=== PATIENT | male | born 1960 | race Caucasian/White ===

== ENCOUNTER 2017-06-08 18:45 | Observation (INO) | payer MEDICARE, MEDICAID, SELFPAY | END 2017-06-09 08:45 | disposition home or self-care (01) | PROVIDERS: Admitting Provider Internal Medicine Adolescent Medicine; Emergency Provider Emergency Medicine; Visit Provider Internal Medicine Adolescent Medicine | DX: J44.1 Chronic obstructive pulmonary disease with (acute) exacerbation (principal); Z72.0 Tobacco use; E46 Unspecified protein-calorie malnutrition; Z68.1 Body mass index [BMI] 19.9 or less, adult | CPT/HCPCS: 71020; 80053; 82803; 83605; 85025; 87040; 87275; 87276; 94640; 96365; 96375; 99284; G0378 ==

== ENCOUNTER 2018-06-04 09:57 | Observation (INO) ==
--- NOTE | 2018-06-04 10:19 | Emergency Department Note ---
ED Disposition Clinical Impression: Hypoxia, COPD exacerbation Community acquired pneumonia Qualifiers: Laterality: left Lung location: lower lobe of lung Qualified Code(s): J18.1 - Lobar pneumonia, unspecified organism Disposition: Still a Patient Condition on Discharge: Fair Referrals: Provider,Referral, [Primary Care Provider] - - Critical Care Critical Care Time: Yes Attestation: On , the high probability of a clinically significant, sudden or life threatening deterioration of the following system(s) required my full and direct attention, intervention and personal management. The time I documented below is in addition to time spent performing reported procedures but includes the follo wing listed in this critical care notation. Total Critical Care Time: 35 Vital system(s) involved:: Respiratory Failure My critical care processes included: Assessment & monitoring of V/S, Initial and Re-exams, Data Review/Interpretation, Coordinating Care, Medication Orders and management, Documentation Medical Decision Making - Marck Inquiry Pt receiving controlled substance: No Vital Signs: 06/04/18 10:06 06/04/18 10:12 06/04/18 10:37 Temperature 98.4 F Temperature Source Oral Pulse Rate 77 Pulse Rate [Left Radial] 90 Respiratory Rate 22 Blood Pressure [Right Arm] 128/61 Blood Pressure Mean [Right Arm] 83 Blood Pressure Source [Right Arm] Automatic Cuff Blood Pressure Position [Right Arm] Sitting 02 Sat by Pulse Oximetry 82 L 95 Oxygen Delivery Method Room Air Nasal Cannula Oxygen Flow Rate (LPM) 4 - Lab Data Lab Results 06/04/18 10:18: WBC 15.1 H, RBC 4.43 L, Hgb 14.5, Hct 44.6, MCV 100.6 H, MCH 32.8 H, MCHC 32.6, RDW 13.5, Plt Count 452 H, MPV 7.2 L, Neut % (Auto) 80.0, Lymph % (Auto) 10.8, [place] % (Auto) 8.7, Eos % (Auto) 0.2, Baso % (Auto) 0.2, Neut # (Auto) 12.0 H, Lymph # (Auto) 1.6, [place] # (Auto) 1.3 H, Eos # (Auto) 0.0, Baso # (Auto) 0.0 06/04/18 10:18: Sodium 130 L, Potassium 4.2, Chloride 92 L, Carbon Dioxide 30, Anion Gap 12.2, BUN 14, Creatinine 0.73, Estimated Creat Clear 94, Estimated GFR 110, Est GFR ( Amer) 133, Glucose 115 H, Calcium 9.4, Troponin I < 0.02 06/04/18 10:18: Lactate 1.0 06/04/18 10:41: Influenza Type A Ag Negative, Influenza Type B Ag Negative Result diagrams: 06/04/18 10:18 06/04/18 10:18 Orders (Tests/Meds): ED MEDICATIONS Generic Name Dose Route Start Last Admin Trade Name Fretito PRN Reason Stop Dose Admin Albuterol/Ipratropium 3 ml 06/04/18 14:00 Duoneb 3ml [facility] 07/04/18 13:59 QIDRT MARCELA Ceftriaxone Sodium 1 gm/ 50 mls @ 100 mls/hr 06/04/18 11:15 Sodium Chloride IV 06/18/18 11:14 Q24H MARCELA Protocol Azithromycin 500 mg/ Sodium 250 mls @ 250 mls/hr 06/04/18 11:15 Chloride IV 06/18/18 11:14 Q24H [facility] Protocol Sodium Chloride 10 ml 06/04/18 10:12 Saline Flush 10ml Syringe IV 07/04/18 10:11 NEEDED PRN Maintain IV Site Sodium Chloride 3 ml 06/04/18 10:25 Sodium Chloride 3% 15ml [facility] 07/04/18 10:24 ONCE PRN INDUCE SPUTUM COLLECTION Discontinued Medications Generic Name Dose Route Start Last Admin Trade Name Halina PRN Reason Stop Dose Admin Methylprednisolone Sodium Succinate 125 mg 06/04/18 10:26 06/04/18 10:58 Solu-Medrol 125mg/2ml Vial IV 06/04/18 10:27 125 mg ONCE ONE Administration ORDERS Category Date Time Status XR chest 2V Stat Exams 06/04/18 10:11 Taken Complete Blood Count Auto Diff Stat Lab 06/04/18 10:18 Results Blood Culture Stat Micro 06/04/18 10:18 Received Sputum Culture & Gram Stain Stat Micro 06/04/18 10:30 Ordered 12-lead EKG Request [ECG Request by /Nse] Stat Y 06/04/18 10:11 Ordered - Radiology Data #1 Image(s): Chest Image Reviewed: Yes I reviewed the patient's radiology image, Yes I discussed the image results w/the radiologist COPD. Questionable tiny infiltrate versus rib overlap left base, otherwise no acute change - ECG Data Tracing #1 EKG interpreted by Lb Solomon MD: Rhythm: sinus Rate: 78 [place]: normal Ectopy: none Conduction: normal ST Segment Changes: none T Wave Changes: none Q Waves: none Poor R wave progression No evidence of acute injury or ischemia Baseline artifact present, but I consider the EKG adequate for accurate interpretation. - Physician Consults Physician Consulted: Amilcar Time: 11:10 Reason -: Admission Comment/Response: Agrees to admit the patient to the hospital. We discussed the patient's clinical information, including history, exam, laboratory and radiology results and ED course. Per hospital procedure, I will write temporary bridge inpatient orders on the patient. Specific orders requested by the admitting physician: Continue antibiotics, steroids, nebulizer treatments, oxygen General Adult HPI - General Chief complaint: Shortness of Breath/Dyspnea Stated complaint: Soa Time Seen by Provider: 06/04/18 10:00 Mode of Arrival: Ambulatory Limitations: No Limitations Description of Symptoms (Recalled from ER Triage Doc. by RN): to ed per pvt car with c/o sob, productive cough with light green sputum chest tightness x 3-4 days pt with hx of COPD states out of inhalers. c/o fever yesterday. cpta none - History of Present Illness HPI narrative: The patient has COPD, still currently smokes, complains of an illness that started about 4 days ago with shortness of breath, wheezing, cough with ex cessive yellow sputum production, fever, rhinorrhea. He is not on oxygen or nebulizers at home. - Related Data Home Medications Medication Instructions Recorded Confirmed Carvedilol [Carvedilol 3.125mg Tab] 3.125 mg PO BID 05/22/18 06/04/18 Duloxetine HCl [Cymbalta] 60 mg PO DAILY 05/22/18 06/04/18 Sacubitril/Valsartan [Entresto 1 tab PO BID 05/22/18 06/04/18 24/26mg Tablet] Allergies Allergy/AdvReac Type Severity Reaction Status Date / Time methocarbamol [From ROBAXIN] Allergy Unknown Verified 05/22/18 10:43 pregabalin [From LYRICA] Allergy Unknown Verified 05/22/18 10:43 [facility] History - Hepatitis A Screen Drug use history?: No High risk sexual behaviors?: No History of sexually transmitted infection?: No Currently employed?: No Childcare worker?: No Do you have indoor plumbing?: Yes Do you have electricity?: Yes Attestation statement:: This patient has been screened for Hepatitis A risk factors. 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 Father - CHF ROS Obtained: Yes All systems reviewed & no additional complaints - Constitutional Constitutional: Reports fever(s) - ENT Ears, Nose, Mouth, and Throat: Reports nasal discharge - Cardiovascular Cardiovascular: Denies chest pain - Respiratory Respiratory: Yes cough, Yes dyspnea, Yes excessive phlegm production - Gastrointestinal Gastrointestingal: Reports: diarrhea. Denies: vomiting Physical Exam - General General appearance: alert, in no apparent distress - Head Head exam: atraumatic, normocephalic - Eye Eye exam: Present: normal appearance, PERRL, EOMI - ENT ENT exam: Present: mucous membranes moist - Neck Neck exam: Present: normal inspection, trachea midline - Chest Chest inspection: Present: normal inspection, symmetric chest wall rise - Respiratory Respiratory exam: Present: wheezes - Cardiovascular Cardiovascular exam: Present: regular rate, normal rhythm, normal heart sounds - Abdominal Exam Abdominal exam: Present: soft, distention. Absent: tenderness, guarding - Extremities Exam Extremities exam: Present: normal inspection, full ROM - Neurological Exam Neurological exam: Present: alert, oriented X3 - Psychiatric Psychiatric exam: Present: normal affect, normal mood - Skin Skin exam: Present: warm, dry
[2018-06-04 10:46] LABS: Anion Gap 12.2 mEq/L (5-15); Blood Urea Nitrogen 14 mg/dL (7-18); Calcium 9.4 mg/dL (8.5-10.1); Carbon Dioxide 30 mmol/L (21.0-32.0); Chloride 92 mmol/L (98-107); Glucose 115 mg/dL (74-106); Potassium 4.2 mmoL/L (3.5-5.1); Sodium 130 mmol/L (136-145)
[2018-06-04 10:50] LABS: Basophils % 0.2 % (0.1-2.0); Eosinophils % 0.2 % (0.1-12.0); Hematocrit 44.6 % (42.0-52.0); Hemoglobin 14.5 g/dL (14.1-18.0); Lymphocytes # 1.6 K/mm3 (0.7-4.5); Lymphocytes % 10.8 % (10-50); Mean Corpuscular HGB Conc 32.6 g/dL (31.8-35.4); Mean Corpuscular Hemoglobin 32.8 pg (27.0-31.2); Mean Corpuscular Volume 100.6 fl (80-94); Mean Platelet Volume 7.2 fl (7.4-10.4); Monocytes # 1.3 K/mm3 (0.1-1.0); Monocytes % 8.7 % (1.7-9.3); Platelet Count 452 K/mm3 (142-424); Red Blood Count 4.43 M/mm3 (4.60-6.20); Red Cell Distribution Width 13.5 % (11.5-17.5); White Blood Count 15.1 K/mm3 (4.8-10.8)
[2018-06-04 11:34] LABS: Lymphocytes % 10 % (10-50); Monocytes % 7 % (2-9); Neutrophils % 83 % (42-76); Total Cells Counted 100
--- NOTE | 2018-06-04 13:12 | Pharmacy Consult Notes ---
[facility] Pharmacy VTE Monitoring - Patient Demographics Admission date: 06/04/18 Report Date: 06/04/18 Time: 13:12 Allergies/Adverse Reactions: Patient Allergies methocarbamol [From ROBAXIN] Allergy (Unknown, Verified 05/22/18 10:43) pregabalin [From LYRICA] Allergy (Unknown, Verified 05/22/18 10:43) Height: 1.88 m Weight: 60.781 kg Patient Problems: Current Active Problems Community acquired pneumonia (Acute) Hypoxia (Acute) COPD exacerbation (Acute) - VTE Risk Labs: VTE Related Lab Results Hgb 14.5 g/dL (14.1-18.0) 06/04/18 10:18 Hct 44.6 % (42.0-52.0) 06/04/18 10:18 Plt Count 452 K/mm3 (142-424) H 06/04/18 10:18 BUN 14 mg/dL (7-18) 06/04/18 10:18 Creatinine 0.73 mg/dL (0.70-1.30) 06/04/18 10:18 Estimated Creat Clear 94 mL/min (50-200) 06/04/18 10:18 Clinical Trial Participant: No - Prophylaxis VTE Prophylaxis Ordered?: Yes Types of VTE Prophylaxis: TEDS Knee High
--- NOTE | 2018-06-04 17:49 | History & Physical Report ---
*Admission Date: 06/04/18 *Chief complaint: Cough/shortness of air *History of present illness: 57-year-old white male with fragmented medical care, poor nutritional status, significant COPD and heavy smoking history who presented to the emergency department with cough, congestion. Found to have infiltrates in his chest, found to have hypoxia, admitted to hospital for IV antibiotics and pulmonary toilet and IV steroids. [facility] History I have reviewed the patient's past medical history: Yes Medical History: Reports:: Chronic Obstructive Pulmonary Disease (COPD) Other Medical History: Reports: Arthritis, Other (Herpes zoster ophthalmicus) Amputation: No Fractures: No - *Social History Smoking Status: Current every day smoker Tobacco Type: cigarettes # Packs/Day (cigarettes): 2 Alcohol Intake: never Alcohol Intake Frequency:: a few times a month Substance Use Type: denies use Occupational Status: disabled - Psychiatric History Expresses thoughts of harming self/others: None Suicide Plan Description: No Plan *Family Hx:: No significant family history Review of Systems - Review of Systems Review of systems:: pertinent systems reviewed and negative unless documented below - Constitutional Reports anorexia, Reports body ache(s), Reports chills, Denies headache(s) - Eyes Denies blurry vision, Denies change in vision - ENT Denies bleeding gums, Denies change in voice - *Cardiovascular Reports shortness of breath, Reports shortness of breath with activity, Denies chest pain, Denies chest pain at rest, Denies irregular heart rhythm, Denies leg swelling, Denies leg sores - *Respiratory Reports change in phlegm color, Reports chest congestion, Reports cough, Reports shortness of breath, Reports excessive phlegm production, Denies coughing up blood - *Gastrointestinal Denies abdominal pain, Denies belching, Denies coffee ground vomit, Denies constipation - *Genitourinary Denies difficulty urinating - *Musculoskeletal Denies abnormal walking Meds Home Medications Medication Instructions Recorded Confirmed Type Carvedilol [Carvedilol 3.125mg Tab] 3.125 mg PO BID 05/22/18 06/04/18 History Duloxetine HCl [Cymbalta] 60 mg PO DAILY 05/22/18 06/04/18 History Sacubitril/Valsartan [Entresto 1 tab PO BID 05/22/18 06/04/18 History 24/26mg Tablet] Tizanidine HCl 4 mg PO TIDP PRN 06/04/18 06/04/18 History Allergies Allergy/AdvReac Type Severity Reaction Status Date / Time methocarbamol [From ROBAXIN] Allergy Unknown Verified 06/04/18 13:28 pregabalin [From LYRICA] Allergy Unknown Verified 06/04/18 13:28 ibuprofen AdvReac Verified 06/04/18 13:29 Exam Vital signs and Labs for Last 24 Hours: Temp Pulse Resp BP Pulse Ox 97.7 F 69 20 96/55 L 93 L 06/04/18 16:00 06/04/18 16:00 06/04/18 16:00 06/04/18 16:00 06/04/18 16:00 Laboratory Results - last 24 hr 06/04/18 10:18: WBC 15.1 H, RBC 4.43 L, Hgb 14.5, Hct 44.6, MCV 100.6 H, MCH 32.8 H, MCHC 32.6, RDW 13.5, Plt Count 452 H, MPV 7.2 L, Neut % (Auto) 80.0, Lymph % (Auto) 10.8, [place] % (Auto) 8.7, Eos % (Auto) 0.2, Baso % (Auto) 0.2, Neut # (Auto) 12.0 H, Lymph # (Auto) 1.6, [place] # (Auto) 1.3 H, Eos # (Auto) 0.0, Baso # (Auto) 0.0, Total Counted 100, Neutrophils % (Manual) 83 H, Lymphocytes % (Manual) 10, Monocytes % (Manual) 7, Platelet Estimate Slight increase 06/04/18 10:18: Sodium 130 L, Potassium 4.2, Chloride 92 L, Carbon Dioxide 30, Anion Gap 12.2, BUN 14, Creatinine 0.73, Estimated Creat Clear 94, Estimated GFR 110, Est GFR ( Amer) 133, Glucose 115 H, Calcium 9.4, Troponin I < 0.02 06/04/18 10:18: Lactate 1.0 06/04/18 10:41: Influenza Type A Ag Negative, Influenza Type B Ag Negative I & O for Last 24 hours: Intake & Output 06/02/18 06/03/18 06/04/18 06/05/18 11:59 11:59 11:59 11:59 Weight 120 lb 6 oz 134 lb Microbiology Reports for the Last 24 Hours: Microbiology 06/04/18 10:30 Sputum - Expectorated Sputum Gram Stain - Final Narrative: Patient is pleasant, alert and oriented. Appears much older than stated age, appears to be cachectic, poor nutrition, significant skin wrinkling. Patient has multiple homemade tattoos on face, wrists and arms. Lungs have rhonchi and crackles in all lung bui, fairly symmetric air entry. No deviation of trachea. Coughs up green/ivania sputum. Heart rate regular, no murmurs. Although his lung sounds diminished the accuracy of the exam. Abdomen scaphoid. No clubbing or cyanosis. No capillary refill deficits. Cranial nerves are intact. Patient is slightly weak but symmetric strength in his extremities. Assessment and Plan (1) Protein-calorie malnutrition, moderate Current visit: Yes Status: Acute Category: Medical Code(s): E44.0 - Moderate protein-calorie malnutrition Complicates all aspects of his care. Nutritional evaluation tomorrow (2) COPD exacerbation Current visit: Yes Status: Acute Category: Medical Code(s): J44.1 - Chronic obstructive pulmonary disease with (acute) exacerbation Agree with admission for IV antibiotics, enhanced pulmonary toilet and IV steroids. (3) Community acquired pneumonia Current visit: Yes Status: Acute Qualifiers: Laterality: left Lung location: lower lobe of lung Qualified Code(s): J18.1 - Lobar pneumonia, unspecified organism Category: Medical Code(s): J18.9 - Pneumonia, unspecified organism Antibiotics as noted above
[2018-06-05 07:23] LABS: Basophils % 0.1 % (0.1-2.0); Hematocrit 41.9 % (42.0-52.0); Hemoglobin 13.4 g/dL (14.1-18.0); Lymphocytes # 1.1 K/mm3 (0.7-4.5); Lymphocytes % 8.3 % (10-50); Mean Corpuscular Hemoglobin 32.3 pg (27.0-31.2); Mean Corpuscular Volume 100.9 fl (80-94); Mean Platelet Volume 7.2 fl (7.4-10.4); Monocytes # 0.5 K/mm3 (0.1-1.0); Monocytes % 4.1 % (1.7-9.3); Neutrophils # 11.3 K/mm3 (1.8-7.8); Neutrophils % 87.5 % (37.0-80.0); Platelet Count 446 K/mm3 (142-424); Red Blood Count 4.15 M/mm3 (4.60-6.20); Red Cell Distribution Width 13.5 % (11.5-17.5); White Blood Count 12.9 K/mm3 (4.8-10.8)
[2018-06-05 07:54] LABS: Albumin Level 2.9 gm/dL (3.4-5.0); Albumin/Globulin Ratio 0.7 (1.1-1.8); Bilirubin,Total 0.4 mg/dL (0.2-1.0); Calcium 9.1 mg/dL (8.5-10.1); Globulin 4.4 gm/dl (1.3-3.2); Total Protein,Serum 7.3 gm/dL (6.4-8.2)
[2018-06-05 08:16] LABS: Lymphocytes % 6 % (10-50); Monocytes % 4 % (2-9); Neutrophils % 90 % (42-76); Total Cells Counted 100
--- NOTE | 2018-06-05 08:32 | Discharge Summary ---
General - General Admission date:: 06/04/18 Discharge date: 06/05/18 HPI HPI: 57-year-old white male with fragmented medical care, poor nutritional status, significant COPD and heavy smoking history who presented to the emergency department with cough, congestion. Found to have infiltrates in his chest, found to have hypoxia, admitted to hospital for IV antibiotics and pulmonary toilet and IV steroids. Hospital Course Hospital Course: Patient was admitted, placed on IV antibiotics and steroids, improved nicely overnight. This morning has no oxygen requirement, is 92% on room air. Feels much better and wishes to go home. Plan will be to discharge home. We will follow him up in our offices. Medication sent to pharmacy and we will begin maintenance and as needed inhalers. Objective Vital signs: Temp Pulse Resp BP Pulse Ox 97.6 F 65 18 111/58 L 91 L 06/05/18 08:00 06/05/18 08:00 06/05/18 08:00 06/05/18 08:00 06/05/18 08:00 Narrative: Overall patient looks much better. Better air entry. Rhonchi in both lung bui. Abdomen soft and nontender. Oropharynx clear. Heart rate regular without murmurs. No focal neurologic deaf. Results Labs on day of discharge: Labs from last 24 hours 06/05/18 06/05/18 06/04/18 06:55 06:55 10:41 WBC 12.9 H RBC 4.15 L Hgb 13.4 L Hct 41.9 L MCV 100.9 H MCH 32.3 H MCHC 32.0 RDW 13.5 Plt Count 446 H MPV 7.2 L Neut % (Auto) 87.5 H Lymph % (Auto) 8.3 L [place] % (Auto) 4.1 Eos % (Auto) 0.0 L Baso % (Auto) 0.1 Neut # (Auto) 11.3 H Lymph # (Auto) 1.1 [place] # (Auto) 0.5 Eos # (Auto) 0.0 Baso # (Auto) 0.0 Total Counted 100 Neutrophils % (Manual) 90 H Lymphocytes % (Manual) 6 L Monocytes % (Manual) 4 Platelet Estimate Slight increase Sodium 131 L Potassium 4.0 Chloride 95 L Carbon Dioxide 30 Anion Gap 10.0 BUN 19 H D Creatinine 0.65 L Estimated Creat Clear 105 Estimated GFR 126 Est GFR ( Amer) 152 Glucose 164 H D Lactate Calcium 9.1 Total Bilirubin 0.4 AST 25 ALT 45 Alkaline Phosphatase 125 H Troponin I Total Protein 7.3 Albumin 2.9 L Globulin 4.4 H Albumin/Globulin Ratio 0.7 L Influenza Type A Ag Negative Influenza Type B Ag Negative 06/04/18 06/04/18 06/04/18 10:18 10:18 10:18 WBC 15.1 H RBC 4.43 L Hgb 14.5 Hct 44.6 MCV 100.6 H MCH 32.8 H MCHC 32.6 RDW 13.5 Plt Count 452 H MPV 7.2 L Neut % (Auto) 80.0 Lymph % (Auto) 10.8 [place] % (Auto) 8.7 Eos % (Auto) 0.2 Baso % (Auto) 0.2 Neut # (Auto) 12.0 H Lymph # (Auto) 1.6 [place] # (Auto) 1.3 H Eos # (Auto) 0.0 Baso # (Auto) 0.0 Total Counted 100 Neutrophils % (Manual) 83 H Lymphocytes % (Manual) 10 Monocytes % (Manual) 7 Platelet Estimate Slight increase Sodium 130 L Potassium 4.2 Chloride 92 L Carbon Dioxide 30 Anion Gap 12.2 BUN 14 Creatinine 0.73 Estimated Creat Clear 94 Estimated GFR 110 Est GFR ( Amer) 133 Glucose 115 H Lactate 1.0 Calcium 9.4 Total Bilirubin AST ALT Alkaline Phosphatase Troponin I < 0.02 Total Protein Albumin Globulin Albumin/Globulin Ratio Influenza Type A Ag Influenza Type B Ag DS: Diagnosis - Discharge Diagnosis (1) Protein-calorie malnutrition, moderate Status: Chronic (2) COPD exacerbation Status: Acute (3) Community acquired pneumonia Status: Acute Discharge Plan - Patient Discharge Instructions ACTIVITY: Continue current activity DIET: continue same diet - Follow up Plan Follow up with: Ana Liang APRN [Nurse Practitioner] - 06/12/18 12:00 pm Disposition: Home, Self-Half-Way Medications: Home Medications Medication Instructions Recorded Confirmed Type Carvedilol [Carvedilol 3.125mg Tab] 3.125 mg PO BID 05/22/18 06/04/18 History Duloxetine HCl [Cymbalta] 60 mg PO DAILY 05/22/18 06/04/18 History Sacubitril/Valsartan [Entresto 1 tab PO BID 05/22/18 06/04/18 History 24/26mg Tablet] Tizanidine HCl 4 mg PO TIDP PRN 06/04/18 06/04/18 History Albuterol Sulfate [Proair Hfa 2 puffs IH Q4HP PRN #1 inh 06/05/18 Rx 90mcg/puff Inh] Azithromycin [Zithromax 250mg 250 mg PO DIRECTED #6 tab 06/05/18 Rx tab] Cefdinir [Omnicef 300mg Capsule] 300 mg PO BID #14 cap 06/05/18 Rx Umeclidinium Brm/Vilanterol Tr 1 each IH DAILY #1 blst.w.dev 06/05/18 Rx [Anoro Ellipta 62.5-25 Mcg INH] predniSONE [Deltasone 20mg 20 mg PO BID 7 Days #14 tab 06/05/18 Rx tablet] Prescriptions/Medication Reconciliation: New Azithromycin [Zithromax 250mg tab] 250 mg PO DIRECTED #6 tab Cefdinir [Omnicef 300mg Capsule] 300 mg PO BID #14 cap predniSONE [Deltasone 20mg tablet] 20 mg PO BID 7 Days #14 tab Umeclidinium Brm/Vilanterol Tr [Anoro Ellipta 62.5-25 Mcg INH] 1 each IH DAILY #1 blst.w.dev Albuterol Sulfate [Proair Hfa 90mcg/puff Inh] 2 puffs IH Q4HP PRN #1 inh PRN Reason: Shortness Of Breath Or Wheezing Continue Sacubitril/Valsartan [Entresto 24/26mg Tablet] 1 tab PO BID Duloxetine HCl [Cymbalta] 60 mg PO DAILY Carvedilol [Carvedilol 3.125mg Tab] 3.125 mg PO BID Tizanidine HCl 4 mg PO TIDP PRN PRN Reason: MUSCLE SPASMS
== END 2018-06-05 09:08 | disposition home or self-care (01) ==
LOC: ER 09:57 → 2ND 09:57
PROVIDERS: ADMIT Internal Medicine Adolescent Medicine; ATTEND Internal Medicine Adolescent Medicine

== ENCOUNTER → 2018-08-19 10:52 | Outpatient (CLI) | payer MEDICARE, MEDICAID, SELFPAY ==
--- NOTE | 2018-08-19 10:54 | CA_ITS ---
CA echo doppler complete PROCEDURE: INDICATIONS FOR THE TEST: Chest pain COPDX Heart Murmur Tobacco SmokingX Palpitations Fatigue Syncope Edema Hypertension Diabetes Mellitus Rheumatic Fever SOB CHRISTENSEN Obesity Hyperlipidemia Family History HD Additional History CM, PATIENT INFORMATION HEIGHT: 72 WEIGHT:129 GENDER: Male B/P:118/67 2-D/M-MODE INTERPRETATION: 2-D MEASUREMENTS OBSERVED VALUES IN CMS Right Ventricular Dimension (RVDd) 1.5 Interventricular Septum (Thickness)(IVsd) .8 Left Ventricular Internal Dimensions(LVIDd) 6.0 Left Ventricular Posterior Wall (Thickness)(LVPWd) .8 Aortic Root 3.6 Aortic Cusp Separation 2.2 Left Atrial Dimensions (LAD) 2.4 2D 1. Left atrium is mildly enlarged, left ventricle is mildly dilated, moderately reduced left ventricular systolic function, visually estimated ejection fraction approximately 40% left ventricle is globally hypokinetic. 2. The right atrium and right ventricle are normal size and contractility. 3. The aortic valve is minimally thickened and fibrosed. 4. The mitral and tricuspid valve leaflets are minimally thickened 5. The pulmonic valve is poorly present. 6. No significant pericardial effusion noted. DOPPLER INTERROGATION: Doppler interrogation of the aortic, mitral and tricuspid valvular presence of mild mitral and tricuspid regurgitation, calculated right ventricular systolic pressure is 37 mmHg, diastolic parameters are within normal range. CONCLUSION: 1. Mildly enlarged left atrium, mildly dilated left ventricle, moderately reduced left ventricular systolic function, visually estimated ejection fraction approximately 40%, left ventricle is globally hypokinetic. Diastolic parameters are within normal range. 2. Mild mitral and tricuspid regurgitation 3. No significant pericardial effusion noted.
== END ==
PROVIDERS: Visit Provider Physician Assistant
DX: B02.30 Zoster ocular disease, unspecified (principal); F17.200 Nicotine dependence, unspecified, uncomplicated; G62.9 Polyneuropathy, unspecified; H57.11 Ocular pain, right eye; I42.9 Cardiomyopathy, unspecified; Z01.818 Encounter for other preprocedural examination
CPT/HCPCS: 93306

== ENCOUNTER 2019-05-26 13:36 | Observation (INO) ==
--- NOTE | 2019-05-26 13:50 | Emergency Department Note ---
ED Disposition Clinical Impression: Hypoxia Community acquired pneumonia Qualifiers: Laterality: right Lung location: lower lobe of lung Qualified Code(s): J18.9 - Pneumonia, unspecified organism COPD (chronic obstructive pulmonary disease) Qualifiers: COPD type: unspecified COPD Qualified Code(s): J44.9 - Chronic obstructive pulmonary disease, unspecified Disposition: Admitted As Inpatient Condition on Discharge: Fair Referrals: Ricki Bales JR, MD [Primary Care Provider] - - Critical Care Critical Care Time: No Attestation: On , the high probability of a clinically significant, sudden or life threatening deterioration of the following system(s) required my full and direct attention, intervention and personal management. The time I documented below is in addition to time spent performing reported procedures but includes the following listed in this critical care notation. Medical Decision Making - [place] Inquiry Pt receiving controlled substance: No Vital Signs: 05/26/19 13:38 Temperature 98.5 F Temperature Source Oral Pulse Rate [Right Radial] 65 Respiratory Rate 20 Blood Pressure [Right Arm] 136/75 Blood Pressure Mean [Right Arm] 95 02 Sat by Pulse Oximetry 87 L Oxygen Delivery Method Room Air - Lab Data Lab Results 05/26/19 13:45: WBC 11.7 H, RBC 4.19 L, Hgb 13.2 L, Hct 41.3 L, MCV 98.5 H, MCH 31.6 H, MCHC 32.0, RDW 13.0, Plt Count 524 H, MPV 7.8, Neut % (Auto) 72.9, Lymph % (Auto) 15.4, [place] % (Auto) 9.4 H, Eos % (Auto) 1.8, Baso % (Auto) 0.3, Neut # (Auto) 8.5 H, Lymph # (Auto) 1.8, [place] # (Auto) 1.1 H, Eos # (Auto) 0.2, Baso # (Auto) 0.0 05/26/19 13:45: Sodium 135 L, Potassium 4.2, Chloride 95 L, Carbon Dioxide 33 H, Anion Gap 11.2, BUN 7, Creatinine 0.61 L, Estimated Creat Clear 116, Estimated GFR 135, Est GFR ( Amer) 163, Glucose 97, Calcium 8.7, Troponin I < 0.02 05/26/19 13:45: Total Bilirubin 0.4, Direct Bilirubin 0.1, Indirect Bilirubin 0.3, AST 7 L, ALT 21, Alkaline Phosphatase 136 H, Total Protein 7.5, Albumin 2.7 L 05/26/19 14:05: Influenza Type A Ag Negative, Influenza Type B Ag Negative Result diagrams: 05/26/19 13:45 05/26/19 13:45 Orders (Tests/Meds): ED MEDICATIONS Generic Name Dose Route Start Last Admin Trade Name Freq PRN Reason Stop Dose Admin Ceftriaxone Sodium 1 gm/ 50 mls @ 100 mls/hr 05/26/19 15:00 05/26/19 15:18 Sodium Chloride IV 06/09/19 14:59 100 mls/hr Q24H MARCELA Administration Protocol Azithromycin 500 mg/ Sodium 250 mls @ 250 mls/hr 05/26/19 15:00 Chloride IV 06/09/19 14:59 Q24H MARCELA Protocol Discontinued Medications Generic Name Dose Route Start Last Admin Trade Name Freq PRN Reason Stop Dose Admin Aspirin 324 mg 05/26/19 13:45 05/26/19 13:59 Aspirin 81mg Chewable Tablet PO 05/26/19 13:46 324 mg ONCE ONE Administration ORDERS Category Date Time Status Lactic Acid Stat Lab 05/26/19 15:00 Received Troponin I Q3H Lab 05/26/19 16:45 Ordered Troponin I Q3H Lab 05/26/19 19:45 Ordered Blood Culture Stat Micro 05/26/19 13:45 Received - Radiology Data #1 Image(s): Chest Image Reviewed: Yes I have reviewed radiologist's interpretation FINDINGS: The cardiomediastinal silhouette and pulmonary vascularity are within normal limits. There are new infiltrates in the right upper lobe and in the right perihilar lung field. Chronic increased interstitial markings are otherwise noted. Some increased density associated with posterior lateral right 6th rib fracture is noted likely representing callus formation. A 5 millimeter nodule like opacity projects over the left lung field between the anterior 4th and 5th ribs. Developing pulmonary nodule is not excluded. Follow-up is recommended. No acute bony abnormalities. IMPRESSION: New right sided infiltrates superimposed on chronic interstitial pneumonitis. New 5 millimeter nodule like opacity projecting over left mid lung field for which follow-up is recommended. Dictated by: Daniel Motley 05/26/2019 14:21 Electronically signed by Daniel Motley in [place] 05/26/2019 14:21 - ECG Data Tracing #1 EKG interpreted by Lb Solomon MD: Rhythm: sinus Rate: 65 [place]: normal Ectopy: none Conduction: normal ST Segment Changes: none T Wave Changes: none Q Waves: none No evidence of acute ischemia or injury Normal electrocardiogram General Adult HPI - General Chief complaint: Chest Pain Stated complaint: Chest Pain Time Seen by Provider: 05/26/19 14:03 Mode of Arrival: Ambulatory Limitations: No Limitations Description of Symptoms (Recalled from ER Triage Doc. by RN): pt presents to ed with c/o chest pain x 3-4 days. pt describes the pain as a tightness in his upper chest.pt denies fever. - History of Present Illness HPI narrative: States that he has had a "virus" for 4 to 5 days. He has a productive cough, rhinorrhea, subjective fever. He says his abdomen hurts from coughing so much and now it has moved up into his anterior chest, which now also hurts with coughing. Denies vomiting or diarrhea. He is a smoker. He has a prior history of pneumonia. He says he had a flu shot this year. He has COPD. - Related Data Home Medications Medication Instructions Recorded Confirmed duloxetine 60 mg capsule,delayed 100 mg PO TID cap 08/19/18 release Previous Rx's Medication Instructions Recorded Umeclidinium Brm/Vilanterol Tr 1 each IH DAILY #1 blst.w.dev 06/05/18 [Anoro Ellipta 62.5-25 Mcg INH] tizanidine 4 mg capsule 4 mg PO TID PRN #90 cap 06/19/18 carvedilol 3.125 mg tablet 3.125 mg PO BID #60 tab 12/29/18 Hydrocod/Acet 5/325 mg [[place] 1 tab PO Q6HP PRN #10 tab 01/20/19 5/325mg tablet] sacubitril 24 mg-valsartan 26 mg 1 tab PO BID #60 tab 03/09/19 tablet Allergies Allergy/AdvReac Type Severity Reaction Status Date / Time methocarbamol [From ROBAXIN] Allergy Unknown Verified 05/26/19 13:44 pregabalin [From LYRICA] Allergy Unknown Verified 05/26/19 13:44 ibuprofen AdvReac Verified 05/26/19 13:44 [facility]H History - Hepatitis A Screen Drug use history?: No High risk sexual behaviors?: No History of sexually transmitted infection?: No Currently employed?: No Childcare worker?: No Do you have indoor plumbing?: Yes Do you have electricity?: Yes Attestation statement:: This patient has been screened for Hepatitis A risk factors. I have reviewed the patient's past medical history: Yes Medical History: Reports:: Chronic Obstructive Pulmonary Disease (COPD) Denies:: Diabetes Mellitus Type 1, Diabetes Mellitus Type 2 Other Medical History: Reports: Arthritis, Other (Herpes zoster ophthalmicus) Amputation: No Fractures: Yes Comment: Neck surgery X2 - Social History Smoking Status: Current every day smoker Tobacco Type: cigarettes # Packs/Day (cigarettes): 1 Alcohol Intake: never Alcohol Intake Frequency:: a few times a month Substance Use Type: denies use Occupational Status: disabled Family Hx:: No significant family history Comment: Mother - COPD & CHF. Father - CHF ROS Obtained: Yes All systems reviewed & no additional complaints - Constitutional Constitutional: Reports fever(s) (Subjective) - ENT Ears, Nose, Mouth, and Throat: Reports nasal discharge, Denies sore throat - Cardiovascular Cardiovascular: Reports chest pain - Respiratory Respiratory: Yes cough, Yes pain with cough - Gastrointestinal Gastrointestingal: Reports: abdominal pain. Denies: diarrhea, vomiting Physical Exam - General General appearance: alert, in no apparent distress - Head Head exam: atraumatic, normocephalic - Eye Eye exam: Present: normal appearance, EOMI - ENT ENT exam: Present: normal exam, normal oropharynx, mucous membranes moist - Neck Neck exam: Present: normal inspection, trachea midline - Chest Chest inspection: Present: normal inspection, symmetric chest wall rise - Respiratory Respiratory exam: Present: normal lung sounds bilaterally. Absent: respiratory distress - Cardiovascular Cardiovascular exam: Present: regular rate, normal rhythm, normal heart sounds - Abdominal Exam Abdominal exam: Present: soft, normal bowel sounds. Absent: distention, tenderness - Extremities Exam Extremities exam: Present: normal inspection - Neurological Exam Neurological exam: Present: alert, oriented X3 - Psychiatric Psychiatric exam: Present: normal affect, normal mood - Skin Skin exam: Present: warm, dry
[2019-05-26 14:02] LABS: Basophils % 0.3 % (0.1-2.0); Eosinophils # 0.2 K/mm3 (0.0-0.4); Eosinophils % 1.8 % (0.1-12.0); Hematocrit 41.3 % (42.0-52.0); Hemoglobin 13.2 g/dL (14.1-18.0); Lymphocytes # 1.8 K/mm3 (0.7-4.5); Lymphocytes % 15.4 % (10-50); Mean Corpuscular Volume 98.5 fl (80-94); Mean Platelet Volume 7.8 fl (7.4-10.4); Monocytes # 1.1 K/mm3 (0.1-1.0); Monocytes % 9.4 % (1.7-9.3); Neutrophils # 8.5 K/mm3 (1.8-7.8); Neutrophils % 72.9 % (37.0-80.0); Platelet Count 524 K/mm3 (142-424); Red Blood Count 4.19 M/mm3 (4.60-6.20); White Blood Count 11.7 K/mm3 (4.8-10.8)
--- NOTE | 2019-05-26 14:10 | Electrocardiograph Report ---
APPROVED REPORT Exam: Resting ECG HR:65 bpm ECG Measurements Heart Rate 65 AXES PA 138 P 83 QRSd 82 QRS 80 QT 398 T78 QTc 413 <Conclusion> Normal sinus rhythm Normal ECG Electronically signed by : Alli Fitzgerald, 05/26/2019 14:09:35
[2019-05-26 14:12] LABS: Albumin Level 2.7 gm/dL (3.4-5.0); Bilirubin,Direct 0.1 mg/dL (0.0-0.2); Bilirubin,Indirect 0.3 mg/dL (0.0-0.9); Bilirubin,Total 0.4 mg/dL (0.2-1.0); Total Protein,Serum 7.5 gm/dL (6.4-8.2)
[2019-05-26 14:13] LABS: Anion Gap 11.2 mEq/L (5-15); Blood Urea Nitrogen 7 mg/dL (7-18); Calcium 8.7 mg/dL (8.5-10.1); Carbon Dioxide 33 mmol/L (21.0-32.0); Chloride 95 mmol/L (98-107); Glucose 97 mg/dL (74-106); Sodium 135 mmol/L (136-145)
--- NOTE | 2019-05-26 20:19 | History & Physical Report ---
*Admission Date: 05/26/19 *Chief complaint: sob *History of present illness: this pt presented to the ed with sob over the last 3-4 days - hx od copd -pt presents to ed with c/o chest pain x 3-4 days. pt describes the pain as a tightness in his upper chest States that he has had a "virus" for 4 to 5 days. He has a productive cough, rhinorrhea, subjective fever. He says his abdomen hurts from coughing so much and now it has moved up into his anterior chest, which now also hurts with coughing. Denies vomiting or diarrhea. He is a smoker. He has a prior history of pneumonia. He says he had a flu shot this year. He has COPD. pt was admitted with acute excerbation of copd with cap - pt was admitted for ivf and abx and pul toilet [facility] History I have reviewed the patient's past medical history: Yes Medical History: Reports:: Chronic Obstructive Pulmonary Disease (COPD) Denies:: Cancer, Diabetes Mellitus Type 1, Diabetes Mellitus Type 2, MRSA *Have you ever received a pneumonia vaccine?: No *Have you received a flu vaccine this season?: Yes Other Medical History: Reports: Arthritis, Other (Herpes zoster ophthalmicus) Amputation: No Fractures: Yes - *Social History Educational Level: Attended High School Smoking Status: Current every day smoker Tobacco Type: cigarettes # Packs/Day (cigarettes): 2 Alcohol Intake: former Alcohol Intake Frequency:: a few times a month Substance Use Type: denies use *Occupational Status:: disabled Housing: house Household Members: friend(s) *Travel in the last 8 weeks: None Family Hx:: No significant family history Review of Systems - Review of Systems Review of systems:: pertinent systems reviewed and negative unless documented below - Constitutional Reports weakness, Denies headache(s) - Eyes Denies change in vision - ENT Denies sore throat - *Cardiovascular Reports chest pain at rest - *Respiratory Reports shortness of breath, Denies cough, Denies coughing up blood - *Gastrointestinal Denies abdominal pain - *Musculoskeletal Denies joint pain - Integumentary/Breasts Denies rash - *Neurologic Denies seizure-like activity - Psychiatric Denies anxiety Meds Home Medications Medication Instructions Recorded Confirmed Type tizanidine 4 mg capsule 4 mg PO TID PRN #90 cap 06/19/18 05/26/19 Rx duloxetine 60 mg capsule,delayed 100 mg PO TID cap 08/19/18 05/26/19 History release carvedilol 3.125 mg tablet 3.125 mg PO BID #60 tab 12/29/18 05/26/19 Rx Hydrocod/Acet 5/325 mg [[place] 1 tab PO Q6HP PRN #10 tab 01/20/19 05/26/19 Rx 5/325mg tablet] sacubitril 24 mg-valsartan 26 mg 1 tab PO BID #60 tab 03/09/19 05/26/19 Rx tablet Umeclidinium Brm/Vilanterol Tr 1 each IH DAILY 05/26/19 05/26/19 History [Anoro Ellipta 62.5-25 Mcg INH] Allergies Allergy/AdvReac Type Severity Reaction Status Date / Time methocarbamol [From ROBAXIN] Allergy Unknown Verified 05/26/19 13:44 pregabalin [From LYRICA] Allergy Unknown Verified 05/26/19 13:44 ibuprofen AdvReac Verified 05/26/19 13:44 Exam Vital signs and Labs for Last 24 Hours: Temp Pulse Resp BP Pulse Ox 98.4 F 70 18 116/76 95 05/26/19 16:03 05/26/19 16:03 05/26/19 16:03 05/26/19 16:03 05/26/19 16:00 Laboratory Results - last 24 hr 05/26/19 13:45: WBC 11.7 H, RBC 4.19 L, Hgb 13.2 L, Hct 41.3 L, MCV 98.5 H, MCH 31.6 H, MCHC 32.0, RDW 13.0, Plt Count 524 H, MPV 7.8, Neut % (Auto) 72.9, Lymph % (Auto) 15.4, [place] % (Auto) 9.4 H, Eos % (Auto) 1.8, Baso % (Auto) 0.3, Neut # (Auto) 8.5 H, Lymph # (Auto) 1.8, [place] # (Auto) 1.1 H, Eos # (Auto) 0.2, Baso # (Auto) 0.0 05/26/19 13:45: Sodium 135 L, Potassium 4.2, Chloride 95 L, Carbon Dioxide 33 H, Anion Gap 11.2, BUN 7, Creatinine 0.61 L, Estimated Creat Clear 116, Estimated GFR 135, Est GFR ( Amer) 163, Glucose 97, Calcium 8.7, Troponin I < 0.02 05/26/19 13:45: Total Bilirubin 0.4, Direct Bilirubin 0.1, Indirect Bilirubin 0.3, AST 7 L, ALT 21, Alkaline Phosphatase 136 H, Total Protein 7.5, Albumin 2.7 L 05/26/19 14:05: Influenza Type A Ag Negative, Influenza Type B Ag Negative 05/26/19 15:00: Lactate 0.4 05/26/19 15:50: Troponin I < 0.02 05/26/19 19:45: Troponin I < 0.02 I & O for Last 24 hours: Intake & Output 05/24/19 05/25/19 05/26/19 05/27/19 11:59 11:59 11:59 11:59 Intake Total 300 / 300 Balance 300 / 300 Weight 126 lb 2 oz - Constitutional no acute distress, thin - *Routine HEENT Exam Head: Present: normocephalic Eye: Present: EOMI, PERRL ENT: Present: mucous membranes dry - *Routine Neck Exam Present: supple - *Routine Respiratory Exam Present: decreased breath sounds, wheezes - *Routine Cardiovascular Exam Present: RRR, murmur, S4 - *Routine Abdominal Exam Present: soft - *Routine Extremities Exam Absent: calf tenderness - *Routine Skin Exam Present: intact - *Routine Neurological Exam Present: alert, CN II-XII intact - Routine Psychiatric Exam Present: anxious Assessment and Plan (1) CAP (community acquired pneumonia) Current visit: Yes Status: Acute Qualifiers: Laterality: right Lung location: lower lobe of lung Qualified Code(s): J18.9 - Pneumonia, unspecified organism Category: Medical Code(s): J18.9 - Pneumonia, unspecified organism (2) COPD (chronic obstructive pulmonary disease) Current visit: Yes Status: Acute Qualifiers: COPD type: unspecified COPD Qualified Code(s): J44.9 - Chronic obstructive pulmonary disease, unspecified Category: Medical Code(s): J44.9 - Chronic obstructive pulmonary disease, unspecified (3) Low body mass index (BMI) Current visit: Yes Status: Acute Category: Medical (4) Tobacco use Current visit: Yes Status: Acute Category: Medical Code(s): Z72.0 - Tobacco use (5) Herpes zoster ophthalmicus, right eye Current visit: No Status: Acute Category: Medical Code(s): B02.30 - Zoster ocular disease, unspecified (6) Neuropathy Current visit: Yes Status: Acute Category: Medical Code(s): G62.9 - Polyneuropathy, unspecified
--- NOTE | 2019-05-27 08:13 | Pharmacy Consult Notes ---
[facility] Pharmacy VTE Monitoring - Patient Demographics Admission date: 05/26/19 Report Date: 05/27/19 Time: 08:13 Allergies/Adverse Reactions: Patient Allergies methocarbamol [From ROBAXIN] Allergy (Unknown, Verified 05/26/19 13:44) pregabalin [From LYRICA] Allergy (Unknown, Verified 05/26/19 13:44) ibuprofen Adverse Reaction (Verified 05/26/19 13:44) Height: 1.88 m Weight: 57.209 kg Patient Problems: Current Active Problems Community acquired pneumonia (Acute) Hypoxia (Acute) COPD (chronic obstructive pulmonary disease) (Acute) CAP (community acquired pneumonia) (Acute) Low body mass index (BMI) (Acute) Tobacco use (Acute) Neuropathy (Acute) - VTE Risk Labs: VTE Related Lab Results Hgb 13.2 g/dL (14.1-18.0) L 05/26/19 13:45 Hct 41.3 % (42.0-52.0) L 05/26/19 13:45 Plt Count 524 K/mm3 (142-424) H 05/26/19 13:45 BUN 7 mg/dL (7-18) 05/26/19 13:45 Creatinine 0.61 mg/dL (0.70-1.30) L 05/26/19 13:45 Estimated Creat Clear 116 mL/min (50-200) 05/26/19 13:45 - Prophylaxis VTE Prophylaxis Ordered?: Yes Types of VTE Prophylaxis: TEDS Knee High Location of Applied Device: Bilateral Lower Extremeties - VTE Diagnosis Confirmed Treatment or plan recommended: Continue Current Treatment
--- NOTE | 2019-05-27 12:17 | Progress Note ---
Internal Medicine - PN: Subj *Date: 05/27/19 *Time: 08:30 Interval history: doing better - still on o2 - Exam Vital signs and Labs for Last 24 Hours: Temp Pulse Resp BP Pulse Ox 98.7 F 63 19 119/58 L 93 L 05/27/19 12:00 05/27/19 12:00 05/27/19 12:00 05/27/19 12:00 05/27/19 12:00 Laboratory Results - last 24 hr 05/26/19 13:45: WBC 11.7 H, RBC 4.19 L, Hgb 13.2 L, Hct 41.3 L, MCV 98.5 H, MCH 31.6 H, MCHC 32.0, RDW 13.0, Plt Count 524 H, MPV 7.8, Neut % (Auto) 72.9, Lymph % (Auto) 15.4, [place] % (Auto) 9.4 H, Eos % (Auto) 1.8, Baso % (Auto) 0.3, Neut # (Auto) 8.5 H, Lymph # (Auto) 1.8, [place] # (Auto) 1.1 H, Eos # (Auto) 0.2, Baso # (Auto) 0.0 05/26/19 13:45: Sodium 135 L, Potassium 4.2, Chloride 95 L, Carbon Dioxide 33 H, Anion Gap 11.2, BUN 7, Creatinine 0.61 L, Estimated Creat Clear 116, Estimated GFR 135, Est GFR ( Amer) 163, Glucose 97, Calcium 8.7, Troponin I < 0.02 05/26/19 13:45: Total Bilirubin 0.4, Direct Bilirubin 0.1, Indirect Bilirubin 0.3, AST 7 L, ALT 21, Alkaline Phosphatase 136 H, Total Protein 7.5, Albumin 2.7 L 05/26/19 14:05: Influenza Type A Ag Negative, Influenza Type B Ag Negative 05/26/19 15:00: Lactate 0.4 05/26/19 15:50: Troponin I < 0.02 05/26/19 19:45: Troponin I < 0.02 I & O for Last 24 hours: Intake & Output 05/25/19 05/26/19 05/27/19 05/28/19 11:59 11:59 11:59 11:59 Intake Total 1927 Balance 1927 Weight 126 lb 1.988 oz Microbiology Reports for the Last 24 Hours: Microbiology 05/26/19 23:45 Sputum - Expectorated Sputum Gram Stain - Final - Constitutional no acute distress - *Routine HEENT Exam Head: Present: normocephalic Eye: Present: EOMI, PERRL ENT: Present: mucous membranes dry - *Routine Neck Exam Absent: JVD - *Routine Respiratory Exam Present: rhonchi - *Routine Cardiovascular Exam Present: RRR, murmur - *Routine Abdominal Exam Present: soft - *Routine Extremities Exam Absent: calf tenderness - *Routine Skin Exam Present: intact - *Routine Neurological Exam Present: alert, CN II-XII intact - Routine Psychiatric Exam Present: normal affect Assessment and Plan (1) CAP (community acquired pneumonia) Current visit: Yes Status: Acute Qualifiers: Laterality: right Lung location: lower lobe of lung Qualified Code(s): J18.9 - Pneumonia, unspecified organism Category: Medical Code(s): J18.9 - Pneumonia, unspecified organism (2) COPD (chronic obstructive pulmonary disease) Current visit: Yes Status: Acute Qualifiers: COPD type: unspecified COPD Qualified Code(s): J44.9 - Chronic obstructive pulmonary disease, unspecified Category: Medical Code(s): J44.9 - Chronic obstructive pulmonary disease, unspecified (3) Low body mass index (BMI) Current visit: Yes Status: Acute Category: Medical (4) Tobacco use Current visit: Yes Status: Acute Category: Medical Code(s): Z72.0 - Tobacco use (5) Herpes zoster ophthalmicus, right eye Current visit: No Status: Acute Category: Medical Code(s): B02.30 - Zoster ocular disease, unspecified (6) Neuropathy Current visit: Yes Status: Acute Category: Medical Code(s): G62.9 - Polyneuropathy, unspecified
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
--- NOTE | 2019-05-28 09:23 | Discharge Summary ---
General - General Admission date:: 05/26/19 Discharge date: 05/28/19 HPI HPI: this pt presented to the ed with sob over the last 3-4 days - hx od copd -pt presents to ed with c/o chest pain x 3-4 days. pt describes the pain as a tightness in his upper chest States that he has had a "virus" for 4 to 5 days. He has a productive cough, rhinorrhea, subjective fever. He says his abdomen hurts from coughing so much and now it has moved up into his anterior chest, which now also hurts with coughing. Denies vomiting or diarrhea. He is a smoker. He has a prior history of pneumonia. He says he had a flu shot this year. He has COPD. pt was admitted with acute excerbation of copd with cap - pt was admitted for ivf and abx and pul toilet Hospital Course Hospital Course: this pt presented to the ed with sob over the last 3-4 days - hx od copd -pt presents to ed with c/o chest pain x 3-4 days. pt describes the pain as a tightness in his upper chest States that he has had a "virus" for 4 to 5 days. He has a productive cough, rhinorrhea, subjective fever. He says his abdomen hurts from coughing so much and now it has moved up into his anterior chest, which now also hurts with coughing. Denies vomiting or diarrhea. He is a smoker. He has a prior history of pneumonia. He says he had a flu shot this year. He has COPD. pt was admitted with acute excerbation of copd with cap - pt was admitted for ivf and abx and pul toilet (Per Dr. Wadsworth). While in hospital he has been treated with azithromycin and Rocephin IV. Cardiology has seen and recommended recommendations noted we will follow-up on chest x-ray and chest CT outpatient. 05/26 CXR: IMPRESSION: New right sided infiltrates superimposed on chronic interstitial pneumonitis. New 5 millimeter nodule like opacity projecting over left mid lung field for which follow-up is recommended. Dictated by: Dr. Motley, 05/[address]: IMPRESSION: 1. Diffuse irregular opacities with areas of consolidation in the right upper and right lower lobe which may be inflammatory or infectious. 2. 1.6 x 1 cm irregular opacity in the left lung base. This could also be inflammatory or infectious. A developing nodule however is not excluded. Recommend 3 month follow-up without and with contrast to confirm resolution.. 3. COPD/centrilobular emphysema with bronchial thickening Dictated by: Dr. Lopez, Cardiology has seen and recommends: 1. No evidence of acute coronary syndrome with normal troponins, EKG without acute change, history of normal coronaries in 2016 and and preliminary echocardiogram showing preserved ejection fraction consistent with prior echocardiogram earlier this year. 2. Nonischemic cardiomyopathy with no evidence of congestive heart failure. Recommend resuming Coreg 3.125 mg twice daily and Entresto 24/26 mg twice daily. 3. Pneumonia, treatment per Dr. Wadsworth 4. No further recommendations from cardiology standpoint. Follow-up in our office in 2 weeks after discharge. Patient will be discharged home today, he is in agreement with this 1. Z-Luis and Omnicef per instructions 2. Follow-up in office in 1 to 2 weeks 3. Follow-up with cardiology in 2 weeks 4. Pulmonology appointment June 23 2 PM Objective Vital signs: Temp Pulse Resp BP Pulse Ox 98.7 F 74 17 112/70 92 L 05/28/19 08:00 05/28/19 08:00 05/28/19 08:00 05/28/19 08:00 05/28/19 08:00 no acute distress - *Routine HEENT Exam Head: Present: normocephalic, atraumatic. Absent: tenderness of temporal artery Eye: Present: EOMI, PERRL, normal accommodation. Absent: periorbital swelling ENT: Present: mucous membranes moist. Absent: sinus tenderness - *Routine Neck Exam Present: full ROM, JVD, trachea midline. Absent: tenderness, tracheal deviation - *Routine Respiratory Exam Present: rhonchi, wheezes. Absent: accessory muscle use - *Routine Cardiovascular Exam Present: RRR - *Routine Abdominal Exam Present: soft, normoactive bowel sounds. Absent: tenderness, firm - *Routine Extremities Exam Present: full ROM, pulses intact. Absent: cyanosis, calf tenderness - Routine Back/Spine/Pelvis Exam Back/Spine: Present: full ROM. Absent: CVA tenderness - *Routine Skin Exam Present: intact, warm. Absent: cyanosis, erythema - *Routine Neurological Exam Present: alert, oriented X3, CN II-XII intact. Absent: pronator drift, altered mental status - Routine Psychiatric Exam Present: normal affect, normal thought process. Absent: auditory hallucinations, visual hallucinations Results - Additional Comments Rounded with Dr. Wadsworth, all orders per Dr. Wadsworth DS: Diagnosis - Discharge Diagnosis (1) CAP (community acquired pneumonia) Status: Acute (2) COPD (chronic obstructive pulmonary disease) Status: Acute (3) Low body mass index (BMI) Status: Acute (4) Tobacco use Status: Acute (5) Herpes zoster ophthalmicus, right eye Status: Acute (6) Neuropathy Status: Acute (7) Nonischemic cardiomyopathy Status: Acute Discharge Plan - Patient Discharge Instructions DIET: continue same diet Patient Instructions: DI for Chronic Obstructive Pulmonary Disease, DI for Hypoxia - Follow up Plan Follow up with: Kota Cifuentes MD [Physician] - 06/23/19 2:00 am Aldo Simmons APRN [Nurse Practitioner] - 2 weeks Anthony Arroyo MD [Staff Physician] - 2 weeks Disposition: Home, Self-Intermediate Medications: Home Medications Medication Instructions Recorded Confirmed Type duloxetine 60 mg capsule,delayed 60 mg PO BID cap 08/19/18 05/27/19 History release carvedilol 3.125 mg tablet 3.125 mg PO BID #60 tab 12/29/18 05/26/19 Rx sacubitril 24 mg-valsartan 26 mg 1 tab PO BID #60 tab 03/09/19 05/26/19 Rx tablet Umeclidinium Brm/Vilanterol Tr 1 each IH DAILY 05/26/19 05/26/19 History [Anoro Ellipta 62.5-25 Mcg INH] Amitriptyline HCl [Elavil 50mg 50 mg PO HS 05/27/19 05/27/19 History tablet] Divalproex Sodium [Depakote ER] 500 mg PO BID 05/27/19 05/27/19 History Azithromycin [Z-Luis 250mg Tab*] 250 mg PO UD DOSE PK #6 tab 05/28/19 Rx Cefdinir [Omnicef 300mg Capsule] 300 mg PO BID 5 Days #10 cap 05/28/19 Rx Prescriptions/Medication Reconciliation: New Cefdinir [Omnicef 300mg Capsule] 300 mg PO BID 5 Days #10 cap Azithromycin [Z-Luis 250mg Tab*] 250 mg PO UD DOSE PK #6 tab Continued duloxetine 60 mg capsule,delayed release 60 mg PO BID cap carvedilol 3.125 mg tablet 3.125 mg PO BID #60 tab sacubitril 24 mg-valsartan 26 mg tablet 1 tab PO BID #60 tab Umeclidinium Brm/Vilanterol Tr [Anoro Ellipta 62.5-25 Mcg INH] 1 each IH DAILY Amitriptyline HCl [Elavil 50mg tablet] 50 mg PO HS Divalproex Sodium [Depakote ER] 500 mg PO BID - Problem Reconciliation Problems Reviewed?: Yes
--- NOTE | 2019-05-28 10:35 | Cardiology Report ---
APPROVED REPORT EXAM: Comprehensive 2D, Doppler, and color-flow Echocardiogram Manager Physical: Koki Moya RDCS Ht: 6 ft 2 in Wt: 126lbs BSA: 1.79 BP: 116/76 mmHg Indications: COPD, Shortness of Breath, CAD, Hypertension/HDD Echo Enhancing Agent Comments: LOW ACCESS SECONDARY TO COPD IMAGES OBTAINED MORE SUB COSTAL 2D Dimensions LVOT 1.91 cm (M/F) 1.5-2.5 M-Mode Dimensions RVDd 2.49 cm (0.9-2.6)LVDd 5.00 cm (3.5-5.7) LVDs 4.12 cm (3.5-5.7)IVSd 0.98 cm (0.6-1.1) PWd 0.88 cm (0.6-1.1)EF (Teich) 36.50% FS 17.60% EDV (Teich) 118.20 mL ESV (Teich) 75.10 mL LV Diastology E/A Ratio 1.02 Mitral Valve MV A Velocity 47.00 (40-130 cm/s) Left Ventricle Left atrium is normal size, left ventricle is normal size, there is no concentric left ventricular hypertrophy, visually estimated ejection fraction 55% with no regional wall motion abnormality. Diastolic parameters are within normal range. Right Ventricle Right atrium and right ventricular normal size and contractility. Aortic Valve Aortic valve is minimally thickened and fibrosed, there is no aortic stenosis aortic insufficiency. Mitral Valve Mitral valve is grossly normal, there is mild mitral regurgitation. Tricuspid Valve Tricuspid valve is grossly normal, there is mild tricuspid regurgitation, tricuspid regurgitation jet close is inadequate for calculation of the right ventricular systolic pressure, Pulmonic Valve Pulmonic valve is poorly visualized. Great Vessels Aortic root is normal size. Pericardium No significant pericardial effusion noted. Conclusion 1. Normal left ventricular size, preserved left ventricular systolic function, visually estimated ejection fraction 55% with no regional wall motion abnormality, diastolic parameters are within normal range. 2. Mild mitral and tricuspid regurgitation. 3. No significant pericardial effusion noted. Electronically signed by : Butch Parks, 05/28/2019 10:34:29
== END 2019-05-28 11:50 | disposition home or self-care (01) ==
LOC: ER 13:36 → 2ND 13:36
PROVIDERS: ADMIT Emergency Medicine; ATTEND Emergency Medicine
CPT/HCPCS: 36415; 71020; 71046; 71250; 80048; 80076; 83605; 84484; 85025; 87040; 87070; 87205; 87275; 87276; 93005; 93306; 94640; 94760; 94761; 96365; 96367; 99285; G0378; J0456

== ENCOUNTER → 2019-07-03 13:33 | Outpatient (CLI) | payer MEDICARE, MEDICAID, SELFPAY ==
[2019-07-03 14:16] LABS: Erythrocyte Sedimentation Rate 57 mm/hr (0-20)
[2019-07-03 14:18] LABS: C-Reactive Protein 4.5 mg/dL (0.0-0.9)
[2019-07-04 11:04] LABS: RA Latex Turbid. 15.7 IU/mL (0.0-13.9)
[2019-07-06 12:08] LABS: Anti-Centromere B Antibodies <0.2 AI (0.0-0.9); Anti-Jo-1 <0.2 AI (0.0-0.9); Anti-Smith Antibody <0.2 AI (0.0-0.9); Antichromatin Antibodies <0.2 AI (0.0-0.9); Antiscleroderma-70 Antibodies <0.2 AI (0.0-0.9); RNP Antibodies <0.2 AI (0.0-0.9); Sjogren's Anti-SS-A <0.2 AI (0.0-0.9); Sjogren's Anti-SS-B <0.2 AI (0.0-0.9)
[2019-07-08 17:34] LABS: Anti-Cyclic Citrullinated Pept 12 units (0-19)
[2019-07-08 17:37] LABS: Anti-DNA (DS) Ab Qn <1 IU/mL (0-9)
== END ==
PROVIDERS: Visit Provider Emergency Medicine
DX: M25.50 Pain in unspecified joint (principal)
CPT/HCPCS: 85651; 86140; 86200; 86225; 86235; 86431

== ENCOUNTER → 2019-10-01 10:28 | Outpatient (CLI) | payer MEDICARE, MEDICAID, SELFPAY ==
[2019-10-01 12:10] LABS: Anion Gap 9.6 mEq/L (5-15); Blood Urea Nitrogen 14 mg/dl (9-20); Calcium 9.6 mg/dl (8.4-10.2); Carbon Dioxide 32 mmol/L (22.0-30.0); Chloride 98 mmol/L (98-107); Estimated Glomerular Filt Rate 115 ml/min (>60); GFR (African American) 139 ML/MIN (>60); Glucose 95 mg/dl (74-100); Potassium 4.6 mmoL/L (3.5-5.1); Sodium 135 mmol/L (136-145)
== END ==
PROVIDERS: Visit Provider Emergency Medicine
DX: Z01.818 Encounter for other preprocedural examination (principal)
CPT/HCPCS: 36415; 80048

== ENCOUNTER → 2019-10-02 10:43 | Outpatient (CLI) | payer MEDICARE, MEDICAID, SELFPAY ==
--- NOTE | 2019-10-02 10:43 | CT_ITS ---
PROCEDURE: CT CHEST WO/W CON CLINCAL INDICATION: 3 mth f/u Follow-up pulmonary nodule, smoker, follow-up pneumonia COMPARISON: CT CHEST WO CON from 05/27/2019 TECHNIQUE: IV Contrast: 75ml Optiray 350 Axial images obtained with sagittal and coronal reformats. All CT scans at the facility use one or more dose reduction, viz: automated exposure control, ma/kV adjustment per patient size (including targeted exams where dose is matched to indication, i.e. head), or iterative reconstruction technique. FINDINGS: HEART AND MEDIASTINAL STRUCTURES: No mediastinal or hilar mass or adenopathy. Unenhanced images show mild coronary artery calcification. No aortic aneurysm, dissection, or central pulmonary embolus. There is mild thickening of the esophagus throughout which may be seen with esophagitis. LUNGS AND PLEURAL SPACES: COPD with centrilobular emphysema. Mild bronchial thickening. The previously noted scattered parenchymal opacities are no longer apparent consistent with improvement in pneumonia. The irregular parenchymal opacity in the left lung base is no longer apparent consistent with resolved inflammatory/infectious changes. No suspicious nodules are evident. The stone there is opacification of a small segment of the posterior basilar segmental bronchus on the left as seen on image 72 series 5 which could be due to some underlying mucous versus partial volume averaging artifact. BONY STRUCTURES: No acute bony abnormalities apparent. UPPER ABDOMEN: Unremarkable. ADDITIONAL FINDINGS: No other significant abnormalities. IMPRESSION: 1. Interval resolution of previously described abnormalities including multiple irregular areas of opacification/pneumonia as well as the irregular parenchymal opacity in the left lung base. 2. There is a small area of bronchial opacification in the posterior basilar segment of left lower lobe and could be due to small amount of mucus or partial volume averaging artifact. Consider 3 month follow-up to confirm resolution 3. COPD/centrilobular emphysema Dictated by: Kyle Lopez MD 10/03/2019 07:23 Electronically signed by Kyle Lopez MD in [facility] 10/03/2019 07:23
== END ==
PROVIDERS: PCP Emergency Medicine; Visit Provider Emergency Medicine
DX: J44.9 Chronic obstructive pulmonary disease, unspecified (principal); R91.1 Solitary pulmonary nodule
CPT/HCPCS: 71270; Q9967

== ENCOUNTER → 2020-01-19 12:54 | Outpatient (CLI) | payer MEDICARE, MEDICAID, SELFPAY ==
--- NOTE | 2020-01-19 12:59 | CT_ITS ---
PROCEDURE: CT CHEST WO CON CLINICAL INDICATION: 3 mth f/u Follow-up pulmonary nodule, smoker, follow-up pneumonia COMPARISON: CT CT CHEST WO/W CON from 10/02/2019 TECHNIQUE: Axial images obtained with sagittal and coronal reformats. All CT scans at the facility use one or more dose reduction, viz: automated exposure control, ma/kV adjustment per patient size (including targeted exams where dose is matched to indication, i.e. head), or iterative reconstruction technique. FINDINGS: HEART AND MEDIASTINAL STRUCTURES: There is mild generalized thickening of the esophagus nonspecific. LUNGS AND PLEURAL SPACES: COPD with centrilobular and paraseptal emphysema with scattered areas of scarring. No lobar consolidation or collapse. No suspicious nodules. There is evidence of old granulomatous disease. There does remain some increased density within the posterior basilar segmental bronchus. The bronchus appears somewhat less distended compared to the previous exam. This density could be related to some bronchial secretions, bronchial wall thickening, or very small endobronchial lesion. The decrease in size however would argue against the latter. No new abnormalities are evident. No acute bony BONY STRUCTURES: No acute bony anomalies UPPER ABDOMEN: Mild thickening of the distal esophagus ADDITIONAL FINDINGS: No other significant abnormalities. IMPRESSION: COPD with centrilobular and paraseptal emphysema. Previously area of bronchial opacification in the left lower lobe is once again noted but somewhat less prominent compared to the previous exam. Bronchoscopy would be the ultimate modality to evaluate this region. If that is not performed then, would suggest follow-up exam in 6 months. Dictated b Kyle Lopez MD 01/20/2020 11:53 Kyle Lopez MD in [facility] 01/20/2020 11:53
== END ==
PROVIDERS: PCP Emergency Medicine; Visit Provider Emergency Medicine
DX: R91.1 Solitary pulmonary nodule (principal)
CPT/HCPCS: 71250

== ENCOUNTER 2020-02-09 11:00 | Outpatient (RCR) | payer MEDICARE, MEDICAID, SELFPAY | END 2020-02-09 12:00 | disposition home or self-care (01) | LOC: PT 11:00 | PROVIDERS: PCP Emergency Medicine; Visit Provider Physical Medicine & Rehabilitation | DX: M54.17 Radiculopathy, lumbosacral region (principal) | CPT/HCPCS: 97010; 97014; 97110; 97163; G0283 ==

== ENCOUNTER → 2020-02-22 10:56 | Outpatient (CLI) | payer MEDICARE, MEDICAID, SELFPAY ==
[2020-02-22 12:12] LABS: Coronavirus 19 IgG Antibody Negative (Negative); Coronavirus 19 IgM Antibody Negative (Negative)
== END ==
PROVIDERS: Visit Provider Internal Medicine Pulmonary Disease
DX: Z01.818 Encounter for other preprocedural examination (principal); R91.1 Solitary pulmonary nodule
CPT/HCPCS: 36415; 86328

== ENCOUNTER 2020-02-24 07:37 | Day surgery (SDC) | payer MEDICARE, MEDICAID, SELFPAY ==
[2020-02-17 13:00] VITALS: BMI 16.9
[2020-02-24] VITALS (14 sets, daily range): BP systolic 107–145; BP diastolic 52–81; PULSE 58–106; RESP 18; TEMP 36.6–36.7; O2SAT 93–100
--- NOTE | 2020-02-24 10:29 | SUR.PHASEII ---
Pt rece'd into post op post Bronchoscopy. Pt snoring loudly but did awaken to name for short period of time. Coughing occasionally and sounds very moist and loose. Attempted to suction but unable to get any secretions. VSS. oxygen sauration 98% on 3 L
--- NOTE | 2020-02-24 10:40 | SUR.PHASEII ---
Dr. Marceol spoke with Pt's dtr, Dinorah, by phone and is not at bedside talking to pt about results of Bronchoscopy. Receiving breathing treatment ordered by Dr. Marcelo by his physician assistant surgery, Rox. Pt tolerating well, only very drowsy at this time. VSS.
--- NOTE | 2020-02-24 11:51 | P.PCN_ITS ---
- Procedure: Date: 02/24/20 Patient Date of :: 1960 Procedure Performed:: Bronchoscopy for airway examination and bronchoalveolar lavage Indications:: Abnormal CT scan with possible endobronchial lesion in the left lower lobe bronchi Performing Provider:: Cait Marcelo MD Referring Provider:: None Sedation:: Conscious sedation. Patient in total received 5 mg of Versed and 150 mcg of fentanyl. Patient also received 30 cc of 1% lidocaine along with Urojet jelly for topical sedation to facilitate bronchoscopy Procedure:: Clean diagnostic bronchoscopy was introduced through the left nares and advanced. Upper airway has significant cobblestoning appearance and inflammation noted. Bronchoscopy was advanced through the vocal cords and airw ays on right and left lungs were examined up to the subsegmental bronchi. Meticulous airway examination was performed up to the reach of the diagnostic bronchoscopy and no obvious endobronchial lesions were noted. BAL was performed in the left lower lobe posterior segment. Total of 80 cc of normal saline was instilled with return of 20 cc. BAL fluid was sent for cytopathology along with bacterial, AFB and fungal staining with cultures. Findings:: Normal airway examination. No endobronchial lesions found Specimens:: Left lower lobe bronchoalveolar lavage Recommendations:: Follow in the clinic as previously scheduled Complications:: None Estimated blood obtained (mL): 0
== END 2020-02-24 11:13 | disposition home or self-care (01) ==
PROVIDERS: PCP Emergency Medicine; Visit Provider Internal Medicine Pulmonary Disease
DX: R91.8 Other nonspecific abnormal finding of lung field (principal); J44.9 Chronic obstructive pulmonary disease, unspecified; Z72.0 Tobacco use; Z88.8 Allergy status to other drugs, medicaments and biological substances; Z79.899 Other long term (current) drug therapy; I10 Essential (primary) hypertension; M19.90 Unspecified osteoarthritis, unspecified site; Z82.49 Family history of ischemic heart disease and other diseases of the circulatory system; Z82.5 Family history of asthma and other chronic lower respiratory diseases; Z86.19 Personal history of other infectious and parasitic diseases; G62.9 Polyneuropathy, unspecified
CPT/HCPCS: 31624; 87070; 87077; 87102; 87116; 87186; 87205; 87206; 88112; 99152; 99153

== ENCOUNTER → 2020-04-05 14:23 | Outpatient (POV) | payer MEDICARE, MEDICAID, SELFPAY | PROVIDERS: Visit Provider Dermatology | DX: Z00.00 Encounter for general adult medical examination without abnormal findings (principal) ==

== ENCOUNTER 2020-04-28 13:05 | Emergency (ER) | payer MEDICARE, MEDICAID, SELFPAY ==
[2020-04-28 13:06] VITALS: BP 127/68; PULSE 82; RESP 20; TEMP 36.6; O2SAT 98; BMI 16.4
--- NOTE | 2020-04-28 13:27 | HMH.EDWEAK ---
ED Disposition Clinical Impression: Left against medical advice, COPD exacerbation Disposition: Left Against Medical Advice Condition on Discharge: Patient was showing improvement but left prior to discharge Referrals: Rasheed Wadsworth MD [Primary Care Provider] - - Critical Care Critical Care Time: No Attestation: On , the high probability of a clinically significant, sudden or life threatening deterioration of the following system(s) required my full and direct attention, intervention and personal management. The time I documented below is in addition to time spent performing reported procedures but includes the following listed in this critical care notation. Medical Decision Making - Marck Inquiry Pt receiving controlled substance: No Vital Signs: 04/28/20 13:06 04/28/20 14:06 04/28/20 15:16 Temperature 98 F Temperature Source Oral Pulse Rate Pulse Rate [Radial] 82 71 60 Respiratory Rate 20 20 18 Blood Pressure Blood Pressure [Right Arm] 127/68 105/69 L 108/67 L Blood Pressure Mean [Right Arm] 87 81 80 Blood Pressure Source [Right Arm] Automatic Cuff Automatic Cuff Blood Pressure Position Blood Pressure Position [Right Arm] Sitting Sitting Sitting 02 Sat by Pulse Oximetry 98 94 L 93 L Oxygen Delivery Method Room Air Room Air 04/28/20 16:30 04/28/20 16:59 Temperature 98 F Temperature Source Oral Pulse Rate 78 Pulse Rate [Radial] 61 Respiratory Rate 20 16 Blood Pressure 152/74 H Blood Pressure [Right Arm] 118/70 Blood Pressure Mean [Right Arm] 86 Blood Pressure Source [Right Arm] Automatic Cuff Blood Pressure Position Sitting Blood Pressure Position [Right Arm] Sitting 02 Sat by Pulse Oximetry 93 L Oxygen Delivery Method Room Air Room Air - Lab Data Lab Results 04/28/20 14:10: WBC 12.9 H, RBC 4.41 L, Hgb 14.7, Hct 42.1, MCV 95.7 H, MCH 33.3 H, MCHC 34.8, RDW 13.7, Plt Count 448 H, MPV 7.4, Neut % (Auto) 79.6, Lymph % (Auto) 12.4, [place] % (Auto) 7.3, Eos % (Auto) 0.3, Baso % (Auto) 0.4, Neut # (Auto) 10.3 H, Lymph # (Auto) 1.6, [place] # (Auto) 0.9, Eos # (Auto) 0.0, Baso # (Auto) 0.1 04/28/20 14:10: Sodium 135 L, Potassium 4.3, Chloride 100, Carbon Dioxide 29, Anion Gap 10.3, BUN 16, Creatinine 0.70, Estimated Creat Clear 64, Estimated GFR 115, Est GFR ( Amer) 139, Glucose 121 H, Calcium 9.3, Total Bilirubin 0.7, AST 36, ALT 37, Alkaline Phosphatase 160 H, Troponin I < 0.01, Total Protein 7.0, Albumin 3.8, Globulin 3.2, Albumin/Globulin Ratio 1.2 04/28/20 14:10: Lactate 0.8 Result diagrams: 04/28/20 14:10 04/28/20 14:10 Orders (Tests/Meds): ORDERS Category Date Time Status Troponin I Q3H Lab 04/28/20 20:00 Ordered Blood Culture Stat Micro 04/28/20 14:10 Received - Radiology Data #1 Image(s): Chest Image Reviewed: Yes I reviewed the patient's radiology image Preliminary Findings: Abnormal Hyperinflated with increased vascular markings mildly. No focal infiltrate - ECG Data Tracing #1 ECG normal with no acute: arrhythmias, ischemia, conduction abnormalities, chamber hypertrophy Normal Sinus Rhythm: Yes Medical Decision Narrative: 59-year-old male who presents with generalized weakness and shortness of breath. Patient is overall well-appearing nontoxic but appears slightly fatigued. He has respiratory difficulty and generalized wheezing and diminished airflow on exam. Differential includes COPD exacerbation, pneumonia, pneumothorax, and others. Patient is given Solu-Medrol 125 mg IV and duo nebs. Laboratory data is relatively unremarkable and chest x-ray demonstrates hyperinflation. Prior to being officially discharged the patient felt much better and eloped from the emergency department. Last reevaluation the patient was doing much better and plan was to discharge the patient if that continued. Weakness HPI - General Chief complaint: Weakness Stated complaint: Weakness Time Seen by Provider: 04/28/20 13:20 Mode of Arriva
--- NOTE | 2020-04-28 13:53 | XR_ITS ---
PROCEDURE: XR CHEST 2V CLINICAL HISTORY: soa Shortness of air COMPARISON: CR CXR CHEST(2 VIEWS-NOT PORTABLE) from 06/08/2017 CR CXR2V XR chest 2V from 06/04/2018 CR XR CHEST 2V from 05/26/[address] CHEST WO CON from 01/19/2020 FINDINGS: The cardiomediastinal silhouette and pulmonary vascularity are within normal limits. COPD with prominence of the interstitium. No lobar consolidation or collapse. There is hyperinflation There is an old fracture of the right 6th rib and old fracture also of the left 6 and 8th ribs. IMPRESSION: COPD. No change with no acute finding Dictated by: Kyle Lopez MD 04/28/2020 15:57 Kyle Lopez MD in [place] 04/28/2020 15:57
--- NOTE | 2020-04-28 13:57 | ECG_ITS ---
APPROVED REPORT Exam: Resting ECG HR:61 bpm ECG Measurements Heart Rate 61 AXES GA 126 P 83 QRSd 76 QRS 87 QT 434 T 76 QTc 436 Conclusion Sinus rhythm with premature supraventricular complexes Otherwise normal ECG Electronically signed by : Alli Fitzgerald, 04/30/2020 06:57:39
[2020-04-28 14:06] VITALS: BP 105/69; PULSE 71; RESP 20; O2SAT 94
[2020-04-28 14:34] LABS: Basophils # 0.1 K/mm3 (0-0.2); Basophils % 0.4 % (0.1-2.0); Chloride 100 mmol/L (98-107); Eosinophils % 0.3 % (0.1-12.0); Hematocrit 42.1 % (42.0-52.0); Hemoglobin 14.7 g/dL (14.1-18.0); Lymphocytes # 1.6 K/mm3 (0.7-4.5); Lymphocytes % 12.4 % (10-50); Mean Corpuscular HGB Conc 34.8 g/dL (31.8-35.4); Mean Corpuscular Hemoglobin 33.3 pg (27.0-31.2); Mean Corpuscular Volume 95.7 fl (80-94); Mean Platelet Volume 7.4 fl (7.4-10.4); Monocytes # 0.9 K/mm3 (0.1-1.0); Monocytes % 7.3 % (1.7-9.3); Neutrophils # 10.3 K/mm3 (1.8-7.8); Neutrophils % 79.6 % (37.0-80.0); Platelet Count 448 K/mm3 (142-424); Red Blood Count 4.41 M/mm3 (4.60-6.20); Red Cell Distribution Width 13.7 % (11.5-17.5); Sodium 135 mmol/L (136-145); White Blood Count 12.9 K/mm3 (4.8-10.8)
[2020-04-28 14:35] LABS: Potassium 4.3 mmoL/L (3.5-5.1)
[2020-04-28 14:37] LABS: Alanine Aminotransferase 37 U/L (12-78); Alkaline Phosphatase 160 U/L (38-126); Anion Gap 10.3 mEq/L (5-15); Aspartate Amino Transferase 36 U/L (17-59); Bilirubin,Total 0.7 mg/dl (0.2-1.3); Blood Urea Nitrogen 16 mg/dl (9-20); Carbon Dioxide 29 mmol/L (22.0-30.0); Creatinine Clearance Estimated 64 mL/min (50-200); Estimated Glomerular Filt Rate 115 ml/min (>60); GFR (African American) 139 ML/MIN (>60)
[2020-04-28 14:38] LABS: Albumin Level 3.8 g/dl (3.5-5.0); Albumin/Globulin Ratio 1.2 (1.1-1.8); Calcium 9.3 mg/dl (8.4-10.2); Globulin 3.2 g/dL (1.3-3.2); Glucose 121 mg/dl (74-100)
[2020-04-28 14:42] LABS: Lactic Acid 0.8 mmol/L (0.7-2.1)
[2020-04-28 14:52] LABS: Troponin I < 0.01 ng/ml (0.00-0.034)
[2020-04-28 15:16] VITALS: BP 108/67; PULSE 60; RESP 18; O2SAT 93
[2020-04-28 16:30] VITALS: BP 118/70; PULSE 61; RESP 20; O2SAT 93
[2020-04-28 16:59] VITALS: BP 152/74; PULSE 78; RESP 16; TEMP 36.6; O2SAT 98
== END 2020-04-28 17:04 | disposition left against medical advice (07) ==
LOC: ER 13:51
PROVIDERS: Emergency Provider Student in an Organized Health Care Education/Training Program; PCP Emergency Medicine
DX: J44.1 Chronic obstructive pulmonary disease with (acute) exacerbation (principal); I10 Essential (primary) hypertension; F17.210 Nicotine dependence, cigarettes, uncomplicated; Z88.8 Allergy status to other drugs, medicaments and biological substances
CPT/HCPCS: 71046; 80053; 83605; 84484; 85025; 87040; 93005; 99283

== ENCOUNTER → 2020-05-10 15:17 | Outpatient (POV) | payer MEDICARE, MEDICAID, SELFPAY | PROVIDERS: Visit Provider Dermatology | DX: Z00.00 Encounter for general adult medical examination without abnormal findings (principal) ==

== ENCOUNTER → 2020-05-16 13:21 | Outpatient (POV) | payer MEDICARE, MEDICAID, SELFPAY ==
[2020-05-16 13:53] VITALS: BP 125/85; PULSE 78; RESP 18; TEMP 36.6; O2SAT 98; BMI 26.4
--- NOTE | 2020-05-16 14:23 | HMH.PMCON ---
Assessment and Plan (1) Postherpetic neuralgia Status: Chronic Category: Medical Code(s): B02.29 - Other postherpetic nervous system involvement - Assessment and plan all Dx Assessment and Plan for all problems:: We will schedule the patient for peripheral nerve block of the right supratrochlear nerve and right forehead and scalp region. Patient is not a narcotic candidate at our clinic due to his previous inappropriate drug screen. Patient is receiving his medication at this time from [facility]. Follow-up with the patient after his injection reassess his symptoms at that time he has been instructed to call the office if he has any issues prior to his next appointment. Dr. Murcia has reviewed this note and agrees with this plan of care. This note was dictated using voice recognition software and may contain errors or omissions HPI - Data of Consult Consult date: 05/16/20 Requesting Physician: Gerda Flores APRN Primary Care Provider: Lynda Anderson MD - Consult Narrative Reason for consult: Postherpetic neuralgia History of present illness: Mr. Turk is a 59 year old male who presents today for consultation. Patient was seen in our clinic previously and discharged due to an inappropriate drug screen. Patient is now going to [facility] and receiving oxycodone. Patient presents today for consultation regards to his postherpetic neuralgia affecting the right side of his burnette face around his eye and his scalp. Patient has constant burning numbness tingling in this area. Patient has been treated by an digital marketing analyst. He rates his pain today a 10 out of 10 CC: Gerda Flores APRN [facility] History I have reviewed the patient's past medical history: Yes Medical History: Reports:: Congestive Heart Failure, Chronic Obstructive Pulmonary Disease (COPD), Hypertension Denies:: Cancer, Diabetes Mellitus Type 1, Diabetes Mellitus Type 2, Internal Pacemaker, MRSA, Seizures *Have you ever received a pneumonia vaccine?: Yes *Have you received a flu vaccine this season?: Yes Other Medical History: Reports: Arthritis, Other Other Surgeries: Yes: Other. No: Pacemaker Amputation: No Fractures: Yes - *Social History Smoking Status: Current every day smoker Tobacco Type: cigarettes # Packs/Day (cigarettes): 1 Alcohol Intake: never Alcohol Intake Frequency:: a few times a month Substance Use Type: denies use *Occupational Status:: other Housing: house Household Members: other *Travel in the last 8 weeks: None Family Hx:: Unable to obtain Review of Systems - Review of Systems ROS General: no recent weight change, no fever, no sleep disturbances Respiratory: no cough, no shortness of air, no recurring pulmonary infections Cardiovascular/Peripheral Vascular: No chest pain, No palpitations, no edema, no shortness of breath. Gastrointestinal: no new onset incontinence, normal bowel movements reported Genitourinary: no new onset incontinence Musculoskeletal: Right-sided facial pain Psychiatric: normal mood/ affect Neurological: [denies new onset weakness in extremities], [denies new onset balance issues] Meds Home Medications Medication Instructions Recorded Confirmed Type atorvastatin 10 mg tablet 10 mg PO QHS tab 03/03/20 04/28/20 History gabapentin 800 mg tablet 800 mg PO TID tab 03/03/20 04/28/20 History oxycodone 15 mg tablet 15 mg PO TID PRN tab 03/03/20 04/28/20 History sacubitril 24 mg-valsartan 26 mg 1 tab PO BID #60 tab 03/25/20 04/28/20 Rx tablet carvedilol 3.125 mg tablet 3.125 mg PO BID #60 tab 03/28/20 04/28/20 Rx Tizanidine HCl See Rx Instructions .ROUTE .COMPLEX 04/28/20 04/28/20 History Umeclidinium Brm/Vilanterol Tr See Rx Instructions .ROUTE .COMPLEX 04/28/20 04/28/20 History [Anoro Ellipta 62.5-25 Mcg INH] predniSONE [Deltasone 20mg 20 mg PO BID 04/28/20 04/28/20 History tablet] duloxetine 60 mg capsule,delayed 60 mg PO BID 90 Days #180 cap 04/29/20
== END ==
PROVIDERS: PCP Dermatology; Visit Provider Clinical Nurse Specialist Family Health
DX: B02.29 Other postherpetic nervous system involvement (principal)
CPT/HCPCS: 99202

== ENCOUNTER 2020-05-27 10:22 | Day surgery (SDC) | payer MEDICARE, MEDICAID, SELFPAY ==
[2020-05-27 10:57] VITALS: BP 114/72; PULSE 65; RESP 18; TEMP -12.4; TEMP 9.6; O2SAT 98; BMI 17.7
[2020-05-27 12:02] VITALS: BP 138/88; PULSE 79; RESP 18
[2020-05-27 12:04] VITALS: BP 125/74; PULSE 84; RESP 18; O2SAT 98
--- NOTE | 2020-05-27 12:14 | HMH.PMPROC ---
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 He has now developed postherpetic polyneuropathy and postherpetic neuralgia in the forward region right supraorbital region. We will do a peripheral nerve block today to help him with his pain symptoms. Procedure Details:: Peripheral nerve block Informed consent was obtained and the risk and benefits of the procedure were explained to the patient. Patient was taken to the procedure room. The right forehead and supraorbital region were prepped using ChloraPrep. A 25-gauge needle was inserted and advanced subcutaneously. We deposited 10 mL bupivacaine 0.25% and Depo-Medrol 40 mg subcutaneous to the previous rash in the right supraorbital region and right forehead. Patient tolerated the procedure well with no complications. Plan and Disposition:: We will follow-up with him in 2 weeks. Will reevaluate symptoms at that time. He may be a candidate for repeat injection in the future.
[2020-05-27 12:15] VITALS: BP 105/58; PULSE 59; RESP 18; O2SAT 98
== END 2020-05-27 12:16 | disposition home or self-care (01) ==
LOC: SC.PAINP 10:23
PROVIDERS: PCP Emergency Medicine; Visit Provider Anesthesiology
DX: B02.23 Postherpetic polyneuropathy (principal); I11.0 Hypertensive heart disease with heart failure; E78.5 Hyperlipidemia, unspecified; J44.9 Chronic obstructive pulmonary disease, unspecified; Z72.0 Tobacco use; I50.9 Heart failure, unspecified; F41.9 Anxiety disorder, unspecified
CPT/HCPCS: 64450; J1040

== ENCOUNTER → 2020-06-23 09:42 | Outpatient (POV) | payer MEDICARE, MEDICAID, SELFPAY ==
[2020-06-23 09:58] VITALS: BP 125/85; PULSE 85; RESP 18; TEMP 36.8; O2SAT 98; BMI 17.3
--- NOTE | 2020-06-23 12:47 | HMH.PAINSOAP ---
[facility] Pain Management SOAP Note Subjective:: Patient is a 59-year-old white male who had shingles rash approximately a year and a half ago. He has now developed postherpetic and polyneuropathy and postherpetic neuralgia in the forward region of his right supraorbital region. Patient is following up after peripheral nerve block he got no relief he rates his pain an 8 out of 10 he states he has constant pain and itching. He is on oxycodone and gabapentin he states that this does not relieve his pain. He is also on Cymbalta. Patient is tried compounding cream [id number] creams. Patient has not gotten any relief from any medication regimen ROS General: no recent weight change, no fever, no sleep disturbances Respiratory: no cough, no shortness of air, no recurring pulmonary infections Cardiovascular/Peripheral Vascular: No chest pain, No palpitations, no edema, no shortness of breath. Gastrointestinal: no new onset incontinence, normal bowel movements reported Genitourinary: no new onset incontinence Musculoskeletal: Right facial pain Psychiatric: normal mood/ affect, Neurological: [denies new onset weakness in extremities], [denies new onset balance issues] Objective:: Physical Exam General: Alert and oriented x3, no acute distress, pleasant and cooperative, [on room air] Lungs: Resps E/U, Symmetrical chest expansion, Eyes: PERRL Musculoskeletal: Extreme tenderness to right supraorbital region on palpation, deep tendon reflexes normal, strength in upper and lower extremities [5/5], antalgic gait noted Neurological: speech clear, continuous improvement consultant equal, no gross sensory deficits Assessment:: 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 I also recommended him to try capsaicin cream. I will follow-up with him after he sees neurology. Dr. Murcia has reviewed this note and agrees with this plan of care. This note was dictated using voice recognition software and may contain errors or omissions [facility] History I have reviewed the patient's past medical history: Yes Medical History: Reports:: Congestive Heart Failure, Chronic Obstructive Pulmonary Disease (COPD), Hyperlipidemia, Hypertension Denies:: Cancer, Diabetes Mellitus Type 1, Diabetes Mellitus Type 2, Internal Pacemaker, MRSA, Seizures *Have you ever received a pneumonia vaccine?: Yes *Have you received a flu vaccine this season?: Yes Other Medical History: Reports: Arthritis, Other. Denies: Blood Transfusion Reaction Other Surgeries: Yes: Other. No: Pacemaker Amputation: No Fractures: Yes - *Social History Smoking Status: Current every day smoker Tobacco Type: cigarettes # Packs/Day (cigarettes): 2 Alcohol Intake: never Alcohol Intake Frequency:: a few times a month Substance Use Type: denies use *Occupational Status:: other Housing: house Household Members: other *Travel in the last 8 weeks: None Family Hx:: Unable to obtain
== END ==
PROVIDERS: PCP Emergency Medicine; Visit Provider Clinical Nurse Specialist Family Health
DX: B02.23 Postherpetic polyneuropathy
CPT/HCPCS: 99212; G0463

== ENCOUNTER → 2020-07-13 13:16 | Outpatient (CLI) | payer MEDICARE, MEDICAID, SELFPAY ==
--- NOTE | 2020-07-13 13:16 | MR_ITS ---
PROCEDURE: MR HEAD/BRAIN WO CON Referring Doctor: Carmen Alonso Patient Age:59Y CLINICAL INDICATION: severe headache Shingles 2 years ago. Currently blurred vision COMPARISON: No exams were available for comparison TECHNIQUE: FINDINGS: Normal anatomy.. No mass lesion. No acute findings; no subdural collection Cranial cervical junction intact. Sella and pituitary unremarkable on this survey study. The ventricles and basal cisterns appear satisfactory.Suggestion of minor diffuse cerebral atrophy. Diffusion images reveal no acute or recent infarct.. No territorial infarct evident FLAIR images in the axial and coronal plane show no prominent findings the only suggestion of a tiny high signal focus at the right frontal region axial FLAIR image 17 coronal a.. Unimpressive but noted. Also suggestion of a barely appreciable tiny high signal white matter focus on coronal image 21 above the atria of left lateral ventricle Posterior fossa, cerebellum unremarkable along with normal appearing brainstem. There is some minimal mucosal thickening and mastoid air cells at right mastoid tip but unimpressive but noted but middle ear clear, IAC's unremarkable. Symmetric but CP angles clear.. Normal flow void at CP angles. Region of [id number] grossly unremarkable Orbits-no orbital mass or lesion. The globes appear satisfactory. Optic nerves with symmetrical signal. As stated the suprasellar region optic radiations occipital lobes of unremarkable At forehead-There is a flat dome-shaped appearing structure in the subcutaneous tissues overlying the frontal bone (sagittal image 15, the axial slice 16). This measures just less than 2 cm at its bulges is outward 4.5 mm.-most likely this is a sebaceous cyst type structure or possible lipoma variant given with well-defined margins and high signal on T1, fat weighted images. However does have some residual signal on T2 as well and thus a small focal hematoma considered but less likely. The cortex of the frontal bone and frontal sinuses appear clear beneath this area.. There is some borderline mucosal thickening at the ethmoid air cells. The frontal and sphenoid sinuses are clear. Mild engorgement of nasal turbinates bilaterally with deviation of nasal septum to the right noted. There is suggestionpossible mild spinal stenosis at C3/4 on the very most inferior part of the sagittal image but there can be some field distortion here which may exaggerate this appearance image IMPRESSION: 1..No acute intracranial findings. No mass lesion. No territorial infarct. No subdural collections. Normal intracranial anatomy 2..Only note tiny single subtle high-signal white matter focus at right frontal lobe;. Also with suggestion another very subtle tiny high-signal white matter focus above the atria of left lateral ventricle. The these very unimpressive but noted for completeness 3... No orbital pathology. No abnormalities along the optic pathways or occipital lobes. Appreciate no signal abnormalities in optic nerves . 4... Incidental note flat dome like area in the midline forehead, scalp/SQ tissues overlying the intact skull beneath it. . Suspect most likely reflects sebaceous cyst like process; less likely small lipoma variant/hemorrhagic elements. .. Would benefit from clinical palpation and follow-up. 5..Other minor observations: .. Question/Suspect developing spinal stenosis C3/4 . Borderline mucosal thickening anterior ethmoid air cells; only minor mucosal thickening right mastoid tip air cells Dictated by: Rashi García MD 07/14/2020 11:39 Rashi García MD in [place] 07/14/2020 11:39
== END ==
PROVIDERS: PCP Emergency Medicine; Visit Provider Specialist
DX: R51.9 Headache, unspecified (principal)
CPT/HCPCS: 70551

== ENCOUNTER 2020-08-18 14:53 | Emergency (ER) | payer MEDICARE, MEDICAID, SELFPAY ==
[2020-08-18 14:54] VITALS: BP 114/68; PULSE 74; RESP 20; TEMP 36.6; O2SAT 96; BMI 17.2
--- NOTE | 2020-08-18 15:05 | XR_ITS ---
PROCEDURE: XR CHEST 2V CLINICAL HISTORY: PAIN Left-sided chest pain COMPARISON: CR CXR2V XR chest 2V from 06/04/2018 CR XR CHEST 2V from 05/26/[address] CHEST WO CON from 01/19/2020 CR XR CHEST 2V from 04/28/2020 FINDINGS: The cardiomediastinal silhouette and pulmonary vascularity are within normal limits. COPD. No lobar consolidation or collapse. There old bilateral rib fractures. Bone plate is present along the lower cervical spine. No acute bony abnormalities. IMPRESSION: COPD with old bilateral rib fractures Dictated by: Kyle Lopez MD 08/18/2020 17:37 Kyle Lopez MD in [place] 08/18/2020 17:37
[2020-08-18 15:16] VITALS: BP 115/64; PULSE 69; O2SAT 95
[2020-08-18 15:31] LABS: Basophils % 0.4 % (0.1-2.0); Eosinophils # 0.2 K/mm3 (0.0-0.4); Eosinophils % 2.4 % (0.1-12.0); Hematocrit 40.8 % (42.0-52.0); Hemoglobin 13.5 g/dL (14.1-18.0); Lymphocytes # 2.1 K/mm3 (0.7-4.5); Lymphocytes % 20.5 % (10-50); Mean Corpuscular HGB Conc 33.2 g/dL (31.8-35.4); Mean Corpuscular Volume 99.5 fl (80-94); Mean Platelet Volume 7.5 fl (7.4-10.4); Monocytes # 0.7 K/mm3 (0.1-1.0); Monocytes % 6.8 % (1.7-9.3); Neutrophils % 69.9 % (37.0-80.0); Platelet Count 344 K/mm3 (142-424); Red Cell Distribution Width 13.6 % (11.5-17.5)
[2020-08-18 15:34] LABS: Chloride 105 mmol/L (98-107); Potassium 4.1 mmoL/L (3.5-5.1); Sodium 137 mmol/L (136-145)
[2020-08-18 15:37] LABS: Alanine Aminotransferase 18 U/L (12-78); Albumin Level 3.9 g/dl (3.5-5.0); Albumin/Globulin Ratio 1.3 (1.1-1.8); Alkaline Phosphatase 99 U/L (38-126); Anion Gap 7.1 mEq/L (5-15); Aspartate Amino Transferase 25 U/L (17-59); Bilirubin,Total 0.5 mg/dl (0.2-1.3); Blood Urea Nitrogen 12 mg/dl (9-20); Carbon Dioxide 29 mmol/L (22.0-30.0); Creatinine Clearance Estimated 66 mL/min (50-200); Estimated Glomerular Filt Rate 114 ml/min (>60); GFR (African American) 138 ML/MIN (>60); Globulin 3.1 g/dL (1.3-3.2)
[2020-08-18 15:38] LABS: Calcium 9.4 mg/dl (8.4-10.2); Glucose 123 mg/dl (74-100)
--- NOTE | 2020-08-18 15:45 | HMH.EDGENADL ---
ED Disposition Clinical Impression: Atypical pneumonia Disposition: Home, Self-Care Condition on Discharge: Good Instructions: DI for Pneumonia -- Adult Prescriptions: Doxycycline Hyclate [Doxycycline 100mg Capsule] 100 mg PO Q12 10 Days #20 cap Transmission Status: Pending to [facility] Referrals: Rasheed Wadsworth MD [Primary Care Provider] - - Critical Care Critical Care Time: No Attestation: On 08/18/20, the high probability of a clinically significant, sudden or life threatening deterioration of the following system(s) required my full and direct attention, intervention and personal management. The time I documented below is in addition to time spent performing reported procedures but includes the following listed in this critical care notation. Medical Decision Making - Medical Records Medical records reviewed: Yes: I reviewed the patient's medical records. - Marck Inquiry Pt receiving controlled substance: Yes Marck was queried for this patient: No Reason not queried -: Marck login issues Risks and benefits of using a controlled substance: were discussed with pt by me Vital Signs: 08/18/20 14:54 08/18/20 15:16 08/18/20 15:54 Temperature 98 F Temperature Source Oral Pulse Rate [Radial] 74 69 65 Respiratory Rate 20 Blood Pressure [Right Arm] 114/68 115/64 106/68 L Blood Pressure Mean [Right Arm] 83 81 80 Blood Pressure Source [Right Arm] Automatic Cuff Automatic Cuff Blood Pressure Position [Right Arm] Sitting Sitting Sitting 02 Sat by Pulse Oximetry 96 95 94 L Oxygen Delivery Method Room Air Room Air Room Air - Lab Data Lab Results 08/18/20 15:22: WBC 10.0, RBC 4.10 L, Hgb 13.5 L, Hct 40.8 L, MCV 99.5 H, MCH 33.0 H, MCHC 33.2, RDW 13.6, Plt Count 344, MPV 7.5, Neut % (Auto) 69.9, Lymph % (Auto) 20.5, [place] % (Auto) 6.8, Eos % (Auto) 2.4, Baso % (Auto) 0.4, Neut # (Auto) 7.0, Lymph # (Auto) 2.1, [place] # (Auto) 0.7, Eos # (Auto) 0.2, Baso # (Auto) 0.0 08/18/20 15:22: Sodium 137, Potassium 4.1, Chloride 105, Carbon Dioxide 29, Anion Gap 7.1, BUN 12, Creatinine 0.70, Estimated Creat Clear 66, Estimated GFR 114, Est GFR ( Amer) 138, Glucose 123 H, Calcium 9.4, Total Bilirubin 0.5, AST 25, ALT 18, Alkaline Phosphatase 99, Troponin I < 0.01, Total Protein 7.0, Albumin 3.9, Globulin 3.1, Albumin/Globulin Ratio 1.3 Result diagrams: 08/18/20 15:22 08/18/20 15:22 Orders (Tests/Meds): ED MEDICATIONS Discontinued Medications Generic Name Dose Route Start Last Admin Trade Name Freq PRN Reason Stop Dose Admin Hydrocodone Bitart/Acetaminophen 1 tab 08/18/20 15:13 08/18/20 15:18 Hydrocodone/Apap 5/325 Mg Tablet PO 08/18/20 15:14 1 tab ONCE ONE Administration ORDERS Category Date Time Status Chest XR 2 view (NOT portable) [XR chest 2V] Stat Exams 08/18/20 15:05 Taken Troponin I Q3H Lab 08/18/20 18:15 Ordered Troponin I Q3H Lab 08/18/20 21:15 Ordered - Radiology Data #1 Image(s): Chest Image Reviewed: Yes I reviewed the patient's radiology results, Yes I reviewed the patient's radiology image, Yes I have reviewed radiologist's interpretation Preliminary Findings: Normal/NAD - Reevaluation(s) Time: 16:02 Reevaluation #1: On reevaluation, patient is feeling better. Troponin negative. Chest x-ray is unremarkable. I do believe the patient's symptoms are consistent with atypical pneumonia versus bronchitis. Patient states that he is allergic to steroids and cannot take them. Patient be discharged on short course of antibiotics. He has bronchodilator therapies at home. He is to follow-up with his PCP in 24 hours. Given strict return precautions. Verbalized understanding. Medical Decision Narrative: 58-year-old male presented to the emergency department with some cough and left-sided chest pain. Findings are consistent with bronchitis. Hemodynamically stable. Work-up initiated. General Adult HPI - General Chief compla
[2020-08-18 15:52] LABS: Troponin I < 0.01 ng/ml (0.00-0.034)
[2020-08-18 15:54] VITALS: BP 106/68; PULSE 65; O2SAT 94
[2020-08-18 16:16] VITALS: BP 130/72; PULSE 100; RESP 18; TEMP 36.6; O2SAT 94
== END 2020-08-18 16:17 | disposition home or self-care (01) ==
PROVIDERS: Emergency Provider Emergency Medicine; PCP Emergency Medicine
DX: J18.9 Pneumonia, unspecified organism (principal); J44.9 Chronic obstructive pulmonary disease, unspecified; I50.9 Heart failure, unspecified; E78.5 Hyperlipidemia, unspecified; I10 Essential (primary) hypertension; F17.210 Nicotine dependence, cigarettes, uncomplicated; Z79.899 Other long term (current) drug therapy
CPT/HCPCS: 71046; 80053; 84484; 85025; 99283

== ENCOUNTER 2020-10-15 22:38 | Emergency (ER) | payer MEDICARE, MEDICAID, SELFPAY ==
[2020-10-15 22:21] VITALS: BP 122/69; PULSE 82; RESP 14; TEMP 36.7; O2SAT 95; BMI 16.7
--- NOTE | 2020-10-15 22:56 | XR_ITS ---
PROCEDURE INFORMATION: Exam: XR Chest Exam date and time: 10/15/20 10:56 PM Age: 60 years old Clinical indication: Other: Od; Patient HX: Overdose TECHNIQUE: Imaging protocol: XR of the chest. Views: 1 view. COMPARISON: CR XR CHEST 2V 08/18/20 03:22 PM FINDINGS: Lungs: Hyperexpanded lungs without infiltrate. Pleural spaces: Unremarkable. No pleural effusion. No pneumothorax. Heart/Mediastinum: Unremarkable. No cardiomegaly. Bones/joints: Anterior fusion C-spine. Healed fracture bilateral posterolateral 6th rib. IMPRESSION: 1. Anterior fusion C-spine. 2. Hyperexpanded lungs without infiltrate. 3. Healed fracture bilateral posterolateral 6th rib.
[2020-10-15 23:11] LABS: Basophils # 0.1 K/mm3 (0-0.2); Basophils % 0.4 % (0.1-2.0); Eosinophils # 0.1 K/mm3 (0.0-0.4); Eosinophils % 0.9 % (0.1-12.0); Hematocrit 40.1 % (42.0-52.0); Hemoglobin 13.1 g/dL (14.1-18.0); Lymphocytes # 1.9 K/mm3 (0.7-4.5); Lymphocytes % 17.7 % (10-50); Mean Corpuscular HGB Conc 32.8 g/dL (31.8-35.4); Mean Corpuscular Hemoglobin 32.7 pg (27.0-31.2); Mean Corpuscular Volume 99.6 fl (80-94); Mean Platelet Volume 7.4 fl (7.4-10.4); Monocytes # 0.7 K/mm3 (0.1-1.0); Monocytes % 6.3 % (1.7-9.3); Neutrophils # 8.1 K/mm3 (1.8-7.8); Neutrophils % 74.6 % (37.0-80.0); Platelet Count 386 K/mm3 (142-424); Red Blood Count 4.02 M/mm3 (4.60-6.20); Red Cell Distribution Width 13.1 % (11.5-17.5); White Blood Count 10.8 K/mm3 (4.8-10.8)
[2020-10-15 23:12] LABS: Alanine Aminotransferase 22 U/L (12-78); Albumin Level 4.2 g/dl (3.5-5.0); Albumin/Globulin Ratio 1.3 (1.1-1.8); Alkaline Phosphatase 128 U/L (38-126); Anion Gap 14.1 mEq/L (5-15); Aspartate Amino Transferase 27 U/L (17-59); Bilirubin,Total 0.5 mg/dl (0.2-1.3); Blood Urea Nitrogen 13 mg/dl (9-20); Calcium 9.1 mg/dl (8.4-10.2); Carbon Dioxide 27 mmol/L (22.0-30.0); Chloride 97 mmol/L (98-107); Creatinine Clearance Estimated 64 mL/min (50-200); Estimated Glomerular Filt Rate 98 ml/min (>60); GFR (African American) 119 ML/MIN (>60); Globulin 3.2 g/dL (1.3-3.2); Glucose 252 mg/dl (74-100); Potassium 4.1 mmoL/L (3.5-5.1); Sodium 134 mmol/L (136-145); Total Protein,Serum 7.4 g/dl (6.3-8.2)
[2020-10-15 23:13] LABS: ABG Base Excess 1.9 mmol/L (-2.4-2.3); ABG HCO3 27.6 mmhg (22.0-26.0); ABG Oxygen Saturation 80 % (90-100); ABG PH 7.34 mmol/L (7.35-7.45); ABG TCO2 29.3 mmhg (23-27)
[2020-10-15 23:13] LABS: Acetaminophen < 10 ug/ml (10-30); Ethyl Alcohol < 10 mg/dl (0-10); Salicylate < 1.0 mg/dL (2.0-20.0)
[2020-10-15 23:17] LABS: Allen's Test Acceptable; Source Right Radial
[2020-10-15 23:18] LABS: ABG PCO2 52.3 mmhg (35.0-45.0)
[2020-10-15 23:19] LABS: ABG PO2 40.2 mmhg (80-100)
[2020-10-15 23:42] LABS: Microscopic, Urine URINE MICROSCOPIC (MICROSCOPIC)
[2020-10-15 23:45] LABS: Appearance,Urine CLEAR (Clear); Bilirubin,Urine Negative (Negative); Blood, Urine Negative (Negative); Color,Urine YELLOW (Yellow); Glucose,Urine (UA) Negative (Negative); Ketones,Urine Negative (Negative); Leukocyte Esterase,Urine Negative (Negative); Nitrate,Urine Negative (Negative); Protein,Urine Negative (Negative); Urobilinogen,Urine 0.2 EU/dl (0.2)
[2020-10-15 23:56] LABS: Amphetamine/Metha Screen,Urine Negative ng/ml (<1000); Benzodiazepines Screen,Urine Negative ng/ml (<200)
[2020-10-15 23:57] LABS: Barbiturates Screen,Urine Negative ng/ml (<200)
[2020-10-15 23:58] LABS: Cannabinoid Screen,Urine Positive ng/ml (<50); Cocaine Screen,Urine Negative ng/ml (<300)
[2020-10-15 23:59] LABS: Methadone Screen,Urine Negative ng/ml (<300); Opiate Screen,Urine Positive ng/ml (<300)
[2020-10-16] VITALS: BP 96/61; O2SAT 98
[2020-10-16] LABS: Phencyclidine Screen,Urine Negative ng/ml (<25)
[2020-10-16 00:07] VITALS: BP 103/63; PULSE 82; RESP 17; O2SAT 95
--- NOTE | 2020-10-16 00:14 | HMH.EDOD ---
ED Disposition Clinical Impression: Poisoning by opiate or related narcotic, Tobacco use COPD (chronic obstructive pulmonary disease) Qualifiers: COPD type: unspecified COPD Qualified Code(s): J44.9 - Chronic obstructive pulmonary disease, unspecified Disposition: Home, Self-Care Condition on Discharge: Fair Instructions: DI for Drug Overdose in Adults Additional Instructions: call pcp on saturday am for follow up Referrals: Rasheed Wadsworth MD [Primary Care Provider] - - Critical Care Critical Care Time: No Attestation: On 10/15/20, the high probability of a clinically significant, sudden or life threatening deterioration of the following system(s) required my full and direct attention, intervention and personal management. The time I documented below is in addition to time spent performing reported procedures but includes the following listed in this critical care notation. Medical Decision Making - Medical Records Medical records reviewed: Yes: I reviewed the patient's medical records. - Marck Inquiry Pt receiving controlled substance: No Vital Signs: 10/15/20 22:21 Temperature 98.0 F Temperature Source Oral Pulse Rate [Right] 82 Respiratory Rate 14 Blood Pressure [Right Arm] 122/69 Blood Pressure Mean [Right Arm] 86 02 Sat by Pulse Oximetry 95 - Lab Data Lab results reviewed: Yes: I reviewed the patient's lab results. Lab Results 10/15/20 22:30: WBC 10.8, RBC 4.02 L, Hgb 13.1 L, Hct 40.1 L, MCV 99.6 H, MCH 32.7 H, MCHC 32.8, RDW 13.1, Plt Count 386, MPV 7.4, Neut % (Auto) 74.6, Lymph % (Auto) 17.7, [place] % (Auto) 6.3, Eos % (Auto) 0.9, Baso % (Auto) 0.4, Neut # (Auto) 8.1 H, Lymph # (Auto) 1.9, [place] # (Auto) 0.7, Eos # (Auto) 0.1, Baso # (Auto) 0.1 10/15/20 22:30: Sodium 134 L, Potassium 4.1, Chloride 97 L, Carbon Dioxide 27, Anion Gap 14.1, BUN 13, Creatinine 0.80, Estimated Creat Clear 64, Estimated GFR 98, Est GFR ( Amer) 119, Glucose 252 H, Calcium 9.1, Total Bilirubin 0.5, AST 27, ALT 22, Alkaline Phosphatase 128 H, Total Protein 7.4, Albumin 4.2, Globulin 3.2, Albumin/Globulin Ratio 1.3, Salicylates < 1.0 L, Acetaminophen < 10 L 10/15/20 22:30: Plasma/Serum Alcohol < 10 10/15/20 22:56: Specimen Source Right radial, ABG pH 7.34 L, ABG pCO2 52.3 H, ABG pO2 40.2 L, ABG HCO3 27.6 H, ABG Total CO2 29.3 H, ABG O2 Saturation 80 L*, ABG Base Excess 1.9, Kyle Test Acceptable 10/15/20 23:35: Urine Color Yellow, Urine Appearance Clear, Urine pH 6.0, Ur Specific [place] 1.020, Urine Protein Negative, Urine Glucose (UA) Negative, Urine Ketones Negative, Urine Blood Negative, Urine Nitrate Negative, Urine Bilirubin Negative, Urine Urobilinogen 0.2, Ur Leukocyte Esterase Negative, Urine RBC None, Urine WBC 3-5, Ur Squamous Epith Cells 20-50, Urine Bacteria None 10/15/20 23:37: Urine Opiates Screen Positive H, Urine Methadone Screen Negative, Ur Barbituates Screen Negative, Ur Phencyclidine Scrn Negative, Ur Amphetamines Screen Negative, U Benzodiazepines Scrn Negative, Urine Cocaine Screen Negative, U Marijuana (THC) Screen Positive H 10/16/20 00:00: Troponin I < 0.01 Result diagrams: 10/15/20 22:30 10/15/20 22:30 Orders (Tests/Meds): ED MEDICATIONS Generic Name Dose Route Start Last Admin Trade Name Freq PRN Reason Stop Dose Admin Sodium Chloride 1,000 mls @ 999 mls/hr 10/15/20 23:00 10/16/20 00:19 Sod Chlor 0.9% 1000ml Bag IV 10/16/20 00:00 999 mls/hr .Q1H1M MARCELA Administration Discontinued Medications Generic Name Dose Route Start Last Admin Trade Name Freq PRN Reason Stop Dose Admin Albuterol/Ipratropium 3 ml 10/16/20 00:21 Ipratropium/Albuterol 3 Ml Neb IH 10/16/20 00:22 ONCE ONE Naloxone HCl 2 mg 10/15/20 23:23 10/16/20 00:20 Naloxone 2mg/2ml Syringe IV 10/15/20 23:24 2 mg ONCE ONE Administration ORDERS Category Date Time Status Troponin I Q3H Lab 10/16/20 03:30 Ordered Troponin I Q3H Lab 10/16/20 06:30 Ordered - Radiology Data
[2020-10-16 00:15] LABS: Squamous Epithelial Cell,Urine 20-50 #/hpf (0-5)
[2020-10-16 00:19] VITALS: O2SAT 94
--- NOTE | 2020-10-16 00:24 | ECG_ITS ---
APPROVED REPORT Exam: Resting ECG HR:78 bpm ECG Measurements Heart Rate 78 AXES IA 146 P 80 QRSd 82 QRS 72 QT 394 T 77 QTc 449 Conclusion Normal sinus rhythm Anterior infarct, age undetermined Abnormal ECG Electronically signed by : Alli Fitzgerald, 10/16/2020 07:28:58
[2020-10-16 00:42] LABS: Troponin I < 0.01 ng/ml (0.00-0.034)
[2020-10-16 01:16] VITALS: BP 105/74; PULSE 84; RESP 16; TEMP 36.7; O2SAT 94
== END 2020-10-16 01:18 | disposition home or self-care (01) ==
PROVIDERS: Emergency Provider Emergency Medicine; PCP Emergency Medicine
DX: T40.601A Poisoning by unspecified narcotics, accidental (unintentional), initial encounter (principal); T40.7X1A Poisoning by cannabis (derivatives), accidental (unintentional), initial encounter; Y92.019 Unspecified place in single-family (private) house as the place of occurrence of the external cause; J44.9 Chronic obstructive pulmonary disease, unspecified; E78.5 Hyperlipidemia, unspecified; I10 Essential (primary) hypertension; I50.9 Heart failure, unspecified; R73.9 Hyperglycemia, unspecified; F17.210 Nicotine dependence, cigarettes, uncomplicated
CPT/HCPCS: 71045; 80053; 80305; 80329; 81001; 82803; 84484; 85025; 93005; 96375; 99283; J2310

== ENCOUNTER → 2021-01-23 12:50 | Outpatient (CLI) | payer MEDICARE, MEDICAID, SELFPAY ==
[2021-01-23 13:55] VITALS: PULSE 81; PULSE 84
--- NOTE | 2021-01-23 14:28 | CT_ITS ---
PROCEDURE: CT LUNG SCREENING CLINICAL INDICATION: lung cancer screening COMPARISON: CT CT CHEST WO CON from 01/19/2020 TECHNIQUE: The exam was performed on a GE Light Speed [address] scanner using 2.90 mGy CTDI. A low dose helical CT CHEST was performed on a multi-detector scanner. All CT scans at the facility use one or more dose reduction, viz: automated exposure control, ma/kV adjustment per patient size (including targeted exams where dose is matched to indication, i.e. head), or iterative reconstruction technique. The LDCT was performed in a facility that meets the criteria for the screening program. Data regarding this exam was submitted to ACR which is an approved registry. The order for this exam indicates that it came as a result of a lung cancer screening counseling shard decision-making visit that included all the elements required of such a visit including smoking cessation. The radiologist interpreting this exam meets the CMS criteria for the LDCT lung cancer screening program. The exam is reported using the Lung-RADS classification scale and reported to the ACR registry. NOTE: This study was performed for the specific purposes of lung cancer screening and is not an alternative to diagnostic chest CT. RADIATION DOSE: CTDI vol(CT dose Index-volume) = 2.90mG DLP (Dose Length Product) = 125.9 mGcm FINDINGS: COPD with centrilobular emphysema and scattered areas of scarring. Bronchial thickening is noted. There are few small subpleural and parenchymal opacities not significantly changed. No suspicious pulmonary nodules are evident. There is a small area of slight increased density in the central aspect of the left lower lobe image 76 series 4 and may be due to a developing area of scarring. Previously noted opacity in the posterior basilar segmental bronchus on the left is no longer apparent and could of into a mucous plug OTHER FINDINGS: Coronary artery calcium. There is mild nonspecific thickening of the distal esophagus. Old left 8th rib fracture. IMPRESSION: Lung-RADS Category 2 Benign Appearance or Behavior Follow-up: Continue annual screening with LDCT in 12 months Dictated by: Kyle Lopez MD 01/29/2021 13:43 Kyle Lopez MD in [place] 01/29/2021 13:43
== END ==
PROVIDERS: PCP Emergency Medicine; Visit Provider Internal Medicine Pulmonary Disease
DX: Z87.891 Personal history of nicotine dependence (principal); Z12.2 Encounter for screening for malignant neoplasm of respiratory organs; R06.02 Shortness of breath
CPT/HCPCS: 71271; 94060; 94640; 94726; 94729

== ENCOUNTER → 2021-06-30 11:35 | Outpatient (POV) | payer MEDICARE, MEDICAID, SELFPAY ==
[2021-06-30 11:45] VITALS: BP 130/74; PULSE 77; RESP 20; TEMP 36.7; O2SAT 97; BMI 17.9
--- NOTE | 2021-06-30 13:02 | P.CONS_ITS ---
[facility] Pain Management SOAP Note Subjective:: This patient is a very pleasant 60-year-old white male who presents today for follow-up. He is currently being managed for herpes zoster resulting in postherpetic neuralgia and polyneuropathy. He was first diagnosed with shingles approximately a year and a half ago and continues to experience shingles related pain affecting the right side of his forehead supraorbital region. He has previously undergone a peripheral nerve block with Dr. SHABANA Bautista and notes that it helped somewhat relieve the pain but he states that it did not cover all of the pain. He also has trialed and failed conservative treatment including oxycodone, gabapentin, and Cymbalta. He is also trialed [id number]-[id number] creams and compounding cream. He states that none of these helped alleviate the pain. He is interested in repeating a peripheral nerve block injection to cover the painful regions over the right side of the supraorbital region and the right side of his forehead. Objective:: General: Alert and oriented x3, no acute distress, pleasant and cooperative Lungs: Resps E/U, symmetric chest expansion Eyes: PERRL Musculoskeletal: Deep tendon reflexes were normal in bilateral lower extremities. Motor exam was grossly intact in the bilateral lower extremities. 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 Schedule him for this procedure at the next clinic visit 1 to 2 weeks. [facility] History I have reviewed the patient's past medical history: Yes Medical History: Reports:: Congestive Heart Failure, Chronic Obstructive Pulmonary Disease (COPD), Hyperlipidemia, Hypertension Denies:: Cancer, Diabetes Mellitus Type 1, Diabetes Mellitus Type 2, Internal Pacemaker, MRSA, Seizures *Have you ever received a pneumonia vaccine?: No *Have you received a flu vaccine this season?: No Other Medical History: Reports: Arthritis, Other. Denies: Blood Transfusion Reaction Other Surgeries: Yes: No Previous Surgery, Other. No: Pacemaker Amputation: No Fractures: Yes - *Social History Smoking Status: Current every day smoker Tobacco Type: cigarettes # Packs/Day (cigarettes): 1 Alcohol Intake: never Alcohol Intake Frequency:: holidays/special occasions only Substance Use Type: denies use *Occupational Status:: disabled Housing: apartment Household Members: none *Travel in the last 8 weeks: None Family Hx:: Unable to obtain
== END ==
PROVIDERS: PCP Emergency Medicine; Visit Provider Anesthesiology Pain Medicine
DX: G62.89 Other specified polyneuropathies (principal); B02.9 Zoster without complications
CPT/HCPCS: 99212; G0463

== ENCOUNTER → 2021-07-05 13:03 | Outpatient (CLI) | payer MEDICARE, MEDICAID, SELFPAY ==
--- NOTE | 2021-07-05 13:04 | CA_ITS ---
APPROVED REPORT EXAM: Comprehensive 2D, Doppler, and color-flow Echocardiogram Voicer: Rachel Seay, RCS, RVS Ht: 5 ft 8 in Wt: 127lbs BSA: 1.68 BP: 92/62 mmHg Indications: SOA, Emphysema, HTN, Smoker Echo Enhancing Agent Comments: Low acess secondary to COPD images obtained more subcostal 2D Dimensions IVSd 0.69 cm LVEF (Visual) 49.00 % PWd 0.75 cm LVDd 4.32 cm LVDs 3.26 cm Aortic Root 2.78 cm Left Atrium 2.02 cm LVOT 1.48 cm (M/F) 1.5-2.5 M-Mode Dimensions RVDd 1.79 cm (0.9-2.6) LVDd 4.43 cm (3.5-5.7) LVDs 3.01 cm (3.5-5.7) IVSd 0.78 cm (0.6-1.1) PWd 0.75 cm (0.6-1.1) EF (Teich) 60.40% EPSs 1.36 cm FS 32.10% EDV (Teich) 89.10 mL TAPSE 1.56 (<1.7) ESV (Teich) 35.30 mL LV Diastology E Decel Time 317.00 (160-240 msec) E/A Ratio 1.20 MED E' 7.30 (< 7 cm/sec) MED A' 9.60 cm/s E'/MED E' Ratio 7.77 (>14) LAT E' 12.60 (<10 cm/sec) LAT A' 9.10 cm/s E/LAT E' Ratio 4.50 (>14) Aortic Valve LVOT Max 72.00 (70-110 cm/s) LVOT VTI 10.85 cm AO Peak GR. 2.60 mmHg Mitral Valve MV A Velocity 47.00 (40-130 cm/s) E/A Ratio 1.20 MV Decel. Time 317.00 (160-240 ms) Pulmonary Valve PV Peak Velocity 58.00 (50-150 cm/s) Tricuspid Valve TR P. Velocity 198.00 cm/s RAP Estimate 10.00 mmHg RVSP 25.70 mmHg Left Ventricle Left atrium is normal size, left ventricle is normal size, there is no concentric left ventricular hypertrophy, visually estimated ejection fraction approximately 45 to 50%, there is abnormal septal motion. Diastolic parameters are inconclusive. Right Ventricle Right atrium and right ventricle relatively normal size and function. Aortic Valve Aortic valve is minimally thickened and fibrosed, there is no aortic stenosis or aortic insufficiency. Mitral Valve Mitral valve grossly normal, there is trace mitral regurgitation. Tricuspid Valve Tricuspid valve grossly normal, there is trace tricuspid regurgitation, tricuspid regurgitation jet velocity is inadequate for calculation of the right ventricular systolic pressure. Pulmonic Valve Pulmonic valve is poorly visualized. Great Vessels Aortic root is normal size. Inferior vena cava is poorly visualized. Pericardium No significant pericardial effusion noted. Conclusion 1. Normal left ventricular size, visually estimated ejection fraction 45 to 50%, there is abnormal septal motion, diastolic parameters are inconclusive. 2. Trace mitral and tricuspid regurgitation. 3. No significant pericardial effusion noted. 4. Inferior vena cava is poorly visualized. Electronically signed by : Butch Parks MD 07/05/2021 19:46:08
== END ==
PROVIDERS: PCP Emergency Medicine; Visit Provider Urology
DX: I10 Essential (primary) hypertension (principal); I42.8 Other cardiomyopathies; Z72.0 Tobacco use
CPT/HCPCS: 93306

== ENCOUNTER 2021-07-07 10:14 | Day surgery (SDC) | payer MEDICARE, MEDICAID, SELFPAY ==
[2021-07-07 10:38] VITALS: BP 113/57; PULSE 75; RESP 20; TEMP 36.8; O2SAT 94; BMI 17.9
[2021-07-07 11:06] VITALS: BP 90/53; PULSE 77; RESP 18; O2SAT 92
[2021-07-07 11:09] VITALS: BP 92/54; PULSE 78; RESP 20; O2SAT 92
--- NOTE | 2021-07-07 11:16 | P.PCN_ITS ---
- Procedure Date: 07/07/21 Time: 11:16 Anesthesiologist:: Kemar Murcia MD Complications:: None Pre-procedure Diagnosis:: Postherpetic polyneuropathy and postherpetic neuralgia right supraorbital area and forehead Post-procedure Diagnosis:: Same Indications for Procedure:: Patient is a pleasant 60-year-old white male who we are treating for postherpetic neuralgia and postherpetic polyneuropathy in the right supraorbital region and forehead. He presents for peripheral nerve block today. He is unable to take Lyrica. He is currently on gabapentin. He is also trying zhut-dfo-batydak compounding creams. We will do a peripheral nerve block to the supraorbital region on the right side today to see if this helps with his pain symptoms. Procedure Details:: Right supraorbital nerve block Informed consent was obtained risk and benefits of the procedure were explained to the patient. Patient was taken the procedure room. The area over the right thigh was prepped using ChloraPrep. Also we prepped medial to the eye. A 25- gauge needle was used and we injected 10 mL bupivacaine 0.25% and Depo-Medrol 40 mg into the right supraorbital region. Patient tolerated procedure well no complications. Plan and Disposition:: We will follow-up with this patient in 1 week. Will reevaluate his symptoms at that time and we will plan on repeat injection if needed.
[2021-07-07 11:18] VITALS: BP 104/39; PULSE 72; RESP 20; O2SAT 94
== END 2021-07-07 11:19 | disposition home or self-care (01) ==
LOC: SC.PAINP 10:16
PROVIDERS: PCP Emergency Medicine; Visit Provider Anesthesiology
DX: B02.23 Postherpetic polyneuropathy (principal); B02.29 Other postherpetic nervous system involvement; I11.0 Hypertensive heart disease with heart failure; E78.5 Hyperlipidemia, unspecified; J44.9 Chronic obstructive pulmonary disease, unspecified; Z72.0 Tobacco use; M19.90 Unspecified osteoarthritis, unspecified site; Z88.6 Allergy status to analgesic agent; Z88.8 Allergy status to other drugs, medicaments and biological substances
CPT/HCPCS: 64400; J1040

== ENCOUNTER → 2021-07-27 06:58 | Outpatient (CLI) | payer MEDICARE, MEDICAID, SELFPAY ==
--- NOTE | 2021-07-27 06:59 | CA_ITS ---
APPROVED REPORT Exam: Pharmacologic Technologist: Trudi Dupree, Ht: 6 ft 2 in Wt: 124 lbs BSA: 1.77 m2 HR: 69 bpm BP: 100/70 mmHg Rhythm: NORMAL SINUS RHYTHM Medical History Medical History: HTN, Hyperlipidemia Medications: Gabapentin,,,,, Atorvastatin,,,,, Carvedilol,,,,, Duoneb,,,,, Albuterol,,,,, DulOXETINE,,,,, OxYCODONE,,,,, AmiTRIPTYLINE,,,,, Tizanidine,,,,, Trelegy,,,,, Sacubitril,,,,, DOxycycline HYCLATE,,,,, Allergies: METHOCARBAMOL,PREGABALIN,PREDNISONE,MOTRIN Cardiac Risk Factors: HTN, Hyperlipidemia, FHX of CAD, Smoking Stress Test Details Test: LEXISCAN HR Resting HR: 72 bpm Max Heart Rate (APMHR): 157.412708 bpm Max HR Achieved: 106 bpm Target HR (85% APMHR): 133.510801 bpm % of APMHR: 67.52 Recovery HR: 86 bpm BP Resting BP: 100.0/70.0 mmHg Max BP: 132.0/77.0 mmHg Recovery BP: 119.0/70.0 mmHg ECG Resting ECG: NORMAL SINUS Clinical Reason for Termination: Completed Protocol Exercise duration: 04:01 min Highest Stage Achieved: Exercise capacity: 1.0 METs Stress ECG Conclusion NON-DIAGNOSTIC LEXISCAN STRESS. PATIENT RECEIVED THE INFUSION PER PROTOCOL WITHOUT CHEST PAIN,ST SEGMENT CHANGES OR ARRHYTHMIAS. SEE THE NUCLEAR REPORT FOR FURTHER INFORMATION Test Summary . . . . . Stop exercise at 04:01 . . Electronically signed by : Butch Parks MD 07/28/2021 08:44:43
--- NOTE | 2021-07-27 06:59 | NM_ITS ---
APPROVED REPORT Exam: Nuclear Stress Test Indication: fatigue Patient Location: Outpatient Stress Tech: Trudi Dupree ME Tech:Joan QuirozGRAEME RT(R)(N) Ht: 6 ft 2 in Wt: 123 lbs HR: 72 bpm BP: 100/70 mmHg BSA: 1.77 m2 BMI: 15.7 History: fatigue Procedure: Patient received a 0.4 mg of intravenous Lexiscan, resting heart rate 72 bpm, resting blood pressure 100/70 mmHg, with Lexiscan maximum heart rate achived was 106 bpm which is Less than 85 % of the maximum predicted heart rate and blood pressure was 132/77 mmHg. With Lexiscan, patient denied any complaint of chest pain. Electrocardiogram Resting electrocardiogram showed sinus rhythm, with Lexiscan there is less than 1.[address] segment depression noted from the baseline EKG. The EKG portion of the Lexiscan is nondiagnostic. Cardiac Stress and Resting SPECT Images: Cardiac Stress and Resting SPECT images were obtained using technetium 99m Myoview 31.0 mCi stress and 10.22 mCi at rest. Gated SPECT for analysis of segmental wall motion and calculation of the ejection fraction also done. Cardiac stress and resting SPECT images show a fixed defect anteroseptally with normal contractility on gated SPECT is likely secondary to soft tissue attenuation, no reversible ischemia seen, computer derived ejection fraction is 46% with no regional wall motion abnormality, right ventricle is mildly enlarged with normal contractility. Conclusion: 1. The EKG portion of the Lexiscan is nondiagnostic. 2. No scintigraphic evidence of reversible ischemia seen, a fixed defect anteroseptal is likely secondary to soft tissue attenuation, computer derived ejection fraction is 46% with no regional wall motion abnormality, right ventricle is mildly enlarged with normal contractility. 3. Likely normal Lexiscan Myoview study. Electronically signed by : Butch Parks MD 07/28/2021 08:50:19
== END ==
PROVIDERS: PCP Emergency Medicine; Visit Provider Nurse Practitioner Family
DX: B02.30 Zoster ocular disease, unspecified (principal); F17.200 Nicotine dependence, unspecified, uncomplicated; G62.9 Polyneuropathy, unspecified; I42.9 Cardiomyopathy, unspecified; R06.00 Dyspnea, unspecified; R07.89 Other chest pain
CPT/HCPCS: 78452; 93017; A9502; J2785

== ENCOUNTER → 2021-07-31 11:39 | Outpatient (POV) | payer MEDICARE, MEDICAID, SELFPAY ==
--- NOTE | 2021-07-31 12:03 | P.CONS_ITS ---
[facility] Pain Management SOAP Note Subjective:: She is a very pleasant 61-year-old white male who presents today for follow-up. He is currently being treated for herpes zoster resulting in postherpetic neuralgia and polyneuropathy. He has recently undergone peripheral nerve block injections to the right supraorbital region and the right side of his forehead and he notes 90% pain relief for approximately 4 days before the pain started to return. He states that the pain is pretty severe again at this time in the right supraorbital and right forehead region. He is currently taking gabapentin 800 mg 3 times daily and states that he is allergic to Lyrica. He is also tried jrca-rag-tpttgfc compounding creams which he was not able to tolerate due to a burning sensation. He is interested in undergoing repeat peripheral nerve block injections to this area for better and return pain relief. Of note, the patient is also taking oxycodone 15 mg 4 times a day #120 that is prescribed by [facility] which he states is for his chronic low back pain related symptoms. He rates his pain as a 7 out of 10 today. Objective:: General: Alert and oriented x3, no acute distress, pleasant and cooperative Lungs: Resps E/U, symmetric chest expansion Eyes: PERRL Musculoskeletal: Tenderness to palpation over the right supraorbital region and right side of his forehead. In: No active lesions present. No erythema or rashes appreciated. Neurological: Speech is clear, associate veterinarian equal, no gross sensory deficits Assessment:: Herpes zoster acting the right supraorbital and right forehead region Postherpetic neuralgia Herpetic polyneuropathy Plan:: I discussed with the patient that he will benefit from a repeat peripheral nerve block injection to the right supraorbital region and right side of his forehead. We will schedule him to have the above injection performed in the next 1 to 2 weeks. [facility] #[id number] was reviewed and appropriate. [facility] History I have reviewed the patient's past medical history: Yes Medical History: Reports:: Congestive Heart Failure, Chronic Obstructive Pulmonary Disease (COPD), Hyperlipidemia, Hypertension Denies:: Cancer, Diabetes Mellitus Type 1, Diabetes Mellitus Type 2, Internal Pacemaker, MRSA, Seizures *Have you ever received a pneumonia vaccine?: No *Have you received a flu vaccine this season?: No Other Medical History: Reports: Arthritis, Other. Denies: Blood Transfusion Reaction Other Surgeries: Yes: No Previous Surgery, Other. No: Pacemaker Amputation: No Fractures: Yes - *Social History Smoking Status: Current every day smoker Tobacco Type: cigarettes # Packs/Day (cigarettes): 1 Alcohol Intake: never Alcohol Intake Frequency:: holidays/special occasions only Substance Use Type: denies use *Occupational Status:: other Housing: house Household Members: other *Travel in the last 8 weeks: None Family Hx:: Unable to obtain
[2021-07-31 12:06] VITALS: BP 126/65; PULSE 65; RESP 18; TEMP 36.9; O2SAT 97; BMI 16.2
== END ==
PROVIDERS: Visit Provider Anesthesiology Pain Medicine
DX: B02.23 Postherpetic polyneuropathy (principal)
CPT/HCPCS: 99212; G0463

== ENCOUNTER 2021-11-18 16:11 | Emergency (ER) | payer MEDICARE, MEDICAID, SELFPAY ==
[2021-11-18] VITALS (8 sets, daily range): BP systolic 95–142; BP diastolic 60–87; PULSE 61–88; RESP 17–28; TEMP 37.1; O2SAT 88–97; BMI 17.4
--- NOTE | 2021-11-18 16:17 | HMH.EDGENADL ---
ED Disposition Clinical Impression: Rhinovirus infection, COPD (chronic obstructive pulmonary disease) Disposition: Home, Self-Care Condition on Discharge: Good Instructions: DI for Chronic Bronchitis Additional Instructions: Use albuterol inhaler every 4 hours as needed 4 puffs for continued shortness of breath. Take the steroids as prescribed and increase oral hydration use Tylenol and ibuprofen for symptoms. Referrals: Rasheed Wadsworth MD [Primary Care Provider] - Time of Disposition: 19:43 - Critical Care Critical Care Time: No Attestation: On , the high probability of a clinically significant, sudden or life threatening deterioration of the following system(s) required my full and direct attention, intervention and personal management. The time I documented below is in addition to time spent performing reported procedures but includes the following listed in this critical care notation. Medical Decision Making - Medical Records Medical records reviewed: Yes: I reviewed the patient's medical records. - Marck Inquiry Pt receiving controlled substance: No Vital Signs: 11/18/21 16:12 11/18/21 16:30 11/18/21 18:00 Temperature 98.8 F Temperature Source Oral Pulse Rate 74 61 Pulse Rate [Radial] 70 Respiratory Rate 28 H 17 19 Blood Pressure 112/64 101/60 L Blood Pressure [Right Arm] 142/87 H Blood Pressure Mean 80 70 Blood Pressure Mean [Right Arm] 105 Blood Pressure Position [Right Arm] Sitting 02 Sat by Pulse Oximetry 88 L 90 L 97 Oxygen Delivery Method Room Air Room Air Nasal Cannula Oxygen Flow Rate (LPM) 2 11/18/21 18:30 11/18/21 19:00 Temperature Temperature Source Pulse Rate 62 65 Pulse Rate [Radial] Respiratory Rate 21 20 Blood Pressure 95/60 L 111/64 Blood Pressure [Right Arm] Blood Pressure Mean 72 79 Blood Pressure Mean [Right Arm] Blood Pressure Position [Right Arm] 02 Sat by Pulse Oximetry 96 96 Oxygen Delivery Method Nasal Cannula Nasal Cannula Oxygen Flow Rate (LPM) 2 2 - Lab Data Lab Results 11/18/21 16:53: WBC 12.3 H, RBC 4.11 L, Hgb 13.5 L, Hct 40.4 L, MCV 98.4 H, MCH 32.8 H, MCHC 33.4, RDW 13.4, Plt Count 402, MPV 7.6, Neut % (Auto) 80.8 H, Lymph % (Auto) 11.0, [place] % (Auto) 6.9, Eos % (Auto) 0.4, Baso % (Auto) 0.9, Neut # (Auto) 10.0 H, Lymph # (Auto) 1.4, [place] # (Auto) 0.9, Eos # (Auto) 0.1, Baso # (Auto) 0.1 11/18/21 16:53: Sodium 130 L, Potassium 3.8, Chloride 97 L, Carbon Dioxide 29, Anion Gap 7.8, BUN 10, Creatinine 0.60 L, Estimated Creat Clear 66, Estimated GFR 136, Est GFR ( Amer) 165, Glucose 138 H, Calcium 8.8, Total Bilirubin 0.4, AST 51, ALT 37, Alkaline Phosphatase 142 H, Total Protein 6.6, Albumin 3.5, Globulin 3.1, Albumin/Globulin Ratio 1.1 11/18/21 17:55: Chlamy pneumoniae PCR Not detected, Adenovirus (PCR) Not detected, B. pertussis DNA (PCR) Not detected, Coronavirus OC43 (PCR) Not detected, Coronavirus HKU1 (PCR) Not detected, Coronavirus 229E (PCR) Not detected, SARS-CoV-2 (PCR) Not detected, Coronavirus NL63 (PCR) Not detected, Human Metapneumovir PCR Not detected, Influenza A (H1) PCR Not detected, Influ A (H1N1/09) PCR Not detected, Influenza A (H3) PCR Not detected, Influenza Type A (PCR) Not detected, Influenza Type B (PCR) Not detected, M. pneumoniae (PCR) Not detected, Parainfluenza 1 (PCR) Not detected, Parainfluenza 2 (PCR) Not detected, Parainfluenza 3 (PCR) Not detected, Parainfluenza 4 (PCR) Not detected, RSV (PCR) Not detected, Entero/Rhino (PCR) Detected A Result diagrams: 11/18/21 16:53 11/18/21 16:53 Orders (Tests/Meds): ED MEDICATIONS Discontinued Medications Generic Name Dose Route Start Last Admin Trade Name Freq PRN Reason Stop Dose Admin Albuterol/Ipratropium 3 ml 11/18/21 16:24 Ipratropium/Albuterol 3 Ml Neb IH 11/18/21 16:25 ONCE ONE Methylprednisolone Sodium Succinate 125 mg 11/18/21 19:19 11/18/21 19:23 Methylprednisolone Sod Succ 125mg Vial IV 11/18/21 19:20 125 m
--- NOTE | 2021-11-18 16:22 | XR_ITS ---
PROCEDURE INFORMATION: Exam: XR Chest Exam date and time: 11/18/2021 4:38 PM Age: 61 years old Clinical indication: Dyspnea TECHNIQUE: Imaging protocol: XR of the chest. Views: 1 view. COMPARISON: CR XR CHEST PORTABLE 10/15/2020 10:56 PM FINDINGS: Lungs: Pulmonary hyperexpansion, similar to previous. No pulmonary infiltrate or consolidation. No pulmonary nodules or masses. Pleural spaces: Unremarkable. No pleural effusion. No pneumothorax. Heart/Mediastinum: Unremarkable. No cardiomegaly. Bones/joints: Anterior cervical fusion plate again noted. IMPRESSION: 1. No acute changes or focal lesions in the chest / thorax. 2. Chronic obstructive pulmonary disease.
--- NOTE | 2021-11-18 16:51 | PC.NURSE ---
patient is resting in bed, SAHRA Quintana is bedside at this time. Breathing Tx is running. Call light within reach.
[2021-11-18 17:12] LABS: Alanine Aminotransferase 37 U/L (12-78); Albumin Level 3.5 g/dl (3.5-5.0); Albumin/Globulin Ratio 1.1 (1.1-1.8); Alkaline Phosphatase 142 U/L (38-126); Anion Gap 7.8 mEq/L (5-15); Aspartate Amino Transferase 51 U/L (17-59); Bilirubin,Total 0.4 mg/dl (0.2-1.3); Blood Urea Nitrogen 10 mg/dl (9-20); Calcium 8.8 mg/dl (8.4-10.2); Carbon Dioxide 29 mmol/L (22.0-30.0); Chloride 97 mmol/L (98-107); Creatinine Clearance Estimated 66 mL/min (50-200); Estimated Glomerular Filt Rate 136 ml/min (>60); GFR (African American) 165 ML/MIN (>60); Globulin 3.1 g/dL (1.3-3.2); Glucose 138 mg/dl (74-100); Potassium 3.8 mmoL/L (3.5-5.1); Sodium 130 mmol/L (136-145); Total Protein,Serum 6.6 g/dl (6.3-8.2)
[2021-11-18 17:17] LABS: Basophils # 0.1 K/mm3 (0-0.2); Basophils % 0.9 % (0.1-2.0); Eosinophils # 0.1 K/mm3 (0.0-0.4); Eosinophils % 0.4 % (0.1-12.0); Hematocrit 40.4 % (42.0-52.0); Hemoglobin 13.5 g/dL (14.1-18.0); Lymphocytes # 1.4 K/mm3 (0.7-4.5); Mean Corpuscular HGB Conc 33.4 g/dL (31.8-35.4); Mean Corpuscular Hemoglobin 32.8 pg (27.0-31.2); Mean Corpuscular Volume 98.4 fl (80-94); Mean Platelet Volume 7.6 fl (7.4-10.4); Monocytes # 0.9 K/mm3 (0.1-1.0); Monocytes % 6.9 % (1.7-9.3); Neutrophils % 80.8 % (37.0-80.0); Platelet Count 402 K/mm3 (142-424); Red Blood Count 4.11 M/mm3 (4.60-6.20); Red Cell Distribution Width 13.4 % (11.5-17.5); White Blood Count 12.3 K/mm3 (4.8-10.8)
[2021-11-18 18:05] LABS: Adenovirus,PCR Not Detected (NotDetected); Bordetella Pertussis Not Detected (NotDetected); Chlamydophila Pneumoniae, PCR Not Detected (NotDetected); Coronavirus 19, PCR Not Detected (NotDetected); Coronavirus 229E Not Detected (NotDetected); Coronavirus NL63 Not Detected (NotDetected); Coronavirus OC43 Not Detected (NotDetected); Coronovirus HKU1,PCR Not Detected (NotDetected); Human Metapneumovirus Not Detected (NotDetected); Influenza A, PCR Not Detected (NotDetected); Influenza AH1, 2009 Not Detected (NotDetected); Influenza AH1, PCR Not Detected (NotDetected); Influenza AH3,PCR Not Detected (NotDetected); Influenza B, PCR Not Detected (NotDetected); Mycoplasma Pneumoniae, PCR Not Detected (NotDetected); Parainfluenza 1, PCR Not Detected (NotDetected); Parainfluenza 2, PCR Not Detected (NotDetected); Parainfluenza 3, PCR Not Detected (NotDetected); Parainfluenza 4, PCR Not Detected (NotDetected); Respiratory Syncytial Virus Not Detected (NotDetected)
[2021-11-18 19:29] LABS: Rhinovirus/Enterovirus Detected (NotDetected)
== END 2021-11-18 20:02 | disposition home or self-care (01) ==
PROVIDERS: Emergency Provider Student in an Organized Health Care Education/Training Program; PCP Emergency Medicine
DX: B34.8 Other viral infections of unspecified site (principal); J44.9 Chronic obstructive pulmonary disease, unspecified; Z91.19 Patient's noncompliance with other medical treatment and regimen; Z79.899 Other long term (current) drug therapy; Z88.8 Allergy status to other drugs, medicaments and biological substances; E78.5 Hyperlipidemia, unspecified; I11.0 Hypertensive heart disease with heart failure; I50.9 Heart failure, unspecified; M19.90 Unspecified osteoarthritis, unspecified site; Z72.0 Tobacco use; Z82.49 Family history of ischemic heart disease and other diseases of the circulatory system; Z83.6 Family history of other diseases of the respiratory system
CPT/HCPCS: 71045; 80053; 85025; 87581; 87632; 87798; 96374; 99284; C9803; U0003; U0005

== ENCOUNTER 2021-11-22 10:10 | Inpatient (IN) | payer MEDICARE, MEDICAID, SELFPAY ==
[2021-11-22] VITALS (12 sets, daily range): BP systolic 104–141; BP diastolic 48–76; PULSE 64–86; RESP 17–24; TEMP 36.6–36.8; O2SAT 86–93; BMI 17.7; BMI 15.9
--- NOTE | 2021-11-22 10:14 | PC.NURSE ---
SAHRA Lipscomb at BS
--- NOTE | 2021-11-22 10:19 | ECG_ITS ---
APPROVED REPORT Exam: Resting ECG HR:76 bpm ECG Measurements Heart Rate 76 AXES TN 116 P 80 QRSd 81 QRS 82 QT 390 T 88 QTc 421 Conclusion SINUS RHYTHM WITH SINUS ARRHYTHMIA WITH SHORT TN INTERVAL LOW QRS VOLTAGE IN PRECORDIAL LEADS [QRS DEFLECTION < 1.0 mV IN CHEST LEADS] BORDERLINE ECG UNCONFIRMED REPORT Electronically signed by : Alli Fitzgerald MD 11/22/2021 16:51:05
--- NOTE | 2021-11-22 10:21 | PC.NURSE ---
Dr. Florence at BS
--- NOTE | 2021-11-22 10:22 | XR_ITS ---
FINAL REPORT CLINICAL HISTORY: shortness of breath/cough COMPARISON: November 18, 2021 FINDINGS: A single portable view of the chest was obtained. The heart size and pulmonary vascularity are within normal limits. The mediastinum is within normal limits. The lungs are hyperinflated, consistent with COPD. There are mild but worsening bibasilar pulmonary opacities, favor atelectasis over pneumonia. The bony thorax is intact. IMPRESSION: Worsening bibasilar pulmonary opacities, favor atelectasis over pneumonia. Hyperinflated lungs consistent with COPD. Reviewed, Interpreted and Dictated by Leon Berry III, MD Transcribed by Eden Nicolas Authenticated and [facility]
--- NOTE | 2021-11-22 10:26 | PC.NURSE ---
RT at BS
--- NOTE | 2021-11-22 10:30 | HMH.EDGENADL ---
ED Disposition Clinical Impression: Rhinovirus infection COPD (chronic obstructive pulmonary disease) Qualifiers: COPD type: COPD with acute exacerbation Qualified Code(s): J44.1 - Chronic obstructive pulmonary disease with (acute) exacerbation Upper respiratory infection Qualifiers: URI type: unspecified URI Qualified Code(s): J06.9 - Acute upper respiratory infection, unspecified Disposition: Admitted As Inpatient Condition on Discharge: Fair Instructions: DI for Acute Bronchitis Referrals: Rasheed Wadsworth MD [Primary Care Provider] - - Critical Care Critical Care Time: No Attestation: On 11/22/21, the high probability of a clinically significant, sudden or life threatening deterioration of the following system(s) required my full and direct attention, intervention and personal management. The time I documented below is in addition to time spent performing reported procedures but includes the following listed in this critical care notation. Medical Decision Making - Medical Records Medical records reviewed: Yes: I reviewed the patient's medical records. - Marck Inquiry Pt receiving controlled substance: No Vital Signs: 11/22/21 10:15 11/22/21 10:25 11/22/21 10:30 Temperature 97.9 F Temperature Source Oral Pulse Rate 86 82 Pulse Rate [Left Radial] 74 Respiratory Rate 24 Blood Pressure 140/67 141/66 H Blood Pressure [Right Arm] 140/67 Blood Pressure Mean 94 91 Blood Pressure Mean [Right Arm] 91 02 Sat by Pulse Oximetry 87 L 86 L 90 L Oxygen Delivery Method Nasal Cannula Nasal Cannula Nasal Cannula Oxygen Flow Rate (LPM) 3 3 3 - Lab Data Lab results reviewed: Yes: I reviewed the patient's lab results. Lab Results 11/22/21 10:22: VBG pH 7.36, VBG pCO2 55.0 H, VBG pO2 32.6, VBG HCO3 30.6 H, VBG Total CO2 32.3 H, VBG O2 Saturation 64.9, VBG Base Excess 5.2 H 11/22/21 10:45: WBC 14.4 H, RBC 4.64, Hgb 14.9, Hct 48.8, MCV 105.1 H, MCH 32.2 H, MCHC 30.6 L, RDW 13.5, Plt Count 522 H D, MPV 7.9, Neut % (Auto) 84.6 H, Lymph % (Auto) 7.0 L, [place] % (Auto) 6.7, Eos % (Auto) 0.4, Baso % (Auto) 1.3, Neut # (Auto) 12.2 H, Lymph # (Auto) 1.0, [place] # (Auto) 1.0, Eos # (Auto) 0.1, Baso # (Auto) 0.2 11/22/21 10:45: Sodium 134 L, Potassium 4.2, Chloride 95 L, Carbon Dioxide 35 H, Anion Gap 8.2, BUN 10, Creatinine 0.60 L, Estimated Creat Clear 67, Estimated GFR 136, Est GFR ( Amer) 165, Glucose 119 H, Calcium 9.6, Total Bilirubin 0.5, AST 26, ALT 34, Alkaline Phosphatase 153 H, Total Protein 7.2, Albumin 3.8, Globulin 3.4 H, Albumin/Globulin Ratio 1.1 11/22/21 10:45: Lactate 1.2 11/22/21 11:01: SARS-CoV-2 (PCR) Not detected, Influenza A Untype (PCR) Not detected, Influenza Type B (PCR) Not detected Result diagrams: 11/22/21 10:45 11/22/21 10:45 Orders (Tests/Meds): ED MEDICATIONS Generic Name Dose Route Start Last Admin Trade Name Freq PRN Reason Stop Dose Admin Azithromycin 500 mg/ Sodium 250 mls @ 250 mls/hr 11/22/21 12:15 11/22/21 12:41 Chloride IV 12/06/21 12:14 250 mls/hr Q24H MARCELA Administration Sodium Chloride 3 ml 11/22/21 10:22 Sodium Chloride 3% 15ml Critical access hospital 12/22/21 10:21 ONCE PRN INDUCE SPUTUM COLLECTION Discontinued Medications Generic Name Dose Route Start Last Admin Trade Name Freq PRN Reason Stop Dose Admin Albuterol/Ipratropium 3 ml 11/22/21 10:22 11/22/21 10:30 Ipratropium/Albuterol 3 Ml Critical access hospital 11/22/21 10:23 3 ml ONCE ONE Administration Albuterol/Ipratropium 9 ml 11/22/21 10:27 11/22/21 10:30 Ipratropium/Albuterol 3 Ml Critical access hospital 11/22/21 10:28 9 ml ONCE ONE Administration Methylprednisolone Sodium Succinate 125 mg 11/22/21 10:37 11/22/21 11:02 Methylprednisolone Sod Succ 125mg Vial IV 11/22/21 10:38 125 mg ONCE ONE Administration Oxycodone/Acetaminophen 1 each 11/22/21 12:15 11/22/21 12:41 Oxycodone 10mg W/Apap 325mg Tablet PO 11/22/21 12:16 1 each ONCE ONE Administration ORDERS Amrita
[2021-11-22 10:47] LABS: VBG Base Excess 5.2 mmol/L (-2.4-2.3); VBG HCO3 30.6 mmol/L (23-30); VBG Oxygen Saturation 64.9 % (50-70); VBG PH 7.36 mmol/L (7.31-7.41); VBG PO2 32.6 mmol/L (28-40); VBG Total CO2 32.3 mmol/L (23-27)
[2021-11-22 11:06] LABS: Basophils # 0.2 K/mm3 (0-0.2); Basophils % 1.3 % (0.1-2.0); Eosinophils # 0.1 K/mm3 (0.0-0.4); Eosinophils % 0.4 % (0.1-12.0); Hematocrit 48.8 % (42.0-52.0); Hemoglobin 14.9 g/dL (14.1-18.0); Mean Corpuscular HGB Conc 30.6 g/dL (31.8-35.4); Mean Corpuscular Hemoglobin 32.2 pg (27.0-31.2); Mean Corpuscular Volume 105.1 fl (80-94); Mean Platelet Volume 7.9 fl (7.4-10.4); Monocytes % 6.7 % (1.7-9.3); Neutrophils # 12.2 K/mm3 (1.8-7.8); Neutrophils % 84.6 % (37.0-80.0); Platelet Count 522 K/mm3 (142-424); Red Blood Count 4.64 M/mm3 (4.60-6.20); Red Cell Distribution Width 13.5 % (11.5-17.5); White Blood Count 14.4 K/mm3 (4.8-10.8)
[2021-11-22 11:15] LABS: Coronavirus 19, PCR Not Detected (NotDetected); Influenza A, PCR Not Detected (NotDetected); Influenza B, PCR Not Detected (NotDetected)
[2021-11-22 11:22] LABS: Chloride 95 mmol/L (98-107); Potassium 4.2 mmoL/L (3.5-5.1); Sodium 134 mmol/L (136-145)
[2021-11-22 11:24] LABS: Alanine Aminotransferase 34 U/L (12-78); Alkaline Phosphatase 153 U/L (38-126); Anion Gap 8.2 mEq/L (5-15); Aspartate Amino Transferase 26 U/L (17-59); Bilirubin,Total 0.5 mg/dl (0.2-1.3); Blood Urea Nitrogen 10 mg/dl (9-20); Carbon Dioxide 35 mmol/L (22.0-30.0); Creatinine Clearance Estimated 67 mL/min (50-200); Estimated Glomerular Filt Rate 136 ml/min (>60); GFR (African American) 165 ML/MIN (>60); Lactic Acid 1.2 mmol/L (0.7-2.1)
[2021-11-22 11:25] LABS: Albumin Level 3.8 g/dl (3.5-5.0); Albumin/Globulin Ratio 1.1 (1.1-1.8); Calcium 9.6 mg/dl (8.4-10.2); Globulin 3.4 g/dL (1.3-3.2); Glucose 119 mg/dl (74-100); Total Protein,Serum 7.2 g/dl (6.3-8.2)
--- NOTE | 2021-11-22 11:48 | PC.NURSE ---
Dr. Florence notified that pts o2 sat is staying around 87 on 3L; she reports to raise oxygen to 3.5 liters at this time.
--- NOTE | 2021-11-22 11:57 | PC.NURSE ---
patients o2 saturation is now at 90% on 3.5 liters.
--- NOTE | 2021-11-22 12:07 | PC.NURSE ---
Calling Dr. Wadsworth for Dr. Florence to speak too
--- NOTE | 2021-11-22 12:17 | PC.NURSE ---
Spoke with Rosita with Care Management regarding patient admission
--- NOTE | 2021-11-22 14:17 | HMH.PHAVTE ---
[facility] Pharm[facility] VTE Monitoring - Patient Demographics Admission date: 11/22/21 Report Date: 11/22/21 Time: 14:17 Allergies/Adverse Reactions: Patient Allergies methocarbamol [From ROBAXIN] Allergy (Unknown, Verified 10/17/21 15:05) pregabalin [From LYRICA] Allergy (Unknown, Verified 10/17/21 15:05) ibuprofen Adverse Reaction (Verified 10/17/21 15:05) Height: 1.88 m Weight: 56.302 kg Patient Problems: Current Active Problems Rhinovirus infection (Acute) Upper respiratory infection (Acute) COPD (chronic obstructive pulmonary disease) (Chronic) - VTE Risk Labs: VTE Related Lab Results Hgb 14.9 g/dL (14.1-18.0) 11/22/21 10:45 Hct 48.8 % (42.0-52.0) 11/22/21 10:45 Plt Count 522 K/mm3 (142-424) H D 11/22/21 10:45 BUN 10 mg/dl (9-20) 11/22/21 10:45 Creatinine 0.60 mg/dl (0.66-1.25) L 11/22/21 10:45 Estimated Creat Clear 67 mL/min (50-200) 11/22/21 10:45 Was VTE Risk Assessment Performed: Yes VTE Score: 6 VTE Risk Level: Moderate Risk - Prophylaxis VTE Prophylaxis Ordered?: Yes Types of VTE Prophylaxis: TEDS Knee High Location of Applied Device: Bilateral Lower Extremeties
--- NOTE | 2021-11-22 14:25 | HMH.PHAINT ---
MEDICATION RECONCILIATION COMPLETED ON PATIENT USING EXTERNAL FILL HISTORY FROM PHARMACY. -MARGARITA LEO, AMALIAD
--- NOTE | 2021-11-22 19:50 | PC.NURSE ---
Patient admitted from ER. Chronic pain in back, neck, legs, spine, arms reported. VS stable and pt remained on 3LNC. No other complaints noted.
--- NOTE | 2021-11-22 20:39 | HMH.HP ---
*Admission Date: 11/22/21 *Chief complaint: sob *History of present illness: this patient presented to the ed -patient is a 61-year-old male presenting to the emergency department chief complaint of shortness of breath cough. Patient was recently seen emergency department on the fourth for similar complaints. Patient is a past medical history of COPD, and has inhalers at home. On the fourth patient was diagnosed with rhinovirus, given an inhalation, as well as methylprednisone and discharged with an albuterol inhaler. Patient states that today his albuterol inhaler was not helping him enough, and he is feeling short of air even with walking short distances so he came to the emergency department. Denies nausea vomiting, chest pain, fever, body aches, additional complaints. patient 61-year-old male presenting to the emergency department with chief complaint of shortness of air. Differential diagnosis for this patient includes COVID-19, influenza, viral URI, COPD exacerbation, pneumothorax, among others. Given this plan to order EKG, VBG, CBC, CMP, chest x-ray. Respiratory was called to give patient a continuous DuoNeb inhalation, patient was given 12 ml of ipratropium and albuterol placed as well as hypertonic saline, in hopes of loosening any thick secretions as well as methylprednisone. Patient did not have significant improvement after these interventions. This x-ray showed hyperexpansion, but no signs of a focal consolidation. VBG showed some hypoixa and hypercapnea without significant acidosis. Patient was nottachycardic and EKG showed sinus rhythm without ST elevation or depression. Patient was reassessed and did not have significant provement in wheezing, and continued to require 3 L of oxygen to saturate in the 90s. Patient history of COPD, also concern for atypical pneumonia, will place patient on azithromycin. Discussed patient with hospitalist, for admission. Will admit patient. [facility] History I have reviewed the patient's past medical history: Yes Medical History: Reports:: Congestive Heart Failure, Chronic Obstructive Pulmonary Disease (COPD), Hyperlipidemia, Hypertension Denies:: Cancer, Diabetes Mellitus Type 1, Diabetes Mellitus Type 2, Internal Pacemaker, MRSA, Seizures *Have you ever received a pneumonia vaccine?: No *Have you received a flu vaccine this season?: No Other Medical History: Reports: Arthritis, Other. Denies: Blood Transfusion Reaction Other Surgeries: Yes: No Previous Surgery, Other. No: Pacemaker Amputation: No Fractures: Yes - *Social History Smoking Status: Current every day smoker Tobacco Type: cigarettes # Packs/Day (cigarettes): 1 Alcohol Intake: never Alcohol Intake Frequency:: holidays/special occasions only Substance Use Type: denies use *Occupational Status:: disabled Housing: house Household Members: other *Travel in the last 8 weeks: None Family Hx:: Diabetes, Other Review of Systems - Review of Systems Review of systems:: pertinent systems reviewed and negative unless documented below - Constitutional Denies fever(s) - Eyes Denies change in vision - ENT Denies sore throat - *Cardiovascular Reports shortness of breath - *Respiratory Reports cough, Reports shortness of breath - *Gastrointestinal Denies abdominal pain - *Genitourinary Denies blood in urine - *Musculoskeletal Reports joint pain, Reports back pain, Reports neck pain - Integumentary/Breasts Denies rash - *Neurologic Denies headache(s), Denies seizure-like activity - Psychiatric Denies anxiety Meds Home Medications Medication Instructions Recorded Confirmed Type gabapentin 800 mg tablet 800 mg PO TID tab 03/03/20 11/22/21 History oxycodone 15 mg tablet 15 mg PO QIDP PRN tab 03/03/20 11/22/21 History Umeclidinium Brm/Vilanterol Tr 1 puff IH DAILY 06/30/21 11/22/21 History [Anoro Ellipta] Albuterol Sulfate [Albuterol 1 puff IH QIDP PRN 11/22/21 11/22/21 History Sulfate Hfa] Atorvasta
[2021-11-23] VITALS (7 sets, daily range): BP systolic 99–137; BP diastolic 60–75; PULSE 59–86; RESP 18–22; TEMP 36.4–36.8; O2SAT 88–98; BMI 15.7
--- NOTE | 2021-11-23 03:10 | PC.NURSE ---
Patient has rested well this shift. Complaints of chronic pain. Gave one time medication per Dr. Wadsworth. Ambulated independently to the bathroom and back to bed. No other complaints. Call light in place and working appropriately.
--- NOTE | 2021-11-23 06:00 | XR_ITS ---
PROCEDURE INFORMATION: Exam: XR Chest Exam date and time: 11/23/2021 5:44 AM Age: 61 years old Clinical indication: Shortness of breath; Additional info: SOA TECHNIQUE: Imaging protocol: XR of the chest. Views: 1 view. COMPARISON: 1. CR XR CHEST PORTABLE 11/22/2021 10:26 AM 2. Chest x-ray 11/18/2021. 3. Chest x-ray 10/15/2020. FINDINGS: Airway: Tracheal deviation to the right at the base of the neck at the level of the ACDF; findings are similar to previous and appear to be chronic. Lungs: No significant change in mild nonspecific interstitial type opacities. No new focal consolidation. Probable emphysematous changes. Old granulomatous disease. Pleural spaces: No pneumothorax. Heart/Mediastinum: Unremarkable. No cardiomegaly. Bones/joints: Old rib fractures. ACDF. IMPRESSION: Similar appearance to previous as detailed above.
[2021-11-23 06:23] LABS: Basophils # 0.3 K/mm3 (0-0.2); Basophils % 2.3 % (0.1-2.0); Eosinophils % 0.3 % (0.1-12.0); Hematocrit 46.5 % (42.0-52.0); Hemoglobin 14.8 g/dL (14.1-18.0); Lymphocytes # 1.3 K/mm3 (0.7-4.5); Lymphocytes % 8.8 % (10-50); Mean Corpuscular HGB Conc 31.8 g/dL (31.8-35.4); Mean Corpuscular Hemoglobin 32.4 pg (27.0-31.2); Mean Corpuscular Volume 101.8 fl (80-94); Mean Platelet Volume 7.3 fl (7.4-10.4); Monocytes # 0.9 K/mm3 (0.1-1.0); Monocytes % 6.4 % (1.7-9.3); Neutrophils # 11.8 K/mm3 (1.8-7.8); Neutrophils % 82.2 % (37.0-80.0); Platelet Count 601 K/mm3 (142-424); Red Blood Count 4.57 M/mm3 (4.60-6.20); Red Cell Distribution Width 13.5 % (11.5-17.5); White Blood Count 14.3 K/mm3 (4.8-10.8)
[2021-11-23 06:33] LABS: Chloride 99 mmol/L (98-107); Potassium 4.7 mmoL/L (3.5-5.1); Sodium 135 mmol/L (136-145)
[2021-11-23 06:36] LABS: Anion Gap 4.7 mEq/L (5-15); Blood Urea Nitrogen 13 mg/dl (9-20); Calcium 9.7 mg/dl (8.4-10.2); Carbon Dioxide 36 mmol/L (22.0-30.0); Creatinine Clearance Estimated 60 mL/min (50-200); Estimated Glomerular Filt Rate 136 ml/min (>60); GFR (African American) 165 ML/MIN (>60); Glucose 124 mg/dl (74-100)
--- NOTE | 2021-11-23 09:56 | HMH.ACPN2 ---
Internal Medicine - PN: Subj *Date: 11/23/21 *Time: 12:02 Interval history: 61-year-old male patient sitting up in bed slightly short of breath. He does report he feels better today than yesterday, oxygenation on 4 L per nasal cannula is 96%. He reports he has been using all of his inhalers at home and is still smoking. Exam Vital signs and Labs for Last 24 Hours: Temp Pulse Resp BP Pulse Ox 98.2 F 71 22 127/75 98 11/23/21 08:00 11/23/21 08:00 11/23/21 08:00 11/23/21 08:00 11/23/21 08:00 Laboratory Results - last 24 hr 11/22/21 10:22: VBG pH 7.36, VBG pCO2 55.0 H, VBG pO2 32.6, VBG HCO3 30.6 H, VBG Total CO2 32.3 H, VBG O2 Saturation 64.9, VBG Base Excess 5.2 H 11/22/21 10:45: WBC 14.4 H, RBC 4.64, Hgb 14.9, Hct 48.8, MCV 105.1 H, MCH 32.2 H, MCHC 30.6 L, RDW 13.5, Plt Count 522 H D, MPV 7.9, Neut % (Auto) 84.6 H, Lymph % (Auto) 7.0 L, [place] % (Auto) 6.7, Eos % (Auto) 0.4, Baso % (Auto) 1.3, Neut # (Auto) 12.2 H, Lymph # (Auto) 1.0, [place] # (Auto) 1.0, Eos # (Auto) 0.1, Baso # (Auto) 0.2 11/22/21 10:45: Sodium 134 L, Potassium 4.2, Chloride 95 L, Carbon Dioxide 35 H, Anion Gap 8.2, BUN 10, Creatinine 0.60 L, Estimated Creat Clear 67, Estimated GFR 136, Est GFR ( Amer) 165, Glucose 119 H, Calcium 9.6, Total Bilirubin 0.5, AST 26, ALT 34, Alkaline Phosphatase 153 H, Total Protein 7.2, Albumin 3.8, Globulin 3.4 H, Albumin/Globulin Ratio 1.1 11/22/21 10:45: Lactate 1.2 11/22/21 11:01: SARS-CoV-2 (PCR) Not detected, Influenza A Untype (PCR) Not detected, Influenza Type B (PCR) Not detected 11/23/21 05:43: WBC 14.3 H, RBC 4.57 L, Hgb 14.8, Hct 46.5, MCV 101.8 H, MCH 32.4 H, MCHC 31.8, RDW 13.5, Plt Count 601 H, MPV 7.3 L, Neut % (Auto) 82.2 H, Lymph % (Auto) 8.8 L, [place] % (Auto) 6.4, Eos % (Auto) 0.3, Baso % (Auto) 2.3 H, Neut # (Auto) 11.8 H, Lymph # (Auto) 1.3, [place] # (Auto) 0.9, Eos # (Auto) 0.0, Baso # (Auto) 0.3 H 11/23/21 06:03: Sodium 135 L, Potassium 4.7, Chloride 99, Carbon Dioxide 36 H, Anion Gap 4.7 L, BUN 13 D, Creatinine 0.60 L, Estimated Creat Clear 60, Estimated GFR 136, Est GFR ( Amer) 165, Glucose 124 H, Calcium 9.7 I & O for Last 24 hours: Intake & Output 11/20/21 11/21/21 11/22/21 11/23/21 23:59 23:59 23:59 23:59 Intake Total 360 / 840 720 / 720 Balance 360 / 840 720 / 720 Weight 124 lb 2 oz 123 lb Microbiology Reports for the Last 24 Hours: Microbiology 11/22/21 10:16 Sputum - Expectorated Sputum Gram Stain - Final 11/22/21 10:16 Sputum - Expectorated Sputum Sputum Culture - Preliminary - Constitutional mild distress, thin - *Routine HEENT Exam Head: Present: normocephalic Eye: Present: EOMI ENT: Present: mucous membranes dry - *Routine Neck Exam Present: trachea midline. Absent: tracheal deviation - *Routine Respiratory Exam Present: wheezes. Absent: accessory muscle use - *Routine Cardiovascular Exam Present: RRR - *Routine Abdominal Exam Present: soft, normoactive bowel sounds. Absent: tenderness, firm - *Routine Extremities Exam Present: full ROM, pulses intact. Absent: cyanosis, clubbing - *Routine Skin Exam Present: intact, dry. Absent: cyanosis, erythema - *Routine Neurological Exam Present: alert, oriented X3. Absent: motor deficit - Routine Psychiatric Exam Present: normal affect, normal thought process. Absent: auditory hallucinations Assessment and Plan (1) COPD (chronic obstructive pulmonary disease) with acute bronchitis Status: Acute Category: Medical Code(s): J44.0 - Chronic obstructive pulmonary disease with (acute) lower respiratory infection; J20.9 - Acute bronchitis, unspecified (2) Tobacco use Status: Chronic Category: Social Hx Code(s): Z72.0 - Tobacco use (3) Low body mass index (BMI) Status: Acute Category: Medical - Assessment and plan all Dx Assessment and Plan for all problems:: Rounded with Dr. Anthony, all orders per Dr. Anthony: 1. Urology to see
--- NOTE | 2021-11-23 11:36 | HMH.PULMCON ---
*Admission Date: 11/22/21 *Reason for consult:: Acute chronic respiratory failure, COPD exacerbation *History of present illness: Mr. Turk 61-year-old male current smoker greater than [id number] smoking history currently diagnosed COPD on inhaler therapy presented to hospital with gradually worsening respiratory distress along with cough and productive phlegm, admits sick contacts and found to be needing oxygen requirements on admission and pulmonary was called for the management [facility] History Medical History: Reports:: Congestive Heart Failure, Chronic Obstructive Pulmonary Disease (COPD), Hyperlipidemia, Hypertension Denies:: Cancer, Diabetes Mellitus Type 1, Diabetes Mellitus Type 2, Internal Pacemaker, MRSA, Seizures *Have you ever received a pneumonia vaccine?: No *Have you received a flu vaccine this season?: No Other Medical History: Reports: Arthritis, Other. Denies: Blood Transfusion Reaction Other Surgeries: Yes: No Previous Surgery, Other. No: Pacemaker Amputation: No Fractures: Yes - *Social History Smoking Status: Current every day smoker Tobacco Type: cigarettes # Packs/Day (cigarettes): 1 Alcohol Intake: never Alcohol Intake Frequency:: holidays/special occasions only Substance Use Type: denies use *Occupational Status:: disabled Housing: house Household Members: other *Travel in the last 8 weeks: None Family Hx:: Diabetes, Other ROS - Cons Reports body ache(s), Reports fatigue - Eyes Reports blurry vision - ENT Denies bleeding gums - Card Reports shortness of breath, Reports shortness of breath with activity - Resp Respiratory: Reports chest congestion, Reports cough, Reports dyspnea on exertion, Reports excessive phlegm production, Denies coughing up blood, Denies pain on inspiration, Denies pain with cough, Reports cough with sputum production, Reports wheezing - GI Gastrointestingal: Denies: abdominal pain - [place] Musculoskeletal: Reports muscle aches - Psych Denies thoughts of hurting/killing others, Denies thoughts of hurting/killing yourself Meds Home Medications Medication Instructions Recorded Confirmed Type gabapentin 800 mg tablet 800 mg PO TID tab 03/03/20 11/22/21 History oxycodone 15 mg tablet 15 mg PO QIDP PRN tab 03/03/20 11/22/21 History Umeclidinium Brm/Vilanterol Tr 1 puff IH DAILY 06/30/21 11/22/21 History [Anoro Ellipta] Albuterol Sulfate [Albuterol 1 puff IH QIDP PRN 11/22/21 11/22/21 History Sulfate Hfa] Atorvastatin Calcium [Lipitor 10mg 10 mg PO HS 11/22/21 11/22/21 History Tab] Diclofenac Sodium [Voltaren 2 g TP QID 11/22/21 11/22/21 History Arthritis Pain] Duloxetine HCl [Cymbalta] 60 mg PO BID 11/22/21 11/22/21 History Ipratropium/Albuterol Sulfate 3 ml IH QIDP PRN 11/22/21 11/22/21 History [Duoneb 3mL neb] Lidocaine [Lidoderm 5% transdermal 1 each TD DAILY 11/22/21 11/22/21 History patch] Lifitegrast [Xiidra] 1 drp OP BID 11/22/21 11/22/21 History Sacubitril/Valsartan [Entresto] 1 each PO BID 11/22/21 11/22/21 History Tizanidine HCl 4 mg PO TIDP PRN 11/22/21 11/22/21 History carvediloL [Carvedilol 3.125mg Tab] 3.125 mg PO BID 11/22/21 11/22/21 History Allergies Allergy/AdvReac Type Severity Reaction Status Date / Time methocarbamol [From ROBAXIN] Allergy Unknown Verified 10/17/21 15:05 pregabalin [From LYRICA] Allergy Unknown Verified 10/17/21 15:05 ibuprofen AdvReac Verified 10/17/21 15:05 Exam - Constitutional Constitutional:: Present: no acute distress, comfortable - HENMT Exam HENMT: Present: normocephalic - Eye Exam Eyes:: Present: normal appearance both eyes and related structures - Neck Exam Neck:: Present: normal visual inspection - Respiratory Exam Respiratory:: Present: able to speak in complete sentences, respiratory distress, wheezing. Absent: crackles - Cardiovascular Exam Cardiac:: Present: S1, S2 - GI Exam GI:: Present: soft, no hepatosplenomegaly - Skin Exam Skin: Present: w
--- NOTE | 2021-11-23 18:06 | PC.NURSE ---
Patient's home pain medication reordered. VS stable. Patient's oxygen was increased to 4LNC after slow recovery when patient had taken oxygen off. No signs of distress noted and patient stated he felt fine. No other complaints noted.
[2021-11-24] VITALS (10 sets, daily range): BP systolic 111–131; BP diastolic 64–70; PULSE 55–81; RESP 16–20; TEMP 36.6–36.8; O2SAT 88–97; BMI 15.8
--- NOTE | 2021-11-24 04:18 | PC.NURSE ---
Patient is alert and oriented x4. Has rested well this shift. C/o pain earlier in the shift, gave medications per MAR. Call light in place and working appropriately.
[2021-11-24 06:42] LABS: Basophils # 0.1 K/mm3 (0-0.2); Basophils % 0.9 % (0.1-2.0); Eosinophils # 0.1 K/mm3 (0.0-0.4); Eosinophils % 0.6 % (0.1-12.0); Hematocrit 41.9 % (42.0-52.0); Hemoglobin 13.6 g/dL (14.1-18.0); Lymphocytes # 1.4 K/mm3 (0.7-4.5); Lymphocytes % 13.2 % (10-50); Mean Corpuscular HGB Conc 32.4 g/dL (31.8-35.4); Mean Corpuscular Hemoglobin 32.4 pg (27.0-31.2); Mean Platelet Volume 7.4 fl (7.4-10.4); Monocytes # 0.6 K/mm3 (0.1-1.0); Monocytes % 6.1 % (1.7-9.3); Neutrophils # 8.4 K/mm3 (1.8-7.8); Neutrophils % 79.3 % (37.0-80.0); Platelet Count 534 K/mm3 (142-424); Red Cell Distribution Width 13.6 % (11.5-17.5); White Blood Count 10.5 K/mm3 (4.8-10.8)
[2021-11-24 06:49] LABS: Chloride 100 mmol/L (98-107); Potassium 4.1 mmoL/L (3.5-5.1); Sodium 137 mmol/L (136-145)
[2021-11-24 06:52] LABS: Blood Urea Nitrogen 16 mg/dl (9-20); Creatinine Clearance Estimated 60 mL/min (50-200); Estimated Glomerular Filt Rate 136 ml/min (>60); GFR (African American) 165 ML/MIN (>60)
[2021-11-24 06:53] LABS: Anion Gap 4.1 mEq/L (5-15); Carbon Dioxide 37 mmol/L (22.0-30.0); Glucose 105 mg/dl (74-100)
--- NOTE | 2021-11-24 09:30 | HMH.PULMPN ---
Internal Medicine - PN: Subj *Date: 12/25/21 *Time: 16:01 Interval history: No acute respiratory vents overnight. Minimal improvement in respiratory symptoms. Exam - Constitutional Constitutional:: Present: no acute distress. Absent: comfortable - HENMT Exam HENMT: Present: normocephalic - Eye Exam Eyes:: Present: normal appearance both eyes and related structures - Neck Exam Neck:: Present: normal visual inspection - Respiratory Exam Respiratory:: Present: able to speak in complete sentences, respiratory distress, wheezing - Cardiovascular Exam Cardiac:: Present: S1, S2 - GI Exam GI:: Present: soft - Skin Exam Skin: Present: warm, no rash - Neurological Exam Neurological: Present: alert, awake - Extremities Exam Extremities: Present: no cyanosis, no clubbing Assessment and Plan (1) COPD (chronic obstructive pulmonary disease) with acute bronchitis Status: Acute Category: Medical Code(s): J44.0 - Chronic obstructive pulmonary disease with (acute) lower respiratory infection; J20.9 - Acute bronchitis, unspecified (2) Tobacco use Status: Chronic Category: Social Hx Code(s): Z72.0 - Tobacco use (3) Low body mass index (BMI) Status: Acute Category: Medical - Assessment and plan all Dx Assessment and Plan for all problems:: #COPD exacerbation: 61-year-old male current smoker greater than [id number] smoking history. On Anoro inhaler at home. No sick contacts, grandkids diagnosed with RSV and rhinovirus. Presented with gradually worsening respiratory distress. Chest x-ray no acute pulmonary infiltrates. Auscultation on admission bilateral diffuse wheezing. New oxygen requirement now needing 3 L nasal cannula, saturating 90% this morning. Interval update: Slight improvement in respiratory symptoms. Continue to remain on nasal cannula can supplementation. Auscultation bilateral wheezing slightly improved from yesterday. Plan: -Continue nasal cannula can supplementation to maintain O2 saturation goal of 90% and above -DuoNebs every 4 hours along with budesonide every 12 scheduled -Prednisone 40 mg daily x5 days -Levofloxacin 750 mg oral daily x5 days. #Thank for involving pulmonary in this patient care. We will continue to follow.
--- NOTE | 2021-11-24 09:49 | P.PN_ITS ---
Internal Medicine - PN: Subj *Date: 11/24/21 *Time: 09:25 Interval history: pt states still soa, o2 at 3 liters Exam Vital signs and Labs for Last 24 Hours: Temp Pulse Resp BP Pulse Ox 98.1 F 77 16 131/70 92 L 11/24/21 08:00 11/24/21 09:43 11/24/21 08:00 11/24/21 08:00 11/24/21 08:00 Laboratory Results - last 24 hr 11/24/21 06:20: WBC 10.5 D, RBC 4.20 L, Hgb 13.6 L, Hct 41.9 L, MCV 100.0 H, MCH 32.4 H, MCHC 32.4, RDW 13.6, Plt Count 534 H, MPV 7.4, Neut % (Auto) 79.3, Lymph % (Auto) 13.2, [place] % (Auto) 6.1, Eos % (Auto) 0.6, Baso % (Auto) 0.9, Neut # (Auto) 8.4 H, Lymph # (Auto) 1.4, [place] # (Auto) 0.6, Eos # (Auto) 0.1, Baso # (Auto) 0.1 11/24/21 06:20: Sodium 137, Potassium 4.1, Chloride 100, Carbon Dioxide 37 H, Anion Gap 4.1 L, BUN 16, Creatinine 0.60 L, Estimated Creat Clear 60, Estimated GFR 136, Est GFR ( Amer) 165, Glucose 105 H, Calcium 9.0 I & O for Last 24 hours: Intake & Output 11/21/21 11/22/21 11/23/21 11/24/21 11:59 11:59 11:59 11:59 Intake Total 1079 / 10790 / 1839 Balance 1079 / 10790 / 184 Weight 138 lb 122 lb 15.934 oz 123 lb 11.2 oz Microbiology Reports for the Last 24 Hours: Microbiology 11/22/21 10:16 Sputum - Expectorated Sputum Gram Stain - Final 11/22/21 10:16 Sputum - Expectorated Sputum Sputum Culture - Preliminary - Constitutional no acute distress, thin - *Routine HEENT Exam Head: Present: normocephalic Eye: Present: PERRL ENT: Present: mucous membranes moist - *Routine Neck Exam Present: supple. Absent: lymphadenopathy - *Routine Respiratory Exam Present: wheezes - *Routine Cardiovascular Exam Present: RRR - *Routine Abdominal Exam Present: soft, normoactive bowel sounds. Absent: tenderness - *Routine Extremities Exam Absent: cyanosis, clubbing, edema - *Routine Skin Exam Present: warm. Absent: rash - *Routine Neurological Exam Present: alert, oriented X3 Assessment and Plan (1) COPD (chronic obstructive pulmonary disease) with acute bronchitis Status: Acute Category: Medical Code(s): J44.0 - Chronic obstructive pulmonary disease with (acute) lower respiratory infection; J20.9 - Acute bronchitis, unspecified (2) Tobacco use Status: Chronic Category: Social Hx Code(s): Z72.0 - Tobacco use (3) Low body mass index (BMI) Status: Acute Category: Medical - Assessment and plan all Dx Assessment and Plan for all problems:: rounded with dr stover all orders per dr stover change steroids wean o2
[2021-11-25] VITALS (10 sets, daily range): BP systolic 118–146; BP diastolic 60–75; PULSE 57–97; RESP 16–19; TEMP 36.4–36.8; O2SAT 90–95; BMI 16.2
--- NOTE | 2021-11-25 05:12 | PC.NURSE ---
Pt has rested throughout shift. Pt had episodes of coughing, cough is productive. Pt complained of pain, treated PRN per AUG. Pt independent and walks self to bathroom. Pt O2 sat 91-93% on 3L NC.
[2021-11-25 08:03] LABS: Basophils % 0.4 % (0.1-2.0); Eosinophils % 0.1 % (0.1-12.0); Hematocrit 42.5 % (42.0-52.0); Hemoglobin 14.1 g/dL (14.1-18.0); Lymphocytes # 0.8 K/mm3 (0.7-4.5); Lymphocytes % 6.9 % (10-50); Mean Corpuscular HGB Conc 33.2 g/dL (31.8-35.4); Mean Corpuscular Hemoglobin 33.5 pg (27.0-31.2); Mean Platelet Volume 8.5 fl (7.4-10.4); Monocytes # 0.3 K/mm3 (0.1-1.0); Monocytes % 2.4 % (1.7-9.3); Neutrophils # 9.8 K/mm3 (1.8-7.8); Neutrophils % 90.2 % (37.0-80.0); Platelet Count 591 K/mm3 (142-424); Red Blood Count 4.21 M/mm3 (4.60-6.20); Red Cell Distribution Width 13.5 % (11.5-17.5); White Blood Count 10.9 K/mm3 (4.8-10.8)
[2021-11-25 08:06] LABS: MANUAL DIFFERENTIAL MANUAL DIFFERENTIAL (MANUAL DIFF)
[2021-11-25 08:19] LABS: Chloride 97 mmol/L (98-107); Sodium 136 mmol/L (136-145)
[2021-11-25 08:20] LABS: Potassium 4.3 mmoL/L (3.5-5.1)
[2021-11-25 08:22] LABS: Blood Urea Nitrogen 17 mg/dl (9-20); Creatinine Clearance Estimated 61 mL/min (50-200); Estimated Glomerular Filt Rate 136 ml/min (>60); GFR (African American) 165 ML/MIN (>60)
[2021-11-25 08:23] LABS: Anion Gap 10.3 mEq/L (5-15); Calcium 9.4 mg/dl (8.4-10.2); Carbon Dioxide 33 mmol/L (22.0-30.0); Glucose 160 mg/dl (74-100)
[2021-11-25 11:19] LABS: Lymphocytes % 8 % (10-50); Monocytes % 2 % (2-9); Neutrophils % 90 % (42-76); Platelet Estimate Slight Increase; Total Cells Counted 100
[2021-11-25 11:20] LABS: RBC Morphology Normal
--- NOTE | 2021-11-25 14:54 | HMH.ACPN2 ---
Internal Medicine - PN: Subj *Date: 11/25/21 *Time: 14:54 Interval history: feeling better addition of steroids with positive effect sputum=gram neg rods will broaden coverage Exam Vital signs and Labs for Last 24 Hours: Temp Pulse Resp BP Pulse Ox 97.8 F 69 16 144/69 H 91 L 11/25/21 08:00 11/25/21 14:18 11/25/21 08:00 11/25/21 08:00 11/25/21 14:18 Laboratory Results - last 24 hr 11/25/21 06:20: WBC 10.9 H, RBC 4.21 L, Hgb 14.1, Hct 42.5, MCV 101.0 H, MCH 33.5 H, MCHC 33.2, RDW 13.5, Plt Count 591 H, MPV 8.5, Neut % (Auto) 90.2 H, Lymph % (Auto) 6.9 L, [place] % (Auto) 2.4, Eos % (Auto) 0.1, Baso % (Auto) 0.4, Neut # (Auto) 9.8 H, Lymph # (Auto) 0.8, [place] # (Auto) 0.3, Eos # (Auto) 0.0, Baso # (Auto) 0.0, Total Counted 100, Neutrophils % (Manual) 90 H, Lymphocytes % (Manual) 8 L, Monocytes % (Manual) 2, Platelet Estimate Slight increase, RBC Morphology Normal 11/25/21 06:20: Sodium 136, Potassium 4.3, Chloride 97 L, Carbon Dioxide 33 H, Anion Gap 10.3, BUN 17, Creatinine 0.60 L, Estimated Creat Clear 61, Estimated GFR 136, Est GFR ( Amer) 165, Glucose 160 H D, Calcium 9.4 I & O for Last 24 hours: Intake & Output 11/22/21 11/23/21 11/24/21 11/25/21 23:59 23:59 23:59 23:59 Intake Total 360 / 840 2160 / 2320 1840 / 1840 1080 / 1080 Balance 360 / 840 2160 / 2320 1839 / 1840 1080 / 1080 Weight 124 lb 2 oz 122 lb 15.934 oz 123 lb 11.2 oz 126 lb 9.6 oz Microbiology Reports for the Last 24 Hours: Microbiology 11/22/21 10:16 Sputum - Expectorated Sputum Gram Stain - Final 11/22/21 10:16 Sputum - Expectorated Sputum Sputum Culture - Preliminary Gram Negative Rods 11/22/21 10:45 Blood Blood Culture - Preliminary NO GROWTH AFTER 48 HOURS 11/22/21 10:45 Blood Blood Culture - Preliminary NO GROWTH AFTER 48 HOURS - Constitutional thin, chronically ill appearing - *Routine HEENT Exam Head: Present: normocephalic Eye: Present: EOMI, PERRL ENT: Present: mucous membranes moist - *Routine Neck Exam Present: supple. Absent: lymphadenopathy - *Routine Respiratory Exam Present: rhonchi, wheezes, crackles, distant breath sounds, diminished air movement. Absent: accessory muscle use, respiratory distress - *Routine Cardiovascular Exam Present: RRR - *Routine Abdominal Exam Present: soft, normoactive bowel sounds. Absent: tenderness - *Routine Extremities Exam Absent: cyanosis, clubbing, edema - *Routine Skin Exam Present: warm. Absent: rash - *Routine Neurological Exam Present: alert, oriented X3 Assessment and Plan (1) COPD (chronic obstructive pulmonary disease) with acute bronchitis Status: Acute Category: Medical Code(s): J44.0 - Chronic obstructive pulmonary disease with (acute) lower respiratory infection; J20.9 - Acute bronchitis, unspecified (2) Tobacco use Status: Chronic Category: Social Hx Code(s): Z72.0 - Tobacco use (3) Low body mass index (BMI) Status: Acute Category: Medical - Assessment and plan all Dx Assessment and Plan for all problems:: continue steroids try to wean 02 broaden abx coverage await final id from sputum
--- NOTE | 2021-11-25 16:30 | PC.NURSE ---
no change from previous assessment. weaned down o2 to 2L and has been maintaining good o2 sats. Will continue to monitor.
[2021-11-26] VITALS (10 sets, daily range): BP systolic 113–142; BP diastolic 60–83; PULSE 61–95; RESP 18–20; TEMP 36.5–36.7; O2SAT 90–95; BMI 16.2
--- NOTE | 2021-11-26 03:56 | PC.NURSE ---
pt has rested intermittently t/o shift, has remained on 2L NC with O2 sats 91-94%, HR 67-74, no complaints of pain or SOA this shift, ambulating in room independently
[2021-11-26 08:22] LABS: Basophils # 0.1 K/mm3 (0-0.2); Basophils % 0.8 % (0.1-2.0); Hematocrit 41.7 % (42.0-52.0); Hemoglobin 14.1 g/dL (14.1-18.0); Lymphocytes # 0.6 K/mm3 (0.7-4.5); Lymphocytes % 4.3 % (10-50); Mean Corpuscular HGB Conc 33.8 g/dL (31.8-35.4); Mean Corpuscular Hemoglobin 33.6 pg (27.0-31.2); Mean Corpuscular Volume 99.3 fl (80-94); Mean Platelet Volume 7.7 fl (7.4-10.4); Monocytes # 0.4 K/mm3 (0.1-1.0); Neutrophils # 13.6 K/mm3 (1.8-7.8); Platelet Count 573 K/mm3 (142-424); Red Cell Distribution Width 13.3 % (11.5-17.5); White Blood Count 14.8 K/mm3 (4.8-10.8)
[2021-11-26 08:25] LABS: MANUAL DIFFERENTIAL MANUAL DIFFERENTIAL (MANUAL DIFF)
[2021-11-26 08:34] LABS: Chloride 98 mmol/L (98-107); Potassium 4.4 mmoL/L (3.5-5.1); Sodium 137 mmol/L (136-145)
[2021-11-26 08:37] LABS: Anion Gap 9.4 mEq/L (5-15); Carbon Dioxide 34 mmol/L (22.0-30.0)
[2021-11-26 08:38] LABS: Calcium 9.8 mg/dl (8.4-10.2); Glucose 143 mg/dl (74-100)
[2021-11-26 08:43] LABS: Blood Urea Nitrogen 19 mg/dl (9-20); Creatinine Clearance Estimated 62 mL/min (50-200); Estimated Glomerular Filt Rate 136 ml/min (>60); GFR (African American) 165 ML/MIN (>60)
[2021-11-26 10:37] LABS: Lymphocytes % 8 % (10-50); Monocytes % 2 % (2-9); Neutrophils % 90 % (42-76); Platelet Estimate Slight Increase; Total Cells Counted 100
[2021-11-26 10:38] LABS: RBC Morphology Normal
--- NOTE | 2021-11-26 15:24 | HMH.ACPN2 ---
Internal Medicine - PN: Subj *Date: 11/26/21 *Time: 15:27 Interval history: continues to require 02 dyspnea with exertion bc neg sputum=gram neg rods, final id pending Exam Vital signs and Labs for Last 24 Hours: Temp Pulse Resp BP Pulse Ox 97.7 F 66 19 113/62 91 L 11/26/21 08:00 11/26/21 13:32 11/26/21 08:00 11/26/21 08:00 11/26/21 13:32 Laboratory Results - last 24 hr 11/26/21 07:25: WBC 14.8 H D, RBC 4.20 L, Hgb 14.1, Hct 41.7 L, MCV 99.3 H, MCH 33.6 H, MCHC 33.8, RDW 13.3, Plt Count 573 H, MPV 7.7, Neut % (Auto) 92.0 H, Lymph % (Auto) 4.3 L, [place] % (Auto) 3.0, Eos % (Auto) 0.0 L, Baso % (Auto) 0.8, Neut # (Auto) 13.6 H, Lymph # (Auto) 0.6 L, [place] # (Auto) 0.4, Eos # (Auto) 0.0, Baso # (Auto) 0.1, Total Counted 100, Neutrophils % (Manual) 90 H, Lymphocytes % (Manual) 8 L, Monocytes % (Manual) 2, Platelet Estimate Slight increase, RBC Morphology Normal 11/26/21 07:25: Sodium 137, Potassium 4.4, Chloride 98, Carbon Dioxide 34 H, Anion Gap 9.4, BUN 19, Creatinine 0.60 L, Estimated Creat Clear 62, Estimated GFR 136, Est GFR ( Amer) 165, Glucose 143 H, Calcium 9.8 I & O for Last 24 hours: Intake & Output 11/23/21 11/24/21 11/25/21 11/26/21 23:59 23:59 23:59 23:59 Intake Total 0 / 2320 1840 / 1840 1320 / 1320 460 / 460 Balance 2160 / 2320 1840 / 1840 1320 / 1320 460 / 460 Weight 122 lb 15.934 oz 123 lb 11.2 oz 126 lb 9.6 oz 127 lb Microbiology Reports for the Last 24 Hours: Microbiology 11/22/21 10:16 Sputum - Expectorated Sputum Gram Stain - Final 11/22/21 10:16 Sputum - Expectorated Sputum Sputum Culture - Preliminary Gram Negative Rods - Constitutional no acute distress, thin, chronically ill appearing - *Routine HEENT Exam Head: Present: normocephalic Eye: Present: EOMI, PERRL ENT: Present: mucous membranes moist - *Routine Neck Exam Present: supple. Absent: lymphadenopathy - *Routine Respiratory Exam Present: prolonged expiratory phase, rhonchi, crackles, distant breath sounds, diminished air movement. Absent: accessory muscle use, respiratory distress - *Routine Cardiovascular Exam Present: RRR - *Routine Abdominal Exam Present: soft, normoactive bowel sounds. Absent: tenderness - *Routine Extremities Exam Absent: cyanosis, clubbing, edema - *Routine Skin Exam Present: warm. Absent: rash - *Routine Neurological Exam Present: alert, oriented X3 Assessment and Plan (1) COPD (chronic obstructive pulmonary disease) with acute bronchitis Status: Acute Category: Medical Code(s): J44.0 - Chronic obstructive pulmonary disease with (acute) lower respiratory infection; J20.9 - Acute bronchitis, unspecified (2) Tobacco use Status: Chronic Category: Social Hx Code(s): Z72.0 - Tobacco use (3) Low body mass index (BMI) Status: Acute Category: Medical - Assessment and plan all Dx Assessment and Plan for all problems:: will continue regimen await id of sputum bacteria
[2021-11-27 02:00] VITALS: PULSE 66
[2021-11-27 02:10] VITALS: PULSE 65
[2021-11-27 04:01] VITALS: BP 130/70; PULSE 60; RESP 18; TEMP 36.7; O2SAT 95
--- NOTE | 2021-11-27 04:05 | PC.NURSE ---
pt has rested well this shift, has remained on 2L NC t/o shift, O2 sats 94-95%, no complaints of pain or SOA, has ambulated independently to , afebrile t/o shift
[2021-11-27 04:43] VITALS: BMI 16.6
[2021-11-27 06:24] VITALS: PULSE 69; PULSE 73; O2SAT 96
[2021-11-27 07:00] LABS: Basophils % 0.2 % (0.1-2.0); Eosinophils % 0.1 % (0.1-12.0); Hematocrit 41.2 % (42.0-52.0); Hemoglobin 13.5 g/dL (14.1-18.0); Lymphocytes # 0.6 K/mm3 (0.7-4.5); Mean Corpuscular HGB Conc 32.8 g/dL (31.8-35.4); Mean Corpuscular Hemoglobin 31.3 pg (27.0-31.2); Mean Corpuscular Volume 95.3 fl (80-94); Mean Platelet Volume 6.9 fl (7.4-10.4); Monocytes # 0.6 K/mm3 (0.1-1.0); Monocytes % 3.9 % (1.7-9.3); Neutrophils # 14.1 K/mm3 (1.8-7.8); Neutrophils % 91.9 % (37.0-80.0); Platelet Count 559 K/mm3 (142-424); Red Blood Count 4.32 M/mm3 (4.60-6.20); Red Cell Distribution Width 12.9 % (11.5-17.5); White Blood Count 15.3 K/mm3 (4.8-10.8)
[2021-11-27 07:03] LABS: MANUAL DIFFERENTIAL MANUAL DIFFERENTIAL (MANUAL DIFF)
[2021-11-27 07:04] LABS: Chloride 100 mmol/L (98-107); Potassium 4.6 mmoL/L (3.5-5.1); Sodium 137 mmol/L (136-145)
[2021-11-27 07:07] LABS: Anion Gap 7.6 mEq/L (5-15); Blood Urea Nitrogen 25 mg/dl (9-20); Carbon Dioxide 34 mmol/L (22.0-30.0); Creatinine Clearance Estimated 63 mL/min (50-200); Estimated Glomerular Filt Rate 136 ml/min (>60); GFR (African American) 165 ML/MIN (>60)
[2021-11-27 07:08] LABS: Calcium 9.4 mg/dl (8.4-10.2); Glucose 127 mg/dl (74-100)
[2021-11-27 07:35] LABS: Lymphocytes % 3 % (10-50); Monocytes % 1 % (2-9); Neutrophils % 95 % (42-76); Total Cells Counted 100
[2021-11-27 07:36] LABS: Anisocytosis 1+; Platelet Estimate Moderate Increase; Poikilocytosis 1+
[2021-11-27 08:00] VITALS: BP 139/74; PULSE 88; RESP 19; TEMP 37.1; O2SAT 94
--- NOTE | 2021-11-27 08:28 | XR_ITS ---
FINAL REPORT CLINICAL HISTORY: PNM COMPARISON: November 23, 2021 FINDINGS: A single portable view of the chest was obtained. The heart size and pulmonary vascularity are within normal limits. The mediastinum is within normal limits. There is hyperinflation consistent with COPD. There is mild pulmonary scarring. There is a chronic right 6th posterior rib fracture. There are postoperative changes in the lower cervical spine. IMPRESSION: Hyperinflation consistent with COPD. Mild pulmonary scarring. Reviewed, Interpreted and Dictated by Leon Berry III, MD Transcribed by Olivia De Authenticated and [facility]
--- NOTE | 2021-11-27 08:33 | PC.NURSE ---
Addendum entered by Vikas Fall RN 11/27/21 10:53: o2 sat was at rest Original Note: pt is 85% on RA
[2021-11-27 09:57] VITALS: PULSE 61; PULSE 66; O2SAT 93
--- NOTE | 2021-11-27 11:22 | HMH.DCSUM ---
General - General Admission date:: 11/22/21 Discharge date: 11/27/21 HPI HPI: this patient presented to the ed -patient is a 61-year-old male presenting to the emergency department chief complaint of shortness of breath cough. Patient was recently seen emergency department on the fourth for similar complaints. Patient is a past medical history of COPD, and has inhalers at home. On the fourth patient was diagnosed with rhinovirus, given an inhalation, as well as methylprednisone and discharged with an albuterol inhaler. Patient states that today his albuterol inhaler was not helping him enough, and he is feeling short of air even with walking short distances so he came to the emergency department. Denies nausea vomiting, chest pain, fever, body aches, additional complaints. patient 61-year-old male presenting to the emergency department with chief complaint of shortness of air. Differential diagnosis for this patient includes COVID-19, influenza, viral URI, COPD exacerbation, pneumothorax, among others. Given this plan to order EKG, VBG, CBC, CMP, chest x-ray. Respiratory was called to give patient a continuous DuoNeb inhalation, patient was given 12 ml of ipratropium and albuterol placed as well as hypertonic saline, in hopes of loosening any thick secretions as well as methylprednisone. Patient did not have significant improvement after these interventions. This x-ray showed hyperexpansion, but no signs of a focal consolidation. VBG showed some hypoixa and hypercapnea without significant acidosis. Patient was nottachycardic and EKG showed sinus rhythm without ST elevation or depression. Patient was reassessed and did not have significant provement in wheezing, and continued to require 3 L of oxygen to saturate in the 90s. Patient history of COPD, also concern for atypical pneumonia, will place patient on azithromycin. Discussed patient with hospitalist, for admission. Will admit patient. Hospital Course Hospital Course: pt with slow but improved breathing with prod sputum which showed gram neg rods- cxr with copd changes and dictation pending but overall pt improved and wishes to try at home - pt was seen by pul medicine while in [id number] male current smoker greater than [id number] smoking history. On Anoro inhaler at home. No sick contacts, grandkids diagnosed with RSV and rhinovirus. Presented with gradually worsening respiratory distress. Chest x-ray no acute pulmonary infiltrates. Auscultation bilateral diffuse wheezing. New oxygen requirement now needing 3 L nasal cannula, saturating 90% this morning. Plan: -Continue nasal cannula can supplementation to maintain O2 saturation goal of 90% and above -Initiate DuoNebs every 4 hours along with budesonide every 12 scheduled -Prednisone 40 mg daily x5 days -Change azithromycin to levofloxacin 750 mg oral daily x5 days. pt tolerating diet and activity at this time - Objective Vital signs: Temp Pulse Resp BP Pulse Ox 98.7 F 61 19 139/74 93 L 11/27/21 08:00 11/27/21 09:57 11/27/21 08:00 11/27/21 08:00 11/27/21 09:57 no acute distress, thin, cooperative - *Routine HEENT Exam Head: Present: normocephalic Eye: Present: EOMI, PERRL ENT: Present: mucous membranes moist - *Routine Neck Exam Absent: JVD - *Routine Respiratory Exam Present: decreased breath sounds, wheezes - *Routine Cardiovascular Exam Present: RRR, murmur - *Routine Abdominal Exam Present: soft - *Routine Extremities Exam Absent: calf tenderness - *Routine Skin Exam Present: intact - *Routine Neurological Exam Present: alert, CN II-XII intact - Routine Psychiatric Exam Present: normal affect Results Labs on day of discharge: Labs from last 24 hours 11/27/21 11/27/21 06:04 06:04 WBC 15.3 H RBC 4.32 L Hgb 13.5 L Hct 41.2 L MCV 95.3 H MCH 31.3 H MCHC 32.8 RDW 12.9 Plt Count 559 H MPV 6.9 L Neut % (Auto) 91.9 H Lymph
--- NOTE | 2021-11-28 16:17 | CARE MANAGER ---
Attempted psot-discharge phone call and patient did not answer the phone. The mailbox states it was full so could not leave a message.
== END 2021-11-27 12:06 | disposition home or self-care (01) | DRG 177 ==
LOC: ER 10:34 → 2ND 12:46
PROVIDERS: Nurse Practitioner Family; Admitting Provider Emergency Medicine; Emergency Provider Emergency Medicine; PCP Emergency Medicine; Visit Provider Emergency Medicine
DX: J15.6 Pneumonia due to other Gram-negative bacteria (principal); J96.02 Acute respiratory failure with hypercapnia; J44.0 Chronic obstructive pulmonary disease with (acute) lower respiratory infection; J44.1 Chronic obstructive pulmonary disease with (acute) exacerbation; J20.9 Acute bronchitis, unspecified; F17.210 Nicotine dependence, cigarettes, uncomplicated; E78.5 Hyperlipidemia, unspecified; G62.9 Polyneuropathy, unspecified
CPT/HCPCS: 36415; 71045; 80048; 80053; 82803; 83605; 85007; 85025; 87040; 87070; 87077; 87186; 87205; 93005; 94640; 94760; 94761; 99285; C9803; J0456; U0003; U0005

== ENCOUNTER 2022-02-24 19:25 | Observation (INO) | payer MEDICARE, MEDICAID, SELFPAY ==
[2022-02-24] VITALS (7 sets, daily range): BP systolic 96–118; BP diastolic 46–60; PULSE 71–97; RESP 22–26; TEMP 36.8–36.9; O2SAT 66–94; BMI 18.2; BMI 16.2
--- NOTE | 2022-02-24 19:45 | PC.NURSE ---
RT at BS to obtain ABG and administer breathing treatment
--- NOTE | 2022-02-24 19:54 | CT_ITS ---
PROCEDURE INFORMATION: Exam: CTA Chest With Contrast Exam date and time: 02/24/2022 8:23 PM Age: 61 years old Clinical indication: Shortness of breath and other: Chest pain; Additional info: yonis TAYLOR TECHNIQUE: Imaging protocol: Computed tomographic angiography of the chest with contrast. 3D rendering (Not supervised by radiologist): MIP and/or 3D reconstructed images were created by the technologist. Radiation optimization: All CT scans at this facility use at least one of these dose optimization techniques: automated exposure control; mA and/or kV adjustment per patient size (includes targeted exams where dose is matched to clinical indication); or iterative reconstruction. Contrast material: ISOVUE 370; Contrast volume: 70 ml; Contrast route: INTRAVENOUS (IV); COMPARISON: CT CHEST WO CON 01/19/2020 1:40 PM FINDINGS: Pulmonary arteries: Normal. No pulmonary emboli. Aorta: No aortic aneurysm. No aortic dissection. Lungs: Advanced emphysema with patchy nodular opacities within the lingula, right middle lobe, and bilateral lower lobes. Pleural spaces: No pneumothorax. No pleural effusion. Heart: No cardiomegaly. No pericardial effusion. Lymph nodes: Enlarged mediastinal lymph nodes measuring up to 12 mm. Spleen: There are multiple splenic calcifications likely on the basis of prior granulomatous exposure. Bones/joints: No acute fracture. Soft tissues: No significant swelling. IMPRESSION: Advanced emphysema with patchy nodular opacities within the lingula, right middle lobe, and bilateral lower lobes which is nonspecific and may be infectious or inflammatory however follow-up to radiographic clearance is recommended to rule out underlying malignancy.
--- NOTE | 2022-02-24 19:54 | XR_ITS ---
PROCEDURE INFORMATION: Exam: XR Chest Exam date and time: 02/24/2022 8:12 PM Age: 61 years old Clinical indication: Shortness of breath and other: Chest pain; Additional info: yonis TAYLOR TECHNIQUE: Imaging protocol: Radiologic exam of the chest. Views: 2 views. COMPARISON: CR XR CHEST PORTABLE 11/27/2021 9:43 AM FINDINGS: Lungs: Patchy opacity within the right middle lobe, lingula, and within the posteroinferior lower lobes bilaterally. Pleural spaces: No pneumothorax. Heart/Mediastinum: No cardiomegaly. Bones/joints: No acute fracture. IMPRESSION: Patchy opacity within the right middle lobe, lingula, and within the posteroinferior lower lobes bilaterally which is nonspecific but may be infectious or inflammatory. Follow-up to radiographic clearance is recommended.
--- NOTE | 2022-02-24 19:54 | ECG_ITS ---
APPROVED REPORT Exam: Resting ECG HR:92 bpm ECG Measurements Heart Rate 92 AXES NM 104 P 74 QRSd 94 QRS 80 QT 351 T 88 QTc 401 Conclusion SINUS RHYTHM WITH SHORT NM INTERVAL NONSPECIFIC T-WAVE ABNORMALITY BORDERLINE ECG UNCONFIRMED REPORT Electronically signed by : Alli Fitzgerald MD 02/26/2022 22:38:38
[2022-02-24 19:58] LABS: ABG Base Excess -0.7 mmol/L (-2.4-2.3); ABG HCO3 24.8 mmhg (22.0-26.0); ABG Oxygen Saturation 95 % (90-100); ABG PCO2 45.8 mmhg (35.0-45.0); ABG PH 7.35 mmol/L (7.35-7.45); ABG PO2 72.5 mmhg (80-100); ABG TCO2 26.2 mmhg (23-27); Allen's Test Y; Oxygen 4 %; Source Right Radial
[2022-02-24 20:05] LABS: Basophils # 0.1 K/mm3 (0-0.2); Basophils % 0.3 % (0.1-2.0); Eosinophils # 0.2 K/mm3 (0.0-0.4); Eosinophils % 0.7 % (0.1-12.0); Hematocrit 43.6 % (42.0-52.0); Hemoglobin 14.1 g/dL (14.1-18.0); Lymphocytes # 0.8 K/mm3 (0.7-4.5); Lymphocytes % 3.5 % (10-50); Mean Corpuscular HGB Conc 32.4 g/dL (31.8-35.4); Mean Corpuscular Hemoglobin 32.5 pg (27.0-31.2); Mean Corpuscular Volume 100.5 fl (80-94); Mean Platelet Volume 7.7 fl (7.4-10.4); Monocytes # 0.8 K/mm3 (0.1-1.0); Monocytes % 3.7 % (1.7-9.3); Neutrophils # 20.1 K/mm3 (1.8-7.8); Neutrophils % 91.9 % (37.0-80.0); Platelet Count 520 K/mm3 (142-424); Red Blood Count 4.34 M/mm3 (4.60-6.20); Red Cell Distribution Width 13.7 % (11.5-17.5)
[2022-02-24 20:06] LABS: White Blood Count 21.9 K/mm3 (4.8-10.8)
[2022-02-24 20:08] LABS: Coronavirus 19, PCR Not Detected (NotDetected); Influenza A, PCR Not Detected (NotDetected)
[2022-02-24 20:08] LABS: MANUAL DIFFERENTIAL MANUAL DIFFERENTIAL (MANUAL DIFF)
[2022-02-24 20:09] LABS: Influenza B, PCR Not Detected (NotDetected)
[2022-02-24 20:10] LABS: Lactic Acid 1.1 mmol/L (0.7-2.1)
[2022-02-24 20:12] LABS: Anion Gap 12.5 mEq/L (5-15); Blood Urea Nitrogen 21 mg/dl (9-20); Calcium 8.9 mg/dl (8.4-10.2); Carbon Dioxide 28 mmol/L (22.0-30.0); Chloride 93 mmol/L (98-107); Creatinine Clearance Estimated 69 mL/min (50-200); Estimated Glomerular Filt Rate 98 ml/min (>60); GFR (African American) 118 ML/MIN (>60); Glucose 133 mg/dl (74-100); Magnesium 1.6 mg/dl (1.6-2.3); Potassium 4.5 mmoL/L (3.5-5.1); Sodium 129 mmol/L (136-145)
--- NOTE | 2022-02-24 20:15 | HMH.EDSOB ---
Discharge Plan Disposition Patient Disposition: Admitted As Inpatient Chief Complaint: Shortness of Breath/Dyspnea Prescriptions Prescriptions: No Action gabapentin 800 mg tablet 800 mg PO TID oxycodone 15 mg tablet 15 mg PO QIDP PRN (Reason: Moderate Pain) albuterol sulfate 90 mcg/actuation HFA aerosol inhaler 2 inh IH QID PRN (Reason: shortness of breath or wheezing) 90 Days Qty: 8.5 2RF ipratropium-albuterol 0.5 mg-3 mg(2.5 mg base)/3 mL solution for nebulization 3 ml IH QID PRN (Reason: shortness of breath or wheezing) 90 Days Qty: 360 3RF duloxetine 60 mg capsule,delayed release(DR/EC) 60 mg PO BID Qty: 180 0RF atorvastatin 10 MG tablet 10 mg PO HS tizanidine 4 MG tablet 4 mg PO TIDP PRN (Reason: Muscle Spasm) carvedilol 3.125 MG tablet 3.125 mg PO BID diclofenac sodium 20 GM gel 2 g TP QID Rx Instructions: apply to single elbow, wrist or hand; for hand includes palm/fingers/back of hand sacubitril-valsartan 1 EACH tablet 1 each PO BID lidocaine 1 EACH adhesive patch,medicated 1 each TD DAILY lifitegrast 1 EACH dropperette 1 drp OP BID clonazepam [Klonopin] 0.5 mg tablet 0.5 mg PO BID Anoro Ellipta 62.5-25 mcg/actuation blister with device 1 inh IH DAILY Discharge ED Provider: Rasheed Wadsworth Resp/SOB HPI General Chief Complaint: Shortness of Breath/Dyspnea Stated Complaint: weakness and soa Time Seen by Provider: 02/24/22 20:15 Mode of Arrival: Ambulatory Source of Information: Patient and Medical Record Limitations: No Limitations Description of Symptoms (Recalled from ER Triage Doc. by RN): Per pt, he has been feeling short of air and excessively weak since yesterday evening. States that he has been having intermittent body aches, but describes the bodyaches as being localized to his chest. Also c/o chills. History of Present Illness hx of sob with weakness and achey over the last 2 days - MD Complaint: shortness of breath Onset (ago): day(s) Severity: moderate Consistency/Duration: constant Known history of: COPD Associated symptoms: cough Treatment prior to arrival: none Related Data Home oxygen amount: 2 liters Home Medications Medication Instructions Recorded Confirmed gabapentin 800 mg tablet 800 mg PO TID Pain 03/03/20 02/24/22 oxycodone 15 mg tablet 15 mg PO QIDP PRN Moderate Pain 03/03/20 02/24/22 atorvastatin 10 mg tablet 10 mg PO HS Cholesterol 11/22/21 02/24/22 carvedilol 3.125 mg tablet 3.125 mg PO BID Hypertension 11/22/21 02/24/22 diclofenac sodium 1 % topical gel 2 g topical QID discomfort 11/22/21 02/24/22 lidocaine 5 % topical patch 1 each transdermal DAILY Pain 11/22/21 02/24/22 lifitegrast 5 % eye drops in a 1 drp ophthalmic (eye) BID DRY EYE 11/22/21 02/24/22 dropperette sacubitril 24 mg-valsartan 26 mg 1 each PO BID CHF 11/22/21 02/24/22 tablet tizanidine 4 mg tablet 4 mg PO TIDP PRN Muscle Spasm 11/22/21 02/24/22 clonazepam 0.5 mg tablet (Klonopin) 0.5 mg PO BID Anxiety 02/24/22 02/24/22 umeclidinium 62.5 mcg-vilanterol 1 inh inhalation DAILY COPD 02/24/22 02/24/22 25 mcg/actuation powdr for inhalation (Anoro Ellipta) Previous Rx's Medication Instructions Recorded albuterol sulfate 90 mcg/actuation 2 inh inhalation QID PRN shortness 12/27/21 aerosol inhaler of breath or wheezing 90 days #8.5 grams ipratropium 0.5 mg-albuterol 3 mg 3 ml inhalation QID PRN shortness 12/27/21 (2.5 mg base)/3 mL nebulization of breath or wheezing 90 days #360 soln mL duloxetine 60 mg capsule,delayed 60 mg PO BID Anxiety #180 caps 01/05/22 release Allergies Allergy/AdvReac Type Severity Reaction Status Date / Time methocarbamol [From ROBAXIN] Allergy Unknown Verified 12/27/21 13:29 pregabalin [From LYRICA] Allergy Unknown Verified 12/27/21 13:29 ibuprofen AdvReac Verified 12/27/21 13:29 PFSH PFSH Medical History (Updated 12/27/21 @ 13:54 by Cait Marcelo MD) Ch
[2022-02-24 20:17] LABS: C-Reactive Protein 231.1 mg/L (0-4)
[2022-02-24 20:23] LABS: NT Pro Brain Natriuretic Pep. 687 pg/mL (0-125)
[2022-02-24 20:24] LABS: Ammonia 11 umol/L (9-30)
[2022-02-24 20:26] LABS: Troponin I 0.13 ng/ml (0.00-0.034)
[2022-02-24 20:28] LABS: Lymphocytes % 5 % (10-50); Monocytes % 2 % (2-9); Neutrophils % 84 % (42-76); Total Cells Counted 100
[2022-02-24 20:29] LABS: Macrocytosis 1+; Platelet Estimate Slight Increase
[2022-02-24 20:30] LABS: Procalcitonin 0.173 ng/mL (0.0-2.0)
[2022-02-24 20:31] LABS: Erythrocyte Sedimentation Rate 36 mm/hr (0-20)
--- NOTE | 2022-02-24 21:24 | PC.NURSE ---
Rounded on pt. No needs or complaints voiced at this time. Call light within reach.
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
--- NOTE | 2022-02-24 21:41 | PC.NURSE ---
at speaking with pt about plan to admit
--- NOTE | 2022-02-24 22:46 | PC.NURSE ---
PT ARRIVED TO FLOOR VIA W/C @ [id number]
[2022-02-24 23:29] LABS: Troponin I 0.16 ng/ml (0.00-0.034)
[2022-02-25] VITALS (11 sets, daily range): BP systolic 99–124; BP diastolic 58–69; PULSE 68–80; RESP 16–20; TEMP 36.5–37.2; O2SAT 89–96; BMI 16.0
--- NOTE | 2022-02-25 06:04 | PC.NURSE ---
Pt alert and oriented x 4, but fatigued. Pt has slept well. Monitoring via tele and continuous pulse ox. Pt has stayed >/= 90% on 3 L NC. Lung sounds - diminished w/ expiratory wheezing. No c/o of chest pain. Medicating per AUG. IV infusing per order. Call light in reach. Bed alarm on for safety.
[2022-02-25 07:50] LABS: Anion Gap 10.5 mEq/L (5-15); Blood Urea Nitrogen 17 mg/dl (9-20); Calcium 8.7 mg/dl (8.4-10.2); Carbon Dioxide 27 mmol/L (22.0-30.0); Chloride 97 mmol/L (98-107); Chol/HDL Ratio 3.2 (1-3.5); Cholesterol 114 mg/dl (140-200); Creatinine Clearance Estimated 61 mL/min (50-200); Estimated Glomerular Filt Rate 168 ml/min (>60); GFR (African American) 203 ML/MIN (>60); Glucose 148 mg/dl (74-100); HDL Cholesterol 36 mg/dl (40-60); Magnesium 1.7 mg/dl (1.6-2.3); Potassium 4.5 mmoL/L (3.5-5.1); Sodium 130 mmol/L (136-145); Triglycerides 77 mg/dl (30-150); VLDL Cholesterol 15 mg/dL (0-40)
[2022-02-25 07:51] LABS: Basophils % 0.2 % (0.1-2.0); Eosinophils % 0.1 % (0.1-12.0); Hemoglobin 14.3 g/dL (14.1-18.0); Lymphocytes # 0.8 K/mm3 (0.7-4.5); Lymphocytes % 3.2 % (10-50); Mean Corpuscular HGB Conc 31.9 g/dL (31.8-35.4); Mean Corpuscular Hemoglobin 32.3 pg (27.0-31.2); Mean Corpuscular Volume 101.3 fl (80-94); Mean Platelet Volume 8.5 fl (7.4-10.4); Monocytes # 0.5 K/mm3 (0.1-1.0); Neutrophils # 24.4 K/mm3 (1.8-7.8); Neutrophils % 94.5 % (37.0-80.0); Platelet Count 522 K/mm3 (142-424); Red Blood Count 4.44 M/mm3 (4.60-6.20); Red Cell Distribution Width 13.6 % (11.5-17.5); White Blood Count 25.8 K/mm3 (4.8-10.8)
[2022-02-25 07:54] LABS: MANUAL DIFFERENTIAL MANUAL DIFFERENTIAL (MANUAL DIFF)
[2022-02-25 08:01] LABS: Direct LDL Cholesterol 47.12 mg/dL (100-129)
--- NOTE | 2022-02-25 08:16 | P.CONPHA_ITS ---
[facility] Pharm[facility] VTE Monitoring Patient Demographics Admission date: 02/24/22 Report Date: 02/25/22 Time: 08:16 Patient Allergies methocarbamol [From ROBAXIN] Allergy (Unknown, Verified 12/27/21 13:29) pregabalin [From LYRICA] Allergy (Unknown, Verified 12/27/21 13:29) ibuprofen Adverse Reaction (Verified 12/27/21 13:29) Height: 1.88 m Weight: 56.699 kg Current Active Problems (Updated 02/24/22 @ 23:25 by Jade Ocampo RN) Acute exacerbation of COPD with asthma (Acute) SIRS (systemic inflammatory response syndrome) (Acute) Elevated troponin (Acute) VTE Risk Labs: VTE Related Lab Results Hgb 14.3 g/dL (14.1-18.0) 02/25/22 07:15 Hct 45.0 % (42.0-52.0) 02/25/22 07:15 Plt Count 522 K/mm3 (142-424) H 02/25/22 07:15 BUN 17 mg/dl (9-20) 02/25/22 07:15 Creatinine 0.50 mg/dl (0.66-1.25) L D 02/25/22 07:15 Estimated Creat Clear 61 mL/min (50-200) 02/25/22 07:15 VTE Score: 5 VTE Risk Level: Low Risk Prophylaxis VTE Prophylaxis Ordered?: Yes Types of VTE Prophylaxis: TEDS Knee High Location of Applied Device: Bilateral Lower Extremeties
[2022-02-25 08:40] LABS: Lymphocytes % 3 % (10-50); Monocytes % 1 % (2-9); Neutrophils % 96 % (42-76); Platelet Estimate Slight Increase; Total Cells Counted 100
[2022-02-25 08:41] LABS: Macrocytosis 1+
--- NOTE | 2022-02-25 09:59 | EXP.HP ---
History of Present Illness *Admission Date: 02/24/22 *Reason for visit:: sob *History of present illness: this patient presented to the ed with sob -pt with no chest pain but has sob which was more than expected for his copd - this has increased over the last few days - Per pt, he has been feeling short of air and excessively weak since yesterday evening. States that he has been having intermittent body aches, but describes the bodyaches as being localized to his chest. Also c/o chills.pt was found to have acute copd and elevated trop- pt was admitted for eval and treatment and card consult [facility] Medical History (Updated 02/24/22 @ 23:25 by Jade Ocampo RN) Chest pain Dyspnea Emphysema/COPD Surgical History H/O cardiac catheterization H/O cervical spine surgery Family History (Updated 02/24/22 @ 23:22 by Jade Ocampo RN) Family history of acute congestive heart failure Mother Father Lung cancer Mother Father Social History (Updated 02/24/22 @ 23:22 by Jade Ocampo RN) Smoking Status: Current every day smoker tobacco type: cigarettes packs per day: 1 second hand exposure: Yes alcohol intake: current substance use type: denies use current occupational status: disabled Travel in the last 8 weeks: None household members: children housing: house marital status: current occupational exposures/hazards: No pets and animals: No caffeine: Yes Review of Systems Review of Systems Review of systems:: pertinent systems reviewed and negative unless documented below Constitutional Constitutional: Reports fatigue and Denies headache(s) Eyes Eyes: Denies diplopia and Denies loss of vision ENT Ears, Nose, Mouth, and Throat: Denies headache(s) *Cardiovascular Cardiovascular: Reports dyspnea and Reports dyspnea on exertion *Respiratory Respiratory: Reports as per HPI, Reports dyspnea and Reports dyspnea on exertion *Gastrointestinal Gastrointestinal: Denies change in bowel habits *Genitourinary Genitourinary: Denies hematuria *Musculoskeletal Musculoskeletal: Denies joint swelling Integumentary/Breasts Skin/Breast: Denies lesions *Neurologic Neurologic: Denies headache(s) and Denies loss of vision Endocrine Endocrine: Reports fatigue Meds Home Medications and Allergies Home Medications Medication Instructions Recorded Confirmed Type gabapentin 800 mg tablet 800 mg PO TID Pain 03/03/20 02/24/22 History oxycodone 15 mg tablet 15 mg PO QIDP PRN Moderate Pain 03/03/20 02/24/22 History atorvastatin 10 mg tablet 10 mg PO HS Cholesterol 11/22/21 02/24/22 History carvedilol 3.125 mg tablet 3.125 mg PO BID Hypertension 11/22/21 02/24/22 History sacubitril 24 mg-valsartan 26 mg 1 each PO BID CHF 11/22/21 02/24/22 History tablet tizanidine 4 mg tablet 4 mg PO TIDP PRN Muscle Spasm 11/22/21 02/24/22 History duloxetine 60 mg capsule,delayed 60 mg PO BID Anxiety #180 caps 01/05/22 02/24/22 Rx release umeclidinium 62.5 mcg-vilanterol 1 inh inhalation DAILY COPD 02/24/22 02/24/22 History 25 mcg/actuation powdr for inhalation (Anoro Ellipta) albuterol sulfate 90 mcg/actuation 2 inh inhalation QIDP PRN 02/25/22 02/25/22 History aerosol inhaler shortness of breath or wheezing ipratropium 0.5 mg-albuterol 3 mg 3 ml inhalation QIDP PRN shortness 02/25/22 02/25/22 History (2.5 mg base)/3 mL nebulization of breath or wheezing soln New Prescriptions to Start Prescriptions: Allergies Allergy/AdvReac Type Severity Reaction Status Date / Time methocarbamol [From ROBAXIN] Allergy Unknown Verified 12/27/21 13:29 pregabalin [From LYRICA] Allergy Unknown Verified 12/27/21 13:29 ibuprofen AdvReac Verified 12/27/21 13:29 Exam Data for Last 24 hours Vital signs and Labs for Last 24 Hours: Temp Pulse Resp BP Pulse Ox FiO2 97.7 F 70 18 99/58 L 89 L 32 02/25/22 08:00 02/25/22 08:00 02/25/22 0
[2022-02-25 11:32] LABS: Troponin I 0.06 ng/ml (0.00-0.034)
--- NOTE | 2022-02-25 12:47 | HMH.PHAINT1 ---
Pharmacy Intervention Comments: MEDICATION RECONCILIATION COMPLETED ON PATIENT USING EXTERNAL FILL HISTORY FROM PHARMACY. -MARGARITA LEO, AMALIAD
--- NOTE | 2022-02-25 13:57 | PC.NURSE ---
pt had 1 unmeasured void
--- NOTE | 2022-02-25 15:37 | PC.NURSE ---
PT IS AOX4, ABLE TO MAKE NEEDS KNOWN TO STAFF. O2 HAS FLUCTUATED FROM 88%-92% ON 4LNC. HE HAS RESTED IN BED FOR MOST OF SHIFT. HAS DENIED CHEST PAIN THIS SHIFT.
--- NOTE | 2022-02-25 17:29 | PC.NURSE ---
PT O2 SATS HAVE REMAINED STEADY AT 94%. TITRATED O2 TO 3LNC
[2022-02-26] VITALS (25 sets, daily range): BP systolic 104–161; BP diastolic 54–81; PULSE 58–94; RESP 16–21; TEMP 36.4–36.9; O2SAT 91–96; BMI 16.3; BMI 16.2
--- NOTE | 2022-02-26 | IR_ITS ---
APPROVED REPORT Patient Location: Inpatient PROCEDURES Left heart catheterization Left ventriculogram Selective coronary angiogram INDICATION Numerous risk factors for coronary disease with suspected unstable angina Informed consent was obtained prior to the procedure. COMPLICATIONS NONE Estimated Blood Loss: LESS THAN 10 ML TECHNIQUE One percent lidocaine used to anesthetize the right anterior aspect of the wrist. The right radial artery was accessed via the Seldinger technique. A 6 Mosotho sheath was placed in the right radial artery. 2.5 mg of verapamil, 800 mcg of nitroglycerin, 1mg Lidocaine and 5000 U Heparin were given through the arterial sheath. The papa catheter was also used to perform left heart catheterization, left ventriculogram and selective coronary angiogram. At the end of the procedure the sheath was removed good hemostasis was achieved using Traclet band, patient was transferred to the postop holding area in stable condition. ANGIOGRAPHIC RESULTS The left main artery Normal The left anterior descending artery Normal The circumflex artery Nondominant normal The right coronary artery Dominant normal The PINZON ventriculogram reveals Normal 65% The left ventricular end-diastolic pressure Elevated at 25 mm IMPRESSION Normal coronary arteries Normal ejection fraction Elevated LVEDP consistent with diastolic dysfunction PLAN 1. Symptoms most likely stemming from advanced lung disease although treatment of diastolic dysfunction is warranted. Also recommend pulmonology consult Electronically signed by : Anthony Arroyo MD 02/26/2022 15:30:23
--- NOTE | 2022-02-26 05:36 | CA_ITS ---
APPROVED REPORT EXAM: Comprehensive 2D, Doppler, and color-flow Echocardiogram Aquaculture Worker: Mala Kwong CRT Ht: 6 ft 2 in Wt: 125lbs BSA: 1.78 BP: 96/46 mmHg Indications: COPD, Non STEMI, Hypertension/HDD, home o2, smoker, EF 45-50% 07/05/21 2D Dimensions LVOT 2.18 cm (M/F) 1.5-2.5 LA Volume 19.30 mL LA Volume Index 10.80 mL/m2 (M/F) 16-34 M-Mode Dimensions RVDd 4.27 cm (0.9-2.6) LA Diam 2.42 cm (1.9-4.0) LVDd 4.76 cm (3.5-5.7) Ao Diam 3.67 cm (2.0-3.7) LVDs 3.63 cm (3.5-5.7) IVSd 0.73 cm (0.6-1.1) PWd 0.78 cm (0.6-1.1) EF (Teich) 47.30% FS 23.70% EDV (Teich) 105.40 mL TAPSE 3.23 (<1.7) ESV (Teich) 55.50 mL LV Diastology E Decel Time 173.00 (160-240 msec) E/A Ratio 0.98 MED E' 8.70 (< 7 cm/sec) MED A' 12.60 cm/s E'/MED E' Ratio 8.98 (>14) LAT E' 10.30 (<10 cm/sec) LAT A' 6.70 cm/s E/LAT E' Ratio 7.58 (>14) Aortic Valve AO Peak GR. 4.20 mmHg Mitral Valve MV E Max Clifford. 78.00 (40-130 cm/s) MV A Velocity 79.00 (40-130 cm/s) E/A Ratio 0.98 MV Decel. Time 173.00 (160-240 ms) MV PHT 51.00 ms Pulmonary Valve PV Peak Velocity 100.00 (50-150 cm/s) Tricuspid Valve TR P. Velocity 256.00 cm/s RAP Estimate 10.00 mmHg RVSP 36.30 mmHg Left Ventricle Left atrium is mildly enlarged, left ventricle is normal size mild concentric left ventricular hypertrophy, estimated ejection fraction 55% with no regional wall motion abnormality, diastolic parameters are inconclusive. Right Ventricle Right atrium and right ventricle are mildly enlarged with normal contractility. Aortic Valve Aortic valve is thickened and calcified without aortic stenosis or aortic insufficiency. Mitral Valve Mitral valve is grossly normal, there is mild mitral regurgitation. Tricuspid Valve Tricuspid valve grossly normal, there is mild tricuspid regurgitation, tricuspid regurgitation jet velocity is inadequate for calculation of the right ventricular systolic pressure. Pulmonic Valve Pulmonic valve is poorly visualized. Great Vessels Aortic root is normal size. Inferior vena cava is poorly visualized. Pericardium No significant pericardial effusion noted. Conclusion 1. Biatrial enlargement, normal left ventricular size, estimated ejection fraction 55% with no regional wall motion abnormality, diastolic parameters are inconclusive. 2. Mild mitral and tricuspid regurgitation. 3. No significant pericardial effusion noted. 4. Inferior vena cava is poorly visualized. Electronically signed by : Butch Parks MD 02/26/2022 15:04:08
--- NOTE | 2022-02-26 09:29 | EXP.PULM.CON ---
History of Present Illness History of present illness: Mr. Turk 61-year-old male recently started smoking again, COPD triple inhaler presented to hospital with chest discomfort followed by cough and productive phlegm. Symptoms progressive worsening for the last 3 to 4 days. Denies any sick contacts. 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 New oxygen requirements. [facility] Medical History (Updated 02/26/22 @ 12:57 by Cait Marcelo MD) Acute respiratory failure with hypoxia Chest pain Dyspnea Emphysema/COPD Non-STEMI (non-ST elevated myocardial infarction) Surgical History H/O cardiac catheterization H/O cervical spine surgery Family History (Updated 02/24/22 @ 23:22 by Jade Ocampo RN) Mother Lung cancer Family history of acute congestive heart failure Father Lung cancer Family history of acute congestive heart failure Social History (Updated 02/24/22 @ 23:22 by Jade Ocampo RN) Smoking Status: Current every day smoker tobacco type: cigarettes packs per day: 1 second hand exposure: Yes alcohol intake: current substance use type: denies use current occupational status: disabled Travel in the last 8 weeks: None household members: children housing: house marital status: current occupational exposures/hazards: No pets and animals: No caffeine: Yes Review of Systems Constitutional Constitutional: Reports fatigue, Denies headache(s), Reports poor appetite and Reports weight loss Eyes Eyes: Denies itchy eyes and Denies loss of vision ENT Ears, Nose, Mouth, and Throat: Denies headache(s), Denies lip swelling and Denies throat swelling *Cardiovascular Cardiovascular: Reports chest pain, Reports dyspnea and Reports dyspnea on exertion *Respiratory Respiratory: Reports chest congestion, Reports cough, Reports dyspnea, Reports dyspnea on exertion, Reports excessive phlegm production and Reports wheezing *Gastrointestinal Gastrointestinal: Denies abdominal pain, Denies belching and Denies cramping *Musculoskeletal Musculoskeletal: Reports back pain, Reports myalgias and Reports other (No small joint swelling or Pain) *Neurologic Neurologic: Denies headache(s) and Denies loss of vision Psychiatric Psychiatric: Denies homicidal ideation and Denies suicidal ideation Endocrine Endocrine: Reports fatigue and Denies heat intolerance Hematologic/Lymphatic Hematologic/Lymphatic: Denies easy bleeding and Denies lymphadenopathy Allergic/Immunologic Allergic/Immunologic: Denies itchy eyes, Denies lip swelling, Denies throat swelling and Reports wheezing Pulmonology Exam Inpatient Vital signs and Labs for Last 24 Hours: Temp Pulse Resp BP Pulse Ox FiO2 97.9 F 84 20 126/60 91 L 32 02/26/22 08:00 02/26/22 08:00 02/26/22 08:00 02/26/22 08:00 02/26/22 08:00 02/25/22 18:52 Laboratory Results - last 24 hr 02/25/22 11:00: Troponin I 0.06 H I & O for Labs for Last 24 Hours: Intake & Output 02/23/22 02/24/22 02/25/22 02/26/22 23:59 23:59 23:59 23:59 Intake Total 2037 / 2037 1035 / 1035 Output Total 600 / 600 0 / 0 Balance 1437 / 1437 1035 / 1035 Weight 126 lb 5 oz 125 lb 127 lb 2 oz Head: Present normocephalic and atraumatic ENT: Present normal exam, normal oropharynx and mucous membranes moist Neck: Present normal inspection and full ROM Respiratory: Present respiratory distress, wheezes, diminished air movement and able to speak in complete sentences Cardiac: Present S1/S2, Tachycardia and radial pulses present GI: Present soft and distention; Absent tenderness or guarding Skin: Present intact; Absent cyanosis or jaundice Neuro: Present alert, awake and oriented x 3 Extremities: Present normal inspection; Absent edema, clubbing or cyanosis Psychiatric: Present normal affect and cooperative Meds Home Medications and Allergies Home Medications Medication Instructions Recorded Confirmed Type gabapentin 8
--- NOTE | 2022-02-26 10:20 | EXP.CARD.CON ---
History of Present Illness History of Present Illness Consult date: 02/26/22 Requesting physician: Rasheed Wadsworth Consult reason: chest pain and shortness of breath Chief complaint: chest pain/SOA History of present illness: This is a 61-year-old white gentleman who presented to the emergency department complaints of shortness of breath, chest pain and weakness. The patient reports that he had not felt good for the last several days prior to admission but then started to have sudden onset of worsening shortness of breath. He states that he felt a pressure, aching sensation in the substernal aspect of his chest. He states that this did not radiate. It was associated with shortness of breath and wheezing. He also had chills and just felt profoundly weak. He states that he felt like he was gasping for air at times and sometimes his heart was also racing. His symptoms would last for several hours. The patient reported that he came into the emergency department because his symptoms got severe and were not improving. This was worse with exertion and nothing was really helping to improve his pain. He states that his shortness of breath is better since being in the hospital but he is still having pressure and aching in his chest. He states that this was severe last night but has somewhat improved since then but is still present. He denies any fever currently. He does report having chills. He denies any nausea, vomiting, diarrhea, PND or orthopnea. The patient was found to have an elevated troponin so he was admitted for further evaluation and treatment. [facility] Medical History (Updated 02/26/22 @ 10:25 by Brooke Her APRN) Chest pain Dyspnea Emphysema/COPD Non-STEMI (non-ST elevated myocardial infarction) Surgical History H/O cardiac catheterization H/O cervical spine surgery Family History (Updated 02/24/22 @ 23:22 by Jade Ocampo RN) Mother Lung cancer Family history of acute congestive heart failure Father Lung cancer Family history of acute congestive heart failure Social History (Updated 02/24/22 @ 23:22 by Jade Ocampo RN) Smoking Status: Current every day smoker tobacco type: cigarettes packs per day: 1 second hand exposure: Yes alcohol intake: current substance use type: denies use current occupational status: disabled Travel in the last 8 weeks: None household members: children housing: house marital status: current occupational exposures/hazards: No pets and animals: No caffeine: Yes Review of Systems Review of Systems Review of systems:: pertinent systems reviewed and negative unless documented below Constitutional Constitutional: Reports body ache(s) (In the chest), Reports chills, Denies headache(s), Reports lethargy and Reports weakness Eyes Eyes: Denies loss of vision ENT Ears, Nose, Mouth, and Throat: Denies headache(s) *Cardiovascular Cardiovascular: Reports system reviewed and no additional complaints, except as documented, Reports chest pain, Reports chest pain at rest, Reports chest pain with activity, Reports dyspnea, Reports dyspnea on exertion and Reports rapid heart rate *Respiratory Respiratory: Reports system reviewed and no additional complaints, except as documented, Reports dyspnea, Reports dyspnea on exertion and Reports wheezing *Gastrointestinal Gastrointestinal: Reports system reviewed and no additional complaints, except as documented *Genitourinary Genitourinary: Reports system reviewed and no additional complaints, except as documented *Musculoskeletal Musculoskeletal: Reports system reviewed and no additional complaints, except as documented Integumentary/Breasts Skin/Breast: Reports system reviewed and no additional complaints, except as documented *Neurologic Neurologic: Denies headache(s), Denies loss of vision and Reports weakness Psychiatric Psychiatric: Reports system reviewed and no
--- NOTE | 2022-02-26 12:35 | PC.NURSE ---
rounded on patient. patient sitting up in bed, with family at bedside. patient waiting for heart cath. no questions or concerns in regards to plan of care at this time. stated when he came back up we could get him something to eat then. no needs voiced. encouraged them to ring out as needed.
--- NOTE | 2022-02-26 16:18 | EXP.ACUTE.PN ---
Subjective *Date: 03/28/22 *Time: 20:22 Interval history: still sob but some better Medical Exam Vital signs and Labs for Last 24 Hours: Temp Pulse Resp BP Pulse Ox FiO2 97.8 F 62 18 131/71 96 32 02/26/22 15:35 02/26/22 15:35 02/26/22 15:35 02/26/22 15:35 02/26/22 15:35 02/25/22 18:52 I & O for Labs for Last 24 Hours: Intake & Output 02/24/22 02/25/22 02/26/22 02/27/22 11:59 11:59 11:59 11:59 Intake Total 586 / 586 2486 / 2486 Output Total 600 / 600 0 / 0 Balance -14 / -14 2486 / 2486 Weight 125 lb 127 lb 2 oz 126 lb 15.78 oz Microbiology Reports for the Last 24 Hours: Microbiology 02/25/22 09:40 Sputum - Expectorated Sputum Gram Stain - Final Head: Present normocephalic ENT: Present mucous membranes dry Neck: Present trachea midline Respiratory: Present diminished air movement; Absent respiratory distress Cardiac: Present Regular Rate GI: Present soft Extremities: Absent full ROM Neuro: Present No Lateralizing Findings
--- NOTE | 2022-02-26 19:13 | PC.NURSE ---
PT ALERT X 4. 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 TRACLET STILL ON R RADIAL. TOOK OUT 8ML OF AIR AND IT STARTED OZZING A SMALL AMOUNT, 4ML OF AIR PUT BACK IN. NO CONCERNS AT THIS MOMENT. 02 ON 3L NC, SATS AT 95%, SOA NOTED WITH SLIGHT EXERTION AND BILAT WHEEZES NOTED IN THE AM. CB, PERSONAL ITEMS WITHIN REACH. NO QUESTIONS OR CONCERNS AT THIS TIME.
[2022-02-26 21:57] LABS: Peripheral Smear Review Scanned Result
[2022-02-27] VITALS: BP 133/73; PULSE 70; PULSE 73; RESP 18; TEMP 36.6; O2SAT 94
[2022-02-27 04:00] VITALS: BP 159/79; PULSE 60; PULSE 63; RESP 19; TEMP 36.6; O2SAT 93
[2022-02-27 04:59] VITALS: BMI 15.7
[2022-02-27 06:14] VITALS: PULSE 64; PULSE 68; O2SAT 95
[2022-02-27 06:49] LABS: Basophils % 0.3 % (0.1-2.0); Hematocrit 42.4 % (42.0-52.0); Hemoglobin 12.8 g/dL (14.1-18.0); Lymphocytes # 0.8 K/mm3 (0.7-4.5); Lymphocytes % 5.8 % (10-50); Mean Corpuscular HGB Conc 30.2 g/dL (31.8-35.4); Mean Corpuscular Hemoglobin 31.6 pg (27.0-31.2); Mean Corpuscular Volume 104.8 fl (80-94); Mean Platelet Volume 7.9 fl (7.4-10.4); Monocytes # 0.6 K/mm3 (0.1-1.0); Monocytes % 4.5 % (1.7-9.3); Neutrophils # 11.8 K/mm3 (1.8-7.8); Neutrophils % 89.4 % (37.0-80.0); Platelet Count 628 K/mm3 (142-424); Red Blood Count 4.05 M/mm3 (4.60-6.20); White Blood Count 13.2 K/mm3 (4.8-10.8)
--- NOTE | 2022-02-27 06:56 | PC.NURSE ---
Pt tolerating 3 L nc well with sats >90%. Pt R radial cath site CDI, tegaderm in place. No c/o voiced to staff. Call light within reach.
[2022-02-27 06:57] LABS: Alanine Aminotransferase 42 U/L (12-78); Albumin Level 3.2 g/dl (3.5-5.0); Alkaline Phosphatase 146 U/L (38-126); Anion Gap 11.2 mEq/L (5-15); Aspartate Amino Transferase 47 U/L (17-59); Blood Urea Nitrogen 19 mg/dl (9-20); Calcium 8.8 mg/dl (8.4-10.2); Carbon Dioxide 29 mmol/L (22.0-30.0); Chloride 98 mmol/L (98-107); Cholesterol 159 mg/dl (140-200); Creatinine Clearance Estimated 60 mL/min (50-200); Estimated Glomerular Filt Rate 136 ml/min (>60); GFR (African American) 165 ML/MIN (>60); Glucose 121 mg/dl (74-100); HDL Cholesterol 32 mg/dl (40-60); Potassium 4.2 mmoL/L (3.5-5.1); Sodium 134 mmol/L (136-145); Total Protein,Serum 6.1 g/dl (6.3-8.2); Triglycerides 164 mg/dl (30-150); VLDL Cholesterol 33 mg/dL (0-40)
[2022-02-27 06:59] LABS: Bilirubin,Total < 0.1 mg/dl (0.2-1.3)
[2022-02-27 07:00] LABS: Bilirubin,Indirect 0.1 mg/dL (0.0-0.9)
[2022-02-27 07:03] LABS: MANUAL DIFFERENTIAL MANUAL DIFFERENTIAL (MANUAL DIFF)
[2022-02-27 07:08] LABS: Direct LDL Cholesterol 96.62 mg/dL (100-129)
[2022-02-27 07:47] LABS: Lymphocytes % 6 % (10-50); Monocytes % 2 % (2-9); Neutrophils % 92 % (42-76); Platelet Estimate Normal; RBC Morphology Normal; Total Cells Counted 100
[2022-02-27 08:00] VITALS: BP 135/55; PULSE 69; PULSE 80; RESP 18; TEMP 37.1; O2SAT 94
--- NOTE | 2022-02-27 09:25 | EXP.PULM.PN ---
Subjective *Date: 02/27/22 *Time: 11:02 Interval history: No acute respiratory vents overnight. Admits continued improvement in his symptoms Pulmonology Exam Inpatient Vital signs and Labs for Last 24 Hours: Temp Pulse Resp BP Pulse Ox FiO2 98.8 F 69 18 135/55 L 94 L 32 02/27/22 08:00 02/27/22 08:00 02/27/22 08:00 02/27/22 08:00 02/27/22 08:00 02/25/22 18:52 Laboratory Results - last 24 hr 02/27/22 06:17: WBC 13.2 H D, RBC 4.05 L, Hgb 12.8 L, Hct 42.4, MCV 104.8 H, MCH 31.6 H, MCHC 30.2 L, RDW 14.0, Plt Count 628 H, MPV 7.9, Neut % (Auto) 89.4 H, Lymph % (Auto) 5.8 L, [place] % (Auto) 4.5, Eos % (Auto) 0.0 L, Baso % (Auto) 0.3, Neut # (Auto) 11.8 H, Lymph # (Auto) 0.8, [place] # (Auto) 0.6, Eos # (Auto) 0.0, Baso # (Auto) 0.0, Total Counted 100, Neutrophils % (Manual) 92 H, Lymphocytes % (Manual) 6 L, Monocytes % (Manual) 2, Platelet Estimate Normal, RBC Morphology Normal 02/27/22 06:17: Sodium 134 L, Potassium 4.2, Chloride 98, Carbon Dioxide 29, Anion Gap 11.2, BUN 19, Creatinine 0.60 L, Estimated Creat Clear 60, Estimated GFR 136, Est GFR ( Amer) 165, Glucose 121 H, Calcium 8.8, Total Bilirubin < 0.1 L, Direct Bilirubin 0.0, Conjugated Bilirubin 0.0, Indirect Bilirubin 0.1, Unconjugated Bilirubin 0.0, AST 47, ALT 42, Alkaline Phosphatase 146 H, Total Protein 6.1 L, Albumin 3.2 L, Triglycerides 164 H, Cholesterol 159, LDL Cholesterol Direct 96.62 L, VLDL Cholesterol 33, HDL Cholesterol 32 L, Cholesterol/HDL Ratio 5.0 H I & O for Labs for Last 24 Hours: Intake & Output 02/24/22 02/25/22 02/26/2213/22 23:59 23:59 23:59 23:59 Intake Total 2036 / 2671 Output Total 600 / 600 0 / 0 401 / 401 Balance 1437 / 1437 2671 / 2671 -401 / -401 Weight 126 lb 5 oz 125 lb 126 lb 15.78 oz 122 lb 14.4 oz Microbiology Reports for the Last 24 Hours: Microbiology 02/24/22 18:48 Blood Blood Culture - Preliminary NO GROWTH AFTER 48 HOURS 02/24/22 18:48 Blood Blood Culture - Preliminary NO GROWTH AFTER 48 HOURS 02/25/22 09:40 Sputum - Expectorated Sputum Gram Stain - Final Head: Present normocephalic and atraumatic ENT: Present normal exam, normal oropharynx and mucous membranes moist Neck: Present normal inspection and full ROM Respiratory: Present respiratory distress and able to speak in complete sentences; Absent accessory muscle use or wheezes Cardiac: Present S1/S2, Tachycardia and radial pulses present GI: Present soft and distention; Absent tenderness or guarding Skin: Present intact; Absent cyanosis or jaundice Neuro: Present alert, awake and oriented x 3 Extremities: Present normal inspection; Absent edema, clubbing or cyanosis Psychiatric: Present normal affect and cooperative; Absent auditory hallucinations or visual hallucinations Assessment and Plan *Assessment and plan (1) CAP (community acquired pneumonia): Status: Acute Qualifiers: Laterality: right Lung location: lower lobe of lung Qualified Code(s): J18.9 - Pneumonia, unspecified organism Category: Medical Code(s): J18.9 - Pneumonia, unspecified organism (2) Acute respiratory failure with hypoxia: Status: Acute Category: Medical Code(s): J96.01 - Acute respiratory failure with hypoxia Plan #Community-acquired pneumonia: #COPD exacerbation History of COPD on triple inhaler therapy. Not using any oxygen at baseline at home. Presented with chest discomfort. Troponins elevated. Cardiology following. Also noted significant leukocytosis and airspace disease on his CT Labs on admission personally viewed, significant leukocytosis but white count of 21.9 admission worsening of a 25.8. Neutrophilic predominant. ABG reviewed, performed on 4 L nasal cannula did not show any evidence of hypercarbic respiratory failure. Troponin is elevated. Chest x-ray admission personally reviewed, no dense consolidation, concerning for bilatera
--- NOTE | 2022-02-27 10:21 | EXP.CARD.PN ---
Subjective Subjective Date: 02/27/22 Time: 10:30 Principal diagnosis: elevated LVEDP, COPD Interval history: This is a 61-year-old white gentleman who presented to the emergency department complaints of chest pain, shortness of breath and weakness. He did have an elevated troponin and the patient underwent left cardiac catheterization yesterday. This showed normal coronary arteries with an elevated LVEDP at [address] Arroyo wants to treat the patient's diastolic dysfunction with low-dose diuretics but he does think that most of his symptoms are stemming from his severe underlying lung disease/COPD. This morning he states that his chest pain has resolved. He states that he is still somewhat short of breath with exertion but this is much better as well. His weakness has resolved. He denies any fever, chills, nausea, vomiting, diarrhea, PND or orthopnea. Left heart cath shows: The left main artery Normal The left anterior descending artery Normal The circumflex artery Nondominant normal The right coronary artery Dominant normal The PINZON ventriculogram reveals Normal 65% The left ventricular end-diastolic pressure Elevated at 25 mm IMPRESSION Normal coronary arteries Normal ejection fraction Elevated LVEDP consistent with diastolic dysfunction PLAN 1. Symptoms most likely stemming from advanced lung disease although treatment of diastolic dysfunction is warranted.? Also recommend pulmonology consult Exam Data for Last 24 hours Vital signs and Labs for Last 24 Hours: Temp Pulse Resp BP Pulse Ox FiO2 98.8 F 69 18 135/55 L 94 L 32 02/27/22 08:00 02/27/22 08:00 02/27/22 08:00 02/27/22 08:00 02/27/22 08:00 02/25/22 18:52 Laboratory Results - last 24 hr 02/27/22 06:17: WBC 13.2 H D, RBC 4.05 L, Hgb 12.8 L, Hct 42.4, MCV 104.8 H, MCH 31.6 H, MCHC 30.2 L, RDW 14.0, Plt Count 628 H, MPV 7.9, Neut % (Auto) 89.4 H, Lymph % (Auto) 5.8 L, [place] % (Auto) 4.5, Eos % (Auto) 0.0 L, Baso % (Auto) 0.3, Neut # (Auto) 11.8 H, Lymph # (Auto) 0.8, G[place] # (Auto) 0.6, Eos # (Auto) 0.0, Baso # (Auto) 0.0, Total Counted 100, Neutrophils % (Manual) 92 H, Lymphocytes % (Manual) 6 L, Monocytes % (Manual) 2, Platelet Estimate Normal, RBC Morphology Normal 02/27/22 06:17: Sodium 134 L, Potassium 4.2, Chloride 98, Carbon Dioxide 29, Anion Gap 11.2, BUN 19, Creatinine 0.60 L, Estimated Creat Clear 60, Estimated GFR 136, Est GFR ( Amer) 165, Glucose 121 H, Calcium 8.8, Total Bilirubin < 0.1 L, Direct Bilirubin 0.0, Conjugated Bilirubin 0.0, Indirect Bilirubin 0.1, Unconjugated Bilirubin 0.0, AST 47, ALT 42, Alkaline Phosphatase 146 H, Total Protein 6.1 L, Albumin 3.2 L, Triglycerides 164 H, Cholesterol 159, LDL Cholesterol Direct 96.62 L, VLDL Cholesterol 33, HDL Cholesterol 32 L, Cholesterol/HDL Ratio 5.0 H I & O for Last 24 hours: Intake & Output 02/24/22 02/25/22 02/26/22 02/27/22 23:59 23:59 23:59 23:59 Intake Total 7 / 2037 2672 / 2672 240 / 240 Output Total 600 / 600 0 / 0 401 / 401 Balance 1437 / 1437 2 / 2672 -161 / -161 Weight 126 lb 5 oz 125 lb 126 lb 15.78 oz 122 lb 14.4 oz Microbiology Reports for the Last 24 Hours: Microbiology 02/24/22 18:48 Blood Blood Culture - Preliminary NO GROWTH AFTER 48 HOURS 02/24/22 18:48 Blood Blood Culture - Preliminary NO GROWTH AFTER 48 HOURS 02/25/22 09:40 Sputum - Expectorated Sputum Gram Stain - Final Radiology Reports for the Last 24 Hours: Echocardiogram shows: 1.? Biatrial enlargement, normal left ventricular size, estimated ejection fraction 55% with no regional wall motion abnormality, diastolic parameters are inconclusive. 2.? Mild mitral and tricuspid regurgitation. 3.? No significant pericardial effusion noted. 4.? Inferior vena cava is poorly visualized. Constitutional Constitutional: no acute distress and average body habitus *Routine HEENT Exam Head: Present normocephalic and atraumatic ENT: Pres
--- NOTE | 2022-02-27 11:30 | EXP.DC.SUM ---
General Admission date:: 02/24/22 Discharge date: 02/27/22 HPI HPI HPI: this patient presented to the ed with sob -pt with no chest pain but has sob which was more than expected for his copd - this has increased over the last few days - Per pt, he has been feeling short of air and excessively weak since yesterday evening. States that he has been having intermittent body aches, but describes the bodyaches as being localized to his chest. Also c/o chills.pt was found to have acute copd and elevated trop- pt was admitted for eval and treatment and card consult Hospital Course Hospital Course Hospital Course: 61-year-old male patient admitted with increasing shortness of breath, fever/chills/body aches, and weakness Pulmonary consulted Cardiology consulted 02/24/22 Chest CTA: FINDINGS: Pulmonary arteries: Normal. No pulmonary emboli. Aorta: No aortic aneurysm. No aortic dissection. Lungs: Advanced emphysema with patchy nodular opacities within the lingula,right middle lobe, and bilateral lower lobes. Pleural spaces: No pneumothorax. No pleural effusion. Heart:? No cardiomegaly. No pericardial effusion. Lymph nodes:? Enlarged mediastinal lymph nodes measuring up to 12 mm. Spleen: There are multiple splenic calcifications likely on the basis of priorgranulomatous exposure. Bones/joints: No acute fracture. Soft tissues: No significant swelling. IMPRESSION: Advanced emphysema with patchy nodular opacities within the lingula, rightmiddle lobe, and bilateral lower lobes which is nonspecific and may beinfectious or inflammatory however follow-up to radiographic clearance isrecommended to rule out underlying malignancy. Electronically signed by Anthony Craig MD Cardiology has seen and recommends: Assessment and Plan Assessment and Plan for All Diagnoses:: Plan: 1.? This is a 61-year-old white gentleman who presented to the emergency department complaints of shortness of breath, chest pain and weakness.? He did have an elevated troponin and underwent left cardiac catheterization yesterday.? The patient was found to have normal coronary arteries with an elevated LVEDP at 25 mmHg and diastolic dysfunction.? Dr. Arroyo does recommend treating his diastolic dysfunction with diuretics.? We will start him on low-dose Lasix 20 mg daily for diuresis. 2.? However, Dr. Arroyo does think most of his symptomology is stemming from his severe/advanced lung disease/COPD.? He does recommend pulmonology consult.? The patient is already being followed by pulmonology.? Will defer. 3.? The patient does have a history of cardiomyopathy, on Entresto and carvedilol.? We will continue these medications. 4.? His blood pressure is well controlled. 5.? His LDL goal is less than 100.? His LDL is currently 96.? On Lipitor. 6.? Tobacco cessation is highly advised and counseled. 7.? His ejection fraction remains normal at 55% with mild MR. 8.? No further recommendations at this time from a cardiac standpoint.? The patient is stable for discharge home today from a cardiac standpoint.? The patient can follow-up in 1 to 2 weeks in cardiology clinic on outpatient basis.? The patient will need to be discharged on the following cardiac medications: Lasix 20 mg daily, Lipitor 10 mg daily, Coreg 3.125 mg p.o. twice daily, Entresto 24/26 mg p.o. twice daily and aspirin 81 mg daily. Thank you for the opportunity to help participate in the care of this patient. All recommendations and orders are per Dr. Arroyo. Pulmonology has seen and recommends:? Plan #Community-acquired pneumonia: #COPD exacerbation History of COPD on triple inhaler therapy.? Not using any oxygen at baseline at home.? Presented with chest discomfort.? Troponins elevated.? Cardiology following.? Also noted significant leukocytosis and airspace disease on his CT Labs on admission personally viewed, significant leukocytosis but white count of 21.9 admission worsening of a 25.8.? Neutrophilic predominant.? ABG revie
--- NOTE | 2022-02-28 13:30 | CARE MANAGER ---
Contacted patient's daughter related to hospital discharge. She states he is doing very well. Denies any questions or concerns. SAHRA Spaulding
== END 2022-02-27 13:00 | disposition home or self-care (01) ==
LOC: ER 20:30 → 2ND 21:51
PROVIDERS: Internal Medicine; Nurse Practitioner Family; Admitting Provider Emergency Medicine; Emergency Provider Emergency Medicine; PCP Emergency Medicine; Visit Provider Emergency Medicine
DX: G62.9 Polyneuropathy, unspecified (principal); F17.210 Nicotine dependence, cigarettes, uncomplicated; J44.1 Chronic obstructive pulmonary disease with (acute) exacerbation; J45.901 Unspecified asthma with (acute) exacerbation; J44.0 Chronic obstructive pulmonary disease with (acute) lower respiratory infection; J18.9 Pneumonia, unspecified organism; J96.01 Acute respiratory failure with hypoxia; I42.8 Other cardiomyopathies; I10 Essential (primary) hypertension; E78.5 Hyperlipidemia, unspecified; Z79.899 Other long term (current) drug therapy; Z20.822 Contact with and (suspected) exposure to COVID-19
CPT/HCPCS: G0378; 36415; 71046; 71275; 80048; 80061; 80076; 82140; 82803; 83605; 83735; 83880; 84145; 84484; 85007; 85025; 85651; 86140; 87040; 87070; 87205; 93005; 93306; 93458; 94640; 94760; 94761; 99152; 99285; C1725; C1769; C9803; J0456; J0696; J1644; J1956; Q9967; U0003; U0005

== ENCOUNTER → 2022-06-05 13:45 | Outpatient (CLI) | payer MEDICARE, MEDICAID, SELFPAY ==
[2022-06-05 15:30] LABS: Basophils # 0.1 K/mm3 (0-0.2); Basophils % 1.3 % (0.1-2.0); Eosinophils # 0.2 K/mm3 (0.0-0.4); Eosinophils % 2.5 % (0.1-12.0); Hematocrit 43.3 % (42.0-52.0); Hemoglobin 13.4 g/dL (14.1-18.0); Lymphocytes # 2.3 K/mm3 (0.7-4.5); Lymphocytes % 29.2 % (10-50); Mean Corpuscular HGB Conc 30.9 g/dL (31.8-35.4); Mean Corpuscular Hemoglobin 29.8 pg (27.0-31.2); Mean Corpuscular Volume 96.4 fl (80-94); Mean Platelet Volume 7.9 fl (7.4-10.4); Monocytes # 0.5 K/mm3 (0.1-1.0); Monocytes % 5.8 % (1.7-9.3); Neutrophils # 4.7 K/mm3 (1.8-7.8); Neutrophils % 61.2 % (37.0-80.0); Platelet Count 600 K/mm3 (142-424); Red Blood Count 4.49 M/mm3 (4.60-6.20); Red Cell Distribution Width 14.7 % (11.5-17.5); White Blood Count 7.8 K/mm3 (4.8-10.8)
[2022-06-05 16:12] LABS: Alanine Aminotransferase 15 U/L (12-78); Albumin Level 4.1 g/dl (3.5-5.0); Alkaline Phosphatase 158 U/L (38-126); Anion Gap 11.4 mEq/L (5-15); Aspartate Amino Transferase 24 U/L (17-59); Bilirubin,Direct 0.1 mg/dl (0.0-0.4); Bilirubin,Indirect 0.3 mg/dL (0.0-0.9); Bilirubin,Total 0.4 mg/dl (0.2-1.3); Bilirubin,Unconjugated 0.3 mg/dL (0.0-1.1); Blood Urea Nitrogen 11 mg/dl (9-20); Carbon Dioxide 32 mmol/L (22.0-30.0); Chloride 102 mmol/L (98-107); Chol/HDL Ratio 2.8 (1-3.5); Cholesterol 155 mg/dl (140-200); Estimated Glomerular Filt Rate 136 ml/min (>60); GFR (African American) 165 ML/MIN (>60); Glucose 89 mg/dl (74-100); HDL Cholesterol 56 mg/dl (40-60); Potassium 4.4 mmoL/L (3.5-5.1); Sodium 141 mmol/L (136-145); Total Protein,Serum 7.1 g/dl (6.3-8.2); Triglycerides 125 mg/dl (30-150); VLDL Cholesterol 25 mg/dL (0-40)
[2022-06-05 16:23] LABS: Direct LDL Cholesterol 68.64 mg/dL (100-129)
== END ==
PROVIDERS: PCP Emergency Medicine; Visit Provider Nurse Practitioner
DX: I10 Essential (primary) hypertension (principal); E78.2 Mixed hyperlipidemia
CPT/HCPCS: 36415; 80048; 80061; 80076; 85025

== ENCOUNTER → 2022-06-13 15:20 | Outpatient (CLI) | payer MEDICARE, MEDICAID, SELFPAY ==
--- NOTE | 2022-06-13 15:20 | CT_ITS ---
FINAL REPORT CLINICAL HISTORY: lung cancer screening former smoker quite 3 months ago , smoked for 45 years 2 packs per day copd COMPARISON: February 2022 FINDINGS: Low-Dose Chest CT CTDI vol (mGy): 2.90 DLP (mGy-cm): 120.37 Axial images were obtained from the lung apex to the mid abdomen by computed tomography. Low-dose protocol was utilized. FINDINGS: CHEST: There is no axillary adenopathy. There is no hilar or mediastinal adenopathy. There is ectasia of the ascending aorta at 38 mm. The heart is proper size. There is no pericardial or pleural effusion. Limited images of the upper abdomen are unremarkable. Lung window images demonstrate moderate changes of emphysema with mild areas of scarring. There is diffuse bronchial wall thickening consistent with bronchitis. There has been marked interval improvement in widespread pulmonary opacities. A calcified granuloma is seen in the lingula. There are multiple less than 5 mm pulmonary nodules there are not as well seen on the prior exam for or likely obscured by opacities. A 7 mm nodular opacity is seen in the anterior-inferior right upper lobe on image 57 that is stable from the prior exam. IMPRESSION: Multiple small pulmonary nodules, stable. Lung RADS category 2. Recommend 12 month follow-up low-dose chest CT. Reviewed, Interpreted and Dictated by Leon Berry III, MD Transcribed by David Noonan Authenticated and [facility]
== END ==
PROVIDERS: PCP Emergency Medicine; Visit Provider Internal Medicine Pulmonary Disease
DX: Z87.891 Personal history of nicotine dependence (principal); Z12.2 Encounter for screening for malignant neoplasm of respiratory organs
CPT/HCPCS: 71271

== ENCOUNTER → 2022-11-29 14:53 | Outpatient (CLI) | payer MEDICARE, MEDICAID, SELFPAY ==
[2022-11-29 15:48] LABS: Basophils # 0.1 K/mm3 (0-0.2); Basophils % 0.5 % (0.1-2.0); Eosinophils # 0.1 K/mm3 (0.0-0.4); Eosinophils % 1.1 % (0.1-12.0); Hematocrit 42.5 % (42.0-52.0); Hemoglobin 13.4 g/dL (14.1-18.0); Lymphocytes # 2.2 K/mm3 (0.7-4.5); Lymphocytes % 16.9 % (10-50); Mean Corpuscular HGB Conc 31.6 g/dL (31.8-35.4); Mean Corpuscular Hemoglobin 30.6 pg (27.0-31.2); Mean Corpuscular Volume 96.9 fl (80-94); Monocytes # 0.9 K/mm3 (0.1-1.0); Monocytes % 7.1 % (1.7-9.3); Neutrophils # 9.7 K/mm3 (1.8-7.8); Neutrophils % 74.5 % (37.0-80.0); Platelet Count 551 K/mm3 (142-424); Red Blood Count 4.38 M/mm3 (4.60-6.20); Red Cell Distribution Width 13.9 % (11.5-17.5); White Blood Count 13.1 K/mm3 (4.8-10.8)
[2022-11-29 16:18] LABS: Alanine Aminotransferase 24 U/L (12-78); Alkaline Phosphatase 115 U/L (38-126); Anion Gap 17.6 mEq/L (5-15); Aspartate Amino Transferase 27 U/L (17-59); Bilirubin,Indirect 0.5 mg/dL (0.0-0.9); Bilirubin,Total 0.5 mg/dl (0.2-1.3); Bilirubin,Unconjugated 0.6 mg/dL (0.0-1.1); Blood Urea Nitrogen 29 mg/dl (9-20); Calcium 9.2 mg/dl (8.4-10.2); Carbon Dioxide 29 mmol/L (22.0-30.0); Chloride 94 mmol/L (98-107); Chol/HDL Ratio 3.1 (1-3.5); Cholesterol 169 mg/dl (140-200); Estimated Glomerular Filt Rate 97 ml/min (>60); GFR (African American) 118 ML/MIN (>60); Glucose 104 mg/dl (74-100); HDL Cholesterol 55 mg/dl (40-60); Potassium 4.6 mmoL/L (3.5-5.1); Sodium 136 mmol/L (136-145); Total Protein,Serum 7.5 g/dl (6.3-8.2); Triglycerides 115 mg/dl (30-150); VLDL Cholesterol 23 mg/dL (0-40)
[2022-11-29 16:30] LABS: Direct LDL Cholesterol 85.26 mg/dL (100-129)
[2022-11-29 16:35] LABS: Free T4 (Free Thyroxine) 1.29 ng/dl (0.78-2.19)
[2022-11-29 16:49] LABS: Thyroid Stimulating Hormone 1.12 uIU/mL (0.465-4.68)
== END ==
PROVIDERS: PCP Emergency Medicine; Visit Provider Physician Assistant
DX: I10 Essential (primary) hypertension; I42.8 Other cardiomyopathies
CPT/HCPCS: 36415; 80048; 80061; 80076; 83735; 84439; 84443; 85025

== ENCOUNTER → 2022-12-20 12:48 | Outpatient (CLI) | payer MEDICARE, MEDICAID, SELFPAY | PROVIDERS: PCP Emergency Medicine; Visit Provider Internal Medicine Pulmonary Disease | DX: R06.02 Shortness of breath (principal); R06.09 Other forms of dyspnea | CPT/HCPCS: 94060 ==

== ENCOUNTER → 2023-01-23 13:19 | Outpatient (CLI) | payer MEDICARE, MEDICAID, SELFPAY ==
--- NOTE | 2023-01-23 13:19 | US_ITS ---
PROCEDURE INFORMATION: Exam: US Right Breast, Complete Exam date and time: 01/23/2023 1:32 PM Age: 62 years old Clinical indication: Palpable right breast mass TECHNIQUE: Imaging protocol: Complete ultrasound of all four quadrants of the right breast and the retroareolar regions, including ultrasound of the axilla when performed. COMPARISON: No relevant prior studies available. FINDINGS: Breast: Sonographic images of the right retroareolar region where the patient reports a palpable abnormality demonstrates an ovoid hypoechoic solid appearing mass measuring 1.7 x 0.4 x 1.5 cm in dimension. However, comparison evaluation of the left retroareolar region demonstrates a similar appearing discoid shape hypoechoic mass. The findings likely reflect bilateral benign gynecomastia. No axillary adenopathy. IMPRESSION: Patient to return for a diagnostic bilateral mammogram for full evaluation of probable bilateral gynecomastia and for full evaluation of the patient's complaint of a palpable mass in the right breast. ASSESSMENT: BI-RADS Category 0: Incomplete- Need Additional Imaging Evaluation and/or Prior Mammograms for Comparison
== END ==
LOC: RAD 13:19
PROVIDERS: PCP Emergency Medicine; Visit Provider Student in an Organized Health Care Education/Training Program
DX: N62 Hypertrophy of breast (principal); N63.41 Unspecified lump in right breast, subareolar
CPT/HCPCS: 76641

== ENCOUNTER → 2023-02-01 10:52 | Outpatient (CLI) | payer MEDICARE, MEDICAID, SELFPAY ==
[2023-02-11 14:47] LABS: Free Testosterone (Direct) 2.5 pg/mL (6.6-18.1); Testosterone, Total, LC/MS 316.2 ng/dL (264.0-916.0)
== END ==
PROVIDERS: PCP Emergency Medicine; Visit Provider Student in an Organized Health Care Education/Training Program
DX: E29.1 Testicular hypofunction (principal)
CPT/HCPCS: 36415

== ENCOUNTER → 2023-02-06 13:46 | Outpatient (CLI) | payer MEDICARE, MEDICAID, SELFPAY ==
--- NOTE | 2023-02-06 13:46 | MM_ITS ---
PROCEDURE INFORMATION: Exam: Bilateral Diagnostic Breast Tomosynthesis Exam date and time: 02/06/2023 1:43 PM Age: 62 years old Clinical indication: Right breast pain; Right breast palpable lump TECHNIQUE: Imaging protocol: Bilateral Diagnostic tomosynthesis and 2D mammography including computer-aided detection (CAD) when performed. Unilateral or bilateral exam. COMPARISON: US BREAST LT COMPLETE 01/23/2023 1:32 PM FINDINGS: MAMMOGRAPHY: The breast tissue is almost entirely fatty. There is no significant breast tissue on either side. The ovoid hypoechoic appearing mass in the right retroareolar region on sonography and where the patient reports a palpable abnormality is not seen on mammography. There is no stellate mass, architectural distortion or suspicious microcalcifications in either breast to suggest malignancy. No skin thickening or axillary adenopathy. IMPRESSION: Palpable abnormality in the right breast is only seen on sonography. It is a solid appearing mass. Ultrasound-guided core biopsy is recommended for further evaluation. Consideration is also made for left retroareolar ultrasound-guided core biopsy for what appears to be a similar appearing ovoid hypoechoic solid mass. No significant breast tissue is seen on mammography. ASSESSMENT: BI-RADS Category 4: Suspicious
== END ==
PROVIDERS: PCP Emergency Medicine; Visit Provider Student in an Organized Health Care Education/Training Program
DX: R92.8 Other abnormal and inconclusive findings on diagnostic imaging of breast (principal)
CPT/HCPCS: 77062; 77066; G0279

== ENCOUNTER → 2023-02-06 14:18 | Outpatient (POV) | payer MEDICARE, MEDICAID, SELFPAY ==
--- NOTE | 2023-02-06 14:33 | EXP.PAIN.OV ---
HPI Data of Consult Patient: known to practice within the last 3 years Consult date: 02/06/23 Requesting Physician: Sophia Reyes APRN Primary Care Provider: Rasheed Wadsworth MD Consult Narrative Reason for consult: Postherpetic neuralgia History of present illness: Mr. Turk is a 62 year old male who presents today as a new patient. He is a referral from Dr. Alonso's office. Today he rates his pain a 10 out of 10. Patient does state he has chronic pain in his low back and neck and that he does see a pain facility for this. He does state that he is coming here today for his postherpetic neuralgia related to a shingles outbreak that happened a couple of years ago that affected his right side of his forehead and into his right eye and the back of his head. Patient does state this continues to be a long-term pain and describes it as an aching, burning, tingling sensation that is very sensitive to light. He states the pain does affect his ability perform activities of daily living such as cooking or cleaning. Patient does state he previously had nerve blocks that did provide significant improvement of this pain of approximately 90%. He is interested in repeating these injections at today's visit. Patient had tried compounding cream however this caused burning sensations. Patient is currently managed with oxycodone 15 mg 3 times a day and gabapentin 800 mg 3 times a day from an outside provider. Patient denies any side effects from this medication. He does state that he has tried [id number] medications along with heat and ice with no additional relief. His Marck is [phone]. Its been reviewed and appropriate. CC: Sophia Reyes APRN [facility] Disclaimer: The information contained in this section may have been updated after the patient was seen, as this information can be updated by other users. Medical History (Updated 02/06/23 @ 14:52 by Sophia Reyes APRN) Abnormal screening computed tomography (CT) of chest Acute respiratory failure with hypoxia Atypical pneumonia CAP (community acquired pneumonia) Cardiomyopathy Chest pain COPD (chronic obstructive pulmonary disease) COPD (chronic obstructive pulmonary disease) with acute bronchitis Diastolic dysfunction Dyspnea Elevated C-reactive protein Elevated left ventricular end-diastolic pressure (LVEDP) Emphysema/COPD Encounter for screening for malignant neoplasm of lung in current smoker with 30 pack year history or greater Eye pain Herpes zoster ophthalmicus, right eye HLD (hyperlipidemia) HTN (hypertension) Left against medical advice Low body mass index (BMI) Neuropathy Non-STEMI (non-ST elevated myocardial infarction) Nonischemic cardiomyopathy Pain, eye, right Pneumonia due to gram-negative bacteria Poisoning by opiate or related narcotic Postherpetic neuralgia Postherpetic trigeminal neuralgia Preoperative clearance Rhinovirus infection Shingles SIRS (systemic inflammatory response syndrome) Tobacco dependence syndrome Upper respiratory infection Surgical History H/O cardiac catheterization H/O cervical spine surgery Family History Mother Lung cancer Family history of acute congestive heart failure Father Lung cancer Family history of acute congestive heart failure Social History Smoking Status: Former smoker smoking status stop date: december 2021 second hand exposure: Yes alcohol intake: current substance use type: denies use current occupational status: disabled Travel in the last 8 weeks: None household members: children housing: house marital status: current occupational exposures/hazards: No pets and animals: No caffeine: Yes Review of Systems Review of Systems Review of systems:: pertinent systems reviewed and negative unless documented b
[2023-02-06 14:43] VITALS: BP 120/64; PULSE 80; RESP 18; O2SAT 95; BMI 16.9
== END ==
PROVIDERS: PCP Emergency Medicine; Visit Provider Nurse Practitioner Family
DX: B02.29 Other postherpetic nervous system involvement (principal)
CPT/HCPCS: 77062; 77066; 99202; G0279; G0463

== ENCOUNTER 2023-02-19 09:51 | Day surgery (SDC) | payer MEDICARE, MEDICAID, SELFPAY ==
[2023-02-19 10:02] VITALS: BP 114/64; PULSE 69; RESP 17; TEMP 36.3; O2SAT 96; BMI 16.7
--- NOTE | 2023-02-19 10:25 | EXP.PAIN.PRO ---
Procedure Date: 02/19/23 Time: 10:15 Anesthesiologist:: Eagle [place] CRNA Complications:: None Pre-procedure Diagnosis:: Postherpetic neuralgia right supraorbital area. Post-procedure Diagnosis:: Same. Indications for Procedure:: Patient is a very pleasant 62-year-old male that comes our clinic today for peripheral nerve block over the right supraorbital area secondary to continued postherpetic neuralgia in this area. Patient had shingles outbreak 3 years ago lasting several months. He continues with postherpetic neuralgia in this area of the right supraorbital fossa. Right forehead area. Procedure Details:: Details of the procedure explained to the patient. The patient taken to procedure room placed in the sitting position. The area over the right forehead was cleaned using chlorhexidine as a cleansing solution. Using a solution containing 0.25% Marcaine +1% lidocaine and 40 mg of Depo-Medrol 6 cc was injected after negative aspiration over the right eye and the supraorbital area including the right temporal area. Patient tolerated procedure without difficulty. There are no complications. Plan and Disposition:: Patient is a patient in a pain clinic in [place]. He receives chronic narcotic pain medication oxycodone 15 mg 1 p.o. 3 times daily as well as gabapentin 800 mg 1 p.o. 3 times daily.
[2023-02-19 10:35] VITALS: BP 101/62; PULSE 63; RESP 20
== END 2023-02-19 10:35 | disposition home or self-care (01) ==
PROVIDERS: PCP Emergency Medicine; Visit Provider Nurse Anesthetist, Certified Registered
DX: B02.29 Other postherpetic nervous system involvement (principal)
CPT/HCPCS: 64450; J1040

== ENCOUNTER → 2023-03-07 13:25 | Outpatient (POV) | payer MEDICARE, MEDICAID, SELFPAY ==
--- NOTE | 2023-03-07 13:52 | EXP.PAIN.SOA ---
[facility] Pain Management SOAP Note Subjective:: Patient is a pleasant 62-year-old male who presents today for follow-up of peripheral nerve block of the right supraorbital area on 02/19/2023. We are currently treating the patient for postherpetic neuralgia right supraorbital area. Today he rates his pain a 9 out of 10. Patient does state that the injection worked very well for the first few hours of upwards of 90% and then it did seem to do a pretty good job over the next couple of days however he does state he is back to his baseline today. Patient does continue to state the pain is debilitating and interferes with his ability perform activities of daily living such as cooking and cleaning. Patient has been dealing with this for the last 3 years. He describes it as an aching, burning, tingling sensation that is worse with increased activity or sensitivity to light. Patient is currently managed with oxycodone 15 mg 3 times a day and gabapentin 800 mg 3 times a day from an outside provider. His Marck is [phone]. Its been reviewed and appropriate. Review of Systems: General: No recent weight changes, no fever, no sleep disturbances Respiratory: No cough, no shortness of air, no recurring pulmonary infections Cardiovascular/peripheral vascular: No chest pain, no palpitations, no edema, no shortness of breath Gastrointestinal: No new onset incontinence, normal bowel movements reported Genitourinary: No new onset incontinence Musculoskeletal: Right facial pain Psychiatric: [Normal mood/affect] Neurological: [Denies weakness in extremities], [denies balance issues] Objective:: Physical Exam: General: Alert and oriented x3, no acute distress, pleasant and cooperative Lungs: Respirations even and unlabored, symmetrical chest expansion Eyes: PERRL Musculoskeletal: Flexion and extension of cervical [spine] somewhat guarded secondary to pain, [antalgic gait noted] Neurological: Speech clear, no gross sensory deficit Assessment:: Postherpetic neuralgia right supraorbital area, chronic pain Plan:: Patient did have significant improvement from his peripheral nerve block however he is back to his baseline. I have discussed with the patient that he may benefit from a repeat injection. Risk and benefits were explained to the patient and he would like to proceed forward with this plan of care. I have also talked to the patient regarding possibly starting amitriptyline however the patient is already on duloxetine so we will hold off at this time. We will discuss at his future visit whether or not the duloxetine is providing any additional improvement and whether or not if he would like to switch medications. Patient will be scheduled for a peripheral nerve block over the right supraorbital area. Patient has been instructed to contact the clinic with any concerns before the next appointment. Dr. Murcia has reviewed this note and agrees with this plan of care. This note was dictated using voice recognition software and make contain errors or omissions. [facility] Disclaimer: The information contained in this section may have been updated after the patient was seen, as this information can be updated by other users. Medical History Abnormal screening computed tomography (CT) of chest Acute respiratory failure with hypoxia Atypical pneumonia CAP (community acquired pneumonia) Cardiomyopathy Chest pain COPD (chronic obstructive pulmonary disease) COPD (chronic obstructive pulmonary disease) with acute bronchitis Diastolic dysfunction Dyspnea Elevated C-reactive protein Elevated left ventricular end-diastolic pressure (LVEDP) Emphysema/COPD Encounter for screening for malignant neoplasm of lung in current smoker with 30 pack year history or greater Eye pain Herpes zoster ophthalmicus, right eye HLD (hyperlipidemia) HTN (hypertension) Left against medical advice Low body mass index (BMI) Neuropathy Non-STEM
[2023-03-07 13:56] VITALS: BP 97/57; PULSE 77; RESP 18; O2SAT 94; BMI 16.7
== END ==
PROVIDERS: PCP Emergency Medicine; Visit Provider Nurse Practitioner Family
DX: B02.29 Other postherpetic nervous system involvement (principal); G89.29 Other chronic pain
CPT/HCPCS: 99212; G0463

== ENCOUNTER 2023-03-26 13:18 | Day surgery (SDC) | payer MEDICARE, MEDICAID, SELFPAY ==
[2023-03-26 13:26] VITALS: BP 105/63; PULSE 68; RESP 20; TEMP 36.5; O2SAT 95; BMI 17.9
--- NOTE | 2023-03-26 13:41 | EXP.PAIN.PRO ---
Procedure Date: 03/26/23 Time: 13:40 Anesthesiologist:: Eagle Richmond CRNA Complications:: None Pre-procedure Diagnosis:: Postherpetic probably neuralgia right supraorbital area. Post-procedure Diagnosis:: Same. Indications for Procedure:: Patient is a very pleasant 62-year-old male that comes to clinic today for a right supraorbital area nerve block. Patient is 3-1/2 years post herpetic outbreak of the scalp, right periorbital area. Patient states he still having stinging nerve pain. Patient has had consultation with neurology. Neurology referred him back to our clinic. He rates his pain 7/10 Procedure Details:: Details of the procedure explained to the patient. The patient taken the procedure room placed in the sitting position. The area over the right periorbital was cleaned using chlorhexidine as a cleansing solution. Using a 30-gauge needle the right periorbital area was infiltrated subcutaneously with 6 cc of 1% lidocaine and 40 mg of Depo-Medrol. Patient tolerated procedure without difficulty. No complications. Plan and Disposition:: Patient was discharged without incident
[2023-03-26 13:42] VITALS: BP 107/61; PULSE 62; RESP 18; O2SAT 98
== END 2023-03-26 13:42 | disposition home or self-care (01) ==
PROVIDERS: PCP Emergency Medicine; Visit Provider Nurse Anesthetist, Certified Registered
DX: B02.29 Other postherpetic nervous system involvement (principal)
CPT/HCPCS: 64400; J1040

== ENCOUNTER → 2023-04-17 13:23 | Outpatient (POV) | payer MEDICARE, SELFPAY ==
--- NOTE | 2023-04-17 13:42 | EXP.PAIN.SOA ---
[facility] Pain Management SOAP Note Subjective:: Patient is a pleasant 62-year-old male who presents today for follow-up of his right supraorbital nerve block on 03/26/2023. We are currently treating the patient for post herpetic neuralgia right supraorbital area. Today he rates his pain an 8 out of 10. Patient states that he did have more than 50% improvement with the last injection and it did seem to last much longer than the one prior. He does state that he has had at least 3 weeks movement. He states he went from daily sharp shooting pains in around his right eye to wear currently he experiences it 1-2 times per week. Patient denies any new trauma or injury. Patient does state when the pain is present it does interfere with his ability to perform activities of daily living such as cooking and cleaning. Patient is currently managed with oxycodone 50 mg 3 times a day and Horizant ER 600 mg mg2 times a day from an outside provider. His Marck has been reviewed and is appropriate. Review of Systems: General: No recent weight changes, no fever, no sleep disturbances Respiratory: No cough, no shortness of air, no recurring pulmonary infections Cardiovascular/peripheral vascular: No chest pain, no palpitations, no edema, no shortness of breath Gastrointestinal: No new onset incontinence, normal bowel movements reported Genitourinary: No new onset incontinence Musculoskeletal: Right eye pain Psychiatric: [Normal mood/affect] Neurological: [Denies weakness in extremities], [denies balance issues] Objective:: Physical Exam: General: Alert and oriented x3, no acute distress, pleasant and cooperative Lungs: Respirations even and unlabored, symmetrical chest expansion Eyes: PERRL Musculoskeletal: Flexion and extension of cervical [spine] somewhat guarded secondary to pain, [antalgic gait noted] Neurological: Speech clear, no gross sensory deficit Assessment:: Postherpetic neuralgia right supraorbital area Plan:: Patient did have more than 50% improvement following his last supraorbital nerve block lasting approximately 3 weeks. Patient is experiencing more pain in and around his right eye during today's exam. I have discussed with the patient that he may benefit from repeat supraorbital nerve block. Risk and benefits were discussed with the patient and he would like to proceed forward with this plan of care. We will schedule the patient for a right supraorbital nerve block. Patient has been instructed to contact the clinic with any concerns before the next appointment. Dr. Murcia has reviewed this note and agrees with this plan of care. This note was dictated using voice recognition software and make contain errors or omissions. [facility] Disclaimer: The information contained in this section may have been updated after the patient was seen, as this information can be updated by other users. Medical History Abnormal screening computed tomography (CT) of chest Acute respiratory failure with hypoxia Atypical pneumonia CAP (community acquired pneumonia) Cardiomyopathy Chest pain COPD (chronic obstructive pulmonary disease) COPD (chronic obstructive pulmonary disease) with acute bronchitis Diastolic dysfunction Dyspnea Elevated C-reactive protein Elevated left ventricular end-diastolic pressure (LVEDP) Emphysema/COPD Encounter for screening for malignant neoplasm of lung in current smoker with 30 pack year history or greater Eye pain Herpes zoster ophthalmicus, right eye HLD (hyperlipidemia) HTN (hypertension) Left against medical advice Low body mass index (BMI) Neuropathy Non-STEMI (non-ST elevated myocardial infarction) Nonischemic cardiomyopathy Pain, eye, right Pneumonia due to gram-negative bacteria Poisoning by opiate or related narcotic Postherpetic neuralgia Postherpetic trigeminal neuralgia Preoperative clearance Rhinovirus infection Shingles SIRS (systemic inflammatory response syndrome)
[2023-04-17 14:42] VITALS: BP 133/100; PULSE 64; RESP 18; O2SAT 93; BMI 16.7
== END ==
PROVIDERS: PCP Emergency Medicine; Visit Provider Nurse Practitioner Family
DX: B02.29 Other postherpetic nervous system involvement (principal)
CPT/HCPCS: 99212; G0463

== ENCOUNTER → 2023-04-26 12:52 | Outpatient (CLI) | payer MEDICARE, SELFPAY ==
--- NOTE | 2023-04-26 12:52 | US_ITS ---
PROCEDURE INFORMATION: Exam: US Left Breast, Complete US Right Breast, Complete Exam date and time: 04/26/2023 1:23 PM Age: 62 years old Clinical indication: Follow-up from 02/06/2023 and 01/23/2023. In the 02/06/2023 report, bilateral ultrasound guided core biopsies were recommended. TECHNIQUE: Imaging protocol: Complete ultrasound of all four quadrants of the left breast and the retroareolar regions, including ultrasound of the axilla when performed. Complete ultrasound of all four quadrants of the right breast and the retroareolar regions, including ultrasound of the axilla when performed. COMPARISON: US BREAST RT COMPLETE 01/23/2023 1:32 PM MG MM DIG MAMM BI DX W/CAD 02/06/2023 1:43 PM FINDINGS: Breast: Bilateral sonography, all 4 quadrants, retroareolar and axilla. On the right, at the palpable concern retroareolar, superficial oval solid avascular mass measuring 1.3 x 0.3 x 1.5 cm, which measured 1.5 x 1.7 x 0.4 cm on 01/23/2023. One of the axillary lymph nodes shows a thickened cortex up to 0.4 cm, the fatty hilum is maintained with no increased Doppler flow. The other imaged axillary lymph nodes are sonographically unremarkable. On the left, at the palpable concern retroareolar, superficial oval solid avascular mass measuring 1.1 x 1.2 x 0.3 cm, which measured approximately 1.1 x 0.3 cm on 01/23/2023. One of the axillary lymph nodes shows a thickened cortex up to 0.3 cm (upper limit of normal), the fatty hilum is maintained with no increased Doppler flow. The other imaged axillary lymph nodes are sonographically unremarkable. IMPRESSION: See comments No significant change in superficial oval solid palpable masses in both retroareolar regions compared to 01/23/2023 (if these were biopsied, please correlate with pathology). Further evaluation of a palpable abnormality should be based on clinical grounds regardless of radiographic findings or lack thereof. Suggest continued six-month follow-up sonography, unless otherwise clinically indicated. Borderline at normal axillary lymph nodes, may be reactive, correlate clinically, and suggest 6-8 week follow-up bilateral axillary sonography unless otherwise clinically indicated. ASSESSMENT: BI-RADS Category 3: Probably benign
== END ==
LOC: RAD 12:52
PROVIDERS: PCP Emergency Medicine; Visit Provider Surgery
DX: R92.8 Other abnormal and inconclusive findings on diagnostic imaging of breast (principal)
CPT/HCPCS: 76641

== ENCOUNTER 2023-04-30 13:32 | Day surgery (SDC) | payer MEDICARE, SELFPAY ==
[2023-04-30 13:49] VITALS: BP 121/55; PULSE 62; RESP 18; TEMP 36.6; O2SAT 92; BMI 16.5
[2023-04-30 13:57] VITALS: BP 114/58; PULSE 59; O2SAT 94
--- NOTE | 2023-04-30 13:57 | EXP.PAIN.PRO ---
Procedure Date: 04/30/23 Time: 13:49 Anesthesiologist:: [facility] [place] CRNA Complications:: None Pre-procedure Diagnosis:: Peripheral nerve block right supraorbital. Post-procedure Diagnosis:: Same. Indications for Procedure:: Patient is a pleasant 62-year-old male that comes our clinic today for a right peripheral supraorbital nerve block. Patient has been suffering with right periorbital and supraorbital postherpetic neuralgia for several years. Same injection last month provided 3 weeks of significant improvement terms of his overall postherpetic neuralgia pain. Procedure Details:: Details of the procedure explained to the patient. The patient taken the procedure room placed in the sitting position. The area over the right supraorbital area was cleaned using alcohol swab. Using a 25-gauge needle 8 mL of a solution containing 0.25% Marcaine +1% lidocaine and 40 mg of Depo-Medrol was injected across the entire right supraorbital area in a fanning fashion after negative aspiration. Patient tolerated procedure without difficulty. No complications. Plan and Disposition:: Patient was discharged without incident.
[2023-04-30 14:02] VITALS: BP 114/58; PULSE 58; O2SAT 95
[2023-04-30 14:05] VITALS: BP 132/71; PULSE 58; RESP 16; O2SAT 92
--- NOTE | 2023-04-30 14:10 | CA_ITS ---
FINAL REPORT TECHNIQUE: Real-time imaging was performed of the extracranial carotid arteries in transverse and longitudinal planes, with color duplex evaluation of blood flow velocity. Spectral analysis was performed. The cervical vertebral arteries were also examined. CLINICAL HISTORY: bruit, HTN, hyperlipidemia COMPARISON: None FINDINGS: NASCET technique is utilized for stenosis evaluation. Right carotid system (centimeters/second): CCA: 152 ICA: 99 ECA: 78 Vertebral artery: Antegrade ICA/CCA ratio: 1.45 Mild plaque is identified at the bifurcation. Left carotid system (centimeters/second): CCA: 150 ICA: 82 ECA: 68 Vertebral artery: Antegrade ICA/CCA ratio: 0.9 Mild plaque is identified at the bifurcation. IMPRESSION: Less than 50% right ICA stenosis. Less than 50% left ICA stenosis. Antegrade flow bilateral vertebral arteries. Reviewed, Interpreted and Dictated by Caleb Mendiola MD Transcribed by Glenda Bojorquez Authenticated and [facility]
== END 2023-04-30 14:05 | disposition home or self-care (01) ==
PROVIDERS: PCP Emergency Medicine; Visit Provider Internal Medicine
DX: R09.89 Other specified symptoms and signs involving the circulatory and respiratory systems (principal); B02.29 Other postherpetic nervous system involvement
CPT/HCPCS: 64450; 93880; J1040

== ENCOUNTER → 2023-05-16 07:43 | Outpatient (CLI) | payer MEDICARE, SELFPAY ==
[2023-05-16 19:42] LABS: Basophils # 0.1 K/mm3 (0-0.2); Basophils % 0.7 % (0.1-2.0); Eosinophils # 0.4 K/mm3 (0.0-0.4); Eosinophils % 4.5 % (0.1-12.0); Hematocrit 39.9 % (42.0-52.0); Hemoglobin 12.8 g/dL (14.1-18.0); Lymphocytes # 2.4 K/mm3 (0.7-4.5); Lymphocytes % 26.4 % (10-50); Mean Corpuscular Hemoglobin 31.5 pg (27.0-31.2); Mean Corpuscular Volume 98.3 fl (80-94); Mean Platelet Volume 8.4 fl (7.4-10.4); Monocytes # 0.7 K/mm3 (0.1-1.0); Monocytes % 7.5 % (1.7-9.3); Neutrophils # 5.5 K/mm3 (1.8-7.8); Platelet Count 446 K/mm3 (142-424); Red Blood Count 4.06 M/mm3 (4.60-6.20)
[2023-05-16 21:25] LABS: Alanine Aminotransferase 27 U/L (12-78); Albumin Level 4.1 g/dl (3.5-5.0); Albumin/Globulin Ratio 1.2 (1.1-1.8); Alkaline Phosphatase 87 U/L (38-126); Anion Gap 13.1 mEq/L (5-15); Aspartate Amino Transferase 28 U/L (17-59); Bilirubin,Total 0.2 mg/dl (0.2-1.3); Blood Urea Nitrogen 25 mg/dl (9-20); Calcium 9.2 mg/dl (8.4-10.2); Carbon Dioxide 29 mmol/L (22.0-30.0); Chloride 98 mmol/L (98-107); Chol/HDL Ratio 3.8 (1-3.5); Cholesterol 147 mg/dl (140-200); Estimated Glomerular Filt Rate 85 ml/min (>60); GFR (African American) 103 ML/MIN (>60); Globulin 3.3 g/dL (1.3-3.2); Glucose 86 mg/dl (74-100); HDL Cholesterol 39 mg/dl (40-60); Potassium 5.1 mmoL/L (3.5-5.1); Sodium 135 mmol/L (136-145); Total Protein,Serum 7.4 g/dl (6.3-8.2); Triglycerides 114 mg/dl (30-150); VLDL Cholesterol 23 mg/dL (0-40)
[2023-05-16 21:36] LABS: Direct LDL Cholesterol 88.61 mg/dL (100-129)
[2023-05-16 21:56] LABS: Prostate Specific Ag Screen 0.6 ng/ml (0.0-4.0)
== END ==
PROVIDERS: PCP Internal Medicine; Visit Provider Internal Medicine
DX: I10 Essential (primary) hypertension (principal); E44.0 Moderate protein-calorie malnutrition; Z12.5 Encounter for screening for malignant neoplasm of prostate
CPT/HCPCS: 80053; 80061; 85025; G0103

== ENCOUNTER → 2023-05-22 14:17 | Outpatient (POV) | payer MEDICARE, SELFPAY ==
[2023-05-22 14:44] VITALS: BP 116/84; PULSE 71; RESP 18; O2SAT 92; BMI 16.4
--- NOTE | 2023-05-22 14:55 | EXP.PAIN.SOA ---
[facility] Pain Management SOAP Note Subjective:: Patient is a pleasant 62-year-old male who presents today for follow-up of right supraorbital peripheral nerve block on 04/30/2023. We are currently treating the patient for postherpetic neuralgia of the right supraorbital area. Today he rates his pain a 6 out of 10. Patient denies any new trauma or injury. He does state that the injection did help significantly of more than 50% however only lasted 4 to 5 hours. Patient states that past that point it went back to baseline. Patient states that over time these injections have not been as effective. Patient is interested in any help we may be able to provide. He states that when the pain does flareup it is a burning stinging sensation all around his right pentecostalism and forehead and into his eye. Patient is currently managed with oxycodone 15 mg 4 times a day and Horizant ER 600 mg twice a day from an outside provider. Patient states that this medication helps with his overall chronic pain however does nothing for his neuralgia around his eye. Patient states he has been to [facility] for multiple visits and that he does use an ointment that sometimes will help but it can be hit or miss. His Marck has been reviewed and is appropriate. Review of Systems: General: No recent weight changes, no fever, no sleep disturbances Respiratory: No cough, no shortness of air, no recurring pulmonary infections Cardiovascular/peripheral vascular: No chest pain, no palpitations, no edema, no shortness of breath Gastrointestinal: No new onset incontinence, normal bowel movements reported Genitourinary: No new onset incontinence Musculoskeletal: Right eye pain Psychiatric: [Normal mood/affect] Neurological: [Denies weakness in extremities], [denies balance issues] Objective:: Physical Exam: General: Alert and oriented x3, no acute distress, pleasant and cooperative Lungs: Respirations even and unlabored, symmetrical chest expansion Eyes: PERRL Musculoskeletal: Flexion and extension of cervical [spine] somewhat guarded secondary to pain Neurological: Speech clear, no gross sensory deficit Assessment:: Right supraorbital postherpetic neuralgia Plan:: Patient continues to experience significant flareups with his postherpetic neuralgia. I have discussed with the patient that I will send in a 7-day supply of prednisone 20 mg twice daily. I have discussed with the patient and he states he is only planning on using this for the occasional flareups as needed. Patient will return to clinic in 1 month for reevaluation of symptoms and plan of care. Patient has been instructed to contact the clinic with any concerns before the next appointment. Dr. Murcia has reviewed this note and agrees with this plan of care. This note was dictated using voice recognition software and make contain errors or omissions. [facility] Disclaimer: The information contained in this section may have been updated after the patient was seen, as this information can be updated by other users. Medical History Abnormal screening computed tomography (CT) of chest Acute respiratory failure with hypoxia Atypical pneumonia CAP (community acquired pneumonia) Cardiomyopathy Chest pain COPD (chronic obstructive pulmonary disease) COPD (chronic obstructive pulmonary disease) with acute bronchitis Diastolic dysfunction Dyspnea Elevated C-reactive protein Elevated left ventricular end-diastolic pressure (LVEDP) Emphysema/COPD Encounter for screening for malignant neoplasm of lung in current smoker with 30 pack year history or greater Eye pain Herpes zoster ophthalmicus, right eye HLD (hyperlipidemia) HTN (hypertension) Left against medical advice Low body mass index (BMI) Neuropathy Non-STEMI (non-ST elevated myocardial infarction) Nonischemic cardiomyopathy Pain, eye, right Pneumonia due to gram-negative bacteria Poisoning by opiate or related bernard
== END | disposition home or self-care (01) ==
PROVIDERS: PCP Internal Medicine; Visit Provider Nurse Practitioner Family
DX: B02.29 Other postherpetic nervous system involvement (principal)
CPT/HCPCS: 99212; G0463

== ENCOUNTER 2023-05-27 15:27 | Emergency (ER) | payer MEDICARE, SELFPAY ==
[2023-05-27 15:31] VITALS: BP 121/71; PULSE 68; RESP 19; TEMP 36.8; O2SAT 97; BMI 16.7
--- NOTE | 2023-05-27 15:38 | PC.NURSE ---
assessed pt in gal, vs 134/65, 69HR, 91 on RA, pt states a hx of copd, no distress noted at this time, pt aware as soon as room is available he will be put into a room
[2023-05-27 17:00] VITALS: BP 125/68; PULSE 64; RESP 20; O2SAT 96
--- NOTE | 2023-05-27 17:26 | XR_ITS ---
PROCEDURE INFORMATION: Exam: XR Chest Exam date and time: 05/27/2023 6:11 PM Age: 62 years old Clinical indication: Smoker's cough; Additional info: Copd, SOA, right side pain TECHNIQUE: Imaging protocol: Radiologic exam of the chest. Views: 1 view. COMPARISON: 1. CT LUNG SCREENING 06/13/2022 3:23 PM 2. CR XR CHEST 2V 02/24/2022 8:12 PM FINDINGS: Lungs: Mild reticular opacities at both lung bases. Hyperinflated lungs consistent with emphysema. Pleural spaces: Normal No pleural effusion. No pneumothorax. Heart/Mediastinum: Normal. No cardiomegaly. Bones/joints: Old healed bilateral rib fractures. Cervical spine fusion hardware in place. IMPRESSION: 1. Mild bibasilar reticular opacities at both lung bases could be due to atelectasis or atypical pneumonia. 2. Hyperinflated lungs consistent with emphysema.
--- NOTE | 2023-05-27 17:27 | HMH.EDGENADL ---
Discharge Plan Disposition Patient Disposition: Home, Self-Care Prescriptions Prescriptions: New prednisone 50 mg tablet 50 mg PO DAILY 5 Days Qty: 5 0RF amoxicillin-pot clavulanate 875-125 mg tablet 1 tab PO BID 5 Days Qty: 10 0RF azithromycin 250 mg tablet See Rx Instructions .ROUTE .COMPLEX Qty: 6 0RF Rx Instructions: For 250 mg dose pack: take 500 mg today (day 1), then 250 mg for 4 days (days 2-5) No Action ipratropium-albuterol 0.5 mg-3 mg(2.5 mg base)/3 mL solution for nebulization 3 ml IH QID PRN (Reason: shortness of breath or wheezing) Qty: 180 2RF albuterol sulfate 90 mcg/actuation HFA aerosol inhaler 2 inh inhalation QID PRN (Reason: shortness of breath or wheezing) 90 Days Qty: 8.5 2RF atorvastatin 10 mg tablet 20 mg PO DAILY 90 Days Qty: 180 2RF aspirin [Adult Aspirin Regimen] 81 mg tablet,delayed release (DR/EC) 81 mg PO DAILY Qty: 30 2RF gabapentin 800 mg tablet 1,200 mg PO TID 30 Days Qty: 135 1RF oxycodone 15 mg tablet 15 mg PO QID PRN (Reason: neuropathy, back pain, chronic) 30 Days Qty: 120 0RF carvedilol 3.125 mg tablet 3.125 mg PO BID Qty: 180 1RF duloxetine 30 mg capsule,delayed release(DR/EC) 30 mg PO BID Qty: 60 3RF tizanidine 4 mg tablet 6 mg PO TID 60 Days Qty: 270 1RF sacubitril-valsartan 24-26 mg tablet 1 tab PO BID Qty: 180 0RF Stiolto Respimat 2.5-2.5 mcg/actuation mist 2 puff inhalation DAILY Referrals Follow up/Referrals: Vikas Rizo DO [Primary Care Provider] - See instructions Activity Restrictions/Add. Instructions Additional Instructions/Restrictions: No evidence of pneumonia on x-ray. Please take antibiotics and steroids as prescribed for COPD exacerbation. Please follow-up with your primary care provider. Please return to the emergency department if you develop any new or worsening symptoms or become concerned for your health. Clinical Impressions Clinical Impression: COPD exacerbation Discharge ED Provider: [place] General Adult HPI General Chief complaint: Shortness of Breath/Dyspnea Stated complaint: Difficulty breathing Time Seen by Provider: 05/27/23 17:22 Mode of Arrival: Family Vehicle Source of Information: Patient and Medical Record Limitations: No Limitations Description of Symptoms (Recalled from ER Triage Doc. by RN): Pt c/o exertional SOA. States he was seen at Dr. Rizo's office and was told to come to the hospital for a chest xray. He has been using neb treatments and these do help. Denies any SOA now. He does not use any oxygen. Denies any chest pain. Denies any fever, chills, or body aches. History of Present Illness HPI narrative: 62-year-old male, history of COPD presents with worsening shortness of breath for the last few days. Reports cough is productive of phlegm. Denies fever at home. He was seen in PCP today and asked presents to the ED for further evaluation. He denies significant chest pain. Is not oxygen dependent at home. Related Data Home Medications Medication Instructions Recorded Confirmed tiotropium 2.5 mcg-olodaterol 2.5 2 puff inhalation DAILY Breathing 03/07/23 05/27/23 mcg/actuation mist for inhalation Problems (Stiolto Respimat) Previous Rx's Medication Instructions Recorded carvedilol 3.125 mg tablet 3.125 mg PO BID Hypertension #180 12/03/22 tabs albuterol sulfate 90 mcg/actuation 2 inh inhalation QID PRN shortness 12/20/22 aerosol inhaler of breath or wheezing 90 days #8.5 grams ipratropium 0.5 mg-albuterol 3 mg 3 ml inhalation QID PRN shortness 12/20/22 (2.5 mg base)/3 mL nebulization of breath or wheezing #180 mL soln duloxetine 30 mg capsule,delayed 30 mg PO BID MOOD #60 caps 02/12/23 release tizanidine 4 mg tablet 6 mg PO TID Pain 60 days #270 tabs 04/30/23 aspirin 81 mg tablet,delayed 81 mg PO DAILY #30 tabs 05/02/23 release (Adult Aspirin Regimen) atorvastatin 10 mg tablet 20 mg PO DAILY 90 days #1
[2023-05-27 17:53] VITALS: PULSE 61; PULSE 69
[2023-05-27 18:52] VITALS: BP 124/71; PULSE 62; RESP 20; TEMP 36.8; O2SAT 96
== END 2023-05-27 18:54 | disposition home or self-care (01) ==
PROVIDERS: Emergency Provider Emergency Medicine; PCP Internal Medicine
DX: J44.1 Chronic obstructive pulmonary disease with (acute) exacerbation (principal); R06.02 Shortness of breath; R05.9 Cough, unspecified; I10 Essential (primary) hypertension; E78.5 Hyperlipidemia, unspecified; G62.9 Polyneuropathy, unspecified; I42.8 Other cardiomyopathies; Z87.891 Personal history of nicotine dependence
CPT/HCPCS: 71045; 99284

== ENCOUNTER → 2023-06-06 09:36 | Outpatient (CLI) | payer MEDICARE, SELFPAY ==
[2023-06-06 23:30] LABS: Amphetamine/Metha Screen,Urine Negative ng/ml (<1000)
[2023-06-06 23:31] LABS: Barbiturates Screen,Urine Negative ng/ml (<200); Benzodiazepines Screen,Urine Negative ng/ml (<200)
[2023-06-06 23:32] LABS: Cannabinoid Screen,Urine Negative ng/ml (<50)
[2023-06-06 23:33] LABS: Cocaine Screen,Urine Negative ng/ml (<300); Methadone Screen,Urine Negative ng/ml (<300)
[2023-06-06 23:34] LABS: Opiate Screen,Urine Negative ng/ml (<300); Phencyclidine Screen,Urine Negative ng/ml (<25)
== END ==
PROVIDERS: PCP Internal Medicine; Visit Provider Internal Medicine
DX: G89.29 Other chronic pain (principal); Z79.899 Other long term (current) drug therapy
CPT/HCPCS: 80305

== ENCOUNTER → 2023-06-19 14:14 | Outpatient (POV) | payer MEDICARE, SELFPAY ==
--- NOTE | 2023-06-19 16:00 | EXP.PAIN.SOA ---
[facility] Pain Management SOAP Note Subjective:: Patient is a pleasant 62-year-old male who presents today for follow-up. We are currently treating the patient for postherpetic neuralgia of right supraorbital area. Today he rates his pain a 7 out of 10. Patient denies any new trauma or injury. He does state he continues to experience severe pain with itching and burning sensations all around his right methodist, forehead and right eye. Patient has been experiencing the symptoms over the last 3 years. Previously he did get significant relief from peripheral nerve blocks however over the last 2 injections he had less and less improvement with the last injection only providing 50% relief and lasting 4 to 5 hours. Patient does state that he cannot do anything due to the worsening pain symptoms that it is debilitating. Patient is currently managed with oxycodone 15 mg 4 times a day and Horizant ER 600 mg twice a day from an outside provider. Patient denies any side effects from this medication. His Marck has been reviewed and is appropriate. Review of Systems: General: No recent weight changes, no fever, no sleep disturbances Respiratory: No cough, no shortness of air, no recurring pulmonary infections Cardiovascular/peripheral vascular: No chest pain, no palpitations, no edema, no shortness of breath Gastrointestinal: No new onset incontinence, normal bowel movements reported Genitourinary: No new onset incontinence Musculoskeletal: Right methodist, right forehead, right eye pain Psychiatric: [Normal mood/affect] Neurological: [Denies weakness in extremities], [denies balance issues] Objective:: Physical Exam: General: Alert and oriented x3, no acute distress, pleasant and cooperative Lungs: Respirations even and unlabored, symmetrical chest expansion Eyes: PERRL Musculoskeletal: Flexion and extension of cervical [spine] somewhat guarded secondary to pain, [antalgic gait noted] Neurological: Speech clear, no gross sensory deficit Assessment:: Postherpetic neuralgia right supraorbital Plan:: Patient continues to experience significant pain related to postherpetic neuralgia around his right supraorbital area including his methodist and forehead. I have discussed with the patient that I will send him for evaluation to Dr. Rodrigues in [place] for possible Botox intervention. I will also increase his duloxetine to 60 mg twice daily and provide a 2-week supply of this medication. Patient will return to clinic in 2 weeks for follow-up with Dr. Murcia for reevaluation of symptoms and plan of care. Patient has been instructed to contact the clinic with any concerns before the next appointment. Dr. Murcia has reviewed this note and agrees with this plan of care. This note was dictated using voice recognition software and make contain errors or omissions. [facility] Disclaimer: The information contained in this section may have been updated after the patient was seen, as this information can be updated by other users. Medical History Abnormal screening computed tomography (CT) of chest Acute respiratory failure with hypoxia Atypical pneumonia CAP (community acquired pneumonia) Cardiomyopathy Chest pain COPD (chronic obstructive pulmonary disease) COPD (chronic obstructive pulmonary disease) with acute bronchitis Diastolic dysfunction Dyspnea Elevated C-reactive protein Elevated left ventricular end-diastolic pressure (LVEDP) Emphysema/COPD Encounter for screening for malignant neoplasm of lung in current smoker with 30 pack year history or greater Eye pain Herpes zoster ophthalmicus, right eye HLD (hyperlipidemia) HTN (hypertension) Left against medical advice Low body mass index (BMI) Neuropathy Non-STEMI (non-ST elevated myocardial infarction) Nonischemic cardiomyopathy Pain, eye, right Pneumonia due to gram-negative bacteria Poisoning by opiate or related narcotic Postherpetic neuralgia Postherpetic trigeminal neuralgia Radu is seeing Dr. 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 These do work as to the medications I described above. Preoperative clearance Rhinovirus infection Shingles SIRS (systemic inflammatory response syndrome) Tobacco dependence syndrome Upper respiratory infection Surgical History H/O cardiac catheterization H/O cervical spine surgery Family History Mother Lung cancer Family history of acute congestive heart failure Father Lung cancer Family history of acute congestive heart failure Social History Smoking Status: Former smoker tobacco type: cigarettes packs per day: 1 smoking status stop date: december 2021 second hand exposure: Yes alcohol intake: current substance use type: denies use current occupational status: disabled Travel in the last 8 weeks: None household members: children housing: house marital status: current occupational exposures/hazards: No pets and animals: No caffeine: Yes
[2023-06-19 16:06] VITALS: BP 117/96; PULSE 87; RESP 18; O2SAT 91; BMI 16.2
== END | disposition home or self-care (01) ==
PROVIDERS: PCP Internal Medicine; Visit Provider Nurse Practitioner Family
DX: B02.29 Other postherpetic nervous system involvement (principal)
CPT/HCPCS: 99212; G0463

== ENCOUNTER 2023-06-27 14:09 | Outpatient (CLI) | payer MEDICARE, MEDICAID, SELFPAY ==
--- NOTE | 2023-06-27 14:10 | US_ITS ---
FINAL REPORT CLINICAL HISTORY: rt axillary lymph node FINDINGS: Limited sonographic images of the right axilla were obtained. There are multiple small and borderline sized axillary nodes measuring up to 1.5 cm which are nonspecific, favor reactive. IMPRESSION: Axillary nodes favored to be reactive. Reviewed, Interpreted and Dictated by Leon Berry III, MD Transcribed by Lilian Macias Authenticated and [facility]
--- NOTE | 2023-06-27 14:10 | US_ITS ---
FINAL REPORT CLINICAL HISTORY: mass in breast FINDINGS: Limited sonographic images of the left axilla were obtained. There are multiple small and borderline size axillary nodes measuring up to 1.3 cm which are nonspecific, favor reactive or neoplastic. IMPRESSION: Axillary nodes which are nonspecific, favor reactive or neoplastic. Reviewed, Interpreted and Dictated by Leon Berry III, MD Transcribed by Lilian Macias Authenticated and [facility]
== END 2023-06-27 23:59 ==
LOC: RAD 14:10
PROVIDERS: PCP Internal Medicine; Visit Provider Surgery
DX: N63.20 Unspecified lump in the left breast, unspecified quadrant (principal); N63.10 Unspecified lump in the right breast, unspecified quadrant
CPT/HCPCS: 76882

== ENCOUNTER 2023-07-10 14:47 | Outpatient (CLI) | payer MEDICARE, MEDICAID, SELFPAY ==
--- NOTE | 2023-07-10 14:47 | MR_ITS ---
FINAL REPORT CLINICAL HISTORY: pain FINDINGS: Multiplanar MR imaging of the lumbar spine was performed without contrast. On the sagittal T2-weighted images, there is abnormal decreased signal throughout the lumbar discs. There is slight indentation of the superior endplate of L4 without bone marrow edema, suggesting a chronic mild compression fracture. The vertebral alignment is normal. L1-2: There are small right and left paracentral disc protrusions, with mild bilateral lateral recess narrowing and moderate left neural foraminal narrowing. L2-3: There is a moderate annular bulge present with moderate bilateral neural foraminal narrowing. L3-4: There is a moderate annular bulge present with moderate bilateral neural foraminal narrowing. L4-5: There is a moderate bulge present with bilateral facet osteoarthropathy, severe right and moderate to severe left neural foraminal narrowing. L5-S1: There is a moderate bulge present with endplate hypertrophy and severe bilateral neural foraminal narrowing. IMPRESSION: Multilevel lumbar degenerative change, with moderate to severe bilateral neural foraminal narrowing, particularly at the L4-5 and L5-S1 levels. Reviewed, Interpreted and Dictated by Caleb Mendiola MD Transcribed by Glenda Bojorquez Authenticated and [facility]
== END 2023-07-10 23:59 ==
LOC: RAD 14:47
PROVIDERS: PCP Internal Medicine; Visit Provider Internal Medicine
DX: M54.50 Low back pain, unspecified (principal)
CPT/HCPCS: 72148; 76376

== ENCOUNTER 2023-08-05 19:27 | Outpatient (CLI) | payer MEDICARE, MEDICAID, SELFPAY ==
[2023-08-05 18:49] LABS: Basophils # 0.1 K/mm3 (0-0.2); Basophils % 0.9 % (0.1-2.0); Eosinophils # 0.3 K/mm3 (0.0-0.4); Eosinophils % 4.4 % (0.1-12.0); Hematocrit 41.9 % (42.0-52.0); Hemoglobin 13.8 g/dL (14.1-18.0); Lymphocytes # 1.7 K/mm3 (0.7-4.5); Lymphocytes % 24.3 % (10-50); Mean Corpuscular HGB Conc 32.9 g/dL (31.8-35.4); Mean Corpuscular Hemoglobin 30.6 pg (27.0-31.2); Mean Corpuscular Volume 93.1 fl (80-94); Mean Platelet Volume 8.8 fl (7.4-10.4); Monocytes # 0.5 K/mm3 (0.1-1.0); Neutrophils # 4.5 K/mm3 (1.8-7.8); Neutrophils % 63.4 % (37.0-80.0); Platelet Count 402 K/mm3 (142-424); Red Cell Distribution Width 14.3 % (11.5-17.5); White Blood Count 7.1 K/mm3 (4.8-10.8)
[2023-08-05 19:31] LABS: Vitamin B12 802 pg/mL (239-931)
== END 2023-08-05 23:59 ==
LOC: LAB.DROPOF 19:28
PROVIDERS: PCP Internal Medicine; Visit Provider Internal Medicine
DX: E44.0 Moderate protein-calorie malnutrition (principal); J44.9 Chronic obstructive pulmonary disease, unspecified; I42.8 Other cardiomyopathies
CPT/HCPCS: 82607; 82728; 85025

== ENCOUNTER 2023-08-20 18:47 | Outpatient (CLI) | payer MEDICARE, MEDICAID, SELFPAY ==
[2023-08-20 18:51] LABS: Basophils # 0.1 K/mm3 (0-0.2); Basophils % 0.5 % (0.1-2.0); Eosinophils # 0.1 K/mm3 (0.0-0.4); Eosinophils % 1.5 % (0.1-12.0); Hematocrit 40.5 % (42.0-52.0); Hemoglobin 12.8 g/dL (14.1-18.0); Lymphocytes # 1.8 K/mm3 (0.7-4.5); Lymphocytes % 19.4 % (10-50); Mean Corpuscular HGB Conc 31.6 g/dL (31.8-35.4); Mean Corpuscular Hemoglobin 30.9 pg (27.0-31.2); Mean Corpuscular Volume 97.9 fl (80-94); Mean Platelet Volume 7.4 fl (7.4-10.4); Monocytes # 0.6 K/mm3 (0.1-1.0); Neutrophils # 6.7 K/mm3 (1.8-7.8); Neutrophils % 72.7 % (37.0-80.0); Platelet Count 448 K/mm3 (142-424); Red Blood Count 4.14 M/mm3 (4.60-6.20); Red Cell Distribution Width 14.7 % (11.5-17.5); White Blood Count 9.3 K/mm3 (4.8-10.8)
[2023-08-22 17:59] LABS: Peripheral Smear Review Scanned Result
== END 2023-08-20 23:59 ==
LOC: LAB.DROPOF 18:47
PROVIDERS: PCP Internal Medicine; Visit Provider Internal Medicine
DX: J44.1 Chronic obstructive pulmonary disease with (acute) exacerbation (principal); I10 Essential (primary) hypertension; E78.5 Hyperlipidemia, unspecified; Z87.891 Personal history of nicotine dependence
CPT/HCPCS: 85025

== ENCOUNTER 2023-09-19 14:05 | Outpatient (CLI) | payer MEDICARE, MEDICAID, SELFPAY ==
[2023-09-19 14:26] LABS: Reticulocyte % (Auto) 1.2 % (0.9-3.2)
[2023-09-19 15:16] LABS: Lactate Dehydrogenase 156 U/L (313-618)
[2023-09-19 16:22] LABS: Vitamin B12 863 pg/mL (239-931)
[2023-09-19 17:40] LABS: Iron 96 ug/dL (49-181)
[2023-09-19 17:50] LABS: Total Iron Binding Capacity 326 ug/dL (261-462)
[2023-09-19 18:17] LABS: Ferritin 45.9 ng/ml (17.9-464)
[2023-09-20 13:34] LABS: Haptoglobin 242 mg/dL (32-363)
== END 2023-09-19 23:59 ==
LOC: LAB 14:06
PROVIDERS: PCP Internal Medicine; Visit Provider Internal Medicine Medical Oncology
DX: D50.9 Iron deficiency anemia, unspecified (principal); Z68.1 Body mass index [BMI] 19.9 or less, adult
CPT/HCPCS: 36415; 82607; 82728; 82746; 83010; 83540; 83550; 83615; 85044; 86880

== ENCOUNTER 2023-10-05 20:09 | Emergency (ER) | payer MEDICARE, MEDICAID, SELFPAY ==
[2023-10-05 20:10] VITALS: BP 120/71; PULSE 77; RESP 22; TEMP 36.9; O2SAT 79; BMI 15.4
--- NOTE | 2023-10-05 20:18 | ECG_ITS ---
APPROVED REPORT Exam: Resting ECG HR:74 bpm ECG Measurements Heart Rate 74 AXES LA 138 P 84 QRSd 90 QRS 81 QT 384 T 74 QTc 411 Conclusion SINUS RHYTHM NORMAL ECG UNCONFIRMED REPORT Electronically signed by : NICKI MONTES, 10/07/2023 03:00:47
--- NOTE | 2023-10-05 20:19 | XR_ITS ---
PROCEDURE INFORMATION: Exam: XR Chest Exam date and time: 10/05/2023 8:34 PM Age: 63 years old Clinical indication: Shortness of breath; Additional info: SOA TECHNIQUE: Imaging protocol: Radiologic exam of the chest. Views: 1 view. COMPARISON: CR XR CHEST PORTABLE 05/27/2023 6:11 PM FINDINGS: Lungs: There is some parenchymal consolidation involving the peripheral left lower lobe. There are patchy reticulonodular opacities throughout the lungs which are similar to prior. Pleural spaces: No large effusion or pneumothorax. Heart/Mediastinum: Stable cardiac and mediastinal contours. Bones/joints: There is partially visualized cervical spine surgical hardware. IMPRESSION: There is some parenchymal consolidation involving the peripheral left lower lobe.
--- NOTE | 2023-10-05 20:22 | PC.NURSE ---
Patient noted to be 79% spo2 at triage. Placed patient on 2LNC and spo2 88%, titrated to 3LNC and patient at 91% spo2. Immediately notified Dr. Hewitt.
--- NOTE | 2023-10-05 20:33 | PC.NURSE ---
Patients spo2 improved to 98% while at rest, titrated supplemental oxygen off at this time. Patient spo2 94% on RA at this time. Provider wishes to maintain spo2 between 88-92% spo2.
[2023-10-05 20:39] LABS: Basophils # 0.1 K/mm3 (0-0.2); Basophils % 0.7 % (0.1-2.0); Eosinophils # 0.4 K/mm3 (0.0-0.4); Eosinophils % 2.7 % (0.1-12.0); Hematocrit 35.8 % (42.0-52.0); Hemoglobin 11.2 g/dL (14.1-18.0); Lymphocytes # 1.5 K/mm3 (0.7-4.5); Lymphocytes % 11.6 % (10-50); Mean Corpuscular HGB Conc 31.2 g/dL (31.8-35.4); Mean Corpuscular Hemoglobin 29.8 pg (27.0-31.2); Mean Corpuscular Volume 95.3 fl (80-94); Mean Platelet Volume 7.8 fl (7.4-10.4); Monocytes # 0.6 K/mm3 (0.1-1.0); Monocytes % 4.7 % (1.7-9.3); Neutrophils # 10.4 K/mm3 (1.8-7.8); Neutrophils % 80.4 % (37.0-80.0); Platelet Count 665 K/mm3 (142-424); Red Blood Count 3.76 M/mm3 (4.60-6.20); Red Cell Distribution Width 14.7 % (11.5-17.5)
[2023-10-05] MEDS: METHYLPREDNISOLONE SOD SUCC 125MG VIAL 125 MG IV (20:40)
--- NOTE | 2023-10-05 20:42 | PC.NURSE ---
Notified respiratory of ordered nebulizer treatments.
[2023-10-05 20:44] LABS: Chloride 98 mmol/L (98-107); Potassium 4.3 mmoL/L (3.5-5.1); Sodium 135 mmol/L (136-145)
[2023-10-05 20:47] LABS: Alanine Aminotransferase 16 U/L (12-78); Albumin Level 3.7 g/dl (3.5-5.0); Alkaline Phosphatase 120 U/L (38-126); Anion Gap 8.3 mEq/L (5-15); Aspartate Amino Transferase 19 U/L (17-59); Bilirubin,Total 0.5 mg/dl (0.2-1.3); Blood Urea Nitrogen 13 mg/dl (9-20); Carbon Dioxide 33 mmol/L (22.0-30.0); Creatinine Clearance Estimated 57 mL/min (50-200); Estimated Glomerular Filt Rate 97 ml/min (>60); GFR (African American) 117 ML/MIN (>60); Globulin 3.8 g/dL (1.3-3.2); Total Protein,Serum 7.5 g/dl (6.3-8.2)
--- NOTE | 2023-10-05 20:47 | [facility].EDCP ---
Discharge Plan Disposition Patient Disposition: Home, Self-Care Chief Complaint: Shortness of Breath/Dyspnea Prescriptions Prescriptions: No Action aspirin [Adult Aspirin Regimen] 81 mg tablet,delayed release (DR/EC) 81 mg PO DAILY Qty: 30 2RF atorvastatin 10 mg tablet 20 mg PO DAILY 90 Days Qty: 180 2RF duloxetine 60 mg capsule,delayed release(DR/EC) 60 mg PO DAILY 90 Days Qty: 90 4RF gabapentin 800 mg tablet 1,200 mg PO TID 30 Days Qty: 135 2RF Rx Instructions: OK to fill today 06-07-2023 oxycodone 15 mg tablet 15 mg PO QID PRN (Reason: neuropathy, back pain, chronic) 30 Days Qty: 120 0RF Rx Instructions: OK to fill today 06-07-2023 carvedilol 3.125 mg tablet See Rx Instructions .ROUTE .COMPLEX Qty: 180 1RF Dose Instruction: TAKE ONE TABLET BY MOUTH TWICE DAILY FOR HIGH blood pressure Rx Instructions: TAKE ONE TABLET BY MOUTH TWICE DAILY FOR HIGH blood pressure ipratropium-albuterol 0.5 mg-3 mg(2.5 mg base)/3 mL solution for nebulization See Rx Instructions .ROUTE .COMPLEX Qty: 180 2RF Dose Instruction: INHALE THE CONTENTS OF 1 VIAL VIA NEBULIZER FOUR TIMES DAILY NEEDED FOR SHORTNESS OF BREATH OR wheezing Rx Instructions: INHALE THE CONTENTS OF 1 VIAL VIA NEBULIZER FOUR TIMES DAILY NEEDED FOR SHORTNESS OF BREATH OR wheezing sacubitril-valsartan 24-26 mg tablet 1 tab PO BID Qty: 180 3RF Stiolto Respimat 2.5-2.5 mcg/actuation mist 2 puff inhalation DAILY 90 Days Qty: 4 2RF albuterol sulfate 90 mcg/actuation HFA aerosol inhaler 2 inh inhalation QID PRN (Reason: shortness of breath or wheezing) 90 Days Qty: 8.5 2RF Referrals Follow up/Referrals: Vikas Rizo DO [Primary Care Provider] - See instructions Activity Restrictions/Add. Instructions Additional Instructions/Restrictions: Keep oxygen at 4 L and continue monitoring your pulse oximeter for the next week while taking medications. Azithromycin once daily for the next 3 days, Augmentin twice daily for the next 7 days. Call your family doctor to establish care for this visit to the emergency department and schedule follow-up within 48 hours to ensure improvement. If you have any worsening of your condition or any other concerning signs or symptoms, return to the emergency department or your primary care doctor for further evaluation. Clinical Impressions Clinical Impression: Pneumonia, Hypoxemia COPD (chronic obstructive pulmonary disease) Qualifiers: COPD type: emphysema Emphysema type: unspecified Qualified Code(s): J43.9 - Emphysema, unspecified Discharge ED Provider: Steven Hewitt HPI General Chief Complaint: Shortness of Breath/Dyspnea Stated Complaint: SOA, runny nose weak Time Seen by Provider: 10/05/23 20:11 Mode of Arrival: Ambulatory Source of Information: Patient Limitations: No Limitations Description of Symptoms (Recalled from ER Triage Doc. by RN): Patient reports shortness of breath and cough for the past 4-5 days. Patient reports increasing body aches and weakness and that he's just not getting better . Family reports that he has an oxygen tank that he has had for years and uses 2 LNC as needed, and was using it today. History of Present Illness HPI narrative: 63-year-old male history of COPD on oxygen as needed 2 L, not currently smoking, ischemic cardiomyopathy, hyperlipidemia presenting with multiple complaints. Patient states that he has been short of breath with worsening cough for the past 3 to 4 days. Cough is productive of dark sputum. It is usually colorless. Has had bodyaches and generalized weakness. No unilateral weakness. No fevers or chills. Patient was using as needed oxygen more than typical today. Please note that above description of symptoms, in this electronic medical record under categorization of recalled from ER triage doctor by RN are reflective of an initial nursing assessment, however, is not reflective of my full history and physical exam that was personally taken and clarified. Consequentially, this preceding description of symptoms, which may include the patient's categorized chief complaint in the EMR, do not reflect my personal clinical impression, and the ultimate description of history of present illness and patient stated complaints should be deferred to this section of the note. Unless stated otherwise or congruent with this section of the note, additional signs, symptoms, or incongruence should be interpreted as inaccurate with my clinical impression. Related Data Previous Rx's Medication Instructions Recorded aspirin 81 mg tablet,delayed 81 mg PO DAILY #30 tabs 05/02/23 release (Adult Aspirin Regimen) carvedilol 3.125 mg tablet See Rx Instructions .Route 06/06/23 .COMPLEX #180 tabs ipratropium 0.5 mg-albuterol 3 mg See Rx Instructions .Route 07/16/23 (2.5 mg base)/3 mL nebulization .COMPLEX #180 mL soln sacubitril 24 mg-valsartan 26 mg 1 tab PO BID CHF #180 tabs 08/14/23 tablet albuterol sulfate 90 mcg/actuation 2 inh inhalation QID PRN shortness 09/02/23 aerosol inhaler of breath or wheezing 90 days #8.5 grams tiotropium 2.5 mcg-olodaterol 2.5 2 puff inhalation DAILY 90 days #4 09/02/23 mcg/actuation mist for inhalation grams (Stiolto Respimat) atorvastatin 10 mg tablet 20 mg (2 x 10 mg) PO DAILY 90 days 10/01/23 #180 tabs duloxetine 60 mg capsule,delayed 60 mg PO DAILY 90 days #90 caps 10/01/23 release gabapentin 800 mg tablet 1,200 mg (1.5 x 800 mg) PO TID 30 10/01/23 days #135 tabs oxycodone 15 mg tablet 15 mg PO QID PRN neuropathy, back 10/01/23 pain, chronic 30 days #120 tabs Allergies Allergy/AdvReac Type Severity Reaction Status Date / Time methocarbamol [From ROBAXIN] Allergy Unknown Verified 10/05/23 20:50 pregabalin [From LYRICA] Allergy Unknown Verified 10/05/23 20:50 ibuprofen AdvReac Verified 10/05/23 20:50 PFS PFS Disclaimer: The information contained in this section may have been updated after the patient was seen, as this information can be updated by other users. Medical History Postherpetic trigeminal neuralgia Is giving him quite a bit of discomfort. 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 Encounter for screening for malignant neoplasm of lung in current smoker with 30 pack year history or greater Abnormal screening computed tomography (CT) of chest Nonischemic cardiomyopathy Diastolic dysfunction Elevated left ventricular end-diastolic pressure (LVEDP) Acute respiratory failure with hypoxia Non-STEMI (non-ST elevated myocardial infarction) Emphysema/COPD SIRS (systemic inflammatory response syndrome) Pneumonia due to gram-negative bacteria Low body mass index (BMI) COPD (chronic obstructive pulmonary disease) with acute bronchitis Upper respiratory infection Rhinovirus infection HLD (hyperlipidemia) Lipid panel done April 2023 reveals a triglyceride 114 total cholesterol 147 LDL of 88 and HDL 39. This is not a bad panel at all. Patient is taking atorvastatin to 10 mg tablets per day at 20 mg total. Tobacco dependence syndrome Chest pain Cardiomyopathy Dyspnea Preoperative clearance Poisoning by opiate or related narcotic Atypical pneumonia Postherpetic neuralgia Left against medical advice HTN (hypertension) Blood pressures have been routinely less than 130/80 on a regular basis. Today was 120/68. Will continue with the sacubitril/valsartan at 24/26 mg twice a day. Additionally he is taking carvedilol. Elevated C-reactive protein CAP (community acquired pneumonia) COPD (chronic obstructive pulmonary disease) Patient is on both albuterol MDI and ipratropium/albuterol MDI as well as Stiolto MDI. This patient has seen pulmonary in the past and his last visit was May 2022. Will discuss with him when he returns the need for him to follow-up with the inclusion specialist. Pain, eye, right Herpes zoster ophthalmicus, right eye Eye pain Shingles Neuropathy Surgical History H/O cervical spine surgery H/O cardiac catheterization Family History Mother Lung cancer Family history of acute congestive heart failure Father Lung cancer Family history of acute congestive heart failure Social History Smoking Status: Former smoker tobacco type: cigarettes packs per day: 1 smoking status stop date: december 2021 second hand exposure: Yes alcohol intake: current substance use type: denies use current occupational status: disabled Travel in the last 8 weeks: None household members: children housing: house marital status: current occupational exposures/hazards: No pets and animals: No caffeine: Yes ROS Obtained: Yes All systems reviewed & no additional complaints except as documented Physical Exam General General appearance: alert Neck Neck exam: Present trachea midline Chest Chest inspection: Present normal inspection and symmetric chest wall rise Respiratory Respiratory exam: Present wheezes and prolonged expiratory phase; Absent respiratory distress, stridor or accessory muscle use Cardiovascular Cardiovascular exam: Present regular rate and normal rhythm Extremities Exam Extremities exam: Absent edema Neurological Exam Neurological exam: Present alert, oriented X3 and CN II-XII intact Skin Skin exam: Present warm and dry; Absent cyanosis, diaphoresis or pallor HEART Score HEART Score HEART Score assessment performed?: Yes HEART Score: 4 Critical Care Critical Care Time Critical Care Time: No Medical Decision Making Medical Records Medical records reviewed: Yes I reviewed the patient's medical records. Marck Inquiry Pt receiving controlled substance: No Marck was queried for this patient: No Vital Signs Vital Signs: 10/05/23 20:10 Temperature 98.4 F Temperature Source Oral Pulse Rate [Left Radial] 77 Respiratory Rate 22 Blood Pressure [Right Arm] 120/71 Blood Pressure Mean [Right Arm] 87 02 Sat by Pulse Oximetry 79 L Oxygen Delivery Method Room Air Lab Data Labs: Lab Results 10/05/23 20:29: WBC 13.0 H, RBC 3.76 L, Hgb 11.2 L, Hct 35.8 L, MCV 95.3 H, MCH 29.8, MCHC 31.2 L, RDW 14.7, Plt Count 665 H, MPV 7.8, Neut % (Auto) 80.4 H, Lymph % (Auto) 11.6, [place] % (Auto) 4.7, Eos % (Auto) 2.7, Baso % (Auto) 0.7, Neut # (Auto) 10.4 H, Lymph # (Auto) 1.5, [place] # (Auto) 0.6, Eos # (Auto) 0.4, Baso # (Auto) 0.1, Sodium 135 L, Potassium 4.3, Chloride 98, Carbon Dioxide 33 H, Anion Gap 8.3, BUN 13, Creatinine 0.80, Estimated Creat Clear 57, Estimated GFR 97, Est GFR ( Amer) 117, Glucose 127 H, Calcium 9.2, Total Bilirubin 0.5, AST 19, ALT 16, Alkaline Phosphatase 120, Troponin I < 0.01, NT-Pro-B Natriuret Pep 150 H, Total Protein 7.5, Albumin 3.7, Globulin 3.8 H, Albumin/Globulin Ratio 1.0 L 10/05/23 20:29 10/05/23 20:29 Response Orders (Tests/Meds): ED MEDICATIONS Discontinued Medications Generic Name Dose Route Start Last Admin Trade Name Freq PRN Reason Stop Dose Admin Albuterol/Ipratropium 9 ml 10/05/23 20:18 Ipratropium/Albuterol 3 Ml Neb IH 10/05/23 20:19 ONCE ONE Methylprednisolone Sodium Succinate 125 mg 10/05/23 20:18 10/05/23 20:40 Methylprednisolone Sod Succ 125mg Vial IV 10/05/23 20:19 125 mg ONCE ONE Administration ORDERS Category Date Time Status CXR --portable [XR chest portable] Stat Exams 10/05/23 20:19 Completed CBC w/Auto Diff [Complete Blood Count Auto Diff] Stat Lab 10/05/23 20:29 Completed CMP [Comprehensive Metabolic Panel] Stat Lab 10/05/23 20:29 Completed NT Pro Brain Natriuretic Pep. Stat Lab 10/05/23 20:29 Completed Trop I [Troponin I] Stat Lab 10/05/23 20:29 Completed Troponin I Q3H Lab 10/05/23 23:30 Ordered Troponin I Q3H Lab 10/06/23 02:30 Ordered MDM Narrative Medical Decision Narrative: 63-year-old male history of COPD on oxygen as needed 2 L, not currently smoking, ischemic cardiomyopathy, hyperlipidemia presenting with multiple complaints. Patient states that he has been short of breath with worsening cough for the past 3 to 4 days. Cough is productive of dark sputum. It is usually colorless. Has had bodyaches and generalized weakness. No unilateral weakness. No fevers or chills. Patient was using as needed oxygen more than typical today. History was obtained via conversation with patient. On arrival, patient hemodynamically stable, alert, oriented x4, appropriate, GCS 15, moving all extremities spontaneously, pupils equal and reactive to light. Full physical exam performed and significant for patient's cardiac exam within normal limits. Pulses equal and symmetric. No pulsatile abdominal mass. He does have diffuse bilateral end expiratory wheezes. No focal breath sounds. After ambulatory saturation, around 80%, not needing oxygen at rest. Unknown if this is patient's baseline, but it is certainly possible. Differential includes COPD exacerbation, CHF exacerbation, pneumonia, bronchitis, pneumothorax, PE, among others. Patient was given DuoNeb, Solu-Medrol for symptomatic management and correction of underlying abnormalities. Workup independently interpreted and significant for leukocytosis 13,000 with neutrophilic shift. Nonactionable chemistry. Troponin and BNP nonactionable. Chest x-ray with concern for developing left lower lobe consolidation. See radiology read for full review of final results. Independent interpretation of EKG shows sinus rhythm 74 beats a minute no ST or T wave changes concerning for acute ischemia. [place], QRS, QT intervals within normal limits. [place] normal. Patient placed on continuous cardiac monitoring and continuous pulse ox with initial blood pressure 120/71, heart rate 77, saturation 90% on room air after rest. On reevaluation, patient feeling much better, still wheezing, but able to be kept off oxygen at rest. With any exertion, dropping into the mid to high 80s. Patient given Augmentin and azithromycin. Extensive conversation had with patient and patient's daughter. Home-going versus admission to the hospital was discussed. After thorough discussion of risks and benefits, patient opting for home-going because he has oxygen at home. It was recommended that he keep his oxygen up at 4 L and continue to monitor his oxygen with his new pulse oximeter and to return if symptoms get worse. He voiced his understanding and was agreeable to this plan. Given patient presentation, workup, history, this most likely represents COPD exacerbation in the setting of left lower lobe pneumonia with hypoxemia. Because patient at baseline without signs or symptoms of clinical decompensation, deemed appropriate for discharge. Results were relayed to patient who voiced understanding and were agreeable to outpatient management and follow up. I discussed my clinical impression with patient and answered all questions. At this time, the evidence for any other entities in the differential is insufficient to warrant any further testing or ED observation. This was explained as well. Advisory was given that persistent or worsening symptoms require further evaluation. I confirmed the understanding of this discussion.
[2023-10-05 20:48] LABS: Calcium 9.2 mg/dl (8.4-10.2); Glucose 127 mg/dl (74-100)
[2023-10-05 21:00] VITALS: BP 98/60; PULSE 76; RESP 17; O2SAT 93
[2023-10-05 21:00] LABS: NT Pro Brain Natriuretic Pep. 150 pg/mL (0-125)
[2023-10-05 21:01] LABS: Troponin I < 0.01 ng/ml (0.00-0.034)
[2023-10-05 21:31] VITALS: BP 114/52; PULSE 78; RESP 24; O2SAT 93
[2023-10-05] MEDS: AMOXICILLIN/CLAVULANATE POTASSIUM 875/125MG TABLET 1 EACH PO (21:52)
[2023-10-05] MEDS: AZITHROMYCIN 250MG TABLET 500 MG PO (21:53)
[2023-10-05 22:02] VITALS: BP 114/52; PULSE 77; RESP 21; TEMP 36.9; O2SAT 89
== END 2023-10-05 22:04 | disposition home or self-care (01) ==
PROVIDERS: Emergency Provider Emergency Medicine; PCP Internal Medicine
DX: R09.02 Hypoxemia (principal); J18.9 Pneumonia, unspecified organism; J44.9 Chronic obstructive pulmonary disease, unspecified; R05.8 Other specified cough; I10 Essential (primary) hypertension; E78.5 Hyperlipidemia, unspecified; G62.9 Polyneuropathy, unspecified; Z87.891 Personal history of nicotine dependence; Z99.81 Dependence on supplemental oxygen
CPT/HCPCS: 71045; 80053; 83880; 84484; 85025; 93005; 96374; 99285

== ENCOUNTER 2023-10-07 17:00 | Observation (INO) | payer MEDICARE, MEDICAID, SELFPAY ==
[2023-10-07 17:01] VITALS: BP 122/80; PULSE 68; RESP 18; TEMP 36.5; O2SAT 93; BMI 15.4
--- NOTE | 2023-10-07 17:06 | ECG_ITS ---
APPROVED REPORT Exam: Resting ECG HR:63 bpm ECG Measurements Heart Rate 63 AXES [place] 134 P 82 QRSd 86 QRS 79 QT 396 T 77 QTc 404 Conclusion SINUS RHYTHM POSSIBLE ANTERIOR MYOCARDIAL INFARCTION , OF INDETERMINATE AGE [30 ms Q WAVE IN V3/V4, OR R < 0.2 mV IN V4] Electronically signed by : MCKINLEY MATTHEWS, 10/07/2023 23:55:28
--- NOTE | 2023-10-07 17:29 | XR_ITS ---
PROCEDURE INFORMATION: Exam: XR Chest Exam date and time: 10/07/2023 5:31 PM Age: 63 years old Clinical indication: Cough; Additional info: Cough, SOA TECHNIQUE: Imaging protocol: Radiologic exam of the chest. Views: 1 view. COMPARISON: CR XR CHEST PORTABLE 10/05/2023 8:34 PM FINDINGS: Lungs: Persistent focal interstitial infiltrate within the left lung base , slightly improved. No definite acute infiltrates. The lungs are moderately hyperexpanded consistent with COPD. Pleural spaces: Unremarkable. No pleural effusion. No pneumothorax. Heart/Mediastinum: The heart size is within normal limits. Bones/joints: Old healed right posterior 6th rib fracture. IMPRESSION: 1. Persistent focal interstitial infiltrate within the left lung base , slightly improved. 2. No definite acute infiltrates. 3. Moderate COPD .
--- NOTE | 2023-10-07 17:34 | PC.NURSE ---
DR MATTHEWS AT BEDSIDE
--- NOTE | 2023-10-07 17:35 | PC.NURSE ---
XR AT BEDSIDE
[2023-10-07 17:40] LABS: Basophils % 0.2 % (0.1-2.0); Eosinophils # 0.1 K/mm3 (0.0-0.4); Eosinophils % 0.3 % (0.1-12.0); Hematocrit 35.1 % (42.0-52.0); Hemoglobin 11.4 g/dL (14.1-18.0); Lymphocytes # 0.9 K/mm3 (0.7-4.5); Lymphocytes % 6.2 % (10-50); Mean Corpuscular HGB Conc 32.4 g/dL (31.8-35.4); Mean Corpuscular Hemoglobin 30.4 pg (27.0-31.2); Mean Corpuscular Volume 93.7 fl (80-94); Mean Platelet Volume 7.9 fl (7.4-10.4); Monocytes # 0.4 K/mm3 (0.1-1.0); Monocytes % 2.8 % (1.7-9.3); Neutrophils # 13.1 K/mm3 (1.8-7.8); Neutrophils % 90.4 % (37.0-80.0); Platelet Count 782 K/mm3 (142-424); Red Blood Count 3.74 M/mm3 (4.60-6.20); Red Cell Distribution Width 14.6 % (11.5-17.5); White Blood Count 14.5 K/mm3 (4.8-10.8)
[2023-10-07 17:42] LABS: MANUAL DIFFERENTIAL MANUAL DIFFERENTIAL (MANUAL DIFF)
[2023-10-07] MEDS: IPRATROPIUM/ALBUTEROL 3 ML NEB 9 ML IH (17:42)
[2023-10-07 17:46] LABS: Chloride 102 mmol/L (98-107); Potassium 4.4 mmoL/L (3.5-5.1); Sodium 138 mmol/L (136-145)
[2023-10-07 17:48] LABS: Alanine Aminotransferase 21 U/L (12-78); Aspartate Amino Transferase 21 U/L (17-59); Blood Urea Nitrogen 17 mg/dl (9-20); Creatinine Clearance Estimated 57 mL/min (50-200); Estimated Glomerular Filt Rate 113 ml/min (>60); GFR (African American) 137 ML/MIN (>60)
[2023-10-07 17:49] LABS: Lactate Venous 1.8 mmol/L (0.4-2.0); VBG Base Excess 1.6 mmol/L (-2.4-2.3); VBG HCO3 27.3 mmol/L (23-30); VBG Oxygen Saturation 78.2 % (50-70); VBG PCO2 50.9 mmol/L (35-51); VBG PH 7.35 mmol/L (7.31-7.41); VBG PO2 46.2 mmol/L (28-40); VBG Total CO2 28.8 mmol/L (23-27)
[2023-10-07 17:49] LABS: Albumin Level 3.5 g/dl (3.5-5.0); Alkaline Phosphatase 102 U/L (38-126); Anion Gap 8.4 mEq/L (5-15); Bilirubin,Total 0.4 mg/dl (0.2-1.3); Calcium 9.3 mg/dl (8.4-10.2); Carbon Dioxide 32 mmol/L (22.0-30.0); Globulin 3.5 g/dL (1.3-3.2); Glucose 106 mg/dl (74-100)
--- NOTE | 2023-10-07 17:56 | ED_ITS ---
Discharge Plan Disposition Patient Disposition: Admitted Condition: Good Clinical Impressions Clinical Impression: Acute exacerbation of chronic obstructive pulmonary disease, Pneumonia, Chronic respiratory failure Discharge ED Provider: Sophia Awan General Chief Complaint: Shortness of Breath/Dyspnea Stated Complaint: SOA Time Seen by Provider: 10/07/23 17:11 Mode of Arrival: Wheelchair Limitations: No Limitations Description of Symptoms (Recalled from ER Triage Doc. by RN): PT C/O INCREASED SHORTNESS OF BREATH, RECENTLY EVALUATED IN ED FOR SIMILAR SYMPTOMS. PT DECLINED ADMISSION. REPORTS WEARING HOME O2 AT 4L/NC AND SATS HAD BEEN LOW 78%. HAS BEEN TAKING MEDS DIRECTED. PT ARRIVES WITHOUT WEARING O2, SAT 93% ON ROOM AIR. TALKING IN COMPLETE SENTENCES History of Present Illness HPI narrative: This patient is a 63-year-old male with a history of COPD intermittently on 2 L nasal cannula as needed at home, hypertension, cardiomyopathy, hyperlipidemia, and pneumonia presenting to the emergency department for evaluation with concern for shortness of breath. Patient was evaluated here 2 days ago for similar symptoms and was diagnosed with a COPD exacerbation. He notes that since then, he is continue to have shortness of breath at home and has not been able to get his oxygen up. He typically did not wear her oxygen except as needed, but has been on 4 L nasal cannula since discharge. He notes that if he tries to take it off, he immediately dropped to the 70s to 80s. He notes he has been taking his medications at home as prescribed and been using his nebulizer every 4 hours. He states despite these things, he is still not feeling well. He states he came back because the doctor who saw him 2 days ago wanted to admit him, but he went home instead. Related Data Previous Rx's Medication Instructions Recorded aspirin 81 mg tablet,delayed 81 mg PO DAILY #30 tabs 05/02/23 release (Adult Aspirin Regimen) carvedilol 3.125 mg tablet See Rx Instructions .Route 06/06/23 .COMPLEX #180 tabs ipratropium 0.5 mg-albuterol 3 mg See Rx Instructions .Route 07/16/23 (2.5 mg base)/3 mL nebulization .COMPLEX #180 mL soln sacubitril 24 mg-valsartan 26 mg 1 tab PO BID CHF #180 tabs 08/14/23 tablet albuterol sulfate 90 mcg/actuation 2 inh inhalation QID PRN shortness 09/02/23 aerosol inhaler of breath or wheezing 90 days #8.5 grams tiotropium 2.5 mcg-olodaterol 2.5 2 puff inhalation DAILY 90 days #4 09/02/23 mcg/actuation mist for inhalation grams (Stiolto Respimat) atorvastatin 10 mg tablet 20 mg (2 x 10 mg) PO DAILY 90 days 10/01/23 #180 tabs duloxetine 60 mg capsule,delayed 60 mg PO DAILY 90 days #90 caps 10/01/23 release gabapentin 800 mg tablet 1,200 mg (1.5 x 800 mg) PO TID 30 10/01/23 days #135 tabs oxycodone 15 mg tablet 15 mg PO QID PRN neuropathy, back 10/01/23 pain, chronic 30 days #120 tabs amoxicillin 875 mg-potassium 1 tab PO BID 7 days #14 tabs 10/05/23 clavulanate 125 mg tablet azithromycin 500 mg tablet 500 mg PO DAILY 3 days #3 tabs 10/05/23 prednisone 20 mg tablet 40 mg (2 x 20 mg) PO DAILY 5 days 10/05/23 #10 tabs Allergies Allergy/AdvReac Type Severity Reaction Status Date / Time methocarbamol [From ROBAXIN] Allergy Unknown Verified 10/05/23 20:50 pregabalin [From LYRICA] Allergy Unknown Verified 10/05/23 20:50 ibuprofen AdvReac Verified 10/05/23 20:50 PFSH PFSH Disclaimer: The information contained in this section may have been updated after the patient was seen, as this information can be updated by other users. Medical History Postherpetic trigeminal neuralgia Encounter for screening for malignant neoplasm of lung in current smoker with 30 pack year history or greater Abnormal screening computed tomography (CT) of chest Nonischemic cardiomyopathy Diastolic dysfunction Elevated left ventricular end-diastolic pressure (LVEDP) Acute respiratory failure with hypoxia Non-STEMI (non-ST elevated myocardial infarction) Emphysema/COPD SIRS (systemic inflammatory response syndrome) Pneumonia due to gram-negative bacteria Low body mass index (BMI) COPD (chronic obstructive pulmonary disease) with acute bronchitis Upper respiratory infection Rhinovirus infection HLD (hyperlipidemia) Tobacco dependence syndrome Chest pain Cardiomyopathy Dyspnea Preoperative clearance Poisoning by opiate or related narcotic Atypical pneumonia Postherpetic neuralgia Left against medical advice HTN (hypertension) Elevated C-reactive protein CAP (community acquired pneumonia) COPD (chronic obstructive pulmonary disease) Pain, eye, right Herpes zoster ophthalmicus, right eye Eye pain Shingles Neuropathy Surgical History H/O cervical spine surgery H/O cardiac catheterization Family History Mother Lung cancer Family history of acute congestive heart failure Father Lung cancer Family history of acute congestive heart failure Social History Smoking Status: Former smoker tobacco type: cigarettes packs per day: 1 smoking status stop date: december 2021 second hand exposure: Yes alcohol intake: current substance use type: denies use current occupational status: disabled Travel in the last 8 weeks: None household members: children housing: house marital status: current occupational exposures/hazards: No pets and animals: No caffeine: Yes ROS Obtained: Yes All systems reviewed & no additional complaints except as documented Physical Exam General General appearance: alert and in no apparent distress Head Head exam: atraumatic and normocephalic Eye Eye exam: Present normal appearance, PERRL and EOMI ENT ENT exam: Present normal exam, normal oropharynx, mucous membranes moist and normal external ear exam Neck Neck exam: Present normal inspection, full ROM and trachea midline; Absent tenderness Chest Chest inspection: Present normal inspection and symmetric chest wall rise; Absent tenderness Respiratory Respiratory exam: Present wheezes (Bilateral expiratory wheezing) and other (No increased work of breathing); Absent respiratory distress, stridor or accessory muscle use Cardiovascular Cardiovascular exam: Present regular rate and normal rhythm Abdominal Exam Abdominal exam: Present soft; Absent distention, tenderness or guarding Extremities Exam Extremities exam: Present normal inspection, full ROM and normal capillary refill; Absent tenderness or edema Back Exam Back exam: Present normal inspection and full ROM; Absent tenderness Neurological Exam Neurological exam: Present alert, oriented X3, CN II-XII intact and normal gait; Absent motor sensory deficit Psychiatric Psychiatric exam: Present normal affect and normal mood Skin Skin exam: Present warm and dry HEART Score HEART Score HEART Score assessment performed?: Yes History (anamnesis): Slightly suspicious ECG: Non-specific disturbance Age: 45-65 years Risk factors: Atherosclerosis history Troponin: </= normal limit HEART Score: 4 Critical Care Critical Care Time Critical Care Time: No Medical Decision Making Medical Records Medical records reviewed: Yes I reviewed the patient's medical records. Marck Inquiry Pt receiving controlled substance: No Vital Signs Vital Signs: 10/07/23 17:01 10/07/23 18:00 10/07/23 18:30 Temperature 97.7 F Temperature Source Oral Pulse Rate 65 60 Pulse Rate [Apical] 68 Respiratory Rate 18 Blood Pressure 105/64 L 122/68 Blood Pressure [Right Arm] 122/80 Blood Pressure Mean [Right Arm] 94 Blood Pressure Source [Right Arm] Automatic Cuff Blood Pressure Position [Right Arm] Standing 02 Sat by Pulse Oximetry 93 L 98 96 Oxygen Delivery Method Room Air Nasal Cannula Oxygen Flow Rate (LPM) 2 10/07/23 19:45 Temperature 98.2 F Temperature Source Oral Pulse Rate 61 Pulse Rate [Apical] Respiratory Rate 19 Blood Pressure 106/65 L Blood Pressure [Right Arm] Blood Pressure Mean [Right Arm] Blood Pressure Source [Right Arm] Blood Pressure Position [Right Arm] 02 Sat by Pulse Oximetry Oxygen Delivery Method Nasal Cannula Oxygen Flow Rate (LPM) 2 Lab Data Labs: Lab Results 10/07/23 17:20: WBC 14.5 H, RBC 3.74 L, Hgb 11.4 L, Hct 35.1 L, MCV 93.7, MCH 30.4, MCHC 32.4, RDW 14.6, Plt Count 782 H, MPV 7.9, Neut % (Auto) 90.4 H, Lymph % (Auto) 6.2 L, [place] % (Auto) 2.8, Eos % (Auto) 0.3, Baso % (Auto) 0.2, Neut # (Auto) 13.1 H, Lymph # (Auto) 0.9, [place] # (Auto) 0.4, Eos # (Auto) 0.1, Baso # (Auto) 0.0, Total Counted 100, Neutrophils % (Manual) 91 H, Lymphocytes % (Manual) 8 L, Monocytes % (Manual) 1 L, Platelet Estimate Marked increase, RBC Morphology Normal, Sodium 138, Potassium 4.4, Chloride 102, Carbon Dioxide 32 H, Anion Gap 8.4, BUN 17 D, Creatinine 0.70, Estimated Creat Clear 57, Estimated GFR 113, Est GFR ( Amer) 137, Glucose 106 H, Calcium 9.3, Total Bilirubin 0.4, AST 21, ALT 21 D, Alkaline Phosphatase 102, Troponin I < 0.01, NT-Pro-B Natriuret Pep 237 H, Total Protein 7.0, Albumin 3.5, Globulin 3.5 H, A lbumin/Globulin Ratio 1.0 L 10/07/23 17:29: VBG pH 7.35, VBG pCO2 50.9, VBG pO2 46.2 H, VBG HCO3 27.3, VBG Total CO2 28.8 H, VBG O2 Saturation 78.2 H, VBG Base Excess 1.6, VBG Lactic Acid 1.8 10/07/23 17:20 10/07/23 17:20 Response Orders (Tests/Meds): ED MEDICATIONS Generic Name Dose Route Start Last Admin Trade Name Freq PRN Reason Stop Dose Admin Acetaminophen 650 mg 10/07/23 19:34 Acetaminophen 325mg Tab PO 11/06/23 19:33 Q4HP PRN Fever or Mild Pain (1-3) Albuterol Sulfate 2 puff 10/07/23 22:42 Albuterol-Hfa 90mcg/Puff Inhaler 8gm 11/06/23 22:41 QID PRN shortness of breath or wheezing Albuterol/Ipratropium 3 ml 10/08/23 00:00 Ipratropium/Albuterol 3 Ml Neb 11/07/23 00:00 Q6RT MARCELA Aspirin 81 mg 10/08/23 09:00 Aspirin Ec 81mg Tablet PO 11/07/23 08:59 DAILY MARCELA Atorvastatin Calcium 20 mg 10/08/23 09:00 Atorvastatin 10mg Tablet PO 11/07/23 08:59 DAILY MARCELA Dexamethasone 6 mg 10/07/23 19:45 10/07/23 23:19 Dexamethasone 4mg Tablet PO 11/06/23 19:44 6 mg DAILY MARCELA Administration Docusate Sodium 100 mg 10/07/23 19:45 10/07/23 23:20 Docusate Sodium 100 Mg Capsule PO 11/06/23 19:44 100 mg DAILY MARCELA Administration Doxycycline Hyclate 100 mg 10/07/23 21:00 Doxycycline Hycl 100 Mg Tablet PO 10/17/23 20:59 BID MARCELA Enoxaparin Sodium 40 mg 10/08/23 09:00 Enoxaparin 40mg/0.4ml Syringe SQ 11/07/23 08:59 DAILY [facility] Gabapentin 1,200 mg 10/07/23 23:10 10/07/23 23:29 Gabapentin 800mg Tablet PO 11/06/23 23:09 1,200 mg TID [facility] Administration Miscellaneous 1 unit 10/07/23 22:42 Aerochamber/Optihaler MC 10/07/23 22:43 ONCE ONE Morphine Sulfate 2 mg 10/07/23 19:34 Morphine 2mg/Ml Syringe IV 11/06/23 19:33 Q2HP PRN Severe Pain (7-10) Nicotine 21 mg 10/07/23 19:34 Nicotine 21mg/24hr Patch TD 11/06/23 19:33 DAILYP PRN Nicotine Cravings Non-Formulary Medication 60 mg 10/08/23 09:00 Duloxetine PO 11/07/23 08:59 DAILY [facility] Non-Formulary Medication 15 mg 10/07/23 22:42 10/07/23 23:21 Oxycodone PO 15 mg QID PRN Administration neuropathy, back pain, chronic Non-Formulary Medication 2 puff 10/08/23 09:00 Tiotropium-Olodaterol [Stiolto Respimat] 11/07/23 08:59 DAILY [facility] Ondansetron HCl 4 mg 10/07/23 19:34 Ondansetron 4mg/2ml Vial IV 11/06/23 19:33 Q8HP PRN Nausea Pantoprazole Sodium 40 mg 10/08/23 09:00 Pantoprazole 40mg Tablet PO 11/07/23 08:59 DAILY [facility] Sacubitril/Valsartan 1 each 10/07/23 23:10 Sacubitril/Valsartan 24-26mg Tablet PO 11/06/23 23:09 BID [facility] Discontinued Medications Generic Name Dose Route Start Last Admin Trade Name Freq PRN Reason Stop Dose Admin Albuterol/Ipratropium 9 ml 10/07/23 17:34 10/07/23 17:42 Ipratropium/Albuterol 3 Ml Neb IH 10/07/23 17:35 9 ml ONCE ONE Administration Gabapentin 1,200 mg 10/08/23 09:00 Gabapentin 800mg Tablet PO 11/07/23 08:59 TID [facility] Sacubitril/Valsartan 1 each 10/08/23 09:00 Sacubitril/Valsartan 24-26mg Tablet PO 11/07/23 08:59 BID MARCELA ORDERS Category Date Time Status XR chest portable Stat Exams 10/07/23 17:29 Completed BNP [NT Pro Brain Natriuretic Pep.] Stat Lab 10/07/23 17:20 Completed Complete Blood Count Auto Diff AMLAB Lab 10/08/23 06:00 Ordered Complete Blood Count Auto Diff Stat Lab 10/07/23 17:20 Completed Comprehensive Metabolic Panel AMLAB Lab 10/08/23 06:00 Ordered Comprehensive Metabolic Panel Stat Lab 10/07/23 17:20 Completed Magnesium AMLAB Lab 10/08/23 06:00 Ordered Phosphorous AMLAB Lab 10/08/23 06:00 Ordered Troponin I Q3H Lab 10/07/23 20:40 Completed Troponin I Q3H Lab 10/07/23 23:25 Received Troponin I Stat Lab 10/07/23 17:20 Completed Venous Blood Gas Stat RT 10/07/23 17:29 Completed ECG Data Tracing #1: Attestation: I reviewed this ECG and interpreted as documented below: ECG Narrative: Normal sinus rhythm with a ventricular rate of [address] changes concerning for ischemia. Some motion artifact noted. ECG initial impression date: 10/07/23 ECG initial impression time: 17:07 MDM Narrative Medical Decision Narrative: In summary, this patient is a 63-year-old male presenting to the Emergency Department for evaluation of continued shortness of breath in the setting of recent diagnosis of COPD exacerbation. Differential diagnoses considered include but are not limited to acute exacerbation, respiratory failure, pneumonia, ACS, CHF exacerbation. Ruling out the most morbid conditions drove assessment. On exam, the patient is well-appearing. He has expiratory wheezing, but has no increased work of breathing. His oxygen saturation on my assessment is 93% on room air. Workup included CBC, CMP, troponin, BNP, chest x-ray, and EKG. Patient was given DuoNebs to assess for symptomatic improvement of wheezing and shortness of breath. Will assess ambulatory O2. I independently interpreted x- ray prior to the radiologist read and noted improved airspace disease from prior x-ray. Please see their read for final interpretation. Labs were obtained that demonstrated very mild leukocytosis in the setting of steroid use. Patient was able to ambulate throughout the emergency department on 2 L nasal cannula with no significant drop. I feel that he could be appropriate for discharge home with continued outpatient management, however he states that he is feeling much worse physically and does not feel safe going home. Given this, had an interactive discussion with the hospitalist, who agreed to admit the patient. The patient was admitted for respiratory failure in the setting of COPD exacerbation/pneumonia.
[2023-10-07 18:00] VITALS: BP 105/64; PULSE 65; O2SAT 98
[2023-10-07 18:05] LABS: NT Pro Brain Natriuretic Pep. 237 pg/mL (0-125)
[2023-10-07 18:30] VITALS: BP 122/68; PULSE 60; O2SAT 96
--- NOTE | 2023-10-07 18:39 | PC.NURSE ---
PT AMBULATED IN [place] WITH O2 AT 2L/NC. SAT 91-95%
[2023-10-07 18:50] LABS: Troponin I < 0.01 ng/ml (0.00-0.034)
[2023-10-07 19:08] LABS: Lymphocytes % 8 % (10-50); Monocytes % 1 % (2-9); Neutrophils % 91 % (42-76); Platelet Estimate Marked Increase; RBC Morphology Normal; Total Cells Counted 100
--- NOTE | 2023-10-07 19:33 | P.HP_ITS ---
History of Present Illness *Admission Date: 10/07/23 *Reason for visit:: SOB *History of present illness: This is a 63-year-old male with PMHx of COPD intermittently on 2 L nasal cannula as needed at home, hypertension, cardiomyopathy, hyperlipidemia, presented to the emergency department for evaluation of shortness of breath. Patient was seen at ED 2 days ago for similar symptoms and was diagnosed with a COPD exacerbation. He notes that since then, he is continue to have shortness of breath at home and has not been able to get his oxygen up. He typically did not wear her oxygen except as needed, but has been on 4 L nasal cannula since discharge. He notes that if he tries to take it off, he immediately dropped to the 70s to 80s, specially on excerption He is been taking his medications at home as prescribed and been using his nebulizer every 4 hours, with no improvement, he refused to be admitted last time seen. Because deterioration of symptoms he decided to return to ED for evaluation. admitted for further treatment. [facility] Disclaimer: The information contained in this section may have been updated after the patient was seen, as this information can be updated by other users. Medical History (Updated 10/08/23 @ 11:05 by Cait Marcelo MD) Acute and chronic respiratory failure with hypoxia Postherpetic trigeminal neuralgia Encounter for screening for malignant neoplasm of lung in current smoker with 30 pack year history or greater Abnormal screening computed tomography (CT) of chest Nonischemic cardiomyopathy Diastolic dysfunction Elevated left ventricular end-diastolic pressure (LVEDP) Acute respiratory failure with hypoxia Non-STEMI (non-ST elevated myocardial infarction) Emphysema/COPD SIRS (systemic inflammatory response syndrome) Pneumonia due to gram-negative bacteria Low body mass index (BMI) COPD (chronic obstructive pulmonary disease) with acute bronchitis Upper respiratory infection Rhinovirus infection HLD (hyperlipidemia) Tobacco dependence syndrome Chest pain Cardiomyopathy Dyspnea Preoperative clearance Poisoning by opiate or related narcotic Atypical pneumonia Postherpetic neuralgia Left against medical advice HTN (hypertension) Elevated C-reactive protein CAP (community acquired pneumonia) COPD (chronic obstructive pulmonary disease) Pain, eye, right Herpes zoster ophthalmicus, right eye Eye pain Shingles Neuropathy Surgical History H/O cervical spine surgery H/O cardiac catheterization Family History Mother Lung cancer Family history of acute congestive heart failure Father Lung cancer Family history of acute congestive heart failure Social History Smoking Status: Former smoker tobacco type: cigarettes packs per day: 1 smoking status stop date: december 2021 second hand exposure: Yes alcohol intake: current substance use type: denies use current occupational status: disabled Travel in the last 8 weeks: None household members: children housing: house marital status: current occupational exposures/hazards: No pets and animals: No caffeine: Yes Review of Systems Review of Systems Review of systems:: pertinent systems reviewed and negative unless documented below Meds Home Medications and Allergies Home Medications Medication Instructions Recorded Confirmed Type aspirin 81 mg tablet,delayed 81 mg PO DAILY #30 tabs 05/02/23 10/07/23 Rx release (Adult Aspirin Regimen) sacubitril 24 mg-valsartan 26 mg 1 tab PO BID CHF #180 tabs 08/14/23 10/07/23 Rx tablet albuterol sulfate 90 mcg/actuation 2 inh inhalation QID PRN shortness 09/02/23 10/07/23 Rx aerosol inhaler of breath or wheezing 90 days #8.5 grams tiotropium 2.5 mcg-olodaterol 2.5 2 puff inhalation DAILY 90 days #4 09/02/23 10/07/23 Rx mcg/actuation mist for inhalation grams (Stiolto Respimat) atorvastatin 10 mg tablet 20 mg (2 x 10 mg) PO DAILY 90 days 10/01/23 10/07/23 Rx #180 tabs duloxetine 60 mg capsule,delayed 60 mg PO DAILY 90 days #90 caps 10/01/23 10/07/23 Rx release gabapentin 800 mg tablet 1,200 mg (1.5 x 800 mg) PO TID 30 10/01/23 10/07/23 Rx days #135 tabs oxycodone 15 mg tablet 15 mg PO QID PRN neuropathy, back 10/01/23 10/07/23 Rx pain, chronic 30 days #120 tabs carvedilol 3.125 mg tablet 3.125 mg PO BID 10/08/23 10/08/23 History ipratropium 0.5 mg-albuterol 3 mg 3 ml inhalation QID PRN Shortness 10/08/23 10/08/23 History (2.5 mg base)/3 mL nebulization Of Breath Or Wheezing soln levofloxacin 750 mg tablet 750 mg PO 1100 2 days #2 tabs 10/08/23 Rx nicotine 21 mg/24 hr daily 21 mg transdermal DAILYP PRN 10/08/23 Rx transdermal patch Nicotine Cravings 28 days #28 ea prednisone 20 mg tablet 40 mg (2 x 20 mg) PO DAILY 4 days 10/08/23 Rx #8 tabs New Prescriptions to Start Prescriptions: levofloxacin Murphy,Kota nicotine Murphy,Kota prednisone Murphy,Kota Allergies Allergy/AdvReac Type Severity Reaction Status Date / Time methocarbamol [From ROBAXIN] Allergy Unknown Verified 10/05/23 20:50 pregabalin [From LYRICA] Allergy Unknown Verified 10/05/23 20:50 ibuprofen AdvReac Verified 10/05/23 20:50 Exam Data for Last 24 hours Vital signs and Labs for Last 24 Hours: Temp Pulse Resp BP Pulse Ox O2 Del Method O2 Flow Rate 97.7 F 60 18 122/68 96 Nasal Cannula 2 10/07/23 17:01 10/07/23 18:30 10/07/23 17:01 10/07/23 18:30 10/07/23 18:30 10/07/23 18:30 10/07/23 18:30 Laboratory Results - last 24 hr 10/07/23 17:20: WBC 14.5 H, RBC 3.74 L, Hgb 11.4 L, Hct 35.1 L, MCV 93.7, MCH 30.4, MCHC 32.4, RDW 14.6, Plt Count 782 H, MPV 7.9, Neut % (Auto) 90.4 H, Lymph % (Auto) 6.2 L, Cuming % (Auto) 2.8, Eos % (Auto) 0.3, Baso % (Auto) 0.2, Neut # (Auto) 13.1 H, Lymph # (Auto) 0.9, Cuming # (Auto) 0.4, Eos # (Auto) 0.1, Baso # (Auto) 0.0, Total Counted 100, Neutrophils % (Manual) 91 H, Lymphocytes % (Manual) 8 L, Monocytes % (Manual) 1 L, Platelet Estimate Marked increase, RBC Morphology Normal, Sodium 138, Potassium 4.4, Chloride 102, Carbon Dioxide 32 H, Anion Gap 8.4, BUN 17 D, Creatinine 0.70, Estimated Creat Clear 57, Estimated GFR 113, Est GFR ( Amer) 137, Glucose 106 H, Calcium 9.3, Total Bilirubin 0.4, AST 21, ALT 21 D, Alkaline Phosphatase 102, Troponin I < 0.01, NT-Pro-B Natriuret Pep 237 H, Total Protein 7.0, Albumin 3.5, Globulin 3.5 H, Albumin/Globulin Ratio 1.0 L 10/07/23 17:29: VBG pH 7.35, VBG pCO2 50.9, VBG pO2 46.2 H, VBG HCO3 27.3, VBG Total CO2 28.8 H, VBG O2 Saturation 78.2 H, VBG Base Excess 1.6, VBG Lactic Acid 1.8 Temp Pulse Resp BP Pulse Ox FiO2 97.7 F 70 18 99/58 L 89 L 32 02/25/22 08:00 02/25/22 08:00 02/25/22 08:00 02/25/22 08:00 02/25/22 08:00 02/25/22 02:53 Laboratory Results - last 24 hr 02/24/22 18:48: WBC 21.9 H*, RBC 4.34 L, Hgb 14.1, Hct 43.6, MCV 100.5 H, MCH 32.5 H, MCHC 32.4, RDW 13.7, Plt Count 520 H, MPV 7.7, Neut % (Auto) 91.9 H, Lymph % (Auto) 3.5 L, Cuming % (Auto) 3.7, Eos % (Auto) 0.7, Baso % (Auto) 0.3, Neut # (Auto) 20.1 H, Lymph # (Auto) 0.8, Cuming # (Auto) 0.8, Eos # (Auto) 0.2, Baso # (Auto) 0.1, Total Counted 100, Neutrophils % (Manual) 84 H, Band Neutrophils % 9.0 H, Lymphocytes % (Manual) 5 L, Monocytes % (Manual) 2, Platelet Estimate Slight increase, Macrocytosis 1+, ESR 36 H 02/24/22 18:48: Sodium 129 L, Potassium 4.5, Chloride 93 L, Carbon Dioxide 28, Anion Gap 12.5, BUN 21 H, Creatinine 0.80, Estimated Creat Clear 69, Estimated GFR 98, Est GFR ( Amer) 118, Glucose 133 H, Calcium 8.9, Magnesium 1.6, Troponin I 0.13 H, C-Reactive Protein 231.1 H 02/24/22 18:48: Lactate 1.1 02/24/22 18:48: Procalcitonin 0.173 02/24/22 18:48: NT-Pro-B Natriuret Pep 687 H 02/24/22 19:46: SARS-CoV-2 (PCR) Not detected, Influenza A Untype (PCR) Not detected, Influenza Type B (PCR) Not detected 02/24/22 19:57: Specimen Source Right radial, O2 % 4, ABG pH 7.35, ABG pCO2 45.8 H, ABG pO2 72.5 L, ABG HCO3 24.8, ABG Total CO2 26.2, ABG O2 Saturation 95, ABG Base Excess -0.7, Kyle Test Y 02/24/22 20:02: Ammonia 11 02/24/22 23:00: Troponin I 0.16 H 02/25/22 07:15: WBC 25.8 H*, RBC 4.44 L, Hgb 14.3, Hct 45.0, MCV 101.3 H, MCH 32.3 H, MCHC 31.9, RDW 13.6, Plt Count 522 H, MPV 8.5, Neut % (Auto) 94.5 H, Lymph % (Auto) 3.2 L, Cuming % (Auto) 2.0, Eos % (Auto) 0.1, Baso % (Auto) 0.2, Neut # (Auto) 24.4 H, Lymph # (Auto) 0.8, Cuming # (Auto) 0.5, Eos # (Auto) 0.0, Baso # (Auto) 0.0, Total Counted 100, Neutrophils % (Manual) 96 H, Lymphocytes % (Manual) 3 L, Monocytes % (Manual) 1 L, Platelet Estimate Slight increase, Macrocytosis 1+ 02/25/22 07:15: Sodium 130 L, Potassium 4.5, Chloride 97 L, Carbon Dioxide 27, Anion Gap 10.5, BUN 17, Creatinine 0.50 L D, Estimated Creat Clear 61, Estimated GFR 168, Est GFR ( Amer) 203 D, Glucose 148 H, Calcium 8.7, Magnesium 1.7, Triglycerides 77, Cholesterol 114 L, LDL Cholesterol Direct 47.12 L, VLDL Cholesterol 15, HDL Cholesterol 36 L, Cholesterol/HDL Ratio 3.2 I & O for Last 24 hours: Intake & Output 10/04/23 10/05/23 10/06/23 10/07/23 23:59 23:59 23:59 23:59 Weight 54.431 kg Intake & Output 02/22/22 02/23/22 02/24/22 02/25/22 11:59 11:59 11:59 11:59 Intake Total 586 / 586 Output Total 600 / 600 Balance - Weight 125 lb Constitutional Constitutional: mild distress, thin and chronically ill appearing *Routine HEENT Exam Head: Present normocephalic Eye: Present EOMI and PERRL; Absent conjunctival icterus ENT: Present mucous membranes dry *Routine Neck Exam Neck: Absent JVD *Routine Respiratory Exam Respiratory: Present prolonged expiratory phase, wheezes and normal respiratory effort; Absent rales *Routine Cardiovascular Exam Cardiovascular: Present RRR, murmur and S4 *Routine Abdominal Exam Abdominal: Absent organomegaly *Routine Rectal Exam Rectal:: deferred *Routine Genitalia Exam Genitalia:: deferred *Routine Extremities Exam Extremities: Absent calf tenderness *Routine Skin Exam Skin: Absent erythema *Routine Neurological Exam Neurological: Present alert, oriented X3, CN II-XII intact, normal reflexes and moving all extremities Routine Psychiatric Exam Psychiatric: Present cooperative and anxious H&P: Result Imaging and Cardiology EKG: Status: image reviewed by me, Preliminary report and final report Chest x-ray: Status: image reviewed by me, Preliminary report and final report Assessment and Plan *Assessment and plan (1) Acute exacerbation of chronic obstructive pulmonary disease: Status: Acute Category: Medical Code(s): J44.1 - Chronic obstructive pulmonary disease with (acute) exacerbation (2) Chronic respiratory failure: Status: Acute Qualifiers: Respiratory failure complication: unspecified whether with hypoxia or hypercapnia Qualified Code(s): J96.10 - Chronic respiratory failure, unspecified whether with hypoxia or hypercapnia Category: Medical Code(s): J96.10 - Chronic respiratory failure, unspecified whether with hypoxia or hypercapnia (3) CAP (community acquired pneumonia): Status: Acute Qualifiers: Laterality: right Lung location: lower lobe of lung Qualified Code(s): J18.9 - Pneumonia, unspecified organism Category: Medical Code(s): J18.9 - Pneumonia, unspecified organism (4) Nonischemic cardiomyopathy: Status: Chronic Category: Medical Code(s): I42.8 - Other cardiomyopathies (5) HLD (hyperlipidemia): Problem Comment: Lipid panel done April 2023 reveals a triglyceride 114 total cholesterol 147 LDL of 88 and HDL 39. This is not a bad panel at all. Patient is taking atorvastatin to 10 mg tablets per day at 20 mg total. Status: Chronic Qualifiers: Hyperlipidemia type: mixed hyperlipidemia Qualified Code(s): E78.2 - Mixed hyperlipidemia Category: Medical Code(s): E78.5 - Hyperlipidemia, unspecified (6) HTN (hypertension): Problem Comment: Blood pressures have been routinely less than 130/80 on a regular basis. Today was 120/68. Will continue with the sacubitril/valsartan at 24/26 mg twice a day. Additionally he is taking carvedilol. Status: Chronic Qualifiers: Hypertension type: essential hypertension Qualified Code(s): I10 - Essential (primary) hypertension Category: Medical Code(s): I10 - Essential (primary) hypertension (7) Anxiety: Problem Comment: This patient states his anxiety is well-controlled on the duloxetine. Stopped his benzodiazepines completely. Status: Acute Category: Medical Code(s): F41.9 - Anxiety disorder, unspecified Plan 63-year-old male with PMHx of COPD intermittently on 2 L nasal cannula as needed at home, hypertension, cardiomyopathy, hyperlipidemia, presented to the emergency department for evaluation of shortness of breath. on arrival patient was satting 93% on RA. work up included cBC, CMP, troponin, BNP, chest x-ray, and EKG. Patient was given DuoNebs to assess for symptomatic improvement of wheezing and shortness of breath. Significant for leukocytocis. CXR showed improved om air space and persistent infiltration. patient was able to ambulated on 2L. however expressed feeling so weak. Discussed with ED. Agreed for admission. Plan: Acute on chronic respiratory failure. COPD exacerbation CAP -Pumology consulted -Continue nasal oxygen supplementation to maintain O2 saturation goal of 90% and above -Change antibiotics to ceftriaxone azithromycin -DuoNebs every 6 hours and budesonide every 12 scheduled -decadron 6mg daily -resume home respimat -repeat daily labs - resume home nebulizer -repeat 6 min walk test No ischemic myocardiopathy: on entresto negative troponin HTN. HLD. ANXiety conditions reviewed and stables, on aspirin, ststin duoloxetine, gabapentin Lovenox for DVT ppx. On protonix Full code Rounded on patient after nurse practitioner. Personally examined and interviewed patient. Agree with exam findings and care plan as documented.
--- NOTE | 2023-10-07 19:40 | PC.NURSE ---
Nurse to nurse report to Erin
[2023-10-07 19:45] VITALS: BP 106/65; PULSE 61; RESP 19; TEMP 36.8; O2SAT 93
[2023-10-07 20:00] VITALS: BP 108/72; PULSE 62; RESP 18; TEMP 36.6; O2SAT 91; BMI 15.5
[2023-10-07 21:11] LABS: Troponin I < 0.01 ng/ml (0.00-0.034)
--- NOTE | 2023-10-07 21:17 | PC.NURSE ---
Patient arrived to unit via wheelchair from ED. Patient alert and orient X4. Operational Risk Manager oriented patient to room, educated manager mission light, bed controller and tv remote with a voice of understanding. Patient denies pain upon arrival to unit. Full assessment to follow.
[2023-10-07] MEDS: DEXAMETHASONE 4MG TABLET 6 MG PO (23:19)
[2023-10-07] MEDS: DOCUSATE SODIUM 100 MG CAPSULE PO (23:20)
[2023-10-07] MEDS: OXYCODONE 15 MG 15 EACH PO (23:21)
[2023-10-07] MEDS: GABAPENTIN 800MG TABLET 1200 MG PO (23:29)
[2023-10-07] MEDS: DOXYCYCLINE HYCL 100 MG TABLET PO (23:56)
[2023-10-08 00:06] LABS: Troponin I < 0.01 ng/ml (0.00-0.034)
[2023-10-08] MEDS: IPRATROPIUM/ALBUTEROL 3 ML NEB IH ×3 (00:17→10:32)
[2023-10-08 00:26] VITALS: PULSE 54; PULSE 71
[2023-10-08 03:22] LABS: Adenovirus,PCR Not Detected (NotDetected); Coronavirus 19, PCR Not Detected (NotDetected); Coronavirus 229E Not Detected (NotDetected); Coronavirus NL63 Not Detected (NotDetected); Coronavirus OC43 Not Detected (NotDetected); Coronovirus HKU1,PCR Not Detected (NotDetected); Human Metapneumovirus Not Detected (NotDetected); Influenza A, PCR Not Detected (NotDetected); Influenza AH1, 2009 Not Detected (NotDetected); Influenza AH1, PCR Not Detected (NotDetected); Influenza AH3,PCR Not Detected (NotDetected); Influenza B, PCR Not Detected (NotDetected); Parainfluenza 1, PCR Not Detected (NotDetected); Parainfluenza 2, PCR Not Detected (NotDetected); Parainfluenza 3, PCR Not Detected (NotDetected); Parainfluenza 4, PCR Not Detected (NotDetected); Respiratory Syncytial Virus Not Detected (NotDetected); Rhinovirus/Enterovirus Not Detected (NotDetected)
[2023-10-08 04:00] VITALS: BP 100/55; PULSE 68; RESP 17; TEMP 36.6; O2SAT 98; BMI 15.6
[2023-10-08 06:06] VITALS: PULSE 62; PULSE 64; O2SAT 92
[2023-10-08 06:38] LABS: Chloride 104 mmol/L (98-107); Potassium 4.9 mmoL/L (3.5-5.1); Sodium 136 mmol/L (136-145)
[2023-10-08 06:40] LABS: Alanine Aminotransferase 20 U/L (12-78); Aspartate Amino Transferase 25 U/L (17-59); Blood Urea Nitrogen 18 mg/dl (9-20); Creatinine Clearance Estimated 58 mL/min (50-200); Estimated Glomerular Filt Rate 135 ml/min (>60); GFR (African American) 164 ML/MIN (>60)
[2023-10-08 06:41] LABS: Albumin Level 3.3 g/dl (3.5-5.0); Alkaline Phosphatase 101 U/L (38-126); Anion Gap 6.9 mEq/L (5-15); Bilirubin,Total 0.4 mg/dl (0.2-1.3); Calcium 9.1 mg/dl (8.4-10.2); Carbon Dioxide 30 mmol/L (22.0-30.0); Globulin 3.3 g/dL (1.3-3.2); Glucose 124 mg/dl (74-100); Magnesium 2.1 mg/dl (1.6-2.3); Phosphorous 3.7 mg/dl (2.5-4.5); Total Protein,Serum 6.6 g/dl (6.3-8.2)
[2023-10-08 06:43] LABS: Basophils % 0.1 % (0.1-2.0); Eosinophils % 0.2 % (0.1-12.0); Hematocrit 35.3 % (42.0-52.0); Hemoglobin 11.2 g/dL (14.1-18.0); Lymphocytes # 0.7 K/mm3 (0.7-4.5); Lymphocytes % 6.6 % (10-50); Mean Corpuscular HGB Conc 31.8 g/dL (31.8-35.4); Mean Corpuscular Hemoglobin 29.6 pg (27.0-31.2); Mean Platelet Volume 7.9 fl (7.4-10.4); Monocytes # 0.2 K/mm3 (0.1-1.0); Monocytes % 1.6 % (1.7-9.3); Neutrophils # 10.1 K/mm3 (1.8-7.8); Neutrophils % 91.6 % (37.0-80.0); Platelet Count 713 K/mm3 (142-424); Red Cell Distribution Width 14.6 % (11.5-17.5)
[2023-10-08 06:45] LABS: MANUAL DIFFERENTIAL MANUAL DIFFERENTIAL (MANUAL DIFF)
--- NOTE | 2023-10-08 07:29 | HMH.PTEV ---
Physical Therapy Evaluation Rehab PT IP Evaluation Start: 10/07/23 19:37 Freq: ONCE Status: Active Protocol: Document 10/08/23 07:22 GRANT (Rec: 10/08/23 07:29 GRANT [id number]) Subjective/History History History Per H&P: This is a 63-year-old male with PMHx of COPD intermittently on 2 L nasal cannula as needed at home, hypertension, cardiomyopathy, hyperlipidemia, presented to the emergency department for evaluation of shortness of breath. Patient was seen at ED 2 days ago for similar symptoms and was diagnosed with a COPD exacerbation. He notes that since then, he is continue to have shortness of breath at home and has not been able to get his oxygen up . He typically did not wear her oxygen except as needed, but has been on 4 L nasal cannula since discharge. He notes that if he tries to take it off, he immediately dropped to the 70s to 80s, specially on excerption. He is been taking his medications at home as prescribed and been using his nebulizer every 4 hours, with no improvement, he refused to be admitted last time seen. Because deterioration of symptoms he decided to return to ED for evaluation. admitted for further treatment. Subjective Subjective PLOF per pt report: Lives with his 2 daughters (1 works FT, 1 able to assist during day) in a single-story home with 4 LUKE ([facility]). Pt was IND with functional mobility and ADLs without AD use. Not driving prior to admission. Was on supplemental O2 at home. Denies any falls in the last 30 days. New diagnosis of cancer in past 12 No months? Rehab PT IP Eval Objective Appearance Patient Behavior Appropriate,Cooperative Patient Orientation Person,Place,Situation Difficulty following instructions none Speech Pattern Clear,Appropriate Ambulation Patient Able to Ambulate Yes Ambulation Observation IP General Gait Pattern Observation No Deviations/Normal Ambulation Distance (feet) 30 Ambulation Assistive Device None Ambulation Ability Supervision/Stand by Balance Ability to Arise Able, w/o using arms Sitting Balance Steady, safe Standing Balance Narrow stance w/o support Transfers Bed Transfer Ability Supervision/Stand by Sit to Stand Bed Transfer Ability Supervision/Stand by MMT All Extremities PT MMT WFL Rehab PT IP prob,goals,plan Problems Date of Evaluation: 10/08/23 Rehab Potential Rehab Potential Innapropriate for Skilled Therapy Discharge Plan PT Discharge Plan Pt inappropriate for skilled acute care PT d/t being at baseline with functional mobility. Pt able to ambulate and transfer safely without AD use with SUP-IND. Pt safe to d/c home when deemed medically necessary d/t current mobility, home set up, and family support. Eval Complexity Eval Charge Codes 28853 - Low Complexity PHYSICIAN CERTIFICATION: I certify the specified therapy services for Radu Turk are required, authorized, and reviewed every 30 days.
--- NOTE | 2023-10-08 07:43 | HMH.PHAINT1 ---
Pharmacy Intervention Comments: HOME MEDICATION VERIFIED VIA CLINIC PHARMACY
[2023-10-08 07:49] LABS: Lymphocytes % 6 % (10-50); Monocytes % 1 % (2-9); Neutrophils % 93 % (42-76); RBC Morphology Normal; Total Cells Counted 100
[2023-10-08 07:50] LABS: Platelet Estimate Marked Decrease
[2023-10-08 07:55] VITALS: BP 113/58; PULSE 80; RESP 18; TEMP 36.5; O2SAT 93
[2023-10-08] MEDS: DULOXETINE 30MG CAPSULE.DR 60 MG PO (08:51)
[2023-10-08] MEDS: DOXYCYCLINE HYCL 100 MG TABLET PO (08:52)
[2023-10-08] MEDS: GABAPENTIN 600MG TABLET 1200 MG PO (08:52)
[2023-10-08] MEDS: ASPIRIN EC 81MG TABLET 81 MG PO (08:52)
[2023-10-08] MEDS: DEXAMETHASONE 4MG TABLET 6 MG PO (08:53)
[2023-10-08] MEDS: DOCUSATE SODIUM 100 MG CAPSULE PO (08:53)
[2023-10-08] MEDS: SACUBITRIL/VALSARTAN 24-26MG TABLET 1 EACH PO (08:53)
[2023-10-08] MEDS: ENOXAPARIN 40MG/0.4ML SYRINGE 40 MG SQ (08:54)
--- NOTE | 2023-10-08 09:16 | HMH.OTEV ---
OT Inpatient Evaluation Rehab OT IP Evaluation Start: 10/07/23 19:37 Freq: ONCE Status: Active Protocol: Document 10/08/23 09:09 MÓNICAJAMILAH (Rec: 10/08/23 09:16 JJ [id number]) Rehab OT IP Assessment Subjective History This is a 63-year-old male with PMHx of COPD intermittently on 2 L nasal cannula as needed at home, hypertension, cardiomyopathy, hyperlipidemia, presented to the emergency department for evaluation of shortness of breath. Patient was seen at ED 2 days ago for similar symptoms and was diagnosed with a COPD exacerbation. He notes that since then, he is continue to have shortness of breath at home and has not been able to get his oxygen up . He typically did not wear her oxygen except as needed, but has been on 4 L nasal cannula since discharge. He notes that if he tries to take it off, he immediately dropped to the 70s to 80s, specially on excerption He is been taking his medications at home as prescribed and been using his nebulizer every 4 hours, with no improvement, he refused to be admitted last time seen. Because deterioration of symptoms he decided to return to ED for evaluation. admitted for further treatment. Patient lives in [address] [place] home with 1-2 LUKE with trav. Independent with ADLs and fx'l mobility prior to hospitalization. Currently on 2L of 02 at home. Currently still drives. Subjective I can get up. Analysis Patient's safety awareness to maneuver during bed mobility, transfers, ambulation and LB Drsg. Patient completed all tasks independently with being able to maneuver 02 tubing. No LOB noted. Objective Patient Orientation Person,Place,Name,Age,Birthday ,Year Right Upper Extremity Gross ROM WFL Left Upper Extremity Gross ROM WFL Bed Mobility bed mobility - supine/sit Assist Level Independent Transfer Training Sit/Stand Transfer Assist Level Independent Chair Transfer Ability Independent Chair Transfer Technique Sit to/from Ambulatory Chair Transfer Assistive Devices None Lower Body Dressing Ability Independent Rehab OT IP prob,goals,plan Problems Date of Evaluation: 10/08/23 Rehab Potential Rehab Potential Innapropriate for Skilled Therapy Discharge Plan OT Discharge Plan Patient appears to be at baseline. Independent with all ADLs and fx'l mobility tasks. Patient to return home after medical d/c. Patient requested for OP PT services for LE strengthening. Educated Patient re: needing MD order to begin therapy in OP setting . Teach back successful. Eval Complexity Eval Charge Codes 98595 - Low Complexity PHYSICIAN CERTIFICATION: I certify the specified therapy services for Radu Kyle Rosalee are required, authorized, and reviewed every 30 days.
--- NOTE | 2023-10-08 09:36 | EXP.PULM.CON ---
History of Present Illness History of present illness: Mr. Turk is a 63-year-old male greater than [id number] smoking history with a diagnosis of COPD on Stiolto inhaler, hypertension, dyslipidemia cardiomyopathy presented with worsening respiratory distress and was admitted for management of COPD exacerbation and pulmonary was called for further evaluation and management. Patient recently presented to the ER with worsening respiratory distress cough and productive phlegm, diagnosed with COPD exacerbation discharged home on azithromycin and Augmentin. [facility] Disclaimer: The information contained in this section may have been updated after the patient was seen, as this information can be updated by other users. Medical History (Updated 10/08/23 @ 11:05 by Cait Marcelo MD) Acute and chronic respiratory failure with hypoxia Postherpetic trigeminal neuralgia Encounter for screening for malignant neoplasm of lung in current smoker with 30 pack year history or greater Abnormal screening computed tomography (CT) of chest Nonischemic cardiomyopathy Diastolic dysfunction Elevated left ventricular end-diastolic pressure (LVEDP) Acute respiratory failure with hypoxia Non-STEMI (non-ST elevated myocardial infarction) Emphysema/COPD SIRS (systemic inflammatory response syndrome) Pneumonia due to gram-negative bacteria Low body mass index (BMI) COPD (chronic obstructive pulmonary disease) with acute bronchitis Upper respiratory infection Rhinovirus infection HLD (hyperlipidemia) Tobacco dependence syndrome Chest pain Cardiomyopathy Dyspnea Preoperative clearance Poisoning by opiate or related narcotic Atypical pneumonia Postherpetic neuralgia Left against medical advice HTN (hypertension) Elevated C-reactive protein CAP (community acquired pneumonia) COPD (chronic obstructive pulmonary disease) Pain, eye, right Herpes zoster ophthalmicus, right eye Eye pain Shingles Neuropathy Surgical History H/O cervical spine surgery H/O cardiac catheterization Family History Mother Lung cancer Family history of acute congestive heart failure Father Lung cancer Family history of acute congestive heart failure Social History Smoking Status: Former smoker tobacco type: cigarettes packs per day: 1 smoking status stop date: december 2021 second hand exposure: Yes alcohol intake: current substance use type: denies use current occupational status: disabled Travel in the last 8 weeks: None household members: children housing: house marital status: current occupational exposures/hazards: No pets and animals: No caffeine: Yes Review of Systems Constitutional Constitutional: Reports anorexia, Reports body ache(s) and Reports fatigue Eyes Eyes: Denies eye discharge, Denies dry eyes, Denies irritation and Denies itchy eyes ENT Ears, Nose, Mouth, and Throat: Denies epistaxis, Denies facial pain, Denies lip swelling and Denies throat swelling *Cardiovascular Cardiovascular: Reports dyspnea and Reports dyspnea on exertion *Respiratory Respiratory: Reports chest congestion, Reports cough, Reports dyspnea, Reports dyspnea on exertion, Reports excessive phlegm production, Denies hemoptysis, Denies pain on inspiration, Denies pain with cough and Reports wheezing *Gastrointestinal Gastrointestinal: Denies abdominal pain, Denies belching and Denies cramping *Musculoskeletal Musculoskeletal: Reports back pain, Reports myalgias and Reports other (No small joint swelling or Pain) Psychiatric Psychiatric: Denies homicidal ideation and Denies suicidal ideation Endocrine Endocrine: Reports fatigue and Denies heat intolerance Hematologic/Lymphatic Hematologic/Lymphatic: Denies easy bleeding and Denies lymphadenopathy Allergic/Immunologic Allergic/Immunologic: Denies itchy eyes, Denies lip swelling, Denies throat swelling and Reports wheezing Pulmonology Exam Inpatient Vital signs and Labs for Last 24 Hours: Temp Pulse Resp BP Pulse Ox O2 Del Method O2 Flow Rate 97.7 F 80 18 113/58 L 93 L Nasal Cannula 2 10/08/23 07:55 10/08/23 07:55 10/08/23 07:55 10/08/23 07:55 10/08/23 07:55 10/08/23 09:00 10/08/23 09:00 Laboratory Results - last 24 hr 10/07/23 17:20: WBC 14.5 H, RBC 3.74 L, Hgb 11.4 L, Hct 35.1 L, MCV 93.7, MCH 30.4, MCHC 32.4, RDW 14.6, Plt Count 782 H, MPV 7.9, Neut % (Auto) 90.4 H, Lymph % (Auto) 6.2 L, [place] % (Auto) 2.8, Eos % (Auto) 0.3, Baso % (Auto) 0.2, Neut # (Auto) 13.1 H, Lymph # (Auto) 0.9, [place] # (Auto) 0.4, Eos # (Auto) 0.1, Baso # (Auto) 0.0, Total Counted 100, Neutrophils % (Manual) 91 H, Lymphocytes % (Manual) 8 L, Monocytes % (Manual) 1 L, Platelet Estimate Marked increase, RBC Morphology Normal, Sodium 138, Potassium 4.4, Chloride 102, Carbon Dioxide 32 H, Anion Gap 8.4, BUN 17 D, Creatinine 0.70, Estimated Creat Clear 57, Estimated GFR 113, Est GFR ( Amer) 137, Glucose 106 H, Calcium 9.3, Total Bilirubin 0.4, AST 21, ALT 21 D, Alkaline Phosphatase 102, Troponin I < 0.01, NT-Pro-B Natriuret Pep 237 H, Total Protein 7.0, Albumin 3.5, Globulin 3.5 H, Albumin/Globulin Ratio 1.0 L 10/07/23 17:29: VBG pH 7.35, VBG pCO2 50.9, VBG pO2 46.2 H, VBG HCO3 27.3, VBG Total CO2 28.8 H, VBG O2 Saturation 78.2 H, VBG Base Excess 1.6, VBG Lactic Acid 1.8 10/07/23 20:40: Troponin I < 0.01 10/07/23 23:25: Troponin I < 0.01 10/08/23 03:17: Chlamy pneumoniae PCR TNP, Adenovirus (PCR) Not detected, B. pertussis DNA (PCR) TNP, Coronavirus OC43 (PCR) Not detected, Coronavirus HKU1 (PCR) Not detected, Coronavirus 229E (PCR) Not detected, SARS-CoV-2 (PCR) Not detected, Coronavirus NL63 (PCR) Not detected, Human Metapneumovir PCR Not detected, Influenza A (H1) PCR Not detected, Influ A (H1N1/09) PCR Not detected, Influenza A (H3) PCR Not detected, Influenza Type A (PCR) Not detected, Influenza Type B (PCR) Not detected, M. pneumoniae (PCR) TNP, Parainfluenza 1 (PCR) Not detected, Parainfluenza 2 (PCR) Not detected, Parainfluenza 3 (PCR) Not detected, Parainfluenza 4 (PCR) Not detected, RSV (PCR) Not detected, Entero/Rhino (PCR) Not detected 10/08/23 05:59: WBC 11.0 H, RBC 3.80 L, Hgb 11.2 L, Hct 35.3 L, MCV 93.0, MCH 29.6, MCHC 31.8, RDW 14.6, Plt Count 713 H, MPV 7.9, Neut % (Auto) 91.6 H, Lymph % (Auto) 6.6 L, [place] % (Auto) 1.6 L, Eos % (Auto) 0.2, Baso % (Auto) 0.1, Neut # (Auto) 10.1 H, Lymph # (Auto) 0.7, [place] # (Auto) 0.2, Eos # (Auto) 0.0, Baso # (Auto) 0.0, Total Counted 100, Neutrophils % (Manual) 93 H, Lymphocytes % (Manual) 6 L, Monocytes % (Manual) 1 L, Platelet Estimate Marked decrease, RBC Morphology Normal, Sodium 136, Potassium 4.9, Chloride 104, Carbon Dioxide 30, Anion Gap 6.9, BUN 18, Creatinine 0.60 L, Estimated Creat Clear 58, Estimated GFR 135, Est GFR ( Amer) 164, Glucose 124 H, Calcium 9.1, Phosphorus 3.7, Magnesium 2.1, Total Bilirubin 0.4, AST 25, ALT 20, Alkaline Phosphatase 101, Total Protein 6.6, Albumin 3.3 L, Globulin 3.3 H, Albumin/Globulin Ratio 1.0 L I & O for Labs for Last 24 Hours: Intake & Output 10/05/23 10/06/23 10/07/23 10/08/23 23:59 23:59 23:59 23:59 Intake Total 775 / 775 Balance 775 / 775 Weight 121 lb 1.6 oz 122 lb 1.6 oz Constitutional: Present moderate distress Head: Present normocephalic and atraumatic ENT: Present normal exam, normal oropharynx and mucous membranes moist Neck: Present normal inspection and full ROM Respiratory: Present prolonged expiratory phase, respiratory distress, rhonchi, wheezes and able to speak in complete sentences Cardiac: Present S1/S2, Tachycardia and radial pulses present GI: Present soft and distention; Absent tenderness or guarding Skin: Present intact; Absent cyanosis or jaundice Neuro: Present alert, awake and oriented x 3 Extremities: Present normal inspection; Absent clubbing or cyanosis Psychiatric: Present normal affect and cooperative Meds Home Medications and Allergies Home Medications Medication Instructions Recorded Confirmed Type aspirin 81 mg tablet,delayed 81 mg PO DAILY #30 tabs 05/02/23 10/07/23 Rx release (Adult Aspirin Regimen) sacubitril 24 mg-valsartan 26 mg 1 tab PO BID CHF #180 tabs 08/14/23 10/07/23 Rx tablet albuterol sulfate 90 mcg/actuation 2 inh inhalation QID PRN shortness 09/02/23 10/07/23 Rx aerosol inhaler of breath or wheezing 90 days #8.5 grams tiotropium 2.5 mcg-olodaterol 2.5 2 puff inhalation DAILY 90 days #4 09/02/23 10/07/23 Rx mcg/actuation mist for inhalation grams (Stiolto Respimat) atorvastatin 10 mg tablet 20 mg (2 x 10 mg) PO DAILY 90 days 10/01/23 10/07/23 Rx #180 tabs duloxetine 60 mg capsule,delayed 60 mg PO DAILY 90 days #90 caps 10/01/23 10/07/23 Rx release gabapentin 800 mg tablet 1,200 mg (1.5 x 800 mg) PO TID 30 10/01/23 10/07/23 Rx days #135 tabs oxycodone 15 mg tablet 15 mg PO QID PRN neuropathy, back 10/01/23 10/07/23 Rx pain, chronic 30 days #120 tabs carvedilol 3.125 mg tablet 3.125 mg PO BID 10/08/23 10/08/23 History ipratropium 0.5 mg-albuterol 3 mg 3 ml inhalation QID PRN Shortness 10/08/23 10/08/23 History (2.5 mg base)/3 mL nebulization Of Breath Or Wheezing soln New Prescriptions to Start Prescriptions: Allergies Allergy/AdvReac Type Severity Reaction Status Date / Time methocarbamol [From ROBAXIN] Allergy Unknown Verified 10/05/23 20:50 pregabalin [From LYRICA] Allergy Unknown Verified 10/05/23 20:50 ibuprofen AdvReac Verified 10/05/23 20:50 Results Laboratory Findings 10/08/23 05:59 10/08/23 05:59 Abnormal lab findings: Abnormal Labs 10/07/23 10/07/23 10/08/23 17:20 17:29 05:59 WBC 14.5 H 11.0 H RBC 3.74 L 3.80 L Hgb 11.4 L 11.2 L Hct 35.1 L 35.3 L Plt Count 782 H 713 H Neut % (Auto) 90.4 H 91.6 H Lymph % (Auto) 6.2 L 6.6 L [place] % (Auto) 1.6 L Neut # (Auto) 13.1 H 10.1 H Neutrophils % (Manual) 91 H 93 H Lymphocytes % (Manual) 8 L 6 L Monocytes % (Manual) 1 L 1 L VBG pO2 46.2 H VBG Total CO2 28.8 H VBG O2 Saturation 78.2 H Carbon Dioxide 32 H Creatinine 0.60 L Glucose 106 H 124 H NT-Pro-B Natriuret Pep 237 H Albumin 3.3 L Globulin 3.5 H 3.3 H Albumin/Globulin Ratio 1.0 L 1.0 L Assessment and Plan *Assessment and plan (1) Acute exacerbation of chronic obstructive pulmonary disease: Status: Acute Category: Medical Code(s): J44.1 - Chronic obstructive pulmonary disease with (acute) exacerbation (2) Acute and chronic respiratory failure with hypoxia: Status: Acute Category: Medical Code(s): J96.21 - Acute and chronic respiratory failure with hypoxia (3) Pneumonia: Status: Acute Category: Medical Code(s): J18.9 - Pneumonia, unspecified organism Plan Mr. Turk is a 63-year-old male greater than [id number] smoking history with a diagnosis of COPD on Stiolto inhaler, hypertension, dyslipidemia cardiomyopathy presented with worsening respiratory distress and was admitted for management of COPD exacerbation and pulmonary was called for further evaluation and management. Patient recently presented to the ER with worsening respiratory distress cough and productive phlegm, diagnosed with COPD exacerbation discharged home on azithromycin and Augmentin. Patient presented to the ER again with continued worsening respiratory distress. Chest x-ray on admission no dense consolidation/airspace disease noted with the noted left lower lobe infiltrate appears improving in size. Concerning for volume overload with increased vascular congestion. Complains of respiratory viral PCR panel negative. Afebrile. Hemodynamically stable. Mild neutrophilic leukocytosis, improving. On examination patient does not appear to be in any severe respiratory distress. Auscultation mild wheezing noted. Admits improving respiratory symptoms. Saturating 96% on 2 L, weaned to 1 L. Plan: Continue oxygen supplementation to maintain O2 saturation goal of 90 to 95%. Currently on 1 L. Wean as tolerated. If the room air sats were greater than 89% upon discharge, will perform 6-minute walk testing to determine the need for exertional oxygen supplementation prior to discharge Lasix 20 mg IV once Change antibiotics to levofloxacin 750mg oral daily to complete a total of 3-day course Wean steroids to prednisone 40 mg daily to complete a total of 5-day course DuoNebs every 6 hours scheduled basis, patient can be discharged home inhaler therapy which include Stiolto inhaler along with DuoNebs every 6 hours on as-needed basis Follow-up with sputum culture results. Sample collected today. Thank you for involving pulmonary in this patient care. Will continue to follow.
[2023-10-08 10:33] VITALS: PULSE 80; PULSE 82; O2SAT 93
[2023-10-08] MEDS: TIOTROPIUM 18MCG/PUFF INHALER 1 CAP IH (10:33)
[2023-10-08] MEDS: FUROSEMIDE 20 MG/2 ML VIAL IV (11:23)
--- NOTE | 2023-10-08 11:51 | EXP.DC.SUM ---
General Admission date:: 10/07/23 Discharge date: 10/08/23 HPI HPI HPI: This is a 63-year-old male with PMHx of COPD intermittently on 2 L nasal cannula as needed at home, hypertension, cardiomyopathy, hyperlipidemia, presented to the emergency department for evaluation of shortness of breath. Patient was seen at ED 2 days ago for similar symptoms and was diagnosed with a COPD exacerbation. He notes that since then, he is continue to have shortness of breath at home and has not been able to get his oxygen up. He typically did not wear her oxygen except as needed, but has been on 4 L nasal cannula since discharge. He notes that if he tries to take it off, he immediately dropped to the 70s to 80s, specially on excerption He is been taking his medications at home as prescribed and been using his nebulizer every 4 hours, with no improvement, he refused to be admitted last time seen. Because deterioration of symptoms he decided to return to ED for evaluation. admitted for further treatment. Hospital Course Hospital Course Hospital Course: 63-year-old male with PMHx of COPD intermittently on 2 L nasal cannula as needed at home, hypertension, cardiomyopathy, hyperlipidemia, presented to the emergency department for evaluation of shortness of breath. on arrival patient was satting 93% on RA. work up included cBC, CMP, troponin, BNP, chest x-ray, and EKG. Patient was given DuoNebs to assess for symptomatic improvement of wheezing and shortness of breath. Significant for leukocytocis. CXR showed improved om air space and persistent infiltration. patient was able to ambulate on 2L. however expressed feeling so weak. Discussed with ED. Agreed for admission. Patient did well over night. Able to wean to baseline oxygen. Pulmonology consulted and assisted with care. Stable to discharge home on oral antibiotics. Problems addressed as follows: Acute on chronic respiratory failure. COPD exacerbation CAP -Presented with weakness and concern for pneumonia. Pulmonology consulted. On 1 L oxygen. Transitioned to Levaquin to complete 3-day course of antibiotics. Continue 40 mg prednisone x 5 days. DuoNebs every 6 hours scheduled at home. Continue Stiolto inhaler. Sputum culture obtained. Plan to follow-up with pulmonology as an outpatient and we will monitor sputum culture for need for possible adjustment of antibiotics. As he is on baseline oxygen, plan to discharge home today with further management as an outpatient. No ischemic myocardiopathy: on entresto, negative troponin HTN. HLD. Anxiety -Continue home regimen including aspirin 81 mg daily, Lipitor 10 mg daily, carvedilol 3.125 mg twice daily. Continue Cymbalta 60 mg daily for anxiety. Continue gabapentin 1200 mg 3 times a day, continue oxycodone 15 mg 4 times a day as needed for chronic pain. Condition stable during admission. Total time spent on discharge 32 minutes in counseling, documentation, chart review, and direct care with patient. Exam Data for Last 24 hours Vital signs and Labs for Last 24 Hours: Temp Pulse Resp BP Pulse Ox O2 Del Method O2 Flow Rate 97.7 F 80 18 113/58 L 93 L Nasal Cannula 2 10/08/23 07:55 10/08/23 10:33 10/08/23 07:55 10/08/23 07:55 10/08/23 10:33 10/08/23 11:00 10/08/23 11:00 Laboratory Results - last 24 hr 10/07/23 17:20: WBC 14.5 H, RBC 3.74 L, Hgb 11.4 L, Hct 35.1 L, MCV 93.7, MCH 30.4, MCHC 32.4, RDW 14.6, Plt Count 782 H, MPV 7.9, Neut % (Auto) 90.4 H, Lymph % (Auto) 6.2 L, Leake % (Auto) 2.8, Eos % (Auto) 0.3, Baso % (Auto) 0.2, Neut # (Auto) 13.1 H, Lymph # (Auto) 0.9, Leake # (Auto) 0.4, Eos # (Auto) 0.1, Baso # (Auto) 0.0, Total Counted 100, Neutrophils % (Manual) 91 H, Lymphocytes % (Manual) 8 L, Monocytes % (Manual) 1 L, Platelet Estimate Marked increase, RBC Morphology Normal, Sodium 138, Potassium 4.4, Chloride 102, Carbon Dioxide 32 H, Anion Gap 8.4, BUN 17 D, Creatinine 0.70, Estimated Creat Clear 57, Estimated GFR 113, Est GFR ( Amer) 137, Glucose 106 H, Calcium 9.3, Total Bilirubin 0.4, AST 21, ALT 21 D, Alkaline Phosphatase 102, Troponin I < 0.01, NT-Pro-B Natriuret Pep 237 H, Total Protein 7.0, Albumin 3.5, Globulin 3.5 H, Albumin/Globulin Ratio 1.0 L 10/07/23 17:29: VBG pH 7.35, VBG pCO2 50.9, VBG pO2 46.2 H, VBG HCO3 27.3, VBG Total CO2 28.8 H, VBG O2 Saturation 78.2 H, VBG Base Excess 1.6, VBG Lactic Acid 1.8 10/07/23 20:40: Troponin I < 0.01 10/07/23 23:25: Troponin I < 0.01 10/08/23 03:17: Chlamy pneumoniae PCR TNP, Adenovirus (PCR) Not detected, B. pertussis DNA (PCR) TNP, Coronavirus OC43 (PCR) Not detected, Coronavirus HKU1 (PCR) Not detected, Coronavirus 229E (PCR) Not detected, SARS-CoV-2 (PCR) Not detected, Coronavirus NL63 (PCR) Not detected, Human Metapneumovir PCR Not detected, Influenza A (H1) PCR Not detected, Influ A (H1N1/09) PCR Not detected, Influenza A (H3) PCR Not detected, Influenza Type A (PCR) Not detected, Influenza Type B (PCR) Not detected, M. pneumoniae (PCR) TNP, Parainfluenza 1 (PCR) Not detected, Parainfluenza 2 (PCR) Not detected, Parainfluenza 3 (PCR) Not detected, Parainfluenza 4 (PCR) Not detected, RSV (PCR) Not detected, Entero/Rhino (PCR) Not detected 10/08/23 05:59: WBC 11.0 H, RBC 3.80 L, Hgb 11.2 L, Hct 35.3 L, MCV 93.0, MCH 29.6, MCHC 31.8, RDW 14.6, Plt Count 713 H, MPV 7.9, Neut % (Auto) 91.6 H, Lymph % (Auto) 6.6 L, Leake % (Auto) 1.6 L, Eos % (Auto) 0.2, Baso % (Auto) 0.1, Neut # (Auto) 10.1 H, Lymph # (Auto) 0.7, Leake # (Auto) 0.2, Eos # (Auto) 0.0, Baso # (Auto) 0.0, Total Counted 100, Neutrophils % (Manual) 93 H, Lymphocytes % (Manual) 6 L, Monocytes % (Manual) 1 L, Platelet Estimate Marked decrease, RBC Morphology Normal, Sodium 136, Potassium 4.9, Chloride 104, Carbon Dioxide 30, Anion Gap 6.9, BUN 18, Creatinine 0.60 L, Estimated Creat Clear 58, Estimated GFR 135, Est GFR ( Amer) 164, Glucose 124 H, Calcium 9.1, Phosphorus 3.7, Magnesium 2.1, Total Bilirubin 0.4, AST 25, ALT 20, Alkaline Phosphatase 101, Total Protein 6.6, Albumin 3.3 L, Globulin 3.3 H, Albumin/Globulin Ratio 1.0 L I & O for Last 24 hours: Intake & Output 10/05/23 10/06/23 10/07/23 10/08/23 23:59 23:59 23:59 23:59 Intake Total 775 / 775 Balance 775 / 775 Weight 54.93 kg 55.384 kg Constitutional Constitutional: no acute distress, cachectic, chronically ill appearing and cooperative *Routine HEENT Exam Head: Present normocephalic Eye: Present EOMI and PERRL ENT: Present mucous membranes moist *Routine Neck Exam Neck: Present supple; Absent lymphadenopathy *Routine Respiratory Exam Respiratory: Present prolonged expiratory phase, rhonchi, wheezes, crackles and diminished air movement *Routine Cardiovascular Exam Cardiovascular: Present RRR *Routine Abdominal Exam Abdominal: Present soft and normoactive bowel sounds; Absent tenderness *Routine Extremities Exam Extremities: Absent cyanosis, clubbing or edema *Routine Skin Exam Skin: Present warm; Absent rash *Routine Neurological Exam Neurological: Present alert, oriented X3 and moving all extremities; Absent altered mental status Results Data Completed and Pending Labs on day of discharge: Labs from last 24 hours 10/08/23 10/08/23 10/07/23 05:59 03:17 23:25 WBC 11.0 H RBC 3.80 L Hgb 11.2 L Hct 35.3 L MCV 93.0 MCH 29.6 MCHC 31.8 RDW 14.6 Plt Count 713 H MPV 7.9 Neut % (Auto) 91.6 H Lymph % (Auto) 6.6 L Leake % (Auto) 1.6 L Eos % (Auto) 0.2 Baso % (Auto) 0.1 Neut # (Auto) 10.1 H Lymph # (Auto) 0.7 Leake # (Auto) 0.2 Eos # (Auto) 0.0 Baso # (Auto) 0.0 Total Counted 100 Neutrophils % (Manual) 93 H Lymphocytes % (Manual) 6 L Monocytes % (Manual) 1 L Platelet Estimate Marked decrease RBC Morphology Normal VBG pH VBG pCO2 VBG pO2 VBG HCO3 VBG Total CO2 VBG O2 Saturation VBG Base Excess VBG Lactic Acid Sodium 136 Potassium 4.9 Chloride 104 Carbon Dioxide 30 Anion Gap 6.9 BUN 18 Creatinine 0.60 L Estimated Creat Clear 58 Estimated GFR 135 Est GFR ( Amer) 164 Glucose 124 H Calcium 9.1 Phosphorus 3.7 Magnesium 2.1 Total Bilirubin 0.4 AST 25 ALT 20 Alkaline Phosphatase 101 Troponin I < 0.01 NT-Pro-B Natriuret Pep Total Protein 6.6 Albumin 3.3 L Globulin 3.3 H Albumin/Globulin Ratio 1.0 L Chlamy pneumoniae PCR TNP Adenovirus (PCR) Not detected B. pertussis DNA (PCR) TNP Coronavirus OC43 (PCR) Not detected Coronavirus HKU1 (PCR) Not detected Coronavirus 229E (PCR) Not detected SARS-CoV-2 (PCR) Not detected Coronavirus NL63 (PCR) Not detected Human Metapneumovir PCR Not detected Influenza A (H1) PCR Not detected Influ A (H1N1/09) PCR Not detected Influenza A (H3) PCR Not detected Influenza Type A (PCR) Not detected Influenza Type B (PCR) Not detected M. pneumoniae (PCR) TNP Parainfluenza 1 (PCR) Not detected Parainfluenza 2 (PCR) Not detected Parainfluenza 3 (PCR) Not detected Parainfluenza 4 (PCR) Not detected RSV (PCR) Not detected Entero/Rhino (PCR) Not detected 10/07/23 10/07/23 10/07/23 20:40 17:29 17:20 WBC 14.5 H RBC 3.74 L Hgb 11.4 L Hct 35.1 L MCV 93.7 MCH 30.4 MCHC 32.4 RDW 14.6 Plt Count 782 H MPV 7.9 Neut % (Auto) 90.4 H Lymph % (Auto) 6.2 L Leake % (Auto) 2.8 Eos % (Auto) 0.3 Baso % (Auto) 0.2 Neut # (Auto) 13.1 H Lymph # (Auto) 0.9 Leake # (Auto) 0.4 Eos # (Auto) 0.1 Baso # (Auto) 0.0 Total Counted 100 Neutrophils % (Manual) 91 H Lymphocytes % (Manual) 8 L Monocytes % (Manual) 1 L Platelet Estimate Marked increase RBC Morphology Normal VBG pH 7.35 VBG pCO2 50.9 VBG pO2 46.2 H VBG HCO3 27.3 VBG Total CO2 28.8 H VBG O2 Saturation 78.2 H VBG Base Excess 1.6 VBG Lactic Acid 1.8 Sodium 138 Potassium 4.4 Chloride 102 Carbon Dioxide 32 H Anion Gap 8.4 BUN 17 D Creatinine 0.70 Estimated Creat Clear 57 Estimated GFR 113 Est GFR ( Amer) 137 Glucose 106 H Calcium 9.3 Phosphorus Magnesium Total Bilirubin 0.4 AST 21 ALT 21 D Alkaline Phosphatase 102 Troponin I < 0.01 < 0.01 NT-Pro-B Natriuret Pep 237 H Total Protein 7.0 Albumin 3.5 Globulin 3.5 H Albumin/Globulin Ratio 1.0 L Chlamy pneumoniae PCR Adenovirus (PCR) B. pertussis DNA (PCR) Coronavirus OC43 (PCR) Coronavirus HKU1 (PCR) Coronavirus 229E (PCR) SARS-CoV-2 (PCR) Coronavirus NL63 (PCR) Human Metapneumovir PCR Influenza A (H1) PCR Influ A (H1N1/09) PCR Influenza A (H3) PCR Influenza Type A (PCR) Influenza Type B (PCR) M. pneumoniae (PCR) Parainfluenza 1 (PCR) Parainfluenza 2 (PCR) Parainfluenza 3 (PCR) Parainfluenza 4 (PCR) RSV (PCR) Entero/Rhino (PCR) DS: Diagnosis Discharge Diagnosis (1) Acute exacerbation of chronic obstructive pulmonary disease: Status: Acute Code(s): J44.1 - Chronic obstructive pulmonary disease with (acute) exacerbation (2) Acute and chronic respiratory failure with hypoxia: Status: Resolved Code(s): J96.21 - Acute and chronic respiratory failure with hypoxia (3) Pneumonia: Status: Acute Code(s): J18.9 - Pneumonia, unspecified organism Meds Home Medications and Allergies Home Medications Medication Instructions Recorded Confirmed Type aspirin 81 mg tablet,delayed 81 mg PO DAILY #30 tabs 05/02/23 10/07/23 Rx release (Adult Aspirin Regimen) sacubitril 24 mg-valsartan 26 mg 1 tab PO BID CHF #180 tabs 08/14/23 10/07/23 Rx tablet albuterol sulfate 90 mcg/actuation 2 inh inhalation QID PRN shortness 09/02/23 10/07/23 Rx aerosol inhaler of breath or wheezing 90 days #8.5 grams tiotropium 2.5 mcg-olodaterol 2.5 2 puff inhalation DAILY 90 days #4 09/02/23 10/07/23 Rx mcg/actuation mist for inhalation grams (Stiolto Respimat) atorvastatin 10 mg tablet 20 mg (2 x 10 mg) PO DAILY 90 days 10/01/23 10/07/23 Rx #180 tabs duloxetine 60 mg capsule,delayed 60 mg PO DAILY 90 days #90 caps 10/01/23 10/07/23 Rx release gabapentin 800 mg tablet 1,200 mg (1.5 x 800 mg) PO TID 30 10/01/23 10/07/23 Rx days #135 tabs oxycodone 15 mg tablet 15 mg PO QID PRN neuropathy, back 10/01/23 10/07/23 Rx pain, chronic 30 days #120 tabs carvedilol 3.125 mg tablet 3.125 mg PO BID 10/08/23 10/08/23 History ipratropium 0.5 mg-albuterol 3 mg 3 ml inhalation QID PRN Shortness 10/08/23 10/08/23 History (2.5 mg base)/3 mL nebulization Of Breath Or Wheezing soln levofloxacin 750 mg tablet 750 mg PO 1100 2 days #2 tabs 10/08/23 Rx nicotine 21 mg/24 hr daily 21 mg transdermal DAILYP PRN 10/08/23 Rx transdermal patch Nicotine Cravings 28 days #28 ea prednisone 20 mg tablet 40 mg (2 x 20 mg) PO DAILY 4 days 10/08/23 Rx #8 tabs New Prescriptions to Start Prescriptions: levofloxacin Kota Arrington nicotine Murphy,Kota prednisone Murphy,Kota Allergies Allergy/AdvReac Type Severity Reaction Status Date / Time methocarbamol [From ROBAXIN] Allergy Unknown Verified 10/05/23 20:50 pregabalin [From LYRICA] Allergy Unknown Verified 10/05/23 20:50 ibuprofen AdvReac Verified 10/05/23 20:50 Discharge Plan Disposition Patient Disposition: Home, Self-Care Condition: Good Follow up Plan Follow up with: Vikas Rizo DO [Primary Care Provider] - 10/15/23 9:00 am Cait Marcelo MD [Physician] - 10/15/23 2:30 pm Prescriptions/Medication Reconciliation: New prednisone 20 mg Tablet 40 mg PO DAILY 4 Days Qty: 8 0RF nicotine 21 mg/24 hr Patch 24 Hour 21 mg transdermal DAILYP PRN (Reason: Nicotine Cravings) 28 Days Qty: 28 0RF levofloxacin 750 mg Tablet 750 mg PO 1100 2 Days Qty: 2 0RF Continued aspirin [Adult Aspirin Regimen] 81 mg tablet,delayed release (DR/EC) 81 mg PO DAILY Qty: 30 2RF atorvastatin 10 mg tablet 20 mg PO DAILY 90 Days Qty: 180 2RF duloxetine 60 mg capsule,delayed release(DR/EC) 60 mg PO DAILY 90 Days Qty: 90 4RF gabapentin 800 mg tablet 1,200 mg PO TID 30 Days Qty: 135 2RF Rx Instructions: OK to fill today 06-07-2023 oxycodone 15 mg tablet 15 mg PO QID PRN (Reason: neuropathy, back pain, chronic) 30 Days Qty: 120 0RF Rx Instructions: OK to fill today 06-07-2023 sacubitril-valsartan 24-26 mg tablet 1 tab PO BID Qty: 180 3RF Stiolto Respimat 2.5-2.5 mcg/actuation mist 2 puff inhalation DAILY 90 Days Qty: 4 2RF albuterol sulfate 90 mcg/actuation HFA aerosol inhaler 2 inh inhalation QID PRN (Reason: shortness of breath or wheezing) 90 Days Qty: 8.5 2RF ipratropium-albuterol 0.5 mg-3 mg(2.5 mg base)/3 mL solution for nebulization 3 ml inhalation QID PRN (Reason: Shortness Of Breath Or Wheezing) carvedilol 3.125 mg tablet 3.125 mg PO BID Problem Reconciliation Problems Reviewed?: Yes Patient Discharge Instructions ACTIVITY: Continue current activity DIET: continue same diet Patient Instructions: DI for Chronic Obstructive Pulmonary Disease, DI for Pneumonia -- Adult, DI for Respiratory Failure Providers Primary Care Provider: Vikas Rizo Admit Provider: Dudley Mckeon Attending Provider: Dudley Mckeon
[2023-10-08 12:00] VITALS: BP 109/49; PULSE 75; RESP 18; TEMP 36.6; O2SAT 91
--- NOTE | 2023-10-08 12:44 | HMH.PHAINT1 ---
Pharmacy Intervention Comments: DISCHARGE MEDICATION COUNSELING WAS PROVIDED TO PATIENT AND FAMILY MEMBER ON LEVOFLOXACIN, PREDNISONE, AND NICOTINE PATCHES FOR INDICATION, DOSE, AND POSSIBLE SIDE EFFECTS. PATIENT AND FAMILY MEMBER VERBALIZED UNDERSTANDING WITH NO FURTHER QUESTIONS.
== END 2023-10-08 13:20 | disposition home or self-care (01) ==
LOC: ER 19:27 → 2ND 20:35
PROVIDERS: Internal Medicine Adolescent Medicine; Nurse Practitioner Family; Admitting Provider Internal Medicine; Emergency Provider Emergency Medicine; PCP Internal Medicine; Visit Provider Internal Medicine
DX: J44.1 Chronic obstructive pulmonary disease with (acute) exacerbation (principal); J96.21 Acute and chronic respiratory failure with hypoxia; J18.9 Pneumonia, unspecified organism; I42.8 Other cardiomyopathies; E78.2 Mixed hyperlipidemia; I10 Essential (primary) hypertension; F41.9 Anxiety disorder, unspecified; R06.02 Shortness of breath; Z99.81 Dependence on supplemental oxygen; Z79.899 Other long term (current) drug therapy; I25.2 Old myocardial infarction; Z87.891 Personal history of nicotine dependence
CPT/HCPCS: 36415; 71045; 80053; 82803; 83735; 83880; 84100; 84484; 85007; 85025; 87070; 87205; 87632; 87635; 93005; 94640; 94761; 97161; 97165; 99285; G0378

== ENCOUNTER 2023-10-28 12:47 | Outpatient (CLI) | payer MEDICARE, MEDICAID, SELFPAY ==
--- NOTE | 2023-10-28 13:26 | US_ITS ---
PROCEDURE INFORMATION: Exam: US Left Breast, Complete US Right Breast, Complete Exam date and time: 10/28/2023 1:37 PM Age: 63 years old Clinical indication: Short-term radiographic follow-up of both retroareolar regions TECHNIQUE: Imaging protocol: Complete ultrasound of all four quadrants of the left breast and the retroareolar regions, including ultrasound of the axilla when performed. Complete ultrasound of all four quadrants of the right breast and the retroareolar regions, including ultrasound of the axilla when performed. COMPARISON: US BREAST LT COMPLETE 04/26/2023 1:23 PM FINDINGS: ULTRASOUND: Breast ultrasound findings: Sonographic images of both breasts including the retroareolar regions, all 4 quadrants and the axilla do not demonstrate any solid or cystic masses. No architectural distortion or acoustical shadowing. No skin thickening or axillary adenopathy. No retroareolar masses. IMPRESSION: No sonographic evidence of malignancy. Annual mammographic screening is recommended unless otherwise clinically indicated. ASSESSMENT: BI-RADS Category 1: Negative.
== END 2023-10-28 23:59 | disposition home or self-care (01) ==
LOC: RAD 12:48
PROVIDERS: PCP Internal Medicine; Visit Provider Surgery
DX: N64.59 Other signs and symptoms in breast (principal); J43.9 Emphysema, unspecified; Z87.891 Personal history of nicotine dependence
CPT/HCPCS: 76641; 94762

== ENCOUNTER 2023-11-05 00:10 | Inpatient (IN) | payer MEDICARE, MEDICAID, SELFPAY ==
[2023-11-05] VITALS (16 sets, daily range): BP systolic 100–145; BP diastolic 47–67; PULSE 70–95; RESP 18–29; TEMP 36.8–37.5; O2SAT 64–97; BMI 17.4; BMI 17.5
--- NOTE | 2023-11-05 00:14 | CT_ITS ---
PROCEDURE INFORMATION: Exam: CTA Chest With Contrast Exam date and time: 11/05/2023 1:14 AM Age: 63 years old Clinical indication: Shortness of breath; Additional info: SOA hypoxia TECHNIQUE: Imaging protocol: Computed tomographic angiography of the chest with contrast. Exam focused on the arteries. 3D rendering (Not supervised by radiologist): MIP and/or 3D reconstructed images were created by the technologist. Radiation optimization: All CT scans at this facility use at least one of these dose optimization techniques: automated exposure control; mA and/or kV adjustment per patient size (includes targeted exams where dose is matched to clinical indication); or iterative reconstruction. Contrast material: ISOVUE; Contrast volume: 70 ml; Contrast route: INTRAVENOUS (IV); COMPARISON: CT ANGIO CHEST PE PROTOCOL 02/24/2022 8:23 PM FINDINGS: Pulmonary arteries: The study is significantly limited secondary to respiratory motion artifact and/or suboptimal timing of the bolus without central pulmonary embolism. Aorta: Vascular calcifications Lungs: Pulmonary emphysema. 1.2 x 1.0 cm spiculated pulmonary nodule in the left apex. Bilateral heterogeneous consolidative and ground-glass pulmonary opacities including right lower lobe, right middle lobe, lingular, suspicious for multilobar pneumonia. Scattered areas of bronchial thickening. Evaluation for small pulmonary nodule is significantly limited due to significant respiratory motion artifact. Pleural spaces: No pneumothorax. No pleural effusion. Heart: No pericardial effusion. Esophagus: Distal esophageal thickening, probably infectious or inflammatory. Lymph nodes: Moderate mediastinal and to lesser degree bilateral hilar lymphadenopathy, indeterminate, possibly malignancy. Spleen: Multiple calcified splenic granulomas. Bones/joints: Stabilization metallic hardware in the cervical spine. Soft tissues: No discreet soft tissue mass. IMPRESSION: 1. Significantly limited study without central pulmonary embolism. 2. Bilateral heterogeneous consolidative and ground-glass pulmonary opacities including right lower lobe, right middle lobe, lingular, suspicious for multilobar pneumonia. Recommend imaging follow-up until complete resolution as malignancy may have a similar appearance. 3. Moderate mediastinal and to lesser degree bilateral hilar lymphadenopathy, indeterminate, possibly malignancy. Correlate with PET-CT 4. Distal esophageal thickening, probably infectious or inflammatory. Recommend direct visualization. 5. Pulmonary emphysema. 1.2 x 1.0 cm spiculated suspicious pulmonary nodule in the left apex. Consider non-emergent PET/CT or tissue sampling.(Reference: David) References: David Patel et al. Guidelines for Management of Incidental Pulmonary Nodules Detected on CT Images: From the Fleischner Society 2017. Radiology. 2017;284(1):228-243.
--- NOTE | 2023-11-05 00:14 | XR_ITS ---
PROCEDURE INFORMATION: Exam: XR Chest Exam date and time: 11/05/2023 12:21 AM Age: 63 years old Clinical indication: Shortness of breath; Additional info: SOA TECHNIQUE: Imaging protocol: Radiologic exam of the chest. Views: 1 view. COMPARISON: CR XR CHEST PORTABLE 10/07/2023 5:31 PM FINDINGS: Lungs: Bilateral pulmonary opacities better evaluated on same-day CT chest. Pleural spaces: No pneumothorax. Heart/Mediastinum: Unremarkable cardiomediastinal silhouette. Bones/joints: Metallic plate in the cervical spine. IMPRESSION: Bilateral pulmonary opacities better evaluated on same-day CT chest.
--- NOTE | 2023-11-05 00:17 | ECG_ITS ---
APPROVED REPORT Exam: Resting ECG HR:90 bpm ECG Measurements Heart Rate 90 AXES VT 128 P 93 QRSd 84 QRS 88 QT 329 T 69 QTc 376 Conclusion SINUS RHYTHM SEPTAL MYOCARDIAL INFARCTION , PROBABLY OLD [40+ ms Q WAVE IN V1/V2] ABNORMAL ECG UNCONFIRMED REPORT Electronically signed by : BYRON JEONG, 11/05/2023 06:59:54
--- NOTE | 2023-11-05 00:17 | PC.NURSE ---
Attending notified of Sepsis risk. No new orders
--- NOTE | 2023-11-05 00:17 | [facility].EDCP ---
Discharge Plan Disposition Patient Disposition: Admitted Clinical Impressions Clinical Impression: Hypoxia, Sepsis CAP (community acquired pneumonia) Qualifiers: Laterality: right Lung location: lower lobe of lung Qualified Code(s): J18.9 - Pneumonia, unspecified organism Discharge ED Provider: Michelle Capps General Chief Complaint: Shortness of Breath/Dyspnea Stated Complaint: Difficulty breathing Time Seen by Provider: 11/05/23 00:15 Mode of Arrival: Wheelchair Source of Information: Patient and Relative Limitations: No Limitations Description of Symptoms (Recalled from ER Triage Doc. by RN): 63 M presents from home with daughter who reports her father has become more confused and short of air over the last 4 days. Patient normally wears 4L/NC at home; however, still reports difficulty catching his breath. Patient's daughter states that he has been nodding off more easily. Patient arrives with oxygen saturation 64%. Patient has been denying his family to bring him to the ER for evaluation. History of Present Illness HPI narrative: 63-year-old male with history of chronic respiratory failure on 4 L nasal cannula at home, COPD, hypertension, cardiomyopathy, hyperlipidemia presents to the ER with concerns of confusion and shortness of breath for the last 4 days. He is having difficulty catching his breath despite wearing his oxygen at home. Daughter reports patient has been nodding off more easily and has been confused. Reportedly family has been checking his oxygen saturations at home and he has been in the 70s, but patient has refused to come by ambulance to the ER. Daughter forced him to come to the ER today. He arrived with oxygen saturation 64% initially. Patient complains of right-sided chest pain. Family reports patient has felt warm at home and they are concerned for fever. Patient denies vomiting, he had 1 episode of recent diarrhea. Related Data Home Medications Medication Instructions Recorded Confirmed albuterol sulfate 90 mcg/actuation 2 inh inhalation QIDP PRN 11/05/23 11/05/23 aerosol inhaler Shortness Of Breath Or Wheezing aspirin 81 mg tablet 81 mg PO DAILY 11/05/23 11/05/23 atorvastatin 20 mg tablet 20 mg PO HS 11/05/23 11/05/23 carvedilol 3.125 mg tablet 3.125 mg PO BID 11/05/23 11/05/23 duloxetine 60 mg capsule,delayed 60 mg PO DAILY 11/05/23 11/05/23 release gabapentin 800 mg tablet 1,200 mg PO TID 11/05/23 11/05/23 olanzapine 7.5 mg tablet 7.5 mg PO HS 11/05/23 11/05/23 oxycodone 15 mg tablet 15 mg PO QID 11/05/23 11/05/23 tiotropium 2.5 mcg-olodaterol 2.5 2 inh inhalation DAILY 11/05/23 11/05/23 mcg/actuation mist for inhalation (Stiolto Respimat) Allergies Allergy/AdvReac Type Severity Reaction Status Date / Time methocarbamol [From ROBAXIN] Allergy Unknown Verified 10/31/23 13:54 pregabalin [From LYRICA] Allergy Unknown Verified 10/31/23 13:54 ibuprofen AdvReac Verified 10/31/23 13:54 [facility] Disclaimer: The information contained in this section may have been updated after the patient was seen, as this information can be updated by other users. Medical History SIRS (systemic inflammatory response syndrome) Acute and chronic respiratory failure with hypoxia Postherpetic trigeminal neuralgia Is giving him quite a bit of discomfort. 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 Patient is scheduled for this in January 2024. Encounter for screening for malignant neoplasm of lung in current smoker with 30 pack year history or greater Abnormal screening computed tomography (CT) of chest Nonischemic cardiomyopathy Diastolic dysfunction Elevated left ventricular end-diastolic pressure (LVEDP) Non-STEMI (non-ST elevated myocardial infarction) Emphysema/COPD Pneumonia due to gram-negative bacteria Low body mass index (BMI) COPD (chronic obstructive pulmonary disease) with acute bronchitis Upper respiratory infection Rhinovirus infection HLD (hyperlipidemia) Lipid panel done April 2023 reveals a triglyceride 114 total cholesterol 147 LDL of 88 and HDL 39. This is not a bad panel at all. Patient is taking atorvastatin to 10 mg tablets per day at 20 mg total. Tobacco dependence syndrome Chest pain Cardiomyopathy Preoperative clearance Poisoning by opiate or related narcotic Atypical pneumonia Postherpetic neuralgia Left against medical advice HTN (hypertension) Blood pressures have been routinely less than 130/80 on a regular basis. Today was 120/68. Will continue with the sacubitril/valsartan at 24/26 mg twice a day. Additionally he is taking carvedilol. Elevated C-reactive protein CAP (community acquired pneumonia) COPD (chronic obstructive pulmonary disease) Pain, eye, right Herpes zoster ophthalmicus, right eye Eye pain Shingles Neuropathy Surgical History H/O cervical spine surgery H/O cardiac catheterization Family History Mother Lung cancer Family history of acute congestive heart failure Father Lung cancer Family history of acute congestive heart failure Social History Smoking Status: Former smoker tobacco type: cigarettes packs per day: 1 smoking status stop date: december 2021 second hand exposure: Yes alcohol intake: current alcohol intake frequency: holidays/special occasions only substance use type: denies use current occupational status: disabled Travel in the last 8 weeks: None household members: children housing: house marital status: current occupational exposures/hazards: No pets and animals: No caffeine: Yes ROS Obtained: Yes All systems reviewed & no additional complaints except as documented Constitutional Constitutional: Denies chills, Reports fever(s), Denies headache(s), Reports malaise and Denies weakness Eyes Eyes: Denies change in vision ENT Ears, Nose, Mouth, and Throat: Denies dizziness, Denies headache(s), Denies nasal congestion and Denies sore throat Cardiovascular Cardiovascular: Reports chest pain, Reports dyspnea and Denies leg edema Respiratory Respiratory: Denies cough and Reports dyspnea Gastrointestinal Gastrointestingal: Reports diarrhea; Denies abdominal pain, constipation, nausea or vomiting Genitourinary Male Genitourinary: Denies difficulty urinating Musculoskeletal Musculoskeletal: Denies arthralgias, Denies myalgias, Denies numbness and Denies tingling Integumentary/Breasts Skin/Breast: Denies change in pigmentation Neurologic Neurologic: Denies dizziness, Denies headache(s), Denies numbness, Denies tingling and Denies weakness Physical Exam General General appearance: alert Comment: Chronically ill-appearing Head Head exam: atraumatic and normocephalic Eye Eye exam: Present PERRL and EOMI ENT ENT exam: Present mucous membranes moist Neck Neck exam: Present normal inspection and full ROM Chest Chest inspection: Present symmetric chest wall rise Respiratory Respiratory exam: Present respiratory distress (Tachypneic, hypoxic, accessory muscle use), wheezes (Expiratory), accessory muscle use and other (Rales in the right lung as well as left upper lung field); Absent stridor Cardiovascular Cardiovascular exam: Present normal rhythm and tachycardia Abdominal Exam Abdominal exam: Present soft; Absent distention or tenderness Extremities Exam Extremities exam: Present full ROM Neurological Exam Neurological exam: Present alert, CN II-XII intact and normal gait; Absent oriented X3 (Oriented to self, location, disoriented to year) or motor sensory deficit Psychiatric Psychiatric exam: Present normal affect and normal mood Skin Skin exam: Present warm and dry HEART Score HEART Score HEART Score assessment performed?: Yes History (anamnesis): Slightly suspicious ECG: Non-specific disturbance Age: 45-65 years Risk factors: 3 or more risk factors Troponin: </= normal limit HEART Score: 4 Critical Care Critical Care Time Critical Care Time: Yes Attestation: On 11/05/23, the high probability of a clinically significant, sudden or life threatening deterioration of the following system(s) (respiratory) required my full and direct attention, intervention and personal management. The time I documented below is in addition to time spent performing reported procedures but includes the following listed in this critical care notation. Total Time Total Critical Care Time: 35 Medical Decision Making Marck Inquiry Pt receiving controlled substance: No Vital Signs Vital Signs: 11/05/23 00:10 Temperature 98.2 F Temperature Source Axillary Pulse Rate [Left] 94 H Respiratory Rate 24 Blood Pressure [Right Arm] 145/67 H Blood Pressure Mean [Right Arm] 93 Blood Pressure Source [Right Arm] Automatic Cuff Blood Pressure Position [Right Arm] Sitting 02 Sat by Pulse Oximetry 64 L Oxygen Delivery Method Room Air Lab Data Labs: Lab Results 11/05/23 00:14: VBG pH 7.24 L, VBG pCO2 62.4 H, VBG pO2 31.6, VBG HCO3 26.3, VBG Total CO2 28.2 H, VBG O2 Saturation 54.5, VBG Base Excess -1.0, VBG Lactic Acid 1.3 11/05/23 00:24: WBC 15.1 H, RBC 3.57 L, Hgb 11.3 L, Hct 34.3 L, MCV 96.1 H, MCH 31.7 H, MCHC 33.0, RDW 15.9, Plt Count 626 H, MPV 7.7, Neut % (Auto) 80.8 H, Lymph % (Auto) 14.5, Gaines % (Auto) 3.8, Eos % (Auto) 0.5, Baso % (Auto) 0.5, Neut # (Auto) 12.2 H, Lymph # (Auto) 2.2, Gaines # (Auto) 0.6, Eos # (Auto) 0.1, Baso # (Auto) 0.1, Total Counted 100, Neutrophils % (Manual) 82 H, Lymphocytes % (Manual) 18, Platelet Estimate Normal, RBC Morphology Normal, Sodium 133 L, Potassium 4.4, Chloride 98, Carbon Dioxide 29, Anion Gap 10.4, BUN 20, Creatinine 1.00, Estimated Creat Clear 58, Estimated GFR 75, Est GFR ( Amer) 91, Glucose 159 H, Lactate 1.0, Calcium 8.8, Total Bilirubin 0.6, AST 43, ALT 43, Alkaline Phosphatase 95, Troponin I < 0.01, NT-Pro-B Natriuret Pep 284 H, Total Protein 7.2, Albumin 3.9, Globulin 3.3 H, Albumin/Globulin Ratio 1.2 11/05/23 00:24 11/05/23 00:24 Response Orders (Tests/Meds): ED MEDICATIONS Generic Name Dose Route Start Last Admin Trade Name Freq PRN Reason Stop Dose Admin Acetaminophen 650 mg 11/05/23 01:48 Acetaminophen 325mg Tab PO 12/05/23 01:47 Q4HP PRN Fever or Mild Pain (1-3) Docusate Sodium 100 mg 11/05/23 09:00 Docusate Sodium 100 Mg Capsule PO 12/05/23 08:59 DAILY [facility] Enoxaparin Sodium 40 mg 11/05/23 09:00 Enoxaparin 40mg/0.4ml Syringe SQ 12/05/23 08:59 DAILY [facility]A Vancomycin HCl 1,000 mg/ 250 mls @ 125 mls/hr 11/05/23 00:30 11/05/23 00:33 Sodium Chloride IV 11/05/23 02:29 125 mls/hr ONCE ONE Administration Sodium Chloride 1,000 mls @ 50 mls/hr 11/05/23 02:00 Sod Chlor 0.9% 1000ml Bag IV 12/05/23 01:59 .Q20H MARCELA Miscellaneous 1 each 11/05/23 00:30 11/05/23 00:27 Vancomycin Consult Request NOTAPPLIC 12/05/23 00:29 1 each CONSULT PHARMACY M[facility]ELA Administration Morphine Sulfate 2 mg 11/05/23 01:48 Morphine 2mg/Ml Syringe IV 12/05/23 01:47 Q2HP PRN Severe Pain (7-10) Nicotine 21 mg 11/05/23 01:48 Nicotine 21mg/24hr Patch TD 12/05/23 01:47 DAILYP PRN Nicotine Cravings Ondansetron HCl 4 mg 11/05/23 01:48 Ondansetron 4mg/2ml Vial IV 12/05/23 01:47 Q8HP PRN Nausea Pantoprazole Sodium 40 mg 11/05/23 09:00 Pantoprazole 40mg Tablet PO 12/05/23 08:59 DAILY M[facility]A Discontinued Medications Generic Name Dose Route Start Last Admin Trade Name Freq PRN Reason Stop Dose Admin Albuterol/Ipratropium 9 ml 11/05/23 00:14 11/05/23 00:32 Ipratropium/Albuterol 3 Ml Neb IH 11/05/23 00:15 9 ml ONCE ONE Administration Piperacillin Sod/Tazobactam 100 mls @ 200 mls/hr 11/05/23 00:17 11/05/23 00:34 Sod 4.5 gm/ Sodium Chloride IV 11/05/23 00:46 200 mls/hr ONCE ONE Administration Lactated Ringer's 1,000 mls @ 1,650 mls/hr 11/05/23 00:21 11/05/23 00:33 Lactated Ringer's 1000 Ml Bag IV 11/05/23 00:57 1,650 mls/hr .Q37M ONE Administration Iopamidol 70 ml 11/05/23 01:23 11/05/23 01:24 Iopamidol-370 (76%);100ml Bottle IV 11/05/23 01:24 70 ml ONCE ONE Administration Sodium Chloride 50 ml 11/05/23 01:23 11/05/23 01:25 0.9 % Sodium Chloride 50 Ml Vial IV 11/05/23 01:24 50 ml ONCE ONE Administration Sodium Chloride 10 ml 11/05/23 01:23 11/05/23 01:24 Sodium Chloride 0.9% 10ml Syr (Rad Only) IV 11/05/23 01:24 10 ml ONCE ONE Administration ORDERS Category Date Time Status CT angio chest PE protocol Stat Cat Scan 11/05/23 00:14 Taken CXR --portable [XR chest portable] Stat Exams 11/05/23 00:14 Taken BNP [NT Pro Brain Natriuretic Pep.] Stat Lab 11/05/23 00:24 Completed CBC w/Auto Diff [Complete Blood Count Auto Diff] Stat Lab 11/05/23 00:24 Completed CMP [Comprehensive Metabolic Panel] Stat Lab 11/05/23 00:24 Completed Complete Blood Count Auto Diff AMLAB Lab 11/05/23 06:00 Ordered Comprehensive Metabolic Panel AMLAB Lab 11/05/23 06:00 Ordered Lactic Acid Stat Lab 11/05/23 00:24 Completed Magnesium AMLAB Lab 11/05/23 06:00 Ordered Trop I [Troponin I] Stat Lab 11/05/23 00:24 Completed Troponin I Q3H Lab 11/05/23 03:15 Ordered Troponin I Q3H Lab 11/05/23 06:15 Ordered Urinalysis and Microscopic Stat Lab 11/05/23 00:23 Ordered Blood Culture Stat Micro 11/05/23 00:29 Received Sputum Culture & Gram Stain Stat Micro 11/05/23 00:23 Ordered VBG [Venous Blood Gas] Stat RT 11/05/23 00:23 Ordered ECG Request Stat Y 11/05/23 00:14 Ordered Tissue Perfus/Sepsis Re-Eval Sepsis Re-Evaluation Performed: Yes Date Performed: 11/05/23 Time Performed: 01:50 MDM Narrative Medical Decision Narrative: In summary, this 63-year-old male presents to the emergency department today with concerns of shortness of breath, confusion, weakness, fevers. On initial evaluation patient is tachycardic, hypoxic, he has wheezes and rales in the lung bui, findings of respiratory distress initially, patient is overall ill-appearing, weak, no focal neurologic deficits though he is slightly confused, GCS 14. Patient was immediately placed on nonrebreather and had improvement of his oxygen saturation. He received DuoNebs immediately. Differential diagnosis includes but is not limited to pneumonia, PE, ACS, COPD exacerbation, patient does meet sepsis criteria and received IV fluids and broad-spectrum antibiotics. Based on these concerns, I ordered basic labs, urine studies, chest x-ray, CTA PE, cardiac workup. ECG personally interpreted demonstrates normal sinus rhythm, rate 90, normal axis, normal [place], normal QTc, no STEMI. Patient received DuoNebs, IV fluids, full sepsis bolus, broad-spectrum antibiotics for treatment. Patient has multiple severe comorbidities that complicate his current presentation including a history of pneumonia, COPD, hypertension, all of which increase his overall morbidity. Review of recent records demonstrates patient was admitted at the end of September for acute on chronic respiratory failure. When he was initially admitted he had a history of requiring 2 L nasal cannula at home, but was requiring 4 L in the hospital. Patient was treated for community-acquired pneumonia, received Rocephin and azithromycin during this admission. Labs personally reviewed demonstrate leukocytosis with WBC 15.1, anemia with hemoglobin 11.3, thrombocythemia is improved from prior, VBG with acidosis, pH 7.24, hypercarbia which is likely persistent due to his history of COPD, patient does have mild hyponatremia with sodium 133, nonactionable at this time, good kidney and liver function. Initial troponin undetectably low at less than 0.01, reassuring against heart strain or ACS. XR personally interpreted demonstrates bilateral infiltrates, right worse than left. CT imaging personally interpreted demonstrate bilateral infiltrates including in the left lingula as well as the posterior right lung. I do not appreciate large pulmonary embolism. See radiology read for final interpretation. On reassessment, patient is now on 4 L nasal cannula, he is breathing more comfortably, however given his cachectic appearance and severe respiratory distress on arrival as well as hypoxia and history of recent admission for similar symptoms, I believe he requires admission for continued management. His tissue perfusion is improving. I discussed this case with the hospitalist including patient's recent admission, treatments in the ER, and current requirements. He was accepted for admission.
[2023-11-05] MEDS: VANCOMYCIN CONSULT REQUEST 1 EACH NOTAPPLIC (00:27)
[2023-11-05] MEDS: IPRATROPIUM/ALBUTEROL 3 ML NEB 9 ML IH (00:32)
[2023-11-05] MEDS: VANCOMYCIN HCL 1,000 MG in 0.9 % SODIUM CHLORIDE 250 ML 125 MG IV (00:33)
[2023-11-05] MEDS: LACTATED RINGERS 1000ML 1,000 ML 1650 ML IV (00:33)
[2023-11-05 00:34] LABS: Basophils # 0.1 K/mm3 (0-0.2); Basophils % 0.5 % (0.1-2.0); Eosinophils # 0.1 K/mm3 (0.0-0.4); Eosinophils % 0.5 % (0.1-12.0); Hematocrit 34.3 % (42.0-52.0); Hemoglobin 11.3 g/dL (14.1-18.0); Lymphocytes # 2.2 K/mm3 (0.7-4.5); Lymphocytes % 14.5 % (10-50); Mean Corpuscular Hemoglobin 31.7 pg (27.0-31.2); Mean Corpuscular Volume 96.1 fl (80-94); Mean Platelet Volume 7.7 fl (7.4-10.4); Monocytes # 0.6 K/mm3 (0.1-1.0); Monocytes % 3.8 % (1.7-9.3); Neutrophils # 12.2 K/mm3 (1.8-7.8); Neutrophils % 80.8 % (37.0-80.0); Platelet Count 626 K/mm3 (142-424); Red Blood Count 3.57 M/mm3 (4.60-6.20); Red Cell Distribution Width 15.9 % (11.5-17.5); White Blood Count 15.1 K/mm3 (4.8-10.8)
[2023-11-05] MEDS: PIPERACILLIN/TAZO 4.5 GM in 0.9 % SODIUM CHLORIDE 100 ML IV ×4 (00:34→21:17)
[2023-11-05 00:38] LABS: MANUAL DIFFERENTIAL MANUAL DIFFERENTIAL (MANUAL DIFF)
[2023-11-05 00:39] LABS: Lactate Venous 1.3 mmol/L (0.4-2.0); VBG HCO3 26.3 mmol/L (23-30); VBG Oxygen Saturation 54.5 % (50-70); VBG PCO2 62.4 mmol/L (35-51); VBG PH 7.24 mmol/L (7.31-7.41); VBG PO2 31.6 mmol/L (28-40); VBG Total CO2 28.2 mmol/L (23-27)
[2023-11-05 00:41] LABS: Chloride 98 mmol/L (98-107); Sodium 133 mmol/L (136-145)
[2023-11-05 00:42] LABS: Potassium 4.4 mmoL/L (3.5-5.1)
[2023-11-05 00:44] LABS: Alanine Aminotransferase 43 U/L (12-78); Alkaline Phosphatase 95 U/L (38-126); Anion Gap 10.4 mEq/L (5-15); Aspartate Amino Transferase 43 U/L (17-59); Bilirubin,Total 0.6 mg/dl (0.2-1.3); Blood Urea Nitrogen 20 mg/dl (9-20); Carbon Dioxide 29 mmol/L (22.0-30.0); Creatinine Clearance Estimated 58 mL/min (50-200); Estimated Glomerular Filt Rate 75 ml/min (>60); GFR (African American) 91 ML/MIN (>60)
[2023-11-05 00:45] LABS: Albumin Level 3.9 g/dl (3.5-5.0); Albumin/Globulin Ratio 1.2 (1.1-1.8); Calcium 8.8 mg/dl (8.4-10.2); Globulin 3.3 g/dL (1.3-3.2); Glucose 159 mg/dl (74-100); Total Protein,Serum 7.2 g/dl (6.3-8.2)
[2023-11-05 00:54] LABS: NT Pro Brain Natriuretic Pep. 284 pg/mL (0-125)
[2023-11-05 00:59] LABS: Troponin I < 0.01 ng/ml (0.00-0.034)
[2023-11-05 01:08] LABS: Lymphocytes % 18 % (10-50); Neutrophils % 82 % (42-76); Platelet Estimate Normal; RBC Morphology Normal; Total Cells Counted 100
[2023-11-05] MEDS: SODIUM CHLORIDE 0.9% 10ML SYR (RAD ONLY) 10 ML IV (01:24)
[2023-11-05] MEDS: IOPAMIDOL-370 (76%);100ML BOTTLE 70 ML IV (01:24)
[2023-11-05] MEDS: 0.9 % SODIUM CHLORIDE 50 ML VIAL IV (01:25)
--- NOTE | 2023-11-05 01:47 | PC.NURSE ---
speaking with hospitalist on phone for admission.
--- NOTE | 2023-11-05 01:48 | PC.NURSE ---
Pt being admitted to room 211 for pneumonia, hypoxia, and sepsis to hospitalist; acute status.
--- NOTE | 2023-11-05 01:52 | EXP.HP ---
History of Present Illness *Admission Date: 11/05/23 *Reason for visit:: SOB *History of present illness: This is a 63-year-old male with PMHx of chronic respiratory failure on 4 L nasal cannula at home, COPD, hypertension, cardiomyopathy, hyperlipidemia coming to the hospital by daughter, who reported concerns of confusion and shortness of breath for the last 4 days. Daughter reports patient has been nodding off more easily and has been confused. Reportedly his oxygen saturations at home and he has been in the 70s. He arrived with oxygen saturation 64% initially. Patient complains of right-sided chest pain. they also concerned for fever. Patient denies vomiting, he had 1 episode of recent diarrhea. admitted. [facility] Disclaimer: The information contained in this section may have been updated after the patient was seen, as this information can be updated by other users. Medical History SIRS (systemic inflammatory response syndrome) Acute and chronic respiratory failure with hypoxia Postherpetic trigeminal neuralgia Is giving him quite a bit of discomfort. 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 Patient is scheduled for this in January 2024. Encounter for screening for malignant neoplasm of lung in current smoker with 30 pack year history or greater Abnormal screening computed tomography (CT) of chest Nonischemic cardiomyopathy Diastolic dysfunction Elevated left ventricular end-diastolic pressure (LVEDP) Non-STEMI (non-ST elevated myocardial infarction) Emphysema/COPD Pneumonia due to gram-negative bacteria Low body mass index (BMI) COPD (chronic obstructive pulmonary disease) with acute bronchitis Upper respiratory infection Rhinovirus infection HLD (hyperlipidemia) Lipid panel done April 2023 reveals a triglyceride 114 total cholesterol 147 LDL of 88 and HDL 39. This is not a bad panel at all. Patient is taking atorvastatin to 10 mg tablets per day at 20 mg total. Tobacco dependence syndrome Chest pain Cardiomyopathy Preoperative clearance Poisoning by opiate or related narcotic Atypical pneumonia Postherpetic neuralgia Left against medical advice HTN (hypertension) Blood pressures have been routinely less than 130/80 on a regular basis. Today was 120/68. Will continue with the sacubitril/valsartan at 24/26 mg twice a day. Additionally he is taking carvedilol. Elevated C-reactive protein CAP (community acquired pneumonia) COPD (chronic obstructive pulmonary disease) Pain, eye, right Herpes zoster ophthalmicus, right eye Eye pain Shingles Neuropathy Surgical History H/O cervical spine surgery H/O cardiac catheterization Family History Mother Lung cancer Family history of acute congestive heart failure Father Lung cancer Family history of acute congestive heart failure Social History Smoking Status: Former smoker tobacco type: cigarettes packs per day: 1 smoking status stop date: december 2021 second hand exposure: Yes alcohol intake: current alcohol intake frequency: holidays/special occasions only substance use type: denies use current occupational status: disabled Travel in the last 8 weeks: None household members: children housing: house marital status: current occupational exposures/hazards: No pets and animals: No caffeine: Yes Review of Systems Review of Systems Review of systems:: pertinent systems reviewed and negative unless documented below Constitutional Constitutional: Reports weakness ENT Ears, Nose, Mouth, and Throat: Denies dizziness *Musculoskeletal Musculoskeletal: Denies numbness and Denies tingling *Neurologic Neurologic: Denies dizziness, Denies numbness, Denies tingling and Reports weakness Meds Home Medications and Allergies Home Medications Medication Instructions Recorded Confirmed Type albuterol sulfate 90 mcg/actuation 2 inh inhalation QIDP PRN 11/05/23 11/05/23 History aerosol inhaler Shortness Of Breath Or Wheezing aspirin 81 mg tablet 81 mg PO DAILY 11/05/23 11/05/23 History atorvastatin 20 mg tablet 20 mg PO HS 11/05/23 11/05/23 History carvedilol 3.125 mg tablet 3.125 mg PO BID 11/05/23 11/05/23 History duloxetine 60 mg capsule,delayed 60 mg PO DAILY 11/05/23 11/05/23 History release gabapentin 800 mg tablet 1,200 mg PO TID 11/05/23 11/05/23 History multivitamin 1 tab PO DAILY 11/05/23 11/05/23 History olanzapine 20 mg tablet 20 mg PO HS 11/05/23 11/05/23 History oxycodone 15 mg tablet 15 mg PO QID 11/05/23 11/05/23 History tiotropium 2.5 mcg-olodaterol 2.5 2 inh inhalation DAILY 11/05/23 11/05/23 History mcg/actuation mist for inhalation (Stiolto Respimat) New Prescriptions to Start Prescriptions: Allergies Allergy/AdvReac Type Severity Reaction Status Date / Time methocarbamol [From ROBAXIN] Allergy Unknown Verified 10/31/23 13:54 pregabalin [From LYRICA] Allergy Unknown Verified 10/31/23 13:54 ibuprofen AdvReac Verified 10/31/23 13:54 Exam Data for Last 24 hours Vital signs and Labs for Last 24 Hours: Temp Pulse Resp BP Pulse Ox O2 Del Method 98.2 F 94 H 24 145/67 H 64 L Room Air 11/05/23 00:10 11/05/23 00:10 11/05/23 00:10 11/05/23 00:10 11/05/23 00:10 11/05/23 00:10 Laboratory Results - last 24 hr 11/05/23 00:14: VBG pH 7.24 L, VBG pCO2 62.4 H, VBG pO2 31.6, VBG HCO3 26.3, VBG Total CO2 28.2 H, VBG O2 Saturation 54.5, VBG Base Excess -1.0, VBG Lactic Acid 1.3 11/05/23 00:24: WBC 15.1 H, RBC 3.57 L, Hgb 11.3 L, Hct 34.3 L, MCV 96.1 H, MCH 31.7 H, MCHC 33.0, RDW 15.9, Plt Count 626 H, MPV 7.7, Neut % (Auto) 80.8 H, Lymph % (Auto) 14.5, [place] % (Auto) 3.8, Eos % (Auto) 0.5, Baso % (Auto) 0.5, Neut # (Auto) 12.2 H, Lymph # (Auto) 2.2, [place] # (Auto) 0.6, Eos # (Auto) 0.1, Baso # (Auto) 0.1, Total Counted 100, Neutrophils % (Manual) 82 H, Lymphocytes % (Manual) 18, Platelet Estimate Normal, RBC Morphology Normal, Sodium 133 L, Potassium 4.4, Chloride 98, Carbon Dioxide 29, Anion Gap 10.4, BUN 20, Creatinine 1.00, Estimated Creat Clear 58, Estimated GFR 75, Est GFR ( Amer) 91, Glucose 159 H, Lactate 1.0, Calcium 8.8, Total Bilirubin 0.6, AST 43, ALT 43, Alkaline Phosphatase 95, Troponin I < 0.01, NT-Pro-B Natriuret Pep 284 H, Total Protein 7.2, Albumin 3.9, Globulin 3.3 H, Albumin/Globulin Ratio 1.2 Temp Pulse Resp BP Pulse Ox FiO2 97.7 F 70 18 99/58 L 89 L 32 02/25/22 08:00 02/25/22 08:00 02/25/22 08:00 02/25/22 08:00 02/25/22 08:00 02/25/22 02:53 Laboratory Results - last 24 hr 02/24/22 18:48: WBC 21.9 H*, RBC 4.34 L, Hgb 14.1, Hct 43.6, MCV 100.5 H, MCH 32.5 H, MCHC 32.4, RDW 13.7, Plt Count 520 H, MPV 7.7, Neut % (Auto) 91.9 H, Lymph % (Auto) 3.5 L, [place] % (Auto) 3.7, Eos % (Auto) 0.7, Baso % (Auto) 0.3, Neut # (Auto) 20.1 H, Lymph # (Auto) 0.8, [place] # (Auto) 0.8, Eos # (Auto) 0.2, Baso # (Auto) 0.1, Total Counted 100, Neutrophils % (Manual) 84 H, Band Neutrophils % 9.0 H, Lymphocytes % (Manual) 5 L, Monocytes % (Manual) 2, Platelet Estimate Slight increase, Macrocytosis 1+, ESR 36 H 02/24/22 18:48: Sodium 129 L, Potassium 4.5, Chloride 93 L, Carbon Dioxide 28, Anion Gap 12.5, BUN 21 H, Creatinine 0.80, Estimated Creat Clear 69, Estimated GFR 98, Est GFR ( Amer) 118, Glucose 133 H, Calcium 8.9, Magnesium 1.6, Troponin I 0.13 H, C-Reactive Protein 231.1 H 02/24/22 18:48: Lactate 1.1 02/24/22 18:48: Procalcitonin 0.173 02/24/22 18:48: NT-Pro-B Natriuret Pep 687 H 02/24/22 19:46: SARS-CoV-2 (PCR) Not detected, Influenza A Untype (PCR) Not detected, Influenza Type B (PCR) Not detected 02/24/22 19:57: Specimen Source Right radial, O2 % 4, ABG pH 7.35, ABG pCO2 45.8 H, ABG pO2 72.5 L, ABG HCO3 24.8, ABG Total CO2 26.2, ABG O2 Saturation 95, ABG Base Excess -0.7, Kyle Test Y 02/24/22 20:02: Ammonia 11 02/24/22 23:00: Troponin I 0.16 H 02/25/22 07:15: WBC 25.8 H*, RBC 4.44 L, Hgb 14.3, Hct 45.0, MCV 101.3 H, MCH 32.3 H, MCHC 31.9, RDW 13.6, Plt Count 522 H, MPV 8.5, Neut % (Auto) 94.5 H, Lymph % (Auto) 3.2 L, [place] % (Auto) 2.0, Eos % (Auto) 0.1, Baso % (Auto) 0.2, Neut # (Auto) 24.4 H, Lymph # (Auto) 0.8, [place] # (Auto) 0.5, Eos # (Auto) 0.0, Baso # (Auto) 0.0, Total Counted 100, Neutrophils % (Manual) 96 H, Lymphocytes % (Manual) 3 L, Monocytes % (Manual) 1 L, Platelet Estimate Slight increase, Macrocytosis 1+ 02/25/22 07:15: Sodium 130 L, Potassium 4.5, Chloride 97 L, Carbon Dioxide 27, Anion Gap 10.5, BUN 17, Creatinine 0.50 L D, Estimated Creat Clear 61, Estimated GFR 168, Est GFR ( Amer) 203 D, Glucose 148 H, Calcium 8.7, Magnesium 1.7, Triglycerides 77, Cholesterol 114 L, LDL Cholesterol Direct 47.12 L, VLDL Cholesterol 15, HDL Cholesterol 36 L, Cholesterol/HDL Ratio 3.2 I & O for Last 24 hours: Intake & Output 11/02/23 11/03/23 11/04/23 11/05/23 23:59 23:59 23:59 23:59 Weight 55.338 kg Intake & Output 02/22/22 02/23/22 02/24/22 02/25/22 11:59 11:59 11:59 11:59 Intake Total 586 / 586 Output Total 600 / 600 Balance - Weight 125 lb Constitutional Constitutional: mild distress, thin and chronically ill appearing *Routine HEENT Exam Head: Present normocephalic Eye: Present EOMI and PERRL; Absent conjunctival icterus ENT: Present mucous membranes dry *Routine Neck Exam Neck: Absent JVD *Routine Respiratory Exam Respiratory: Present prolonged expiratory phase, wheezes, normal respiratory effort and symmetric chest movement; Absent rales *Routine Cardiovascular Exam Cardiovascular: Present RRR, murmur and S4 *Routine Abdominal Exam Abdominal: Absent organomegaly *Routine Rectal Exam Rectal:: deferred *Routine Genitalia Exam Genitalia:: deferred *Routine Extremities Exam Extremities: Absent calf tenderness *Routine Skin Exam Skin: Absent erythema *Routine Neurological Exam Neurological: Present alert, oriented X3, CN II-XII intact, normal reflexes and moving all extremities Routine Psychiatric Exam Psychiatric: Present cooperative and anxious H&P: Result Imaging and Cardiology Chest x-ray: Status: image reviewed by me, Preliminary report and final report EKG: Status: image reviewed by me, Preliminary report and final report CT scan - chest: Status: image reviewed by me, Preliminary report and final report Assessment and Plan *Assessment and plan (1) Sepsis: Status: Acute Qualifiers: Acute respiratory failure type: with hypoxia Sepsis acute organ dysfunction status: with acute organ dysfunction Sepsis type: sepsis due to unspecified organism Severe sepsis acute organ dysfunction type: acute respiratory failure Severe sepsis shock status: without septic shock Qualified Code(s): A41.9 - Sepsis, unspecified organism; R65.20 - Severe sepsis without septic shock; J96.01 - Acute respiratory failure with hypoxia Category: Medical Code(s): A41.9 - Sepsis, unspecified organism (2) Chronic respiratory failure: Status: Acute Qualifiers: Respiratory failure complication: unspecified whether with hypoxia or hypercapnia Qualified Code(s): J96.10 - Chronic respiratory failure, unspecified whether with hypoxia or hypercapnia Category: Medical Code(s): J96.10 - Chronic respiratory failure, unspecified whether with hypoxia or hypercapnia (3) CAP (community acquired pneumonia): Status: Acute Qualifiers: Laterality: right Lung location: lower lobe of lung Qualified Code(s): J18.9 - Pneumonia, unspecified organism Category: Medical Code(s): J18.9 - Pneumonia, unspecified organism (4) HLD (hyperlipidemia): Problem Comment: Lipid panel done April 2023 reveals a triglyceride 114 total cholesterol 147 LDL of 88 and HDL 39. This is not a bad panel at all. Patient is taking atorvastatin to 10 mg tablets per day at 20 mg total. Status: Chronic Qualifiers: Hyperlipidemia type: mixed hyperlipidemia Qualified Code(s): E78.2 - Mixed hyperlipidemia Category: Medical Code(s): E78.5 - Hyperlipidemia, unspecified (5) HTN (hypertension): Problem Comment: Blood pressures have been routinely less than 130/80 on a regular basis. Today was 120/68. Will continue with the sacubitril/valsartan at 24/26 mg twice a day. Additionally he is taking carvedilol. Status: Chronic Qualifiers: Hypertension type: essential hypertension Qualified Code(s): I10 - Essential (primary) hypertension Category: Medical Code(s): I10 - Essential (primary) hypertension (6) Anxiety: Problem Comment: This patient states his anxiety is well-controlled on the duloxetine. Stopped his benzodiazepines completely. Status: Acute Category: Medical Code(s): F41.9 - Anxiety disorder, unspecified (7) Chronic pain: Problem Comment: Please see above. Status: Acute Qualifiers: Chronic pain type: other chronic pain Qualified Code(s): G89.29 - Other chronic pain Category: Medical Code(s): G89.29 - Other chronic pain Plan 63-year-old male with PMHx of chronic respiratory failure on 4 L nasal cannula at home, COPD, hypertension, cardiomyopathy, hyperlipidemia coming to the hospital by daughter, who reported concerns of confusion and shortness of breath for the last 4 days. Patient arrived on visual respiratory distress. Initially placed on vapotherm. improved after neb. currently on 4L. Met sepsis criteria. initiated on fluid bolus and broad antibiotic, CT chest shows multilobar PNA, low concern for PEs. Discussed with ED. Agreed for admission. Plan: sepsis secondary to multilobar CAP Acute on chronic respiratory failure with hypoxia COPD exacerbation - Hemodinamically stable. Cont Gentle IV maintenance after bolus. may discontinue when patient improve oral intake -Continue nasal oxygen supplementation to maintain O2 saturation goal of 90% and above -Continue antibiotics vanco and zoxyn. May deescalate when culture available. or clinically improving -BC and sputum pending -DuoNebs every 6 hours scheduled -decadron 6mg daily -resume home respimat - resume home nebulizer - repeat CBC/CMP daily HTN. HLD. ANXiety chronic pain conditions reviewed and stables, on aspirin, statin duoloxetine, gabapentin Oxycodone 15mg QID Lovenox for DVT ppx. On protonix Full code Rounded on patient after nurse practitioner. Personally examined and interviewed patient. Agree with exam findings and care plan as documented.Showing some improvement by morning rounds. Will obtain comprehensive respiratory panel. Chest imaging reviewed, does show patchy bilateral airspace disease. Continue Zosyn every 8 hours. Sputum culture pending. Goal sats greater than 90%, currently on 2 to 3 L.
--- NOTE | 2023-11-05 02:13 | PC.NURSE ---
0200 RECEIVED PHONE REPORT FROM RM RN/ED NURSE. PATIENT IS A 63 YO MALE WITH SEPSIS/PNEUMONIA/ HYPOXIA. WILL TRANSFER PER STRETCHER.
--- NOTE | 2023-11-05 02:20 | PC.NURSE ---
ARRIVED AT 0220 VIA STRETCHER.
[2023-11-05] MEDS: 0.9 % SODIUM CHLORIDE 1000ML 1,000 ML 50 ML IV ×2 (02:28→23:02)
[2023-11-05 03:41] LABS: Troponin I < 0.01 ng/ml (0.00-0.034)
--- NOTE | 2023-11-05 04:42 | PC.NURSE ---
PATIENT IS ORIENTED X 4 BUT IS LETHARGIC. SATS 96% ON 4 LNC. HOB UP 40 DEGREES. LUNGS VERY DIMINISHED WITH FAINT EXP WHEEZES AT THIS TIME. DRY COUGH. RESPS TACHYPNEIC. HR REGULAR. NO C/O PAIN. BED ALARM IN USE. PATIENT VERY UNSTEADY. UNABLE TO STAND ALONE.
[2023-11-05 06:09] LABS: Microscopic, Urine URINE MICROSCOPIC (MICROSCOPIC)
[2023-11-05 06:38] LABS: Appearance,Urine CLEAR (Clear); Bilirubin,Urine Negative (Negative); Blood, Urine Negative (Negative); Color,Urine YELLOW (Yellow); Glucose,Urine (UA) Negative (Negative); Ketones,Urine Negative (Negative); Leukocyte Esterase,Urine Negative (Negative); Nitrate,Urine Negative (Negative); PH,Urine 5.5 (5.0-8.5); Protein,Urine TRACE (Negative); Urobilinogen,Urine 0.2 EU/dl (0.2)
[2023-11-05] MEDS: IPRATROPIUM/ALBUTEROL 3 ML NEB IH ×4 (06:57→23:56)
[2023-11-05 07:25] LABS: Basophils % 0.2 % (0.1-2.0); Eosinophils % 0.2 % (0.1-12.0); Lymphocytes # 1.1 K/mm3 (0.7-4.5); Monocytes # 0.4 K/mm3 (0.1-1.0)
[2023-11-05 07:37] LABS: Hematocrit 32.6 % (42.0-52.0); Lymphocytes % 10.2 % (10-50); Mean Corpuscular HGB Conc 30.8 g/dL (31.8-35.4); Mean Corpuscular Hemoglobin 29.6 pg (27.0-31.2); Mean Corpuscular Volume 95.9 fl (80-94); Mean Platelet Volume 8.2 fl (7.4-10.4); Monocytes % 3.4 % (1.7-9.3); Neutrophils # 9.5 K/mm3 (1.8-7.8); Neutrophils % 85.9 % (37.0-80.0); Platelet Count 549 K/mm3 (142-424); Red Cell Distribution Width 15.7 % (11.5-17.5)
[2023-11-05 07:51] LABS: WBC,Urine Occasional #/hpf (0-3)
[2023-11-05 07:52] LABS: Bacteria,Urine Trace /lpf
[2023-11-05 07:53] LABS: Alanine Aminotransferase 42 U/L (12-78); Albumin/Globulin Ratio 1.1 (1.1-1.8); Alkaline Phosphatase 103 U/L (38-126); Anion Gap 11.4 mEq/L (5-15); Aspartate Amino Transferase 49 U/L (17-59); Bilirubin,Total 0.7 mg/dl (0.2-1.3); Blood Urea Nitrogen 16 mg/dl (9-20); Calcium 8.4 mg/dl (8.4-10.2); Carbon Dioxide 27 mmol/L (22.0-30.0); Chloride 99 mmol/L (98-107); Creatinine Clearance Estimated 58 mL/min (50-200); Estimated Glomerular Filt Rate 135 ml/min (>60); GFR (African American) 164 ML/MIN (>60); Globulin 2.7 g/dL (1.3-3.2); Glucose 112 mg/dl (74-100); Magnesium 1.8 mg/dl (1.6-2.3); Potassium 4.4 mmoL/L (3.5-5.1); Sodium 133 mmol/L (136-145); Total Protein,Serum 5.7 g/dl (6.3-8.2); Troponin I < 0.01 ng/ml (0.00-0.034)
[2023-11-05] MEDS: ENOXAPARIN 40MG/0.4ML SYRINGE 40 MG SQ (10:02)
[2023-11-05] MEDS: GABAPENTIN 600MG TABLET 1200 MG PO ×3 (10:02→21:16)
[2023-11-05] MEDS: DEXAMETHASONE 4MG/ML 1ML VIAL 6 MG IV (10:03)
[2023-11-05] MEDS: OXYCODONE 5MG IMMEDIATE RELEASE TABLET 15 MG PO ×3 (10:03→21:18)
[2023-11-05] MEDS: CARVEDILOL 3.125MG TABLET 3.125 MG PO ×2 (10:03→21:16)
[2023-11-05] MEDS: ASPIRIN EC 81MG TABLET 81 MG PO (10:03)
[2023-11-05] MEDS: DOCUSATE SODIUM 100 MG CAPSULE PO (10:03)
[2023-11-05] MEDS: DULOXETINE 30MG CAPSULE.DR 60 MG PO (10:10)
[2023-11-05 13:24] LABS: Adenovirus,PCR Not Detected (NotDetected); Bordetella Pertussis Not Detected (NotDetected); Chlamydophila Pneumoniae, PCR Not Detected (NotDetected); Coronavirus 19, PCR Not Detected (NotDetected); Coronavirus 229E Not Detected (NotDetected); Coronavirus NL63 Not Detected (NotDetected); Coronavirus OC43 Not Detected (NotDetected); Coronovirus HKU1,PCR Not Detected (NotDetected); Human Metapneumovirus Not Detected (NotDetected); Influenza A, PCR Not Detected (NotDetected); Influenza AH1, 2009 Not Detected (NotDetected); Influenza AH1, PCR Not Detected (NotDetected); Influenza AH3,PCR Not Detected (NotDetected); Influenza B, PCR Not Detected (NotDetected); Mycoplasma Pneumoniae, PCR Not Detected (NotDetected); Parainfluenza 1, PCR Not Detected (NotDetected); Parainfluenza 2, PCR Not Detected (NotDetected); Parainfluenza 3, PCR Not Detected (NotDetected); Parainfluenza 4, PCR Not Detected (NotDetected); Respiratory Syncytial Virus Not Detected (NotDetected); Rhinovirus/Enterovirus Not Detected (NotDetected)
--- NOTE | 2023-11-05 15:37 | PC.NURSE ---
Aox 4, up with assistance times one, bed alarm on, call light in reach, 02-4L NC, 20G R AC WITH NS @ 50 ML/HR, 20G R FA SL.
[2023-11-05] MEDS: PANTOPRAZOLE 40MG TABLET 40 MG PO (21:16)
[2023-11-05] MEDS: ATORVASTATIN 20MG TABLET 20 MG PO (21:16)
[2023-11-05] MEDS: OLANZapine 5 MG ODT TABLET 7.5 MG SL (21:18)
[2023-11-06] VITALS (9 sets, daily range): BP systolic 95–132; BP diastolic 45–63; PULSE 73–99; RESP 18–20; TEMP 36.7–36.8; O2SAT 91–99; BMI 18.8
[2023-11-06] MEDS: 0.9 % SODIUM CHLORIDE 1000ML 1,000 ML 50 ML IV (02:38)
[2023-11-06] MEDS: PIPERACILLIN/TAZO 4.5 GM in 0.9 % SODIUM CHLORIDE 100 ML IV ×3 (05:21→21:26)
[2023-11-06] MEDS: IPRATROPIUM/ALBUTEROL 3 ML NEB IH ×3 (06:28→18:41)
[2023-11-06 06:57] LABS: Basophils % 0.1 % (0.1-2.0); Hematocrit 30.3 % (42.0-52.0); Hemoglobin 9.5 g/dL (14.1-18.0); Lymphocytes # 0.9 K/mm3 (0.7-4.5); Lymphocytes % 9.1 % (10-50); Mean Corpuscular HGB Conc 31.4 g/dL (31.8-35.4); Mean Corpuscular Hemoglobin 30.2 pg (27.0-31.2); Mean Corpuscular Volume 96.2 fl (80-94); Mean Platelet Volume 8.1 fl (7.4-10.4); Monocytes # 0.5 K/mm3 (0.1-1.0); Monocytes % 5.2 % (1.7-9.3); Neutrophils # 8.2 K/mm3 (1.8-7.8); Neutrophils % 85.6 % (37.0-80.0); Platelet Count 561 K/mm3 (142-424); Red Blood Count 3.15 M/mm3 (4.60-6.20); Red Cell Distribution Width 15.6 % (11.5-17.5); White Blood Count 9.5 K/mm3 (4.8-10.8)
[2023-11-06 07:07] LABS: MANUAL DIFFERENTIAL MANUAL DIFFERENTIAL (MANUAL DIFF)
[2023-11-06 07:12] LABS: Alanine Aminotransferase 46 U/L (12-78); Alkaline Phosphatase 92 U/L (38-126); Anion Gap 9.2 mEq/L (5-15); Aspartate Amino Transferase 36 U/L (17-59); Bilirubin,Total 0.2 mg/dl (0.2-1.3); Blood Urea Nitrogen 20 mg/dl (9-20); Calcium 8.4 mg/dl (8.4-10.2); Carbon Dioxide 31 mmol/L (22.0-30.0); Chloride 101 mmol/L (98-107); Creatinine Clearance Estimated 62 mL/min (50-200); Estimated Glomerular Filt Rate 135 ml/min (>60); GFR (African American) 164 ML/MIN (>60); Globulin 2.9 g/dL (1.3-3.2); Glucose 187 mg/dl (74-100); Magnesium 2.1 mg/dl (1.6-2.3); Potassium 4.2 mmoL/L (3.5-5.1); Sodium 137 mmol/L (136-145); Total Protein,Serum 5.9 g/dl (6.3-8.2)
[2023-11-06] MEDS: GABAPENTIN 600MG TABLET 1200 MG PO ×3 (08:40→21:24)
[2023-11-06] MEDS: DOCUSATE SODIUM 100 MG CAPSULE PO (08:40)
[2023-11-06] MEDS: DULOXETINE 30MG CAPSULE.DR 60 MG PO (08:41)
[2023-11-06] MEDS: ASPIRIN EC 81MG TABLET 81 MG PO (08:41)
[2023-11-06] MEDS: CARVEDILOL 3.125MG TABLET 3.125 MG PO ×2 (08:41→21:24)
[2023-11-06] MEDS: ENOXAPARIN 40MG/0.4ML SYRINGE 40 MG SQ (08:41)
[2023-11-06] MEDS: DEXAMETHASONE 4MG/ML 1ML VIAL 6 MG IV (08:42)
[2023-11-06] MEDS: OXYCODONE 5MG IMMEDIATE RELEASE TABLET 15 MG PO ×4 (08:49→21:25)
[2023-11-06 09:43] LABS: Lymphocytes % 8 % (10-50); Monocytes % 2 % (2-9); Neutrophils % 90 % (42-76); Platelet Estimate Moderate Increase; RBC Morphology Normal; Total Cells Counted 100
--- NOTE | 2023-11-06 15:29 | EXP.ACUTE.PN ---
Subjective *Date: 11/06/23 *Time: 15:29 Interval history: Patient went back up to 4 L overnight. Doing better this morning, weaned to 3 L. Will wean as tolerated. Cough more productive, afebrile. Clinically feels better. White cell count improving. Denies any nausea or vomiting. Still awaiting cultures. Ambulating with minimal assistance. Was dizzy overnight. Medical Exam Vital signs and Labs for Last 24 Hours: Vital Signs Temp Pulse Pulse Resp BP Pulse Ox O2 Del Method 11/06/23 15:17 98.3 F 83 18 132/62 92 L Nasal Cannula 11/06/23 15:00 Nasal Cannula 11/06/23 13:00 Nasal Cannula 11/06/23 11:51 98.1 F 82 18 107/62 L 92 L Nasal Cannula 11/06/23 11:00 Nasal Cannula 11/06/23 10:35 88 11/06/23 10:35 78 11/06/23 09:00 Nasal Cannula 11/06/23 08:50 Nasal Cannula 11/06/23 08:00 98.0 F 86 18 115/59 L 94 L Nasal Cannula 11/06/23 07:00 Nasal Cannula 11/06/23 06:29 99 H 11/06/23 06:29 99 H 11/06/23 06:29 97 Nasal Cannula 11/06/23 04:00 98.1 F 73 18 95/50 L 99 Nasal Cannula 11/06/23 00:00 98.3 F 91 H 18 96/45 L 91 L Nasal Cannula 11/05/23 23:56 88 11/05/23 23:56 88 11/05/23 20:00 98.5 F 93 H 18 127/62 91 L Nasal Cannula 11/05/23 20:00 Nasal Cannula 11/05/23 18:25 75 11/05/23 18:25 75 11/05/23 18:25 Nasal Cannula 11/05/23 17:34 Nasal Cannula 11/05/23 16:00 99.5 F 70 19 102/54 L 94 L Nasal Cannula O2 Flow Rate 11/06/23 15:17 2 11/06/23 15:00 3 11/06/23 13:00 3 11/06/23 11:51 3 11/06/23 11:00 3 11/06/23 10:35 11/06/23 10:35 11/06/23 09:00 3 11/06/23 08:50 3 11/06/23 08:00 4 11/06/23 07:00 11/06/23 06:29 11/06/23 06:29 11/06/23 06:29 4 11/06/23 04:00 11/06/23 00:00 11/05/23 23:56 11/05/23 23:56 11/05/23 20:00 2 11/05/23 20:00 2 11/05/23 18:25 11/05/23 18:25 11/05/23 18:25 4 11/05/23 17:34 4 11/05/23 16:00 Intake and Output 11/05/23 11/06/23 11/06/23 23:59 07:59 15:59 Intake Total 170 / 1612 840 / 840 Output Total 400 / 400 0 / 400 Balance 170 / 612 -400 / 440 840 / 440 Intake: Intake, Oral Amount 170 / 1310 840 / 840 Output: Output, Urine Amount 400 / 400 0 / 400 Other: Number of Unmeasured Voids 1 Weight 59.602 kg Patient Weight 11/06/23 23:59 Weight 59.602 kg Laboratory Results - last 24 hr 11/05/23 13:13: Chlamy pneumoniae PCR Not detected, Adenovirus (PCR) Not detected, B. pertussis DNA (PCR) Not detected, Coronavirus OC43 (PCR) Not detected, Coronavirus HKU1 (PCR) Not detected, Coronavirus 229E (PCR) Not detected, SARS-CoV-2 (PCR) Not detected, Coronavirus NL63 (PCR) Not detected, Human Metapneumovir PCR Not detected, Influenza A (H1) PCR Not detected, Influ A (H1N1/09) PCR Not detected, Influenza A (H3) PCR Not detected, Influenza Type A (PCR) Not detected, Influenza Type B (PCR) Not detected, M. pneumoniae (PCR) Not detected, Parainfluenza 1 (PCR) Not detected, Parainfluenza 2 (PCR) Not detected, Parainfluenza 3 (PCR) Not detected, Parainfluenza 4 (PCR) Not detected, RSV (PCR) Not detected, Entero/Rhino (PCR) Not detected 11/06/23 06:05: WBC 9.5, RBC 3.15 L, Hgb 9.5 L, Hct 30.3 L, MCV 96.2 H, MCH 30.2, MCHC 31.4 L, RDW 15.6, Plt Count 561 H, MPV 8.1, Neut % (Auto) 85.6 H, Lymph % (Auto) 9.1 L, [place] % (Auto) 5.2, Eos % (Auto) 0.0 L, Baso % (Auto) 0.1, Neut # (Auto) 8.2 H, Lymph # (Auto) 0.9, [place] # (Auto) 0.5, Eos # (Auto) 0.0, Baso # (Auto) 0.0, Total Counted 100, Neutrophils % (Manual) 90 H, Lymphocytes % (Manual) 8 L, Monocytes % (Manual) 2, Platelet Estimate Moderate increase, RBC Morphology Normal, Sodium 137, Potassium 4.2, Chloride 101, Carbon Dioxide 31 H, Anion Gap 9.2, BUN 20, Creatinine 0.60 L, Estimated Creat Clear 62, Estimated GFR 135, Est GFR ( Amer) 164, Glucose 187 H D, Calcium 8.4, Magnesium 2.1 D, Total Bilirubin 0.2, AST 36 D, ALT 46, Alkaline Phosphatase 92, Total Protein 5.9 L, Albumin 3.0 L, Globulin 2.9, Albumin/Globulin Ratio 1.0 L I & O for Labs for Last 24 Hours: Intake & Output 11/03/23 11/04/23 11/05/23 11/06/23 23:59 23:59 23:59 23:59 Intake Total 1612 / 1612 840 / 840 Output Total 1000 / 1000 400 / 400 Balance 612 / 612 440 / 440 Weight 55.565 kg 59.602 kg Microbiology Reports for the Last 24 Hours: Microbiology 11/05/23 00:24 Sputum - Expectorated Sputum Gram Stain - Final 11/05/23 00:24 Sputum - Expectorated Sputum Sputum Culture - Preliminary Constitutional: Present no acute distress, thin, chronically ill appearing, disheveled and cooperative Head: Present atraumatic and normocephalic ENT: Present normal exam Neck: Present normal inspection Respiratory: Present prolonged expiratory phase, rhonchi, wheezes and normal respiratory effort; Absent crackles Cardiac: Present Reg Rate and Rhythm GI: Present soft; Absent distention Skin: Present intact Neuro: Present alert, awake, oriented x 3 and moves all extremities Assessment and Plan *Assessment and plan (1) CAP (community acquired pneumonia): Status: Acute Qualifiers: Laterality: right Lung location: lower lobe of lung Qualified Code(s): J18.9 - Pneumonia, unspecified organism Category: Medical Code(s): J18.9 - Pneumonia, unspecified organism (2) Sepsis: Status: Acute Qualifiers: Acute respiratory failure type: with hypoxia Sepsis acute organ dysfunction status: with acute organ dysfunction Sepsis type: sepsis due to unspecified organism Severe sepsis acute organ dysfunction type: acute respiratory failure Severe sepsis shock status: without septic shock Qualified Code(s): A41.9 - Sepsis, unspecified organism; R65.20 - Severe sepsis without septic shock; J96.01 - Acute respiratory failure with hypoxia Category: Medical Code(s): A41.9 - Sepsis, unspecified organism (3) Chronic respiratory failure: Status: Acute Qualifiers: Respiratory failure complication: unspecified whether with hypoxia or hypercapnia Qualified Code(s): J96.10 - Chronic respiratory failure, unspecified whether with hypoxia or hypercapnia Category: Medical Code(s): J96.10 - Chronic respiratory failure, unspecified whether with hypoxia or hypercapnia (4) HLD (hyperlipidemia): Problem Comment: Lipid panel done April 2023 reveals a triglyceride 114 total cholesterol 147 LDL of 88 and HDL 39. This is not a bad panel at all. Patient is taking atorvastatin to 10 mg tablets per day at 20 mg total. Status: Chronic Qualifiers: Hyperlipidemia type: mixed hyperlipidemia Qualified Code(s): E78.2 - Mixed hyperlipidemia Category: Medical Code(s): E78.5 - Hyperlipidemia, unspecified (5) HTN (hypertension): Problem Comment: Blood pressures have been routinely less than 130/80 on a regular basis. Today was 120/68. Will continue with the sacubitril/valsartan at 24/26 mg twice a day. Additionally he is taking carvedilol. Status: Chronic Qualifiers: Hypertension type: essential hypertension Qualified Code(s): I10 - Essential (primary) hypertension Category: Medical Code(s): I10 - Essential (primary) hypertension (6) Anxiety: Problem Comment: This patient states his anxiety is well-controlled on the duloxetine. Stopped his benzodiazepines completely. Status: Acute Category: Medical Code(s): F41.9 - Anxiety disorder, unspecified (7) Chronic pain: Problem Comment: Please see above. Status: Acute Qualifiers: Chronic pain type: other chronic pain Qualified Code(s): G89.29 - Other chronic pain Category: Medical Code(s): G89.29 - Other chronic pain Plan 63-year-old male with PMHx of chronic respiratory failure on 4 L nasal cannula at home, COPD, hypertension, cardiomyopathy, hyperlipidemia coming to the hospital by daughter, who reported concerns of confusion and shortness of breath for the last 4 days. Patient arrived on visual respiratory distress. Initially placed on vapotherm. improved after neb. currently on 4L. Met sepsis criteria. initiated on fluid bolus and broad antibiotic, CT chest shows multilobar PNA, low concern for PEs. Discussed with ED. Agreed for admission. Showing clinical improvement. Weaned to nasal cannula oxygen. On 3 L this morning. Continues to necessitate inpatient management. Possible discharge in the next 1 to 2 days. Problems addressed as follows: sepsis secondary to multilobar CAP Acute on chronic respiratory failure with hypoxia COPD exacerbation - Responding to antibiotics. Continue Zosyn 4.5 g IV every 8 hours. -Continue DuoNebs every 6 hours scheduled - supplemental O2 as needed, goal sats >90%, on 3L. - BC and sputum pending -decadron 6mg daily -resume home respimat -CBC, CMP, magnesium ordered for the morning. -White cell count normalized at 9.5. HTN. HLD. ANXiety chronic pain conditions reviewed and stables, on aspirin, statin duoloxetine, gabapentin Oxycodone 15mg QID Lovenox for DVT ppx On protonix Regular diet Full code
--- NOTE | 2023-11-06 18:37 | PC.NURSE ---
Pt has done well this shift. Scheduled pain meds given. Pt has worn 3L NC PRN this shift. ambulating as tolerated in room. No needs stated.
[2023-11-06] MEDS: ATORVASTATIN 20MG TABLET 20 MG PO (21:24)
[2023-11-06] MEDS: OLANZapine 5 MG ODT TABLET 7.5 MG SL (21:26)
[2023-11-06] MEDS: PANTOPRAZOLE 40MG TABLET 40 MG PO (21:26)
[2023-11-07] VITALS: BP 117/69; PULSE 77; RESP 18; TEMP 36.4; O2SAT 98
[2023-11-07] MEDS: IPRATROPIUM/ALBUTEROL 3 ML NEB IH ×2 (00:52→05:53)
[2023-11-07 04:00] VITALS: BP 104/52; PULSE 71; RESP 20; TEMP 36.4; O2SAT 94; BMI 19.8
[2023-11-07] MEDS: PIPERACILLIN/TAZO 4.5 GM in 0.9 % SODIUM CHLORIDE 100 ML IV (05:48)
[2023-11-07 05:53] VITALS: PULSE 85; O2SAT 92
[2023-11-07 05:56] LABS: Basophils % 0.3 % (0.1-2.0); Eosinophils # 0.1 K/mm3 (0.0-0.4); Eosinophils % 0.5 % (0.1-12.0); Hematocrit 34.3 % (42.0-52.0); Lymphocytes # 1.3 K/mm3 (0.7-4.5); Lymphocytes % 9.6 % (10-50); Mean Corpuscular HGB Conc 31.7 g/dL (31.8-35.4); Mean Corpuscular Hemoglobin 30.4 pg (27.0-31.2); Mean Corpuscular Volume 95.7 fl (80-94); Mean Platelet Volume 7.4 fl (7.4-10.4); Monocytes # 0.7 K/mm3 (0.1-1.0); Monocytes % 5.1 % (1.7-9.3); Neutrophils # 11.6 K/mm3 (1.8-7.8); Neutrophils % 84.5 % (37.0-80.0); Platelet Count 684 K/mm3 (142-424); Red Blood Count 3.58 M/mm3 (4.60-6.20); Red Cell Distribution Width 15.6 % (11.5-17.5); White Blood Count 13.7 K/mm3 (4.8-10.8)
[2023-11-07 06:02] LABS: Hemoglobin 10.9 g/dL (14.1-18.0)
[2023-11-07 06:04] LABS: Alanine Aminotransferase 53 U/L (12-78); Albumin Level 3.3 g/dl (3.5-5.0); Alkaline Phosphatase 94 U/L (38-126); Anion Gap 9.5 mEq/L (5-15); Aspartate Amino Transferase 40 U/L (17-59); Bilirubin,Total 0.3 mg/dl (0.2-1.3); Blood Urea Nitrogen 20 mg/dl (9-20); Calcium 8.9 mg/dl (8.4-10.2); Carbon Dioxide 33 mmol/L (22.0-30.0); Chloride 101 mmol/L (98-107); Creatinine Clearance Estimated 62 mL/min (50-200); Estimated Glomerular Filt Rate 167 ml/min (>60); GFR (African American) 202 ML/MIN (>60); Globulin 3.2 g/dL (1.3-3.2); Glucose 169 mg/dl (74-100); Potassium 4.5 mmoL/L (3.5-5.1); Sodium 139 mmol/L (136-145); Total Protein,Serum 6.5 g/dl (6.3-8.2)
[2023-11-07 07:41] VITALS: BP 121/66; PULSE 82; RESP 18; TEMP 36.8; O2SAT 95
--- NOTE | 2023-11-07 07:59 | P.DS_ITS ---
General Admission date:: 11/05/23 Discharge date: 11/07/23 HPI HPI HPI: This is a 63-year-old male with PMHx of chronic respiratory failure on 4 L nasal cannula at home, COPD, hypertension, cardiomyopathy, hyperlipidemia coming to the hospital by daughter, who reported concerns of confusion and shortness of breath for the last 4 days. Daughter reports patient has been nodding off more easily and has been confused. Reportedly his oxygen saturations at home and he has been in the 70s. He arrived with oxygen saturation 64% initially. Patient complains of right-sided chest pain. they also concerned for fever. Patient denies vomiting, he had 1 episode of recent diarrhea. admitted. Hospital Course Hospital Course Hospital Course: 63-year-old male with PMHx of chronic respiratory failure on 4 L nasal cannula at home, COPD, hypertension, cardiomyopathy, hyperlipidemia coming to the hospital by daughter, who reported concerns of confusion and shortness of breath for the last 4 days. Patient arrived on visual respiratory distress. Initially placed on vapotherm. improved after neb. currently on 4L. Met sepsis criteria. initiated on fluid bolus and broad antibiotic, CT chest shows multilobar PNA, low concern for PEs. Discussed with ED. Agreed for admission. Patient showed improvement with IV antibiotics. Oxygen weaned to 4 L rapidly after admission. Able to wean to 3 L by day of discharge. Has oxygen at home. Stable to discharge home to complete antibiotic course. Recommend follow-up with PCP and pulmonology in the coming weeks for reevaluation. Problems addressed during hospitalization as follows: sepsis secondary to multilobar CAP Acute on chronic respiratory failure with hypoxia COPD exacerbation -Initiated on empiric antibiotics with Zosyn. Previously discharged on Levaquin. Sputum culture obtained, growing gram-positive cocci on day of discharge. Previous cultures negative. Given improvement in oxygenation, afebrile status, will transition to oral Levaquin to complete 7 days total of antibiotics along with doxycycline to complete 7 days of doxycycline for gram- positive infection. Continue to follow cultures after discharge. Continue DuoNebs at home. Continue home inhaler. Will complete 5 days total of steroids with prednisone orally. Recommend follow-up in the coming weeks with pulmonology and PCP. HTN. HLD. ANXiety chronic pain Continued home regimens for chronic conditions. Continue aspirin, statin duoloxetine, gabapentin, and Oxycodone 15mg QID Exam Data for Last 24 hours Vital signs and Labs for Last 24 Hours: Temp Pulse Resp BP Pulse Ox O2 Del Method O2 Flow Rate 98.2 F 82 18 121/66 95 Nasal Cannula 3 11/07/23 07:41 11/07/23 07:41 11/07/23 07:41 11/07/23 07:41 11/07/23 07:41 11/07/23 07:41 11/07/23 07:41 Laboratory Results - last 24 hr 11/06/23 06:05: Total Counted 100, Neutrophils % (Manual) 90 H, Lymphocytes % (Manual) 8 L, Monocytes % (Manual) 2, Platelet Estimate Moderate increase, RBC Morphology Normal 11/07/23 05:46: WBC 13.7 H D, RBC 3.58 L, Hgb 10.9 L D, Hct 34.3 L, MCV 95.7 H, MCH 30.4, MCHC 31.7 L, RDW 15.6, Plt Count 684 H, MPV 7.4, Neut % (Auto) 84.5 H, Lymph % (Auto) 9.6 L, [place] % (Auto) 5.1, Eos % (Auto) 0.5, Baso % (Auto) 0.3, Neut # (Auto) 11.6 H, Lymph # (Auto) 1.3, [place] # (Auto) 0.7, Eos # (Auto) 0.1, Baso # (Auto) 0.0, Sodium 139, Potassium 4.5, Chloride 101, Carbon Dioxide 33 H, Anion Gap 9.5, BUN 20, Creatinine 0.50 L, Estimated Creat Clear 62, Estimated GFR 167, Est GFR ( Amer) 202 D, Glucose 169 H, Calcium 8.9, Magnesium 2.0, Total Bilirubin 0.3, AST 40, ALT 53, Alkaline Phosphatase 94, Total Protein 6.5, Albumin 3.3 L, Globulin 3.2, Albumin/Globulin Ratio 1.0 L I & O for Last 24 hours: Intake & Output 11/04/23 11/05/23 11/06/23 11/07/23 23:59 23:59 23:59 23:59 Intake Total 1612 / 1612 840 / 840 720 / 720 Output Total 1000 / 1000 400 / 400 0 / 0 Balance 612 / 612 440 / 440 720 / 720 Weight 55.565 kg 59.602 kg 62.737 kg Microbiology Reports for the Last 24 Hours: Microbiology 11/05/23 00:24 Sputum - Expectorated Sputum Gram Stain - Final 11/05/23 00:24 Sputum - Expectorated Sputum Sputum Culture - Preliminary Constitutional Constitutional: no acute distress, cachectic, chronically ill appearing and cooperative *Routine HEENT Exam Head: Present normocephalic Eye: Present EOMI and PERRL ENT: Present mucous membranes moist *Routine Neck Exam Neck: Present supple; Absent lymphadenopathy *Routine Respiratory Exam Respiratory: Present prolonged expiratory phase, rhonchi, wheezes and diminished air movement; Absent crackles *Routine Cardiovascular Exam Cardiovascular: Present RRR *Routine Abdominal Exam Abdominal: Present soft and normoactive bowel sounds; Absent tenderness *Routine Rectal Exam Patient deferred: visual exam *Routine Exam Patient deferred: penile exam *Routine Extremities Exam Extremities: Absent cyanosis, clubbing or edema *Routine Skin Exam Skin: Present warm; Absent rash Comments: Numerous tattoos on hands and face *Routine Neurological Exam Neurological: Present alert, oriented X3 and moving all extremities; Absent altered mental status Results Data Completed and Pending Labs on day of discharge: Labs from last 24 hours 11/07/23 11/06/23 05:46 06:05 WBC 13.7 H D RBC 3.58 L Hgb 10.9 L D Hct 34.3 L MCV 95.7 H MCH 30.4 MCHC 31.7 L RDW 15.6 Plt Count 684 H MPV 7.4 Neut % (Auto) 84.5 H Lymph % (Auto) 9.6 L [place] % (Auto) 5.1 Eos % (Auto) 0.5 Baso % (Auto) 0.3 Neut # (Auto) 11.6 H Lymph # (Auto) 1.3 [place] # (Auto) 0.7 Eos # (Auto) 0.1 Baso # (Auto) 0.0 Total Counted 100 Neutrophils % (Manual) 90 H Lymphocytes % (Manual) 8 L Monocytes % (Manual) 2 Platelet Estimate Moderate increase RBC Morphology Normal Sodium 139 Potassium 4.5 Chloride 101 Carbon Dioxide 33 H Anion Gap 9.5 BUN 20 Creatinine 0.50 L Estimated Creat Clear 62 Estimated GFR 167 Est GFR ( Amer) 202 D Glucose 169 H Calcium 8.9 Magnesium 2.0 Total Bilirubin 0.3 AST 40 ALT 53 Alkaline Phosphatase 94 Total Protein 6.5 Albumin 3.3 L Globulin 3.2 Albumin/Globulin Ratio 1.0 L Preliminary micro results at discharge 11/05/23 00:24 Sputum Culture - Preliminary Sputum - Expectorated Sputum DS: Diagnosis Discharge Diagnosis (1) CAP (community acquired pneumonia): Status: Acute Code(s): J18.9 - Pneumonia, unspecified organism Qualifiers: Laterality: right Lung location: lower lobe of lung Qualified Code(s): J18.9 - Pneumonia, unspecified organism (2) Sepsis: Status: Acute Code(s): A41.9 - Sepsis, unspecified organism Qualifiers: Acute respiratory failure type: with hypoxia Sepsis acute organ dysfunction status: with acute organ dysfunction Sepsis type: sepsis due to unspecified organism Severe sepsis acute organ dysfunction type: acute respiratory failure Severe sepsis shock status: without septic shock Qualified Code(s): A41.9 - Sepsis, unspecified organism; R65.20 - Severe sepsis without septic shock; J96.01 - Acute respiratory failure with hypoxia (3) Chronic respiratory failure: Status: Acute Code(s): J96.10 - Chronic respiratory failure, unspecified whether with hypoxia or hypercapnia Qualifiers: Respiratory failure complication: unspecified whether with hypoxia or hypercapnia Qualified Code(s): J96.10 - Chronic respiratory failure, unspecified whether with hypoxia or hypercapnia (4) HLD (hyperlipidemia): Status: Chronic Code(s): E78.5 - Hyperlipidemia, unspecified Qualifiers: Hyperlipidemia type: mixed hyperlipidemia Qualified Code(s): E78.2 - Mixed hyperlipidemia Problem details: Lipid panel done April 2023 reveals a triglyceride 114 total cholesterol 147 LDL of 88 and HDL 39. This is not a bad panel at all. Patient is taking atorvastatin to 10 mg tablets per day at 20 mg total. (5) HTN (hypertension): Status: Chronic Code(s): I10 - Essential (primary) hypertension Qualifiers: Hypertension type: essential hypertension Qualified Code(s): I10 - Essential (primary) hypertension Problem details: Blood pressures have been routinely less than 130/80 on a regular basis. Today was 120/68. Will continue with the sacubitril/valsartan at 24/26 mg twice a day. Additionally he is taking carvedilol. (6) Anxiety: Status: Acute Code(s): F41.9 - Anxiety disorder, unspecified Problem details: This patient states his anxiety is well-controlled on the duloxetine. Stopped his benzodiazepines completely. (7) Chronic pain: Status: Acute Code(s): G89.29 - Other chronic pain Qualifiers: Chronic pain type: other chronic pain Qualified Code(s): G89.29 - Other chronic pain Problem details: Please see above. Meds Home Medications and Allergies Home Medications Medication Instructions Recorded Confirmed Type albuterol sulfate 90 mcg/actuation 2 inh inhalation QIDP PRN 11/05/23 11/05/23 History aerosol inhaler Shortness Of Breath Or Wheezing aspirin 81 mg tablet 81 mg PO DAILY 11/05/23 11/05/23 History atorvastatin 20 mg tablet 20 mg PO HS 11/05/23 11/05/23 History carvedilol 3.125 mg tablet 3.125 mg PO BID 11/05/23 11/05/23 History duloxetine 60 mg capsule,delayed 60 mg PO DAILY 11/05/23 11/05/23 History release gabapentin 800 mg tablet 1,200 mg PO TID 11/05/23 11/05/23 History multivitamin 1 tab PO DAILY 11/05/23 11/05/23 History olanzapine 20 mg tablet 20 mg PO HS 11/05/23 11/05/23 History oxycodone 15 mg tablet 15 mg PO QID 11/05/23 11/05/23 History tiotropium 2.5 mcg-olodaterol 2.5 2 inh inhalation DAILY 11/05/23 11/05/23 History mcg/actuation mist for inhalation (Stiolto Respimat) doxycycline hyclate 100 mg tablet 100 mg PO BID 7 days #14 tabs 11/07/23 Rx levofloxacin 750 mg tablet 750 mg PO 1100 4 days #4 tabs 11/07/23 Rx prednisone 20 mg tablet 40 mg (2 x 20 mg) PO DAILY 2 days 11/07/23 Rx #4 tabs New Prescriptions to Start Prescriptions: cody hyclate Kota Arrington levofloxacin Murphy,Kota prednisone Kota Arrington Allergies Allergy/AdvReac Type Severity Reaction Status Date / Time methocarbamol [From ROBAXIN] Allergy Unknown Verified 10/31/23 13:54 pregabalin [From LYRICA] Allergy Unknown Verified 10/31/23 13:54 ibuprofen AdvReac Verified 10/31/23 13:54 Discharge Plan Disposition Patient Disposition: Home, Self-Care Condition: Fair Discharge Order Discharge Orders: Discharge Order (Routine); Ordered 11/07/23 Ordered By: Kota Arrington Follow up Plan Follow up with: Vikas Rizo DO [Primary Care Provider] - 11/14/23 11:00 am Cait Marcelo MD [Physician] - 11/19/23 2:15 pm Prescriptions/Medication Reconciliation: New prednisone 20 mg Tablet 40 mg PO DAILY 2 Days Qty: 4 0RF levofloxacin 750 mg Tablet 750 mg PO 1100 4 Days Qty: 4 0RF doxycycline hyclate 100 mg tablet 100 mg PO BID 7 Days Qty: 14 0RF Continued atorvastatin 20 mg tablet 20 mg PO HS Patient Comments: TAKE ONE TABLET BY MOUTH EVERY DAY carvedilol 3.125 mg tablet 3.125 mg PO BID Patient Comments: TAKE ONE TABLET BY MOUTH TWICE DAILY FOR HIGH blood pressure oxycodone 15 mg tablet 15 mg PO QID Patient Comments: TAKE ONE TABLET BY MOUTH FOUR TIMES DAILY NEEDED FOR neuropathy AND chronic BACK pain MAY CAUSE DROWSINESS gabapentin 800 mg tablet 1,200 mg PO TID Patient Comments: TAKE 1 AND 1/2 TABLET BY MOUTH THREE TIMES DAILY MAY CAUSE DROWSINESS albuterol sulfate 90 mcg/actuation HFA aerosol inhaler 2 inh INHALATION QIDP PRN (Reason: Shortness Of Breath Or Wheezing) Patient Comments: INHALE TWO PUFFS BY MOUTH FOUR TIMES DAILY NEEDED FOR SHORTNESS OF BREATH OR wheezing duloxetine 60 mg capsule,delayed release(DR/EC) 60 mg PO DAILY Patient Comments: TAKE ONE CAPSULE BY MOUTH EVERY DAY Stiolto Respimat 2.5-2.5 mcg/actuation mist 2 inh INHALATION DAILY Patient Comments: INHALE TWO PUFFS BY MOUTH EVERY DAY aspirin 81 mg Tablet 81 mg PO DAILY multivitamin Tablet 1 tab PO DAILY Patient Comments: TAKE ONE TABLET BY MOUTH EVERY DAY olanzapine 20 mg tablet 20 mg PO HS Patient Comments: TAKE ONE TABLET BY MOUTH EVERY DAY Problem Reconciliation Problems Reviewed?: Yes Patient Discharge Instructions ACTIVITY: Continue current activity DIET: continue same diet Patient Instructions: DI for Pneumonia -- Adult, DI for Respiratory Failure Providers Primary Care Provider: Vikas Rizo Admit Provider: Dudley Mckeon Attending Provider: Dudley Mckeon
[2023-11-07] MEDS: CARVEDILOL 3.125MG TABLET 3.125 MG PO (09:03)
[2023-11-07] MEDS: ASPIRIN EC 81MG TABLET 81 MG PO (09:03)
[2023-11-07] MEDS: ENOXAPARIN 40MG/0.4ML SYRINGE 40 MG SQ (09:04)
[2023-11-07] MEDS: DOCUSATE SODIUM 100 MG CAPSULE PO (09:04)
[2023-11-07] MEDS: DULOXETINE 30MG CAPSULE.DR 60 MG PO (09:04)
[2023-11-07] MEDS: GABAPENTIN 600MG TABLET 1200 MG PO (09:05)
[2023-11-07] MEDS: OXYCODONE 5MG IMMEDIATE RELEASE TABLET 15 MG PO (09:07)
[2023-11-07] MEDS: predniSONE 20MG TAB 40 MG PO (10:42)
[2023-11-07] MEDS: levoFLOXacin 750 MG TABLET PO (10:42)
== END 2023-11-07 11:21 | disposition home or self-care (01) | DRG 871 ==
LOC: ER 01:49 → 2ND 05:59
PROVIDERS: Internal Medicine Adolescent Medicine; Nurse Practitioner Family; Admitting Provider Internal Medicine; Emergency Provider Emergency Medicine; PCP Internal Medicine; Visit Provider Internal Medicine
DX: A41.9 Sepsis, unspecified organism (principal); J18.9 Pneumonia, unspecified organism; J96.21 Acute and chronic respiratory failure with hypoxia; J44.0 Chronic obstructive pulmonary disease with (acute) lower respiratory infection; I42.9 Cardiomyopathy, unspecified; Z99.81 Dependence on supplemental oxygen; E78.5 Hyperlipidemia, unspecified; I10 Essential (primary) hypertension; R65.20 Severe sepsis without septic shock; F41.9 Anxiety disorder, unspecified
CPT/HCPCS: 36415; 71045; 71275; 80053; 81001; 82803; 83605; 83735; 83880; 84484; 85007; 85025; 87040; 87070; 87077; 87186; 87205; 87581; 87632; 87635; 87798; 93005; 94640; 94761; 99291; J2543; J3370; Q9967

== ENCOUNTER 2023-11-13 13:06 | Emergency (ER) | payer MEDICARE, MEDICAID, SELFPAY ==
[2023-11-13 13:15] VITALS: BP 119/69; PULSE 60; RESP 18; TEMP 36.9; O2SAT 97; BMI 16.0
[2023-11-13 13:31] VITALS: BP 106/54; PULSE 66; O2SAT 98
[2023-11-13 13:39] LABS: Basophils # 0.1 K/mm3 (0-0.2); Basophils % 1.5 % (0.1-2.0); Eosinophils # 0.2 K/mm3 (0.0-0.4); Eosinophils % 3.1 % (0.1-12.0); Hematocrit 38.5 % (42.0-52.0); Hemoglobin 11.9 g/dL (14.1-18.0); Lymphocytes # 2.2 K/mm3 (0.7-4.5); Lymphocytes % 28.1 % (10-50); Mean Corpuscular Hemoglobin 30.1 pg (27.0-31.2); Mean Corpuscular Volume 97.2 fl (80-94); Monocytes # 0.5 K/mm3 (0.1-1.0); Neutrophils # 4.8 K/mm3 (1.8-7.8); Neutrophils % 61.4 % (37.0-80.0); Platelet Count 704 K/mm3 (142-424); Red Blood Count 3.96 M/mm3 (4.60-6.20); Red Cell Distribution Width 16.2 % (11.5-17.5); White Blood Count 7.8 K/mm3 (4.8-10.8)
--- NOTE | 2023-11-13 13:41 | HMH.EDGENADL ---
Discharge Plan Disposition Patient Disposition: Home, Self-Care Condition: Good Prescriptions Prescriptions: No Action atorvastatin 20 mg tablet 20 mg PO HS Patient Comments: TAKE ONE TABLET BY MOUTH EVERY DAY carvedilol 3.125 mg tablet 3.125 mg PO BID Patient Comments: TAKE ONE TABLET BY MOUTH TWICE DAILY FOR HIGH blood pressure oxycodone 15 mg tablet 15 mg PO QID Patient Comments: TAKE ONE TABLET BY MOUTH FOUR TIMES DAILY NEEDED FOR neuropathy AND chronic BACK pain MAY CAUSE DROWSINESS gabapentin 800 mg tablet 1,200 mg PO TID Patient Comments: TAKE 1 AND 1/2 TABLET BY MOUTH THREE TIMES DAILY MAY CAUSE DROWSINESS albuterol sulfate 90 mcg/actuation HFA aerosol inhaler 2 inh INHALATION QIDP PRN (Reason: Shortness Of Breath Or Wheezing) Patient Comments: INHALE TWO PUFFS BY MOUTH FOUR TIMES DAILY NEEDED FOR SHORTNESS OF BREATH OR wheezing duloxetine 60 mg capsule,delayed release(DR/EC) 60 mg PO DAILY Patient Comments: TAKE ONE CAPSULE BY MOUTH EVERY DAY Stiolto Respimat 2.5-2.5 mcg/actuation mist 2 inh INHALATION DAILY Patient Comments: INHALE TWO PUFFS BY MOUTH EVERY DAY aspirin 81 mg Tablet 81 mg PO DAILY multivitamin Tablet 1 tab PO DAILY Patient Comments: TAKE ONE TABLET BY MOUTH EVERY DAY olanzapine 20 mg tablet 20 mg PO HS Patient Comments: TAKE ONE TABLET BY MOUTH EVERY DAY prednisone 20 mg Tablet 40 mg PO DAILY 2 Days Qty: 4 0RF levofloxacin 750 mg Tablet 750 mg PO 1100 4 Days Qty: 4 0RF doxycycline hyclate 100 mg tablet 100 mg PO BID 7 Days Qty: 14 0RF Referrals Follow up/Referrals: Vikas Rizo DO [Primary Care Provider] - See instructions Activity Restrictions/Add. Instructions Additional Instructions/Restrictions: You were evaluated in the emergency department today. Please follow-up closely with your primary care provider. Return to the emergency department for new or worsening symptoms. Keep your legs elevated to reduce swelling. Make sure to limit sodium intake. Clinical Impressions Clinical Impression: Localized swelling of both lower legs Instructions Patient Instructions: DI for Dependent Edema, DI for Peripheral Edema -- Bilateral Discharge ED Provider: Sophia Awan General Adult HPI General Chief complaint: Extremity Problem,Nontraumatic Stated complaint: swelling in both legs Time Seen by Provider: 11/13/23 13:22 Mode of Arrival: Ambulatory Source of Information: Patient Limitations: No Limitations Description of Symptoms (Recalled from ER Triage Doc. by RN): pt to ed c/o bilateral LE swelling that started last night. pt denies SOA or pain. History of Present Illness HPI narrative: This patient is a 63-year-old male with a history of COPD, hypertension, hyperlipidemia, cardiomyopathy, diastolic dysfunction, and anxiety presenting to the emergency department for evaluation with concern for bilateral leg swelling. He states that he went to put lotion on last night and noted that his legs were little bit swollen. He states that it seems slightly worse today. He does not take a fluid pill at home and denies any other concerns, such as fevers, chest pain, shortness of breath, or other issues. Related Data Home Medications Medication Instructions Recorded Confirmed albuterol sulfate 90 mcg/actuation 2 inh inhalation QIDP PRN 11/05/23 11/05/23 aerosol inhaler Shortness Of Breath Or Wheezing aspirin 81 mg tablet 81 mg PO DAILY 11/05/23 11/05/23 atorvastatin 20 mg tablet 20 mg PO HS 11/05/23 11/05/23 carvedilol 3.125 mg tablet 3.125 mg PO BID 11/05/23 11/05/23 duloxetine 60 mg capsule,delayed 60 mg PO DAILY 11/05/23 11/05/23 release gabapentin 800 mg tablet 1,200 mg PO TID 11/05/23 11/05/23 multivitamin 1 tab PO DAILY 11/05/23 11/05/23 olanzapine 20 mg tablet 20 mg PO HS 11/05/23 11/05/23 oxycodone 15 mg tablet 15 mg PO QID 11/05/23 11/05/23 tiotropium 2.5 mcg-olodaterol 2.5 2 inh inhalation DAILY 11/05/23 11/05/23 mcg/actuation mist for inhalation (Stiolto Respimat) Previous Rx's Medication Instructions Recorded doxycycline hyclate 100 mg tablet 100 mg PO BID 7 days #14 tabs 11/07/23 levofloxacin 750 mg tablet 750 mg PO 1100 4 days #4 tabs 11/07/23 prednisone 20 mg tablet 40 mg (2 x 20 mg) PO DAILY 2 days 11/07/23 #4 tabs Allergies Allergy/AdvReac Type Severity Reaction Status Date / Time methocarbamol [From ROBAXIN] Allergy Unknown Verified 10/31/23 13:54 pregabalin [From LYRICA] Allergy Unknown Verified 10/31/23 13:54 ibuprofen AdvReac Verified 10/31/23 13:54 [facility] Disclaimer: The information contained in this section may have been updated after the patient was seen, as this information can be updated by other users. Medical History SIRS (systemic inflammatory response syndrome) Acute and chronic respiratory failure with hypoxia Postherpetic trigeminal neuralgia Encounter for screening for malignant neoplasm of lung in current smoker with 30 pack year history or greater Abnormal screening computed tomography (CT) of chest Nonischemic cardiomyopathy Diastolic dysfunction Elevated left ventricular end-diastolic pressure (LVEDP) Non-STEMI (non-ST elevated myocardial infarction) Emphysema/COPD Pneumonia due to gram-negative bacteria Low body mass index (BMI) COPD (chronic obstructive pulmonary disease) with acute bronchitis Upper respiratory infection Rhinovirus infection HLD (hyperlipidemia) Tobacco dependence syndrome Chest pain Cardiomyopathy Preoperative clearance Poisoning by opiate or related narcotic Atypical pneumonia Postherpetic neuralgia Left against medical advice HTN (hypertension) Elevated C-reactive protein CAP (community acquired pneumonia) COPD (chronic obstructive pulmonary disease) Pain, eye, right Herpes zoster ophthalmicus, right eye Eye pain Shingles Neuropathy Surgical History H/O cervical spine surgery H/O cardiac catheterization Family History Mother Lung cancer Family history of acute congestive heart failure Father Lung cancer Family history of acute congestive heart failure Social History Smoking Status: Never smoker smoking status stop date: december 2021 second hand exposure: Yes alcohol intake: current alcohol intake frequency: holidays/special occasions only substance use type: denies use current occupational status: disabled Travel in the last 8 weeks: None household members: children housing: house marital status: current occupational exposures/hazards: No pets and animals: No caffeine: Yes ROS Obtained: Yes All systems reviewed & no additional complaints except as documented Physical Exam General General appearance: alert and in no apparent distress Head Head exam: atraumatic and normocephalic Eye Eye exam: Present normal appearance, PERRL and EOMI ENT ENT exam: Present normal exam, normal oropharynx, mucous membranes moist and normal external ear exam Neck Neck exam: Present normal inspection, full ROM and trachea midline; Absent tenderness Chest Chest inspection: Present normal inspection and symmetric chest wall rise; Absent tenderness Respiratory Respiratory exam: Present normal lung sounds bilaterally; Absent respiratory distress, wheezes, stridor or accessory muscle use Cardiovascular Cardiovascular exam: Present regular rate and normal rhythm Abdominal Exam Abdominal exam: Present soft; Absent distention, tenderness or guarding Extremities Exam Extremities exam: Present full ROM, normal capillary refill and edema (Trace bilateral lower extremity edema that is symmetric with no skin color changes); Absent tenderness Back Exam Back exam: Present normal inspection and full ROM; Absent tenderness Neurological Exam Neurological exam: Present alert, oriented X3, CN II-XII intact and normal gait; Absent motor sensory deficit Psychiatric Psychiatric exam: Present normal affect and normal mood Skin Skin exam: Present warm and dry Medical Decision Making Medical Records Medical records reviewed: Yes I reviewed the patient's medical records. Marck Inquiry Pt receiving controlled substance: No Vital Signs: 11/13/23 13:15 11/13/23 13:31 11/13/23 14:00 Temperature 98.4 F Temperature Source Oral Pulse Rate 66 60 Pulse Rate [Left Radial] 60 Respiratory Rate 18 Blood Pressure 106/54 L 118/65 Blood Pressure [Right Arm] 119/69 Blood Pressure Mean 74 Blood Pressure Mean [Right Arm] 85 Blood Pressure Position 02 Sat by Pulse Oximetry 97 98 96 Oxygen Delivery Method 11/13/23 14:30 11/13/23 14:59 Temperature 98.0 F Temperature Source Pulse Rate 64 65 Pulse Rate [Left Radial] Respiratory Rate 16 Blood Pressure 116/78 116/78 Blood Pressure [Right Arm] Blood Pressure Mean Blood Pressure Mean [Right Arm] Blood Pressure Position Sitting 02 Sat by Pulse Oximetry 94 L Oxygen Delivery Method Room Air Room Air Lab Data Lab results reviewed: Yes I reviewed the patient's lab results. Lab Results 11/13/23 13:25: WBC 7.8, RBC 3.96 L, Hgb 11.9 L, Hct 38.5 L, MCV 97.2 H, MCH 30.1, MCHC 31.0 L, RDW 16.2, Plt Count 704 H, MPV 8.0, Neut % (Auto) 61.4, Lymph % (Auto) 28.1, [place] % (Auto) 6.0, Eos % (Auto) 3.1, Baso % (Auto) 1.5, Neut # (Auto) 4.8, Lymph # (Auto) 2.2, [place] # (Auto) 0.5, Eos # (Auto) 0.2, Baso # (Auto) 0.1, Sodium 136, Potassium 4.4, Chloride 99, Carbon Dioxide 30, Anion Gap 11.4, BUN 19, Creatinine 0.70, Estimated Creat Clear 59, Estimated GFR 113, Est GFR ( Amer) 137, Glucose 92, Calcium 8.8, Total Bilirubin 0.3, AST 47, ALT 43, Alkaline Phosphatase 78, NT-Pro-B Natriuret Pep 85.0, Total Protein 6.9, Albumin 3.6, Globulin 3.3 H, Albumin/Globulin Ratio 1.1 11/13/23 13:25 11/13/23 13:25 Orders (Tests/Meds): ORDERS Category Date Time Status BNP [NT Pro Brain Natriuretic Pep.] Stat Lab 11/13/23 13:25 Completed Complete Blood Count Auto Diff Stat Lab 11/13/23 13:25 Completed Comprehensive Metabolic Panel Stat Lab 11/13/23 13:25 Completed Medical Decision Narrative: In summary, this patient is a 63-year-old male presenting to the Emergency Department for evaluation of bilateral lower extremity edema. Differential diagnoses considered include but are not limited to EMMA, CHF, dependent edema. Ruling out the most morbid conditions drove assessment. On exam, the patient is well-appearing with reassuring exam. He is alert and oriented, GCS of 15 sitting upright in bed in no acute distress. He has very trace bilateral lower extremity edema that is symmetric with no skin color changes. Doubt DVT, cellulitis, or other concerns based on exam. Workup included CBC, CMP, BNP. On reassessment, patient is resting comfortably. Labs are reassuring. Given reassuring workup and exam, feel that he is appropriate for discharge home with close PCP follow-up. He was given instructions for close follow-up and supportive management. Patient was discharged after all questions were answered with strict return precautions. Critical Care Critical Care Time Critical Care Time: No
[2023-11-13 13:48] LABS: Alanine Aminotransferase 43 U/L (12-78); Albumin Level 3.6 g/dl (3.5-5.0); Albumin/Globulin Ratio 1.1 (1.1-1.8); Alkaline Phosphatase 78 U/L (38-126); Anion Gap 11.4 mEq/L (5-15); Aspartate Amino Transferase 47 U/L (17-59); Bilirubin,Total 0.3 mg/dl (0.2-1.3); Blood Urea Nitrogen 19 mg/dl (9-20); Calcium 8.8 mg/dl (8.4-10.2); Carbon Dioxide 30 mmol/L (22.0-30.0); Chloride 99 mmol/L (98-107); Creatinine Clearance Estimated 59 mL/min (50-200); Estimated Glomerular Filt Rate 113 ml/min (>60); GFR (African American) 137 ML/MIN (>60); Globulin 3.3 g/dL (1.3-3.2); Glucose 92 mg/dl (74-100); Potassium 4.4 mmoL/L (3.5-5.1); Sodium 136 mmol/L (136-145); Total Protein,Serum 6.9 g/dl (6.3-8.2)
[2023-11-13 14:00] VITALS: BP 118/65; PULSE 60; O2SAT 96
[2023-11-13 14:30] VITALS: BP 116/78; PULSE 64; O2SAT 94
--- NOTE | 2023-11-13 14:35 | PC.NURSE ---
Dr. Awan at [facility] to update pt on results and POC
[2023-11-13 14:59] VITALS: BP 116/78; PULSE 65; RESP 16; TEMP 36.7; O2SAT 95
== END 2023-11-13 15:01 | disposition home or self-care (01) ==
PROVIDERS: Emergency Provider Emergency Medicine; PCP Internal Medicine
DX: R22.43 Localized swelling, mass and lump, lower limb, bilateral (principal); J44.9 Chronic obstructive pulmonary disease, unspecified; I10 Essential (primary) hypertension; E78.5 Hyperlipidemia, unspecified; Z87.891 Personal history of nicotine dependence
CPT/HCPCS: 80053; 83880; 85025; 99283

== ENCOUNTER 2023-11-18 14:18 | Outpatient (CLI) | payer MEDICARE, MEDICAID, SELFPAY ==
--- NOTE | 2023-11-18 14:19 | CT_ITS ---
FINAL REPORT TECHNIQUE: Thin section axial images were obtained from the lung apices to the upper abdomen by computed tomography. Reformatted images were obtained and reviewed. This study was performed with techniques to keep radiation doses al low as reasonably achievable (ALARA). Individualized dose reduction techniques using automated exposure control or adjustment of mA and/or kV according to the patient's size were employed. CLINICAL HISTORY: lung cancer screening current smoker 2ppd x 48 years COMPARISON: Chest CT 11/05/2023, prior LDCT 06/13/2022 FINDINGS: CHEST CT LOW DOSE 63-year-old male, current smoker, 44-sqcr-qkpp history. CTDI vol (mGy): 2.9 DLP (mGy-cm): 117.77 There is no axillary adenopathy. There is no mediastinal or hilar mass or adenopathy. The heart is normal in size. There is no pericardial or pleural effusion. There is moderate emphysema and moderate pulmonary scarring. Lung window images demonstrate a left apical nodule measuring 11 mm in size, new since the prior LDCT of May 2022, but was present on the prior CT of November 04. There are other multifocal opacities which persist, although is significantly improved since November 04, consistent with improving pneumonia. Recommend follow-up CT for further evaluation to ensure continuing improvement. This is responsible for one of the 2S designations. Limited images of the upper abdomen reveal distal esophageal wall thickening, inflammatory versus neoplastic. This is responsible for the second of the S designations. Recommend upper endoscopy to evaluate the distal esophagus if not already performed. IMPRESSION: Lung-RADS category 4A (S). Recommend PET CT to evaluate the new left apical nodule. Disposition of the 2S designations is described in the prior paragraph. Reviewed, Interpreted and Dictated by Leon Berry III, MD Transcribed by Glenda Bojorquez Authenticated and [facility]
== END 2023-11-18 23:59 | disposition home or self-care (01) ==
LOC: RAD 14:19
PROVIDERS: PCP Internal Medicine; Visit Provider Internal Medicine Pulmonary Disease
DX: Z87.891 Personal history of nicotine dependence (principal); J44.9 Chronic obstructive pulmonary disease, unspecified; J43.9 Emphysema, unspecified
CPT/HCPCS: 71271; 94762

== ENCOUNTER 2023-11-28 21:16 | Outpatient (CLI) | payer MEDICARE, MEDICAID, SELFPAY ==
[2023-11-28 21:46] LABS: Creatinine,Urine Random 25 mg/dL (Not Estab.)
[2023-11-28 21:50] LABS: Microalbumin < 6.000 mg/L (0-16.7)
== END 2023-11-28 23:59 | disposition home or self-care (01) ==
LOC: LAB.DROPOF 21:19
PROVIDERS: PCP Internal Medicine; Visit Provider Internal Medicine
DX: Z79.899 Other long term (current) drug therapy (principal)
CPT/HCPCS: 82043; 82570

== ENCOUNTER 2023-12-03 14:02 | Outpatient (CLI) | payer MEDICARE, MEDICAID, SELFPAY ==
[2023-12-03 14:36] LABS: Basophils # 0.1 K/mm3 (0-0.2); Basophils % 1.6 % (0.1-2.0); Eosinophils # 0.6 K/mm3 (0.0-0.4); Eosinophils % 10.5 % (0.1-12.0); Hematocrit 36.3 % (42.0-52.0); Hemoglobin 11.7 g/dL (14.1-18.0); Lymphocytes # 2.2 K/mm3 (0.7-4.5); Lymphocytes % 35.5 % (10-50); Mean Corpuscular HGB Conc 32.4 g/dL (31.8-35.4); Mean Corpuscular Hemoglobin 30.9 pg (27.0-31.2); Mean Corpuscular Volume 95.6 fl (80-94); Mean Platelet Volume 7.4 fl (7.4-10.4); Monocytes # 0.5 K/mm3 (0.1-1.0); Monocytes % 7.8 % (1.7-9.3); Neutrophils # 2.7 K/mm3 (1.8-7.8); Neutrophils % 44.5 % (37.0-80.0); Platelet Count 496 K/mm3 (142-424); Red Blood Count 3.79 M/mm3 (4.60-6.20); Red Cell Distribution Width 16.2 % (11.5-17.5); White Blood Count 6.1 K/mm3 (4.8-10.8)
[2023-12-03 15:43] LABS: Alanine Aminotransferase 23 U/L (12-78); Albumin Level 3.9 g/dl (3.5-5.0); Alkaline Phosphatase 67 U/L (38-126); Aspartate Amino Transferase 29 U/L (17-59); Bilirubin,Indirect 0.3 mg/dL (0.0-0.9); Bilirubin,Total 0.3 mg/dl (0.2-1.3); Bilirubin,Unconjugated 0.4 mg/dL (0.0-1.1); Blood Urea Nitrogen 16 mg/dl (9-20); Calcium 9.6 mg/dl (8.4-10.2); Carbon Dioxide 30 mmol/L (22.0-30.0); Chloride 104 mmol/L (98-107); Chol/HDL Ratio 3.5 (1-3.5); Cholesterol 165 mg/dl (140-200); Estimated Glomerular Filt Rate 135 ml/min (>60); GFR (African American) 164 ML/MIN (>60); Glucose 82 mg/dl (74-100); HDL Cholesterol 47 mg/dl (40-60); Sodium 142 mmol/L (136-145); Total Protein,Serum 6.9 g/dl (6.3-8.2); Triglycerides 167 mg/dl (30-150); VLDL Cholesterol 33 mg/dL (0-40)
[2023-12-03 15:54] LABS: Direct LDL Cholesterol 80.69 mg/dL (100-129)
[2023-12-03 15:59] LABS: Free T4 (Free Thyroxine) 0.99 ng/dl (0.78-2.19)
[2023-12-03 16:12] LABS: Thyroid Stimulating Hormone 1.37 uIU/mL (0.465-4.68)
== END 2023-12-03 23:59 | disposition home or self-care (01) ==
LOC: LAB 14:04
PROVIDERS: PCP Internal Medicine; Visit Provider Internal Medicine
DX: I11.9 Hypertensive heart disease without heart failure (principal); I42.9 Cardiomyopathy, unspecified; E78.2 Mixed hyperlipidemia; J43.2 Centrilobular emphysema; R94.30 Abnormal result of cardiovascular function study, unspecified
CPT/HCPCS: 36415; 80048; 80061; 80076; 83735; 84439; 84443; 85025

== ENCOUNTER 2023-12-12 10:34 | Outpatient (CLI) | payer MEDICARE, MEDICAID, SELFPAY | END 2023-12-12 23:59 | disposition home or self-care (01) | LOC: RT 10:35 | PROVIDERS: PCP Internal Medicine; Visit Provider Internal Medicine Pulmonary Disease | DX: J44.9 Chronic obstructive pulmonary disease, unspecified (principal) ==

== ENCOUNTER 2023-12-24 11:06 | Outpatient (CLI) | payer MEDICARE, MEDICAID, SELFPAY | END 2023-12-24 23:59 | disposition home or self-care (01) | LOC: RT 11:07 | PROVIDERS: PCP Internal Medicine; Visit Provider Internal Medicine Pulmonary Disease | DX: J44.9 Chronic obstructive pulmonary disease, unspecified (principal); Z87.891 Personal history of nicotine dependence | CPT/HCPCS: 94762 ==

== ENCOUNTER 2023-12-31 10:37 | Outpatient (CLI) | payer MEDICARE, MEDICAID, SELFPAY | END 2023-12-31 23:59 | disposition home or self-care (01) | LOC: LAB.DROPOF 10:38 | PROVIDERS: PCP Internal Medicine; Visit Provider Internal Medicine Pulmonary Disease | DX: R91.8 Other nonspecific abnormal finding of lung field (principal) | CPT/HCPCS: 87070; 87077; 87205 ==

== ENCOUNTER 2024-02-03 10:48 | Emergency (ER) | payer MEDICARE, MEDICAID, SELFPAY ==
[2024-02-03 10:49] VITALS: BP 123/78; PULSE 67; RESP 16; TEMP 36.6; O2SAT 97; BMI 15.7
--- NOTE | 2024-02-03 11:10 | PC.NURSE ---
Dion Burciaga at bs for pt eval
--- NOTE | 2024-02-03 11:12 | ED_ITS ---
Discharge Plan Disposition Patient Disposition: Home, Self-Care Prescriptions Prescriptions: New sulfamethoxazole-trimethoprim [Bactrim DS] 800-160 mg tablet 1 tab PO BID 10 Days Qty: 20 0RF cephalexin 500 mg capsule 500 mg PO QID 10 Days Qty: 40 0RF No Action Entresto 24-26 mg tablet 2 tab PO ONCE Patient Comments: TAKE ONE TABLET BY MOUTH TWICE DAILY FOR congestive heart failure aspirin 81 mg tablet 81 mg PO DAILY oxycodone 10 mg tablet 10 mg PO Q4H MDD No >5 per day PRN (Reason: pain) Qty: 150 0RF carvedilol 3.125 mg tablet See Rx Instructions .ROUTE .COMPLEX Qty: 180 3RF Dose Instruction: TAKE ONE TABLET BY MOUTH TWICE DAILY FOR HIGH blood pressure Rx Instructions: TAKE ONE TABLET BY MOUTH TWICE DAILY FOR HIGH blood pressure duloxetine 60 mg capsule,delayed release(DR/EC) See Rx Instructions .ROUTE .COMPLEX Qty: 180 0RF Dose Instruction: TAKE ONE CAPSULE BY MOUTH TWICE DAILY Rx Instructions: TAKE ONE CAPSULE BY MOUTH TWICE DAILY gabapentin 800 mg tablet 800 mg PO TID Qty: 90 1RF atorvastatin 20 mg tablet 20 mg PO HS Patient Comments: TAKE ONE TABLET BY MOUTH EVERY DAY albuterol sulfate 90 mcg/actuation HFA aerosol inhaler 2 inh INHALATION QIDP PRN (Reason: Shortness Of Breath Or Wheezing) Patient Comments: INHALE TWO PUFFS BY MOUTH FOUR TIMES DAILY NEEDED FOR SHORTNESS OF BREATH OR wheezing Stiolto Respimat 2.5-2.5 mcg/actuation mist 2 inh INHALATION DAILY Patient Comments: INHALE TWO PUFFS BY MOUTH EVERY DAY multivitamin Tablet 1 tab PO DAILY Patient Comments: TAKE ONE TABLET BY MOUTH EVERY DAY Referrals Follow up/Referrals: Vikas Rizo DO [Primary Care Provider] - See instructions Activity Restrictions/Add. Instructions Additional Instructions/Restrictions: As discussed you have a very small skin ulceration with surrounding cellulitis please continue to apply topical Neosporin and take your oral antibiotics as prescribed. This should improve in 48 to 72 hours if not please return your primary care doctor or return to the emergency department with any significant worsening. Clinical Impressions Clinical Impression: Skin ulcer of left lower leg, Cellulitis Instructions Patient Instructions: DI for Skin Abscess Print Language Print Language: Luxembourgish Discharge ED Provider: Ernesto Ashley General Adult HPI General Chief complaint: Skin/Abscess/Foreign Body Stated complaint: infected wound on left leg Time Seen by Provider: 02/03/24 11:08 Mode of Arrival: Ambulatory Source of Information: Patient Limitations: No Limitations Description of Symptoms (Recalled from ER Triage Doc. by RN): Patient reports possible infected wound to left lower extremity for 3-4 days. History of Present Illness HPI narrative: 63-year-old presenting today with concern for wound left medial aspect lower l eg. Ongoing last 3 to 4 days with spreading redness. Has been putting Neosporin on this without significant improvement. No definitive trauma to this area. Related Data Home Medications ?Medication ?Instructions ?Recorded ?Confirmed albuterol sulfate 90 mcg/actuation 2 inh inhalation QIDP PRN 11/05/23 01/30/24 aerosol inhaler Shortness Of Breath Or Wheezing atorvastatin 20 mg tablet 20 mg PO HS 11/05/23 01/30/24 multivitamin 1 tab PO DAILY 11/05/23 01/30/24 tiotropium 2.5 mcg-olodaterol 2.5 2 inh inhalation DAILY 11/05/23 01/30/24 mcg/actuation mist for inhalation (Stiolto Respimat) aspirin 81 mg tablet 81 mg PO DAILY 11/28/23 01/30/24 sacubitril 24 mg-valsartan 26 mg 2 tab PO ONCE 11/28/23 01/30/24 tablet (Entresto) Previous Rx's ?Medication ?Instructions ?Recorded carvedilol 3.125 mg tablet See Rx Instructions .Route 11/27/23 .COMPLEX #180 tabs duloxetine 60 mg capsule,delayed See Rx Instructions .Route 12/04/23 release .COMPLEX #180 caps gabapentin 800 mg tablet 800 mg PO TID #90 tabs 01/27/24 oxycodone 10 mg tablet 10 mg PO Q4H PRN pain #150 tabs 01/30/24 cephalexin 500 mg capsule 500 mg PO QID 10 days #40 caps 02/03/24 sulfamethoxazole 800 1 tab PO BID 10 days #20 tabs 02/03/24 mg-trimethoprim 160 mg tablet (Bactrim DS) Allergies Allergy/AdvReac Type Severity Reaction Status Date / Time methocarbamol [From ROBAXIN] Allergy Unknown Verified 01/30/24 14:51 pregabalin [From LYRICA] Allergy Unknown Verified 01/30/24 14:51 ibuprofen AdvReac Verified 01/30/24 14:51 [facility] Disclaimer: The information contained in this section may have been updated after the patient was seen, as this information can be updated by other users. Medical History Solid nodule of lung greater than 8 mm in diameter COPD mixed type Nodule of left lung SIRS (systemic inflammatory response syndrome) Acute and chronic respiratory failure with hypoxia Postherpetic trigeminal neuralgia Encounter for screening for malignant neoplasm of lung in current smoker with 30 pack year history or greater Abnormal screening computed tomography (CT) of chest Nonischemic cardiomyopathy Diastolic dysfunction Elevated left ventricular end-diastolic pressure (LVEDP) Non-STEMI (non-ST elevated myocardial infarction) Emphysema/COPD Pneumonia due to gram-negative bacteria Low body mass index (BMI) COPD (chronic obstructive pulmonary disease) with acute bronchitis Upper respiratory infection Rhinovirus infection HLD (hyperlipidemia) Tobacco dependence syndrome Chest pain Cardiomyopathy Preoperative clearance Poisoning by opiate or related narcotic Atypical pneumonia Postherpetic neuralgia Left against medical advice HTN (hypertension) Elevated C-reactive protein CAP (community acquired pneumonia) COPD (chronic obstructive pulmonary disease) Pain, eye, right Herpes zoster ophthalmicus, right eye Eye pain Shingles Neuropathy Surgical History H/O cervical spine surgery H/O cardiac catheterization Family History Mother Lung cancer Family history of acute congestive heart failure Father Lung cancer Family history of acute congestive heart failure Social History Smoking Status: Former smoker tobacco type: cigarettes packs per day: 1 smoking status stop date: december 2021 second hand exposure: Yes alcohol intake: current alcohol intake frequency: holidays/special occasions only substance use type: denies use current occupational status: disabled Travel in the last 8 weeks: None household members: children housing: house marital status: current occupational exposures/hazards: No pets and animals: No caffeine: Yes ROS Obtained: Yes All systems reviewed & no additional complaints except as documented Physical Exam General General appearance: alert Respiratory Respiratory exam: Present normal lung sounds bilaterally Cardiovascular Cardiovascular exam: Present regular rate Extremities Exam Extremities exam: Present other (Left medial aspect of lower leg there is a very superficial ulceration with surrounding erythema about 4 x 4 cm. No significant purulent debris or moist area that can be cultured) Neurological Exam Neurological exam: Present alert and oriented X3 Medical Decision Making Marck Inquiry Pt receiving controlled substance: No Vital Signs: 02/03/24 10:49 Temperature 97.8 F Temperature Source Oral Pulse Rate [Radial] 67 Respiratory Rate 16 Blood Pressure [Right Arm] 123/78 Blood Pressure Mean [Right Arm] 93 Blood Pressure Source [Right Arm] Automatic Cuff Blood Pressure Position [Right Arm] Sitting 02 Sat by Pulse Oximetry 97 Oxygen Delivery Method Nasal Cannula Oxygen Flow Rate (LPM) 2 Medical Decision Narrative: 63-year-old with superficial ulceration and surrounding cellulitis clinically left medial aspect of lower leg. Most likely staph or strep will treat with Keflex and Bactrim. Does not appear to be any significant moist drainage that can be cultured at this moment. He has been advised to follow-up in 4872 hours with any significant improvement. He was discharged in stable condition. Critical Care Critical Care Time Critical Care Time: No
[2024-02-03 11:14] VITALS: BP 145/69; PULSE 66; RESP 18; TEMP 36.6; O2SAT 95
== END 2024-02-03 11:16 | disposition home or self-care (01) ==
PROVIDERS: Emergency Provider Student in an Organized Health Care Education/Training Program; PCP Internal Medicine
DX: L03.116 Cellulitis of left lower limb (principal); L97.921 Non-pressure chronic ulcer of unspecified part of left lower leg limited to breakdown of skin
CPT/HCPCS: 99283

== ENCOUNTER 2024-03-05 09:14 | Day surgery (SDC) | payer MEDICARE, MEDICAID, SELFPAY ==
[2024-02-27 12:57] VITALS: BMI 15.6
[2024-03-05] MEDS: LACTATED RINGERS 1000ML 1,000 ML 25 ML IV (09:31)
[2024-03-05 09:34] VITALS: BP 145/72; PULSE 67; RESP 18; TEMP 37.2; O2SAT 96
--- NOTE | 2024-03-05 09:35 | EXP.ANES.CKL ---
[facility] Disclaimer: The information contained in this section may have been updated after the patient was seen, as this information can be updated by other users. Medical History Solid nodule of lung greater than 8 mm in diameter COPD mixed type Nodule of left lung SIRS (systemic inflammatory response syndrome) Acute and chronic respiratory failure with hypoxia Postherpetic trigeminal neuralgia Encounter for screening for malignant neoplasm of lung in current smoker with 30 pack year history or greater Abnormal screening computed tomography (CT) of chest Nonischemic cardiomyopathy Diastolic dysfunction Elevated left ventricular end-diastolic pressure (LVEDP) Non-STEMI (non-ST elevated myocardial infarction) Emphysema/COPD Pneumonia due to gram-negative bacteria Low body mass index (BMI) COPD (chronic obstructive pulmonary disease) with acute bronchitis Upper respiratory infection Rhinovirus infection HLD (hyperlipidemia) Tobacco dependence syndrome Chest pain Cardiomyopathy Preoperative clearance Poisoning by opiate or related narcotic Atypical pneumonia Postherpetic neuralgia Left against medical advice HTN (hypertension) Elevated C-reactive protein CAP (community acquired pneumonia) COPD (chronic obstructive pulmonary disease) Pain, eye, right Herpes zoster ophthalmicus, right eye Eye pain Shingles Neuropathy Surgical History H/O cervical spine surgery H/O cardiac catheterization Family History Mother Lung cancer Family history of acute congestive heart failure Father Lung cancer Family history of acute congestive heart failure Social History Smoking Status: Former smoker tobacco type: cigarettes packs per day: 1 smoking status stop date: december 2021 second hand exposure: Yes alcohol intake: never substance use type: denies use current occupational status: disabled Travel in the last 8 weeks: None household members: children housing: house marital status: current occupational exposures/hazards: No pets and animals: No caffeine: Yes [facility] Anesthesia Checklist Patient Identification Patient Identification: Arm Band and Verbal (Name & ) Structural Data Admitted From: Home Planned Operative Procedure/s: Colonoscopy Consent for Planned Operative Procedure(s) Verified: Yes Verified Documents: Surgical Consent and History and Physical NPO Status Verified Time NPO: 00:00 Additional verifications Anesthesia Reactions: No Hx Blood Transfusions: No Blood Transfusion Reaction: No Airway Assessment Mallampati Score:: Class III C-Spine Mobility Assessed: Yes TMJ Mobility Assessed: Yes Dentition: Poor Dentition Neurological Assessment Level of Consciousness: Awake Hx Seizures: No Numbness or tingling in extremities: No Anesthesia Plan Anesthesia Risk discussed: Yes Anesthesia Plan: Verified ASA Class: IV Anesthesia Type: MAC
[2024-03-05 11:05] VITALS: O2SAT 96
--- NOTE | 2024-03-05 11:35 | HMH.PROCNOTE ---
[facility] Procedure Note Date: 03/05/24 Time: 11:36 Procedure Note:: Colonoscopy Procedure Report: Colonoscopy with cold snare polypectomy Endoscopist: Josh Smith II, MD Referring physician: Vikas Rizo MD Date of Procedure: 03/05/2024 Equipment: Olympus 190 variable stiffness pediatric colonoscope Sedation: MAC sedation Indication: Mr. Turk is a 63-year-old gentleman who is here for initial screening colonoscopy. He reports no abdominal pain, weight loss, change in his bowel habits or rectal bleeding. He reports no family history of colon cancer. Procedure: Prior to the procedure, a history and physical exam was performed, and patient's medications and allergies were reviewed. The risks, benefits and alternatives of the sedation and procedure were discussed with the patient. All questions were answered and informed consent was obtained. The patient was brought to the procedure room. Patient identification and proposed procedure were verified by the physician and the nurse. The patient was placed in a left lateral decubitus position and the scope was passed under direct vision. Throughout the procedure, the patient's blood pressure, pulse, and oxygen saturations were monitored continuously. The colonoscopy was accomplished without difficulty. The patient tolerated the procedure well. Findings: On digital rectal examination there was normal rectal tone. There were no external hemorrhoids. The colonoscope was introduced through the anal canal to the rectum and advanced to the cecum. The ileocecal valve and appendiceal orifice were identified. The scope was advanced a short distance into the ileum which appeared grossly normal. The scope was then withdrawn into the colon. There were 4 colon polyps identified in the ascending x 1 (6 mm), descending x 2 (4 and 6 mm) and sigmoid x 1 (5 mm). These ranged in size from 4 to 6 mm and were all removed via cold snare polypectomy. The remaining cecum, ascending, transverse, descending, sigmoid and rectum were grossly normal. There were no other mucosal abnormalities identified. Upon retroflexion within the rectum there were grade 1-2 internal hemorrhoids.The preparation was fair throughout with [place] Preparation Score of 7 out of 9. The cecal time was 10 minutes. Impression: 1. Diminutive colonic polyps x 4 2. Grade 1-2 internal hemorrhoids Plan: I will follow up the polyp pathology and recommend repeat colonoscopy again in 5 years based upon the polyp histology. I would encourage fiber supplementation on a long-term daily maintenance basis.
[2024-03-05 11:39] VITALS: BP 101/60; PULSE 78; RESP 14; TEMP 36.5; O2SAT 93
[2024-03-05 11:49] VITALS: BP 122/68; PULSE 73; RESP 16; O2SAT 95
[2024-03-05 11:59] VITALS: BP 120/65; PULSE 75; RESP 16; O2SAT 92
[2024-03-05 12:09] VITALS: BP 118/67; PULSE 72; RESP 16; O2SAT 89
--- NOTE | 2024-03-05 12:11 | SUR.PHASEII ---
pt o2 noted at 89% on RA. states he has oxygen at home and lives 5 minutes away.
== END 2024-03-05 12:13 | disposition home or self-care (01) ==
PROVIDERS: PCP Internal Medicine; Visit Provider Internal Medicine Gastroenterology
PROC: (CPT 45385; principal; 2024-03-05 10:30)
DX: Z12.11 Encounter for screening for malignant neoplasm of colon (principal); K63.5 Polyp of colon; K64.8 Other hemorrhoids
CPT/HCPCS: 45385; 88305; J7120

== ENCOUNTER 2024-03-31 14:48 | Outpatient (CLI) | payer MEDICARE, MEDICAID, SELFPAY ==
--- NOTE | 2024-03-31 14:48 | CT_ITS ---
FINAL REPORT CLINICAL HISTORY: Nodule F/U COMPARISON: Low-dose chest CT dated 11/18/2023 FINDINGS: CT CHEST WITHOUT CONTRAST TECHNIQUE: Axial images through the chest were performed by computed tomography without contrast. This study was performed with techniques to keep radiation doses as low as reasonably achievable, (ALARA). Individualized dose reduction techniques using automated exposure control or adjustment of mA and/or kV according to the patient's size were employed. FINDINGS: There is no axillary adenopathy. There is no hilar or mediastinal adenopathy. The heart size is normal. There is no pericardial or pleural effusion. There is again noted to be an 11 mm spiculated nodule in the left apex. This appears stable since the prior exam and is well-seen on image 46 of series 3. There is scarring or fibrosis at the lung bases. Limited images of the upper abdomen demonstrate wall thickening of the distal esophagus near the GE junction. This could be due to reflux. IMPRESSION: Stable left apical nodule. 1 year follow-up is recommended. Scarring or fibrosis at the lung bases. Reviewed, Interpreted and Dictated by Caleb Mendiola MD Transcribed by Angella Somers Authenticated and [facility] [place] [place]
== END 2024-03-31 23:59 | disposition home or self-care (01) ==
LOC: RAD 14:48
PROVIDERS: PCP Internal Medicine; Visit Provider Internal Medicine Pulmonary Disease
DX: R91.8 Other nonspecific abnormal finding of lung field (principal)
CPT/HCPCS: 71250

== ENCOUNTER 2024-04-17 13:46 | Emergency (ER) | payer MEDICARE, MEDICAID, SELFPAY ==
[2024-04-17 13:48] VITALS: BP 144/80; PULSE 76; RESP 20; TEMP 36.6; O2SAT 96; BMI 16.0
--- NOTE | 2024-04-17 13:55 | ECG_ITS ---
APPROVED REPORT Exam: Resting ECG HR:73 bpm ECG Measurements Heart Rate 73 AXES NM 131 P 85 QRSd 90 QRS 82 QT 398 T 89 QTc 425 Conclusion SINUS RHYTHM WITH OCCASIONAL VENTRICULAR PREMATURE COMPLEXES No STEMI Electronically signed by : BYRON JEONG, 04/17/2024 16:24:21
--- NOTE | 2024-04-17 14:22 | ED_ITS ---
<Statement entered by Michelle Capps MD - 04/17/24 16:16> I was consulted by the [facility]ON[facility], and we discussed the complexity of problems being addressed. I approved the treatment and management plan for this patient's care in the emergency department, thus performing a substantial portion of the medical decision making. I evaluated the patient, he is resting comfortably and breathing well with reassuring cardiopulmonary exam at this time. Patient appears to have COPD exacerbation. Troponin reassuring given patient's duration of symptoms, serial troponin not indicated. He is appropriate for discharge with outpatient management Michelle Capps MD Discharge Plan Disposition Patient Disposition: Home, Self-Care Condition: Good Prescriptions Prescriptions: New prednisone 50 mg tablet 50 mg PO DAILY 5 Days Qty: 5 0RF No Action Entresto 24-26 mg tablet 2 tab PO ONCE Patient Comments: TAKE ONE TABLET BY MOUTH TWICE DAILY FOR congestive heart failure ipratropium-albuterol 0.5 mg-3 mg(2.5 mg base)/3 mL solution for nebulization 3 ml IH QID PRN (Reason: shortness of breath or wheezing) Qty: 180 2RF tizanidine 4 mg tablet 4 mg PO DAILY Patient Comments: TAKE 1 AND 1/2 TABLET BY MOUTH THREE TIMES DAILY MAY CAUSE DROWSINESS oxycodone 10 mg tablet 10 mg PO Q4H MDD No >5 per day PRN (Reason: pain) Qty: 150 0RF oxycodone 10 mg tablet 10 mg PO Q4H MDD No>5 per day PRN (Reason: pain) Qty: 150 0RF aspirin 81 mg tablet,delayed release (DR/EC) 81 mg PO DAILY 90 Days Qty: 90 4RF gabapentin 800 mg tablet 800 mg PO TID Qty: 90 2RF carvedilol 3.125 mg tablet See Rx Instructions .ROUTE .COMPLEX Qty: 180 3RF Dose Instruction: TAKE ONE TABLET BY MOUTH TWICE DAILY FOR HIGH blood pressure Rx Instructions: TAKE ONE TABLET BY MOUTH TWICE DAILY FOR HIGH blood pressure duloxetine 60 mg capsule,delayed release(DR/EC) See Rx Instructions .ROUTE .COMPLEX Qty: 180 0RF Dose Instruction: TAKE ONE CAPSULE BY MOUTH TWICE DAILY Rx Instructions: TAKE ONE CAPSULE BY MOUTH TWICE DAILY Stiolto Respimat 2.5-2.5 mcg/actuation mist 2 puff inhalation DAILY 90 Days Qty: 4 2RF atorvastatin 20 mg tablet 20 mg PO HS Patient Comments: TAKE ONE TABLET BY MOUTH EVERY DAY albuterol sulfate 90 mcg/actuation HFA aerosol inhaler 2 inh INHALATION QIDP PRN (Reason: Shortness Of Breath Or Wheezing) Patient Comments: INHALE TWO PUFFS BY MOUTH FOUR TIMES DAILY NEEDED FOR SHORTNESS OF BREATH OR wheezing Stiolto Respimat 2.5-2.5 mcg/actuation mist 2 inh INHALATION DAILY Patient Comments: INHALE TWO PUFFS BY MOUTH EVERY DAY multivitamin Tablet 1 tab PO DAILY Patient Comments: TAKE ONE TABLET BY MOUTH EVERY DAY Referrals Follow up/Referrals: Vikas Rizo DO [Primary Care Provider] - See instructions Activity Restrictions/Add. Instructions Additional Instructions/Restrictions: Follow-up with your PCP in 48 hours for recheck. Take all of your steroids as prescribed. Return to the ER for any worsening signs or symptoms as needed. Clinical Impressions Clinical Impression: COPD exacerbation Instructions Patient Instructions: DI for Chronic Obstructive Pulmonary Disease Print Language Print Language: Welsh Discharge ED Provider: Michelle Capps HPI <MATT Brown - Last Filed: 04/17/24 16:06> General Chief Complaint: Shortness of Breath/Dyspnea Stated Complaint: soa Time Seen by Provider: 04/17/24 14:04 Mode of Arrival: Ambulatory Source of Information: Patient Limitations: No Limitations Description of Symptoms (Recalled from ER Triage Doc. by RN): Patient complaint of increased shortness of breath that started approx 10 am this morning. History of Present Illness HPI narrative: Patient presents for evaluation of dyspnea. Patient has a longstanding history of COPD with occasional intermittent oxygen. However patient states that he quit 7 to 8 months ago smoking and since that time has only intermittently needed oxygen. He reports last time he needed it was approximately 3 weeks ago. Today he noticed that he was extremely fatigued and dyspneic and was unable to ambulate without getting short of breath. He denies any fever chills hemoptysis hematochezia melena nausea vomiting diarrhea. Related Data Home Medications ?Medication ?Instructions ?Recorded ?Confirmed albuterol sulfate 90 mcg/actuation 2 inh inhalation QIDP PRN 11/05/23 04/13/24 aerosol inhaler Shortness Of Breath Or Wheezing atorvastatin 20 mg tablet 20 mg PO HS 11/05/23 04/13/24 multivitamin 1 tab PO DAILY 11/05/23 04/13/24 tiotropium 2.5 mcg-olodaterol 2.5 2 inh inhalation DAILY 11/05/23 04/13/24 mcg/actuation mist for inhalation (Stiolto Respimat) sacubitril 24 mg-valsartan 26 mg 2 tab PO ONCE 11/28/23 04/13/24 tablet (Entresto) tizanidine 4 mg tablet 4 mg PO DAILY 02/26/24 04/13/24 Previous Rx's ?Medication ?Instructions ?Recorded carvedilol 3.125 mg tablet See Rx Instructions .Route 11/27/23 .COMPLEX #180 tabs duloxetine 60 mg capsule,delayed See Rx Instructions .Route 12/04/23 release .COMPLEX #180 caps tiotropium 2.5 mcg-olodaterol 2.5 2 puff inhalation DAILY 90 days #4 02/24/24 mcg/actuation mist for inhalation grams (Stiolto Respimat) ipratropium 0.5 mg-albuterol 3 mg 3 ml inhalation QID PRN shortness 04/08/24 (2.5 mg base)/3 mL nebulization of breath or wheezing #180 mL soln aspirin 81 mg tablet,delayed 81 mg PO DAILY 90 days #90 tabs 04/13/24 release gabapentin 800 mg tablet 800 mg PO TID #90 tabs 04/13/24 oxycodone 10 mg tablet 10 mg PO Q4H PRN pain #150 tabs 04/13/24 oxycodone 10 mg tablet 10 mg PO Q4H PRN pain #150 tabs 04/13/24 prednisone 50 mg tablet 50 mg PO DAILY 5 days #5 tabs 04/17/24 Allergies Allergy/AdvReac Type Severity Reaction Status Date / Time methocarbamol [From ROBAXIN] Allergy Unknown Shakiness Verified 04/13/24 12:59 pregabalin [From LYRICA] Allergy Unknown Shakiness Verified 04/13/24 12:59 methadone Allergy Difficulty Verified 04/13/24 12:59 Breathing ibuprofen AdvReac Cramping Verified 04/13/24 12:59 of the Muscles REPLACED BY [facility] <MATT Brown - Last Filed: 04/17/24 16:06> REPLACED BY [facility] Disclaimer: The information contained in this section may have been updated after the patient was seen, as this information can be updated by other users. Medical History Solid nodule of lung greater than 8 mm in diameter COPD mixed type Nodule of left lung SIRS (systemic inflammatory response syndrome) Acute and chronic respiratory failure with hypoxia Postherpetic trigeminal neuralgia Encounter for screening for malignant neoplasm of lung in current smoker with 30 pack year history or greater Abnormal screening computed tomography (CT) of chest Nonischemic cardiomyopathy Diastolic dysfunction Elevated left ventricular end-diastolic pressure (LVEDP) Non-STEMI (non-ST elevated myocardial infarction) Emphysema/COPD Pneumonia due to gram-negative bacteria Low body mass index (BMI) COPD (chronic obstructive pulmonary disease) with acute bronchitis Upper respiratory infection Rhinovirus infection HLD (hyperlipidemia) Tobacco dependence syndrome Chest pain Cardiomyopathy Preoperative clearance Poisoning by opiate or related narcotic Atypical pneumonia Postherpetic neuralgia Left against medical advice HTN (hypertension) Elevated C-reactive protein CAP (community acquired pneumonia) COPD (chronic obstructive pulmonary disease) Pain, eye, right Herpes zoster ophthalmicus, right eye Eye pain Shingles Neuropathy Surgical History H/O cervical spine surgery H/O cardiac catheterization Family History Mother Lung cancer Family history of acute congestive heart failure Father Lung cancer Family history of acute congestive heart failure Social History Smoking Status: Former smoker tobacco type: cigarettes packs per day: 1 smoking status stop date: december 2021 second hand exposure: Yes alcohol intake: current alcohol intake frequency: holidays/special occasions only substance use type: denies use current occupational status: disabled Travel in the last 8 weeks: None household members: children housing: house marital status: current occupational exposures/hazards: No pets and animals: No caffeine: Yes Other Medical History Have you received the Flu Vaccine for this season: No Have you received the Pneumonia Vaccine: Yes <MATT Brown - Last Filed: 04/17/24 16:06> ROS Obtained: Yes Systems reviewed as appropriate & no additional complaints except as documented Physical Exam <MATT Brown - Last Filed: 04/17/24 16:06> General General appearance: alert and in no apparent distress Respiratory Respiratory exam: Present wheezes; Absent normal lung sounds bilaterally, respiratory distress or accessory muscle use Cardiovascular Cardiovascular exam: Present regular rate Neurological Exam Neurological exam: Present alert and oriented X3 HEART Score <MATT Brown - Last Filed: 04/17/24 16:06> HEART Score HEART Score assessment performed?: Yes History (anamnesis): Slightly suspicious ECG: Non-specific disturbance Age: >65 years Risk factors: 3 or more risk factors Troponin: </= normal limit HEART Score: 5 Critical Care <MATT Brown - Last Filed: 04/17/24 16:06> Critical Care Time Critical Care Time: No Medical Decision Making <MATT Brown - Last Filed: 04/17/24 16:06> Medical Records Medical records reviewed: Yes I reviewed the patient's medical records. Marck Inquiry Pt receiving controlled substance: No Vital Signs Vital Signs: 04/17/24 13:48 04/17/24 14:36 04/17/24 15:00 Temperature 97.9 F Temperature Source Oral Pulse Rate 68 68 Pulse Rate [Radial] 76 Respiratory Rate 20 22 23 Blood Pressure 115/67 113/71 Blood Pressure [Right Arm] 144/80 H Blood Pressure Mean 83 Blood Pressure Mean [Right Arm] 101 Blood Pressure Source [Right Arm] Automatic Cuff Blood Pressure Position [Right Arm] Sitting 02 Sat by Pulse Oximetry 96 93 L 100 Oxygen Delivery Method Room Air 04/17/24 15:25 04/17/24 15:30 Temperature Temperature Source Pulse Rate 67 Pulse Rate [Radial] Respiratory Rate 16 16 Blood Pressure 140/65 140/66 Blood Pressure [Right Arm] Blood Pressure Mean Blood Pressure Mean [Right Arm] Blood Pressure Source [Right Arm] Blood Pressure Position [Right Arm] 02 Sat by Pulse Oximetry 99 Oxygen Delivery Method Lab Data Lab results reviewed: Yes I reviewed the patient's lab results. Labs: Lab Results 04/17/24 14:26: VBG pH 7.37, VBG pCO2 51.6 H, VBG pO2 31.8, VBG HCO3 29.2, VBG Total CO2 30.8 H, VBG O2 Saturation 62.2, VBG Base Excess 4.0 H, VBG Lactic Acid 1.0 04/17/24 14:38: WBC 8.1, RBC 3.99 L, Hgb 11.8 L, Hct 36.7 L, MCV 92.0, MCH 29.6, MCHC 32.2, RDW 15.9, Plt Count 407, MPV 7.2 L, Neut % (Auto) 64.1, Lymph % (Auto) 25.0, Randall % (Auto) 5.9, Eos % (Auto) 3.8, Baso % (Auto) 1.2, Neut # (Auto) 5.2, Lymph # (Auto) 2.0, Randall # (Auto) 0.5, Eos # (Auto) 0.3, Baso # (Auto) 0.1, PT 10.9, INR 0.97, D-Dimer 0.63 H, Sodium 137, Potassium 4.0, Chloride 102, Carbon Dioxide 28, Anion Gap 11.0, BUN 13, Creatinine 0.70, Estimated Creat Clear 59, Estimated GFR 113, Est GFR ( Amer) 137, Glucose 97, Calcium 8.9, Total Bilirubin 0.7, AST 30, ALT 25, Alkaline Phosphatase 70, Troponin I < 0.01, NT-Pro-B Natriuret Pep 121, Total Protein 6.9, Albumin 3.9, Globulin 3.0, Albumin/Globulin Ratio 1.3, HIV 1&2 Antibody Rapid Nonreactive 04/17/24 14:38 04/17/24 14:38 Response Orders (Tests/Meds): ED MEDICATIONS Discontinued Medications Generic Name Dose Route Start Last Admin Trade Name Freq PRN Reason Stop Dose Admin Acetaminophen 1,000 mg 04/17/24 14:23 04/17/24 14:50 Acetaminophen 500mg Tab PO 04/17/24 14:24 1,000 mg ONCE ONE Administration Albuterol/Ipratropium 9 ml 04/17/24 14:23 04/17/24 14:50 Ipratropium/Albuterol 3 Ml Neb IH 04/17/24 14:24 9 ml ONCE ONE Administration Methylprednisolone Sodium Succinate 125 mg 04/17/24 14:23 04/17/24 14:50 Methylprednisolone Sod Succ 125mg Vial IV 04/17/24 14:24 125 mg ONCE ONE Administration ORDERS Category Date Time Status XR chest portable Stat Exams 04/17/24 14:23 Completed BNP [NT Pro Brain Natriuretic Pep.] Stat Lab 04/17/24 14:38 Completed CBC w/Auto Diff [Complete Blood Count Auto Diff] Stat Lab 04/17/24 14:38 Completed CMP [Comprehensive Metabolic Panel] Stat Lab 04/17/24 14:38 Completed D-Dimer Stat Lab 04/17/24 14:38 Completed Full Resp Panel w/COVID (H) Routine Lab 04/17/24 14:57 Received HIV (1&2) Antibody Rapid Stat Lab 04/17/24 14:38 Completed Hep C Ab with Reflex to RNA Stat Lab 04/17/24 14:38 Received INR [Prothrombin Time INR] Stat Lab 04/17/24 14:38 Completed Trop I [Troponin I] Stat Lab 04/17/24 14:38 Completed Troponin I Q3H Lab 04/17/24 17:30 Ordered Troponin I Q3H Lab 04/17/24 20:30 Ordered VBG [Venous Blood Gas] Stat RT 04/17/24 14:26 Completed MDM Narrative Medical Decision Narrative: In summary patient is a 63-year-old male who presents to the emergency department for evaluation of dyspnea on exertion and hypoxia. Patient is hemodynamically stable upon arrival, afebrile. Physical exam is remarkable for end expiratory wheezes in all 4 bui with diminished breath sounds at the bases however there is no increased work of breathing tachypnea or accessory muscle use. There is no dependent edema, heart sounds are normal patient is in a normal sinus rhythm on the bedside monitor satting at 95% on room air currently. Patient reports he took his oxygen saturation at home and it was 85% and he self-administered his oxygen but felt no subjectively better so he presented to the ER for evaluation. Differential diagnosis includes COPD exacerbation versus CHF exacerbation versus acute viral bacterial infection etc. Initial workup will be conducted with hematologic labs twelve-lead EKG plain film chest x-ray. Initial interventions include Solu-Medrol DuoNeb acetaminophen p.o. Initial workup reviewed by me shows that his age-adjusted D- dimer is normal, with the remainder of his hematologic labs being nonactionable, VBG shows preserved pH with only slightly elevated pCO2 of 51 and my informal interpretation of his plain film chest x-ray shows no acute processes. Upon repeat evaluation patient reported significant improvement after steroids and breathing treatment. Given this patient is appropriate for discharge with a prescription for prednisone and follow-up with his PCP within 48 hours and strict return precautions. <Sophia Awan, DO - Last Filed: 04/17/24 14:59> Vital Signs Vital Signs: 04/17/24 13:48 04/17/24 14:36 04/17/24 15:00 Temperature 97.9 F Temperature Source Oral Pulse Rate 68 68 Pulse Rate [Radial] 76 Respiratory Rate 20 22 23 Blood Pressure 115/67 113/71 Blood Pressure [Right Arm] 144/80 H Blood Pressure Mean 83 Blood Pressure Mean [Right Arm] 101 Blood Pressure Source [Right Arm] Automatic Cuff Blood Pressure Position [Right Arm] Sitting 02 Sat by Pulse Oximetry 96 93 L 100 Oxygen Delivery Method Room Air 04/17/24 15:25 04/17/24 15:30 Temperature Temperature Source Pulse Rate 67 Pulse Rate [Radial] Respiratory Rate 16 16 Blood Pressure 140/65 140/66 Blood Pressure [Right Arm] Blood Pressure Mean Blood Pressure Mean [Right Arm] Blood Pressure Source [Right Arm] Blood Pressure Position [Right Arm] 02 Sat by Pulse Oximetry 99 Oxygen Delivery Method Lab Data Labs: Lab Results 04/17/24 14:26: VBG pH 7.37, VBG pCO2 51.6 H, VBG pO2 31.8, VBG HCO3 29.2, VBG Total CO2 30.8 H, VBG O2 Saturation 62.2, VBG Base Excess 4.0 H, VBG Lactic Acid 1.0 04/17/24 14:38: WBC 8.1, RBC 3.99 L, Hgb 11.8 L, Hct 36.7 L, MCV 92.0, MCH 29.6, MCHC 32.2, RDW 15.9, Plt Count 407, MPV 7.2 L, Neut % (Auto) 64.1, Lymph % (Auto) 25.0, Randall % (Auto) 5.9, Eos % (Auto) 3.8, Baso % (Auto) 1.2, Neut # (Auto) 5.2, Lymph # (Auto) 2.0, Randall # (Auto) 0.5, Eos # (Auto) 0.3, Baso # (Auto) 0.1, PT 10.9, INR 0.97, D-Dimer 0.63 H, Sodium 137, Potassium 4.0, Chloride 102, Carbon Dioxide 28, Anion Gap 11.0, BUN 13, Creatinine 0.70, Estimated Creat Clear 59, Estimated GFR 113, Est GFR ( Amer) 137, Glucose 97, Calcium 8.9, Total Bilirubin 0.7, AST 30, ALT 25, Alkaline Phosphatase 70, Troponin I < 0.01, NT-Pro-B Natriuret Pep 121, Total Protein 6.9, Albumin 3.9, Globulin 3.0, Albumin/Globulin Ratio 1.3, HIV 1&2 Antibody Rapid Nonreactive Response Orders (Tests/Meds): ED MEDICATIONS Discontinued Medications Generic Name Dose Route Start Last Admin Trade Name Freq PRN Reason Stop Dose Admin Acetaminophen 1,000 mg 04/17/24 14:23 04/17/24 14:50 Acetaminophen 500mg Tab PO 04/17/24 14:24 1,000 mg ONCE ONE Administration Albuterol/Ipratropium 9 ml 04/17/24 14:23 04/17/24 14:50 Ipratropium/Albuterol 3 Ml Neb IH 04/17/24 14:24 9 ml ONCE ONE Administration Methylprednisolone Sodium Succinate 125 mg 04/17/24 14:23 04/17/24 14:50 Methylprednisolone Sod Succ 125mg Vial IV 04/17/24 14:24 125 mg ONCE ONE Administration ORDERS Category Date Time Status XR chest portable Stat Exams 04/17/24 14:23 Completed BNP [NT Pro Brain Natriuretic Pep.] Stat Lab 04/17/24 14:38 Completed CBC w/Auto Diff [Complete Blood Count Auto Diff] Stat Lab 04/17/24 14:38 Completed CMP [Comprehensive Metabolic Panel] Stat Lab 04/17/24 14:38 Completed D-Dimer Stat Lab 04/17/24 14:38 Completed Full Resp Panel w/COVID ([facility]) Routine Lab 04/17/24 14:57 Received HIV (1&2) Antibody Rapid Stat Lab 04/17/24 14:38 Completed Hep C Ab with Reflex to RNA Stat Lab 04/17/24 14:38 Received INR [Prothrombin Time INR] Stat Lab 04/17/24 14:38 Completed Trop I [Troponin I] Stat Lab 04/17/24 14:38 Completed Troponin I Q3H Lab 04/17/24 17:30 Ordered Troponin I Q3H Lab 04/17/24 20:30 Ordered VBG [Venous Blood Gas] Stat RT 04/17/24 14:26 Completed ECG Data Tracing #1: Attestation: I reviewed this ECG and interpreted as documented below: ECG Narrative: Normal sinus rhythm with a ventricular rate of 73 bpm. Occasional PVC complexes. No acute ST changes concerning for ischemia. ECG initial impression date: 04/17/24 ECG initial impression time: 13:56
--- NOTE | 2024-04-17 14:23 | XR_ITS ---
PROCEDURE INFORMATION: Exam: XR Chest Exam date and time: 04/17/2024 2:37 PM Age: 63 years old Clinical indication: Dyspnea TECHNIQUE: Imaging protocol: Radiologic exam of the chest. Views: 1 view. COMPARISON: CT CHEST WO CON 03/31/2024 2:50 PM FINDINGS: Lungs: Lungs are hyperinflated consistent with COPD. There are no infiltrates or overt CHF. Pleural spaces: Unremarkable. No pleural effusion. No pneumothorax. Heart/Mediastinum: Unremarkable. No cardiomegaly. Bones/joints: Unremarkable for age. IMPRESSION: COPD otherwise negative chest.
[2024-04-17 14:36] VITALS: BP 115/67; PULSE 68; RESP 22; O2SAT 93
[2024-04-17 14:46] LABS: Basophils # 0.1 K/mm3 (0-0.2); Basophils % 1.2 % (0.1-2.0); Eosinophils # 0.3 K/mm3 (0.0-0.4); Eosinophils % 3.8 % (0.1-12.0); Hematocrit 36.7 % (42.0-52.0); Hemoglobin 11.8 g/dL (14.1-18.0); Mean Corpuscular HGB Conc 32.2 g/dL (31.8-35.4); Mean Corpuscular Hemoglobin 29.6 pg (27.0-31.2); Mean Platelet Volume 7.2 fl (7.4-10.4); Monocytes # 0.5 K/mm3 (0.1-1.0); Monocytes % 5.9 % (1.7-9.3); Neutrophils # 5.2 K/mm3 (1.8-7.8); Neutrophils % 64.1 % (37.0-80.0); Platelet Count 407 K/mm3 (142-424); Red Blood Count 3.99 M/mm3 (4.60-6.20); Red Cell Distribution Width 15.9 % (11.5-17.5); White Blood Count 8.1 K/mm3 (4.8-10.8)
[2024-04-17] MEDS: IPRATROPIUM/ALBUTEROL 3 ML NEB 9 ML IH (14:50)
[2024-04-17] MEDS: METHYLPREDNISOLONE SOD SUCC 125MG VIAL 125 MG IV (14:50)
[2024-04-17] MEDS: ACETAMINOPHEN 500MG TAB 1000 MG PO (14:50)
[2024-04-17 15:00] VITALS: BP 113/71; PULSE 68; RESP 23; O2SAT 100
[2024-04-17 15:00] LABS: Adenovirus,PCR Not Detected (NotDetected); Bordetella Pertussis Not Detected (NotDetected); Chlamydophila Pneumoniae, PCR Not Detected (NotDetected); Coronavirus 19, PCR Not Detected (NotDetected); Coronavirus 229E Not Detected (NotDetected); Coronavirus NL63 Not Detected (NotDetected); Coronavirus OC43 Not Detected (NotDetected); Coronovirus HKU1,PCR Not Detected (NotDetected); Human Metapneumovirus Not Detected (NotDetected); Influenza A, PCR Not Detected (NotDetected); Influenza AH1, 2009 Not Detected (NotDetected); Influenza AH1, PCR Not Detected (NotDetected); Influenza AH3,PCR Not Detected (NotDetected); Influenza B, PCR Not Detected (NotDetected); Mycoplasma Pneumoniae, PCR Not Detected (NotDetected); Parainfluenza 1, PCR Not Detected (NotDetected); Parainfluenza 2, PCR Not Detected (NotDetected); Parainfluenza 3, PCR Not Detected (NotDetected); Parainfluenza 4, PCR Not Detected (NotDetected); Respiratory Syncytial Virus Not Detected (NotDetected); Rhinovirus/Enterovirus Not Detected (NotDetected)
[2024-04-17 15:01] LABS: INR 0.97 (0.9-1.1); Prothrombin Time 10.9 seconds (10.1-12.5)
[2024-04-17 15:22] LABS: D-Dimer 0.63 ug/mL (0.0-0.5)
[2024-04-17 15:25] VITALS: BP 140/65; PULSE 67; RESP 16; O2SAT 99
[2024-04-17 15:26] LABS: VBG HCO3 29.2 mmol/L (23-30); VBG Oxygen Saturation 62.2 % (50-70); VBG PCO2 51.6 mmol/L (35-51); VBG PH 7.37 mmol/L (7.31-7.41); VBG PO2 31.8 mmol/L (28-40); VBG Total CO2 30.8 mmol/L (23-27)
[2024-04-17 15:30] VITALS: BP 140/66; RESP 16
[2024-04-17 15:36] LABS: HIV (1&2) Antibody Rapid NONREACTIVE (NONREACTIVE)
[2024-04-17 15:38] LABS: Alanine Aminotransferase 25 U/L (12-78); Albumin Level 3.9 g/dl (3.5-5.0); Albumin/Globulin Ratio 1.3 (1.1-1.8); Alkaline Phosphatase 70 U/L (38-126); Aspartate Amino Transferase 30 U/L (17-59); Bilirubin,Total 0.7 mg/dl (0.2-1.3); Blood Urea Nitrogen 13 mg/dl (9-20); Calcium 8.9 mg/dl (8.4-10.2); Carbon Dioxide 28 mmol/L (22.0-30.0); Chloride 102 mmol/L (98-107); Creatinine Clearance Estimated 59 mL/min (50-200); Estimated Glomerular Filt Rate 113 ml/min (>60); GFR (African American) 137 ML/MIN (>60); Glucose 97 mg/dl (74-100); Sodium 137 mmol/L (136-145); Total Protein,Serum 6.9 g/dl (6.3-8.2)
[2024-04-17 15:50] LABS: NT Pro Brain Natriuretic Pep. 121 pg/mL (0-125)
[2024-04-17 15:52] LABS: Troponin I < 0.01 ng/ml (0.00-0.034)
[2024-04-17 16:04] VITALS: BP 133/66; PULSE 63; RESP 16; TEMP 36.9; O2SAT 98
[2024-04-18 05:11] LABS: HCV Ab Non Reactive (Non Reactive)
== END 2024-04-17 16:09 | disposition home or self-care (01) ==
PROVIDERS: Physician Assistant; Emergency Provider Emergency Medicine; PCP Internal Medicine
DX: J44.1 Chronic obstructive pulmonary disease with (acute) exacerbation (principal); R06.02 Shortness of breath; R06.00 Dyspnea, unspecified; R53.83 Other fatigue; Z87.891 Personal history of nicotine dependence
CPT/HCPCS: 71045; 80053; 82803; 83880; 84484; 85025; 85378; 85610; 86803; 87265; 87389; 87486; 87581; 87632; 87635; 93005; 96374; 99284; J2919; J7620

== ENCOUNTER 2024-07-12 09:00 | Emergency (ER) | payer MEDICARE, MEDICAID, SELFPAY ==
[2024-07-12] VITALS (7 sets, daily range): BP systolic 90–113; BP diastolic 53–65; PULSE 66–72; RESP 9–25; TEMP 36.8–37; O2SAT 89–100; BMI 15.4
--- NOTE | 2024-07-12 09:02 | ECG_ITS ---
APPROVED REPORT Exam: Resting ECG HR:69 bpm ECG Measurements Heart Rate 69 AXES MI 116 P 80 QRSd 88 QRS 82 QT 392 T 79 QTc 411 Conclusion SINUS RHYTHM WITH SHORT MI INTERVAL BORDERLINE ECG Electronically signed by : NATALYA GRIFFIN, 07/13/2024 22:09:00
--- NOTE | 2024-07-12 09:13 | XR_ITS ---
PROCEDURE INFORMATION: Exam: XR Chest Exam date and time: 07/12/2024 9:18 AM Age: 63 years old Clinical indication: Other: Chest pain TECHNIQUE: Imaging protocol: Radiologic exam of the chest. Views: 1 view. COMPARISON: CR XR CHEST PORTABLE 04/17/2024 2:37 PM FINDINGS: Lungs: Hyperinflated lungs. Underlying emphysema. Patchy infiltrate in the right lower lobe. Pleural spaces: Unremarkable. No pleural effusion. No pneumothorax. Heart/Mediastinum: Unremarkable. No cardiomegaly. Bones/joints: Healed rib fracture deformities. IMPRESSION: Hyperinflated lungs with underlying emphysema. Patchy infiltrate in the right lower lobe
--- NOTE | 2024-07-12 09:17 | PC.NURSE ---
XR AT BEDSIDE
[2024-07-12] MEDS: ASPIRIN 81MG CHEWABLE TABLET 324 MG PO (09:20)
[2024-07-12 09:25] LABS: Basophils # 0.1 K/mm3 (0-0.2); Basophils % 0.6 % (0.1-2.0); Eosinophils # 0.3 K/mm3 (0.0-0.4); Eosinophils % 2.4 % (0.1-12.0); Hematocrit 34.4 % (42.0-52.0); Hemoglobin 10.6 g/dL (14.1-18.0); Lymphocytes # 1.9 K/mm3 (0.7-4.5); Lymphocytes % 18.3 % (10-50); Mean Corpuscular HGB Conc 30.8 g/dL (31.8-35.4); Mean Corpuscular Hemoglobin 27.7 pg (27.0-31.2); Mean Corpuscular Volume 89.8 fl (80-94); Mean Platelet Volume 8.8 fl (7.4-10.4); Monocytes # 1.1 K/mm3 (0.1-1.0); Neutrophils # 6.9 K/mm3 (1.8-7.8); Neutrophils % 67.4 % (37.0-80.0); Platelet Count 391 K/mm3 (142-424); Red Blood Count 3.83 M/mm3 (4.60-6.20); White Blood Count 10.3 K/mm3 (4.8-10.8)
[2024-07-12 09:25] LABS: Lactate Venous 0.7 mmol/L (0.4-2.0); VBG Base Excess 4.3 mmol/L (-2.4-2.3); VBG HCO3 30.5 mmol/L (23-30); VBG Oxygen Saturation 51.7 % (50-70); VBG PCO2 61.4 mmol/L (35-51); VBG PH 7.31 mmol/L (7.31-7.41); VBG PO2 30.8 mmol/L (28-40); VBG Total CO2 32.4 mmol/L (23-27)
[2024-07-12 09:27] LABS: Coronavirus 19, PCR Not Detected (NotDetected); Influenza A, PCR Not Detected (NotDetected); Influenza B, PCR Not Detected (NotDetected)
[2024-07-12 09:32] LABS: Chloride 99 mmol/L (98-107)
[2024-07-12 09:33] LABS: Albumin Level 3.7 g/dl (3.5-5.0); Potassium 3.9 mmoL/L (3.5-5.1); Sodium 139 mmol/L (136-145)
[2024-07-12 09:35] LABS: Alanine Aminotransferase 17 U/L (12-78); Aspartate Amino Transferase 20 U/L (17-59); Blood Urea Nitrogen 22 mg/dl (9-20); Creatinine Clearance Estimated 57 mL/min (50-200); Estimated Glomerular Filt Rate 113 ml/min (>60); GFR (African American) 137 ML/MIN (>60)
[2024-07-12] MEDS: IPRATROPIUM/ALBUTEROL 3 ML NEB 9 ML IH (09:35)
[2024-07-12 09:36] LABS: Alkaline Phosphatase 111 U/L (38-126); Anion Gap 10.9 mEq/L (5-15); Bilirubin,Total 0.4 mg/dl (0.2-1.3); Calcium 8.9 mg/dl (8.4-10.2); Carbon Dioxide 33 mmol/L (22.0-30.0); Globulin 3.6 g/dL (1.3-3.2); Glucose 93 mg/dl (74-100); Total Protein,Serum 7.3 g/dl (6.3-8.2)
[2024-07-12] MEDS: METHYLPREDNISOLONE SOD SUCC 125MG VIAL 125 MG IV (09:36)
--- NOTE | 2024-07-12 09:42 | PC.NURSE ---
DR FRANKEL AT BEDSIDE
[2024-07-12 09:45] LABS: NT Pro Brain Natriuretic Pep. 200 pg/mL (0-125)
[2024-07-12 09:48] LABS: Troponin I < 0.01 ng/ml (0.00-0.034)
--- NOTE | 2024-07-12 09:59 | ED_ITS ---
Discharge Plan Disposition Patient Disposition: Home, Self-Care Prescriptions Prescriptions: New doxycycline monohydrate 100 mg capsule 100 mg PO BID 5 Days Qty: 10 0RF azithromycin 500 mg tablet 500 mg PO DAILY 2 Days Qty: 2 0RF Rx Instructions: start on day 2 of therapy prednisone 20 mg tablet 40 mg PO DAILY 5 Days Qty: 10 0RF No Action aspirin 81 mg tablet,delayed release (DR/EC) 81 mg PO DAILY 90 Days Qty: 90 4RF ipratropium-albuterol 0.5 mg-3 mg(2.5 mg base)/3 mL solution for nebulization 3 ml IH QID PRN (Reason: shortness of breath or wheezing) Qty: 180 2RF Stiolto Respimat 2.5-2.5 mcg/actuation mist 2 puff inhalation DAILY 90 Days Qty: 4 2RF duloxetine 60 mg capsule,delayed release(DR/EC) 60 mg PO DAILY 90 Days Qty: 90 3RF oxycodone 10 mg tablet 10 mg PO Q4H MDD No>5 per day PRN (Reason: pain) Qty: 150 0RF tizanidine 4 mg tablet 6 mg PO DAILY PRN (Reason: muscle spasticity) 90 Days Qty: 90 3RF gabapentin 800 mg tablet See Rx Instructions .ROUTE .COMPLEX Qty: 90 0RF Dose Instruction: TAKE 1 TABLET BY MOUTH THREE TIMES DAILY MAY CAUSE DROWSINESS Rx Instructions: TAKE 1 TABLET BY MOUTH THREE TIMES DAILY MAY CAUSE DROWSINESS oxycodone 10 mg tablet 10 mg PO Q4H MDD No >5 per day PRN (Reason: pain) Qty: 150 0RF carvedilol 3.125 mg tablet See Rx Instructions .ROUTE .COMPLEX Qty: 180 3RF Dose Instruction: TAKE ONE TABLET BY MOUTH TWICE DAILY FOR HIGH blood pressure Rx Instructions: TAKE ONE TABLET BY MOUTH TWICE DAILY FOR HIGH blood pressure sacubitril-valsartan [Entresto] 24-26 mg tablet 1 tab PO BID Qty: 60 5RF atorvastatin 20 mg tablet 20 mg PO HS Qty: 90 0RF albuterol sulfate 90 mcg/actuation HFA aerosol inhaler 2 inh INHALATION QIDP PRN (Reason: Shortness Of Breath Or Wheezing) Patient Comments: INHALE TWO PUFFS BY MOUTH FOUR TIMES DAILY NEEDED FOR SHORTNESS OF BREATH OR wheezing Stiolto Respimat 2.5-2.5 mcg/actuation mist 2 inh INHALATION DAILY Patient Comments: INHALE TWO PUFFS BY MOUTH EVERY DAY multivitamin Tablet 1 tab PO DAILY Patient Comments: TAKE ONE TABLET BY MOUTH EVERY DAY prednisone 50 mg tablet 50 mg PO DAILY 5 Days Qty: 5 0RF Referrals Follow up/Referrals: Vikas Rizo DO [Primary Care Provider] - See instructions Activity Restrictions/Add. Instructions Additional Instructions/Restrictions: Call your family doctor to establish care for this visit to the emergency department and schedule follow-up within 48 hours to ensure improvement. If you have any worsening of your condition or any other concerning signs or symptoms, return to the emergency department or your primary care doctor for further evaluation. Antibiotic (azithromycin) each morning for the next 2 days. Other antibiotic (doxycycline) twice daily for the next 5 days. Prednisone each morning with plenty of food and water for the next 5 days. Call cardiology to schedule follow-up if you continue having the symptoms after treatment of pneumonia. Clinical Impressions Clinical Impression: Right lower lobe pneumonia, Acute exacerbation of chronic obstructive pulmonary disease Print Language Print Language: Tristanian Discharge ED Provider: Steven Hewitt General Chief Complaint: Chest Pain Stated Complaint: chest pain Time Seen by Provider: 07/12/24 09:10 Mode of Arrival: Ambulatory Source of Information: Patient Limitations: No Limitations Description of Symptoms (Recalled from ER Triage Doc. by RN): pt comes in today for chest pain that started last night at 2200 got worse at 0300, pt compalins of soa and dizziness as well as radiation into right shoulder, pt had recent heart cath with dr otero History of Present Illness HPI narrative: Please note that above description of symptoms, in this electronic medical record under categorization of recalled from ER triage doctor by RN are reflective of an initial nursing assessment, however, is not reflective of my full history and physical exam that was personally taken and clarified. Consequentially, this preceding description of symptoms, which may include the patient's categorized chief complaint in the EMR, do not reflect my personal clinical impression, and the ultimate description of history of present illness and patient stated complaints should be deferred to this section of the note. Unless stated otherwise or congruent with this section of the note, additional signs, symptoms, or incongruence should be interpreted as inaccurate with my clinical impression. Related Data Home Medications ?Medication ?Instructions ?Recorded ?Confirmed albuterol sulfate 90 mcg/actuation 2 inh inhalation QIDP PRN 11/05/23 06/03/24 aerosol inhaler Shortness Of Breath Or Wheezing multivitamin 1 tab PO DAILY 11/05/23 06/03/24 tiotropium 2.5 mcg-olodaterol 2.5 2 inh inhalation DAILY 11/05/23 06/03/24 mcg/actuation mist for inhalation (Stiolto Respimat) Previous Rx's ?Medication ?Instructions ?Recorded aspirin 81 mg tablet,delayed 81 mg PO DAILY 90 days #90 tabs 04/13/24 release prednisone 50 mg tablet 50 mg PO DAILY 5 days #5 tabs 04/17/24 ipratropium 0.5 mg-albuterol 3 mg 3 ml inhalation QID PRN shortness 04/22/24 (2.5 mg base)/3 mL nebulization of breath or wheezing #180 mL soln tiotropium 2.5 mcg-olodaterol 2.5 2 puff inhalation DAILY 90 days #4 04/22/24 mcg/actuation mist for inhalation grams (Stiolto Respimat) duloxetine 60 mg capsule,delayed 60 mg PO DAILY 90 days #90 caps 04/23/24 release oxycodone 10 mg tablet 10 mg PO Q4H PRN pain #150 tabs 04/23/24 tizanidine 4 mg tablet 6 mg (1.5 x 4 mg) PO DAILY PRN 04/23/24 muscle spasticity 90 days #90 tabs gabapentin 800 mg tablet See Rx Instructions .Route 05/25/24 .COMPLEX #90 tabs oxycodone 10 mg tablet 10 mg PO Q4H PRN pain #150 tabs 05/25/24 carvedilol 3.125 mg tablet See Rx Instructions .Route 06/15/24 .COMPLEX #180 tabs sacubitril 24 mg-valsartan 26 mg 1 tab PO BID #60 tabs 06/15/24 tablet (Entresto) atorvastatin 20 mg tablet 20 mg PO HS #90 tabs 06/30/24 azithromycin 500 mg tablet 500 mg PO DAILY 2 days #2 tabs 07/12/24 doxycycline monohydrate 100 mg 100 mg PO BID 5 days #10 caps 07/12/24 capsule prednisone 20 mg tablet 40 mg (2 x 20 mg) PO DAILY 5 days 07/12/24 #10 tabs Allergies Allergy/AdvReac Type Severity Reaction Status Date / Time methocarbamol (From ROBAXIN) Allergy Unknown Shakiness Verified 06/03/24 13:28 pregabalin (From LYRICA) Allergy Unknown Shakiness Verified 06/03/24 13:28 methadone Allergy Difficulty Verified 06/03/24 13:28 Breathing ibuprofen AdvReac Cramping Verified 06/03/24 13:28 of the Muscles PFSH [facility] Disclaimer: The information contained in this section may have been updated after the patient was seen, as this information can be updated by other users. Medical History Solid nodule of lung greater than 8 mm in diameter COPD mixed type Nodule of left lung SIRS (systemic inflammatory response syndrome) Acute and chronic respiratory failure with hypoxia Postherpetic trigeminal neuralgia Encounter for screening for malignant neoplasm of lung in current smoker with 30 pack year history or greater Abnormal screening computed tomography (CT) of chest Nonischemic cardiomyopathy Diastolic dysfunction Elevated left ventricular end-diastolic pressure (LVEDP) Non-STEMI (non-ST elevated myocardial infarction) Emphysema/COPD Pneumonia due to gram-negative bacteria Low body mass index (BMI) COPD (chronic obstructive pulmonary disease) with acute bronchitis Upper respiratory infection Rhinovirus infection HLD (hyperlipidemia) Tobacco dependence syndrome Chest pain Cardiomyopathy Preoperative clearance Poisoning by opiate or related narcotic Atypical pneumonia Postherpetic neuralgia Left against medical advice HTN (hypertension) Elevated C-reactive protein CAP (community acquired pneumonia) COPD (chronic obstructive pulmonary disease) Pain, eye, right Herpes zoster ophthalmicus, right eye Eye pain Shingles Neuropathy Surgical History H/O cervical spine surgery H/O cardiac catheterization Family History Mother Lung cancer Family history of acute congestive heart failure Father Lung cancer Family history of acute congestive heart failure Social History Smoking Status: Former smoker tobacco type: cigarettes packs per day: 1 smoking status stop date: december 2021 second hand exposure: Yes alcohol intake: current alcohol intake frequency: holidays/special occasions only substance use type: denies use current occupational status: disabled Travel in the last 8 weeks: None household members: children housing: house marital status: current occupational exposures/hazards: No pets and animals: No caffeine: Yes Have you lived/traveled outside [place] in past 30 days?: No Contact w/someone who lives/traveled outside [place] past 30 days?: No Exposure to someone with infectious disease in past 14 days?: No Do you have a fever (greater than 100.4 F or 38 C)?: No Have you tested positive for COVID-19: No Exposed to someone with COVID-19 in past 14 days?: No Do you have a sore throat?: No Do you have a cough?: No Do you have any weakness?: No Do you have any diarrhea?: No Are you experiencing any unusual bleeding?: No Do you have any muscle aches/pain?: No Do you have any abdominal pain?: No Are you experiencing loss of taste or smell?: No Other Medical History Have you received the Flu Vaccine for this season: No Have you received the Pneumonia Vaccine: Yes ROS Obtained: Yes All systems reviewed & no additional complaints except as documented Physical Exam General General appearance: alert, in no apparent distress and cachectic Neck Neck exam: Present trachea midline Chest Chest inspection: Present normal inspection and symmetric chest wall rise Respiratory Respiratory exam: Present normal lung sounds bilaterally and wheezes (End expiratory wheezes bilaterally, quiet lung sounds on inferior lobes); Absent respiratory distress, stridor, accessory muscle use or prolonged expiratory phase Cardiovascular Cardiovascular exam: Present regular rate, normal rhythm and other (Pulses equal and symmetric in upper and lower extremities) Extremities Exam Extremities exam: Absent edema Neurological Exam Neurological exam: Present alert, oriented X3 and CN II-XII intact Skin Skin exam: Present warm and dry; Absent cyanosis, diaphoresis or pallor HEART Score HEART Score HEART Score assessment performed?: Yes History (anamnesis): Slightly suspicious ECG: Normal Age: 45-65 years Risk factors: 3 or more risk factors Troponin: </= normal limit HEART Score: 3 Critical Care Critical Care Time Critical Care Time: No Medical Decision Making Medical Records Medical records reviewed: Yes I reviewed the patient's medical records. Marck Inquiry Pt receiving controlled substance: No Marck was queried for this patient: No Vital Signs Vital Signs: 07/12/24 09:00 07/12/24 09:12 07/12/24 09:30 Temperature 98.6 F Temperature Source Oral Pulse Rate 70 68 Pulse Rate [Right Radial] 68 Respiratory Rate 22 17 Blood Pressure 99/56 L Blood Pressure [Right Arm] 113/61 Blood Pressure Mean [Right Arm] 78 02 Sat by Pulse Oximetry 95 95 Oxygen Delivery Method Room Air Room Air 07/12/24 10:00 07/12/24 10:30 Temperature Temperature Source Pulse Rate 66 Pulse Rate [Right Radial] Respiratory Rate 9 L 23 Blood Pressure 90/53 L 97/57 L Blood Pressure [Right Arm] Blood Pressure Mean [Right Arm] 02 Sat by Pulse Oximetry 100 89 L Oxygen Delivery Method Room Air Room Air Lab Data Labs: Lab Results 07/12/24 09:03: WBC 10.3, RBC 3.83 L, Hgb 10.6 L, Hct 34.4 L, MCV 89.8, MCH 27.7, MCHC 30.8 L, RDW 16.0, Plt Count 391, MPV 8.8, Neut % (Auto) 67.4, Lymph % (Auto) 18.3, [place] % (Auto) 11.0 H, Eos % (Auto) 2.4, Baso % (Auto) 0.6, Neut # (Auto) 6.9, Lymph # (Auto) 1.9, [place] # (Auto) 1.1 H, Eos # (Auto) 0.3, Baso # (Auto) 0.1, Sodium 139, Potassium 3.9, Chloride 99, Carbon Dioxide 33 H, Anion Gap 10.9, BUN 22 H, Creatinine 0.70, Estimated Creat Clear 57, Estimated GFR 113, Est GFR ( Amer) 137, Glucose 93, Calcium 8.9, Total Bilirubin 0.4, AST 20, ALT 17, Alkaline Phosphatase 111, Troponin I < 0.01, NT-Pro-B Natriuret Pep 200 H, Total Protein 7.3, Albumin 3.7, Globulin 3.6 H, Albumin/Globulin Ratio 1.0 L 07/12/24 09:18: VBG pH 7.31, VBG pCO2 61.4 H, VBG pO2 30.8, VBG HCO3 30.5 H, VBG Total CO2 32.4 H, VBG O2 Saturation 51.7, VBG Base Excess 4.3 H, VBG Lactic Acid 0.7 07/12/24 09:25: SARS-CoV-2 (PCR) Not detected, Influenza A Untype (PCR) Not detected, Influenza Type B (PCR) Not detected 07/12/24 09:03 07/12/24 09:03 Response Orders (Tests/Meds): ED MEDICATIONS Discontinued Medications Generic Name Dose Route Start Last Admin Trade Name Halina PRN Reason Stop Dose Admin Albuterol/Ipratropium 9 ml 07/12/24 09:30 07/12/24 09:35 Ipratropium/Albuterol 3 Ml Neb IH 07/12/24 09:31 9 ml ONCE ONE Administration Aspirin 324 mg 07/12/24 09:17 07/12/24 09:20 Aspirin 81mg Chewable Tablet PO 07/12/24 09:18 324 mg ONCE ONE Administration Ceftriaxone Sodium 2 gm/ 100 mls @ 200 mls/hr 07/12/24 10:24 07/12/24 10:30 Sodium Chloride IV 07/12/24 10:53 200 mls/hr ONCE ONE Administration Azithromycin 500 mg/ Sodium 250 mls @ 250 mls/hr 07/12/24 10:25 07/12/24 10:32 Chloride IV 07/12/24 10:26 250 mls/hr ONCE ONE Administration Methylprednisolone Sodium Succinate 125 mg 07/12/24 09:30 07/12/24 09:36 Methylprednisolone Sod Succ 125mg Vial IV 07/12/24 09:31 125 mg ONCE ONE Administration ORDERS Category Date Time Status CXR --portable [XR chest portable] Stat Exams 07/12/24 09:13 Completed Complete Blood Count Auto Diff Stat Lab 07/12/24 09:03 Completed Comprehensive Metabolic Panel Stat Lab 07/12/24 09:03 Completed NT Pro Brain Natriuretic Pep. Stat Lab 07/12/24 09:03 Completed Rapid PCR Covid and Flu A/B Stat Lab 07/12/24 09:25 Completed Troponin I Q3H Lab 07/12/24 12:15 Ordered Troponin I Q3H Lab 07/12/24 15:15 Ordered Troponin I Stat Lab 07/12/24 09:03 Completed VBG [Venous Blood Gas] Stat RT 07/12/24 09:18 Completed MDM Narrative Medical Decision Narrative: This is a 63-year-old male history of hypertension, hyperlipidemia, CAD, COPD not on home oxygen and not still smoking, presenting with chest pain and shortness of breath. Patient states that chest pain started last night 07/11 around 10 PM. Rolled over in bed, had chest pain and palpitations that did not radiate. Today throughout the day, states that he has been having shortness of breath, cough. Came in for further evaluation. Not currently having chest pain, but worried that he had a heart attack last night. History was obtained via conversation with patient. On arrival, patient hemodynamically stable, alert, oriented x4, appropriate, GCS 15, moving all extremities spontaneously, pupils equal and reactive to light. Full physical exam performed and significant for chronically ill-appearing male no acute distress. Speaking full sentences, he is diffusely bilaterally wheezy on end expiration. No inspiratory wheezes. He does have decreased breath sounds in inferior lobes anterior and posteriorly. Cardiac exam normal.. Differential includes COPD exacerbation, bronchitis, pneumonia, ACS, GA, CHF, among others. Patient was given DuoNebs, Solu-Medrol for symptomatic management and correction of underlying abnormalities. Patient placed on continuous cardiac monitoring and continuous pulse ox with initial blood pressure 113/61, heart rate 68, saturation 85% on room air. Independent interpretation of EKG shows sinus rhythm 69 bpm with DC interval 116, QRS 88, QTc 411. No obvious acute ischemic change. Normal axis. Workup independently interpreted and significant for nonactionable CBC or chemistry. Patient's VBG with what appears to be chronically elevated CO2 with acute worsening level of 61, but normal pH. On independent interpretation of imaging, patient has developing right lower lobe pneumonia. See radiology read for full review of final results. Ceftriaxone and azithromycin administered. Heart score 3. On reevaluation, patient's wheezes have improved. Still not having any chest pain. Given patient presentation, workup, history, this most likely represents right lower lobe pneumonia with associated COPD exacerbation. Because patient at baseline without signs or symptoms of clinical decompensation, deemed appropriate for discharge. Results were relayed to patient who voiced understanding and were agreeable to outpatient management and follow up. I discussed my clinical impression with patient and answered all questions. At this time, the evidence for any other entities in the differential is insufficient to warrant any further testing or ED observation. This was explained as well. Advisory was given that persistent or worsening symptoms require further evaluation. I confirmed the understanding of this discussion. Curb Machine Operator disclaimer Much of this encounter note is an electronic night club manager spoken language to printed text. Electronic night club manager of the spoken language may permit errors. Although I have reviewed the note, some errors may still exist.
--- NOTE | 2024-07-12 09:59 | PC.NURSE ---
ROUNDED ON PT, NO NEEDS AT THIS TIME. CALL LIGHT WITHIN REACH
[2024-07-12] MEDS: CEFTRIAXONE SODIUM 2 GM in 0.9 % SODIUM CHLORIDE 100 ML IV (10:30)
[2024-07-12] MEDS: AZITHROMYCIN 500 MG in 0.9 % SODIUM CHLORIDE 250 ML 250 MG IV (10:32)
== END 2024-07-12 11:19 | disposition home or self-care (01) ==
PROVIDERS: Emergency Provider Emergency Medicine; PCP Internal Medicine
DX: J18.9 Pneumonia, unspecified organism (principal); J44.1 Chronic obstructive pulmonary disease with (acute) exacerbation; R07.9 Chest pain, unspecified; R06.02 Shortness of breath; R42 Dizziness and giddiness; R00.2 Palpitations; R05.9 Cough, unspecified; M25.511 Pain in right shoulder; Z87.891 Personal history of nicotine dependence
CPT/HCPCS: 71045; 80053; 82803; 83880; 84484; 85025; 87636; 93005; 96361; 96365; 96374; 96375; 99284; J0456; J0696; J2919; J7050; J7620

== ENCOUNTER 2024-09-06 16:56 | Emergency (ER) | payer MEDICARE, MEDICAID, SELFPAY ==
[2024-09-06] VITALS (12 sets, daily range): BP systolic 101–133; BP diastolic 55–77; PULSE 66–75; RESP 18–20; TEMP 36.8–36.9; O2SAT 94–98; BMI 15.9
--- NOTE | 2024-09-06 17:31 | CT_ITS ---
PROCEDURE INFORMATION: Exam: CT Head Without Contrast Exam date and time: 09/06/2024 5:47 PM Age: 64 years old Clinical indication: Injury or trauma; Fall; Other: Pain; Additional info: Fall, hyperextension, neck pain and occipital pain TECHNIQUE: Imaging protocol: Computed tomography of the head without contrast. Radiation optimization: All CT scans at this facility use at least one of these dose optimization techniques: automated exposure control; mA and/or kV adjustment per patient size (includes targeted exams where dose is matched to clinical indication); or iterative reconstruction. COMPARISON: MR HEAD/BRAIN WO CON 07/13/2020 1:29 PM FINDINGS: Brain: No hemorrhage. Unremarkable white matter. No mass effect. Cerebral ventricles: No ventriculomegaly. Paranasal sinuses: Visualized sinuses are unremarkable. No fluid levels. Mastoid air cells: Visualized mastoid air cells are well aerated. Bones: Unremarkable. No acute fracture. Soft tissues: Unremarkable. IMPRESSION: No acute intracranial findings identified.
--- NOTE | 2024-09-06 17:31 | CT_ITS ---
PROCEDURE INFORMATION: Exam: CT Cervical Spine Without Contrast Exam date and time: 09/06/2024 5:47 PM Age: 64 years old Clinical indication: Injury or trauma; Fall; Other: Pain; Additional info: Fall, hyperextension, neck pain and occipital pain TECHNIQUE: Imaging protocol: Computed tomography of the cervical spine without contrast. Radiation optimization: All CT scans at this facility use at least one of these dose optimization techniques: automated exposure control; mA and/or kV adjustment per patient size (includes targeted exams where dose is matched to clinical indication); or iterative reconstruction. COMPARISON: US CA CAROTID DUPLEX BI 04/30/2023 2:28 PM FINDINGS: Bones: No acute fracture. ORIF from C4-C7 levels with partial bony fusion of C4/5 and C5/6. Vertebral body heights grossly preserved. Mild osteopenia. Lungs: Emphysematous changes of the visualized apices. Left apical pleural thickening/scarring. Soft tissues: Unremarkable. IMPRESSION: No acute findings identified.
--- NOTE | 2024-09-06 17:32 | PC.NURSE ---
PT REPOSITIONED IN BED AND PILLOW PROVIDED. JUSTYNA LIGHT WITHIN REACH
[2024-09-06] MEDS: KETOROLAC 30MG/ML VIAL 15 MG IM (17:39)
[2024-09-06] MEDS: ACETAMINOPHEN 500MG TAB 1000 MG PO (17:39)
--- NOTE | 2024-09-06 17:41 | ED_ITS ---
Discharge Plan Disposition Patient Disposition: Home, Self-Care Prescriptions Prescriptions: New dexamethasone 6 mg tablet 6 mg PO DAILY Qty: 5 0RF cyclobenzaprine 10 mg tablet 10 mg PO Q8H 5 Days Qty: 15 0RF No Action aspirin 81 mg tablet,delayed release (DR/EC) 81 mg PO DAILY 90 Days Qty: 90 4RF amoxicillin-pot clavulanate [Augmentin] 500-125 mg tablet 1 tab PO BID 14 Days Qty: 28 0RF tizanidine 4 mg tablet 8 mg PO BID PRN (Reason: muscle spasticity) 60 Days Qty: 120 1RF Stiolto Respimat 2.5-2.5 mcg/actuation mist 2 puff inhalation DAILY 90 Days Qty: 4 2RF duloxetine 60 mg capsule,delayed release(DR/EC) 60 mg PO DAILY 90 Days Qty: 90 3RF carvedilol 3.125 mg tablet See Rx Instructions .ROUTE .COMPLEX Qty: 180 3RF Dose Instruction: TAKE ONE TABLET BY MOUTH TWICE DAILY FOR HIGH blood pressure Rx Instructions: TAKE ONE TABLET BY MOUTH TWICE DAILY FOR HIGH blood pressure sacubitril-valsartan [Entresto] 24-26 mg tablet 1 tab PO BID Qty: 60 5RF atorvastatin 20 mg tablet 20 mg PO HS Qty: 90 0RF ipratropium-albuterol 0.5 mg-3 mg(2.5 mg base)/3 mL solution for nebulization 3 ml IH QID PRN (Reason: shortness of breath or wheezing) Qty: 180 2RF albuterol sulfate 90 mcg/actuation HFA aerosol inhaler 2 inh INHALATION QIDP PRN (Reason: Shortness Of Breath Or Wheezing) Patient Comments: INHALE TWO PUFFS BY MOUTH FOUR TIMES DAILY NEEDED FOR SHORTNESS OF BREATH OR wheezing Stiolto Respimat 2.5-2.5 mcg/actuation mist 2 inh INHALATION DAILY Patient Comments: INHALE TWO PUFFS BY MOUTH EVERY DAY multivitamin Tablet 1 tab PO DAILY Patient Comments: TAKE ONE TABLET BY MOUTH EVERY DAY doxycycline monohydrate 100 mg capsule 100 mg PO BID 5 Days Qty: 10 0RF azithromycin 500 mg tablet 500 mg PO DAILY 2 Days Qty: 2 0RF Rx Instructions: start on day 2 of therapy prednisone 20 mg tablet 40 mg PO DAILY 5 Days Qty: 10 0RF Referrals Follow up/Referrals: Vikas Rizo DO [Primary Care Provider] - See instructions Activity Restrictions/Add. Instructions Additional Instructions/Restrictions: Call your family doctor to establish care for this visit to the emergency department and schedule follow-up within 48 hours to ensure improvement. If you have any worsening of your condition or any other concerning signs or symptoms, return to the emergency department or your primary care doctor for further evaluation. Clinical Impressions Clinical Impression: Acute cervical myofascial strain Print Language Print Language: Israeli Discharge ED Provider: Steven Hewitt General Adult HPI General Chief complaint: PAIN Stated complaint: head and neck pain Time Seen by Provider: 09/06/24 17:05 Mode of Arrival: Ambulatory Source of Information: Patient Description of Symptoms (Recalled from ER Triage Doc. by RN): Pt presents for evaluation of head and neck pain x 3 days. Pt states he thought it slept on it wrong. History of Present Illness HPI narrative: Please note that above description of symptoms, in this electronic medical record under categorization of recalled from ER triage doctor by RN are reflective of an initial nursing assessment, however, is not reflective of my full history and physical exam that was personally taken and clarified. Consequentially, this preceding description of symptoms, which may include the patient's categorized chief complaint in the EMR, do not reflect my personal clinical impression, and the ultimate description of history of present illness and patient stated complaints should be deferred to this section of the note. Unless stated otherwise or congruent with this section of the note, additional signs, symptoms, or incongruence should be interpreted as inaccurate with my clinical impression. Related Data Home Medications ?Medication ?Instructions ?Recorded ?Confirmed albuterol sulfate 90 mcg/actuation 2 inh inhalation QIDP PRN 11/05/23 07/14/24 aerosol inhaler Shortness Of Breath Or Wheezing multivitamin 1 tab PO DAILY 11/05/23 07/14/24 tiotropium 2.5 mcg-olodaterol 2.5 2 inh inhalation DAILY 11/05/23 07/14/24 mcg/actuation mist for inhalation (Stiolto Respimat) Previous Rx's ?Medication ?Instructions ?Recorded aspirin 81 mg tablet,delayed 81 mg PO DAILY 90 days #90 tabs 04/13/24 release tiotropium 2.5 mcg-olodaterol 2.5 2 puff inhalation DAILY 90 days #4 04/22/24 mcg/actuation mist for inhalation grams (Stiolto Respimat) duloxetine 60 mg capsule,delayed 60 mg PO DAILY 90 days #90 caps 04/23/24 release carvedilol 3.125 mg tablet See Rx Instructions .Route 06/15/24 .COMPLEX #180 tabs sacubitril 24 mg-valsartan 26 mg 1 tab PO BID #60 tabs 06/15/24 tablet (Entresto) atorvastatin 20 mg tablet 20 mg PO HS #90 tabs 06/30/24 azithromycin 500 mg tablet 500 mg PO DAILY 2 days #2 tabs 07/12/24 doxycycline monohydrate 100 mg 100 mg PO BID 5 days #10 caps 07/12/24 capsule prednisone 20 mg tablet 40 mg (2 x 20 mg) PO DAILY 5 days 07/12/24 #10 tabs amoxicillin 500 mg-potassium 1 tab PO BID 14 days #28 tabs 07/14/24 clavulanate 125 mg tablet (Augmentin) tizanidine 4 mg tablet 8 mg (2 x 4 mg) PO BID PRN muscle 07/14/24 spasticity 60 days #120 tabs ipratropium 0.5 mg-albuterol 3 mg 3 ml inhalation QID PRN shortness 08/10/24 (2.5 mg base)/3 mL nebulization of breath or wheezing #180 mL soln cyclobenzaprine 10 mg tablet 10 mg PO Q8H muscle spasm 5 days 09/06/24 #15 tabs dexamethasone 6 mg tablet 6 mg PO DAILY #5 tabs 09/06/24 Allergies Allergy/AdvReac Type Severity Reaction Status Date / Time methocarbamol (From ROBAXIN) Allergy Unknown Shakiness Verified 07/14/24 13:16 pregabalin (From LYRICA) Allergy Unknown Shakiness Verified 07/14/24 13:16 methadone Allergy Difficulty Verified 07/14/24 13:16 Breathing ibuprofen AdvReac Cramping Verified 07/14/24 13:16 of the Muscles PFSH PFS Disclaimer: The information contained in this section may have been updated after the patient was seen, as this information can be updated by other users. Medical History Solid nodule of lung greater than 8 mm in diameter COPD mixed type Nodule of left lung SIRS (systemic inflammatory response syndrome) Acute and chronic respiratory failure with hypoxia Postherpetic trigeminal neuralgia Encounter for screening for malignant neoplasm of lung in current smoker with 30 pack year history or greater Abnormal screening computed tomography (CT) of chest Nonischemic cardiomyopathy Diastolic dysfunction Elevated left ventricular end-diastolic pressure (LVEDP) Non-STEMI (non-ST elevated myocardial infarction) Emphysema/COPD Pneumonia due to gram-negative bacteria Low body mass index (BMI) COPD (chronic obstructive pulmonary disease) with acute bronchitis Upper respiratory infection Rhinovirus infection HLD (hyperlipidemia) Tobacco dependence syndrome Chest pain Cardiomyopathy Preoperative clearance Poisoning by opiate or related narcotic Atypical pneumonia Postherpetic neuralgia Left against medical advice HTN (hypertension) Elevated C-reactive protein CAP (community acquired pneumonia) COPD (chronic obstructive pulmonary disease) Pain, eye, right Herpes zoster ophthalmicus, right eye Eye pain Shingles Neuropathy Surgical History H/O cervical spine surgery H/O cardiac catheterization Family History Mother Lung cancer Family history of acute congestive heart failure Father Lung cancer Family history of acute congestive heart failure Social History Smoking Status: Never smoker smoking status stop date: december 2021 second hand exposure: Yes alcohol intake: current alcohol intake frequency: holidays/special occasions only substance use type: denies use current occupational status: disabled Travel in the last 8 weeks: None household members: children housing: house marital status: current occupational exposures/hazards: No pets and animals: No caffeine: Yes Have you lived/traveled outside [place] in past 30 days?: No Contact w/someone who lives/traveled outside [place] past 30 days?: No Exposure to someone with infectious disease in past 14 days?: No Do you have a fever (greater than 100.4 F or 38 C)?: No Have you tested positive for COVID-19: No Exposed to someone with COVID-19 in past 14 days?: No Do you have a sore throat?: No Do you have a cough?: No Do you have any weakness?: No Do you have any diarrhea?: No Are you experiencing any unusual bleeding?: No Do you have any muscle aches/pain?: No Do you have any abdominal pain?: No Are you experiencing loss of taste or smell?: No Other Medical History Have you received the Flu Vaccine for this season: No Have you received the Pneumonia Vaccine: Yes ROS Obtained: Yes All systems reviewed & no additional complaints except as documented Physical Exam General General appearance: alert Head Head exam: atraumatic and normocephalic Eye Eye exam: Present normal appearance, PERRL and EOMI Neck Neck exam: Present trachea midline and tenderness (Bilateral paraspinal tenderness, left greater than right with muscle spasm.); Absent normal inspection, full ROM or meningismus Respiratory Respiratory exam: Absent respiratory distress, wheezes, stridor, accessory muscle use or prolonged expiratory phase Cardiovascular Cardiovascular exam: Present other (Pulses equal symmetric in upper and lower extremities) Abdominal Exam Abdominal exam: Present soft; Absent distention, tenderness or pulsatile mass Extremities Exam Extremities exam: Absent edema Neurological Exam Neurological exam: Present alert, oriented X3 and CN II-XII intact; Absent motor sensory deficit Skin Skin exam: Present warm and dry; Absent diaphoresis or erythema Medical Decision Making Medical Records Medical records reviewed: Yes I reviewed the patient's medical records. Screening: Per USPSTF and CDC recommendations, given the prevalence of disease in our region, it is our hospital?s policy to screen for HIV and viral Hepatitis for all patients aged 18 and over and those with ongoing risk factors. Marck Inquiry Pt receiving controlled substance: No Marck was queried for this patient: No Vital Signs: 09/06/24 17:00 09/06/24 17:08 09/06/24 17:15 Temperature 98.5 F Temperature Source Oral Pulse Rate 69 67 Pulse Rate [Right] 72 Respiratory Rate 18 Blood Pressure 109/73 L 106/61 L Blood Pressure [Right Arm] 101/55 L Blood Pressure Mean [Right Arm] 70 Blood Pressure Source [Right Arm] Automatic Cuff Blood Pressure Position [Right Arm] Sitting 02 Sat by Pulse Oximetry 96 98 95 Oxygen Delivery Method Room Air Room Air Room Air 09/06/24 17:37 09/06/24 18:01 09/06/24 18:15 Temperature Temperature Source Pulse Rate 71 74 75 Pulse Rate [Right] Respiratory Rate Blood Pressure 107/67 L 115/65 118/69 Blood Pressure [Right Arm] Blood Pressure Mean [Right Arm] Blood Pressure Source [Right Arm] Blood Pressure Position [Right Arm] 02 Sat by Pulse Oximetry 94 L 94 L 94 L Oxygen Delivery Method Room Air Room Air 09/06/24 18:30 09/06/24 18:46 09/06/24 19:01 Temperature Temperature Source Pulse Rate 74 66 69 Pulse Rate [Right] Respiratory Rate Blood Pressure 126/55 L 118/63 110/65 Blood Pressure [Right Arm] Blood Pressure Mean [Right Arm] Blood Pressure Source [Right Arm] Blood Pressure Position [Right Arm] 02 Sat by Pulse Oximetry 96 96 96 Oxygen Delivery Method Room Air 09/06/24 19:15 09/06/24 19:31 Temperature Temperature Source Pulse Rate 68 70 Pulse Rate [Right] Respiratory Rate Blood Pressure 133/72 116/77 Blood Pressure [Right Arm] Blood Pressure Mean [Right Arm] Blood Pressure Source [Right Arm] Blood Pressure Position [Right Arm] 02 Sat by Pulse Oximetry 95 97 Oxygen Delivery Method Orders (Tests/Meds): ED MEDICATIONS Discontinued Medications Generic Name Dose Route Start Last Admin Trade Name Freq PRN Reason Stop Dose Admin Acetaminophen 1,000 mg 09/06/24 17:30 09/06/24 17:39 Acetaminophen 500mg Tab PO 09/06/24 17:31 1,000 mg ONCE ONE Administration Cyclobenzaprine HCl 10 mg 09/06/24 17:41 09/06/24 17:43 Cyclobenzaprine 10mg Tablet PO 09/06/24 17:42 10 mg ONCE ONE Administration Ketorolac Tromethamine 15 mg 09/06/24 17:30 09/06/24 17:39 Ketorolac 30mg/Ml Vial IM 09/06/24 17:31 15 mg ONCE ONE Administration Lidocaine 1 each 09/06/24 18:54 09/06/24 19:13 Lidocaine 5% Transdermal Patch TP 09/06/24 18:55 1 each ONCE ONE Administration Methocarbamol 1,500 mg 09/06/24 17:30 09/06/24 17:36 Methocarbamol 500mg Tablet PO 09/06/24 17:31 Not Given ONCE ONE ORDERS Category Date Time Status CT cervical spine wo con Stat Cat Scan 09/06/24 17:[address] head/brain wo con Stat Cat Scan 09/06/24 17:31 Completed Medical Decision Narrative: 64-year-old male presenting with fall. Patient states that he fell 3 days prior to this. States that his feet came out from under me. He fell forward, hit his forehead on something, does not member what. Since that time, he has had significant pain all over his neck that radiates up to the base of his skull. No neurologic deficits, vision changes, vomiting, urinary or bowel changes. Has not taken anything for the pain. It is currently moderate in intensity, associated with spasms. History was obtained via conversation with patient. On arrival, patient hemodynamically stable, alert, oriented x4, appropriate, GCS 15, moving all extremities spontaneously, pupils equal and reactive to light. Full physical exam performed and significant for clinically well-appearing male who is in mild distress secondary to intermittent spasms. At rest, pleasant, conversational, intermittently having spasms of pain and appears to be in moderate distress. Neurologically intact, ambulatory, able to turn head left and right, but with some difficulty. No midline spinal tenderness, primarily paraspinal bilaterally. Differential includes intracranial hemorrhage, critical cervical spine injury, muscle spasm, among others. Patient was given Flexeril, IM Toradol, acetaminophen for symptomatic management and correction of underlying abnormalities. Workup independently interpreted and significant for no acute cervical spine injury. No evidence of intracranial hemorrhage. On reevaluation, patient still having mild pain, but no longer having spasms. Lidocaine patch was added for further comfort. Given patient presentation, workup, history, this most likely represents likely cervical myofascial strain and muscle spasm. Because patient at baseline without signs or symptoms of clinical decompensation, deemed appropriate for discharge. Resu lts were relayed to patient who voiced understanding and were agreeable to outpatient management and follow up. I discussed my clinical impression with patient and answered all questions. At this time, the evidence for any other entities in the differential is insufficient to warrant any further testing or ED observation. This was explained as well. Advisory was given that persistent or worsening symptoms require further evaluation. I confirmed the understanding of this discussion. 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 Electronic phototypesetter operator of the spoken language may permit errors. Although I have reviewed the note, some errors may still exist. Critical Care Critical Care Time Critical Care Time: No
[2024-09-06] MEDS: CYCLOBENZAPRINE 10MG TABLET 10 MG PO (17:43)
[2024-09-06] MEDS: LIDOCAINE 5% TRANSDERMAL PATCH 1 EACH TP (19:13)
== END 2024-09-06 20:12 | disposition home or self-care (01) ==
PROVIDERS: Emergency Provider Emergency Medicine; PCP Internal Medicine
DX: S16.1XXA Strain of muscle, fascia and tendon at neck level, initial encounter (principal); M54.2 Cervicalgia; R51.9 Headache, unspecified; W01.10XA Fall on same level from slipping, tripping and stumbling with subsequent striking against unspecified object, initial encounter; Y93.89 Activity, other specified; Y92.9 Unspecified place or not applicable
CPT/HCPCS: 70450; 72125; 96372; 99283; J1885

== ENCOUNTER 2024-09-11 09:24 | Outpatient (CLI) | payer MEDICARE, MEDICAID, SELFPAY ==
--- NOTE | 2024-09-11 09:27 | FL_ITS ---
FINAL REPORT CLINICAL HISTORY: DYSPHAGIA 34.16 MGY 1.27 MIN FINDINGS: ESOPHAGRAM HISTORY: Dysphagia. PROCEDURE: The patient ingested barium. Effervescent crystals were also administered. Spot and overhead films were obtained. FINDINGS: The esophagus is normal. There is no hiatal hernia. There is no gastroesophageal reflux. Peristalsis is normal. A 13 mm barium tablet was administered. The tablet passed throughout the esophagus without delay but the patient had the sensation of it being stuck in the oropharynx. IMPRESSION: Normal esophagram. A 13 mm barium tablet was administered. The tablet passed throughout the esophagus without delay but the patient had the sensation of it being stuck in the oropharynx. Fluoroscopy time: 1.27 minutes Radiation exposure in Reference air Kerma: 34.16 mGy Films reviewed , interpreted and dictated by Dr. Mendiola. Transcribed by Sam Olguin PA-C. Reviewed, Interpreted and Dictated by Caleb Mendiola MD Transcribed by MATT Morales Authenticated and [facility]
[2024-09-11] MEDS: BARIUM SULFATE(LIQUID E-Z-PAQUE);355ML BOTTLE 355 ML PO (09:51)
[2024-09-11] MEDS: BARIUM SULFATE (E-Z-HD 340GM);135ML BOTTLE 135 ML PO (09:51)
== END 2024-09-11 23:59 | disposition home or self-care (01) ==
LOC: RAD 09:25
PROVIDERS: PCP Nurse Practitioner Family; Visit Provider Student in an Organized Health Care Education/Training Program
DX: R13.10 Dysphagia, unspecified (principal)
CPT/HCPCS: 74220

== ENCOUNTER 2024-10-07 14:16 | Outpatient (CLI) | payer MEDICARE, MEDICAID, SELFPAY ==
--- NOTE | 2024-10-07 14:20 | CT_ITS ---
FINAL REPORT TECHNIQUE: Thin section axial images were obtained from the lung apices through the upper abdomen without contrast. This study was performed with techniques to keep radiation doses as low as reasonably achievable (ALARA). Individualized dose reduction techniques using automated exposure control or adjustment of mA and/or kV according to the patient's size were employed. CLINICAL HISTORY: COPD COMPARISON: 11/18/2023, 03/31/2024 CTs of chest FINDINGS: There is no axillary or hilar adenopathy. There is an 18 mm lymph node noted between the left and right brachiocephalic veins, that has increased in size since the prior CT of 03/31/2024, was previously 13 mm. No additional mediastinal adenopathy is noted. The heart size is normal. No pericardial effusion is present. There is a small new right pleural effusion. There is wall thickening of the mid and distal esophagus, which was present on the prior CT. Esophagitis is not excluded. Changes of emphysema are present. There is an 11 mm left apical nodule, seen on prior exams, stable. There are new bilateral reticulonodular and irregular airspace opacities in the anterior bilateral upper lobes and the posterior right upper lobe, as well as the inferior right middle lobe and lingula. There is worsening bronchial wall thickening in the right lower lobe, with worsening interstitial and ground glass opacities when compared to the prior exam. Limited, unenhanced evaluation of the upper abdomen is without acute abnormality. There is no acute osseous abnormality. IMPRESSION: Interval development of new bilateral opacities with worsening of the previously seen opacities, concerning for worsening infectious or inflammatory process. Underlying neoplasm cannot be excluded. Worsening lymphadenopathy in the mediastinum, reactive or neoplastic. Persistent distal esophageal wall thickening, that may be related to esophagitis, neoplasm not excluded. Reviewed, Interpreted and Dictated by Jessica Frost MD Transcribed by Glenda Bojorquez Authenticated and [facility]
[2024-10-07 15:10] VITALS: PULSE 58
[2024-10-07] MEDS: ALBUTEROL 0.083% 2.5 MG/3 ML NEB IH (15:10)
== END 2024-10-07 23:59 | disposition home or self-care (01) ==
LOC: RAD 14:17
PROVIDERS: PCP Nurse Practitioner Family; Visit Provider Internal Medicine Pulmonary Disease
DX: R91.8 Other nonspecific abnormal finding of lung field (principal); J44.9 Chronic obstructive pulmonary disease, unspecified; R06.09 Other forms of dyspnea
CPT/HCPCS: 71250; 94010; 94618; 94640; J7613

== ENCOUNTER 2024-10-11 17:44 | Emergency (ER) | payer MEDICARE, MEDICAID, SELFPAY ==
[2024-10-11] VITALS (7 sets, daily range): BP systolic 100–134; BP diastolic 63–73; PULSE 56–73; RESP 15–29; TEMP 36.6–36.7; O2SAT 92–96; BMI 16.0
--- NOTE | 2024-10-11 17:59 | ECG_ITS ---
APPROVED REPORT Exam: Resting ECG HR:66 bpm ECG Measurements Heart Rate 66 AXES SD 133 P 78 QRSd 85 QRS 81 QT 415 T 77 QTc 428 Conclusion SINUS RHYTHM NORMAL ECG Electronically signed by : LEONARD ROY, 10/11/2024 23:12:12
--- NOTE | 2024-10-11 18:03 | ED_ITS ---
Discharge Plan Disposition Patient Disposition: Home, Self-Care Condition: Good Prescriptions Prescriptions: New levofloxacin 750 mg tablet 750 mg PO DAILY 14 Days Qty: 14 0RF prednisone 50 mg tablet 50 mg PO DAILY 5 Days Qty: 5 0RF srsqqfjmnysesuw-bnjmauefz-PY [Bromfed DM] 2-30-10 mg/5 mL syrup 5 ml PO Q4H PRN (Reason: sinus symptoms) Qty: 118 0RF No Action aspirin 81 mg tablet,delayed release (DR/EC) 81 mg PO DAILY 90 Days Qty: 90 4RF amoxicillin-pot clavulanate [Augmentin] 500-125 mg tablet 1 tab PO BID 14 Days Qty: 28 0RF tizanidine 4 mg tablet 8 mg PO BID PRN (Reason: muscle spasticity) 60 Days Qty: 120 1RF duloxetine 60 mg capsule,delayed release(DR/EC) 60 mg PO DAILY 90 Days Qty: 90 3RF carvedilol 3.125 mg tablet See Rx Instructions .ROUTE .COMPLEX Qty: 180 3RF Dose Instruction: TAKE ONE TABLET BY MOUTH TWICE DAILY FOR HIGH blood pressure Rx Instructions: TAKE ONE TABLET BY MOUTH TWICE DAILY FOR HIGH blood pressure sacubitril-valsartan [Entresto] 24-26 mg tablet 1 tab PO BID Qty: 60 5RF atorvastatin 20 mg tablet 20 mg PO HS Qty: 90 0RF ipratropium-albuterol 0.5 mg-3 mg(2.5 mg base)/3 mL solution for nebulization 3 ml IH QID PRN (Reason: shortness of breath or wheezing) Qty: 180 2RF Stiolto Respimat 2.5-2.5 mcg/actuation mist 2 puff inhalation DAILY 90 Days Qty: 4 2RF albuterol sulfate 90 mcg/actuation HFA aerosol inhaler 2 inh INHALATION QIDP PRN (Reason: Shortness Of Breath Or Wheezing) Patient Comments: INHALE TWO PUFFS BY MOUTH FOUR TIMES DAILY NEEDED FOR SHORTNESS OF BREATH OR wheezing Stiolto Respimat 2.5-2.5 mcg/actuation mist 2 inh INHALATION DAILY Patient Comments: INHALE TWO PUFFS BY MOUTH EVERY DAY multivitamin Tablet 1 tab PO DAILY Patient Comments: TAKE ONE TABLET BY MOUTH EVERY DAY doxycycline monohydrate 100 mg capsule 100 mg PO BID 5 Days Qty: 10 0RF azithromycin 500 mg tablet 500 mg PO DAILY 2 Days Qty: 2 0RF Rx Instructions: start on day 2 of therapy prednisone 20 mg tablet 40 mg PO DAILY 5 Days Qty: 10 0RF dexamethasone 6 mg tablet 6 mg PO DAILY Qty: 5 0RF cyclobenzaprine 10 mg tablet 10 mg PO Q8H 5 Days Qty: 15 0RF Referrals Follow up/Referrals: Aldo Simmons APRN [Primary Care Provider] - See instructions Activity Restrictions/Add. Instructions Additional Instructions/Restrictions: As we discussed I sent a prescription in for steroids antibiotics and for cough medicine. Please keep your scheduled follow-up with pulmonology next week. If you have continued new or worsening signs or symptoms follow-up with your PCP or return to the ER as needed. Clinical Impressions Clinical Impression: Multifocal pneumonia, Bronchiolitis Print Language Print Language: [place] Discharge ED Provider: Ernesto Elliott Adult HPI <MATT Brown - Last Filed: 10/11/24 20:46> General Chief complaint: Upper Respiratory Infection Stated complaint: Difficulty breathing,sore on right arm from fall Time Seen by Provider: 10/11/24 18:03 Mode of Arrival: Wheelchair Source of Information: Patient Description of Symptoms (Recalled from ER Triage Doc. by RN): Pt presents for evaluation of multiple complaints. Pt states he fell on or saturday and is having right and left shoulder pain. Pt denies hitting his head, denies loc/BT. Pt states he has had a productive cough x 3-4 days. History of Present Illness HPI narrative: Patient presents for evaluation of multiple complaints. Patient states that he fell late night early Saturday morning and initially suffered only a skin tear to his right forearm on the dorsum. However he states that the last couple of days he has been having shoulder pain. He denies striking the ground and actually went down on his hands and knees. He denies losing consciousness striking his head. He denies loss of motor or sensory and actually does have full range of motion. Additionally patient gives a history of cough and particularly dyspnea on exertion. He does have longstanding COPD and has a home nebulizer which she has been utilizing frequently without relief. He denies any fever chills hemoptysis hematochezia melena nausea vomiting diarrhea but does report productive white-yellowish sputum. Related Data Home Medications ?Medication ?Instructions ?Recorded ?Confirmed albuterol sulfate 90 mcg/actuation 2 inh inhalation QIDP PRN 11/05/23 07/14/24 aerosol inhaler Shortness Of Breath Or Wheezing multivitamin 1 tab PO DAILY 11/05/23 07/14/24 tiotropium 2.5 mcg-olodaterol 2.5 2 inh inhalation DAILY 11/05/23 07/14/24 mcg/actuation mist for inhalation (Stiolto Respimat) Previous Rx's ?Medication ?Instructions ?Recorded aspirin 81 mg tablet,delayed 81 mg PO DAILY 90 days #90 tabs 04/13/24 release duloxetine 60 mg capsule,delayed 60 mg PO DAILY 90 days #90 caps 04/23/24 release carvedilol 3.125 mg tablet See Rx Instructions .Route 06/15/24 .COMPLEX #180 tabs sacubitril 24 mg-valsartan 26 mg 1 tab PO BID #60 tabs 06/15/24 tablet (Entresto) atorvastatin 20 mg tablet 20 mg PO HS #90 tabs 06/30/24 azithromycin 500 mg tablet 500 mg PO DAILY 2 days #2 tabs 07/12/24 doxycycline monohydrate 100 mg 100 mg PO BID 5 days #10 caps 07/12/24 capsule prednisone 20 mg tablet 40 mg (2 x 20 mg) PO DAILY 5 days 07/12/24 #10 tabs amoxicillin 500 mg-potassium 1 tab PO BID 14 days #28 tabs 07/14/24 clavulanate 125 mg tablet (Augmentin) tizanidine 4 mg tablet 8 mg (2 x 4 mg) PO BID PRN muscle 07/14/24 spasticity 60 days #120 tabs ipratropium 0.5 mg-albuterol 3 mg 3 ml inhalation QID PRN shortness 08/10/24 (2.5 mg base)/3 mL nebulization of breath or wheezing #180 mL soln cyclobenzaprine 10 mg tablet 10 mg PO Q8H muscle spasm 5 days 09/06/24 #15 tabs dexamethasone 6 mg tablet 6 mg PO DAILY #5 tabs 09/06/24 tiotropium 2.5 mcg-olodaterol 2.5 2 puff inhalation DAILY 90 days #4 09/30/24 mcg/actuation mist for inhalation grams (Stiolto Respimat) omplbpirvtepzyn-bafrzlyteqvsntq-VM 5 ml PO Q4H PRN sinus symptoms 10/11/24 2 mg-30 mg-10 mg/5 mL oral syrup #118 mL (Bromfed DM) levofloxacin 750 mg tablet 750 mg PO DAILY 14 days #14 tabs 10/11/24 prednisone 50 mg tablet 50 mg PO DAILY 5 days #5 tabs 10/11/24 Allergies Allergy/AdvReac Type Severity Reaction Status Date / Time methocarbamol (From ROBAXIN) Allergy Unknown Shakiness Verified 07/14/24 13:16 pregabalin (From LYRICA) Allergy Unknown Shakiness Verified 07/14/24 13:16 methadone Allergy Difficulty Verified 07/14/24 13:16 Breathing ibuprofen AdvReac Cramping Verified 07/14/24 13:16 of the Muscles [facility] <MATT Brown - Last Filed: 10/11/24 20:46> [facility] Disclaimer: The information contained in this section may have been updated after the patient was seen, as this information can be updated by other users. Medical History Solid nodule of lung greater than 8 mm in diameter COPD mixed type Nodule of left lung SIRS (systemic inflammatory response syndrome) Acute and chronic respiratory failure with hypoxia Postherpetic trigeminal neuralgia Encounter for screening for malignant neoplasm of lung in current smoker with 30 pack year history or greater Abnormal screening computed tomography (CT) of chest Nonischemic cardiomyopathy Diastolic dysfunction Elevated left ventricular end-diastolic pressure (LVEDP) Non-STEMI (non-ST elevated myocardial infarction) Emphysema/COPD Pneumonia due to gram-negative bacteria Low body mass index (BMI) COPD (chronic obstructive pulmonary disease) with acute bronchitis Upper respiratory infection Rhinovirus infection HLD (hyperlipidemia) Tobacco dependence syndrome Chest pain Cardiomyopathy Preoperative clearance Poisoning by opiate or related narcotic Atypical pneumonia Postherpetic neuralgia Left against medical advice HTN (hypertension) Elevated C-reactive protein CAP (community acquired pneumonia) COPD (chronic obstructive pulmonary disease) Pain, eye, right Herpes zoster ophthalmicus, right eye Eye pain Shingles Neuropathy Surgical History H/O cervical spine surgery H/O cardiac catheterization Family History Mother Lung cancer Family history of acute congestive heart failure Father Lung cancer Family history of acute congestive heart failure Social History Smoking Status: Former smoker tobacco type: cigarettes packs per day: 1 smoking status stop date: december 2021 second hand exposure: Yes alcohol intake: current alcohol intake frequency: holidays/special occasions only substance use type: denies use current occupational status: disabled Travel in the last 8 weeks?: None household members: children housing: house marital status: current occupational exposures/hazards: No pets and animals: No caffeine: Yes Have you lived/traveled outside [place] in past 30 days?: No Contact w/someone who lives/traveled outside US past 30 days?: No Exposure to someone with infectious disease in past 14 days?: No Do you have a fever (greater than 100.4 F or 38 C)?: No Have you tested positive for COVID-19?: No Exposed to someone with COVID-19 in past 14 days?: No Do you have a sore throat?: No Do you have a cough?: No Do you have any weakness?: No Do you have any diarrhea?: No Are you experiencing any unusual bleeding?: No Do you have any muscle aches/pain?: No Do you have any abdominal pain?: No Are you experiencing loss of taste or smell?: No Other Medical History Have you received the Flu Vaccine for this season: No Have you received the Pneumonia Vaccine: Yes <MATT Brown - Last Filed: 10/11/24 20:46> ROS Obtained: Yes Systems reviewed as appropriate & no additional complaints except as documented Physical Exam <MATT Brown - Last Filed: 10/11/24 20:46> General General appearance: alert and in no apparent distress Neck Neck exam: Present lymphadenopathy Respiratory Respiratory exam: Present wheezes (Fuhs in all 4 bui but no increased work of breathing or accessory muscle use); Absent normal lung sounds bilaterally or respiratory distress Cardiovascular Cardiovascular exam: Present regular rate Neurological Exam Neurological exam: Present alert, oriented X3 and CN II-XII intact Medical Decision Making <MATT Brown - Last Filed: 10/11/24 20:46> Medical Records Medical records reviewed: Yes I reviewed the patient's medical records. Screening: Per USPSTF and CDC recommendations, given the prevalence of disease in our region, it is our hospital?s policy to screen for HIV and viral Hepatitis for all patients aged 18 and over and those with ongoing risk factors. Marck Inquiry Pt receiving controlled substance: No Vital Signs: 10/11/24 17:48 10/11/24 17:57 10/11/24 18:00 Temperature 98.1 F Temperature Source Oral Pulse Rate 61 67 Pulse Rate [Right] 63 Respiratory Rate 18 18 15 Blood Pressure 116/65 115/68 Blood Pressure [Right Arm] 100/63 L Blood Pressure Mean Blood Pressure Mean [Right Arm] 75 Blood Pressure Source [Right Arm] Automatic Cuff Blood Pressure Position [Right Arm] Sitting 02 Sat by Pulse Oximetry 93 L 96 95 Oxygen Delivery Method Room Air Room Air 10/11/24 18:46 10/11/24 19:00 10/11/24 19:30 Temperature Temperature Source Pulse Rate 61 56 L Pulse Rate [Right] Respiratory Rate 18 29 H 24 Blood Pressure 109/64 L 119/67 124/68 Blood Pressure [Right Arm] Blood Pressure Mean Blood Pressure Mean [Right Arm] Blood Pressure Source [Right Arm] Blood Pressure Position [Right Arm] 02 Sat by Pulse Oximetry 92 L 92 L Oxygen Delivery Method 10/11/24 19:30 10/11/24 20:42 Temperature 97.9 F Temperature Source Pulse Rate 73 Pulse Rate [Right] Respiratory Rate 18 Blood Pressure 124/68 134/73 Blood Pressure [Right Arm] Blood Pressure Mean 86 Blood Pressure Mean [Right Arm] Blood Pressure Source [Right Arm] Blood Pressure Position [Right Arm] 02 Sat by Pulse Oximetry Oxygen Delivery Method Room Air Lab Data Lab results reviewed: Yes I reviewed the patient's lab results. Lab Results 10/11/24 17:57: WBC 9.7, RBC 3.62 L, Hgb 9.8 L, Hct 31.4 L, MCV 86.7, MCH 27.1, MCHC 31.2 L, RDW 15.9, Plt Count 448 H, MPV 9.1, Neut % (Auto) 68.5, Lymph % (Auto) 19.0, [place] % (Auto) 8.6, Eos % (Auto) 3.1, Baso % (Auto) 0.6, Neut # (Auto) 6.7, Lymph # (Auto) 1.8, [place] # (Auto) 0.8, Eos # (Auto) 0.3, Baso # (Auto) 0.1, PT 10.7, INR 0.95, Sodium 135 L, Potassium 4.2, Chloride 101, Carbon Dioxide 29, Anion Gap 9.2, BUN 15, Creatinine 0.60 L, Estimated Creat Clear 58, Estimated GFR 135, Est GFR ( Amer) 163, Glucose 103 H, Calcium 8.7, Magnesium 1.8, Total Bilirubin 0.6, AST 20, ALT 13, Alkaline Phosphatase 77, Troponin I < 0.01, NT-Pro-B Natriuret Pep 279 H, Total Protein 7.0, Albumin 3.5, Globulin 3.5 H, Albumin/Globulin Ratio 1.0 L, Procalcitonin 0.050 10/11/24 18:47: VBG pH 7.39, VBG pCO2 48.2, VBG pO2 36.5, VBG HCO3 28.7, VBG Total CO2 30.2 H, VBG O2 Saturation 68.2, VBG Base Excess 3.8 H, VBG Lactic Acid 1.0 10/11/24 17:57 10/11/24 17:57 Orders (Tests/Meds): ED MEDICATIONS Discontinued Medications Generic Name Dose Route Start Last Admin Trade Name Halina PRN Reason Stop Dose Admin Dexamethasone Sodium Phosphate 10 mg 10/11/24 18:34 10/11/24 18:40 Dexamethasone 4mg/Ml 5ml Mdv IV 10/11/24 18:35 10 mg ONCE ONE Administration Iopamidol 70 ml 10/11/24 19:06 10/11/24 19:07 Iopamidol-370 (76%);100ml Bottle IV 10/11/24 19:07 70 ml ONCE ONE Administration Levalbuterol HCl 1.25 mg 10/11/24 18:34 10/11/24 18:40 Levalbuterol 1.25mg/3ml Neb IH 10/11/24 18:35 1.25 mg ONCE ONE Administration Levofloxacin 750 mg 10/11/24 20:25 10/11/24 20:34 Levofloxacin 750 Mg Tablet PO 10/11/24 20:26 750 mg ONCE ONE Administration Sodium Chloride 50 ml 10/11/24 19:06 10/11/24 19:07 0.9 % Sodium Chloride 50 Ml Vial IV 10/11/24 19:07 50 ml ONCE ONE Administration Sodium Chloride 10 ml 10/11/24 19:06 10/11/24 19:07 Sodium Chloride 0.9% 10ml Syr (Rad Only) IV 10/11/24 19:07 10 ml ONCE ONE Administration ORDERS Category Date Time Status CT angio chest PE protocol Stat Cat Scan 10/11/24 18:35 Completed BNP [NT Pro Brain Natriuretic Pep.] Stat Lab 10/11/24 17:57 Completed CBC w/Auto Diff [Complete Blood Count Auto Diff] Stat Lab 10/11/24 17:57 Completed CMP [Comprehensive Metabolic Panel] Stat Lab 10/11/24 17:57 Completed INR [Prothrombin Time INR] Stat Lab 10/11/24 17:57 Completed Magnesium Stat Lab 10/11/24 17:57 Completed Procalcitonin Stat Lab 10/11/24 17:57 Completed Trop I [Troponin I] Stat Lab 10/11/24 17:57 Completed VBG [Venous Blood Gas] Stat RT 10/11/24 18:47 Completed HEART Score History (anamnesis): Slightly suspicious ECG: Non-specific disturbance Age: >65 years Risk factors: 3 or more risk factors Troponin: </= normal limit HEART Score: 5 Medical Decision Narrative: In summary patient is a 64-year-old male who presents to the emergency department for evaluation of bilateral shoulder pain and dyspnea on exertion along with productive cough. Patient is initially slightly hypotensive on arrival with a blood pressure 100/63 heart rate of 63 with normal sinus rhythm on bedside monitor breathing 18 times a minute satting 93% on room air upon arrival, afebrile 98.1. Physical exam reveals a healing skin tear/abrasion on the dorsum of his right forearm with no evidence of infection or cellulitis. Patient has full range of motion without palpable bony deformity and is not particularly tender to palpation. Patient has full range of motion in all 4 extremities however and palpation of the bilateral shoulders reveals no palpable bony deformity no crepitus no contusions abrasions. He has full abduction and abduction is neurovascularly intact distally. He has no midline C-spine tenderness. He has no contusions abrasions deformities ecchymosis on secondary exam anywhere on his body other than the aforementioned right forearm. Auscultation of the breath sounds reveals diffuse end expiratory wheezes in all 4 bui and patient has a wet productive cough. He does not have increased work of breathing or accessory muscle use. The cardiovascular is S1-S2 regular rate rhythm without murmurs gallops rubs or thrills no dependent edema noted.. Differential diagnosis includes COPD exacerbation versus pneumonia versus PE versus ACS etc as well as arthralgias of the shoulders. Initial workup will be conducted with hematologic labs VBG CT PE protocol. Initial interventions include Tylenol Toradol Decadron DuoNeb. Initial workup reviewed by me has white count 7.7 hemoglobin hematocrit 9.8 and 31.4 respectively with no neutrophilic shift, INR 0.95, VBG shows a pH of 7.39 pCO2 of 48.2 pO2 of 36.5 bicarb 28.7 VBG O2 sat of 68.2 base excess 3.8 and a VBG lactic acid 1.0, chemistries are significant for sodium 135 creatinine 0.6 glucose 103 troponin is less than 0.01 NT proBNP is 279 and the remainder of his hematologic labs are nonactionable. My informal interpretation of the CT PE protocol shows no evidence of thrombus but does show a spiculated lesion that appears to be stable in the left lung apex along with severe emphysematous changes but also mucous plugging multifocal groundglass opacities that could be consistent with pneumonia or bronchiolitis.. Upon repeat evaluation patient however reports significant improvement after initial intervention including no shoulder pain and he is breathing much easier. Patient does have follow-up already scheduled for pulmonology in the coming week. Given that patient is appropriate for discharge with prescription for Bromfed steroids and Levaquin with close follow- up with pulmonology and should he have any worsening or new signs and symptoms follow-up PCP return to the ER as needed.. Documenting what the teletypesetter monitor shows with rate and rhythm <Ernesto Elliott MD - Last Filed: 10/13/24 20:29> Vital Signs: 10/11/24 17:48 10/11/24 17:57 10/11/24 18:00 Temperature 98.1 F Temperature Source Oral Pulse Rate 61 67 Pulse Rate [Right] 63 Respiratory Rate 18 18 15 Blood Pressure 116/65 115/68 Blood Pressure [Right Arm] 100/63 L Blood Pressure Mean Blood Pressure Mean [Right Arm] 75 Blood Pressure Source [Right Arm] Automatic Cuff Blood Pressure Position [Right Arm] Sitting 02 Sat by Pulse Oximetry 93 L 96 95 Oxygen Delivery Method Room Air Room Air 10/11/24 18:46 10/11/24 19:00 10/11/24 19:30 Temperature Temperature Source Pulse Rate 61 56 L Pulse Rate [Right] Respiratory Rate 18 29 H 24 Blood Pressure 109/64 L 119/67 124/68 Blood Pressure [Right Arm] Blood Pressure Mean Blood Pressure Mean [Right Arm] Blood Pressure Source [Right Arm] Blood Pressure Position [Right Arm] 02 Sat by Pulse Oximetry 92 L 92 L Oxygen Delivery Method 10/11/24 19:30 10/11/24 20:42 Temperature 97.9 F Temperature Source Pulse Rate 73 Pulse Rate [Right] Respiratory Rate 18 Blood Pressure 124/68 134/73 Blood Pressure [Right Arm] Blood Pressure Mean 86 Blood Pressure Mean [Right Arm] Blood Pressure Source [Right Arm] Blood Pressure Position [Right Arm] 02 Sat by Pulse Oximetry Oxygen Delivery Method Room Air Lab Data Lab Results 10/11/24 17:57: WBC 9.7, RBC 3.62 L, Hgb 9.8 L, Hct 31.4 L, MCV 86.7, MCH 27.1, MCHC 31.2 L, RDW 15.9, Plt Count 448 H, MPV 9.1, Neut % (Auto) 68.5, Lymph % (Auto) 19.0, [place] % (Auto) 8.6, Eos % (Auto) 3.1, Baso % (Auto) 0.6, Neut # (Auto) 6.7, Lymph # (Auto) 1.8, [place] # (Auto) 0.8, Eos # (Auto) 0.3, Baso # (Auto) 0.1, PT 10.7, INR 0.95, Sodium 135 L, Potassium 4.2, Chloride 101, Carbon Dioxide 29, Anion Gap 9.2, BUN 15, Creatinine 0.60 L, Estimated Creat Clear 58, Estimated GFR 135, Est GFR ( Amer) 163, Glucose 103 H, Calcium 8.7, Magnesium 1.8, Total Bilirubin 0.6, AST 20, ALT 13, Alkaline Phosphatase 77, Troponin I < 0.01, NT-Pro-B Natriuret Pep 279 H, Total Protein 7.0, Albumin 3.5, Globulin 3.5 H, Albumin/Globulin Ratio 1.0 L, Procalcitonin 0.050 10/11/24 18:47: VBG pH 7.39, VBG pCO2 48.2, VBG pO2 36.5, VBG HCO3 28.7, VBG Total CO2 30.2 H, VBG O2 Saturation 68.2, VBG Base Excess 3.8 H, VBG Lactic Acid 1.0 Orders (Tests/Meds): ED MEDICATIONS Discontinued Medications Generic Name Dose Route Start Last Admin Trade Name Freq PRN Reason Stop Dose Admin Dexamethasone Sodium Phosphate 10 mg 10/11/24 18:34 10/11/24 18:40 Dexamethasone 4mg/Ml 5ml Mdv IV 10/11/24 18:35 10 mg ONCE ONE Administration Iopamidol 70 ml 10/11/24 19:06 10/11/24 19:07 Iopamidol-370 (76%);100ml Bottle IV 10/11/24 19:07 70 ml ONCE ONE Administration Levalbuterol HCl 1.25 mg 10/11/24 18:34 10/11/24 18:40 Levalbuterol 1.25mg/3ml Neb IH 10/11/24 18:35 1.25 mg ONCE ONE Administration Levofloxacin 750 mg 10/11/24 20:25 10/11/24 20:34 Levofloxacin 750 Mg Tablet PO 10/11/24 20:26 750 mg ONCE ONE Administration Sodium Chloride 50 ml 10/11/24 19:06 10/11/24 19:07 0.9 % Sodium Chloride 50 Ml Vial IV 10/11/24 19:07 50 ml ONCE ONE Administration Sodium Chloride 10 ml 10/11/24 19:06 10/11/24 19:07 Sodium Chloride 0.9% 10ml Syr (Rad Only) IV 10/11/24 19:07 10 ml ONCE ONE Administration ORDERS Category Date Time Status CT angio chest PE protocol Stat Cat Scan 10/11/24 18:35 Completed BNP [NT Pro Brain Natriuretic Pep.] Stat Lab 10/11/24 17:57 Completed CBC w/Auto Diff [Complete Blood Count Auto Diff] Stat Lab 10/11/24 17:57 Completed CMP [Comprehensive Metabolic Panel] Stat Lab 10/11/24 17:57 Completed INR [Prothrombin Time INR] Stat Lab 10/11/24 17:57 Completed Magnesium Stat Lab 10/11/24 17:57 Completed Procalcitonin Stat Lab 10/11/24 17:57 Completed Trop I [Troponin I] Stat Lab 10/11/24 17:57 Completed VBG [Venous Blood Gas] Stat RT 10/11/24 18:47 Completed HEART Score HEART Score: 5 Medical Decision Narrative: In summary patient is a 64-year-old male who presents to the emergency department for evaluation of bilateral shoulder pain and dyspnea on exertion along with productive cough. Patient is initially slightly hypotensive on arrival with a blood pressure 100/63 heart rate of 63 with normal sinus rhythm on bedside monitor breathing 18 times a minute satting 93% on room air upon arrival, afebrile 98.1. Physical exam reveals a healing skin tear/abrasion on the dorsum of his right forearm with no evidence of infection or cellulitis. Patient has full range of motion without palpable bony deformity and is not particularly tender to palpation. Patient has full range of motion in all 4 extremities however and palpation of the bilateral shoulders reveals no palpable bony deformity no crepitus no contusions abrasions. He has full abduction and abduction is neurovascularly intact distally. He has no midline C-spine tenderness. He has no contusions abrasions deformities ecchymosis on secondary exam anywhere on his body other than the aforementioned right forearm. Auscultation of the breath sounds reveals diffuse end expiratory wheezes in all 4 bui and patient has a wet productive cough. He does not have increased work of breathing or accessory muscle use. The cardiovascular is S1-S2 regular rate rhythm without murmurs gallops rubs or thrills no dependent edema noted.. Differential diagnosis includes COPD exacerbation versus pneumonia versus PE versus ACS etc as well as arthralgias of the shoulders. Initial workup will be conducted with hematologic labs VBG CT PE protocol. Initial interventions include Tylenol Toradol Decadron DuoNeb. Initial workup reviewed by me has white count 7.7 hemoglobin hematocrit 9.8 and 31.4 respectively with no neutrophilic shift, INR 0.95, VBG shows a pH of 7.39 pCO2 of 48.2 pO2 of 36.5 bicarb 28.7 VBG O2 sat of 68.2 base excess 3.8 and a VBG lactic acid 1.0, chemistries are significant for sodium 135 creatinine 0.6 glucose 103 troponin is less than 0.01 NT proBNP is 279 and the remainder of his hematologic labs are nonactionable. My informal interpretation of the CT PE protocol shows no evidence of thrombus but does show a spiculated lesion that appears to be stable in the left lung apex along with severe emphysematous changes but also mucous plugging multifocal groundglass opacities that could be consistent with pneumonia or bronchiolitis.. Upon repeat evaluation patient however reports significant improvement after initial intervention including no shoulder pain and he is breathing much easier. Patient does have follow-up already scheduled for pulmonology in the coming week. Given that patient is appropriate for discharge with prescription for Bromfed steroids and Levaquin with close follow- up with pulmonology and should he have any worsening or new signs and symptoms follow-up PCP return to the ER as needed.. Documenting what the teletypesetter monitor shows with rate and rhythm I was consulted by the BRONSON, and we discussed the complexity of the problems being addressed.I approved the treatment and management plan for this patient?s care in the Emergency Department, thus performing a substantive portion of the medical decision making.Signed, Ernesto Elliott MD [facility] <MATT Brown - Last Filed: 10/11/24 20:46> Critical Care Time Critical Care Time: Yes Attestation: On 10/11/24, the high probability of a clinically significant, sudden or life threatening deterioration of the following system(s) required my full and direct attention, intervention and personal management. The time I documented below is in addition to time spent performing reported procedures but includes the following listed in this critical care notation. Total Time Total Critical Care Time: 35
--- NOTE | 2024-10-11 18:35 | CT_ITS ---
PROCEDURE INFORMATION: Exam: CTA Chest With Contrast Exam date and time: 10/11/2024 7:10 PM Age: 64 years old Clinical indication: Dyspnea TECHNIQUE: Imaging protocol: Computed tomographic angiography of the chest with contrast. Exam focused on the arteries. 3D rendering (Not supervised by radiologist): MIP and/or 3D reconstructed images were created by the technologist. Radiation optimization: All CT scans at this facility use at least one of these dose optimization techniques: automated exposure control; mA and/or kV adjustment per patient size (includes targeted exams where dose is matched to clinical indication); or iterative reconstruction. Contrast material: ISO 370; Contrast volume: 70 ml; Contrast route: INTRAVENOUS (IV); COMPARISON: 1. CT ANGIO CHEST PE PROTOCOL 11/05/2023 1:[address] ANGIO CHEST PE PROTOCOL 02/24/2022 8:23 PM FINDINGS: Pulmonary arteries: Normal. No pulmonary emboli. Aorta: Mild aortic atherosclerosis. No aneurysm or dissection. Lungs: Pulmonary hyperinflation. Severe diffuse centrilobular and upper lobe predominant paraseptal emphysema. Bilateral bronchial wall thickening. Reticular and patchy consolidations in the anterior segments of the bilateral upper lobes, right middle lobe, and lingula. Segmental and subsegmental mucoid impaction in the right middle lobe and bilateral lower lobe bronchi. Scattered bilateral patchy and tree-in-bud nodular consolidations, worse in the right middle lobe and bilateral lower lobes. Ground-glass consolidation in the right lower lobe. Stable 1.2 cm spiculated nodularity in the left lung apex since October 2023. Pleural spaces: Unremarkable. No pneumothorax. No pleural effusion. Heart: Unremarkable. No cardiomegaly. No pericardial effusion. Esophagus: Circumferential thickening to the mid and distal thoracic esophagus. Lymph nodes: Slightly prominent mediastinal (up to 1.2 cm in the precarinal space) and right hilar (up to 1.4 cm) lymph nodes. Spleen: Stable benign splenic calcified granulomas. Bones/joints: Healed left rib fractures. Partially seen cervical spine fixation hardware. Mild degenerative changes of the thoracic spine. No acute fracture. Soft tissues: Significantly decreased body wall subcutaneous fat, favoring cachexia. Other findings: Left hilar calcified granuloma, benign. IMPRESSION: 1. No pulmonary emboli. 2. Circumferential thickening to the mid and distal thoracic esophagus. Similar to the reference examination and possibly of chronic etiology (perhaps related to GERD). Differential would include esophagitis or occult pathology. Consider nonemergent gastroenterology consultation. 3. Slightly prominent mediastinal (up to 1.2 cm in the precarinal space) and right hilar (up to 1.4 cm) lymph nodes. Presumably reactive. 4. Bilateral moderate lower lobe predominant bronchitis and bronchiolitis with scattered patchy areas of focal pneumonia and multi segmental lower lobe predominant bronchial mucoid impaction. 5. Evidence for COPD and severe emphysema. 6. Stable 1.2 cm spiculated nodularity in the left lung apex since October 2023. Stability is reassuring (perhaps this is an area of capping/scarring), nevertheless close follow-up is recommended. Consider a follow-up chest CT in 3-6 months. 7. Scattered chronic areas of interstitial scarring which are similar to prior. COMMENTS: The presence of pulmonary emphysema on CT is an independent risk factor for lung cancer. In the absence of a history or active diagnosis of lung cancer, it is recommended that this patient with emphysema be evaluated for enrollment in a low dose CT lung cancer screening program.
[2024-10-11] MEDS: DEXAMETHASONE 4MG/ML 5ML MDV 10 MG IV (18:40)
[2024-10-11] MEDS: LEVALBUTEROL 1.25MG/3ML NEB 1.25 MG IH (18:40)
[2024-10-11 18:42] LABS: Basophils # 0.1 K/mm3 (0-0.2); Basophils % 0.6 % (0.1-2.0); Eosinophils # 0.3 Kmm3 (0.0-0.4); Eosinophils % 3.1 % (0.1-12.0); Hematocrit 31.4 % (42.0-52.0); Hemoglobin 9.8 g/dL (14.1-18.0); Lymphocytes # 1.8 K/mm3 (0.7-4.5); Mean Corpuscular HGB Conc 31.2 g/dL (31.8-35.4); Mean Corpuscular Hemoglobin 27.1 pg (27.0-31.2); Mean Corpuscular Volume 86.7 fl (80-94); Mean Platelet Volume 9.1 fl (7.4-10.4); Monocytes # 0.8 K/mm3 (0.1-1.0); Monocytes % 8.6 % (1.7-9.3); Neutrophils # 6.7 K/mm3 (1.8-7.8); Neutrophils % 68.5 % (37.0-80.0); Nucleated Red Blood Cells # 0 10^3/uL; Nucleated Red Blood Cells % 0 %; Platelet Count 448 K/mm3 (142-424); Red Blood Count 3.62 M/mm3 (4.60-6.20); Red Cell Distribution Width 15.9 % (11.5-17.5); Red Cell Distribution Width-SD 50.2 fL; White Blood Count 9.7 K/mm3 (4.8-10.8)
[2024-10-11 18:45] LABS: Albumin Level 3.5 g/dl (3.5-5.0); Chloride 101 mmol/L (98-107); Sodium 135 mmol/L (136-145)
[2024-10-11 18:46] LABS: Potassium 4.2 mmoL/L (3.5-5.1)
[2024-10-11 18:48] LABS: Alanine Aminotransferase 13 U/L (12-78); Alkaline Phosphatase 77 U/L (38-126); Anion Gap 9.2 mEq/L (5-15); Aspartate Amino Transferase 20 U/L (17-59); Bilirubin,Total 0.6 mg/dl (0.2-1.3); Blood Urea Nitrogen 15 mg/dl (9-20); Carbon Dioxide 29 mmol/L (22.0-30.0); Creatinine Clearance Estimated 58 mL/min (50-200); Estimated Glomerular Filt Rate 135 ml/min (>60); GFR (African American) 163 ML/MIN (>60)
[2024-10-11 18:49] LABS: Calcium 8.7 mg/dl (8.4-10.2); Globulin 3.5 g/dL (1.3-3.2); Glucose 103 mg/dl (74-100); INR 0.95 (0.9-1.1); Magnesium 1.8 mg/dl (1.6-2.3); Prothrombin Time 10.7 seconds (10.1-12.5)
[2024-10-11 18:53] LABS: VBG Base Excess 3.8 mmol/L (-2.4-2.3); VBG HCO3 28.7 mmol/L (23-30); VBG Oxygen Saturation 68.2 % (50-70); VBG PCO2 48.2 mmol/L (35-51); VBG PH 7.39 mmol/L (7.31-7.41); VBG PO2 36.5 mmol/L (28-40); VBG Total CO2 30.2 mmol/L (23-27)
[2024-10-11 18:58] LABS: NT Pro Brain Natriuretic Pep. 279 pg/mL (0-125)
[2024-10-11 19:03] LABS: Troponin I < 0.01 ng/ml (0.00-0.034)
[2024-10-11] MEDS: SODIUM CHLORIDE 0.9% 10ML SYR (RAD ONLY) 10 ML IV (19:07)
[2024-10-11] MEDS: 0.9 % SODIUM CHLORIDE 50 ML VIAL IV (19:07)
[2024-10-11] MEDS: IOPAMIDOL-370 (76%);100ML BOTTLE 70 ML IV (19:07)
[2024-10-11] MEDS: levoFLOXacin 750 MG TABLET PO (20:34)
== END 2024-10-11 20:42 | disposition home or self-care (01) ==
PROVIDERS: Physician Assistant; Emergency Provider Emergency Medicine; PCP Nurse Practitioner Family
DX: J18.9 Pneumonia, unspecified organism (principal); J21.9 Acute bronchiolitis, unspecified; J44.0 Chronic obstructive pulmonary disease with (acute) lower respiratory infection; R06.02 Shortness of breath; M25.511 Pain in right shoulder; M25.512 Pain in left shoulder; W19.XXXA Unspecified fall, initial encounter
CPT/HCPCS: 71275; 80053; 82803; 83735; 83880; 84145; 84484; 85025; 85610; 93005; 96374; 99291; J1100; J7614; Q9967

== ENCOUNTER 2024-11-03 01:06 | Inpatient (IN) | payer MEDICARE, MEDICAID, SELFPAY ==
[2024-11-03] VITALS (26 sets, daily range): BP systolic 88–124; BP diastolic 51–73; PULSE 70–95; RESP 16–44; TEMP 36.4–37.4; O2SAT 90–98; BMI 16.7; BMI 15.3
[2024-11-03] MEDS: IPRATROPIUM/ALBUTEROL 3 ML NEB 9 ML IH (01:15)
--- NOTE | 2024-11-03 01:18 | XR_ITS ---
PROCEDURE INFORMATION: Exam: XR Chest Exam date and time: 11/03/2024 1:44 AM Age: 64 years old Clinical indication: Shortness of breath; Additional info: SOA hypoxia TECHNIQUE: Imaging protocol: Radiologic exam of the chest. Views: 1 view. Total images: 2 COMPARISON: CT ANGIO CHEST PE PROTOCOL 10/11/2024 7:10 PM FINDINGS: Tubes, catheters and devices: EKG leads are present. Lungs: Severe COPD/centrilobular emphysema. Scattered interstitial fibrosis and scarring. Acute mild bibasilar infiltrates. No pulmonary vascular congestion. Calcified left hilar lymph node. Pleural spaces: Unremarkable. No pleural effusion. No pneumothorax. Heart/Mediastinum: Unremarkable. No cardiomegaly. No mediastinal widening or hilar enlargement. Bones/joints: Multiple remote bilateral rib fracture deformities. IMPRESSION: 1. Severe COPD/centrilobular emphysema. 2. Acute mild bibasilar infiltrates. 3. Scattered fibrosis and scarring.
[2024-11-03 01:26] LABS: Lactate Venous 1.1 mmol/L (0.4-2.0); VBG Base Excess 0.5 mmol/L (-2.4-2.3); VBG HCO3 26.2 mmol/L (23-30); VBG Oxygen Saturation 80.7 % (50-70); VBG PCO2 49.4 mmol/L (35-51); VBG PH 7.34 mmol/L (7.31-7.41); VBG Total CO2 27.8 mmol/L (23-27)
[2024-11-03 01:29] LABS: Basophils # 0.1 K/mm3 (0-0.2); Basophils % 0.5 % (0.1-2.0); Eosinophils # 0.1 Kmm3 (0.0-0.4); Eosinophils % 0.5 % (0.1-12.0); Hematocrit 38.9 % (42.0-52.0); Hemoglobin 12.6 g/dL (14.1-18.0); Immature Granulocytes # 0.02 10^3uL; Immature Granulocytes % 0.2 %; Mean Corpuscular HGB Conc 32.4 g/dL (31.8-35.4); Mean Corpuscular Volume 83.5 fl (80-94); Mean Platelet Volume 8.4 fl (7.4-10.4); Monocytes # 0.4 K/mm3 (0.1-1.0); Monocytes % 3.6 % (1.7-9.3); Neutrophils # 9.2 K/mm3 (1.8-7.8); Neutrophils % 86.2 % (37.0-80.0); Nucleated Red Blood Cells # 0 10^3/uL; Nucleated Red Blood Cells % 0 %; Platelet Count 385 K/mm3 (142-424); Red Blood Count 4.66 M/mm3 (4.60-6.20); Red Cell Distribution Width 16.4 % (11.5-17.5); White Blood Count 10.7 K/mm3 (4.8-10.8)
--- NOTE | 2024-11-03 01:29 | ECG_ITS ---
APPROVED REPORT Exam: Resting ECG HR:90 bpm ECG Measurements Heart Rate 90 AXES RI 141 P 82 QRSd 81 QRS 56 QT 348 T 83 QTc 396 Conclusion SINUS RHYTHM POSSIBLE ANTERIOR MYOCARDIAL INFARCTION , OF INDETERMINATE AGE [30 ms Q WAVE IN V3/V4, OR R < 0.2 mV IN V4] No STEMI Electronically signed by : BYRON JEONG, 11/03/2024 06:54:16
[2024-11-03] MEDS: ASPIRIN 81MG CHEWABLE TABLET 324 MG PO (01:34)
--- NOTE | 2024-11-03 01:42 | [facility].EDCP ---
Discharge Plan Disposition Patient Disposition: Admitted Condition: Fair Chief Complaint: Shortness of Breath/Dyspnea Clinical Impressions Clinical Impression: COPD exacerbation, Acute respiratory distress, Acute hypoxic respiratory failure Discharge ED Provider: Michelle Capps General Chief Complaint: Shortness of Breath/Dyspnea Stated Complaint: difficulty breathing Time Seen by Provider: 11/03/24 01:18 Mode of Arrival: Wheelchair Source of Information: Patient Description of Symptoms (Recalled from ER Triage Doc. by RN): Patient to ED in wheelchair for SOB. Patient states that this morning he was more SOA than normal requiring O2 throughout day, and three neb treatments without ease of breathing. Patient using accessory muscles and tachypneic in mid 30's. Inspirtory and expiratory wheezing noted. History of Present Illness HPI narrative: 64-year-old male with history of COPD, self-reported history of CHF, hypertension, hyperlipidemia, cardiomyopathy presents to the ER with concerns of shortness of breath. Patient reports he has been more short of breath today than normal and has required more home oxygen than normal. He also has tried taking his home nebulizer treatments without improvement. Patient states they are working on the insulation in his house and he went in the room where they were working and felt his lungs suddenly get worse and started having shortness of breath. He states he is also been having a dry, nonproductive cough. Patient reports his ribs are sore from coughing. He has no vomiting or diarrhea, no fevers or chills, no congestion or sore throat. No other associated symptoms. Related Data Home Medications ?Medication ?Instructions ?Recorded ?Confirmed albuterol sulfate 90 mcg/actuation 2 inh inhalation QIDP PRN 11/05/23 10/22/24 aerosol inhaler Shortness Of Breath Or Wheezing multivitamin 1 tab PO DAILY 11/05/23 10/22/24 gabapentin 600 mg tablet 600 mg PO 10/20/24 10/22/24 oxycodone-acetaminophen 7.5 mg-325 1 tab PO 10/20/24 10/22/24 mg tablet Previous Rx's ?Medication ?Instructions ?Recorded aspirin 81 mg tablet,delayed 81 mg PO DAILY 90 days #90 tabs 04/13/24 release carvedilol 3.125 mg tablet See Rx Instructions .Route 06/15/24 .COMPLEX #180 tabs sacubitril 24 mg-valsartan 26 mg 1 tab PO BID #60 tabs 06/15/24 tablet (Entresto) prednisone 20 mg tablet 40 mg (2 x 20 mg) PO DAILY 5 days 07/12/24 #10 tabs ipratropium 0.5 mg-albuterol 3 mg 3 ml inhalation QID PRN shortness 08/10/24 (2.5 mg base)/3 mL nebulization of breath or wheezing #180 mL soln cyclobenzaprine 10 mg tablet 10 mg PO Q8H muscle spasm 5 days 09/06/24 #15 tabs dexamethasone 6 mg tablet 6 mg PO DAILY #5 tabs 09/06/24 levofloxacin 750 mg tablet 750 mg PO DAILY 14 days #14 tabs 10/11/24 prednisone 50 mg tablet 50 mg PO DAILY 5 days #5 tabs 10/11/24 hydroxyzine pamoate 25 mg capsule 25 mg PO TID PRN itching #60 caps 10/20/24 (Vistaril) fluticasone fur. 100 mcg-umeclid 1 inh inhalation DAILY 90 days #90 10/22/24 62.5 mcg-vilant 25 mcg ea inhalat.powder (Trelegy Ellipta) atorvastatin 20 mg tablet See Rx Instructions .Route 10/23/24 .COMPLEX #90 tabs duloxetine 60 mg capsule,delayed 60 mg PO BID 90 days #180 caps 10/23/24 release Allergies Allergy/AdvReac Type Severity Reaction Status Date / Time methocarbamol (From ROBAXIN) Allergy Unknown Shakiness Verified 10/30/24 15:17 pregabalin (From LYRICA) Allergy Unknown Shakiness Verified 10/30/24 15:17 methadone Allergy Difficulty Verified 10/30/24 15:17 Breathing ibuprofen AdvReac Cramping Verified 10/30/24 15:17 of the Muscles [facility] Disclaimer: The information contained in this section may have been updated after the patient was seen, as this information can be updated by other users. Medical History Esophageal thickening Anxiety Solid nodule of lung greater than 8 mm in diameter COPD mixed type Nodule of left lung SIRS (systemic inflammatory response syndrome) Acute and chronic respiratory failure with hypoxia Postherpetic trigeminal neuralgia Encounter for screening for malignant neoplasm of lung in current smoker with 30 pack year history or greater Abnormal screening computed tomography (CT) of chest Nonischemic cardiomyopathy Diastolic dysfunction Elevated left ventricular end-diastolic pressure (LVEDP) Non-STEMI (non-ST elevated myocardial infarction) Emphysema/COPD Pneumonia due to gram-negative bacteria Low body mass index (BMI) COPD (chronic obstructive pulmonary disease) with acute bronchitis Upper respiratory infection Rhinovirus infection HLD (hyperlipidemia) Tobacco dependence syndrome Chest pain Cardiomyopathy Preoperative clearance Poisoning by opiate or related narcotic Atypical pneumonia Postherpetic neuralgia Left against medical advice HTN (hypertension) Elevated C-reactive protein CAP (community acquired pneumonia) COPD (chronic obstructive pulmonary disease) Pain, eye, right Herpes zoster ophthalmicus, right eye Eye pain Shingles Neuropathy Surgical History H/O cervical spine surgery H/O cardiac catheterization Family History Mother Lung cancer Family history of acute congestive heart failure Father Lung cancer Family history of acute congestive heart failure Social History Smoking Status: Former smoker tobacco type: cigarettes packs per day: 1 smoking status stop date: december 2021 second hand exposure: Yes alcohol intake: current alcohol intake frequency: holidays/special occasions only substance use type: denies use current occupational status: disabled Travel in the last 8 weeks?: None household members: children housing: house marital status: current occupational exposures/hazards: No pets and animals: No caffeine: Yes Other Medical History Have you received the Flu Vaccine for this season: No Have you received the Pneumonia Vaccine: Yes ROS Obtained: Yes Systems reviewed as appropriate & no additional complaints except as documented Per HPI Physical Exam General General appearance: alert Comment: Ill-appearing, tachypneic Head Head exam: atraumatic and normocephalic Eye Eye exam: Present PERRL and EOMI ENT ENT exam: Present mucous membranes moist Neck Neck exam: Present normal inspection and full ROM Chest Chest inspection: Present symmetric chest wall rise; Absent tenderness (No traumatic findings) Respiratory Respiratory exam: Present respiratory distress, wheezes (Diffuse inspiratory and expiratory), accessory muscle use and prolonged expiratory phase; Absent stridor Cardiovascular Cardiovascular exam: Present regular rate and normal rhythm Abdominal Exam Abdominal exam: Present soft; Absent distention, tenderness, guarding or rebound Extremities Exam Extremities exam: Present full ROM; Absent edema Neurological Exam Neurological exam: Present alert and oriented X3; Absent motor sensory deficit Psychiatric Psychiatric exam: Present normal affect and normal mood Skin Skin exam: Present warm and dry HEART Score HEART Score HEART Score assessment performed?: Yes History (anamnesis): Slightly suspicious ECG: Non-specific disturbance Age: >65 years Risk factors: Atherosclerosis history Troponin: </= normal limit HEART Score: 5 Procedures Miscellaneous Procedure Procedure Performed: Limited lung ultrasound A focused ultrasound exam of the pleural spaces was performed to evaluate for pneumothorax, pulmonary edema, pleural effusion and/or consolidation. The ultrasound was performed with the following indications, as noted in the H&P: Shortness of breath Identified structures: Bilateral thoracic cavities were examined. Findings: Lung sliding: - Present B-lines: Present the bilateral lung bases Pleural effusion: - Absent bilaterally Consolidation: Absent bilaterally Impression: - Pneumothorax bilaterally absent - Pleural effusion bilateral absent - B-lines bilaterally present at the bases - Consolidation bilaterally absent Images were saved to permanent archive The study was technically adequate CPT 35798-85 This study was performed by wy, and I personally interpreted all images/videos. Based on my clinical judgement, these images were adequate and did not necessitate further imaging. Limited Cardiac Ultrasound Indication: Shortness of breath Identified cardiac views: [-Cardiac subxiphoid] Other cardiac views were not able to be obtained secondary to poor acoustic windows Findings: Cardiac activity present with no gross wall motion abnormality, no pericardial effusion, no evidence of right heart strain within the limits of this exam Impression: Cardiac activity present with no gross wall motion abnormality, no pericardial effusion, no evidence of right heart strain within the limits of this exam Images were saved to permanent archive The study was technically adequate CPT: 30768 This study was performed by me, and I personally interpreted all images/videos. Based on my clinical judgement, these images were adequate and did not necessitate further imaging. Critical Care Critical Care Time Critical Care Time: Yes Attestation: On 11/03/24, the high probability of a clinically significant, sudden or life threatening deterioration of the following system(s) required my full and direct attention, intervention and personal management. The time I documented below is in addition to time spent performing reported procedures but includes the following listed in this critical care notation. Total Time Total Critical Care Time: 35 Medical Decision Making Medical Records Medical records reviewed: Yes I reviewed the patient's medical records. Marck Inquiry Pt receiving controlled substance: No Vital Signs Vital Signs: 11/03/24 01:19 11/03/24 01:24 11/03/24 01:27 Temperature 99.4 F Temperature Source Oral Pulse Rate 93 H 94 H Pulse Rate [Right] 92 H Respiratory Rate 36 H Blood Pressure 124/73 Blood Pressure [Left Arm] 124/73 Blood Pressure Mean Blood Pressure Mean [Left Arm] 90 Blood Pressure Source [Left Arm] Automatic Cuff Blood Pressure Position [Left Arm] Sitting 02 Sat by Pulse Oximetry 96 96 Oxygen Delivery Method Nasal Cannula Nasal Cannula Oxygen Flow Rate (LPM) 4 4 Fraction of Inspired Oxygen 11/03/24 01:30 11/03/24 01:45 11/03/24 02:00 Temperature Temperature Source Pulse Rate 91 H 95 H 91 H Pulse Rate [Right] Respiratory Rate 41 H 44 H Blood Pressure 123/68 115/61 Blood Pressure [Left Arm] Blood Pressure Mean 86 Blood Pressure Mean [Left Arm] Blood Pressure Source [Left Arm] Blood Pressure Position [Left Arm] 02 Sat by Pulse Oximetry 98 91 L Oxygen Delivery Method Aerosol Mask Oxygen Flow Rate (LPM) Fraction of Inspired Oxygen 11/03/24 02:30 11/03/24 03:43 11/03/24 04:06 Temperature Temperature Source Pulse Rate 94 H 79 Pulse Rate [Right] Respiratory Rate 36 H Blood Pressure 110/62 Blood Pressure [Left Arm] Blood Pressure Mean Blood Pressure Mean [Left Arm] Blood Pressure Source [Left Arm] Blood Pressure Position [Left Arm] 02 Sat by Pulse Oximetry 91 L Oxygen Delivery Method Nasal Cannula Oxygen Flow Rate (LPM) 4 Fraction of Inspired Oxygen 25 Lab Data Labs: Lab Results 11/03/24 01:20: WBC 10.7, RBC 4.66, Hgb 12.6 L, Hct 38.9 L, MCV 83.5, MCH 27.0, MCHC 32.4, RDW 16.4, Plt Count 385, MPV 8.4, Neut % (Auto) 86.2 H, Lymph % (Auto) 9.0 L, Callaway % (Auto) 3.6, Eos % (Auto) 0.5, Baso % (Auto) 0.5, Neut # (Auto) 9.2 H, Lymph # (Auto) 1.0, [place] # (Auto) 0.4, Eos # (Auto) 0.1, Baso # (Auto) 0.1, PT 11.4, INR 1.03, Sodium 132 L, Potassium 4.2, Chloride 100, Carbon Dioxide 26, Anion Gap 10.2, BUN 12, Creatinine 0.70, Estimated Creat Clear 61, Estimated GFR 113, Est GFR ( Amer) 137, Glucose 115 H, Calcium 8.9, Total Bilirubin 0.6, AST 23, ALT 14, Alkaline Phosphatase 95, Troponin I < 0.01, NT-Pro-B Natriuret Pep 389 H, Total Protein 7.3, Albumin 4.2, Globulin 3.1, Albumin/Globulin Ratio 1.4 11/03/24 01:21: VBG pH 7.34, VBG pCO2 49.4, VBG pO2 49.0 H, VBG HCO3 26.2, VBG Total CO2 27.8 H, VBG O2 Saturation 80.7 H, VBG Base Excess 0.5, VBG Lactic Acid 1.1 11/03/24 01:20 11/03/24 01:20 Response Orders (Tests/Meds): ED MEDICATIONS Generic Name Dose Route Start Last Admin Trade Name Freq PRN Reason Stop Dose Admin Albuterol/Ipratropium 3 ml 11/03/24 06:00 Ipratropium/Albuterol 3 Ml [facility] 12/03/24 05:59 Q4RT MARCELA Methylprednisolone Sodium Succinate 40 mg 11/03/24 04:15 Methylprednisolone Sod Succ 40mg Vial IV 12/03/24 04:14 Q12H MARCELA Discontinued Medications Generic Name Dose Route Start Last Admin Trade Name Freq PRN Reason Stop Dose Admin Albuterol Sulfate 20 mg 11/03/24 03:30 11/03/24 03:45 Albuterol 0.083% 2.5 Mg/3 Ml [facility] 11/03/24 03:31 20 mg ONCE ONE Administration Albuterol/Ipratropium 9 ml 11/03/24 01:18 11/03/24 01:15 Ipratropium/Albuterol 3 Ml [facility] 11/03/24 01:19 9 ml ONCE ONE Administration Aspirin 324 mg 11/03/24 01:18 11/03/24 01:34 Aspirin 81mg Chewable Tablet PO 11/03/24 01:19 324 mg ONCE ONE Administration Ceftriaxone Sodium 1 gm/ 50 mls @ 100 mls/hr 05/20/25 03:34 11/03/24 03:44 Sodium Chloride IV 11/03/24 04:03 100 mls/hr ONCE ONE Administration Iopamidol 70 ml 11/03/24 02:47 11/03/24 02:48 Iopamidol-370 (76%);100ml Bottle IV 11/03/24 02:48 70 ml ONCE ONE Administration Sodium Chloride 50 ml 11/03/24 02:47 11/03/24 02:48 0.9 % Sodium Chloride 50 Ml Vial IV 11/03/24 02:48 50 ml ONCE ONE Administration Sodium Chloride 10 ml 11/03/24 02:47 11/03/24 02:48 Sodium Chloride 0.9% 10ml Syr (Rad Only) IV 11/03/24 02:48 10 ml ONCE ONE Administration ORDERS Category Date Time Status CT angio chest PE protocol Stat Cat Scan 11/03/24 02:10 Completed POCUS Point of Care (ER Only) Stat Exams 11/03/24 01:18 Completed XR chest portable Stat Exams 11/03/24 01:18 Completed Complete Blood Count Auto Diff Stat Lab 11/03/24 01:20 Completed Comprehensive Metabolic Panel Stat Lab 11/03/24 01:20 Completed Full Resp Panel w/COVID ([facility]) Routine Lab 11/03/24 03:24 Received NT Pro Brain Natriuretic Pep. Stat Lab 11/03/24 01:20 Completed Prothrombin Time INR Stat Lab 11/03/24 01:20 Completed Troponin I Q3H Lab 11/03/24 04:30 Ordered Troponin I Q3H Lab 11/03/24 07:30 Ordered Troponin I Stat Lab 11/03/24 01:20 Completed Venous Blood Gas Stat RT 11/03/24 01:21 Completed MDM Narrative Medical Decision Narrative: In summary, this 64-year-old male with comorbidities described in the HPI which are not at goal therapy presents to the emergency department today with shortness of breath, cough, diffuse atraumatic rib pain. On initial evaluation patient is hemodynamically stable but is in respiratory distress tachypneic, hypoxic, using accessory muscles, prolonged expiratory phase, diffuse inspiratory and expiratory wheezing without rhonchi or rales, no peripheral edema, remainder of exam benign. Differential diagnosis includes but is not limited to COPD exacerbation, pneumonia, pneumothorax, PE, ACS, CHF exacerbation, pleural effusion, pericardial effusion, viral syndrome, among others. Ruling out the most morbid conditions for my assessment. Based on these concerns, I ordered serum labs, cardiac workup, VBG, CTA PE, I performed [id number] ultrasound at bedside and personally interpreted demonstrating B-lines at the bilateral lung bases, no pleural effusion or pericardial effusion, no evidence of right heart strain though cardiac views were limited secondary to poor acoustic windows, see procedure note for details. ECG personally interpreted demonstrates normal sinus rhythm, rate 90, normal axis, normal NH and QTc, no STEMI. Patient received DuoNebs, aspirin initial for treatment. He reports improvement of symptoms with DuoNebs. Labs personally reviewed demonstrate VBG with normal pH and pCO2, VBG lactic also normal. Reassuring against endorgan damage, it is possible that with patient's long duration of COPD that he is well compensated and still in exacerbation despite reassuring VBG, PT/INR normal, CBC with mild anemia improved from prior, no leukocytosis, CMP nonactionable, troponin undetectably low less than 0.01, BNP only slightly elevated at 389, without evidence of pleural effusion, significant pulmonary edema, or peripheral edema, I am not going to start patient on diuretic at this time. Chest x-ray personally interpreted demonstrates findings consistent with COPD, mild bibasilar infiltrate, see radiology read for final interpretation. CTA PE personally interpreted does not demonstrate obvious PE, there are mild bibasilar infiltrates, worse on the right than the left. See radiology read for final interpretation. With these findings patient was started on Rocephin for possible early pneumonia in the setting of COPD exacerbation. On reassessment patient continues to have elevated work of breathing with tachypnea. His lungs do sound somewhat better on exam however I think he would benefit from positive pressure ventilation for work of breathing. He is also receiving a continuous albuterol treatment. He is tolerating the NIPPV well at settings of 10/5, 25% FiO2, rate of 16. I discussed this case with the hospitalist including patient's status on BiPAP, lab and imaging findings, and response to treatment so far. She graciously except the patient for admission. Patient was admitted in stable condition.
[2024-11-03 01:45] LABS: Chloride 100 mmol/L (98-107)
[2024-11-03 01:46] LABS: Albumin Level 4.2 g/dl (3.5-5.0); Potassium 4.2 mmoL/L (3.5-5.1); Sodium 132 mmol/L (136-145)
[2024-11-03 01:48] LABS: Alanine Aminotransferase 14 U/L (12-78); Aspartate Amino Transferase 23 U/L (17-59); Blood Urea Nitrogen 12 mg/dl (9-20); Creatinine Clearance Estimated 61 mL/min (50-200); Estimated Glomerular Filt Rate 113 ml/min (>60); GFR (African American) 137 ML/MIN (>60)
[2024-11-03 01:49] LABS: Albumin/Globulin Ratio 1.4 (1.1-1.8); Alkaline Phosphatase 95 U/L (38-126); Anion Gap 10.2 mEq/L (5-15); Bilirubin,Total 0.6 mg/dl (0.2-1.3); Calcium 8.9 mg/dl (8.4-10.2); Carbon Dioxide 26 mmol/L (22.0-30.0); Globulin 3.1 g/dL (1.3-3.2); Glucose 115 mg/dl (74-100); Total Protein,Serum 7.3 g/dl (6.3-8.2)
[2024-11-03 01:50] LABS: INR 1.03 (0.9-1.1); Prothrombin Time 11.4 seconds (10.1-12.5)
[2024-11-03 01:58] LABS: NT Pro Brain Natriuretic Pep. 389 pg/mL (0-125)
--- NOTE | 2024-11-03 02:10 | CT_ITS ---
PROCEDURE INFORMATION: Exam: CTA Chest With Contrast Exam date and time: 11/03/2024 2:40 AM Age: 64 years old Clinical indication: Shortness of breath; Additional info: Acute SOA hypoxia TECHNIQUE: Imaging protocol: Computed tomographic angiography of the chest with contrast. Exam focused on the arteries. 3D rendering (Not supervised by radiologist): MIP and/or 3D reconstructed images were created by the technologist. Radiation optimization: All CT scans at this facility use at least one of these dose optimization techniques: automated exposure control; mA and/or kV adjustment per patient size (includes targeted exams where dose is matched to clinical indication); or iterative reconstruction. Contrast material: ISOVUE; Contrast volume: 70 ml; Contrast route: INTRAVENOUS (IV); COMPARISON: CT ANGIO CHEST PE PROTOCOL 10/11/2024 7:10 PM FINDINGS: Pulmonary arteries: Normal. No pulmonary emboli. Aorta: Unremarkable. No aortic aneurysm. No aortic dissection. Lungs: Extensive centrilobular emphysema. Patchy focal airspace disease is present anteriorly within the right upper lobe, in the lingula as well as throughout the right lower lobe and right middle lobe. Some changes are also noted in the left lung base. Pleural spaces: Unremarkable. No pneumothorax. No pleural effusion. Heart: Unremarkable. No cardiomegaly. No pericardial effusion. Coronary arteries: No coronary calcium noted. Lymph nodes: Calcified hilar lymph node. Bones/joints: Unremarkable. No acute fracture. Soft tissues: Unremarkable. IMPRESSION: 1. No evidence of pulmonary embolus. 2. Diffuse patchy infiltrates most prominent in the right lung base but also involving the right middle right upper lobes and the lingula. 3. Calcified left hilar lymph node consistent with prior granulomatous disease. COMMENTS: The presence of pulmonary emphysema on CT is an independent risk factor for lung cancer. In the absence of a history or active diagnosis of lung cancer, it is recommended that this patient with emphysema be evaluated for enrollment in a low dose CT lung cancer screening program.
[2024-11-03 02:11] LABS: Troponin I < 0.01 ng/ml (0.00-0.034)
[2024-11-03] MEDS: SODIUM CHLORIDE 0.9% 10ML SYR (RAD ONLY) 10 ML IV (02:48)
[2024-11-03] MEDS: IOPAMIDOL-370 (76%);100ML BOTTLE 70 ML IV (02:48)
[2024-11-03] MEDS: 0.9 % SODIUM CHLORIDE 50 ML VIAL IV (02:48)
[2024-11-03 03:26] LABS: Adenovirus,PCR Not Detected (NotDetected); Bordetella Pertussis Not Detected (NotDetected); Chlamydophila Pneumoniae, PCR Not Detected (NotDetected); Coronavirus 19, PCR Not Detected (NotDetected); Coronavirus 229E Not Detected (NotDetected); Coronavirus NL63 Not Detected (NotDetected); Coronavirus OC43 Not Detected (NotDetected); Coronovirus HKU1,PCR Not Detected (NotDetected); Human Metapneumovirus Not Detected (NotDetected); Influenza A, PCR Not Detected (NotDetected); Influenza AH1, 2009 Not Detected (NotDetected); Influenza AH1, PCR Not Detected (NotDetected); Influenza AH3,PCR Not Detected (NotDetected); Influenza B, PCR Not Detected (NotDetected); Mycoplasma Pneumoniae, PCR Not Detected (NotDetected); Parainfluenza 1, PCR Not Detected (NotDetected); Parainfluenza 2, PCR Not Detected (NotDetected); Parainfluenza 3, PCR Not Detected (NotDetected); Parainfluenza 4, PCR Not Detected (NotDetected); Respiratory Syncytial Virus Not Detected (NotDetected); Rhinovirus/Enterovirus Not Detected (NotDetected)
[2024-11-03] MEDS: CEFTRIAXONE 1 GM 1 GM in 0.9 % SODIUM CHLORIDE 50 ML IV (03:44)
[2024-11-03] MEDS: ALBUTEROL 0.083% 2.5 MG/3 ML NEB 20 MG IH (03:45)
--- NOTE | 2024-11-03 04:09 | PC.NURSE ---
Patient asleep. Respirations 30 at this time. Bed rails up and patient provided blanket for comfort. No needs voiced.
--- NOTE | 2024-11-03 04:27 | PC.NURSE ---
Report called to SAHRA Harris
--- NOTE | 2024-11-03 04:52 | PC.NURSE ---
Patient arrived to floor via stretcher from ED at 04:51.
[2024-11-03 05:13] LABS: Troponin I < 0.01 ng/ml (0.00-0.034)
[2024-11-03] MEDS: AZITHROMYCIN 500 MG in 0.9 % SODIUM CHLORIDE 250 ML 250 MG IV (05:50)
[2024-11-03] MEDS: METHYLPREDNISOLONE SOD SUCC 40MG VIAL 40 MG IV (05:50)
--- NOTE | 2024-11-03 06:04 | P.HP_ITS ---
<Statement entered by Vikas Leos MD - 11/09/24 16:59> Personally evaluated the patient and agree with the plan of care as outlined by the FINE PATCHER. History of Present Illness *Admission Date: 11/03/24 *Reason for visit:: Shortness of breath *History of present illness: This is a 64-year-old male with past medical history of COPD, tobacco use, hypertension, hyperlipidemia, diastolic dysfunction who presents emergency department today with complaints of acute shortness of breath. He reports being more short of breath than normal requiring more oxygen at home than normal. He states that he was taking his nebulizer treatments without improvement. He reports going into his home where they were working on insulation and felt his lungs suddenly get worse and started having acute shortness of breath. He reports dry nonproductive cough. Denies any fever or chills Upon arrival to the Emergency Department he was in florid respiratory distress requiring BiPAP for rescue. Diffuse wheezing noted on exam upon arrival to emergency department. After multiple nebulizer treatments he did have improvement in symptoms. Respiratory symptoms improved on BiPAP as well. Further emergency department workup notable for proBNP of 389, respiratory panel negative. Diffuse patchy infiltrates within the right lung base and right middle and right upper lobes consistent with likely infectious inflammatory disease. He was medicated with nebulizers, corticosteroids antibiotics in Emergency Department admitted to hospitalist [facility] Disclaimer: The information contained in this section may have been updated after the patient was seen, as this information can be updated by other users. Medical History Esophageal thickening Anxiety Solid nodule of lung greater than 8 mm in diameter COPD mixed type Nodule of left lung SIRS (systemic inflammatory response syndrome) Acute and chronic respiratory failure with hypoxia Postherpetic trigeminal neuralgia Encounter for screening for malignant neoplasm of lung in current smoker with 30 pack year history or greater Abnormal screening computed tomography (CT) of chest Nonischemic cardiomyopathy Diastolic dysfunction Elevated left ventricular end-diastolic pressure (LVEDP) Non-STEMI (non-ST elevated myocardial infarction) Emphysema/COPD Pneumonia due to gram-negative bacteria Low body mass index (BMI) COPD (chronic obstructive pulmonary disease) with acute bronchitis Upper respiratory infection Rhinovirus infection HLD (hyperlipidemia) Tobacco dependence syndrome Chest pain Cardiomyopathy Preoperative clearance Poisoning by opiate or related narcotic Atypical pneumonia Postherpetic neuralgia Left against medical advice HTN (hypertension) Elevated C-reactive protein CAP (community acquired pneumonia) COPD (chronic obstructive pulmonary disease) Pain, eye, right Herpes zoster ophthalmicus, right eye Eye pain Shingles Neuropathy Surgical History H/O cervical spine surgery H/O cardiac catheterization Family History Mother Lung cancer Family history of acute congestive heart failure Father Lung cancer Family history of acute congestive heart failure Social History (Updated 11/03/24 @ 05:39 by Vandana Salas RN) Smoking Status: Former smoker tobacco type: cigarettes packs per day: 1 smoking status stop date: december 2021 second hand exposure: Yes alcohol intake: former substance use type: denies use current occupational status: disabled Travel in the last 8 weeks?: None household members: children housing: house marital status: current occupational exposures/hazards: No pets and animals: No caffeine: Yes Contact w/someone who lives/traveled outside [place] past 30 days?: No Exposure to someone with infectious disease in past 14 days?: No Do you have a fever (greater than 100.4 F or 38 C)?: No Have you tested positive for COVID-19?: No Exposed to someone with COVID-19 in past 14 days?: No Do you have a sore throat?: No Do you have a cough?: No Do you have any weakness?: No Are you experiencing any nausea/vomitting?: No Do you have any diarrhea?: No Are you experiencing any unusual bleeding?: No Do you have any muscle aches/pain?: No Do you have any abdominal pain?: No Are you experiencing loss of taste or smell?: No Other Medical History Have you received the Flu Vaccine for this season: No Have you received the Pneumonia Vaccine: No Review of Systems Review of Systems Review of systems:: pertinent systems reviewed and negative unless documented below Review of systems (narrative): Negative except for HPI Meds Home Medications and Allergies Home Medications ?Medication ?Instructions ?Recorded ?Confirmed ?Type albuterol sulfate 90 mcg/actuation 2 inh inhalation QIDP PRN 11/05/23 10/22/24 History aerosol inhaler Shortness Of Breath Or Wheezing multivitamin 1 tab PO DAILY 11/05/23 10/22/24 History aspirin 81 mg tablet,delayed 81 mg PO DAILY 90 days #90 tabs 04/13/24 10/22/24 Rx release carvedilol 3.125 mg tablet See Rx Instructions .Route 06/15/24 10/22/24 Rx .COMPLEX #180 tabs sacubitril 24 mg-valsartan 26 mg 1 tab PO BID #60 tabs 06/15/24 10/22/24 Rx tablet (Entresto) prednisone 20 mg tablet 40 mg (2 x 20 mg) PO DAILY 5 days 07/12/24 10/22/24 Rx #10 tabs ipratropium 0.5 mg-albuterol 3 mg 3 ml inhalation QID PRN shortness 08/10/24 10/22/24 Rx (2.5 mg base)/3 mL nebulization of breath or wheezing #180 mL soln cyclobenzaprine 10 mg tablet 10 mg PO Q8H muscle spasm 5 days 09/06/24 10/22/24 Rx #15 tabs dexamethasone 6 mg tablet 6 mg PO DAILY #5 tabs 09/06/24 10/22/24 Rx levofloxacin 750 mg tablet 750 mg PO DAILY 14 days #14 tabs 10/11/24 10/22/24 Rx prednisone 50 mg tablet 50 mg PO DAILY 5 days #5 tabs 10/11/24 10/22/24 Rx gabapentin 600 mg tablet 600 mg PO 10/20/24 10/22/24 History hydroxyzine pamoate 25 mg capsule 25 mg PO TID PRN itching #60 caps 10/20/24 10/22/24 Rx (Vistaril) oxycodone-acetaminophen 7.5 mg-325 1 tab PO 10/20/24 10/22/24 History mg tablet fluticasone fur. 100 mcg-umeclid 1 inh inhalation DAILY 90 days #90 10/22/24 10/22/24 Rx 62.5 mcg-vilant 25 mcg ea inhalat.powder (Trelegy Ellipta) atorvastatin 20 mg tablet See Rx Instructions .Route 10/23/24 10/30/24 Rx .COMPLEX #90 tabs duloxetine 60 mg capsule,delayed 60 mg PO BID 90 days #180 caps 10/23/24 10/30/24 Rx release New Prescriptions to Start Prescriptions: Allergies Allergy/AdvReac Type Severity Reaction Status Date / Time methocarbamol (From ROBAXIN) Allergy Unknown Shakiness Verified 10/30/24 15:17 pregabalin (From LYRICA) Allergy Unknown Shakiness Verified 10/30/24 15:17 methadone Allergy Difficulty Verified 10/30/24 15:17 Breathing ibuprofen AdvReac Cramping Verified 10/30/24 15:17 of the Muscles Exam Data for Last 24 hours Vital signs and Labs for Last 24 Hours: Temp Pulse Resp BP Pulse Ox O2 Del Method O2 Flow Rate 99.0 F 95 H 32 H 98/60 L 93 L BiPAP 4 11/03/24 04:28 11/03/24 04:30 11/03/24 04:30 11/03/24 04:30 11/03/24 04:30 11/03/24 05:17 11/03/24 04:30 FiO2 11/03/24 03:43 Laboratory Results - last 24 hr 11/03/24 01:20: WBC 10.7, RBC 4.66, Hgb 12.6 L, Hct 38.9 L, MCV 83.5, MCH 27.0, MCHC 32.4, RDW 16.4, Plt Count 385, MPV 8.4, Neut % (Auto) 86.2 H, Lymph % (Auto) 9.0 L, [place] % (Auto) 3.6, Eos % (Auto) 0.5, Baso % (Auto) 0.5, Neut # (Auto) 9.2 H, Lymph # (Auto) 1.0, [place] # (Auto) 0.4, Eos # (Auto) 0.1, Baso # (Auto) 0.1, PT 11.4, INR 1.03, Sodium 132 L, Potassium 4.2, Chloride 100, Carbon Dioxide 26, Anion Gap 10.2, BUN 12, Creatinine 0.70, Estimated Creat Clear 61, Estimated GFR 113, Est GFR ( Amer) 137, Glucose 115 H, Calcium 8.9, Total Bilirubin 0.6, AST 23, ALT 14, Alkaline Phosphatase 95, Troponin I < 0.01, NT-Pro-B Natriuret Pep 389 H, Total Protein 7.3, Albumin 4.2, Globulin 3.1, Albumin/Globulin Ratio 1.4 11/03/24 01:21: VBG pH 7.34, VBG pCO2 49.4, VBG pO2 49.0 H, VBG HCO3 26.2, VBG Total CO2 27.8 H, VBG O2 Saturation 80.7 H, VBG Base Excess 0.5, VBG Lactic Acid 1.1 11/03/24 03:24: Chlamy pneumoniae PCR Not detected, Adenovirus (PCR) Not detected, B. pertussis DNA (PCR) Not detected, Coronavirus OC43 (PCR) Not detected, Coronavirus HKU1 (PCR) Not detected, Coronavirus 229E (PCR) Not detected, SARS-CoV-2 (PCR) Not detected, Coronavirus NL63 (PCR) Not detected, Human Metapneumovir PCR Not detected, Influenza A (H1) PCR Not detected, Influ A (H1N1/09) PCR Not detected, Influenza A (H3) PCR Not detected, Influenza Type A (PCR) Not detected, Influenza Type B (PCR) Not detected, M. pneumoniae (PCR) Not detected, Parainfluenza 1 (PCR) Not detected, Parainfluenza 2 (PCR) Not detected, Parainfluenza 3 (PCR) Not detected, Parainfluenza 4 (PCR) Not detected, RSV (PCR) Not detected, Entero/Rhino (PCR) Not detected 11/03/24 04:42: Troponin I < 0.01 I & O for Last 24 hours: Intake & Output 10/31/24 11/01/24 11/02/24 11/03/24 23:59 23:59 23:59 23:59 Weight 58.967 kg Constitutional Constitutional: no acute distress *Routine HEENT Exam Head: Present normocephalic Eye: Present EOMI and PERRL ENT: Present mucous membranes moist *Routine Neck Exam Neck: Present supple; Absent lymphadenopathy *Routine Respiratory Exam Respiratory: Present prolonged expiratory phase and wheezes *Routine Cardiovascular Exam Cardiovascular: Present RRR *Routine Abdominal Exam Abdominal: Present soft and normoactive bowel sounds; Absent tenderness *Routine Rectal Exam Rectal:: deferred *Routine Genitalia Exam Genitalia:: deferred *Routine Extremities Exam Extremities: Absent cyanosis, clubbing or edema *Routine Skin Exam Skin: Present warm; Absent rash *Routine Neurological Exam Neurological: Present alert and oriented X3 Assessment and Plan *Assessment and plan (1) Acute hypoxic respiratory failure: Status: Acute Category: Medical Code(s): J96.01 - Acute respiratory failure with hypoxia (2) Multifocal pneumonia: Status: Acute Category: Medical Code(s): J18.9 - Pneumonia, unspecified organism (3) COPD exacerbation: Status: Acute Category: Medical Code(s): J44.1 - Chronic obstructive pulmonary disease with (acute) exacerbation (4) HTN (hypertension): Status: Chronic Qualifiers: Hypertension type: essential hypertension Qualified Code(s): I10 - Essential (primary) hypertension Category: Medical Code(s): I10 - Essential (primary) hypertension (5) HLD (hyperlipidemia): Status: Chronic Qualifiers: Hyperlipidemia type: mixed hyperlipidemia Qualified Code(s): E78.2 - Mixed hyperlipidemia Category: Medical Code(s): E78.5 - Hyperlipidemia, unspecified Plan #Acute on chronic respiratory failure with hypoxia #COPD exacerbation Diffuse wheezing upon arrival with respiratory distress. Improved on BiPAP. Can likely transition to CPAP at this time Pulmonology consult this a.m. Continue bronchodilators and corticosteroid History pathogen panel negative #Multifocal pneumonia Right lower mid and upper lobe opacities Continue broad-spectrum antibiotic coverage #Hypertension #HLD Continue home medication
--- NOTE | 2024-11-03 06:24 | PC.NURSE ---
Called to bedside by RN due to Pts SPO2 86% Increased FiO2 from 25% to 40%. SOO2 97%. Will continue to monitor.
[2024-11-03 08:09] LABS: Troponin I < 0.01 ng/ml (0.00-0.034)
[2024-11-03] MEDS: BUDESONIDE 0.5MG/2ML NEB 0.5 MG IH ×2 (09:33→18:26)
[2024-11-03] MEDS: IPRATROPIUM/ALBUTEROL 3 ML NEB IH ×3 (09:33→22:58)
--- NOTE | 2024-11-03 09:49 | EXP.PULM.CON ---
History of Present Illness History of present illness: Mr. Turk is a 64-year-old male greater than [id number] smoking history COPD presented to ER with worsening respiratory distress cough and productive phlegm. New oxygen requirement upon presentation to the ED [facility] Disclaimer: The information contained in this section may have been updated after the patient was seen, as this information can be updated by other users. Medical History Esophageal thickening Anxiety Solid nodule of lung greater than 8 mm in diameter COPD mixed type Nodule of left lung SIRS (systemic inflammatory response syndrome) Acute and chronic respiratory failure with hypoxia Postherpetic trigeminal neuralgia Encounter for screening for malignant neoplasm of lung in current smoker with 30 pack year history or greater Abnormal screening computed tomography (CT) of chest Nonischemic cardiomyopathy Diastolic dysfunction Elevated left ventricular end-diastolic pressure (LVEDP) Non-STEMI (non-ST elevated myocardial infarction) Emphysema/COPD Pneumonia due to gram-negative bacteria Low body mass index (BMI) COPD (chronic obstructive pulmonary disease) with acute bronchitis Upper respiratory infection Rhinovirus infection HLD (hyperlipidemia) Tobacco dependence syndrome Chest pain Cardiomyopathy Preoperative clearance Poisoning by opiate or related narcotic Atypical pneumonia Postherpetic neuralgia Left against medical advice HTN (hypertension) Elevated C-reactive protein CAP (community acquired pneumonia) COPD (chronic obstructive pulmonary disease) Pain, eye, right Herpes zoster ophthalmicus, right eye Eye pain Shingles Neuropathy Surgical History H/O cervical spine surgery H/O cardiac catheterization Family History Mother Lung cancer Family history of acute congestive heart failure Father Lung cancer Family history of acute congestive heart failure Social History (Updated 11/03/24 @ 05:39 by Vandana Salas RN) Smoking Status: Former smoker tobacco type: cigarettes packs per day: 1 smoking status stop date: december 2021 second hand exposure: Yes alcohol intake: former substance use type: denies use current occupational status: disabled Travel in the last 8 weeks?: None household members: children housing: house marital status: current occupational exposures/hazards: No pets and animals: No caffeine: Yes Contact w/someone who lives/traveled outside [place] past 30 days?: No Exposure to someone with infectious disease in past 14 days?: No Do you have a fever (greater than 100.4 F or 38 C)?: No Have you tested positive for COVID-19?: No Exposed to someone with COVID-19 in past 14 days?: No Do you have a sore throat?: No Do you have a cough?: No Do you have any weakness?: No Are you experiencing any nausea/vomitting?: No Do you have any diarrhea?: No Are you experiencing any unusual bleeding?: No Do you have any muscle aches/pain?: No Do you have any abdominal pain?: No Are you experiencing loss of taste or smell?: No Review of Systems Constitutional Constitutional: Reports anorexia, Reports body ache(s) and Reports fatigue Eyes Eyes: Denies eye discharge, Denies dry eyes, Denies irritation and Denies itchy eyes ENT Ears, Nose, Mouth, and Throat: Denies epistaxis, Denies facial pain, Denies lip swelling and Denies throat swelling *Cardiovascular Cardiovascular: Reports dyspnea and Reports dyspnea on exertion *Respiratory Respiratory: Reports change in phlegm color, Reports chest congestion, Reports cough, Reports dyspnea, Reports dyspnea on exertion, Reports excessive phlegm production and Reports wheezing *Gastrointestinal Gastrointestinal: Denies abdominal pain, Denies belching and Denies cramping *Musculoskeletal Musculoskeletal: Reports back pain, Reports myalgias and Reports other (No small joint swelling or Pain) Psychiatric Psychiatric: Denies homicidal ideation and Denies suicidal ideation Endocrine Endocrine: Reports fatigue and Denies heat intolerance Hematologic/Lymphatic Hematologic/Lymphatic: Denies easy bleeding and Denies lymphadenopathy Allergic/Immunologic Allergic/Immunologic: Denies itchy eyes, Denies lip swelling, Denies throat swelling and Reports wheezing Pulmonology Exam Inpatient Vital signs and Labs for Last 24 Hours: Temp Pulse Resp BP Pulse Ox O2 Del Method O2 Flow Rate 98.3 F 86 30 H 97/58 L 93 L Nasal Cannula 3 11/03/24 08:00 11/03/24 09:36 11/03/24 06:00 11/03/24 06:00 11/03/24 09:36 11/03/24 09:36 11/03/24 09:36 FiO2 25 11/03/24 03:43 Laboratory Results - last 24 hr 11/03/24 01:20: WBC 10.7, RBC 4.66, Hgb 12.6 L, Hct 38.9 L, MCV 83.5, MCH 27.0, MCHC 32.4, RDW 16.4, Plt Count 385, MPV 8.4, Neut % (Auto) 86.2 H, Lymph % (Auto) 9.0 L, [place] % (Auto) 3.6, Eos % (Auto) 0.5, Baso % (Auto) 0.5, Neut # (Auto) 9.2 H, Lymph # (Auto) 1.0, [place] # (Auto) 0.4, Eos # (Auto) 0.1, Baso # (Auto) 0.1, PT 11.4, INR 1.03, Sodium 132 L, Potassium 4.2, Chloride 100, Carbon Dioxide 26, Anion Gap 10.2, BUN 12, Creatinine 0.70, Estimated Creat Clear 61, Estimated GFR 113, Est GFR ( Amer) 137, Glucose 115 H, Calcium 8.9, Total Bilirubin 0.6, AST 23, ALT 14, Alkaline Phosphatase 95, Troponin I < 0.01, NT-Pro-B Natriuret Pep 389 H, Total Protein 7.3, Albumin 4.2, Globulin 3.1, Albumin/Globulin Ratio 1.4 11/03/24 01:21: VBG pH 7.34, VBG pCO2 49.4, VBG pO2 49.0 H, VBG HCO3 26.2, VBG Total CO2 27.8 H, VBG O2 Saturation 80.7 H, VBG Base Excess 0.5, VBG Lactic Acid 1.1 11/03/24 03:24: Chlamy pneumoniae PCR Not detected, Adenovirus (PCR) Not detected, B. pertussis DNA (PCR) Not detected, Coronavirus OC43 (PCR) Not detected, Coronavirus HKU1 (PCR) Not detected, Coronavirus 229E (PCR) Not detected, SARS-CoV-2 (PCR) Not detected, Coronavirus NL63 (PCR) Not detected, Human Metapneumovir PCR Not detected, Influenza A (H1) PCR Not detected, Influ A (H1N1/09) PCR Not detected, Influenza A (H3) PCR Not detected, Influenza Type A (PCR) Not detected, Influenza Type B (PCR) Not detected, M. pneumoniae (PCR) Not detected, Parainfluenza 1 (PCR) Not detected, Parainfluenza 2 (PCR) Not detected, Parainfluenza 3 (PCR) Not detected, Parainfluenza 4 (PCR) Not detected, RSV (PCR) Not detected, Entero/Rhino (PCR) Not detected 11/03/24 04:42: Troponin I < 0.01, Procalcitonin 0.220 11/03/24 07:29: Troponin I < 0.01 I & O for Labs for Last 24 Hours: Intake & Output 10/31/24 11/01/24 11/02/24 11/03/24 23:59 23:59 23:59 23:59 Intake Total 250 / 250 Output Total 200 / 200 Balance 50 / 50 Weight 119 lb 7 oz Microbiology Reports for the Last 24 Hours: Microbiology 11/03/24 05:00 Sputum - Expectorated Sputum Gram Stain - Final Constitutional: Present moderate distress Head: Present normocephalic and atraumatic ENT: Present normal exam, normal oropharynx and mucous membranes moist Neck: Present normal inspection and full ROM Respiratory: Present prolonged expiratory phase, respiratory distress, rhonchi, wheezes and able to speak in complete sentences Cardiac: Present S1/S2, Tachycardia and radial pulses present GI: Present soft and distention; Absent tenderness or guarding Skin: Present intact; Absent cyanosis or jaundice Neuro: Present alert, awake and oriented x 3 Extremities: Present normal inspection; Absent clubbing or cyanosis Psychiatric: Present normal affect and cooperative Meds Home Medications and Allergies Home Medications ?Medication ?Instructions ?Recorded ?Confirmed ?Type albuterol sulfate 90 mcg/actuation 2 inh inhalation QIDP PRN 11/05/23 11/03/24 History aerosol inhaler Shortness Of Breath Or Wheezing sacubitril 24 mg-valsartan 26 mg 1 tab PO BID #60 tabs 06/15/24 11/03/24 Rx tablet (Entresto) ipratropium 0.5 mg-albuterol 3 mg 3 ml inhalation QID PRN shortness 08/10/24 11/03/24 Rx (2.5 mg base)/3 mL nebulization of breath or wheezing #180 mL soln gabapentin 600 mg tablet 600 mg PO TID 10/20/24 11/03/24 History hydroxyzine pamoate 25 mg capsule 25 mg PO TID PRN itching #60 caps 10/20/24 11/03/24 Rx (Vistaril) oxycodone-acetaminophen 7.5 mg-325 1 tab PO TID 10/20/24 11/03/24 History mg tablet duloxetine 60 mg capsule,delayed 60 mg PO BID 90 days #180 caps 10/23/24 11/03/24 Rx release atorvastatin 20 mg tablet 20 mg PO HS 11/03/24 11/03/24 History carvedilol 3.125 mg tablet 3.125 mg PO BID 11/03/24 11/03/24 History fluticasone fur. 100 mcg-umeclid 1 ea inhalation DAILY 11/03/24 11/03/24 History 62.5 mcg-vilant 25 mcg inhalat.powder (Trelegy Ellipta) New Prescriptions to Start Prescriptions: Allergies Allergy/AdvReac Type Severity Reaction Status Date / Time methocarbamol (From ROBAXIN) Allergy Unknown Shakiness Verified 10/30/24 15:17 pregabalin (From LYRICA) Allergy Unknown Shakiness Verified 10/30/24 15:17 methadone Allergy Difficulty Verified 10/30/24 15:17 Breathing ibuprofen AdvReac Cramping Verified 10/30/24 15:17 of the Muscles Results Laboratory Findings 11/03/24 01:20 11/03/24 01:20 PT/INR, D-dimer PT 11.4 seconds (10.1-12.5) 11/03/24 01:20 INR 1.03 (0.9-1.1) 11/03/24 01:20 Abnormal lab findings: Abnormal Labs 11/03/24 11/03/24 01:20 01:21 Hgb 12.6 L Hct 38.9 L Neut % (Auto) 86.2 H Lymph % (Auto) 9.0 L Neut # (Auto) 9.2 H VBG pO2 49.0 H VBG Total CO2 27.8 H VBG O2 Saturation 80.7 H Sodium 132 L Glucose 115 H NT-Pro-B Natriuret Pep 389 H Assessment and Plan *Assessment and plan (1) Acute hypoxic respiratory failure: Status: Acute Category: Medical Code(s): J96.01 - Acute respiratory failure with hypoxia (2) Pneumonia: Status: Resolved Category: Medical Code(s): J18.9 - Pneumonia, unspecified organism Plan Mr. Turk is a 64-year-old male greater than [id number] smoking history COPD presented to ER with worsening respiratory distress cough and productive phlegm. New oxygen requirement upon presentation to the ED Afebrile. Hemodynamically stable. No significant trauma leukocytosis. Comprehensive respiratory viral PCR panel negative. Blood gas venous upon admission did not show any evidence of hypoxic/hypercarbic respiratory failure CTA upon admission no evidence of pulmonary embolism. Noted to have patchy airspace disease right greater than left significantly worsened from his most recent CT from 10/11/2024. Patient was discharged home recently on levofloxacin from ER for pneumonia. Chest bilateral wheezing with rhonchorous breath sounds Plan: Continue oxygen supplementation as needed to maintain O2 saturation goal of 90% and above Change antibiotics to Bactrim and clindamycin pending final culture results DuoNebs every 6 hours along with Pulmicort every 12 scheduled Discontinue methylprednisolone. Will closely monitor.
--- NOTE | 2024-11-03 10:35 | HMH.OTEV ---
OT Inpatient Evaluation Rehab OT IP Evaluation Start: 11/03/24 05:39 Freq: ONCE Status: Active Protocol: Document 11/03/24 10:20 [place] (Rec: 11/03/24 10:34 [facility] [id number]) Rehab OT IP Assessment Subjective History Pt oriented x 3 on arrival. Pt admitted on 11/03/24 due to COPD exacerbation. History and physical: This is a 64-year-old male with past medical history of COPD, tobacco use, hypertension, hyperlipidemia, diastolic dysfunction who presents emergency department today with complaints of acute shortness of breath. He reports being more short of breath than normal requiring more oxygen at home than normal. He states that he was taking his nebulizer treatments without improvement . He reports going into his home where they were working on insulation and felt his lungs suddenly get worse and started having acute shortness of breath. He reports dry nonproductive cough. Denies any fever or chills Upon arrival to the Emergency Department he was in florid respiratory distress requiring BiPAP for rescue. Diffuse wheezing noted on exam upon arrival to emergency department. After multiple nebulizer treatments he did have improvement in symptoms. Respiratory symptoms improved on BiPAP as well. Further emergency department workup notable for proBNP of 389, respiratory panel negative. Diffuse patchy infiltrates within the right lung base and right middle and right upper lobes consistent with likely infectious inflammatory disease. Subjective Pt reports prior to being in the hospital he lived with his daughter. Pt claims normally he is independent with ADLs. He does use a cane during functional mobility tasks. Pt is able to do simple IADLs, but daughter completes heavier seismograph recorder. Pt does still drive intermittently. He does use oxygen at home as well. Objective Patient Orientation Person,Place,Birthday Right Upper Extremity Gross ROM Min Limitation <25% Left Upper Extremity Gross ROM Min Limitation <25% Shoulder ROM Limitations Muscle Weakness Elbow ROM Limitations Muscle Weakness Wrist Limitations of Range of Motion Muscle Weakness Bed Mobility bed mobility-scooting,bed mobility - supine/sit Assist Level Contact Guard/Hand Hold Transfer Training Sit/Stand Transfer Assist Level Contact Guard/Hand Hold Lower Body Dressing Ability Minimal Assistance Rehab OT IP prob,goals,plan Problems Date of Evaluation: 11/03/24 OT IP Problems Bed Mobility,Transfers,Balance ,Self care,Safety Rehab Potential Rehab Potential Good Equipment Needs Assistive Devices Rolling / Wheeled Walker Plan OT intervention Plan Bed Mobility,Transfers,Balance ,Self care,Safety,Therapeutic Exercise OT Plan Frequency Daily Duration LOS Discharge Goals Bed Mobility Ability Standby Assistance Sit to Stand Chair Transfer Ability Supervision/Stand by Chair Transfer Ability Supervision/Stand by Chair Transfer Technique Sit to/from Ambulatory Chair Transfer Assistive Devices Rolling Walker Self care skills dressing/undressing independently Feeding Ability Assist with Tray Set Up Lower Body Dressing Ability Contact Guard Upper Body Dressing Ability Standby Assistance Bathing Ability Contact Guard Performing Toilet Hygiene Ability Contact Guard Overall Commode/Toilet Transfer Ability Contact Guard Commode/Toilet Transfer Technique Sit to/from Ambulatory Commode/Toilet Transfer Assistive Grab Bars Devices Oral Care Assist Standby Assistance Decrease in Endurance Yes Discharge Plan OT Discharge Plan Pt will continue to be seen for OT services while at [facility]. Pt can discharge home with daughter once he is medically stable per physician. Therapist does recommend OT evaluation upon discharge for continued skilled therapy. Continued skilled therapy is important in order for patient to improve strength, safety, endurance, ADL independence, and functional transfers to reach PLOF. Eval Complexity Eval Charge Codes 10404 - Moderate Complexity PHYSICIAN CERTIFICATION: I certify the specified therapy services for Radu Turk are required, authorized, and reviewed every 30 days.
--- NOTE | 2024-11-03 10:59 | HMH.PTEV ---
Physical Therapy Evaluation Rehab PT IP Evaluation Start: 11/03/24 05:39 Freq: ONCE Status: Active Protocol: Document 11/03/24 10:50 [place] (Rec: 11/03/24 10:59 [place] [id number]) Subjective/History History History Per H&P This is a 64-year-old male with past medical history of COPD, tobacco use, hypertension, hyperlipidemia, diastolic dysfunction who presents emergency department today with complaints of acute shortness of breath. He reports being more short of breath than normal requiring more oxygen at home than normal. He states that he was taking his nebulizer treatments without improvement . He reports going into his home where they were working on insulation and felt his lungs suddenly get worse and started having acute shortness of breath. He reports dry nonproductive cough. Denies any fever or chills Upon arrival to the Emergency Department he was in florid respiratory distress requiring BiPAP for rescue. Diffuse wheezing noted on exam upon arrival to emergency department. After multiple nebulizer treatments he did have improvement in symptoms. Respiratory symptoms improved on BiPAP as well. Further emergency department workup notable for proBNP of 389, respiratory panel negative. Diffuse patchy infiltrates within the right lung base and right middle and right upper lobes consistent with likely infectious inflammatory disease. He was medicated with nebulizers, corticosteroids antibiotics in Emergency Department admitted to hospitalist Subjective Subjective Pt reports prior to being in the hospital he lived with his daughter. Pt claims normally he is independent with ADLs and mobility using a SPC. Pt is still drive intermittently. Pt does use oxygen at home. [ End ] New diagnosis of cancer in past 12 No months? [facility] How much help from another person do you currently need... Turning from your back to your side None while in a flat bed without using bedrails? Moving from lying on back to sitting on None the side of a flat bed without using bedrails? Moving to and from a bed to a chair ( None including a wheelchair)? Standing up from a chair using your arms None ? (e.g., wheelchair, bedside chair) Walking in hospital room? A little Climbing 3-5 steps with a railing? A little Mobility Score 22 Mobility Level [facility] Mobility Calculator Mobility 7 Walk 25 feet or more Rehab PT IP Eval Objective Appearance Patient Behavior Appropriate,Cooperative Patient Orientation Person,Place Difficulty following instructions none Speech Pattern Clear Ambulation Patient Able to Ambulate Yes Ambulation Observation IP General Gait Pattern Observation Wide Based Gait Ambulation Distance (feet) 30 Ambulation Assistive Device Straight Cane Ambulation Ability Contact Guard/Hand Hold, Minimal x 1 (25% assist) Balance Ability to Arise Able, uses arms to help Sitting Balance Steady, safe Standing Balance Steady, wide stance Dynamic Sitting Balance Ability Good Transfers Bed Transfer Ability Independent Sit to Stand Bed Transfer Ability Supervision/Stand by Rehab PT IP prob,goals,plan Problems Date of Evaluation: 11/03/24 PT IP Problems Transfers,Gait,Balance Rehab Potential Rehab Potential Good Equipment Needs Assistive Devices Rolling / Wheeled Walker Plan PT Intervention Plan Transfers,Gait,Balance Other Intervention Plan 1-2 times PT Plan Frequency Daily Duration LOS Discharge Goals Bed Transfer Ability Independent Sit to Stand Chair Transfer Ability Independent Ambulation Assistive Device Rolling Walker Ambulation Distance (feet) 100 Discharge Plan PT Discharge Plan Initial physical therapy evaluation performed. Patient presents below baseline at this time in functional mobility, transfers, gait, and strength. Pt would benefit from skilled PT while at [facility] to prevent further functional decline and maximize safety with mobility. Pt safe to d/c home when deemed medically necessary d/t current level of mobility, home set-up, and family support. PT recommending home health PT services to address deficits. Eval Complexity Eval Charge Codes 32233 - Moderate Complexity PHYSICIAN CERTIFICATION: I certify the specified therapy services for Radu Turk are required, authorized, and reviewed every 30 days.
[2024-11-03] MEDS: GABAPENTIN 600MG TABLET 600 MG PO ×2 (11:59→20:15)
[2024-11-03] MEDS: OXYCODONE 7.5MG W/APAP 325MG TABLET 1 EACH PO ×2 (11:59→20:15)
[2024-11-03] MEDS: CLINDAMYCIN PHOSPHATE/D5W 900 MG/50 ML PIGGYBACK 100 MG IV ×2 (13:22→20:14)
--- NOTE | 2024-11-03 13:44 | SW/DCPLANNER ---
Addendum entered by Trudi Davies 11/03/24 14:39: [facility] is able to accept patient. Original Note: Spoke with patient once he is medically stable and ready for discharge if he would be interested in home health services. Patient stated that he would and that he thinks he could use them. Patient stated that he has no preference of whaty agency i send his information to. I faxed patient's info to [facility] and i will update once i hear back from [facility]. Wilton Garland
[2024-11-03] MEDS: TRIMETHOPRIM IV (13:56)
[2024-11-03] MEDS: SULFAMETHOXAZOLE IV (13:56)
[2024-11-03] MEDS: DEXTROSE IV (13:56)
[2024-11-03] MEDS: WATER IV (13:56)
--- NOTE | 2024-11-03 16:03 | PC.NURSE ---
VS stable and patient remained on 2LNC. Lung sounds expiratory wheezing on right, diminished on left. Patient alert and oriented times 4.
[2024-11-04] VITALS (8 sets, daily range): BP systolic 82–131; BP diastolic 41–72; PULSE 74–90; RESP 14–20; TEMP 36.3–36.7; O2SAT 88–93; BMI 34.7
[2024-11-04] MEDS: DEXTROSE IV ×2 (00:55→13:14)
[2024-11-04] MEDS: TRIMETHOPRIM IV ×2 (00:55→13:14)
[2024-11-04] MEDS: SULFAMETHOXAZOLE IV ×2 (00:55→13:14)
[2024-11-04] MEDS: WATER IV ×2 (00:55→13:14)
--- NOTE | 2024-11-04 03:41 | PC.NURSE ---
Pt AOx4. 3L O2 currently to maintain at 90%. He is currently resting in bed with eyes closed, respirations even and unlabored. Bed is low, locked, and call light is in reach.
[2024-11-04] MEDS: CLINDAMYCIN PHOSPHATE/D5W 900 MG/50 ML PIGGYBACK 100 MG IV ×2 (04:24→12:27)
[2024-11-04] MEDS: IPRATROPIUM/ALBUTEROL 3 ML NEB IH ×2 (06:06→11:23)
[2024-11-04] MEDS: BUDESONIDE 0.5MG/2ML NEB 0.5 MG IH (06:06)
[2024-11-04 06:46] LABS: Basophils % 0.2 % (0.1-2.0); Eosinophils # 0.1 Kmm3 (0.0-0.4); Eosinophils % 0.5 % (0.1-12.0); Hemoglobin 10.1 g/dL (14.1-18.0); Immature Granulocytes # 0.06 10^3uL; Immature Granulocytes % 0.5 %; Lymphocytes # 1.6 K/mm3 (0.7-4.5); Lymphocytes % 12.6 % (10-50); Mean Corpuscular HGB Conc 31.6 g/dL (31.8-35.4); Mean Corpuscular Hemoglobin 26.6 pg (27.0-31.2); Mean Corpuscular Volume 84.2 fl (80-94); Monocytes # 0.8 K/mm3 (0.1-1.0); Monocytes % 6.4 % (1.7-9.3); Neutrophils # 9.9 K/mm3 (1.8-7.8); Neutrophils % 79.8 % (37.0-80.0); Nucleated Red Blood Cells # 0 10^3/uL; Nucleated Red Blood Cells % 0 %; Platelet Count 329 K/mm3 (142-424); Red Cell Distribution Width 16.5 % (11.5-17.5); White Blood Count 12.4 K/mm3 (4.8-10.8)
[2024-11-04 06:50] LABS: Blood Urea Nitrogen 21 mg/dl (9-20); Calcium 8.3 mg/dl (8.4-10.2); Carbon Dioxide 29 mmol/L (22.0-30.0); Chloride 98 mmol/L (98-107); Creatinine Clearance Estimated 126 mL/min (50-200); Estimated Glomerular Filt Rate 84 ml/min (>60); GFR (African American) 102 ML/MIN (>60); Glucose 91 mg/dl (74-100); Sodium 133 mmol/L (136-145)
--- NOTE | 2024-11-04 09:33 | EXP.PULM.PN ---
Subjective *Date: 11/04/24 *Time: 13:43 Interval history: No acute respiratory vents overnight. Improving oxygen requirements. Pulmonology Exam Inpatient Vital signs and Labs for Last 24 Hours: Temp Pulse Resp BP Pulse Ox O2 Del Method O2 Flow Rate 97.9 F 85 20 131/59 L 90 L Nasal Cannula 2 11/04/24 08:00 11/04/24 08:00 11/04/24 08:00 11/04/24 08:00 11/04/24 08:00 11/04/24 08:00 11/04/24 08:00 FiO2 11/03/24 03:43 Laboratory Results - last 24 hr 11/04/24 05:28: WBC 12.4 H, RBC 3.80 L, Hgb 10.1 L, Hct 32.0 L, MCV 84.2, MCH 26.6 L, MCHC 31.6 L, RDW 16.5, Plt Count 329, MPV 9.0, Neut % (Auto) 79.8, Lymph % (Auto) 12.6, [place] % (Auto) 6.4, Eos % (Auto) 0.5, Baso % (Auto) 0.2, Neut # (Auto) 9.9 H, Lymph # (Auto) 1.6, [place] # (Auto) 0.8, Eos # (Auto) 0.1, Baso # (Auto) 0.0, Sodium 133 L, Potassium 4.0, Chloride 98, Carbon Dioxide 29, Anion Gap 10.0, BUN 21 H D, Creatinine 0.90 D, Estimated Creat Clear 126, Estimated GFR 84, Est GFR ( Amer) 102 D, Glucose 91, Calcium 8.3 L Temp Pulse Resp BP Pulse Ox O2 Del Method O2 Flow Rate 98.3 F 86 30 H 97/58 L 93 L Nasal Cannula 3 11/03/24 08:00 11/03/24 09:36 11/03/24 06:00 11/03/24 06:00 11/03/24 09:36 11/03/24 09:36 11/03/24 09:36 FiO2 25 11/03/24 03:43 Laboratory Results - last 24 hr 11/03/24 01:20: WBC 10.7, RBC 4.66, Hgb 12.6 L, Hct 38.9 L, MCV 83.5, MCH 27.0, MCHC 32.4, RDW 16.4, Plt Count 385, MPV 8.4, Neut % (Auto) 86.2 H, Lymph % (Auto) 9.0 L, [place] % (Auto) 3.6, Eos % (Auto) 0.5, Baso % (Auto) 0.5, Neut # (Auto) 9.2 H, Lymph # (Auto) 1.0, [place] # (Auto) 0.4, Eos # (Auto) 0.1, Baso # (Auto) 0.1, PT 11.4, INR 1.03, Sodium 132 L, Potassium 4.2, Chloride 100, Carbon Dioxide 26, Anion Gap 10.2, BUN 12, Creatinine 0.70, Estimated Creat Clear 61, Estimated GFR 113, Est GFR ( Amer) 137, Glucose 115 H, Calcium 8.9, Total Bilirubin 0.6, AST 23, ALT 14, Alkaline Phosphatase 95, Troponin I < 0.01, NT-Pro-B Natriuret Pep 389 H, Total Protein 7.3, Albumin 4.2, Globulin 3.1, Albumin/Globulin Ratio 1.4 11/03/24 01:21: VBG pH 7.34, VBG pCO2 49.4, VBG pO2 49.0 H, VBG HCO3 26.2, VBG Total CO2 27.8 H, VBG O2 Saturation 80.7 H, VBG Base Excess 0.5, VBG Lactic Acid 1.1 11/03/24 03:24: Chlamy pneumoniae PCR Not detected, Adenovirus (PCR) Not detected, B. pertussis DNA (PCR) Not detected, Coronavirus OC43 (PCR) Not detected, Coronavirus HKU1 (PCR) Not detected, Coronavirus 229E (PCR) Not detected, SARS-CoV-2 (PCR) Not detected, Coronavirus NL63 (PCR) Not detected, Human Metapneumovir PCR Not detected, Influenza A (H1) PCR Not detected, Influ A (H1N1/09) PCR Not detected, Influenza A (H3) PCR Not detected, Influenza Type A (PCR) Not detected, Influenza Type B (PCR) Not detected, M. pneumoniae (PCR) Not detected, Parainfluenza 1 (PCR) Not detected, Parainfluenza 2 (PCR) Not detected, Parainfluenza 3 (PCR) Not detected, Parainfluenza 4 (PCR) Not detected, RSV (PCR) Not detected, Entero/Rhino (PCR) Not detected 11/03/24 04:42: Troponin I < 0.01, Procalcitonin 0.220 11/03/24 07:29: Troponin I < 0.01 I & O for Labs for Last 24 Hours: Intake & Output 11/01/24 11/02/24 11/03/24 11/04/24 23:59 23:59 23:59 23:59 Intake Total 1150 / 1500 1310 / 1310 Output Total 200 / 200 Balance 950 / 1300 1310 / 1310 Weight 119 lb 7 oz 270 lb 11.642 oz Intake & Output 10/31/24 11/01/24 11/02/24 11/03/24 23:59 23:59 23:59 23:59 Intake Total 250 / 250 Output Total 200 / 200 Balance 50 / 50 Weight 119 lb 7 oz Microbiology Reports for the Last 24 Hours: Microbiology 11/03/24 05:00 Sputum - Expectorated Sputum Gram Stain - Final Microbiology 11/03/24 05:00 Sputum - Expectorated Sputum Gram Stain - Final Constitutional: Present moderate distress Head: Present normocephalic and atraumatic ENT: Present normal exam, normal oropharynx and mucous membranes moist Neck: Present normal inspection and full ROM Respiratory: Present prolonged expiratory phase, respiratory distress, rhonchi, wheezes and able to speak in complete sentences Cardiac: Present S1/S2, Tachycardia and radial pulses present GI: Present soft and distention; Absent tenderness or guarding Skin: Present intact; Absent cyanosis or jaundice Neuro: Present alert, awake and oriented x 3 Extremities: Present normal inspection; Absent clubbing or cyanosis Psychiatric: Present normal affect and cooperative Assessment and Plan *Assessment and plan (1) Acute hypoxic respiratory failure: Status: Acute Category: Medical Code(s): J96.01 - Acute respiratory failure with hypoxia (2) Pneumonia: Status: Resolved Category: Medical Code(s): J18.9 - Pneumonia, unspecified organism Plan Mr. Turk is a 64-year-old male greater than [id number] smoking history COPD presented to ER with worsening respiratory distress cough and productive phlegm. New oxygen requirement upon presentation to the ED Afebrile. Hemodynamically stable. No significant trauma leukocytosis. Comprehensive respiratory viral PCR panel negative. Blood gas venous upon admission did not show any evidence of hypoxic/hypercarbic respiratory failure CTA upon admission no evidence of pulmonary embolism. Noted to have patchy airspace disease right greater than left significantly worsened from his most recent CT from 10/11/2024. Patient was discharged home recently on levofloxacin from ER for pneumonia. Chest bilateral wheezing with rhonchorous breath sounds. Interval update: Slight worsening leukocytosis. Currently receiving Bactrim and clindamycin. Sputum cultures pending stable oxygen requirements. Sputum cultures many budding yeast and moderate gram-positive diplococci. Patient admits improving respiratory symptoms. Improving oxygen, though needing 2 L to maintain O2 saturation goal of 90% in the Plan: Incentive spirometry and flutter valve Continue oxygen supplementation as needed to maintain O2 saturation goal of 90% and above. Continue Bactrim and clindamycin to complete a total of 7-day course pending final culture results DuoNebs every 6 hours along with Pulmicort every 12 scheduled. Patient can be discharged home on Trelegy 100 inhaler along with DuoNebs 4 times daily. # Thank you for involving pulmonary in this patient care. Will follow the patient in pulmonary clinic 3 to 5 days postdischarge
[2024-11-04] MEDS: OXYCODONE 7.5MG W/APAP 325MG TABLET 1 EACH PO ×2 (09:54→12:29)
[2024-11-04] MEDS: GABAPENTIN 600MG TABLET 600 MG PO ×2 (09:54→12:30)
--- NOTE | 2024-11-04 11:49 | EXP.DC.SUM ---
General Admission date:: 11/03/24 HPI HPI HPI: This is a 64-year-old male with past medical history of COPD, tobacco use, hypertension, hyperlipidemia, diastolic dysfunction who presents emergency department today with complaints of acute shortness of breath. He reports being more short of breath than normal requiring more oxygen at home than normal. He states that he was taking his nebulizer treatments without improvement. He reports going into his home where they were working on insulation and felt his lungs suddenly get worse and started having acute shortness of breath. He reports dry nonproductive cough. Denies any fever or chills Upon arrival to the Emergency Department he was in florid respiratory distress requiring BiPAP for rescue. Diffuse wheezing noted on exam upon arrival to emergency department. After multiple nebulizer treatments he did have improvement in symptoms. Respiratory symptoms improved on BiPAP as well. Further emergency department workup notable for proBNP of 389, respiratory panel negative. Diffuse patchy infiltrates within the right lung base and right middle and right upper lobes consistent with likely infectious inflammatory disease. He was medicated with nebulizers, corticosteroids antibiotics in Emergency Department admitted to hospitalist Hospital Course Hospital Course Hospital Course: Radu Turk is a 64-year-old male with a medical history significant for COPD on 2.5 L baseline who presented with shortness of breath and was admitted for acute COPD exacerbation. #Acute on chronic hypoxic respiratory failure #Acute COPD exacerbation #Right lung community-acquired pneumonia ? Initially required BiPAP for increased work of breathing in the ED, though VBG did not show acute CO2 retention. ? CTA chest did not show PE, but did show infiltrates in the right middle and lower lobes. Pulmonology consulted, and started clindamycin and Bactrim. ? Clinically improved with antibiotics, breathing treatments, steroids. Weaned back to baseline 2.5 L. Ambulating without desaturations. ? Discharged with prednisone, Bactrim, clindamycin. Will closely follow-up with pulmonology within 2 weeks. ? Continue home Trelegy 100. #Chronic pain syndrome ? Continue home duloxetine, gabapentin, Percocet. Total time spent on discharge: 32 minutes on chart review, counseling, documentation, and direct care with patient. Exam Data for Last 24 hours Vital signs and Labs for Last 24 Hours: Temp Pulse Resp BP Pulse Ox O2 Del Method O2 Flow Rate 97.9 F 89 20 131/59 L 90 L Nasal Cannula 2.5 11/04/24 08:00 11/04/24 11:24 11/04/24 08:00 11/04/24 08:00 11/04/24 08:00 11/04/24 11:00 11/04/24 11:00 25 11/03/24 03:43 Laboratory Results - last 24 hr 11/04/24 05:28: WBC 12.4 H, RBC 3.80 L, Hgb 10.1 L, Hct 32.0 L, MCV 84.2, MCH 26.6 L, MCHC 31.6 L, RDW 16.5, Plt Count 329, MPV 9.0, Neut % (Auto) 79.8, Lymph % (Auto) 12.6, [place] % (Auto) 6.4, Eos % (Auto) 0.5, Baso % (Auto) 0.2, Neut # (Auto) 9.9 H, Lymph # (Auto) 1.6, [place] # (Auto) 0.8, Eos # (Auto) 0.1, Baso # (Auto) 0.0, Sodium 133 L, Potassium 4.0, Chloride 98, Carbon Dioxide 29, Anion Gap 10.0, BUN 21 H D, Creatinine 0.90 D, Estimated Creat Clear 126, Estimated GFR 84, Est GFR ( Amer) 102 D, Glucose 91, Calcium 8.3 L I & O for Last 24 hours: Intake & Output 11/01/24 11/02/24 11/03/24 11/04/24 23:59 23:59 23:59 23:59 Intake Total 1150 / 1500 1310 / 1310 Output Total 200 / 200 Balance 950 / 1300 1310 / 1310 Weight 54.176 kg 122.8 kg Microbiology Reports for the Last 24 Hours: Microbiology 11/03/24 05:00 Sputum - Expectorated Sputum Gram Stain - Final 11/03/24 05:00 Sputum - Expectorated Sputum Sputum Culture - Preliminary Constitutional Constitutional: no acute distress *Routine HEENT Exam Head: Present normocephalic Eye: Present EOMI and PERRL ENT: Present mucous membranes moist *Routine Neck Exam Neck: Present supple; Absent lymphadenopathy *Routine Respiratory Exam Respiratory: Present CTA bilaterally *Routine Cardiovascular Exam Cardiovascular: Present RRR *Routine Abdominal Exam Abdominal: Present soft and normoactive bowel sounds; Absent tenderness *Routine Extremities Exam Extremities: Absent cyanosis, clubbing or edema *Routine Skin Exam Skin: Present warm; Absent rash *Routine Neurological Exam Neurological: Present alert and oriented X3 Results Data Completed and Pending Labs on day of discharge: Labs from last 24 hours 11/04/24 05:28 WBC 12.4 H RBC 3.80 L Hgb 10.1 L Hct 32.0 L MCV 84.2 MCH 26.6 L MCHC 31.6 L RDW 16.5 Plt Count 329 MPV 9.0 Neut % (Auto) 79.8 Lymph % (Auto) 12.6 [place] % (Auto) 6.4 Eos % (Auto) 0.5 Baso % (Auto) 0.2 Neut # (Auto) 9.9 H Lymph # (Auto) 1.6 [place] # (Auto) 0.8 Eos # (Auto) 0.1 Baso # (Auto) 0.0 Sodium 133 L Potassium 4.0 Chloride 98 Carbon Dioxide 29 Anion Gap 10.0 BUN 21 H D Creatinine 0.90 D Estimated Creat Clear 126 Estimated GFR 84 Est GFR ( Amer) 102 D Glucose 91 Calcium 8.3 L Preliminary micro results at discharge 11/03/24 05:00 Sputum Culture - Preliminary Sputum - Expectorated Sputum DS: Diagnosis Discharge Diagnosis (1) Acute hypoxic respiratory failure: Status: Acute Code(s): J96.01 - Acute respiratory failure with hypoxia (2) Pneumonia: Status: Resolved Code(s): J18.9 - Pneumonia, unspecified organism Meds Home Medications and Allergies Home Medications ?Medication ?Instructions ?Recorded ?Confirmed ?Type albuterol sulfate 90 mcg/actuation 2 inh inhalation QIDP PRN 11/05/23 11/11/24 History aerosol inhaler Shortness Of Breath Or Wheezing gabapentin 600 mg tablet 600 mg PO TID 10/20/24 11/11/24 History oxycodone-acetaminophen 7.5 mg-325 1 tab PO TID 10/20/24 11/11/24 History mg tablet duloxetine 60 mg capsule,delayed 60 mg PO BID 90 days #180 caps 10/23/24 11/11/24 Rx release atorvastatin 20 mg tablet 20 mg PO HS 11/03/24 11/11/24 History carvedilol 3.125 mg tablet 3.125 mg PO BID 11/03/24 11/11/24 History fluticasone fur. 100 mcg-umeclid 1 ea inhalation DAILY 11/03/24 11/11/24 History 62.5 mcg-vilant 25 mcg inhalat.powder (Trelegy Ellipta) levofloxacin 750 mg tablet 750 mg PO DAILY 7 days #7 tabs 11/06/24 11/11/24 Rx bupropion HCl 75 mg tablet 75 mg PO DAILY #30 tabs 11/11/24 11/11/24 Rx prednisone 20 mg tablet 20 mg PO BID 5 days #10 tabs 11/11/24 11/11/24 Rx ipratropium 0.5 mg-albuterol 3 mg 3 ml inhalation QID PRN shortness 11/13/24 Rx (2.5 mg base)/3 mL nebulization of breath or wheezing #180 mL soln sacubitril 24 mg-valsartan 26 mg 1 tab PO BID #60 tabs 11/13/24 Rx tablet (Entresto) New Prescriptions to Start Prescriptions: levofloxacin Vikas Leos Allergies Allergy/AdvReac Type Severity Reaction Status Date / Time methocarbamol (From ROBAXIN) Allergy Unknown Shakiness Verified 11/11/24 09:29 pregabalin (From LYRICA) Allergy Unknown Shakiness Verified 11/11/24 09:29 methadone Allergy Difficulty Verified 11/11/24 09:29 Breathing ibuprofen AdvReac Cramping Verified 11/11/24 09:29 of the Muscles Discharge Plan Disposition Patient Disposition: Home Health Service Condition: Fair Discharge Order Discharge Orders: Discharge Order (Routine); Ordered 11/04/24 Ordered By: Vikas Leos Follow up Plan Follow up with: Cait Marcelo MD [Physician, Pulmonology] - 12/03/24 1:00 pm Prescriptions/Medication Reconciliation: New levofloxacin 750 mg tablet 750 mg PO DAILY 7 Days Qty: 7 0RF Continued gabapentin 600 mg tablet 600 mg PO TID oxycodone-acetaminophen 7.5-325 mg tablet 1 tab PO TID duloxetine 60 mg capsule,delayed release(DR/EC) 60 mg PO BID 90 Days Qty: 180 3RF albuterol sulfate 90 mcg/actuation HFA aerosol inhaler 2 inh INHALATION QIDP PRN (Reason: Shortness Of Breath Or Wheezing) Patient Comments: INHALE TWO PUFFS BY MOUTH FOUR TIMES DAILY NEEDED FOR SHORTNESS OF BREATH OR wheezing atorvastatin 20 mg tablet 20 mg PO HS carvedilol 3.125 mg tablet 3.125 mg PO BID Trelegy Ellipta 100-62.5-25 mcg blister with device 1 ea INHALATION DAILY Patient Comments: inhale 1 PUFF BY MOUTH ONCE A DAY No Action prednisone 20 mg tablet 20 mg PO BID 5 Days Qty: 10 0RF bupropion HCl 75 mg tablet 75 mg PO DAILY Qty: 30 2RF Entresto 24-26 mg tablet 1 tab PO BID Qty: 60 5RF ipratropium-albuterol 0.5 mg-3 mg(2.5 mg base)/3 mL solution for nebulization 3 ml IH QID PRN (Reason: shortness of breath or wheezing) Qty: 180 2RF Problem Reconciliation Problems Reviewed?: Yes Patient Discharge Instructions Patient Instructions: DI for Chronic Obstructive Pulmonary Disease, Stop Light COPD Print Language: Welsh Providers Primary Care Provider: Provider,Referral Admit Provider: Vikas Leos Attending Provider: Vikas Leos
--- NOTE | 2024-11-04 12:10 | CARE MANAGER ---
Addendum entered by Leesa Peterson RN 11/04/24 12:23: Ordered from [facility] to deliver at home per patient request. Original Note: Patient has difficulty with ambulation due to a mobility impairment that has potential to be corrected with a walker.
--- NOTE | 2024-11-05 10:12 | SW/DCPLANNER ---
Spoke with patient on the phone. Patient Stated that he is doing well. Patient stated that he is aware of his upcoming appointments. Patient stated that he was able to get his new medicine picked up from [facility]. Patient stated that he has no concerns or questions at this time. Wilton Galrand
--- NOTE | 2024-11-06 07:57 | PC.NURSE ---
this nurse received a call from Vangie in lab regarding pt's sputum micro resulting esbl. Dr. Leos called and states he will call in Levofloxacin to [facility] and to tell patient to stop taking his Clindamycin and Bactrim. Spoke with patient and updated him on on POC.
== END 2024-11-04 15:15 | disposition home health service (06) | DRG 193 ==
LOC: ER 01:11 → 2ND 03:52
PROVIDERS: Nurse Practitioner Acute Care; Admitting Provider Student in an Organized Health Care Education/Training Program; Emergency Provider Emergency Medicine; Visit Provider Student in an Organized Health Care Education/Training Program
DX: J18.9 Pneumonia, unspecified organism (principal); J96.21 Acute and chronic respiratory failure with hypoxia; J44.1 Chronic obstructive pulmonary disease with (acute) exacerbation; J44.0 Chronic obstructive pulmonary disease with (acute) lower respiratory infection; E78.5 Hyperlipidemia, unspecified; I11.0 Hypertensive heart disease with heart failure; G89.4 Chronic pain syndrome; I50.9 Heart failure, unspecified; Z80.1 Family history of malignant neoplasm of trachea, bronchus and lung; Z87.891 Personal history of nicotine dependence; Z88.6 Allergy status to analgesic agent; Z88.8 Allergy status to other drugs, medicaments and biological substances; Z79.899 Other long term (current) drug therapy
CPT/HCPCS: 36415; 71045; 71275; 80048; 80053; 82803; 83880; 84145; 84484; 85025; 85610; 87070; 87077; 87081; 87186; 87205; 87633; 93005; 94640; 94660; 94761; 97162; 97166; 97530; 99291; J0456; J0696; J0736; J2919; J7050; J7060; Q9967

== ENCOUNTER 2024-11-09 16:11 | Emergency (ER) | payer MEDICARE, MEDICAID, SELFPAY ==
[2024-11-09] VITALS (8 sets, daily range): BP systolic 106–128; BP diastolic 64–86; PULSE 62–89; RESP 18; TEMP 36.8; O2SAT 97–100; BMI 16.7
--- NOTE | 2024-11-09 16:23 | ECG_ITS ---
APPROVED REPORT Exam: Resting ECG HR:90 bpm ECG Measurements Heart Rate 90 AXES ND 135 P 87 QRSd 79 QRS 87 QT 354 T 85 QTc 401 Conclusion SINUS RHYTHM NORMAL ECG No STEMI Electronically signed by : MCKINLEY MATTHEWS, 11/10/2024 20:00:27
--- NOTE | 2024-11-09 16:45 | XR_ITS ---
PROCEDURE INFORMATION: Exam: XR Chest Exam date and time: 11/09/2024 4:58 PM Age: 64 years old Clinical indication: Hyperinflation. Chronic interstitial changes. SOA TECHNIQUE: Imaging protocol: Radiologic exam of the chest. Views: 1 view. COMPARISON: CT ANGIO CHEST PE PROTOCOL 11/03/2024 2:40 AM FINDINGS: Lungs: Persistent airspace opacity is again seen in the left and to a lesser extent the right lung base is well as in the right upper lobe. Underlying COPD and centrilobular emphysema. Pleural spaces: Unremarkable. No pleural effusion. No pneumothorax. Heart/Mediastinum: Unremarkable. No cardiomegaly. Bones/joints: Unremarkable. IMPRESSION: Persistent airspace opacity is again seen in the left and to a lesser extent the right lung base as well as in the right upper lobe. Underlying COPD and centrilobular emphysema.
--- NOTE | 2024-11-09 16:47 | HMH.EDCP ---
Discharge Plan Disposition Patient Disposition: Home, Self-Care Condition: Good Prescriptions Prescriptions: No Action gabapentin 600 mg tablet 600 mg PO TID oxycodone-acetaminophen 7.5-325 mg tablet 1 tab PO TID hydroxyzine pamoate [Vistaril] 25 mg capsule 25 mg PO TID PRN (Reason: itching) Qty: 60 0RF sacubitril-valsartan [Entresto] 24-26 mg tablet 1 tab PO BID Qty: 60 5RF ipratropium-albuterol 0.5 mg-3 mg(2.5 mg base)/3 mL solution for nebulization 3 ml IH QID PRN (Reason: shortness of breath or wheezing) Qty: 180 2RF duloxetine 60 mg capsule,delayed release(DR/EC) 60 mg PO BID 90 Days Qty: 180 3RF albuterol sulfate 90 mcg/actuation HFA aerosol inhaler 2 inh INHALATION QIDP PRN (Reason: Shortness Of Breath Or Wheezing) Patient Comments: INHALE TWO PUFFS BY MOUTH FOUR TIMES DAILY NEEDED FOR SHORTNESS OF BREATH OR wheezing atorvastatin 20 mg tablet 20 mg PO HS carvedilol 3.125 mg tablet 3.125 mg PO BID Trelegy Ellipta 100-62.5-25 mcg blister with device 1 ea INHALATION DAILY Patient Comments: inhale 1 PUFF BY MOUTH ONCE A DAY prednisone 20 mg tablet 20 mg PO DAILY 3 Days Qty: 3 0RF levofloxacin 750 mg tablet 750 mg PO DAILY 7 Days Qty: 7 0RF Referrals Follow up/Referrals: Aldo Simmons APRN [Primary Care Provider] - See instructions Activity Restrictions/Add. Instructions Additional Instructions/Restrictions: You were evaluated in the emergency department today. At this time, your workup is very reassuring and not changed from prior. You have a very small amount of blood in your urine, for which I recommend outpatient follow-up with urology. Please also follow-up very closely with your primary care provider. They should be responsible for refilling any pain medications that you need. Return to the emergency department for new or worsening symptoms. Clinical Impressions Clinical Impression: Chronic pain, Chronic shortness of breath, Urinary urgency, Hematuria Instructions Patient Instructions: DI for Chronic Obstructive Pulmonary Disease, DI for Chronic Pain -- Adult, DI for Shortness of Breath Print Language Print Language: Serbian Discharge ED Provider: Sophia Awan HPI General Chief Complaint: Shortness of Breath/Dyspnea Stated Complaint: diff breathing, urgent urination Time Seen by Provider: 11/09/24 16:33 Mode of Arrival: Wheelchair Source of Information: Patient Description of Symptoms (Recalled from ER Triage Doc. by RN): Pt reports he is having increased urinary frequency when he has episodes of SOA. Pt reports he took his last dose of pain medication this morning and is out until saturday. History of Present Illness HPI narrative: This patient is a 64-year-old male with a history of COPD, chronic shortness of breath, nonischemic cardiomyopathy, hypertension hyperlipidemia, chronic neck and back pain, chronic opioid dependence presented to the emergency department for evaluation with concern for shortness of breath, his chronic pain, and urinary urgency. He states that if he does not go pee right away he will nearly pee on himself. He notes is been going on for a long time but seems to be a little bit worse today. He notes that he took his last dose of pain medication this morning and is out of it until Saturday, stating that his doctor knows that he takes extra sometimes as needed and is okay with that. He is requesting pain medication at this time. Of note, he was just discharged from the hospital 11/04/2024 after be admitted for respiratory failure in the setting of COPD Bashan and pneumonia. He was discharged on clindamycin and Bactrim, which she just finished. He also just finished a course of steroids. Related Data Home Medications ?Medication ?Instructions ?Recorded ?Confirmed albuterol sulfate 90 mcg/actuation 2 inh inhalation QIDP PRN 11/05/23 11/03/24 aerosol inhaler Shortness Of Breath Or Wheezing gabapentin 600 mg tablet 600 mg PO TID 10/20/24 11/03/24 oxycodone-acetaminophen 7.5 mg-325 1 tab PO TID 10/20/24 11/03/24 mg tablet atorvastatin 20 mg tablet 20 mg PO HS 11/03/24 11/03/24 carvedilol 3.125 mg tablet 3.125 mg PO BID 11/03/24 11/03/24 fluticasone fur. 100 mcg-umeclid 1 ea inhalation DAILY 11/03/24 11/03/24 62.5 mcg-vilant 25 mcg inhalat.powder (Trelegy Ellipta) Previous Rx's ?Medication ?Instructions ?Recorded sacubitril 24 mg-valsartan 26 mg 1 tab PO BID #60 tabs 06/15/24 tablet (Entresto) ipratropium 0.5 mg-albuterol 3 mg 3 ml inhalation QID PRN shortness 08/10/24 (2.5 mg base)/3 mL nebulization of breath or wheezing #180 mL soln hydroxyzine pamoate 25 mg capsule 25 mg PO TID PRN itching #60 caps 10/20/24 (Vistaril) duloxetine 60 mg capsule,delayed 60 mg PO BID 90 days #180 caps 10/23/24 release prednisone 20 mg tablet 20 mg PO DAILY 3 days #3 tabs 11/04/24 levofloxacin 750 mg tablet 750 mg PO DAILY 7 days #7 tabs 11/06/24 Allergies Allergy/AdvReac Type Severity Reaction Status Date / Time methocarbamol (From ROBAXIN) Allergy Unknown Shakiness Verified 10/30/24 15:17 pregabalin (From LYRICA) Allergy Unknown Shakiness Verified 10/30/24 15:17 methadone Allergy Difficulty Verified 10/30/24 15:17 Breathing ibuprofen AdvReac Cramping Verified 10/30/24 15:17 of the Muscles PFSH PFS Disclaimer: The information contained in this section may have been updated after the patient was seen, as this information can be updated by other users. Medical History Esophageal thickening Anxiety Solid nodule of lung greater than 8 mm in diameter COPD mixed type Nodule of left lung SIRS (systemic inflammatory response syndrome) Acute and chronic respiratory failure with hypoxia Postherpetic trigeminal neuralgia Encounter for screening for malignant neoplasm of lung in current smoker with 30 pack year history or greater Abnormal screening computed tomography (CT) of chest Nonischemic cardiomyopathy Diastolic dysfunction Elevated left ventricular end-diastolic pressure (LVEDP) Non-STEMI (non-ST elevated myocardial infarction) Emphysema/COPD Pneumonia due to gram-negative bacteria Low body mass index (BMI) COPD (chronic obstructive pulmonary disease) with acute bronchitis Upper respiratory infection Rhinovirus infection HLD (hyperlipidemia) Tobacco dependence syndrome Chest pain Cardiomyopathy Preoperative clearance Poisoning by opiate or related narcotic Atypical pneumonia Postherpetic neuralgia Left against medical advice HTN (hypertension) Elevated C-reactive protein CAP (community acquired pneumonia) COPD (chronic obstructive pulmonary disease) Pain, eye, right Herpes zoster ophthalmicus, right eye Eye pain Shingles Neuropathy Surgical History H/O cervical spine surgery H/O cardiac catheterization Family History Mother Lung cancer Family history of acute congestive heart failure Father Lung cancer Family history of acute congestive heart failure Social History Smoking Status: Former smoker tobacco type: cigarettes packs per day: 1 smoking status stop date: december 2021 second hand exposure: Yes alcohol intake: former substance use type: denies use current occupational status: disabled Travel in the last 8 weeks?: None household members: children housing: house marital status: current occupational exposures/hazards: No pets and animals: No caffeine: Yes Have you lived/traveled outside [place] in past 30 days?: No Contact w/someone who lives/traveled outside US past 30 days?: No Exposure to someone with infectious disease in past 14 days?: No Do you have a fever (greater than 100.4 F or 38 C)?: No Have you tested positive for COVID-19?: No Exposed to someone with COVID-19 in past 14 days?: No Do you have a sore throat?: No Do you have a cough?: No Do you have any weakness?: No Do you have any diarrhea?: No Are you experiencing any unusual bleeding?: No Do you have any muscle aches/pain?: No Do you have any abdominal pain?: No Are you experiencing loss of taste or smell?: No Other Medical History Have you received the Flu Vaccine for this season: No Have you received the Pneumonia Vaccine: No ROS Obtained: Yes All systems reviewed & no additional complaints except as documented Physical Exam General General appearance: alert and in no apparent distress Head Head exam: atraumatic and normocephalic Eye Eye exam: Present normal appearance, PERRL and EOMI ENT ENT exam: Present normal exam, normal oropharynx, mucous membranes moist and normal external ear exam Neck Neck exam: Present normal inspection, full ROM and trachea midline; Absent tenderness Chest Chest inspection: Present normal inspection and symmetric chest wall rise; Absent tenderness Respiratory Respiratory exam: Present normal lung sounds bilaterally; Absent respiratory distress, wheezes, stridor or accessory muscle use Cardiovascular Cardiovascular exam: Present regular rate and normal rhythm Abdominal Exam Abdominal exam: Present soft; Absent distention, tenderness or guarding Extremities Exam Extremities exam: Present normal inspection, full ROM and normal capillary refill; Absent tenderness or edema Back Exam Back exam: Present normal inspection and full ROM; Absent tenderness Neurological Exam Neurological exam: Present alert, oriented X3, CN II-XII intact and normal gait; Absent motor sensory deficit Psychiatric Psychiatric exam: Present normal affect and normal mood Skin Skin exam: Present warm and dry HEART Score HEART Score HEART Score assessment performed?: Yes History (anamnesis): Slightly suspicious ECG: Normal Age: >65 years Risk factors: Atherosclerosis history Troponin: </= normal limit HEART Score: 4 Critical Care Critical Care Time Critical Care Time: No Medical Decision Making Marck Inquiry Pt receiving controlled substance: No Vital Signs Vital Signs: 11/09/24 16:19 11/09/24 16:24 11/09/24 16:30 Temperature 98.3 F Temperature Source Oral Pulse Rate 83 Pulse Rate [Right Brachial] 87 Respiratory Rate 18 Blood Pressure 125/78 125/86 Blood Pressure [Right Arm] 125/86 Blood Pressure Mean 90 Blood Pressure Mean [Right Arm] 99 02 Sat by Pulse Oximetry 98 98 Oxygen Delivery Method Nasal Cannula Oxygen Flow Rate (LPM) 2 11/09/24 16:42 11/09/24 17:00 11/09/24 17:30 Temperature Temperature Source Pulse Rate 87 87 62 Pulse Rate [Right Brachial] Respiratory Rate Blood Pressure 122/69 123/64 Blood Pressure [Right Arm] Blood Pressure Mean Blood Pressure Mean [Right Arm] 02 Sat by Pulse Oximetry 98 98 97 Oxygen Delivery Method Room Air Oxygen Flow Rate (LPM) Lab Data Labs: Lab Results 11/09/24 16:25: WBC 5.4, RBC 4.23 L, Hgb 11.5 L, Hct 36.1 L, MCV 85.3, MCH 27.2, MCHC 31.9, RDW 15.9, Plt Count 512 H, MPV 8.8, Neut % (Auto) 46.1, Lymph % (Auto) 35.6, [place] % (Auto) 11.4 H, Eos % (Auto) 5.8, Baso % (Auto) 0.7, Neut # (Auto) 2.5, Lymph # (Auto) 1.9, [place] # (Auto) 0.6, Eos # (Auto) 0.3, Baso # (Auto) 0.0, Sodium 136, Potassium 4.7, Chloride 98, Carbon Dioxide 35 H, Anion Gap 7.7, BUN 16, Creatinine 0.70, Estimated Creat Clear 61, Estimated GFR 113, Est GFR ( Amer) 137, Glucose 119 H, Calcium 9.1, Total Bilirubin 0.2, AST 27, ALT 16, Alkaline Phosphatase 77, Troponin I < 0.01, Total Protein 7.0, Albumin 3.9, Globulin 3.1, Albumin/Globulin Ratio 1.3 11/09/24 17:15: Urine Color Yellow, Urine Appearance Clear, Urine pH 7.0, Ur Specific [place] 1.010, Urine Protein Negative, Urine Glucose (UA) Negative, Urine Ketones Negative, Urine Blood Trace-l, Urine Nitrate Negative, Urine Bilirubin Negative, Urine Urobilinogen 0.2, Ur Leukocyte Esterase Negative, Urine RBC 5-10, Urine WBC Occasional, Ur Squamous Epith Cells None, Urine Bacteria None 11/09/24 17:16: VBG pH 7.40, VBG pCO2 50.9, VBG pO2 55.2 H, VBG HCO3 30.5 H, VBG Total CO2 32.0 H, VBG O2 Saturation 88.6 H, VBG Base Excess 5.6 H, VBG Lactic Acid 1.0 11/09/24 16:25 11/09/24 16:25 Response Orders (Tests/Meds): ED MEDICATIONS Generic Name Dose Route Start Last Admin Trade Name Freq PRN Reason Stop Dose Admin Albuterol/Ipratropium 3 ml 11/09/24 18:12 Ipratropium/Albuterol 3 Ml Neb IH 11/09/24 18:13 ONCE ONE Discontinued Medications Generic Name Dose Route Start Last Admin Trade Name Freq PRN Reason Stop Dose Admin Oxycodone/Acetaminophen 1 each 11/09/24 16:45 11/09/24 16:55 Oxycodone 7.5mg W/Apap 325mg Tablet PO 11/09/24 16:46 1 each ONCE ONE Administration ORDERS Category Date Time Status CXR --portable [XR chest portable] Stat Exams 11/09/24 16:45 Completed CBC w/Auto Diff [Complete Blood Count Auto Diff] Stat Lab 11/09/24 16:25 Results CMP [Comprehensive Metabolic Panel] Stat Lab 11/09/24 16:25 Completed Trop I [Troponin I] Stat Lab 11/09/24 16:25 Completed Troponin I Q3H Lab 11/09/24 19:45 Ordered Troponin I Q3H Lab 11/09/24 22:45 Ordered UA [Urinalysis and Microscopic] Stat Lab 11/09/24 17:15 Completed VBG [Venous Blood Gas] Stat RT 11/09/24 17:16 Completed ECG Data Tracing #1: Attestation: I reviewed this ECG and interpreted as documented below: ECG Narrative: Normal sinus rhythm with a ventricular rate of 90 bpm. Normal intervals. no acute ST changes concerning for ischemia. ECG initial impression date: 11/09/24 ECG initial impression time: 16:26 MDM Narrative Medical Decision Narrative: In summary, this patient is a 64 year old male presenting to the Emergency Department for evaluation of chronic neck and back pain because he is out of his pain medication, chronic shortness of breath, urinary urgency. Differential diagnoses considered include but are not limited to COPD exacerbation, pneumonia, UTI, BPH. Ruling out the most morbid conditions drove assessment. It should be noted patient's history includes chronic pain, chronic respiratory failure on home oxygen, COPD, hypertension, hyperlipidemia, cardiomyopathy which may or may not be at goal therapy. This complicates all aspects of care by increasing patient's risk for morbidity. I reviewed patient's past medical records and noted recent admission for respiratory failure with discharge on antibiotics for pneumonia as detailed in HPI. On exam, the patient actually looks well. His vitals are completely normal on his home oxygen. He is not tachycardic or hypoxic. He has no increased work of breathing and breath sounds were clear on initial assessment. Workup included CBC, CMP, troponin, VBG, urinalysis, chest x-ray, EKG. EKG obtained is reassuring.. I independently interpreted x-ray prior to the radiologist read and noted to be changes from prior chest x-ray. Please see their read for final interpretation. Labs were obtained that demonstrated improvement in white count from recent admission without any other significant changes, nothing actionable at this time.. On reassessment, patient had some wheezing so administered DuoNeb with good improvement. I do not feel that he technically has a new COPD exacerbation and I am not concerned for that he needs new antibiotics or steroids at this time based on how well he looks and reassuring workup and exam. I did treat him with a one-time dose of his home oral pain medication since he ran out, but for the rest he will have to follow-up closely with his primary care provider. 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 He was discharged after all questions were answered.
[2024-11-09] MEDS: OXYCODONE 7.5MG W/APAP 325MG TABLET 1 EACH PO (16:55)
[2024-11-09 16:58] LABS: Basophils % 0.7 % (0.1-2.0); Eosinophils # 0.3 Kmm3 (0.0-0.4); Eosinophils % 5.8 % (0.1-12.0); Hematocrit 36.1 % (42.0-52.0); Hemoglobin 11.5 g/dL (14.1-18.0); Immature Granulocytes # 0.02 10^3uL; Immature Granulocytes % 0.4 %; Lymphocytes # 1.9 K/mm3 (0.7-4.5); Lymphocytes % 35.6 % (10-50); Mean Corpuscular HGB Conc 31.9 g/dL (31.8-35.4); Mean Corpuscular Hemoglobin 27.2 pg (27.0-31.2); Mean Corpuscular Volume 85.3 fl (80-94); Mean Platelet Volume 8.8 fl (7.4-10.4); Monocytes # 0.6 K/mm3 (0.1-1.0); Monocytes % 11.4 % (1.7-9.3); Neutrophils # 2.5 K/mm3 (1.8-7.8); Neutrophils % 46.1 % (37.0-80.0); Nucleated Red Blood Cells # 0 10^3/uL; Nucleated Red Blood Cells % 0 %; Platelet Count 512 K/mm3 (142-424); Red Blood Count 4.23 M/mm3 (4.60-6.20); Red Cell Distribution Width 15.9 % (11.5-17.5); Red Cell Distribution Width-SD 49.9 fL; White Blood Count 5.4 K/mm3 (4.8-10.8)
[2024-11-09 16:59] LABS: Chloride 98 mmol/L (98-107)
[2024-11-09 17:00] LABS: Albumin Level 3.9 g/dl (3.5-5.0); Potassium 4.7 mmoL/L (3.5-5.1); Sodium 136 mmol/L (136-145)
[2024-11-09 17:02] LABS: Blood Urea Nitrogen 16 mg/dl (9-20); Creatinine Clearance Estimated 61 mL/min (50-200); Estimated Glomerular Filt Rate 113 ml/min (>60); GFR (African American) 137 ML/MIN (>60)
[2024-11-09 17:03] LABS: Alanine Aminotransferase 16 U/L (12-78); Albumin/Globulin Ratio 1.3 (1.1-1.8); Alkaline Phosphatase 77 U/L (38-126); Anion Gap 7.7 mEq/L (5-15); Aspartate Amino Transferase 27 U/L (17-59); Bilirubin,Total 0.2 mg/dl (0.2-1.3); Calcium 9.1 mg/dl (8.4-10.2); Carbon Dioxide 35 mmol/L (22.0-30.0); Globulin 3.1 g/dL (1.3-3.2); Glucose 119 mg/dl (74-100)
[2024-11-09 17:15] LABS: VBG Base Excess 5.6 mmol/L (-2.4-2.3); VBG HCO3 30.5 mmol/L (23-30); VBG Oxygen Saturation 88.6 % (50-70); VBG PCO2 50.9 mmol/L (35-51); VBG PO2 55.2 mmol/L (28-40)
[2024-11-09 17:18] LABS: Microscopic, Urine URINE MICROSCOPIC (MICROSCOPIC)
[2024-11-09 17:22] LABS: Appearance,Urine CLEAR (Clear); Bilirubin,Urine Negative (Negative); Blood, Urine TRACE-L (Negative); Color,Urine YELLOW (Yellow); Glucose,Urine (UA) Negative (Negative); Ketones,Urine Negative (Negative); Leukocyte Esterase,Urine Negative (Negative); Nitrate,Urine Negative (Negative); Protein,Urine Negative (Negative); Urobilinogen,Urine 0.2 EU/dl (0.2)
[2024-11-09 17:26] LABS: Troponin I < 0.01 ng/ml (0.00-0.034)
[2024-11-09 17:28] LABS: MANUAL DIFFERENTIAL MANUAL DIFFERENTIAL (MANUAL DIFF)
[2024-11-09 17:53] LABS: WBC,Urine Occasional #/hpf (0-3)
[2024-11-09] MEDS: IPRATROPIUM/ALBUTEROL 3 ML NEB IH (18:17)
--- NOTE | 2024-11-09 18:42 | PC.NURSE ---
attempting to DC patient when he wishes to speak with Dr Awan. Dr Awan at the bedside at this time.
[2024-11-09 18:59] LABS: Total Cells Counted 100
[2024-11-09 19:01] LABS: Atypical Lymphocytes % 5; Eosinophils % 6 % (0-3); Lymphocytes % 40 % (10-50); Monocytes % 6 % (2-9); Neutrophils % 43 % (42-76); Platelet Estimate Slight Increase
[2024-11-09 19:02] LABS: Anisocytosis 1+; Hypochromasia 1+
== END 2024-11-09 18:51 | disposition home or self-care (01) ==
PROVIDERS: Emergency Provider Emergency Medicine; PCP Nurse Practitioner Family
DX: R06.02 Shortness of breath (principal); R39.15 Urgency of urination; R31.9 Hematuria, unspecified; G89.29 Other chronic pain
CPT/HCPCS: 71045; 80053; 81001; 82803; 84484; 85007; 85025; 85027; 93005; 99284

== ENCOUNTER 2024-11-25 10:50 | Outpatient (CLI) | payer MEDICARE, MEDICAID, SELFPAY ==
--- OUTSIDE RECORDS SUMMARY | 2024-11-25 10:55 | XMS_ITS | Clinical Summary ---
Author Organization [employer] Address [address] [place] [address] Care Team Providers Care Gate Tender Name Role Phone Vikas Rizo DO Primary Care Provider [phone] Allergies Active Allergy Reactions Criticality Noted Date Comments Ibuprofen 10/31/2023 Methocarbamol 10/31/2023 Pregabalin 10/31/2023 Medications carvediloL (COREG) 3.125 MG tablet Take 1 tablet (3.125 mg total) by mouth 2 (two) times daily. 02/21/2024 Active gabapentin (NEURONTIN) 800 MG tablet Take 1 tablet (800 mg total) by mouth 3 (three) times daily. Max Daily Amount: 2,400 mg 04/13/2024 Active oxyCODONE (ROXICODONE) 10 MG tablet Take by mouth. 04/02/2024 Active Entresto 24-26 mg tablet Take 1 tablet by mouth 2 (two) times daily. 02/21/2024 Active Stiolto Respimat 2.5-2.5 mcg/actuation mist Take 2 puffs by mouth daily. 02/24/2024 Active lamoTRIgine (LaMICtal) 25 MG tabletIndicatio ns:Post herpetic neuralgia Take 2 tablets (50 mg total) by mouth daily. 360 tablet 1 04/16/2024 Active Active Problems Problem Noted Date Diagnosed Date Post herpetic neuralgia 04/16/2024 Idiopathic peripheral neuropathy 04/16/2024 Social History Tobacco Use Types Packs/Day Years Used Date Smoking Tobacco: Former Cigarettes Tobacco Cessation:Counseling Given: Not Answered Interpersonal Safety Answer Date Record ed Family or friends hurt you Not on file 11/01 Family or friends insult you Not on file Family or friends threaten you Not on file 0 11/02/2023 Family or friends scream or curse at you Not on file 11/02/2023 Housing Stability Answer Date Recorded Living situation today Not on file Living situation problems Not on file 2023 Food Insecurity Answer Date Recorded Food run out past 12 months Not on file 06/17 Food did not last past 12 months Not on file 07/04/2023 Employment Answer Date Recorded Help finding and keeping a job Not on file 0 07/04/2023 Family and Community Support Answer Efraín e Recorded Help with Day to Day Activities Not on file 11/02/2023 Feeling Lonely or Isolated Not on file 11/01 Educational Attainment Answer Date Ismael rded Speak language other than Irish at home Not on file 11/02/2023 Want help with school or training Not on file 11/02/2023 Depression Answer Date Recorded PHQ-2 Risk Not on file 11/02/2023 Disabilities Answer Date Recorded Difficulty concentrating Not on file 024 Difficulty doing errands alone Not on file 0 11/02/2023 Substance Use Answer Date Recorded Used prescription meds for non-medical reasons N ot on file 11/02/2023 Used illegal drugs past 12 months Not on file 11/02/2023 Sex and Gender Information Value Date Recorded Sex Assigned at Not on file Legal Sex Male 12:47 PM CDT Gender Identity Not on file Sexual Orientation Not on file Last Filed Vital Signs Vital Sign Reading Time Taken Comments Blood Pressure 110/70 04/16/2024 2:21 PM EDT Pulse - - Temperature - - Respiratory Rate - - Oxygen Saturation - - Inhaled Oxygen Concentration - - Weight 55.8 kg (123 lb) 04/16/2024 2:13 PM EDT Height - - Body Mass Index - - Plan of Treatment Health Maintenance Due Date Last Done Comments CT Colonography 1958 Colonoscopy 1958 Colorectal Cancer Screening 1958 FOBT/FIT 1958 Fit-DNA (Cologuard) 1958 Sigmoidoscopy 1958 Depression Screening (12+) 1970 Tobacco Cessation Counseling and Screening (12+) 1970 Hepatitis C Screening 1976 DTAP/TDAP/TD VACCINES (1 - Tdap) 1977 Pneumococcal 50+ years (2 of 2 - PCV) 07/03/2020 Abdominal Aortic Aneurysm (AAA) Screen 2023 COVID-19 VACCINE (3 - season) 02/16/202404/2021, 01/12/2021 Falls Risk Screening 06/17/2024 Medicare Initial AWV [id number] 06/18/2024 Influenza Vaccine (Season Ended) 2025 Respiratory Syncytial Virus (RSV) Adult or (1 - 1-dose 75+ series) 2033 Shingles Vaccine (Zoster) Completed 01/17/2022, 04/2021 Insurance [employer] PPO MAP Care Teams Gate Tender Relationship Specialty Start Date End Date Vikas Rizo DO PCP - General Internal Medicine 04/16/24
--- OUTSIDE RECORDS SUMMARY | 2024-11-25 10:55 | XMS_ITS | Referral Summary ---
Author Organization [employer] [facility] [employer] Address [address] [place] [address] Care Team Providers Care Replanter Name Role Phone Vikas Rizo DO Primary Care Provider [phone] Allergies Active Allergy Reactions Criticality Noted Date [...] Date Ismael rded Speak language other than Jamaican at home Not on file 11/02/2023 Want [...] Mass Index - - Plan of Treatment Not on file Insurance [employer] MEDIBLUE ACCESS PPO MAP Care Teams Replanter Relationship Specialty Start Date End Date Vikas Rizo DO PCP - General Internal Medicine 04/16/24
--- OUTSIDE RECORDS SUMMARY | 2024-11-25 10:55 | XMS_ITS | Clinical Summary ---
Author Organization Healthcare Address [address] [id number] Care Team Providers Care Corporate Webmaster Name Role Phone Unavailable Primary Care Provider Unavailabl e Medications White Petrolatum-Mine ral Oil (artificial tears) ophthalmic ointment APPLY GENEROUS AMOUNT TO EYES AND SKIN AROUND EYES FREQUENTLY 3.5 g 1 Active Immunizations Immunization Administration Dates Next Due Influenza, injectable, quadrivalent, preservativ e free 05/04/2019 Family History Medical History Relation Name Comments Diabetes type I Daughter Heart failure Father Heart failure Mother Relation Name Status Comments Daughter Father Mother Social History Tobacco Use Types Packs/Day Years Used Date Smoking Tobacco: Every Day Alcohol Use Standard Drinks/Week Comments No 0 (1 standard drink = 0.6 oz pur e alcohol) Sex and Gender Information Value Date Recorded Sex Assigned at Not on file Legal Sex Male 8:38 PM EDT Gender Identity Not on file Sexual Orientation Not on file Last Filed Vital Signs Vital Sign Reading Time Taken Comments Blood Pressure 118/76 02/12/2020 9:01 AM EDT Pulse 68 02/12/2020 9:01 AM EDT Temperature 36.6 C (97.8 F) 02/12/2020 9:01 AM EDT Respiratory Rate 16 05/19/2019 12:44 PM EST Oxygen Saturation - - Inhaled Oxygen Concentration - - Weight 55.6 kg (122 lb 8.2 oz) 02/12/2020 9:01 A M EDT Height 188 cm (6' 2 ) 02/12/2020 9:01 AM EDT Body Mass Index 15.73 02/12/2020 9:01 AM EDT Plan of Treatment Health Maintenance Due Date Last Done Comments [facility]-Depression Screening 1958 [facility]-Infant/Child/Adol SDOH Screenings 1960 [facility]- SDOH Screenings 1976 [facility]-Adult SDOH Screenings 1976 [facility]-DTaP,Tdap,and Td Vaccine s (1 - Tdap) 1977 CT Colonography 2003 Colonoscopy 2003 FIT-DNA 2003 FIT 2003 FOBT 2003 Sigmoidoscopy 2003 [facility]-Colorectal Cancer Screening 2003 [facility]Y-Pneumococcal Vaccine: 50 + Years (1 of 1 - PCV) 2008 UKY-Zoster Vaccines (1 of 2) 2008 [id number]-75 Vaccine (1 - 20 24-25 season) 2024 UKY-Influenza Vaccine (Seaso n Ended) 2025 05/04/2019 UKY-RSV Vaccine: 60+ Years o r (1 - 1-dose 75+ series) 2033 HPV Vaccines Aged Out No longer eligi ble based on patient's age to complete this topic UKY-HIB Vaccines Aged Out No longer e ligible based on patient's age to complete this topic UKY-Hepatitis A Vaccines Aged Out No longer eligible based on patient's age to complete this topic UKY-IPV Vaccines Aged Out No longer e ligible based on patient's age to complete this topic UKY-Rotavirus Vaccines Aged Out No lo nger eligible based on patient's age to complete this topic Insurance
--- NOTE | 2024-11-25 10:56 | XR_ITS ---
FINAL REPORT TECHNIQUE: Chest PA & Lateral CLINICAL HISTORY: sob COMPARISON: 11/09/2024 FINDINGS: 2 views of the chest were performed. The lungs are hyperinflated. The heart size is normal. The mediastinum is within normal limits. There is bibasilar scarring, greater on the left than on the right. No acute cardiopulmonary process is identified. No significant changes noted since the prior exam of 11/09/2024. There are no pleural effusions. There is no pneumothorax. The bony thorax appears intact. There is evidence of a prior cervical fusion. IMPRESSION: Hyperinflated lungs, with no acute cardiopulmonary process, and no significant change since the prior exam of 11/09/2024. Reviewed, Interpreted and Dictated by Caleb Mendiola MD Transcribed by Glenda Bojorquez Authenticated and [facility]
== END 2024-11-25 23:59 | disposition home or self-care (01) ==
PROVIDERS: PCP Nurse Practitioner Family; Visit Provider Internal Medicine Pulmonary Disease
DX: R91.8 Other nonspecific abnormal finding of lung field (principal); R06.02 Shortness of breath
CPT/HCPCS: 71046; 87070; 87205

== ENCOUNTER 2024-12-03 14:00 | Outpatient (CLI) | payer MEDICARE, MEDICAID, SELFPAY ==
--- NOTE | 2024-12-03 14:05 | XR_ITS ---
FINAL REPORT TECHNIQUE: Chest PA & Lateral CLINICAL HISTORY: PNM COMPARISON: 11/25/2024 FINDINGS: 2 views of the chest were performed. The heart size is normal. The mediastinum is within normal limits. The lungs are hyperinflated. Scarring is noted at the lung bases. There are no pleural effusions. There is no pneumothorax. The bony thorax appears intact. Cervical fusion hardware is noted in the lower cervical spine. IMPRESSION: Hyperinflated lungs with bibasilar pulmonary scarring/fibrosis, stable and presumed chronic. Reviewed, Interpreted and Dictated by Caleb Mendiola MD Transcribed by Eden Nicolas Authenticated and [facility]
--- OUTSIDE RECORDS SUMMARY | 2024-12-03 14:19 | XMS_ITS | Clinical Summary ---
Author Organization [employer] Address [address] [place] [address] Care Team Providers Care Flow Manager Name Role Phone Vikas Rizo DO Primary Care Provider [phone] Allergies Active Allergy Reactions Criticality Noted Date [...] Date Ismael rded Speak language other than Lao at home Not on file 11/02/2023 Want [...] Shingles Vaccine (Zoster) Completed 01/17/2022, 04/2021 Insurance Le[employer] PPO MAP Care Teams Flow Manager Relationship Specialty Start Date End Date Vikas Rizo DO PCP - General Internal Medicine 04/16/24
--- OUTSIDE RECORDS SUMMARY | 2024-12-03 14:19 | XMS_ITS | Referral Summary ---
Author Organization [employer] [facility] [employer] Address [address] [place] [address] Care Team Providers Care Buttermaker Continuous Churn Name Role Phone Vikas Rizo DO Primary Care Provider +1 [phone] Allergies Active Allergy Reactions Criticality Noted Date [...] Date Ismael rded Speak language other than Somali at home Not on file 11/02/2023 Want [...] Plan of Treatment Not on file Insurance [employer] PPO MAP Care Teams Buttermaker Continuous Churn Relationship Specialty Start Date End Date Vikas Rizo DO PCP - General Internal Medicine 04/16/24
--- OUTSIDE RECORDS SUMMARY | 2024-12-03 14:19 | XMS_ITS | Clinical Summary ---
Author Organization Healthcare Address [address] [id number] Care Team Providers Care Marketing Teacher Name Role Phone Unavailable Primary Care Provider [...] 2008 [facility]Y-Zoster Vaccines (1 of 2) 2008 [id number] Vaccine (1 - 20 24-25 season) 2024 [...]
--- OUTSIDE RECORDS SUMMARY | 2024-12-03 15:18 | XMS_ITS | CCD ---
Author Organization Unknown Care Team Providers Care Religion Professor Name Role Phone Unavailable Primary Care Provider Unavailabl e Unavailable Chronic Care Management Unavaila ble Summary Purpose DataExchange Insurance Providers Payer name Policy type / Coverage type Covered constitution party ID Effective Begin Date Effective End Date [facility] [id number] Unknown Unknown Family History Family History data not found Medication Administered No Medication Administered data Reason For Visit No Reason For Visit data Medical Equipment No Medical Equipment data Advance Directives No Advance Directive data
--- OUTSIDE RECORDS SUMMARY | 2024-12-03 15:18 | XMS_ITS | CCD ---
Author Organization Unknown Care Team Providers Care Gear Machinist Name Role Phone Unavailable Primary Care Provider Unavailabl e Unavailable Chronic Care Management Unavaila ble Summary Purpose DataExchange Insurance Providers Payer name Policy type / Coverage type Covered constitution party ID Effective Begin Date Effective End Date [facility] [id number] Unknown Unknown Family History Family History data not found Medication Administered No Medication Administered data Reason For Visit No Reason For Visit data Medical Equipment No Medical Equipment data Advance Directives No Advance Directive data
== END 2024-12-03 23:59 | disposition home or self-care (01) ==
LOC: LAB 14:02
PROVIDERS: PCP Nurse Practitioner Family; Visit Provider Internal Medicine Pulmonary Disease
DX: J84.10 Pulmonary fibrosis, unspecified (principal); R91.8 Other nonspecific abnormal finding of lung field; J18.9 Pneumonia, unspecified organism; Z98.1 Arthrodesis status
CPT/HCPCS: 71046; 87070; 87077; 87205

== ENCOUNTER 2024-12-12 14:46 | Emergency (ER) | payer MEDICARE, MEDICAID, SELFPAY ==
[2024-12-12 14:52] VITALS: BP 105/70; PULSE 95; RESP 20; TEMP 36.6; O2SAT 94; BMI 16.0
[2024-12-12 15:14] LABS: MANUAL DIFFERENTIAL MANUAL DIFFERENTIAL (MANUAL DIFF)
[2024-12-12 15:15] LABS: Basophils # 0.1 K/mm3 (0-0.2); Basophils % 1.5 % (0.1-2.0); Eosinophils # 0.3 Kmm3 (0.0-0.4); Eosinophils % 4.6 % (0.1-12.0); Hematocrit 32.8 % (42.0-52.0); Hemoglobin 10.3 g/dL (14.1-18.0); Lymphocytes # 1.5 K/mm3 (0.7-4.5); Lymphocytes % 25.1 % (10-50); Mean Corpuscular HGB Conc 31.4 g/dL (31.8-35.4); Mean Corpuscular Hemoglobin 27.1 pg (27.0-31.2); Mean Corpuscular Volume 86.3 fl (80-94); Mean Platelet Volume 8.9 fl (7.4-10.4); Monocytes # 0.6 K/mm3 (0.1-1.0); Monocytes % 10.3 % (1.7-9.3); Neutrophils # 3.6 K/mm3 (1.8-7.8); Neutrophils % 58.3 % (37.0-80.0); Platelet Count 421 K/mm3 (142-424); Red Cell Distribution Width 17.3 % (11.5-17.5); White Blood Count 6.1 K/mm3 (4.8-10.8)
[2024-12-12 15:29] LABS: Alanine Aminotransferase 9 U/L (12-78); Albumin Level 3.6 g/dl (3.5-5.0); Albumin/Globulin Ratio 1.1 (1.1-1.8); Alkaline Phosphatase 79 U/L (38-126); Aspartate Amino Transferase 32 U/L (17-59); Bilirubin,Total 0.5 mg/dl (0.2-1.3); Blood Urea Nitrogen 20 mg/dl (9-20); Calcium 9.3 mg/dl (8.4-10.2); Carbon Dioxide 31 mmol/L (22.0-30.0); Chloride 97 mmol/L (98-107); Creatinine Clearance Estimated 58 mL/min (50-200); Estimated Glomerular Filt Rate 135 ml/min (>60); GFR (African American) 163 ML/MIN (>60); Globulin 3.3 g/dL (1.3-3.2); Glucose 99 mg/dl (74-100); Sodium 135 mmol/L (136-145); Total Protein,Serum 6.9 g/dl (6.3-8.2)
--- OUTSIDE RECORDS SUMMARY | 2024-12-12 15:30 | XMS_ITS | Referral Summary ---
Author Organization [employer] [facility] [employer] Address [address] [place] [address] Care Team Providers Care Gathering Worker Name Role Phone Vikas Rizo DO Primary Care Provider +1 [phone] Allergies Active Allergy Reactions Criticality Noted Date [...] Former Cigarettes Tobacco Cessation:Counseling Given: Not Answered Food Insecurity Answer Date Recorded Food run [...] Date Ismael rded Speak language other than Bhutanese at home Not on file 11/02/2023 Want help with school or training Not on file 11/02/2023 Substance Use Answer Date Recorded Used [...] Plan of Treatment Not on file Insurance PPO MAP Care Teams Gathering Worker Relationship Specialty Start Date End Date Vikas Rizo DO PCP - General Internal Medicine 04/16/24
--- OUTSIDE RECORDS SUMMARY | 2024-12-12 15:30 | XMS_ITS | Clinical Summary ---
Author Organization [employer] [facility] [employer] Address [address] [place] [address] Care Team Providers Care Compliance Associate Name Role Phone Vikas Rizo DO Primary Care Provider +1 [phone] Allergies Active Allergy Reactions Criticality Noted Date [...] Date Ismael rded Speak language other than Norwegian at home Not on file 11/02/2023 Want [...] Shingles Vaccine (Zoster) Completed 01/17/2022, 04/2021 Insurance [employer] MAP Care Teams Compliance Associate Relationship Specialty Start Date End Date Vikas Rizo DO PCP - General Internal Medicine 04/16/24
--- OUTSIDE RECORDS SUMMARY | 2024-12-12 15:30 | XMS_ITS | Clinical Summary ---
Author Organization Healthcare Address [address] [id number] Care Team Providers Care Electronic Tech Name Role Phone Unavailable Primary Care Provider [...] 2008 [facility]Y-Zoster Vaccines (1 of 2) 2008 [id number] Vaccine (1 - 20 24-25 season) 2024 [...]
[2024-12-12 15:37] LABS: NT Pro Brain Natriuretic Pep. 627 pg/mL (0-125)
--- NOTE | 2024-12-12 16:08 | XR_ITS ---
PROCEDURE INFORMATION: Exam: XR Chest Exam date and time: 12/12/2024 4:24 PM Age: 64 years old Clinical indication: Shortness of breath; Additional info: Swelling, SOA TECHNIQUE: Imaging protocol: Radiologic exam of the chest. Views: 1 view. COMPARISON: CR XR CHEST 2V 12/03/2024 2:24 PM and chest radiograph dated 11/09/2024 FINDINGS: Lungs: Flattening of the hemidiaphragms and increase in the AP diameter of the chest suggest COPD. Hypovascularity to the lung apices suggests emphysema. Mildly increased interstitial markings in the lung bases are stable consistent with parenchymal scarring. No focal areas of consolidation. Calcified left hilar lymph nodes indicate prior granulomatous disease. Pleural spaces: No pleural effusions. Negative for pneumothorax. Heart/Mediastinum: Cardiac silhouette and pulmonary vasculature are within range of normal. Bones/joints: There is no evidence of acute fracture. There is a remote fracture which is unchanged involving the right posterior 5th rib. IMPRESSION: 1. Stable exam. No acute process. 2. COPD/emphysema. 3. Basilar mild fibrosis.
[2024-12-12 16:12] VITALS: BP 127/77; PULSE 61; RESP 19; O2SAT 97
[2024-12-12 16:30] VITALS: BP 128/68; PULSE 62; TEMP -7.2; TEMP 19; O2SAT 93
--- OUTSIDE RECORDS SUMMARY | 2024-12-12 16:30 | XMS_ITS | CCD ---
Author Organization Unknown Care Team Providers Care Medical Administrative Name Role Phone Unavailable Primary Care Provider Unavailabl e Unavailable Chronic Care Management Unavaila ble Summary Purpose DataExchange Insurance Providers Payer name Policy type / Coverage type Covered democrat ID Effective Begin Date Effective End Date [facility] [id number] Unknown Unknown Family History Family History data not found Medication Administered No Medication Administered data Reason For Visit No Reason For Visit data Medical Equipment No Medical Equipment data Advance Directives No Advance Directive data
--- OUTSIDE RECORDS SUMMARY | 2024-12-12 16:30 | XMS_ITS | CCD ---
Author Organization Unknown Care Team Providers Care Pets And Pet Supplies Salesperson Name Role Phone Unavailable Primary Care Provider Unavailabl e Unavailable Chronic Care Management Unavaila ble Summary Purpose DataExchange Insurance Providers Payer name Policy type / Coverage type Covered alliance party ID Effective Begin Date Effective End Date [facility] [id number] Unknown Unknown Family History Family History data not found Medication Administered No Medication Administered data Reason For Visit No Reason For Visit data Medical Equipment No Medical Equipment data Advance Directives No Advance Directive data
--- NOTE | 2024-12-12 16:55 | HMH.EDGENADL ---
Discharge Plan Disposition Patient Disposition: Home, Self-Care Prescriptions Prescriptions: New furosemide [Lasix] 20 mg tablet 20 mg PO DAILY Qty: 30 1RF No Action levofloxacin 750 mg tablet 750 mg PO DAILY 10 Days Qty: 10 0RF bupropion HCl 75 mg tablet 75 mg PO DAILY Qty: 30 2RF gabapentin 600 mg tablet 600 mg PO TID oxycodone-acetaminophen 7.5-325 mg tablet 1 tab PO TID duloxetine 60 mg capsule,delayed release(DR/EC) 60 mg PO BID 90 Days Qty: 180 3RF Entresto 24-26 mg tablet 1 tab PO BID Qty: 60 5RF ipratropium-albuterol 0.5 mg-3 mg(2.5 mg base)/3 mL solution for nebulization 3 ml IH QID PRN (Reason: shortness of breath or wheezing) Qty: 180 2RF Stiolto Respimat 2.5-2.5 mcg/actuation mist 2 puff inhalation DAILY 90 Days Qty: 4 2RF albuterol sulfate 90 mcg/actuation HFA aerosol inhaler 2 inh INHALATION QIDP PRN (Reason: Shortness Of Breath Or Wheezing) Patient Comments: INHALE TWO PUFFS BY MOUTH FOUR TIMES DAILY NEEDED FOR SHORTNESS OF BREATH OR wheezing atorvastatin 20 mg tablet 20 mg PO HS carvedilol 3.125 mg tablet 3.125 mg PO BID Referrals Follow up/Referrals: Aldo Simmons APRN [Primary Care Provider, Family Practice] - See instructions Activity Restrictions/Add. Instructions Additional Instructions/Restrictions: Call your family doctor to establish care for this visit to the emergency department and schedule follow-up within 48 hours to ensure improvement. If you have any worsening of your condition or any other concerning signs or symptoms, return to the emergency department or your primary care doctor for further evaluation. Furosemide daily until following up with your family doctor within 7 to 10 days to reevaluate and check your electrolytes including BNP (heart failure number). Clinical Impressions Clinical Impression: Bilateral edema of lower extremity Print Language Print Language: Slovenian Discharge ED Provider: Steven Hewitt General Adult HPI General Chief complaint: Extremity Problem,Nontraumatic Stated complaint: Feet sweeling 3-4xdays Time Seen by Provider: 12/12/24 15:58 Mode of Arrival: Ambulatory Source of Information: Patient Description of Symptoms (Recalled from ER Triage Doc. by RN): c/o lower extremity swelling for the past few days with minimal pain. denies any increased soa than baseline. History of Present Illness HPI narrative: Please note that above description of symptoms, in this electronic medical record under categorization of recalled from ER triage doctor by RN are reflective of an initial nursing assessment, however, is not reflective of my full history and physical exam that was personally taken and clarified. Consequentially, this preceding description of symptoms, which may include the patient's categorized chief complaint in the EMR, do not reflect my personal clinical impression, and the ultimate description of history of present illness and patient stated complaints should be deferred to this section of the note. Unless stated otherwise or congruent with this section of the note, additional signs, symptoms, or incongruence should be interpreted as inaccurate with my clinical impression. Related Data Home Medications ?Medication ?Instructions ?Recorded ?Confirmed albuterol sulfate 90 mcg/actuation 2 inh inhalation QIDP PRN 11/05/23 12/03/24 aerosol inhaler Shortness Of Breath Or Wheezing gabapentin 600 mg tablet 600 mg PO TID 10/20/24 12/03/24 oxycodone-acetaminophen 7.5 mg-325 1 tab PO TID 10/20/24 12/03/24 mg tablet atorvastatin 20 mg tablet 20 mg PO HS 11/03/24 12/03/24 carvedilol 3.125 mg tablet 3.125 mg PO BID 11/03/24 12/03/24 Previous Rx's ?Medication ?Instructions ?Recorded duloxetine 60 mg capsule,delayed 60 mg PO BID 90 days #180 caps 10/23/24 release bupropion HCl 75 mg tablet 75 mg PO DAILY #30 tabs 11/11/24 ipratropium 0.5 mg-albuterol 3 mg 3 ml inhalation QID PRN shortness 11/13/24 (2.5 mg base)/3 mL nebulization of breath or wheezing #180 mL soln sacubitril 24 mg-valsartan 26 mg 1 tab PO BID #60 tabs 11/13/24 tablet (Entresto) tiotropium 2.5 mcg-olodaterol 2.5 2 puff inhalation DAILY 90 days #4 11/19/24 mcg/actuation mist for inhalation grams (Stiolto Respimat) levofloxacin 750 mg tablet 750 mg PO DAILY 10 days #10 tabs 12/03/24 furosemide 20 mg tablet (Lasix) 20 mg PO DAILY #30 tabs 12/12/24 Allergies Allergy/AdvReac Type Severity Reaction Status Date / Time methocarbamol (From ROBAXIN) Allergy Unknown Shakiness Verified 12/03/24 13:12 pregabalin (From LYRICA) Allergy Unknown Shakiness Verified 12/03/24 13:12 methadone Allergy Difficulty Verified 12/03/24 13:12 Breathing ibuprofen AdvReac Cramping Verified 12/03/24 13:12 of the Muscles PFSH PFS Disclaimer: The information contained in this section may have been updated after the patient was seen, as this information can be updated by other users. Medical History Esophageal thickening Solid nodule of lung greater than 8 mm in diameter COPD mixed type Nodule of left lung SIRS (systemic inflammatory response syndrome) Acute and chronic respiratory failure with hypoxia Postherpetic trigeminal neuralgia Encounter for screening for malignant neoplasm of lung in current smoker with 30 pack year history or greater Abnormal screening computed tomography (CT) of chest Nonischemic cardiomyopathy Diastolic dysfunction Elevated left ventricular end-diastolic pressure (LVEDP) Non-STEMI (non-ST elevated myocardial infarction) Emphysema/COPD Pneumonia due to gram-negative bacteria Low body mass index (BMI) COPD (chronic obstructive pulmonary disease) with acute bronchitis Upper respiratory infection Rhinovirus infection HLD (hyperlipidemia) Tobacco dependence syndrome Chest pain Cardiomyopathy Preoperative clearance Poisoning by opiate or related narcotic Atypical pneumonia Postherpetic neuralgia Left against medical advice HTN (hypertension) Elevated C-reactive protein CAP (community acquired pneumonia) COPD (chronic obstructive pulmonary disease) Pain, eye, right Herpes zoster ophthalmicus, right eye Eye pain Shingles Neuropathy Surgical History H/O cervical spine surgery H/O cardiac catheterization Family History Mother Lung cancer Family history of acute congestive heart failure Father Lung cancer Family history of acute congestive heart failure Social History Smoking Status: Former smoker tobacco type: cigarettes packs per day: 1 smoking status stop date: december 2021 second hand exposure: Yes alcohol intake: former substance use type: denies use current occupational status: disabled Travel in the last 8 weeks?: None household members: children housing: house marital status: current occupational exposures/hazards: No pets and animals: No caffeine: Yes Have you lived/traveled outside US in past 30 days?: No Contact w/someone who lives/traveled outside US past 30 days?: No Exposure to someone with infectious disease in past 14 days?: No Do you have a fever (greater than 100.4 F or 38 C)?: No Have you tested positive for COVID-19?: No Exposed to someone with COVID-19 in past 14 days?: No Do you have a sore throat?: No Do you have a cough?: No Do you have any weakness?: No Do you have any diarrhea?: No Are you experiencing any unusual bleeding?: No Do you have any muscle aches/pain?: No Do you have any abdominal pain?: No Are you experiencing loss of taste or smell?: No Other Medical History Have you received the Flu Vaccine for this season: No Have you received the Pneumonia Vaccine: Yes ROS Obtained: Yes All systems reviewed & no additional complaints except as documented Physical Exam General General appearance: alert and in no apparent distress Head Head exam: atraumatic and normocephalic Eye Eye exam: Present normal appearance, PERRL and EOMI Neck Neck exam: Present normal inspection, full ROM and trachea midline Respiratory Respiratory exam: Present wheezes and other (Speaking in full sentences); Absent respiratory distress, stridor, accessory muscle use or prolonged expiratory phase Cardiovascular Cardiovascular exam: Present regular rate, normal rhythm and other (Pulses equal symmetric in upper and lower extremities) Abdominal Exam Abdominal exam: Present soft; Absent distention, tenderness or pulsatile mass Extremities Exam Extremities exam: Present edema (1+ lower extremity pitting edema) Neurological Exam Neurological exam: Present alert, oriented X3 and CN II-XII intact; Absent motor sensory deficit Skin Skin exam: Present warm and dry; Absent diaphoresis or erythema Medical Decision Making Medical Records Medical records reviewed: Yes I reviewed the patient's medical records. Screening: Per USPSTF and CDC recommendations, given the prevalence of disease in our region, it is our hospital?s policy to screen for HIV and viral Hepatitis for all patients aged 18 and over and those with ongoing risk factors. Marck Inquiry Pt receiving controlled substance: No Marck was queried for this patient: No Vital Signs: 12/12/24 14:52 12/12/24 16:12 12/12/24 16:30 Temperature 97.8 F 19 F L Temperature Source Oral Pulse Rate 61 62 Pulse Rate [Left Radial] 95 H Respiratory Rate 20 19 Blood Pressure 127/77 128/68 Blood Pressure [Right Arm] 105/70 L Blood Pressure Mean 97 Blood Pressure Mean [Right Arm] 81 02 Sat by Pulse Oximetry 94 L 97 93 L Oxygen Delivery Method Nasal Cannula Room Air Room Air Oxygen Flow Rate (LPM) 2 12/12/24 17:12 Temperature Temperature Source Pulse Rate 68 Pulse Rate [Left Radial] Respiratory Rate 19 Blood Pressure 124/66 Blood Pressure [Right Arm] Blood Pressure Mean 85 Blood Pressure Mean [Right Arm] 02 Sat by Pulse Oximetry 95 Oxygen Delivery Method Room Air Oxygen Flow Rate (LPM) Lab Data Lab Results 12/12/24 15:06: WBC 6.1, RBC 3.80 L, Hgb 10.3 L, Hct 32.8 L, MCV 86.3, MCH 27.1, MCHC 31.4 L, RDW 17.3, Plt Count 421, MPV 8.9, Neut % (Auto) 58.3, Lymph % (Auto) 25.1, [place] % (Auto) 10.3 H, Eos % (Auto) 4.6, Baso % (Auto) 1.5, Neut # (Auto) 3.6, Lymph # (Auto) 1.5, [place] # (Auto) 0.6, Eos # (Auto) 0.3, Baso # (Auto) 0.1, Total Counted 100, Neutrophils % (Manual) 73, Lymphocytes % (Manual) 26, Monocytes % (Manual) 1 L, Platelet Estimate Normal, Target Cells 1+, Sodium 135 L, Potassium 4.0, Chloride 97 L, Carbon Dioxide 31 H, Anion Gap 11.0, BUN 20, Creatinine 0.60 L, Estimated Creat Clear 58, Estimated GFR 135, Est GFR ( Amer) 163, Glucose 99, Calcium 9.3, Total Bilirubin 0.5, AST 32, ALT 9 L, Alkaline Phosphatase 79, NT-Pro-B Natriuret Pep 627 H, Total Protein 6.9, Albumin 3.6, Globulin 3.3 H, Albumin/Globulin Ratio 1.1 12/12/24 15:06 12/12/24 15:06 Orders (Tests/Meds): ED MEDICATIONS Discontinued Medications Generic Name Dose Route Start Last Admin Trade Name Halina PRN Reason Stop Dose Admin Albuterol/Ipratropium 9 ml 12/12/24 16:55 12/12/24 17:14 Ipratropium/Albuterol 3 Ml Neb IH 12/12/24 16:56 9 ml ONCE ONE Administration Furosemide 40 mg 12/12/24 16:58 12/12/24 17:13 Furosemide 40mg/4ml Vial IV 12/12/24 16:59 40 mg ONCE ONE Administration ORDERS Category Date Time Status CXR --portable [XR chest portable] Stat Exams 12/12/24 16:08 Taken BNP [NT Pro Brain Natriuretic Pep.] Stat Lab 12/12/24 15:06 Completed Complete Blood Count Man Dif Stat Lab 12/12/24 15:06 Completed Comprehensive Metabolic Panel Stat Lab 12/12/24 15:06 Completed Medical Decision Narrative: This is a 64-year-old male presenting with lower extremity swelling. Has been getting worse over the past 3 to 4 days. States that he has had more trouble laying flat at night than he typically does. No chest pain, shortness of breath, cough, nausea, vomiting, or any changes from his baseline. Has not needed to increase his oxygen from his baseline. Came in for further evaluation. History was obtained via conversation with patient. On arrival, patient hemodynamically stable, alert, [oriented x4, ][appropriate, ]GCS [15], moving all extremities spontaneously, pupils equal and reactive to light. Full physical exam performed and significant for well-appearing male no acute distress. Speaking in full sentences. His lungs are wheezy on expiration. Lower extremity 1+ pitting edema bilaterally. Pulses equal and measured. Differential includes pneumonia, COPD exacerbation, CHF exacerbation, bronchitis, dependent edema, among others. Patient placed on continuous cardiac monitoring and continuous pulse ox with initial blood pressure 128/68, heart rate 62, saturation 93% on 2 L nasal cannula. Patient was given DuoNebs for symptomatic management[ and correction of underlying abnormalities]. Workup independently interpreted and significant for nonactionable CBC or chemistry, BNP elevated nearly 630 which is about as high as its ever been for patient.. On independent interpretation of imaging, chronic lung findings, no evidence of effusions edema. See radiology read for full review of final results. On reevaluation, patient resting comfortably in bed. Also given 40 mg IV Lasix. Given patient presentation, workup, history, this most likely represents fluid retention, mild CHF exacerbation without pulmonary edema. Because patient at baseline without signs or symptoms of clinical decompensation, deemed appropriate for discharge. Results were relayed to patient[] who voiced understanding and were agreeable to outpatient management and follow up. I discussed my clinical impression with patient[] and answered all questions. At this time, the evidence for any other entities in the differential is insufficient to warrant any further testing or ED observation. This was explained as well. Advisory was given that persistent or worsening symptoms require further evaluation. I confirmed the understanding of this discussion. Sent home with Lasix and primary care follow-up. Space Control Agent disclaimer Much of this encounter note is an electronic car pick up driver spoken language to printed text. Electronic car pick up driver of the spoken language may permit errors. Although I have reviewed the note, some errors may still exist. Critical Care Critical Care Time Critical Care Time: No
[2024-12-12 17:04] LABS: Lymphocytes % 26 % (10-50); Monocytes % 1 % (2-9); Neutrophils % 73 % (42-76); Total Cells Counted 100
[2024-12-12 17:07] LABS: Platelet Estimate Normal; Target Cells 1+
[2024-12-12 17:12] VITALS: BP 124/66; PULSE 68; RESP 19; O2SAT 95
[2024-12-12] MEDS: FUROSEMIDE 40MG/4ML VIAL 40 MG IV (17:13)
[2024-12-12] MEDS: IPRATROPIUM/ALBUTEROL 3 ML NEB 9 ML IH (17:14)
[2024-12-12 17:21] VITALS: BP 112/76; PULSE 71; O2SAT 100
[2024-12-12 18:01] VITALS: BP 112/76; PULSE 64; RESP 16; TEMP 36.6; O2SAT 94
== END 2024-12-12 18:03 | disposition home or self-care (01) ==
PROVIDERS: Emergency Provider Emergency Medicine; PCP Nurse Practitioner Family
DX: R60.0 Localized edema (principal); M79.671 Pain in right foot; M79.672 Pain in left foot; I11.0 Hypertensive heart disease with heart failure; I50.30 Unspecified diastolic (congestive) heart failure; E78.5 Hyperlipidemia, unspecified; J44.9 Chronic obstructive pulmonary disease, unspecified; Z87.891 Personal history of nicotine dependence
CPT/HCPCS: 71045; 80053; 83880; 85007; 85014; 85018; 85048; 85049; 96374; 99284; J1938

== ENCOUNTER 2025-01-07 10:06 | Outpatient (CLI) | payer MEDICARE, MEDICAID, SELFPAY ==
--- NOTE | 2025-01-07 | CA_ITS ---
APPROVED REPORT Exam: Pharmacologic Technologist: Ysabel De Leon Ht: 7 ft 2 in Wt: 117 lbs BSA: 1.93 m2 Medical History Medications: Albuterol, atorvastatin, bupropion HCI, carvedilol, duloxetine, lasix, gabapentin, duoneb, oxycodone-tylenol, entresto. stiolto respimat. Stress Test Details Test: Lexiscan Reason for pharmacologic stress test: physical limitation. HR Resting HR: 58 bpm Max Heart Rate (APMHR): 154.727854 bpm Max HR Achieved: 77 bpm Target HR (85% APMHR): 130.190049 bpm % of APMHR: 50.00 Recovery HR: 64 bpm BP Resting BP: 128.0/70.0 mmHg Max BP: 142.0/67.0 mmHg Recovery BP: 128.0/55.0 mmHg ECG Resting ECG: SB Stress ECG Conclusion Symptoms: SOB with Lexiscan. Arrhythmias/Ectopy: ST-T Changes: unremarkable with Lexiscan. Electronically signed by : Polina Vallecillo MD 01/10/2025 18:56:02
--- OUTSIDE RECORDS SUMMARY | 2025-01-07 10:11 | XMS_ITS | Clinical Summary ---
Author Organization Healthcare Address [address] [id number] Care Team Providers Care Cashier Supervisor Name Role Phone Unavailable Primary Care Provider [...] 2008 UKY-Zoster Vaccines (1 of 2) 2008 [id number] Vaccine (1 - 20 24-25 season) 2024 UKY-Influenza Vaccine (#1) 2025 05/04/2019 UKY-RSV Vaccine: 60+ Years o [...] patient's age to complete this topic Insurance MEDICARE
--- OUTSIDE RECORDS SUMMARY | 2025-01-07 10:11 | XMS_ITS | Referral Summary ---
Author Organization [facility] ([place], [place], [place], [place]) Address [address] [place] [address] Care Team Providers Care Undercover Cop Name Role Phone Vikas Rzio DO Primary Care Provider [phone] Allergies Active Allergy Reactions Criticality Noted Date [...] Date Ismael rded Speak language other than French at home Not on file 11/02/2023 Want [...] on file Insurance PPO MAP Care Teams Undercover Cop Relationship Specialty Start Date End Date Vikas Rizo DO PCP - General Internal Medicine 04/16/24
--- OUTSIDE RECORDS SUMMARY | 2025-01-07 10:11 | XMS_ITS | Clinical Summary ---
Author Organization [facility] ([place], [place], [place], [place]) Address [address] [place] [address] Care Team Providers Care Wild Oyster Harvester Name Role Phone Vikas Rizo DO Primary Care Provider [phone] Allergies Active Allergy Reactions Criticality Noted Date [...] Date Ismael rded Speak language other than Kosovan at home Not on file 11/02/2023 Want [...] Medicare Initial AWV [id number] 06/18/2024 Influenza Vaccine (#1) 2025 Respiratory Syncytial Virus (RSV) Adult or (1 - 1-dose 75+ series) 2033 Shingles Vaccine (Zoster) Completed 01/17/2022, 04/2021 Insurance [employer] MAP Care Teams Wild Oyster Harvester Relationship Specialty Start Date End Date Vikas Rizo DO PCP - General Internal Medicine 04/16/24
--- NOTE | 2025-01-07 10:15 | CA_ITS ---
APPROVED REPORT EXAM: Comprehensive 2D, Doppler, and color-flow Echocardiogram Paper Bag Machine Operator: Mala Kwong CRT Ht: 6 ft 2 in Wt: 117lbs BSA: 1.73 BP: 103/70 mmHg Indications: Chest Pain, Congestive Heart Failure, COPD, Cardiomyopathy, Hypertension/HDD 2D Dimensions LA Volume 23.80 mL LA Volume Index 13.40 mL/m2 (M/F) 16-34 M-Mode Dimensions RVDd 3.41 cm (0.9-2.6) LA Diam 2.60 cm (1.9-4.0) LVDd 4.06 cm (3.5-5.7) LVDs 3.09 cm (3.5-5.7) IVSd 1.03 cm (0.6-1.1) PWd 1.03 cm (0.6-1.1) EF (Teich) 48.10% FS 23.90% EDV (Teich) 72.50 mL TAPSE 2.09 (<1.7) ESV (Teich) 37.60 mL LV Diastology E Decel Time 293 (160-240 msec) E/A Ratio 1.20 MED A' 9.20 cm/s LAT A' 10.80 cm/s Aortic Valve AO Peak GR. 6.20 mmHg Mitral Valve MV E Max Clifford. 70.0 (40-130 cm/s) MV A Velocity 59.0 (40-130 cm/s) E/A Ratio 1.20 MV PHT 86.0 ms Pulmonary Valve PV Peak Velocity 101.0 (50-150 cm/s) Tricuspid Valve TR P. Velocity 287.00 cm/s RAP Estimate 10.00 mmHg RVSP 42.90 mmHg Left Ventricle The left ventricle is normal size. The left ventricular systolic function is normal. The left ventricular ejection fraction is within the normal range. There is normal left ventricular wall thickness. There is normal LV segmental wall motion. The left ventricular diastolic function is normal. LVEF is 55%. Right Ventricle The right ventricle is normal size. The right ventricular systolic function is normal. Atria The left atrium size is normal. The right atrium size is normal. There is no Doppler evidence of interatrial shunt. Aortic Valve The aortic valve opens well. There is no aortic valvular stenosis. No aortic regurgitation is present. Mitral Valve The mitral valve is normal in structure. No evidence of mitral valve stenosis. There is no mitral valve regurgitation noted. Tricuspid Valve Tricuspid valve is grossly normal in structure and function. Trace tricuspid regurgitation. There is insufficient TR jet to estimate RVSP. Pulmonic Valve The pulmonary valve is normal in structure. Trace pulmonic regurgitation. Great Vessels The aortic root is normal in size. IVC is normal in size and collapses >50% with inspiration. Pericardium There is no pericardial effusion. Other Information Study Quality: Fair Conclusion Normal biventricular systolic function. No significant valvular stenosis or regurgitation. Electronically signed by : Polina Vallecillo MD 01/11/2025 19:32:10
--- OUTSIDE RECORDS SUMMARY | 2025-01-07 11:11 | XMS_ITS | CCD ---
Author Organization Unknown Care Team Providers Care Doll Wigs Hackler Name Role Phone Unavailable Primary Care Provider Unavailabl e Unavailable Chronic Care Management Unavaila ble Summary Purpose DataExchange Insurance Providers Payer name Policy type / Coverage type Covered constitution party ID Effective Begin Date Effective End Date [facility] [id number] Unknown Unknown Family History Family History data not found Medication Administered No Medication Administered data Reason For Visit No Reason For Visit data Medical Equipment No Medical Equipment data Advance Directives No Advance Directive data
--- OUTSIDE RECORDS SUMMARY | 2025-01-07 11:11 | XMS_ITS | CCD ---
Author Organization Unknown Care Team Providers Care Hims Clerk Name Role Phone Unavailable Primary Care Provider Unavailabl e Unavailable Chronic Care Management Unavaila ble Summary Purpose DataExchange Insurance Providers Payer name Policy type / Coverage type Covered green party ID Effective Begin Date Effective End Date [facility] [id number] Unknown Unknown Family History Family History data not found Medication Administered No Medication Administered data Reason For Visit No Reason For Visit data Medical Equipment No Medical Equipment data Advance Directives No Advance Directive data
--- NOTE | 2025-01-07 11:30 | NM_ITS ---
APPROVED REPORT Exam: Nuclear Stress Test Indication: chf, hyperlipidemia, fm hx, sob Patient Location: Outpatient Stress Tech: Ysabel Woods [place] Tech:Ann Morales, ARRT, RT (R)(N) Ht: 6 ft 2 in Wt: 123 lbs HR: 58 bpm BP: 128/70 mmHg BSA: 1.77 m2 TID: 0.99 BMI: 15.7 History: chf, hyperlipidemia, fm hx, sob Procedure: Patient received 0.4 mg of intravenous Lexiscan, resting heart rate 58 bpm, resting blood pressure 128/70 mmHg, with Lexiscan maximum heart rate achieved was 78 bpm which is % of the maximum predicted heart rate and blood pressure was 142/67 mmHg. With Lexiscan, patient denied any complaint of chest pain. Cardiac Stress and Resting SPECT Images: Cardiac Stress and Resting SPECT images were obtained using technetium 99m Myoview 30.5 mCi stress and 10.62 mCi at rest. Resting and stress imaging in supine and prone positions demonstrate, large sized, moderate, partially reversible perfusion defect in the septal and inferoseptal LV alberto. Gated imaging demonstrates mild reduction in global LV systolic function. There is moderate hypokinesis of the septal LV wall. LVEF is calculated at 45%. Conclusion: Large sized, moderate, partially reversible perfusion defect in the septal and inferoseptal LV alberto. Gated imaging demonstrates mild reduction in global LV systolic function. There is moderate hypokinesis of the septal LV wall. LVEF is calculated at 45%. Electronically signed by : Polina Vallecillo MD 01/10/2025 18:52:05
[2025-01-07] MEDS: ISOTOPE MYOVIEW (PER STUDY) 1 DOSE IV (13:23)
[2025-01-07] MEDS: SODIUM CHLORIDE 0.9% 10ML SYR (RAD ONLY) 10 ML IV ×2 (13:23)
== END 2025-01-07 23:59 | disposition home or self-care (01) ==
PROVIDERS: PCP Nurse Practitioner Family; Visit Provider Nurse Practitioner Family
DX: I11.0 Hypertensive heart disease with heart failure (principal); I50.33 Acute on chronic diastolic (congestive) heart failure; E78.5 Hyperlipidemia, unspecified; J44.9 Chronic obstructive pulmonary disease, unspecified; I42.9 Cardiomyopathy, unspecified; R79.89 Other specified abnormal findings of blood chemistry; R94.39 Abnormal result of other cardiovascular function study
CPT/HCPCS: 78452; 93016; 93017; 93018; 93306; A9502; J2785

== ENCOUNTER 2025-03-03 15:07 | Emergency (ER) | payer MEDICARE, MEDICAID, SELFPAY ==
--- NOTE | 2025-03-03 15:14 | ED_ITS ---
<Statement entered by Celsa Dangelo DO - 03/04/25 21:57> I was consulted by the BRONSON, and we discussed the complexity of problems being addressed. I approve the treatment and management plan for this patient's care in the emergency department, thus performing a substantial portion of the medical decision making. Celsa Dangelo DO Discharge Plan Disposition Patient Disposition: Home, Self-Care Condition: Good Prescriptions Prescriptions: New gabapentin 600 mg tablet 600 mg PO TID Qty: 20 0RF No Action bupropion HCl 75 mg tablet 75 mg PO DAILY Qty: 30 2RF gabapentin 600 mg tablet 600 mg PO TID oxycodone-acetaminophen 7.5-325 mg tablet 1 tab PO TID duloxetine 60 mg capsule,delayed release(DR/EC) 60 mg PO BID 90 Days Qty: 180 3RF Entresto 24-26 mg tablet 1 tab PO BID Qty: 60 5RF Stiolto Respimat 2.5-2.5 mcg/actuation mist 2 puff inhalation DAILY 90 Days Qty: 4 2RF atorvastatin 20 mg tablet 20 mg PO HS Qty: 90 3RF furosemide [Lasix] 20 mg tablet 20 mg PO DAILY Qty: 90 1RF ipratropium-albuterol 0.5 mg-3 mg(2.5 mg base)/3 mL solution for nebulization See Rx Instructions .ROUTE .COMPLEX Qty: 180 1RF Dose Instruction: USE 3 ML IN NEBULIZER INHALED FOUR TIMES A DAY NEEDED FOR SHORTNESS OF BREATH OR WHEEZING Rx Instructions: USE 3 ML IN NEBULIZER INHALED FOUR TIMES A DAY NEEDED FOR SHORTNESS OF BREATH OR WHEEZING albuterol sulfate 90 mcg/actuation HFA aerosol inhaler 2 inh INHALATION QIDP PRN (Reason: Shortness Of Breath Or Wheezing) Patient Comments: INHALE TWO PUFFS BY MOUTH FOUR TIMES DAILY NEEDED FOR SHORTNESS OF BREATH OR wheezing carvedilol 3.125 mg tablet 3.125 mg PO BID Referrals Follow up/Referrals: Aldo Simmons APRN [Primary Care Provider, Family Practice] - See instructions Activity Restrictions/Add. Instructions Additional Instructions/Restrictions: Please follow-up with your eye doctor in the upcoming days/weeks. Please take all your medication as prescribed. Please return to the emergency department with any worsening signs or symptoms. How to Apply Eye Ointment? * Wash your hands thoroughly.? * Prepare the ointment:? * Remove the cap and hold the tube between your fingers to warm it slightly.? * Shake the tube gently if necessary.? * Position yourself:? * Sit or lie down comfortably.? * Tilt your head back slightly.? * Apply the ointment:? * Gently pull down your lower eyelid to create a pocket.? * Squeeze a small amount of ointment (about a pea-sized drop) into the pocket.? * Release your eyelid and close your eye for a few seconds.? * Spread the ointment:? * Gently massage the ointment around the inside of your eyelid with your fingertip.? * Avoid touching the eyeball directly.? * Clean up:? * Wipe away any excess ointment with a tissue.? * Replace the cap on the tube.? Clinical Impressions Clinical Impression: Abrasion of cornea, right, PHN (postherpetic neuralgia) Instructions Patient Instructions: DI for Corneal Abrasion, DI for Eye Pain Print Language Print Language: [place] Discharge ED Provider: Celsa Dangelo General Adult HPI General Chief complaint: Eye Problems Stated complaint: L eye burning, itching, watering Time Seen by Provider: 03/03/25 15:13 Mode of Arrival: Ambulatory Source of Information: Patient Limitations: No Limitations History of Present Illness HPI narrative: 64-year-old male presents the emergency department with right eye pain, irritation, blurry vision, and tearing, patient states this pain has been going on for 5 years , but worsened over the last week as patient states that he is misplaced my gabapentin , patient states he is in pain management for this, does have follow-up with his eye doctor at the end of the month, has stated patient history of bilateral what sounds like entropion/ectropion surgery, patient tells me that his eye doctor said my shingles attack to my tear ducts patient does have documented history of zoster ophthalmicus, patient denies any fever chills denies any flashes or floaters, denies any change in visual acuity, denies any trauma or injury to the eye, but does state that he has been itching , his eye more than usual this week, denies abdominal pain chest pain shortness of breath nausea vomiting constipation diarrhea no urinary type symptomatology, other past medical history is consistent with HFpEF, chronic pain syndrome, COPD, anemia, degenerative disc disease, postherpetic neuralgia, hypertension, hyperlipidemia. Initial triage vitals unremarkable. Patient denies any tobacco alcohol or drug use. Please note that above description of symptoms, in this electronic medical record under categorization of recalled from ER triage doctor by RN are reflective of an initial nursing assessment, however, is not reflective of my full history and physical exam that was personally taken and clarified. Consequentially, this preceding description of symptoms, which may include the patient's categorized chief complaint in the EMR, do not reflect my personal clinical impression, and the ultimate description of history of present illness and patient stated complaints should be deferred to this section of the note. Unless stated otherwise or congruent with this section of the note, additional signs, symptoms, or incongruence should be interpreted as inaccurate with my clinical impression. Onset (ago): week(s) Related Data Home Medications ?Medication ?Instructions ?Recorded ?Confirmed albuterol sulfate 90 mcg/actuation 2 inh inhalation QI DP PRN 11/05/23 12/15/24 aerosol inhaler Shortness Of Breath Or Wheez ing gabapentin 600 mg tablet 600 mg PO TID 10/20/2412/15 oxycodone-acetaminophen 7.5 mg-325 1 tab PO TID 12/15/24 mg tablet carvedilol 3.125 mg tablet 3.125 mg PO BID 11/03/24 Previous Rx's ?Medication ?Instructions ?Recorded duloxetine 60 mg capsule,delayed 60 mg PO BID 90 days #180 caps 10/23/24 release bupropion HCl 75 mg tablet 75 mg PO DAILY #30 tabs sacubitril 24 mg-valsartan 26 mg 1 tab PO BID #60 tabs 11/13/24 tablet (Entresto) tiotropium 2.5 mcg-olodaterol 2.5 2 puff inhalation DA MARCELO 90 days #4 11/19/24 mcg/actuation mist for inhalation grams (Stiolto Respimat) atorvastatin 20 mg tablet 20 mg PO HS #90 tabs 5 furosemide 20 mg tablet (Lasix) 20 mg PO DAILY #90 tab s 02/15/25 ipratropium 0.5 mg-albuterol 3 mg See Rx Instructions .Route 02/17/25 (2.5 mg base)/3 mL nebulization .COMPLEX #180 mL soln gabapentin 600 mg tablet 600 mg PO TID #20 tabs 03/03 Allergies Allergy/AdvReac Type Severity Reaction Status Date / Time methocarbamol (From ROBAXIN) Allergy Unknown Shakiness Verified 12/15/24 10:50 pregabalin (From LYRICA) Allergy Unknown Shakiness Verified 12/15/24 10:50 methadone Allergy Difficulty Verified 12/15/24 10:50 Breathing ibuprofen AdvReac Cramping Verified 12/15/24 10:50 of the Muscles PFSH PFS Disclaimer: The information contained in this section may have been updated after the patient was seen, as this information can be updated by other users. Medical History (Updated 03/03/25 @ 15:54 by MATT Noe) (HFpEF) heart failure with preserved ejection fraction Esophageal thickening Solid nodule of lung greater than 8 mm in diameter COPD mixed type Nodule of left lung SIRS (systemic inflammatory response syndrome) Acute and chronic respiratory failure with hypoxia Postherpetic trigeminal neuralgia Encounter for screening for malignant neoplasm of lung in current smoker with 30 pack year history or greater Abnormal screening computed tomography (CT) of chest Nonischemic cardiomyopathy Diastolic dysfunction Elevated left ventricular end-diastolic pressure (LVEDP) Non-STEMI (non-ST elevated myocardial infarction) Emphysema/COPD Pneumonia due to gram-negative bacteria Low body mass index (BMI) COPD (chronic obstructive pulmonary disease) with acute bronchitis Upper respiratory infection Rhinovirus infection HLD (hyperlipidemia) Tobacco dependence syndrome Chest pain Cardiomyopathy Preoperative clearance Poisoning by opiate or related narcotic Atypical pneumonia Postherpetic neuralgia Left against medical advice HTN (hypertension) Elevated C-reactive protein CAP (community acquired pneumonia) COPD (chronic obstructive pulmonary disease) Pain, eye, right Herpes zoster ophthalmicus, right eye Eye pain Shingles Neuropathy Surgical History H/O cervical spine surgery H/O cardiac catheterization Family History Mother Lung cancer Family history of acute congestive heart failure Father Lung cancer Family history of acute congestive heart failure Social History Smoking Status: Never smoker smoking status stop date: december 2021 second hand exposure: Yes alcohol intake: former substance use type: denies use current occupational status: disabled Travel in the last 8 weeks?: None household members: children housing: house marital status: current occupational exposures/hazards: No pets and animals: No caffeine: Yes Have you lived/traveled outside [place] in past 30 days?: No Contact w/someone who lives/traveled outside [place] past 30 days?: No Exposure to someone with infectious disease in past 14 days?: No Do you have a fever (greater than 100.4 F or 38 C)?: No Have you tested positive for COVID-19?: No Exposed to someone with COVID-19 in past 14 days?: No Do you have a sore throat?: No Do you have a cough?: No Do you have any weakness?: No Do you have any diarrhea?: No Are you experiencing any unusual bleeding?: No Do you have any muscle aches/pain?: No Do you have any abdominal pain?: No Are you experiencing loss of taste or smell?: No Other Medical History Have you received the Flu Vaccine for this season: No Have you received the Pneumonia Vaccine: Yes ROS Obtained: Yes All systems reviewed & no additional complaints except as documented Physical Exam General General appearance: alert and in no apparent distress Head Head exam: atraumatic and normocephalic Eye Eye exam: Present PERRL, EOMI, conjunctival injection, discharge and other (Watery discharge, some except most, and entropion is present on the right eye, ); Absent normal appearance or conjunctival redness ENT ENT exam: Present mucous membranes moist Neck Neck exam: Present normal inspection Chest Chest inspection: Present normal inspection and symmetric chest wall rise Respiratory Respiratory exam: Present normal lung sounds bilaterally; Absent respiratory distress Cardiovascular Cardiovascular exam: Present regular rate and normal rhythm Abdominal Exam Abdominal exam: Present soft; Absent tenderness Extremities Exam Extremities exam: Present normal inspection Neurological Exam Neurological exam: Present alert and oriented X3 Psychiatric Psychiatric exam: Present normal affect Skin Skin exam: Present warm and dry Medical Decision Making Medical Records Medical records reviewed: Yes I reviewed the patient's medical records. Screening: Per USPSTF and CDC recommendations, given the prevalence of disease in our region, it is our hospital?s policy to screen for HIV and viral Hepatitis for all patients aged 18 and over and those with ongoing risk factors. Marck Inquiry Pt receiving controlled substance: No Marck was queried for this patient: No Vital Signs: 03/03/25 15:16 Temperature 98.3 F Temperature Source Temporal Artery Scan Pulse Rate [Right Radial] 69 Respiratory Rate 20 Blood Pressure [Right Arm] 130/76 Blood Pressure Mean [Right Arm] 94 Blood Pressure Source [Right Arm] Automatic Cuff Blood Pressure Position [Right Arm] Sitting 02 Sat by Pulse Oximetry 94 L Oxygen Delivery Method Room Air Orders (Tests/Meds): ED MEDICATIONS Generic Name Dose Route Start Last Admin Trade Name Halina PRN Reason Stop Dose Admin Erythromycin 0.5 gm 03/03/25 15:55 Erythromycin Base 1 Gm Oint...G. OP 03/03/25 15:56 ONCE ONE Fluorescein Sodium 1 mg 03/03/25 15:54 Fluorescein Sodium 1mg Strip OP 03/03/25 15:55 ONCE ONE Tetracaine HCl 0 ml 03/03/25 15:54 Tetracaine 0.5% Opth Elva 15ml OP 03/03/25 15:55 ONCE ONE Medical Decision Narrative: 64-year-old male presents to the emergency department with right eye pain, has been going on for 5 years, endorses worsening 1 week of eye pain, redness, tearing, and eye irritation, differential diagnose include but not limited to, postherpetic neuralgia, corneal abrasion, corneal ulcer, keratitis, traumatic iritis among others. I discussed this patient's case with attending physician Dr. Dangelo Utilize tetracaine, and fluorescein strip, and stain the patient's eye, there are numerous areas of corneal dye uptake, consistent with corneal abrasions at different sites, around 3 PM, 7 PM, and around the patient's iris, no active dendritic lesions, no Sidel sign, no foreign body. Intraocular pressure multiple readings at 8.7, patient tells me that he has a history of low pressure . Patient appears to be at his visual acuity baseline, will refill the patient's gabapentin, patient need to follow-up with appraisal analyst, no other red flag signs or symptoms, will also treat patient for corneal abrasion with erythromy camahco ointment 4 times daily for 5 days or until ophthalmology follow-up, patient voiced understanding and agreement with the current treatment plan/discharge plan. Strict ED return precaution given. Critical Care Critical Care Time Critical Care Time: No
[2025-03-03 15:16] VITALS: BP 130/76; PULSE 69; RESP 20; TEMP 36.8; O2SAT 94; BMI 16.0
--- OUTSIDE RECORDS SUMMARY | 2025-03-03 15:42 | XMS_ITS | Clinical Summary ---
Author Organization Healthcare Address [address] [id number] Care Team Providers Care Production Tool Engineer Name Role Phone Unavailable Primary Care Provider [...] Date Last Done Comments [facility]-Depression Screening 1958 [facility]-/Child/Adol SDOH Screenings 1958 [facility]- SDOH Screenings 1976 [facility]-Adult SDOH Screenings 1976 [facility]-DTaP,Tdap,and Td Vaccine s (1 - Tdap) 1977 CT Colonography 2003 Colonoscopy 2003 FIT-DNA 2003 FIT 2003 FOBT 2003 Sigmoidoscopy 2003 [facility]-Colorectal Cancer Screening 2003 [facility]-Pneumococcal Vaccine: 50 + Years (1 of 1 - PCV) 2008 [facility]-Zoster Vaccines (1 of 2) 2008 [id number] Vaccine (1 - 20 24-25 season) 2025 [facility]-Influenza Vaccine (#1) 2025 05/04/2019 [facility]-RSV Vaccine: [...]
[2025-03-03] MEDS: ERYTHROMYCIN BASE 1 GM OINT...G. 0.5 GM OP (15:58)
[2025-03-03] MEDS: TETRACAINE 0.5% OPTH SOL 15ML OP (15:58)
[2025-03-03] MEDS: FLUORESCEIN SODIUM 1MG STRIP 1 MG OP (15:58)
[2025-03-03 16:00] VITALS: BP 103/75; PULSE 63; RESP 18; TEMP 36.7; O2SAT 93
--- OUTSIDE RECORDS SUMMARY | 2025-03-03 16:42 | XMS_ITS | CCD ---
Author Organization Unknown Care Team Providers Care Rx Specialist Name Role Phone Unavailable Primary Care Provider Unavailabl e Unavailable Chronic Care Management Unavaila ble Summary Purpose DataExchange Insurance Providers Payer name Policy type / Coverage type Covered green party ID Effective Begin Date Effective End Date [facility] [id number] Unknown Unknown Family History Family History data not found Medication Administered No Medication Administered data Reason For Visit No Reason For Visit data Medical Equipment No Medical Equipment data Advance Directives No Advance Directive data
== END 2025-03-03 16:04 | disposition home or self-care (01) ==
PROVIDERS: Emergency Provider Student in an Organized Health Care Education/Training Program; PCP Nurse Practitioner Family
DX: S05.01XA Injury of conjunctiva and corneal abrasion without foreign body, right eye, initial encounter (principal); B02.29 Other postherpetic nervous system involvement; X58.XXXA Exposure to other specified factors, initial encounter
CPT/HCPCS: 99283

== ENCOUNTER 2025-05-07 19:02 | Emergency (ER) | payer MEDICARE, MEDICAID, SELFPAY ==
[2025-05-07] VITALS (9 sets, daily range): BP systolic 88–112; BP diastolic 57–66; PULSE 53–88; RESP 19–24; TEMP 36.7; O2SAT 90–95; BMI 16.7
--- OUTSIDE RECORDS SUMMARY | 2025-05-07 19:20 | XMS_ITS | Clinical Summary ---
Author Organization Healthcare Address [address] [phone] Care Team Providers Care Winding Lathe Operator Name Role Phone Unavailable Primary Care Provider [...] 2008 [facility]-Zoster Vaccines (1 of 2) 2008 [id number] Vaccine (1 - 20 25-26 season) 2025 [facility]-Influenza Vaccine (#1) 2025 05/04/2019 [...]
--- OUTSIDE RECORDS SUMMARY | 2025-05-07 19:20 | XMS_ITS | Data Portability ---
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 Plan of Treatment Reminders Order Date Submit Date Provider Last Modified By Organization Details Last Modified Time Details Appointments None record ed. Lab None record ed. Referral None record ed. Procedures None record ed. Surgeries None record ed. Imaging None record ed. Medication Orders None record ed. Patient TargetsNo targets recorded. Patient Instructions Encounter Date Encounter Id Patient Instructions Last Modified By Organization Details Last Modified Time 08/31/2024 [id number] 1. Laryngoscopy flex performed in office today. Full risks, complications, and benefits of non-operative intervention have been thoroughly discussed. Understanding was expressed, informed consent given, and we will proceed with the discussed treatment plan. There were no questions for me at the end of the office visit. 2. Advised patient that forehead mass is likely a lipoma 3. Order barium swallow. 4. F/U with the results [email or web address] Not available 08/31/2024 16:04:57 Couple of different complaints. First he was referred for a midline scalp mass seen on MRI in 2020 thought consistent on the scan with either a cyst versus lipoma. On exam he has a soft palpable mass in the area of concern which feels most consistent to me with a lipoma. It otherwise does not bother him. Would likely just observe going forward. Complaints of dysphagia. Fairly dry sinonasal mucosa with drainage on flexible scope but otherwise reassuring laryngeal exam. Discussed setting up for a barium swallow, can likely do locally at [facility]. Discussed saline irrigations for the nose. [email or web address] Not available 08/31/2024 17:23:11 Reason for Referral None Reported. Problems Name Problem SNOMED Code Status Onset Date Resolution Date Notes Provider Name and Address Organization Details Recorded Time Low back pain 184422787 Active 2015 Provider: Daniel Bailey;Patrick owenss: Active Not Available [facility] 6 05:53:24 Lumbar spondylos is 612316370 Active 2015 From [employer];[facility] [place]: Daniel Bailey;Patrick tus: Active Not Available [facility] 6 05:53:24 Problem Notes None recorded. Procedures Surgical History Date Name Laterality Status Provider Name and Address Organization Details Recorded Time 09/01/19 25 Laryngoscopy Flex completed SERA PHAN MD [address] [place] [address], [phone] 08/31/2024 17:22:06 surgical procedure on cervical spine completed Brittaney Godwin [facility] 08/31/2024 15:13:56 Imaging Results None recorded. Procedure Notes None recorded. Medical Equipment None Reported. Allergies Allergen ID Allergen Name Allergen Category Reaction Reaction Severity Criticality Documentation Date Start Date Code Code System Note Provider Name and Address Organization Details Recorded Time 581236 Lyrica medicatio n Not available Not available Not available 08/31/2024 08146 1 RxNorm Ezio Bojang [facility] 5 15:05:47 372275 ibuprofen medicatio n Not available Not available Not available 08/31/2024 5640 RxNorm Ezio Bojang [facility] 5 15:05:57 [id number] reboxetin e Not available Not available Not available Not available 08/31/2024 24253 RxNorm Ezio Bojang [facility] 5 15:06:08 Medications Name Sig Start Date Stop Date Status Note LastModified by Organization Details LastModified Time multivita min tablet TAKE ONE TABLET BY MOUTH EVERY DAY 08/31 completed Not Available Not Available Not Available prednison e 10 mg tablet TAKE DIRECTED ON PRINTED INSTRUCT IONS 08/31 completed Not Available Not Available Not Available atorvasta tin 20 mg tablet TAKE ONE TABLET BY MOUTH EVERY DAY active Not Available Not Available No t Available ipratropi um 0.5 mg-albute rol 3 mg (2.5 mg base)/3 mL nebulizat ion soln INHALE THE CONTENTS OF 1 VIAL VIA NEBULIZE R FOUR TIMES DAILY NEEDED FOR SHORTNES S OF BREATH OR wheezing 08/31 completed Not Available Not Available Not Available atorvasta tin 10 mg tablet 08/31 completed Not Available Not Available Not Available tizanidin e 4 mg tablet TAKE 1 AND 1/2 TABLET BY MOUTH THREE TIMES DAILY MAY CAUSE DROWSINE SS active Not Available Not Available No t Available chlorzoxa zone 500 mg tablet Two times a day 08/31 completed Frequenc y: bid;Medi cation Descript ion: chlorzox azone; Dosage:1 06/18; Route:or al; refills: 0 Not Available Not Available Not Available prednison e 20 mg tablet TAKE TWO TABLETS BY MOUTH ONCE DAILY FOR 2 DAYS --TAKE WITH FOOD-- 08/31 completed Not Available Not Available Not Available olanzapin e 7.5 mg tablet TAKE ONE TABLET BY MOUTH AT BEDTIME 08/31 completed Not Available Not Available Not Available carvedilo l 3.125 mg tablet TAKE ONE TABLET BY MOUTH TWICE DAILY FOR HIGH blood pressure active Not Available Not Available No t Available oxycodone 15 mg tablet TAKE ONE TABLET BY MOUTH FOUR TIMES DAILY NEEDED FOR neuropat hy AND BACK pain 08/31 completed Not Available Not Available Not Available gabapenti n 800 mg tablet TAKE ONE TABLET BY MOUTH THREE TIMES DAILY MAY CAUSE DROWSINE SS 08/31 completed Not Available Not Available Not Available mirtazapi ne 30 mg tablet 08/31 completed Medicati on Descript ion: mirtazap ine; Route:or al; refills: 0 Not Available Not Available Not Available levofloxa camacho 750 mg tablet TAKE ONE TABLET BY MOUTH ONCE DAILY AT 1100am FOR FOUR DAYS -- FINISH ALL MEDICINE -- 08/31 completed Not Available Not Available Not Available albuterol sulfate HFA 90 mcg/actua tion aerosol inhaler INHALE TWO PUFFS BY MOUTH FOUR TIMES DAILY NEEDED FOR SHORTNES S OF BREATH OR wheezing 08/31 completed Not Available Not Available Not Available lisinopri l 2.5 mg tablet Bedtime 08/31 completed Duration : 30 days;[place] quency: hs;Medic ation Descript ion: lisinopr il; Dosage:1 ; Route:or al; refills: 5; Quantity :30 tablet Not Available Not Available Not Available doxycycli ne hyclate 100 mg tablet TAKE ONE TABLET BY MOUTH TWICE DAILY FOR 7 DAYS -- FINISH ALL MEDICINE -- 08/31 completed Not Available Not Available Not Available olanzapin e 20 mg tablet TAKE ONE TABLET BY MOUTH EVERY DAY active Not Available Not Available No t Available amoxicill in 875 mg-potass ium clavulana te 125 mg tablet TAKE 1 TABLET BY MOUTH TWICE DAILY FOR 7 DAYS 08/31 completed Not Available Not Available Not Available Aspirin Low-Stren gth 81 mg tablet,de layed release Daily active Duration : 10 days;[place]rett quency: daily;Me dication Descript ion: aspirin; Dosage:1 ; Route:or al; refills: 0; Quantity :30 tablet Not Available Not Available Not Available azithromy camacho 500 mg tablet TAKE 1 TABLET BY MOUTH ONCE DAILY START ON DAY 2 OF THERAPY 08/31 completed Not Available Not Available Not Available Budeprion SR 150 mg tablet, sustained release 08/31 completed Medicati on Descript ion: bupropio n; Route:or al; refills: 0 Not Available Not Available Not Available duloxetin e 60 mg capsule,d elayed release TAKE ONE CAPSULE BY MOUTH EVERY DAY active Not Available Not Available No t Available fentanyl 12 mcg/hr transderm al patch 08/31 completed Medicati on Descript ion: fentanyl ; Route:tr ansderma l; refills: 0 Not Available Not Available Not Available carvedilo l 08/31 completed Medicati on Descript ion: carvedil ol; Route:or al; refills: 0 Not Available Not Available Not Available Stiolto Respimat 2.5 mcg-2.5 mcg/actua tion solution for inhalatio n INHALE TWO PUFFS BY MOUTH EVERY DAY active Not Available Not Available No t Available Entresto 24 mg-26 mg tablet TAKE ONE TABLET BY MOUTH TWICE DAILY active Not Available Not Available No t Available Vitals Date Recorded Body weight Body mass index (BMI) Body height Body temperature Systolic And Diastolic Provider Name and Address Organization Details Last Updated DateTime 08/31/2024 65134.86 g 15.8 kg/m2 187.96 cm 98 [degF] 114/62 mm[Hg] Ezio Mcduffie [facility] 15:06:39 Social History None recorded. Functional Status None recorded. Mental Status None recorded. Family History Relationship Description Onset Age of this Age Resolved Age Notes LastModified by Organization Details LastModified Time Father Complication of anesthesia [email or web address] Not available 08/31 15:11:43 Father Malignant neoplastic disease LUNG [email or web address] Not available 2024 15:12:21 Father Heart disease [email or web address] Not available 2024 15:12:40 Father Hypertensive disorder [email or web address] Not available 2024 15:13:03 Mother Complication of anesthesia [email or web address] Not available 08/31 15:11:43 Mother Malignant neoplastic disease LUNG [email or web address] Not available 2024 15:12:21 Mother Heart disease [email or web address] Not available 2024 15:12:41 Mother Hypertensive disorder [email or web address] Not available 2024 15:13:03 Brother Malignant neoplastic disease [email or web address] Not available 2024 15:12:21 Brother Heart disease Not available 2024 15:12:41 Brother Hypertensive disorder [email or web address] Not available 2024 15:13:03 Medical History Condition Response Anxiety Disorder Y Heart Problems Y Arthritis Y Migraines Y Depression Y Past Encounters Encounter ID Performer Location Encounter Start Date Encounter Closed Date Diagnosis/Indication Diagnosis SNOMED-CT Code Diagnosis ICD10 Code Diagnosis IMO Codes Diagnosis Note [id number] MD [facility] [address] [place] [address] 08/31/2024 14:30:17 08/31/2024 16:10:53 Head and neck swelling 318355689 R22.0 possible cyst vs lipoma on scalp seen on 2020 MRI at [facility] Chronic hoarseness 95113 21374 105 R49.0 Dysphagia 63318333 R13.1 0 Health Concerns Section Related Observation LastModified by Organization Detai ls LastModified Time None Recorded Concern Status LastModified by Organization Details LastModified Time None Recorded Advance Directives Directive None Recorded Payers Insurance Date Sequence Insurance Name Policy Number Policy Saab Covered Member ID Saab Member ID Guarantor Name 09/07/2024 1 [employer] (MEDICARE REPLACEMENT/AD VANTAGE - HMO) Radu Sharif [place] [id number] Radu Chante [place] 08/31/2024 1 [place]MEDICARE REPLACEMENT HMO) [id number] Radu Turk [id number] Radu Turk Notes Date Note Type Note Provider Name and Address Organization Details Recorded Time 08/31/2024 text/html ROS as noted in the HPI Radu comes in today for a consult of his scalp Lesion at the referral of Dr. Thony Rodrigues- MRI from 2020 showed a small spot on his hairline- susoected lipoma- hx of shingles in his eyes- receiving botox to help with the shingles- difficulty swallowing and chronic hoarseness- hx of smoking for 48 years SERA PHAN MD [address] [place] [address], [phone], [facility] 08/31/2024 17:23:33
--- OUTSIDE RECORDS SUMMARY | 2025-05-07 19:20 | XMS_ITS | CCD ---
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
--- NOTE | 2025-05-07 19:27 | XR_ITS ---
PROCEDURE INFORMATION: Exam: XR Chest Exam date and time: 05/07/2025 7:36 PM Age: 64 years old Clinical indication: Pain; Shortness of breath; Other: Cp; Additional info: Cp SOA TECHNIQUE: Imaging protocol: Radiologic exam of the chest. Views: 1 view. COMPARISON: CR XR CHEST PORTABLE 12/12/2024 4:24 PM FINDINGS: Tubes, catheters and devices: EKG leads noted. Lungs: COPD. Pleural spaces: Unremarkable. No pleural effusion. No pneumothorax. Heart/Mediastinum: Unremarkable. No cardiomegaly. Bones/joints: Old bilateral rib fractures. Cervical spine hardware noted. IMPRESSION: COPD. No acute findings.
--- NOTE | 2025-05-07 19:32 | HMH.EDGENADL ---
Discharge Plan Disposition Patient Disposition: Xfer Other Condition: Good Prescriptions Prescriptions: No Action oxycodone-acetaminophen 7.5-325 mg tablet 1 tab PO TID duloxetine 60 mg capsule,delayed release(DR/EC) 60 mg PO BID 90 Days Qty: 180 3RF furosemide [Lasix] 20 mg tablet 20 mg PO DAILY Qty: 90 1RF ipratropium-albuterol 0.5 mg-3 mg(2.5 mg base)/3 mL solution for nebulization See Rx Instructions .ROUTE .COMPLEX Qty: 180 1RF Dose Instruction: USE 3 ML IN NEBULIZER INHALED FOUR TIMES A DAY NEEDED FOR SHORTNESS OF BREATH OR WHEEZING Rx Instructions: USE 3 ML IN NEBULIZER INHALED FOUR TIMES A DAY NEEDED FOR SHORTNESS OF BREATH OR WHEEZING sacubitril-valsartan [Entresto] 24-26 mg tablet 1 tab PO BID Qty: 60 5RF Stiolto Respimat 2.5-2.5 mcg/actuation mist See Rx Instructions .ROUTE .COMPLEX Qty: 12 0RF Dose Instruction: INHALE 2 PUFFS BY MOUTH ONCE DAILY Rx Instructions: INHALE 2 PUFFS BY MOUTH ONCE DAILY albuterol sulfate 90 mcg/actuation HFA aerosol inhaler 2 inh INHALATION QIDP PRN (Reason: Shortness Of Breath Or Wheezing) Patient Comments: INHALE TWO PUFFS BY MOUTH FOUR TIMES DAILY NEEDED FOR SHORTNESS OF BREATH OR wheezing carvedilol 3.125 mg tablet 3.125 mg PO BID gabapentin 600 mg tablet 600 mg PO TID Qty: 20 0RF Referrals Follow up/Referrals: Aldo Simmons APRN [Primary Care Provider, Family Practice] - See instructions Clinical Impressions Clinical Impression: Vertigo Print Language Print Language: Tamazight Discharge ED Provider: Kenneth Alonzo General Adult HPI <Vangie Loomis APRN - Last Filed: 05/07/25 21:49> General Chief complaint: Dizziness Stated complaint: Severe Dizziness, Headache, Neck Pain Time Seen by Provider: 05/07/25 19:22 History of Present Illness HPI narrative: patient is a 64-year-old male PMHx HFrEF, lung nodule, COPD, history of tobacco use, history of chronic respiratory failure, hypertension, hyperlipidemia, diastolic dysfunction, history of malnutrition who presents to the ED for complaints of 2 hours dizziness, headache, and feeling like the room is spinning. Patient reports over the past 3 days he has had mild intermittent left-sided chest pain. He reports he does follow with cardiology but has not seen them recently. Related Data Home Medications ?Medication ?Instructions ?Recorded ?Confirmed albuterol sulfate 90 mcg/actuation 2 inh inhalation QIDP PRN 11/05/23 05/07/25 aerosol inhaler Shortness Of Breath Or Wheezing oxycodone-acetaminophen 7.5 mg-325 1 tab PO TID 10/20/24 12/15/24 mg tablet carvedilol 3.125 mg tablet 3.125 mg PO BID 11/03/24 05/07/25 Previous Rx's ?Medication ?Instructions ?Recorded duloxetine 60 mg capsule,delayed 60 mg PO BID 90 days #180 caps 10/23/24 release furosemide 20 mg tablet (Lasix) 20 mg PO DAILY #90 tabs 02/15/25 ipratropium 0.5 mg-albuterol 3 mg See Rx Instructions .Route 02/17/25 (2.5 mg base)/3 mL nebulization .COMPLEX #180 mL soln gabapentin 600 mg tablet 600 mg PO TID #20 tabs 03/03/25 sacubitril 24 mg-valsartan 26 mg 1 tab PO BID #60 tabs 03/26/25 tablet (Entresto) tiotropium 2.5 mcg-olodaterol 2.5 See Rx Instructions .Route 04/09/25 mcg/actuation mist for inhalation .COMPLEX #12 grams (Stiolto Respimat) Allergies Allergy/AdvReac Type Severity Reaction Status Date / Time methocarbamol (From ROBAXIN) Allergy Unknown Shakiness Verified 12/15/24 10:50 pregabalin (From LYRICA) Allergy Unknown Shakiness Verified 12/15/24 10:50 methadone Allergy Difficulty Verified 12/15/24 10:50 Breathing ibuprofen AdvReac Cramping Verified 12/15/24 10:50 of the Muscles [facility] <Vangie Loomis, MODEL TECHNICIAN - Last Filed: 05/07/25 21:49> [facility] Disclaimer: The information contained in this section may have been updated after the patient was seen, as this information can be updated by other users. Medical History (Updated 05/08/25 @ 00:27 by Kenneth Alonzo DO) (HFpEF) heart failure with preserved ejection fraction Esophageal thickening Solid nodule of lung greater than 8 mm in diameter COPD mixed type Nodule of left lung SIRS (systemic inflammatory response syndrome) Acute and chronic respiratory failure with hypoxia Postherpetic trigeminal neuralgia Encounter for screening for malignant neoplasm of lung in current smoker with 30 pack year history or greater Abnormal screening computed tomography (CT) of chest Nonischemic cardiomyopathy Diastolic dysfunction Elevated left ventricular end-diastolic pressure (LVEDP) Non-STEMI (non-ST elevated myocardial infarction) Emphysema/COPD Pneumonia due to gram-negative bacteria Low body mass index (BMI) COPD (chronic obstructive pulmonary disease) with acute bronchitis Upper respiratory infection Rhinovirus infection HLD (hyperlipidemia) Tobacco dependence syndrome Chest pain Cardiomyopathy Preoperative clearance Poisoning by opiate or related narcotic Atypical pneumonia Postherpetic neuralgia Left against medical advice HTN (hypertension) Elevated C-reactive protein CAP (community acquired pneumonia) COPD (chronic obstructive pulmonary disease) Pain, eye, right Herpes zoster ophthalmicus, right eye Eye pain Shingles Neuropathy Surgical History H/O cervical spine surgery H/O cardiac catheterization Family History Mother Lung cancer Family history of acute congestive heart failure Father Lung cancer Family history of acute congestive heart failure Social History Smoking Status: Current every day smoker tobacco type: cigarettes packs per day: 1 smoking status stop date: december 2021 second hand exposure: Yes alcohol intake: former substance use type: denies use current occupational status: disabled Travel in the last 8 weeks?: None household members: children housing: house marital status: current occupational exposures/hazards: No pets and animals: No caffeine: Yes Have you lived/traveled outside [place] in past 30 days?: No Contact w/someone who lives/traveled outside US past 30 days?: No Exposure to someone with infectious disease in past 14 days?: No Do you have a fever (greater than 100.4 F or 38 C)?: No Have you tested positive for COVID-19?: No Exposed to someone with COVID-19 in past 14 days?: No Do you have a sore throat?: No Do you have a cough?: No Do you have any weakness?: No Do you have any diarrhea?: No Are you experiencing any unusual bleeding?: No Do you have any muscle aches/pain?: No Do you have any abdominal pain?: No Are you experiencing loss of taste or smell?: No Other Medical History Have you received the Flu Vaccine for this season: No Have you received the Pneumonia Vaccine: Yes <Vangie Loomis APRN - Last Filed: 05/07/25 21:49> ROS Obtained: Yes Systems reviewed as appropriate & no additional complaints except as documented Physical Exam <Vangie Loomis APRN - Last Filed: 05/07/25 21:49> General General appearance: alert Head Head exam: atraumatic Eye Eye exam: Present PERRL and EOMI; Absent discharge, nystagmus or periorbital tenderness Chest Chest inspection: Present symmetric chest wall rise; Absent tenderness Respiratory Respiratory exam: Present normal lung sounds bilaterally Cardiovascular Cardiovascular exam: Present regular rate Abdominal Exam Abdominal exam: Present soft; Absent tenderness Neurological Exam Neurological exam: Present alert and oriented X3 Skin Skin exam: Present dry Medical Decision Making <Vangie Loomis APRN - Last Filed: 05/07/25 21:49> Medical Records Screening: Per USPSTF and CDC recommendations, given the prevalence of disease in our region, it is our hospital?s policy to screen for HIV and viral Hepatitis for all patients aged 18 and over and those with ongoing risk factors. Marck Inquiry Pt receiving controlled substance: No Vital Signs: 05/07/25 19:10 05/07/25 19:30 05/07/25 19:45 Temperature 98.1 F Temperature Source Oral Pulse Rate 62 63 Pulse Rate [Orthostatic Lying Right Radial] Pulse Rate [Orthostatic Sitting Right Radial] Pulse Rate [Orthostatic Standing Right Radial] Pulse Rate [Right] 88 Respiratory Rate 22 22 19 Blood Pressure 97/57 L 100/66 L Blood Pressure [Orthostatic Lying Right Arm] Blood Pressure [Orthostatic Sitting Right Arm] Blood Pressure [Orthostatic Standing Right Arm] Blood Pressure [Right Arm] 97/60 L Blood Pressure Mean [Right Arm] 72 Blood Pressure Source [Right Arm] Automatic Cuff 02 Sat by Pulse Oximetry 90 L 95 95 Oxygen Delivery Method Room Air 05/07/25 19:56 05/07/25 19:59 05/07/25 20:02 Temperature Temperature Source Pulse Rate 61 75 53 L Pulse Rate [Orthostatic Lying Right Radial] Pulse Rate [Orthostatic Sitting Right Radial] Pulse Rate [Orthostatic Standing Right Radial] Pulse Rate [Right] Respiratory Rate 20 22 22 Blood Pressure 104/57 L 88/58 L 112/63 Blood Pressure [Orthostatic Lying Right Arm] Blood Pressure [Orthostatic Sitting Right Arm] Blood Pressure [Orthostatic Standing Right Arm] Blood Pressure [Right Arm] Blood Pressure Mean [Right Arm] Blood Pressure Source [Right Arm] 02 Sat by Pulse Oximetry 95 95 95 Oxygen Delivery Method 05/07/25 20:04 05/07/25 20:15 05/07/25 20:30 Temperature Temperature Source Pulse Rate 60 55 L Pulse Rate [Orthostatic Lying Right Radial] 60 Pulse Rate [Orthostatic Sitting Right Radial] 66 Pulse Rate [Orthostatic Standing Right Radial] 80 Pulse Rate [Right] Respiratory Rate 19 24 Blood Pressure 105/60 L 89/59 L Blood Pressure [Orthostatic Lying Right Arm] 104/57 L Blood Pressure [Orthostatic Sitting Right Arm] 112/63 Blood Pressure [Orthostatic Standing Right Arm] 88/58 L Blood Pressure [Right Arm] Blood Pressure Mean [Right Arm] Blood Pressure Source [Right Arm] 02 Sat by Pulse Oximetry 95 95 Oxygen Delivery Method Lab Data Lab Results 05/07/25 19:33: WBC 7.7, RBC 3.79 L, Hgb 10.6 L, Hct 33.6 L, MCV 88.7, MCH 28.0, MCHC 31.5 L, RDW 16.6, Plt Count 380, MPV 9.3, Neut % (Auto) 60.6, Lymph % (Auto) 24.1, [place] % (Auto) 9.6 H, Eos % (Auto) 4.5, Baso % (Auto) 0.9, Neut # (Auto) 4.7, Lymph # (Auto) 1.9, [place] # (Auto) 0.7, Eos # (Auto) 0.4, Baso # (Auto) 0.1, PT 11.1, INR 1.00, APTT 20.4 L, Sodium 131 L, Potassium 4.0, Chloride 98, Carbon Dioxide 28, Anion Gap 9.0, BUN 12, Creatinine 0.60 L, Estimated GFR 135, Est GFR ( Amer) 163, Glucose 141 H, Calcium 9.1, Total Bilirubin 0.6, AST 26, ALT 12, Alkaline Phosphatase 62, Troponin I < 0.01, NT-Pro-B Natriuret Pep 92.3, Total Protein 7.4, Albumin 4.1, Globulin 3.3 H, Albumin/Globulin Ratio 1.2, Plasma/Serum Alcohol < 10, HCV Ab YOCASTA w/Rflx PCR Qn Negative, HIV Ag/Ab Combo Qual Negative 05/07/25 22:38: Troponin I < 0.01 05/07/25 23:10: Urine Color Yellow, Urine Appearance Clear, Urine pH 7.0, Ur Specific [place] 1.010, Urine Protein Negative, Urine Glucose (UA) Negative, Urine Ketones Negative, Urine Blood Negative, Urine Nitrate Negative, Urine Bilirubin Negative, Urine Urobilinogen 1.0, Ur Leukocyte Esterase 1+ A, Urine RBC 3-5, Urine WBC 5-10, Ur Squamous Epith Cells 3-5, Urine Bacteria 2+, Urine Opiates Screen Negative, Urine Methadone Screen Negative, Ur Barbituates Screen Negative, Ur Phencyclidine Scrn Negative, Ur Amphetamines Screen Negative, U Benzodiazepines Scrn Negative, Urine Cocaine Screen Negative, U Marijuana (THC) Screen Negative 05/07/25 19:33 05/07/25 19:33 Orders (Tests/Meds): ED MEDICATIONS Generic Name Dose Route Start Last Admin Trade Name Freq PRN Reason Stop Dose Admin Sodium Chloride 10 ml 05/07/25 21:56 05/07/25 21:57 Sodium Chloride 0.9% 10ml Syr (Rad Only) IV 06/06/25 21:55 10 ml NEEDED PRN Administration Maintain IV Site Discontinued Medications Generic Name Dose Route Start Last Admin Trade Name Freq PRN Reason Stop Dose Admin Aspirin 325 mg 05/08/25 00:10 Aspirin 325mg Tablet PO 05/08/25 00:11 ONCE ONE Sodium Chloride 1,000 mls @ 999 mls/hr 05/07/25 20:41 05/07/25 22:49 Sod Chlor 0.9% 1000ml Bag IV 05/07/25 21:41 Infused .Q1H1M ONE Infusion Iopamidol 80 ml 05/07/25 21:56 05/07/25 21:57 Iopamidol-370 (76%);100ml Bottle IV 05/07/25 21:57 80 ml ONCE ONE Administration Meclizine HCl 25 mg 05/07/25 21:07 05/07/25 21:17 Meclizine 25mg Tablet PO 05/07/25 21:08 25 mg ONCE ONE Administration Oxycodone/Acetaminophen 1 each 05/07/25 21:27 05/07/25 21:36 Oxycodone 10mg W/Apap 325mg Tablet PO 05/07/25 21:28 1 each ONCE ONE Administration Sodium Chloride 50 ml 05/07/25 21:56 05/07/25 21:56 0.9 % Sodium Chloride 50 Ml Vial IV 05/07/25 21:57 50 ml ONCE ONE Administration ORDERS Category Date Time Status CT angio head Stat Cat Scan 05/07/25 21:[address] angio neck Stat Cat Scan 05/07/25 21:[address] cervical spine wo con Stat Cat Scan 05/07/25 21:[address] head/brain wo con Stat Cat Scan 05/07/25 21:27 Completed CXR --portable [XR chest portable] Stat Exams 05/07/25 19:27 Completed BNP [NT Pro Brain Natriuretic Pep.] Stat Lab 05/07/25 19:33 Completed CBC w/Auto Diff [Complete Blood Count Auto Diff] Stat Lab 05/07/25 19:33 Completed CMP [Comprehensive Metabolic Panel] Stat Lab 05/07/25 19:33 Completed Ethyl Alcohol Stat Lab 05/07/25 19:33 Completed HIV Combo Stat Lab 05/07/25 19:33 Completed Hepatitis C Ab Qual. W/ RFX Stat Lab 05/07/25 19:33 Completed PT/PTT Stat Lab 05/07/25 19:33 Completed Trop I [Troponin I] Stat Lab 05/07/25 19:33 Completed Troponin I Q3H Lab 05/07/25 22:38 Completed Troponin I Q3H Lab 05/08/25 01:30 Ordered UDS [Drug Screen,Urine] Stat Lab 05/07/25 23:10 Completed Urinalysis and Microscopic Stat Lab 05/07/25 23:10 Completed Urine Culture Stat Micro 05/07/25 23:10 Received Medical Decision Narrative: In summary, patient is a 64-year-old male PMHx HFrEF, lung nodule, COPD, history of tobacco use, history of chronic respiratory failure, hypertension, hyperlipidemia, diastolic dysfunction, history of malnutrition, chronic neck pain and back pain, who presents to the ED for complaints of 2 hours dizziness, headache, and feeling like the room is spinning. Patient reports over the past 3 days he has had mild intermittent left-sided chest pain. He reports he does follow with cardiology but has not seen them recently. He denies any recent falls or trauma, denies drug use. Patient states he has a history of chronic back and neck pain, he frequently gets headaches. Patient states he became increasingly dizzy when when transferring from the wheelchair to the ED stretcher. Upon initial evaluation patient is alert, oriented and cooperative. Systolic blood pressure is 96, patient is not tachycardic. Patient appears malnourished. PERRLA. No nystagmus. NIH 0. No difficulty with speech. Differential diagnosis include cardiac arrhythmia, ACS, dissection, pneumonia, infectious process, ICH, mass, among others. I discussed with patient and daughter that we will proceed with workup, including EKG, labs and chest x-ray. Formal read of the chest x-ray COPD, no acute findings. CBC unremarkable for any leukocytosis, stable H&H. CMP unremarkable for any actionable abnormalities. Serum alcohol < 10. First troponin < 0.01. BNP 92.3. Orthostatics vitals obtained, patient appears to be orthostatic. IV fluids administered. Patient states it is time for his evening Percocet dose, will administer in the ED. Upon reassessment, patient's condition has remained the same, he states that his neck pain feels a bit worse than baseline. So far, workup unremarkable for any cause of dizziness. Will proceed with CTAs. Care transferred to attending, Dr. Alonzo. <Kenneth Alonzo, - Last Filed: 05/08/25 00:27> Medical Records Medical records reviewed: Yes I reviewed the patient's medical records. Vital Signs: 05/07/25 19:10 05/07/25 19:30 05/07/25 19:45 Temperature 98.1 F Temperature Source Oral Pulse Rate 62 63 Pulse Rate [Orthostatic Lying Right Radial] Pulse Rate [Orthostatic Sitting Right Radial] Pulse Rate [Orthostatic Standing Right Radial] Pulse Rate [Right] 88 Respiratory Rate Blood Pressure 97/57 L 100/66 L Blood Pressure [Orthostatic Lying Right Arm] Blood Pressure [Orthostatic Sitting Right Arm] Blood Pressure [Orthostatic Standing Right Arm] Blood Pressure [Right Arm] 97/60 L Blood Pressure Mean [Right Arm] 72 Blood Pressure Source [Right Arm] Automatic Cuff 02 Sat by Pulse Oximetry 90 L 95 95 Oxygen Delivery Method Room Air 05/07/25 19:56 05/07/25 19:59 05/07/25 20:02 Temperature Temperature Source Pulse Rate 61 75 53 L Pulse Rate [Orthostatic Lying Right Radial] Pulse Rate [Orthostatic Sitting Right Radial] Pulse Rate [Orthostatic Standing Right Radial] Pulse Rate [Right] Respiratory Rate 20 22 22 Blood Pressure 104/57 L 88/58 L 112/63 Blood Pressure [Orthostatic Lying Right Arm] Blood Pressure [Orthostatic Sitting Right Arm] Blood Pressure [Orthostatic Standing Right Arm] Blood Pressure [Right Arm] Blood Pressure Mean [Right Arm] Blood Pressure Source [Right Arm] 02 Sat by Pulse Oximetry 95 95 95 Oxygen Delivery Method 05/07/25 20:04 05/07/25 20:15 05/07/25 20:30 Temperature Temperature Source Pulse Rate 60 55 L Pulse Rate [Orthostatic Lying Right Radial] 60 Pulse Rate [Orthostatic Sitting Right Radial] 66 Pulse Rate [Orthostatic Standing Right Radial] 80 Pulse Rate [Right] Respiratory Rate 19 24 Blood Pressure 105/60 L 89/59 L Blood Pressure [Orthostatic Lying Right Arm] 104/57 L Blood Pressure [Orthostatic Sitting Right Arm] 112/63 Blood Pressure [Orthostatic Standing Right Arm] 88/58 L Blood Pressure [Right Arm] Blood Pressure Mean [Right Arm] Blood Pressure Source [Right Arm] 02 Sat by Pulse Oximetry 95 95 Oxygen Delivery Method Lab Data Lab Results 05/07/25 19:33: WBC 7.7, RBC 3.79 L, Hgb 10.6 L, Hct 33.6 L, MCV 88.7, MCH 28.0, MCHC 31.5 L, RDW 16.6, Plt Count 380, MPV 9.3, Neut % (Auto) 60.6, Lymph % (Auto) 24.1, [place] % (Auto) 9.6 H, Eos % (Auto) 4.5, Baso % (Auto) 0.9, Neut # (Auto) 4.7, Lymph # (Auto) 1.9, [place] # (Auto) 0.7, Eos # (Auto) 0.4, Baso # (Auto) 0.1, PT 11.1, INR 1.00, APTT 20.4 L, Sodium 131 L, Potassium 4.0, Chloride 98, Carbon Dioxide 28, Anion Gap 9.0, BUN 12, Creatinine 0.60 L, Estimated GFR 135, Est GFR ( Amer) 163, Glucose 141 H, Calcium 9.1, Total Bilirubin 0.6, AST 26, ALT 12, Alkaline Phosphatase 62, Troponin I < 0.01, NT-Pro-B Natriuret Pep 92.3, Total Protein 7.4, Albumin 4.1, Globulin 3.3 H, Albumin/Globulin Ratio 1.2, Plasma/Serum Alcohol < 10, HCV Ab YOCASTA w/Rflx PCR Qn Negative, HIV Ag/Ab Combo Qual Negative 05/07/25 22:38: Troponin I < 0.01 05/07/25 23:10: Urine Color Yellow, Urine Appearance Clear, Urine pH 7.0, Ur Specific [place] 1.010, Urine Protein Negative, Urine Glucose (UA) Negative, Urine Ketones Negative, Urine Blood Negative, Urine Nitrate Negative, Urine Bilirubin Negative, Urine Urobilinogen 1.0, Ur Leukocyte Esterase 1+ A, Urine RBC 3-5, Urine WBC 5-10, Ur Squamous Epith Cells 3-5, Urine Bacteria 2+, Urine Opiates Screen Negative, Urine Methadone Screen Negative, Ur Barbituates Screen Negative, Ur Phencyclidine Scrn Negative, Ur Amphetamines Screen Negative, U Benzodiazepines Scrn Negative, Urine Cocaine Screen Negative, U Marijuana (THC) Screen Negative Orders (Tests/Meds): ED MEDICATIONS Generic Name Dose Route Start Last Admin Trade Name Freq PRN Reason Stop Dose Admin Sodium Chloride 10 ml 05/07/25 21:56 05/07/25 21:57 Sodium Chloride 0.9% 10ml Syr (Rad Only) IV 06/06/25 21:55 10 ml NEEDED PRN Administration Maintain IV Site Discontinued Medications Generic Name Dose Route Start Last Admin Trade Name Freq PRN Reason Stop Dose Admin Aspirin 325 mg 05/08/25 00:10 Aspirin 325mg Tablet PO 05/08/25 00:11 ONCE ONE Sodium Chloride 1,000 mls @ 999 mls/hr 05/07/25 20:41 05/07/25 22:49 Sod Chlor 0.9% 1000ml Bag IV 05/07/25 21:41 Infused .Q1H1M ONE Infusion Iopamidol 80 ml 05/07/25 21:56 05/07/25 21:57 Iopamidol-370 (76%);100ml Bottle IV 05/07/25 21:57 80 ml ONCE ONE Administration Meclizine HCl 25 mg 05/07/25 21:07 05/07/25 21:17 Meclizine 25mg Tablet PO 05/07/25 21:08 25 mg ONCE ONE Administration Oxycodone/Acetaminophen 1 each 05/07/25 21:27 05/07/25 21:36 Oxycodone 10mg W/Apap 325mg Tablet PO 05/07/25 21:28 1 each ONCE ONE Administration Sodium Chloride 50 ml 05/07/25 21:56 05/07/25 21:56 0.9 % Sodium Chloride 50 Ml Vial IV 05/07/25 21:57 50 ml ONCE ONE Administration ORDERS Category Date Time Status CT angio head Stat Cat Scan 05/07/25 21:[address] angio neck Stat Cat Scan 05/07/25 21:[address] cervical spine wo con Stat Cat Scan 05/07/25 21:[address] head/brain wo con Stat Cat Scan 05/07/25 21:27 Completed CXR --portable [XR chest portable] Stat Exams 05/07/25 19:27 Completed BNP [NT Pro Brain Natriuretic Pep.] Stat Lab 05/07/25 19:33 Completed CBC w/Auto Diff [Complete Blood Count Auto Diff] Stat Lab 05/07/25 19:33 Completed CMP [Comprehensive Metabolic Panel] Stat Lab 05/07/25 19:33 Completed Ethyl Alcohol Stat Lab 05/07/25 19:33 Completed HIV Combo Stat Lab 05/07/25 19:33 Completed Hepatitis C Ab Qual. W/ RFX Stat Lab 05/07/25 19:33 Completed PT/PTT Stat Lab 05/07/25 19:33 Completed Trop I [Troponin I] Stat Lab 05/07/25 19:33 Completed Troponin I Q3H Lab 05/07/25 22:38 Completed Troponin I Q3H Lab 05/08/25 01:30 Ordered UDS [Drug Screen,Urine] Stat Lab 05/07/25 23:10 Completed Urinalysis and Microscopic Stat Lab 05/07/25 23:10 Completed Urine Culture Stat Micro 05/07/25 23:10 Received Medical Decision Narrative: In summary, patient is a 64-year-old male PMHx HFrEF, lung nodule, COPD, history of tobacco use, history of chronic respiratory failure, hypertension, hyperlipidemia, diastolic dysfunction, history of malnutrition, chronic neck pain and back pain, who presents to the ED for complaints of 2 hours dizziness, headache, and feeling like the room is spinning. Patient reports over the past 3 days he has had mild intermittent left-sided chest pain. He reports he does follow with cardiology but has not seen them recently. He denies any recent falls or trauma, denies drug use. Patient states he has a history of chronic back and neck pain, he frequently gets headaches. Patient states he became increasingly dizzy when when transferring from the wheelchair to the ED stretcher. Upon initial evaluation patient is alert, oriented and cooperative. Systolic blood pressure is 96, patient is not tachycardic. Patient appears malnourished. PERRLA. No nystagmus. NIH 0. No difficulty with speech. Differential diagnosis include cardiac arrhythmia, ACS, dissection, pneumonia, infectious process, ICH, mass, among others. I discussed with patient and daughter that we will proceed with workup, including EKG, labs and chest x-ray. Formal read of the chest x-ray COPD, no acute findings. CBC unremarkable for any leukocytosis, stable H&H. CMP unremarkable for any actionable abnormalities. Serum alcohol < 10. First troponin < 0.01. BNP 92.3. Orthostatics vitals obtained, patient appears to be orthostatic. IV fluids administered. Patient states it is time for his evening Percocet dose, will administer in the ED. Upon reassessment, patient's condition has remained the same, he states that his neck pain feels a bit worse than baseline. So far, workup unremarkable for any cause of dizziness. Will proceed with CTAs. Care transferred to attending, Dr. Alonzo. I was consulted by the BRONSON, and we discussed the complexity of problems being addressed. I approved the treatment and management plan for this patient's care in the emergency department, thus performing a substantive portion of the medical decision making. Kenneth Alonzo, DO This is Dr. Alonzo. I did independently evaluate this patient and obtained collateral history. He tells me that around 2 PM this afternoon he was bending over to lift garbage out of the trash can when he began experiencing sudden onset severe vertigo. He states that his vertigo is worse with certain positions such as bending over at the waist and looking downwards. However, he also tells me that his vertigo is quite constant and it significantly worsens with movement. At the time of shift change patient CTAs were pending and I followed up on these. CTA showed no severe stenosis or occlusion. CT head showed no evidence of large intracranial hemorrhages on my independent read. I did attempt to ambulate the patient here in the emergency department he was incredibly unsteady on his feet and is considered a fall risk. Due to the fact that he is refractory to treatment with meclizine and has not demonstrated any evidence of improvement after several hours in the emergency department I do feel that he needs admission to the hospital for at least vestibular therapy and as well for further workup with MRI to definitively prove whether or not this is central vertigo. Therefore I ultimately had an interactive succussion with the neurology service at [facility] in [place]. Dr. Frost has agreed to accept the patient for transfer to their hospital. Patient was transferred by ambulance in stable condition. Critical Care <Vangie Loomis APRN - Last Filed: 05/07/25 21:49> Critical Care Time Critical Care Time: No
--- NOTE | 2025-05-07 19:42 | ECG_ITS ---
APPROVED REPORT Exam: Resting ECG HR:60 bpm ECG Measurements Heart Rate [address] 134 P 85 QRSd 90 QRS 83 QT 428 T 89 QTc 430 Conclusion Normal sinus rhythm Normal axis Normal intervals No STEMI Electronically signed by : Kenneth Alonzo, 05/08/2025 01:46:03
[2025-05-07 19:43] LABS: Hematocrit 33.6 % (42.0-52.0); Hemoglobin 10.6 g/dL (14.1-18.0); Immature Granulocytes % 0.3 %; Mean Corpuscular HGB Conc 31.5 g/dL (31.8-35.4); Mean Corpuscular Hemoglobin 28.0 pg (27.0-31.2); Mean Corpuscular Volume 88.7 fl (80-94); Nucleated Red Blood Cells % 0 %; Platelet Count 380 K/mm3 (142-424); Red Blood Count 3.79 M/mm3 (4.60-6.20); Red Cell Distribution Width-SD 54.4 fL; White Blood Count 7.7 K/mm3 (4.8-10.8)
[2025-05-07 19:55] LABS: Alanine Aminotransferase 12 U/L (12-78); Albumin Level 4.1 g/dl (3.5-5.0); Albumin/Globulin Ratio 1.2 (1.1-1.8); Alkaline Phosphatase 62 U/L (38-126); Anion Gap 9.0 mEq/L (5-15); Aspartate Amino Transferase 26 U/L (17-59); Bilirubin,Total 0.6 mg/dl (0.2-1.3); Blood Urea Nitrogen 12 mg/dl (9-20); Calcium 9.1 mg/dl (8.4-10.2); Carbon Dioxide 28 mmol/L (22.0-30.0); Chloride 98 mmol/L (98-107); Creatinine,Serum 0.60 mg/dl (0.66-1.25); Estimated Glomerular Filt Rate 135 ml/min (>60); GFR (African American) 163 ML/MIN (>60); Globulin 3.3 g/dL (1.3-3.2); Glucose 141 mg/dl (74-100); Potassium 4.0 mmoL/L (3.5-5.1); Sodium 131 mmol/L (136-145); Total Protein,Serum 7.4 g/dl (6.3-8.2)
[2025-05-07 20:07] LABS: Activated Partial Thrombo Time 20.4 seconds (22.8-30.6); INR 1.00 (0.9-1.1); NT Pro Brain Natriuretic Pep. 92.3 pg/mL (0-125); Prothrombin Time 11.1 seconds (10.1-12.5); Troponin I < 0.01 ng/ml (0.00-0.034)
[2025-05-07 21:16] LABS: Hepatitis C Ab Qual. W/ RFX NEGATIVE (Negative)
[2025-05-07] MEDS: 0.9 % SODIUM CHLORIDE 1000ML 1,000 ML 999 ML IV (21:16)
[2025-05-07] MEDS: MECLIZINE 25MG TABLET 25 MG PO (21:17)
--- NOTE | 2025-05-07 21:27 | CT_ITS ---
PROCEDURE INFORMATION: Exam: CTA Head With Contrast, Arteriography Exam date and time: 05/07/2025 9:55 PM Age: 64 years old Clinical indication: Pain; Dizziness and giddiness and headache; Additional info: Headache dizzy TECHNIQUE: Imaging protocol: Computed tomographic angiography of the head with contrast. Exam focused on the arteries. 3D rendering (Not supervised by radiologist): MIP and/or 3D reconstructed images were created by the technologist. Radiation optimization: All CT scans at this facility use at least one of these dose optimization techniques: automated exposure control; mA and/or kV adjustment per patient size (includes targeted exams where dose is matched to clinical indication); or iterative reconstruction. Contrast material: ISO 370; Contrast volume: 80 ml; Contrast route: INTRAVENOUS (IV); COMPARISON: CT HEAD/BRAIN WO CON 05/07/2025 9:51 PM FINDINGS: ANTERIOR CIRCULATION: Right internal carotid artery: Minimal atherosclerotic narrowing of the intracranial segment without flow-limiting stenosis. No aneurysm. Right middle cerebral artery: No occlusion or significant stenosis. No aneurysm. Right anterior cerebral artery: No occlusion or significant stenosis. No aneurysm. Left internal carotid artery: Minimal atherosclerotic narrowing of the intracranial segment without flow-limiting stenosis. No aneurysm. Left middle cerebral artery: No occlusion or significant stenosis. No aneurysm. Left anterior cerebral artery: No occlusion or significant stenosis. No aneurysm. POSTERIOR CIRCULATION: Right vertebral artery: No occlusion or significant stenosis. No aneurysm. Left vertebral artery: No occlusion or significant stenosis. No aneurysm. Basilar artery: No occlusion or significant stenosis. No aneurysm. Right posterior cerebral artery: No occlusion or significant stenosis. No aneurysm. Left posterior cerebral artery: No occlusion or significant stenosis. No aneurysm. Brain: No definite mass, mass effect, or midline shift. Cerebral ventricles: No ventriculomegaly. Bones/joints: Unremarkable. No acute fracture. Soft tissues: Unremarkable. IMPRESSION: No large vessel occlusion or flow-limiting stenosis. PROCEDURE INFORMATION: Exam: CTA Neck With Contrast Exam date and time: 05/07/2025 9:55 PM Age: 64 years old Clinical indication: Pain; Dizziness and giddiness and headache; Additional info: Headache dizzy TECHNIQUE: Imaging protocol: Computed tomographic angiography of the neck with contrast. Exam focused on the cervical segments of the vasculature. 3D rendering (Not supervised by radiologist): MIP and/or 3D reconstructed images were created by the technologist. Radiation optimization: All CT scans at this facility use at least one of these dose optimization techniques: automated exposure control; mA and/or kV adjustment per patient size (includes targeted exams where dose is matched to clinical indication); or iterative reconstruction. Contrast material: ISOVUE; Contrast volume: 80 ml; Contrast route: INTRAVENOUS (IV); COMPARISON: CT CERVICAL SPINE WO CON 05/07/2025 9:53 PM FINDINGS: Right common carotid artery: No stenosis. No dissection or occlusion. Right internal carotid artery: Minimal atherosclerosis of the proximal cervical segment without significant stenosis. No dissection or occlusion. Right external carotid artery: Minimal atherosclerosis proximally without significant stenosis. Left common carotid artery: Minimal atherosclerotic narrowing of the mid segment without flow-limiting stenosis. No dissection or occlusion. Left internal carotid artery: No stenosis of the extracranial segment. No dissection or occlusion. Left external carotid artery: No occlusion or stenosis of the origin. Right vertebral artery: Mild atherosclerotic narrowing of the proximal V1 segment without flow-limiting stenosis. No dissection or occlusion. Left vertebral artery: No stenosis. No dissection or occlusion. Soft tissues: Unremarkable. Bones/joints: No acute findings. IMPRESSION: No flow-limiting stenosis or occlusion. No dissection. REFERENCES: NASCET CRITERIA. The degree of stenosis in the cervical segment of the internal carotid artery is based on NASCET criteria. Normal is no stenosis. Mild is less than 50% stenosis. Moderate is 50-69% stenosis. Severe is 70% to 99% stenosis. Total occlusion is no detectable patent lumen.
--- NOTE | 2025-05-07 21:27 | CT_ITS ---
PROCEDURE INFORMATION: Exam: CT Head Without Contrast Exam date and time: 05/07/2025 9:51 PM Age: 64 years old Clinical indication: Dizziness and other: Headache; Additional info: Headache dizzy TECHNIQUE: Imaging protocol: Computed tomography of the head without contrast. Radiation optimization: All CT scans at this facility use at least one of these dose optimization techniques: automated exposure control; mA and/or kV adjustment per patient size (includes targeted exams where dose is matched to clinical indication); or iterative reconstruction. COMPARISON: CT HEAD/BRAIN WO CON 09/06/2024 5:47 PM FINDINGS: Brain: No acute intracranial hemorrhage, midline shift, or mass effect. Diffuse brain parenchymal volume loss. Cerebral ventricles: No ventriculomegaly. Paranasal sinuses: Minimal scattered mucosal thickening. Mastoid air cells: Visualized mastoid air cells are well aerated. Bones: Unremarkable. No acute fracture. Soft tissues: Unremarkable. IMPRESSION: No acute intracranial findings.
--- NOTE | 2025-05-07 21:27 | CT_ITS ---
PROCEDURE INFORMATION: Exam: CT Cervical Spine Without Contrast Exam date and time: 05/07/2025 9:53 PM Age: 64 years old Clinical indication: Other: Headache, dizziness; Neck pain; Additional info: Chronic pain TECHNIQUE: Imaging protocol: Computed tomography of the cervical spine without contrast. Radiation optimization: All CT scans at this facility use at least one of these dose optimization techniques: automated exposure control; mA and/or kV adjustment per patient size (includes targeted exams where dose is matched to clinical indication); or iterative reconstruction. COMPARISON: CT CERVICAL SPINE WO CON 09/06/2024 5:47 PM FINDINGS: Bones: Postsurgical changes of C4-C7 anterior cervical discectomy and fusion. Grossly intact fusion hardware. No acute fracture. Mild right lateral tilt. Reversal of normal cervical lordosis. Grade 1 anterolisthesis C4 on C5 and C7 on T1. Maintained craniocervical junction. Multilevel degenerative changes. Varying degrees of neural foraminal narrowing. No severe spinal canal stenosis. Lungs: Emphysema. Stable left apical pleural-parenchymal scarring. Soft tissues: Unremarkable. IMPRESSION: No acute osseous findings.
[2025-05-07] MEDS: OXYCODONE 10MG W/APAP 325MG TABLET 1 EACH PO (21:36)
[2025-05-07] MEDS: 0.9 % SODIUM CHLORIDE 50 ML VIAL IV (21:56)
[2025-05-07] MEDS: IOPAMIDOL-370 (76%);100ML BOTTLE 80 ML IV (21:57)
[2025-05-07] MEDS: SODIUM CHLORIDE 0.9% 10ML SYR (RAD ONLY) 10 ML IV (21:57)
--- NOTE | 2025-05-07 22:48 | PC.NURSE ---
pt resting quietly while sitting up in bed. Family at bedside, no needs at this time.
[2025-05-07 23:08] LABS: Troponin I < 0.01 ng/ml (0.00-0.034)
[2025-05-07 23:21] LABS: Microscopic, Urine URINE MICROSCOPIC (MICROSCOPIC)
[2025-05-07 23:30] LABS: Bilirubin,Urine Negative (Negative); Color,Urine YELLOW (Yellow); Glucose,Urine (UA) Negative (Negative); Ketones,Urine Negative (Negative); Leukocyte Esterase,Urine 1+ (Negative); PH,Urine 7.0 (5.0-8.5); Protein,Urine Negative (Negative); Specific Gravity, Urine 1.010 (1.005-1.030); Urobilinogen,Urine 1.0 EU/dl (0.2)
[2025-05-07 23:41] LABS: Amphetamine/Metha Screen,Urine Negative ng/ml (<1000)
[2025-05-07 23:42] LABS: Barbiturates Screen,Urine Negative ng/ml (<200); Benzodiazepines Screen,Urine Negative ng/ml (<200)
[2025-05-07 23:44] LABS: Methadone Screen,Urine Negative ng/ml (<300)
[2025-05-07 23:45] LABS: Opiate Screen,Urine Negative ng/ml (<300); Phencyclidine Screen,Urine Negative ng/ml (<25)
[2025-05-07 23:48] LABS: Bacteria,Urine 2+ /lpf
--- NOTE | 2025-05-08 00:07 | PC.NURSE ---
Dr Alonzo s/w Stroke Navigator with [facility]
[2025-05-08] MEDS: ASPIRIN 325MG TABLET 325 MG PO (00:29)
--- NOTE | 2025-05-08 00:42 | PC.NURSE ---
Gave report to Ghazala @ [facility]- [id number]
--- NOTE | 2025-05-08 00:42 | PC.NURSE ---
[facility] notified of xfer
[2025-05-08 01:09] VITALS: BP 112/53; PULSE 52; RESP 17; TEMP 36.7; O2SAT 93
== END 2025-05-08 01:11 | disposition other institution (70) ==
PROVIDERS: Nurse Practitioner; Emergency Provider Student in an Organized Health Care Education/Training Program; PCP Nurse Practitioner Family
DX: R42 Dizziness and giddiness (principal); R26.2 Difficulty in walking, not elsewhere classified; R51.9 Headache, unspecified; E87.1 Hypo-osmolality and hyponatremia; J44.9 Chronic obstructive pulmonary disease, unspecified; I11.0 Hypertensive heart disease with heart failure; I50.30 Unspecified diastolic (congestive) heart failure; E78.5 Hyperlipidemia, unspecified; F17.210 Nicotine dependence, cigarettes, uncomplicated
CPT/HCPCS: 70450; 70496; 70498; 71045; 72125; 80053; 80307; 80320; 81001; 83880; 84484; 85025; 85610; 85730; 86803; 87086; 87389; 93005; 96360; 99285; J7030; Q9967

== ENCOUNTER 2025-05-25 12:52 | Inpatient (IN) | payer MEDICARE, MEDICAID, SELFPAY ==
[2025-05-25] VITALS (25 sets, daily range): BP systolic 69–140; BP diastolic 38–71; PULSE 54–79; RESP 16–28; TEMP 36.4–36.9; O2SAT 85–97; BMI 18.3
--- NOTE | 2025-05-25 13:16 | HMH.EDGENADL ---
Discharge Plan Disposition Patient Disposition: Admitted Clinical Impressions Clinical Impression: Pneumonia, Hypotension, Hypoxia, Fatigue Discharge ED Provider: Rodolfo Estrada Adult [facility] General Chief complaint: Shortness of Breath/Dyspnea Stated complaint: SOA weakness poss. dehydration Time Seen by Provider: 05/25/25 13:16 Mode of Arrival: Ambulatory Source of Information: Patient Description of Symptoms (Recalled from ER Triage Doc. by RN): Patient states he has been feeling short of breath and his lungs are full of fluid and he thinks that its because his doctor increased his Buspar to 10 mg BID from 5 mg BID. Patient states this was 2 days ago. patient wears 2-4L NC at home all the time. Related Data Home Medications ?Medication ?Instructions ?Recorded ?Confirmed albuterol sulfate 90 mcg/actuation 2 inh inhalation QIDP PRN 11/05/23 05/21/25 aerosol inhaler Shortness Of Breath Or Wheezing oxycodone-acetaminophen 7.5 mg-325 1 tab PO TID 10/20/24 05/21/25 mg tablet carvedilol 3.125 mg tablet 3.125 mg PO BID 11/03/24 05/21/25 atorvastatin 20 mg tablet 20 mg PO DAILY 05/21/25 05/21/25 buspirone 5 mg tablet 5 mg PO BID 05/21/25 05/21/25 Previous Rx's ?Medication ?Instructions ?Recorded duloxetine 60 mg capsule,delayed 60 mg PO BID 90 days #180 caps 10/23/24 release furosemide 20 mg tablet (Lasix) 20 mg PO DAILY #90 tabs 02/15/25 ipratropium 0.5 mg-albuterol 3 mg See Rx Instructions .Route 02/17/25 (2.5 mg base)/3 mL nebulization .COMPLEX #180 mL soln gabapentin 600 mg tablet 600 mg PO TID #20 tabs 03/03/25 tiotropium 2.5 mcg-olodaterol 2.5 See Rx Instructions .Route 04/09/25 mcg/actuation mist for inhalation .COMPLEX #12 grams (Stiolto Respimat) buspirone 10 mg tablet 10 mg PO BID #60 tabs 05/21/25 Allergies Allergy/AdvReac Type Severity Reaction Status Date / Time methocarbamol (From ROBAXIN) Allergy Unknown Shakiness Verified 05/21/25 10:41 pregabalin (From LYRICA) Allergy Unknown Shakiness Verified 05/21/25 10:41 methadone Allergy Difficulty Verified 05/21/25 10:41 Breathing ibuprofen AdvReac Cramping Verified 05/21/25 10:41 of the Muscles PFSH PFS Disclaimer: The information contained in this section may have been updated after the patient was seen, as this information can be updated by other users. Medical History (Updated 05/25/25 @ 16:46 by Kota Arrington MD) Prediabetes (HFpEF) heart failure with preserved ejection fraction Esophageal thickening Solid nodule of lung greater than 8 mm in diameter COPD mixed type Nodule of left lung SIRS (systemic inflammatory response syndrome) Acute and chronic respiratory failure with hypoxia Postherpetic trigeminal neuralgia Encounter for screening for malignant neoplasm of lung in current smoker with 30 pack year history or greater Abnormal screening computed tomography (CT) of chest Nonischemic cardiomyopathy Diastolic dysfunction Elevated left ventricular end-diastolic pressure (LVEDP) Non-STEMI (non-ST elevated myocardial infarction) Emphysema/COPD Pneumonia due to gram-negative bacteria Low body mass index (BMI) COPD (chronic obstructive pulmonary disease) with acute bronchitis Upper respiratory infection Rhinovirus infection HLD (hyperlipidemia) Tobacco dependence syndrome Chest pain Cardiomyopathy Preoperative clearance Poisoning by opiate or related narcotic Atypical pneumonia Postherpetic neuralgia Left against medical advice HTN (hypertension) Elevated C-reactive protein CAP (community acquired pneumonia) COPD (chronic obstructive pulmonary disease) Pain, eye, right Herpes zoster ophthalmicus, right eye Eye pain Shingles Neuropathy Surgical History H/O cervical spine surgery H/O cardiac catheterization Family History Mother Lung cancer Family history of acute congestive heart failure Father Lung cancer Family history of acute congestive heart failure Social History Smoking Status: Current every day smoker tobacco type: cigarettes packs per day: 1 smoking status stop date: december 2021 second hand exposure: Yes alcohol intake: former substance use type: denies use current occupational status: disabled Travel in the last 8 weeks?: None household members: children housing: house marital status: current occupational exposures/hazards: No pets and animals: No caffeine: Yes Have you lived/traveled outside [place] in past 30 days?: No Contact w/someone who lives/traveled outside [place] past 30 days?: No Exposure to someone with infectious disease in past 14 days?: No Do you have a fever (greater than 100.4 F or 38 C)?: No Have you tested positive for COVID-19?: No Exposed to someone with COVID-19 in past 14 days?: No Do you have a sore throat?: No Do you have a cough?: No Do you have any weakness?: No Do you have any diarrhea?: No Are you experiencing any unusual bleeding?: No Do you have any muscle aches/pain?: No Do you have any abdominal pain?: No Are you experiencing loss of taste or smell?: No Other Medical History Have you received the Flu Vaccine for this season: No Have you received the Pneumonia Vaccine: No Medical Decision Making Medical Records Screening: Per USPSTF and CDC recommendations, given the prevalence of disease in our region, it is our hospital?s policy to screen for HIV and viral Hepatitis for all patients aged 18 and over and those with ongoing risk factors. Vital Signs: 05/25/25 13:02 05/25/25 13:50 05/25/25 13:52 Temperature 98.5 F Temperature Source Oral Pulse Rate 78 Pulse Rate [Right Brachial] 79 Respiratory Rate 16 24 18 Blood Pressure 69/44 L 77/38 L Blood Pressure [Right Arm] 87/47 L Blood Pressure Mean 52 Blood Pressure Mean [Right Arm] 60 Blood Pressure Source Automatic Cuff Blood Pressure Source [Right Arm] Automatic Cuff Blood Pressure Position Sitting Blood Pressure Position [Right Arm] Sitting 02 Sat by Pulse Oximetry 85 L 93 L 96 Oxygen Delivery Method Nasal Cannula Oxygen Flow Rate (LPM) 4 2 05/25/25 13:57 05/25/25 14:09 05/25/25 14:43 Temperature Temperature Source Pulse Rate 76 75 67 Pulse Rate [Right Brachial] Respiratory Rate 24 25 H 22 Blood Pressure 82/43 L 105/66 L 92/55 L Blood Pressure [Right Arm] Blood Pressure Mean 48 78 58 Blood Pressure Mean [Right Arm] Blood Pressure Source Blood Pressure Source [Right Arm] Blood Pressure Position Blood Pressure Position [Right Arm] 02 Sat by Pulse Oximetry 95 93 L 95 Oxygen Delivery Method Oxygen Flow Rate (LPM) 2 2 05/25/25 14:45 05/25/25 15:00 05/25/25 15:15 Temperature Temperature Source Pulse Rate 65 66 Pulse Rate [Right Brachial] Respiratory Rate 25 H 23 24 Blood Pressure 113/64 104/58 L 105/60 L Blood Pressure [Right Arm] Blood Pressure Mean 68 Blood Pressure Mean [Right Arm] Blood Pressure Source Blood Pressure Source [Right Arm] Blood Pressure Position Blood Pressure Position [Right Arm] 02 Sat by Pulse Oximetry 91 L 90 L 95 Oxygen Delivery Method Oxygen Flow Rate (LPM) 2 05/25/25 15:30 05/25/25 15:58 05/25/25 16:15 Temperature Temperature Source Pulse Rate Pulse Rate [Right Brachial] Respiratory Rate 28 H 22 Blood Pressure 102/62 L 89/53 L 81/40 L Blood Pressure [Right Arm] Blood Pressure Mean 65 61 48 Blood Pressure Mean [Right Arm] Blood Pressure Source Blood Pressure Source [Right Arm] Blood Pressure Position Blood Pressure Position [Right Arm] 02 Sat by Pulse Oximetry 95 Oxygen Delivery Method Oxygen Flow Rate (LPM) 05/25/25 16:29 05/25/25 16:37 05/25/25 16:45 Temperature Temperature Source Pulse Rate Pulse Rate [Right Brachial] Respiratory Rate 22 22 Blood Pressure 140/68 120/71 109/52 L Blood Pressure [Right Arm] Blood Pressure Mean 103 95 76 Blood Pressure Mean [Right Arm] Blood Pressure Source Blood Pressure Source [Right Arm] Blood Pressure Position Blood Pressure Position [Right Arm] 02 Sat by Pulse Oximetry Oxygen Delivery Method Oxygen Flow Rate (LPM) 05/25/25 17:00 05/25/25 18:07 Temperature 97.9 F Temperature Source Oral Pulse Rate 64 62 Pulse Rate [Right Brachial] Respiratory Rate 19 22 Blood Pressure 122/62 123/57 L Blood Pressure [Right Arm] Blood Pressure Mean 94 Blood Pressure Mean [Right Arm] Blood Pressure Source Automatic Cuff Blood Pressure Source [Right Arm] Blood Pressure Position Sitting Blood Pressure Position [Right Arm] 02 Sat by Pulse Oximetry 97 Oxygen Delivery Method Nasal Cannula Oxygen Flow Rate (LPM) 2 2 Lab Data Lab Results 05/25/25 13:22: WBC 23.7 H*, RBC 3.86 L, Hgb 11.1 L, Hct 35.2 L, MCV 91.2, MCH 28.8, MCHC 31.5 L, RDW 15.9, Plt Count 364, MPV 9.1, Neut % (Auto) 85.9 H, Lymph % (Auto) 5.7 L, [place] % (Auto) 7.3, Eos % (Auto) 0.2, Baso % (Auto) 0.3, Neut # (Auto) 20.4 H, Lymph # (Auto) 1.4, [place] # (Auto) 1.7 H, Eos # (Auto) 0.1, Baso # (Auto) 0.1, Total Counted 100, Neutrophils % (Manual) 82 H, Lymphocytes % (Manual) 14, Monocytes % (Manual) 4, Platelet Estimate Normal, RBC Morphology Normal, Sodium 136, Potassium 4.4, Chloride 95 L, Carbon Dioxide 28, Anion Gap 17.4 H, BUN 23 H, Creatinine 0.90, Estimated Creat Clear 63, Estimated GFR 84, Est GFR ( Amer) 102, Glucose 149 H, Calcium 8.8, Magnesium 1.7, Total Bilirubin 1.2, AST 26, ALT 19, Alkaline Phosphatase 111, Troponin I < 0.01, NT-Pro-B Natriuret Pep 2300 H, Total Protein 7.8, Albumin 4.0, Globulin 3.8 H, Albumin/Globulin Ratio 1.1 05/25/25 13:29: VBG pH 7.30 L, VBG pCO2 57.9 H, VBG pO2 31.9, VBG HCO3 27.7, VBG Total CO2 29.5 H, VBG O2 Saturation 59.3, VBG Base Excess 1.3, VBG Lactic Acid 1.6 05/25/25 13:33: SARS-CoV-2 (PCR) Not detected, Influenza Type A (PCR) Not detected, Influenza Type B (PCR) Not detected, RSV (PCR) Not detected, Rhinovirus (PCR) Detected 05/25/25 13:22 05/25/25 13:22 Orders (Tests/Meds): ED MEDICATIONS Generic Name Dose Route Start Last Admin Trade Name Freq PRN Reason Stop Dose Admin Acetaminophen 650 mg 05/25/25 16:43 Acetaminophen 325mg Tab PO 06/24/25 16:42 Q4HP PRN Fever or Mild Pain (1-3) Enoxaparin Sodium 40 mg 05/26/25 09:00 Enoxaparin 40mg/0.4ml Syringe SUBCUT 06/25/25 08:59 DAILY MARCELA Norepinephrine/Dextrose 8 mg in 250 mls @ 15 mls/hr 05/25/25 16:03 05/25/25 16:30 Levophed 8mg/250ml-D5w Premix IV 06/24/25 16:02 8 mcg/min .[id number] MARCELA 15 mls/hr Protocol Titration 8 MCG/MIN Nicotine 21 mg 05/25/25 16:43 Nicotine 21mg/24hr Patch TD 06/24/25 16:42 DAILYP PRN Nicotine Cravings Pantoprazole Sodium 40 mg 05/25/25 21:00 Pantoprazole 40mg Tablet PO 06/24/25 20:59 HS MARCELA Discontinued Medications Generic Name Dose Route Start Last Admin Trade Name Freq PRN Reason Stop Dose Admin Albuterol/Ipratropium 9 ml 05/25/25 13:30 05/25/25 13:37 Ipratropium/Albuterol 3 Ml Neb IH 05/25/25 13:31 9 ml ONCE ONE Administration Sodium Chloride 500 mls @ 999 mls/hr 05/25/25 13:52 05/25/25 14:36 Sod Chlor 0.9% 1000ml Bag IV 05/25/25 14:22 Infused .Q31M ONE Infusion Ceftriaxone Sodium 1 gm/ 50 mls @ 100 mls/hr 05/25/25 14:03 05/25/25 15:05 Sodium Chloride IV 05/25/25 14:32 Infused ONCE ONE Infusion Azithromycin 500 mg/ Sodium 250 mls @ 250 mls/hr 05/25/25 14:03 05/25/25 17:23 Chloride IV 05/25/25 14:04 Infused ONCE ONE Infusion Sodium Chloride 1,000 mls @ 999 mls/hr 05/25/25 14:12 05/25/25 17:23 Sod Chlor 0.9% 1000ml Bag IV 05/25/25 15:12 Infused .Q1H1M ONE Infusion Iopamidol 75 ml 05/25/25 14:16 05/25/25 14:16 Iopamidol-370 (76%);100ml Bottle IV 05/25/25 14:17 75 ml ONCE ONE Administration Methylprednisolone Sodium Succinate 125 mg 05/25/25 13:30 05/25/25 13:37 Methylprednisolone Sod Succ 125mg Vial IV 05/25/25 13:31 125 mg ONCE ONE Administration Sodium Chloride 10 ml 05/25/25 14:16 05/25/25 14:16 Sodium Chloride 0.9% 10ml Syr (Rad Only) IV 05/25/25 14:17 10 ml ONCE ONE Administration ORDERS Category Date Time Status CT chest w con Stat Cat Scan 05/25/25 14:05 Completed Pulmonology Consult [Consult to Pulmonology] [CONS] Cons 05/25/25 16:43 Active Routine XR chest portable Stat Exams 05/25/25 13:27 Completed BNP [NT Pro Brain Natriuretic Pep.] Stat Lab 05/25/25 13:22 Completed Complete Blood Count Auto Diff AMLAB Lab 05/26/25 06:00 Ordered Complete Blood Count Auto Diff Stat Lab 05/25/25 13:22 Completed Comprehensive Metabolic Panel AMLAB Lab 05/26/25 06:00 Ordered Comprehensive Metabolic Panel Stat Lab 05/25/25 13:22 Completed Magnesium AMLAB Lab 05/26/25 06:00 Ordered Magnesium Stat Lab 05/25/25 13:22 Completed Mini Respiratory Panel Stat Lab 05/25/25 13:33 Completed Troponin I Q3H Lab 05/25/25 17:26 Completed Troponin I Q3H Lab 05/25/25 19:30 Ordered Troponin I Stat Lab 05/25/25 13:22 Completed Blood Culture Stat Micro 05/25/25 14:30 Received Venous Blood Gas Stat RT 05/25/25 13:29 Completed ECG Data Tracing #1: Independently interpreted by myself demonstrate normal sinus rhythm without obvious acute ischemic ST change. There are significant artifact in V3, but otherwise not acutely actionable
--- NOTE | 2025-05-25 13:24 | ECG_ITS ---
APPROVED REPORT Exam: Resting ECG HR:78 bpm ECG Measurements Heart Rate 78 AXES VA 139 P 82 QRSd 104 QRS 75 QT 353 T 55 QTc 386 Conclusion SINUS RHYTHM ANTERIOR MYOCARDIAL INFARCTION , PROBABLY OLD 40+ ms Q WAVE AND/OR ST/T ABNORMALITY IN V3/V4 Artifact limits interpretation, no STEMI within the limitations of the study Electronically signed by : BYRON JEONG, 05/27/2025 03:16:16
--- NOTE | 2025-05-25 13:27 | XR_ITS ---
PROCEDURE INFORMATION: Exam: XR Chest Exam date and time: 05/25/2025 1:43 PM Age: 64 years old Clinical indication: Cough and shortness of breath; Additional info: SOA TECHNIQUE: Imaging protocol: Radiologic exam of the chest. Views: 1 view. COMPARISON: CR XR CHEST PORTABLE 05/07/2025 7:36 PM FINDINGS: Lungs: Increased focal opacities of the peripheral mid lung, bilaterally concerning for infectious process. Pleural spaces: Unremarkable. No gross pleural effusion. No pneumothorax. Heart/Mediastinum: Unremarkable. No cardiomegaly. Bones/joints: Cervical fusion hardware is present. IMPRESSION: Increased focal opacities of the peripheral mid lung, bilaterally concerning for infectious process.
--- NOTE | 2025-05-25 13:29 | PC.NURSE ---
RT notified of VBG in lab
[2025-05-25 13:34] LABS: Lactate Venous 1.6 mmol/L (0.4-2.0); VBG HCO3 27.7 mmol/L (23-30); VBG PCO2 57.9 mmol/L (35-51); VBG PH 7.30 mmol/L (7.31-7.41); VBG PO2 31.9 mmol/L (28-40)
[2025-05-25] MEDS: IPRATROPIUM/ALBUTEROL 3 ML NEB 9 ML IH (13:37)
[2025-05-25] MEDS: METHYLPREDNISOLONE SOD SUCC 125MG VIAL 125 MG IV (13:37)
--- NOTE | 2025-05-25 13:38 | ED_ITS ---
<Statement entered by Rodolfo Estrada MD - 05/26/25 11:44> I independently evaluated this pt. 64yo M comorbid PMH COPD, CHF (last EF 55% on my review of EMR). Recently doubled Bumex dose. Worsening productive cough. Tachycardic, tachypenic here. ronchorus bilaterally. wheezing. RT to eval and treat. WBC 24. initial perfusion exam is good. bilateral PNA on my interpretation of CXR. Blood Cx, CAP Abx rocephin zithromax. despite 30cc/kg crystalloid resus, having some hypotension. tired, but mentating ok. respiratory work of breathiperfusion remains good on reassessment. peripheral levophed begun at 8mcg/hr. admitted to icu. CC time of 31minutes for frequent reassessments, sepsis management, titrating vasopressors, high risk of decompensation. Independently interpreted ekg by myself demonstrate normal sinus rhythm without obvious acute ischemic ST change. There are significant artifact in V3, but otherwise not acutely actionable I was consulted by the [facility], and we discussed the complexity of problems being addressed. I approved the treatment and management plan for this patient's care in the emergency department, thus performing a substantial portion of the medical decision making. Rodolfo Estrada MD Discharge Plan Disposition Patient Disposition: Admitted Clinical Impressions Clinical Impression: Pneumonia, Hypotension, Hypoxia, Fatigue Discharge ED Provider: Rodolfo Estrada Adult HPI General Chief complaint: Shortness of Breath/Dyspnea Stated complaint: SOA weakness poss. dehydration Time Seen by Provider: 05/25/25 13:16 Mode of Arrival: Ambulatory Source of Information: Patient Description of Symptoms (Recalled from ER Triage Doc. by RN): Patient states he has been feeling short of breath and his lungs are full of fluid and he thinks that its because his doctor increased his Buspar to 10 mg BID from 5 mg BID. Patient states this was 2 days ago. patient wears 2-4L NC at home all the time. History of Present Illness HPI narrative: patient is a 64-year-old male PMHx COPD (2L NC), HFpEF, depression, history of tobacco use, anxiety, HTN, HLD, history of malnutrition who presents to the ED with complaints of shortness of breath and fatigue x 2 to 3 days. Patient states that his Bumex dose recently changed from 5 mg to 10 mg 2 days ago and he has felt poorly since then. Related Data Home Medications ?Medication ?Instructions ?Recorded ?Confirmed albuterol sulfate 90 mcg/actuation 2 inh inhalation QI DP PRN 11/05/23 05/21/25 aerosol inhaler Shortness Of Breath Or Wheez ing oxycodone-acetaminophen 7.5 mg-325 1 tab PO TID 05/21/25 mg tablet carvedilol 3.125 mg tablet 3.125 mg PO BID 11/03/24 atorvastatin 20 mg tablet 20 mg PO DAILY 05/21/2511/08 buspirone 5 mg tablet 5 mg PO BID 05/21/25 5 Previous Rx's ?Medication ?Instructions ?Recorded duloxetine 60 mg capsule,delayed 60 mg PO BID 90 days #180 caps 10/23/24 release furosemide 20 mg tablet (Lasix) 20 mg PO DAILY #90 tab s 02/15/25 ipratropium 0.5 mg-albuterol 3 mg See Rx Instructions .Route 02/17/25 (2.5 mg base)/3 mL nebulization .COMPLEX #180 mL soln gabapentin 600 mg tablet 600 mg PO TID #20 tabs 03/03 tiotropium 2.5 mcg-olodaterol 2.5 See Rx Instructions .Route 04/09/25 mcg/actuation mist for inhalation .COMPLEX #12 grams (Stiolto Respimat) buspirone 10 mg tablet 10 mg PO BID #60 tabs Allergies Allergy/AdvReac Type Severity Reaction Status Date / Time methocarbamol (From ROBAXIN) Allergy Unknown Shakiness Verified 05/21/25 10:41 pregabalin (From LYRICA) Allergy Unknown Shakiness Verified 05/21/25 10:41 methadone Allergy Difficulty Verified 05/21/25 10:41 Breathing ibuprofen AdvReac Cramping Verified 05/21/25 10:41 of the Muscles PFSH [facility] Disclaimer: The information contained in this section may have been updated after the patient was seen, as this information can be updated by other users. Medical History (Updated 05/25/25 @ 16:46 by Kota Arrington MD) Prediabetes (HFpEF) heart failure with preserved ejection fraction Esophageal thickening Solid nodule of lung greater than 8 mm in diameter COPD mixed type Nodule of left lung SIRS (systemic inflammatory response syndrome) Acute and chronic respiratory failure with hypoxia Postherpetic trigeminal neuralgia Encounter for screening for malignant neoplasm of lung in current smoker with 30 pack year history or greater Abnormal screening computed tomography (CT) of chest Nonischemic cardiomyopathy Diastolic dysfunction Elevated left ventricular end-diastolic pressure (LVEDP) Non-STEMI (non-ST elevated myocardial infarction) Emphysema/COPD Pneumonia due to gram-negative bacteria Low body mass index (BMI) COPD (chronic obstructive pulmonary disease) with acute bronchitis Upper respiratory infection Rhinovirus infection HLD (hyperlipidemia) Tobacco dependence syndrome Chest pain Cardiomyopathy Preoperative clearance Poisoning by opiate or related narcotic Atypical pneumonia Postherpetic neuralgia Left against medical advice HTN (hypertension) Elevated C-reactive protein CAP (community acquired pneumonia) COPD (chronic obstructive pulmonary disease) Pain, eye, right Herpes zoster ophthalmicus, right eye Eye pain Shingles Neuropathy Surgical History H/O cervical spine surgery H/O cardiac catheterization Family History Mother Lung cancer Family history of acute congestive heart failure Father Lung cancer Family history of acute congestive heart failure Social History Smoking Status: Current every day smoker tobacco type: cigarettes packs per day: 1 smoking status stop date: december 2021 second hand exposure: Yes alcohol intake: former substance use type: denies use current occupational status: disabled Travel in the last 8 weeks?: None household members: children housing: house marital status: current occupational exposures/hazards: No pets and animals: No caffeine: Yes Have you lived/traveled outside [place] in past 30 days?: No Contact w/someone who lives/traveled outside US past 30 days?: No Exposure to someone with infectious disease in past 14 days?: No Do you have a fever (greater than 100.4 F or 38 C)?: No Have you tested positive for COVID-19?: No Exposed to someone with COVID-19 in past 14 days?: No Do you have a sore throat?: No Do you have a cough?: No Do you have any weakness?: No Do you have any diarrhea?: No Are you experiencing any unusual bleeding?: No Do you have any muscle aches/pain?: No Do you have any abdominal pain?: No Are you experiencing loss of taste or smell?: No Other Medical History Have you received the Flu Vaccine for this season: No Have you received the Pneumonia Vaccine: No ROS Obtained: Yes Systems reviewed as appropriate & no additional complaints except as documented Physical Exam General General appearance: alert Head Head exam: atraumatic Eye Eye exam: Present PERRL; Absent nystagmus Respiratory Respiratory exam: Present normal lung sounds bilaterally and other (Tachypnea) Cardiovascular Cardiovascular exam: Present tachycardia (rate 130) Abdominal Exam Abdominal exam: Present soft; Absent tenderness Back Exam Back exam: Present full ROM Neurological Exam Neurological exam: Present alert and other (disoriented ) Skin Skin exam: Present dry Medical Decision Making Medical Records Screening: Per USPSTF and CDC recommendations, given the prevalence of disease in our region, it is our hospital?s policy to screen for HIV and viral Hepatitis for all patients aged 18 and over and those with ongoing risk factors. Marck Inquiry Pt receiving controlled substance: No Vital Signs: 05/25/25 13:02 05/25/25 13:50 05/25/25 13:52 Temperature 98.5 F Temperature Source Oral Pulse Rate 78 Pulse Rate [Right Brachial] 79 Respiratory Rate 16 24 18 Blood Pressure 69/44 L 77/38 L Blood Pressure [Right Arm] 87/47 L Blood Pressure Mean 52 Blood Pressure Mean [Right Arm] 60 Blood Pressure Source Automatic Cuff Blood Pressure Source [Right Arm] Automatic Cuff Blood Pressure Position Sitting Blood Pressure Position [Right Arm] Sitting 02 Sat by Pulse Oximetry 85 L 93 L 96 Oxygen Delivery Method Nasal Cannula Oxygen Flow Rate (LPM) 4 2 05/25/25 13:57 05/25/25 14:09 05/25/25 14:43 Temperature Temperature Source Pulse Rate 76 75 67 Pulse Rate [Right Brachial] Respiratory Rate 24 25 H 22 Blood Pressure 82/43 L 105/66 L 92/55 L Blood Pressure [Right Arm] Blood Pressure Mean 48 78 58 Blood Pressure Mean [Right Arm] Blood Pressure Source Blood Pressure Source [Right Arm] Blood Pressure Position Blood Pressure Position [Right Arm] 02 Sat by Pulse Oximetry 95 93 L 95 Oxygen Delivery Method Oxygen Flow Rate (LPM) 2 2 05/25/25 14:45 05/25/25 15:00 05/25/25 15:15 Temperature Temperature Source Pulse Rate 65 66 Pulse Rate [Right Brachial] Respiratory Rate 25 H 23 24 Blood Pressure 113/64 104/58 L 105/60 L Blood Pressure [Right Arm] Blood Pressure Mean 68 Blood Pressure Mean [Right Arm] Blood Pressure Source Blood Pressure Source [Right Arm] Blood Pressure Position Blood Pressure Position [Right Arm] 02 Sat by Pulse Oximetry 91 L 90 L 95 Oxygen Delivery Method Oxygen Flow Rate (LPM) 2 05/25/25 15:30 05/25/25 15:58 05/25/25 16:15 Temperature Temperature Source Pulse Rate Pulse Rate [Right Brachial] Respiratory Rate 28 H 22 Blood Pressure 102/62 L 89/53 L 81/40 L Blood Pressure [Right Arm] Blood Pressure Mean 65 61 48 Blood Pressure Mean [Right Arm] Blood Pressure Source Blood Pressure Source [Right Arm] Blood Pressure Position Blood Pressure Position [Right Arm] 02 Sat by Pulse Oximetry 95 Oxygen Delivery Method Oxygen Flow Rate (LPM) 05/25/25 16:29 05/25/25 16:37 05/25/25 16:45 Temperature Temperature Source Pulse Rate Pulse Rate [Right Brachial] Respiratory Rate 22 22 Blood Pressure 140/68 120/71 109/52 L Blood Pressure [Right Arm] Blood Pressure Mean 103 95 76 Blood Pressure Mean [Right Arm] Blood Pressure Source Blood Pressure Source [Right Arm] Blood Pressure Position Blood Pressure Position [Right Arm] 02 Sat by Pulse Oximetry Oxygen Delivery Method Oxygen Flow Rate (LPM) 05/25/25 17:00 05/25/25 18:07 Temperature 97.9 F Temperature Source Oral Pulse Rate 64 62 Pulse Rate [Right Brachial] Respiratory Rate 19 22 Blood Pressure 122/62 123/57 L Blood Pressure [Right Arm] Blood Pressure Mean 94 Blood Pressure Mean [Right Arm] Blood Pressure Source Automatic Cuff Blood Pressure Source [Right Arm] Blood Pressure Position Sitting Blood Pressure Position [Right Arm] 02 Sat by Pulse Oximetry 97 Oxygen Delivery Method Nasal Cannula Oxygen Flow Rate (LPM) 2 2 Lab Data Lab Results 05/25/25 13:22: WBC 23.7 H*, RBC 3.86 L, Hgb 11.1 L, Hct 35.2 L, MCV 91.2, MCH 28.8, MCHC 31.5 L, RDW 15.9, Plt Count 364, MPV 9.1, Neut % (Auto) 85.9 H, Lymph % (Auto) 5.7 L, [place] % (Auto) 7.3, Eos % (Auto) 0.2, Baso % (Auto) 0.3, Neut # (Auto) 20.4 H, Lymph # (Auto) 1.4, [place] # (Auto) 1.7 H, Eos # (Auto) 0.1, Baso # (Auto) 0.1, Total Counted 100, Neutrophils % (Manual) 82 H, Lymphocytes % (Manual) 14, Monocytes % (Manual) 4, Platelet Estimate Normal, RBC Morphology Normal, Sodium 136, Potassium 4.4, Chloride 95 L, Carbon Dioxide 28, Anion Gap 17.4 H, BUN 23 H, Creatinine 0.90, Estimated Creat Clear 63, Estimated GFR 84, Est GFR ( Amer) 102, Glucose 149 H, Calcium 8.8, Magnesium 1.7, Total Bilirubin 1.2, AST 26, ALT 19, Alkaline Phosphatase 111, Troponin I < 0.01, N T-Pro-B Natriuret Pep 2300 H, Total Protein 7.8, Albumin 4.0, Globulin 3.8 H, Albumin/Globulin Ratio 1.1 05/25/25 13:29: VBG pH 7.30 L, VBG pCO2 57.9 H, VBG pO2 31.9, VBG HCO3 27.7, VBG Total CO2 29.5 H, VBG O2 Saturation 59.3, VBG Base Excess 1.3, VBG Lactic Acid 1.6 05/25/25 13:33: SARS-CoV-2 (PCR) Not detected, Influenza Type A (PCR) Not detected, Influenza Type B (PCR) Not detected, RSV (PCR) Not detected, Rhinovirus (PCR) Detected 05/25/25 13:22 05/25/25 13:22 Orders (Tests/Meds): ED MEDICATIONS Generic Name Dose Route Start Last Admin Trade Name Freq PRN Reason Stop Dose Admin Acetaminophen 650 mg 05/25/25 16:43 Acetaminophen 325mg Tab PO 06/24/25 16:42 Q4HP PRN Fever or Mild Pain (1-3) Enoxaparin Sodium 40 mg 05/26/25 09:00 Enoxaparin 40mg/0.4ml Syringe SUBCUT 06/25/25 08:59 DAILY MARCELA Norepinephrine/Dextrose 8 mg in 250 mls @ 15 mls/hr 05/25/25 16:03 05/25/25 16:30 Levophed 8mg/250ml-D5w Premix IV 06/24/25 16:02 8 mcg/min .[id number] MARCELA 15 mls/hr Protocol Titration 8 MCG/MIN Nicotine 21 mg 05/25/25 16:43 Nicotine 21mg/24hr Patch TD 06/24/25 16:42 DAILYP PRN Nicotine Cravings Pantoprazole Sodium 40 mg 05/25/25 21:00 Pantoprazole 40mg Tablet PO 06/24/25 20:59 HS MARCELA Discontinued Medications Generic Name Dose Route Start Last Admin Trade Name Freq PRN Reason Stop Dose Admin Albuterol/Ipratropium 9 ml 05/25/25 13:30 05/25/25 13:37 Ipratropium/Albuterol 3 Ml Neb IH 05/25/25 13:31 9 ml ONCE ONE Administration Sodium Chloride 500 mls @ 999 mls/hr 05/25/25 13:52 05/25/25 14:36 Sod Chlor 0.9% 1000ml Bag IV 05/25/25 14:22 Infused .Q31M ONE Infusion Ceftriaxone Sodium 1 gm/ 50 mls @ 100 mls/hr 05/25/25 14:03 05/25/25 15:05 Sodium Chloride IV 05/25/25 14:32 Infused ONCE ONE Infusion Azithromycin 500 mg/ Sodium 250 mls @ 250 mls/hr 05/25/25 14:03 05/25/25 17:23 Chloride IV 05/25/25 14:04 Infused ONCE ONE Infusion Sodium Chloride 1,000 mls @ 999 mls/hr 05/25/25 14:12 05/25/25 17:23 Sod Chlor 0.9% 1000ml Bag IV 05/25/25 15:12 Infused .Q1H1M ONE Infusion Iopamidol 75 ml 05/25/25 14:16 05/25/25 14:16 Iopamidol-370 (76%);100ml Bottle IV 05/25/25 14:17 75 ml ONCE ONE Administration Methylprednisolone Sodium Succinate 125 mg 05/25/25 13:30 05/25/25 13:37 Methylprednisolone Sod Succ 125mg Vial IV 05/25/25 13:31 125 mg ONCE ONE Administration Sodium Chloride 10 ml 05/25/25 14:16 05/25/25 14:16 Sodium Chloride 0.9% 10ml Syr (Rad Only) IV 05/25/25 14:17 10 ml ONCE ONE Administration ORDERS Category Date Time Status CT chest w con Stat Cat Scan 05/25/25 14:05 Completed Pulmonology Consult [Consult to Pulmonology] [CONS] Cons 05/25/25 16:43 Active Routine XR chest portable Stat Exams 05/25/25 13:27 Completed BNP [NT Pro Brain Natriuretic Pep.] Stat Lab 05/25/25 13:22 Completed Complete Blood Count Auto Diff AMLAB Lab 05/26/25 06:00 Ordered Complete Blood Count Auto Diff Stat Lab 05/25/25 13:22 Completed Comprehensive Metabolic Panel AMLAB Lab 05/26/25 06:00 Ordered Comprehensive Metabolic Panel Stat Lab 05/25/25 13:22 Completed Magnesium AMLAB Lab 05/26/25 06:00 Ordered Magnesium Stat Lab 05/25/25 13:22 Completed Mini Respiratory Panel Stat Lab 05/25/25 13:33 Completed Troponin I Q3H Lab 05/25/25 17:26 Completed Troponin I Q3H Lab 05/25/25 19:30 Ordered Troponin I Stat Lab 05/25/25 13:22 Completed Blood Culture Stat Micro 05/25/25 14:30 Received Venous Blood Gas Stat RT 05/25/25 13:29 Completed Medical Decision Narrative: In summary patient is a 64-year-old male PMHx COPD (2L NC), HFpEF, depression, history of tobacco use, anxiety, HTN, HLD, history of malnutrition who presents to the ED with complaints of shortness of breath and fatigue x 2 to 3 days. Patient states that his Bumex dose recently changed from 5 mg to 10 mg 2 days ago and he has felt poorly since then. He denies fever, headache, visual changes, chest pain, abdominal pain, nausea, vomiting. Upon initial evaluation patient is alert, oriented and cooperative. He is 93% on 2 L, tachypneic at 33, not tachycardic and normal blood pressures initially. Physical exam remarkable for cachexia, expiratory wheezing and rhonchi noted, abdomen soft and nontender. Differential diagnosis include ACS, pneumonia, pneumothorax, sepsis, hypoxic, among others. Discussed with patient we will administer DuoNebs, Solu-Medrol for COPD exacerbation, IV fluid, and perform labs, chest x-ray and CT scan. Was notified that patient became hypotensive, I immediately attended bedside, we repeated blood pressures systolic 70s. Patient states he feels the same just tired. Will start sepsis bolus of 2 L normal saline and start IV antibiotics due to chest x-ray resulting as a bilateral pneumonia as well. Will administer Rocephin and azithromycin. Records reviewed, patient's last EF 55%, per cardiology notes. CBC remarkable for leukocytosis, WBC 23.7, stable H&H. VBG pH 7.30, CO2 57.9, CMP remarkable for anion gap 17.4, BUN 23, creatinine 0.90. Glucose 149. First troponin < 0.01. BNP 2,300. Chest x-ray remarkable for increased focus opacities in the peripheral midlung bilaterally concerning for infectious process. Curb65 score 4. Patient began to desat, 87% on 2 L, nasal cannula increased to 4 L. Patient remains persistently hypotensive, systolic in the low 80s, MAP remains 60 or above, will start levo drip. Upon reassessment, patient's condition has not improved. He has now had 2 L normal saline, Rocephin and azithromycin. Discussed with patient we will admit him to ICU for further monitoring. Critical Care Critical Care Time Critical Care Time: No
[2025-05-25 13:40] LABS: Alanine Aminotransferase 19 U/L (12-78); Albumin Level 4.0 g/dl (3.5-5.0); Albumin/Globulin Ratio 1.1 (1.1-1.8); Alkaline Phosphatase 111 U/L (38-126); Anion Gap 17.4 mEq/L (5-15); Aspartate Amino Transferase 26 U/L (17-59); Bilirubin,Total 1.2 mg/dl (0.2-1.3); Blood Urea Nitrogen 23 mg/dl (9-20); Calcium 8.8 mg/dl (8.4-10.2); Carbon Dioxide 28 mmol/L (22.0-30.0); Chloride 95 mmol/L (98-107); Creatinine Clearance Estimated 63 mL/min (50-200); Creatinine,Serum 0.90 mg/dl (0.66-1.25); Estimated Glomerular Filt Rate 84 ml/min (>60); GFR (African American) 102 ML/MIN (>60); Globulin 3.8 g/dL (1.3-3.2); Glucose 149 mg/dl (74-100); Hematocrit 35.2 % (42.0-52.0); Hemoglobin 11.1 g/dL (14.1-18.0); Immature Granulocytes % 0.6 %; Mean Corpuscular HGB Conc 31.5 g/dL (31.8-35.4); Mean Corpuscular Hemoglobin 28.8 pg (27.0-31.2); Mean Corpuscular Volume 91.2 fl (80-94); Nucleated Red Blood Cells % 0 %; Platelet Count 364 K/mm3 (142-424); Potassium 4.4 mmoL/L (3.5-5.1); Red Blood Count 3.86 M/mm3 (4.60-6.20); Red Cell Distribution Width-SD 53.7 fL; Sodium 136 mmol/L (136-145); Total Protein,Serum 7.8 g/dl (6.3-8.2); White Blood Count 23.7 K/mm3 (4.8-10.8)
[2025-05-25 13:42] LABS: Coronavirus 19, PCR Not Detected (NotDetected); Influenza A, PCR Not Detected (NotDetected); Influenza B, PCR Not Detected (NotDetected)
--- NOTE | 2025-05-25 13:51 | PC.NURSE ---
noemy HEALTH EDUCATION AIDE notified of bp 77/38 verbal order received for 500cc NS bolus to be given
[2025-05-25 13:53] LABS: Troponin I < 0.01 ng/ml (0.00-0.034)
[2025-05-25] MEDS: 0.9 % SODIUM CHLORIDE 1000ML 500 ML 999 ML IV (14:05)
--- NOTE | 2025-05-25 14:05 | CT_ITS ---
PROCEDURE INFORMATION: Exam: CT Chest With Contrast; Diagnostic Exam date and time: 05/25/2025 2:15 PM Age: 64 years old Clinical indication: Cough; Additional info: SOA TECHNIQUE: Imaging protocol: Diagnostic computed tomography of the chest with contrast. Radiation optimization: All CT scans at this facility use at least one of these dose optimization techniques: automated exposure control; mA and/or kV adjustment per patient size (includes targeted exams where dose is matched to clinical indication); or iterative reconstruction. Contrast material: ISOVUE; Contrast volume: 75 ml; Contrast route: IV; COMPARISON: CT ANGIO CHEST PE PROTOCOL 11/03/2024 2:40 AM FINDINGS: Lungs: Widespread patchy pulmonary opacities. There are secretions in the airways throughout the lungs. This could be endobronchial spread of infection or aspiration. Moderate centrilobular and paraseptal emphysema. There is an 8 mm left apical nodular opacity image 14 series 3 that is unchanged from prior studies and likely a scar. Pleural spaces: Small pleural effusions. Heart: Mild cardiomegaly. Coronary arteries: Coronary artery calcifications. Esophagus: Bowel wall thickening of the lower esophagus. Lymph nodes: Mildly enlarged paraesophageal, bilateral hilar, and mediastinal lymph nodes are similar to prior studies and could be reactive. Vasculature: The aorta demonstrates moderate atherosclerotic disease. Liver: Heterogeneous appearance of the liver. Intrahepatic and extrahepatic biliary dilatation of indeterminate significance. This is unchanged to slightly worse compared to prior study. Kidneys: Low attenuation renal lesions measuring up to 11 mm in diameter are incompletely characterized, but are likely cysts. No followup imaging is warranted. Bones/joints: Postsurgical changes of the cervical spine. Chronic bilateral rib fractures. Soft tissues: Unremarkable. Other findings: Stigmata of old granulomatous disease. IMPRESSION: 1. Widespread patchy pulmonary opacities. Please correlate for evidence of multifocal infection, which could be typical or atypical organisms. 2. Bowel wall thickening of the lower esophagus. Please correlate for evidence of esophagitis and consider endoscopy if there is high risk for malignancy. 3. Heterogeneous appearance of the liver. Please exclude acute hepatitis. 4. Intrahepatic and extrahepatic biliary dilatation of indeterminate significance. This is unchanged to slightly worse compared to prior study. If there is clinical evidence of biliary obstruction, consider MRCP for further evaluation. 5. Small pleural effusions. COMMENTS: 1. Consistent with the [employer]'s Incidental Findings Committee white paper (J Am Janell Radiol 2018): Any incidental renal lesion less than 1 cm or classified as too small to characterize, or any incidental cystic renal lesion characterized as simple-appearing, is likely benign. No follow-up imaging is recommended for these lesions per consensus recommendations based on imaging criteria. 2. The presence of pulmonary emphysema on CT is an independent risk factor for lung cancer. In the absence of a history or active diagnosis of lung cancer, it is recommended that this patient with emphysema be evaluated for enrollment in a low dose CT lung cancer screening program.
--- NOTE | 2025-05-25 14:10 | PC.NURSE ---
PT TO CT
[2025-05-25] MEDS: SODIUM CHLORIDE 0.9% 10ML SYR (RAD ONLY) 10 ML IV (14:16)
[2025-05-25] MEDS: IOPAMIDOL-370 (76%);100ML BOTTLE 75 ML IV (14:16)
[2025-05-25 14:31] LABS: Magnesium 1.7 mg/dl (1.6-2.3)
[2025-05-25] MEDS: CEFTRIAXONE 1 GM 1 GM in 0.9 % SODIUM CHLORIDE 50 ML IV (14:35)
[2025-05-25] MEDS: AZITHROMYCIN 500 MG in 0.9 % SODIUM CHLORIDE 250 ML 250 MG IV (14:39)
[2025-05-25 14:40] LABS: NT Pro Brain Natriuretic Pep. 2300 pg/mL (0-125)
[2025-05-25] MEDS: 0.9 % SODIUM CHLORIDE 1000ML 1,000 ML 999 ML IV (14:42)
[2025-05-25 15:11] LABS: RBC Morphology Normal; Total Cells Counted 100
[2025-05-25] MEDS: NOREPINEPHRINE BITARTRATE/D5W 8 MG/250 ML PLAST..BAG 28.13 MG IV (16:14)
--- NOTE | 2025-05-25 16:45 | EXP.HP ---
History of Present Illness *Admission Date: 05/25/25 *Reason for visit:: dyspnea, fatigued *History of present illness: Mr. Turk is a 64-year-old male with severe COPD on chronic oxygen who continues to smoke. Presented to the ER with complaint of feeling short of breath. Feels like his lungs are full of fluid . Normally wears 2 to 4 L of oxygen at home at baseline. On arrival to the ER, patient found to be hypotensive necessitating 4 to 5 L of oxygen for sats greater 90%. Symptoms have worsened over the past 2 to 3 days. Denies any fever. Workup in the ER, found to be positive for rhinovirus. CT with multifocal airspace disease. White count elevated at 23. Medicine consulted for admission and further management of septic shock secondary to multifocal pneumonia [facility] Disclaimer: The information contained in this section may have been updated after the patient was seen, as this information can be updated by other users. Medical History Prediabetes (HFpEF) heart failure with preserved ejection fraction Esophageal thickening Solid nodule of lung greater than 8 mm in diameter COPD mixed type Nodule of left lung SIRS (systemic inflammatory response syndrome) Acute and chronic respiratory failure with hypoxia Postherpetic trigeminal neuralgia Encounter for screening for malignant neoplasm of lung in current smoker with 30 pack year history or greater Abnormal screening computed tomography (CT) of chest Nonischemic cardiomyopathy Diastolic dysfunction Elevated left ventricular end-diastolic pressure (LVEDP) Non-STEMI (non-ST elevated myocardial infarction) Emphysema/COPD Pneumonia due to gram-negative bacteria Low body mass index (BMI) COPD (chronic obstructive pulmonary disease) with acute bronchitis Upper respiratory infection Rhinovirus infection HLD (hyperlipidemia) Tobacco dependence syndrome Chest pain Cardiomyopathy Preoperative clearance Poisoning by opiate or related narcotic Atypical pneumonia Postherpetic neuralgia Left against medical advice HTN (hypertension) Elevated C-reactive protein CAP (community acquired pneumonia) COPD (chronic obstructive pulmonary disease) Pain, eye, right Herpes zoster ophthalmicus, right eye Eye pain Shingles Neuropathy Surgical History H/O cervical spine surgery H/O cardiac catheterization Family History Mother Lung cancer Family history of acute congestive heart failure Father Lung cancer Family history of acute congestive heart failure Social History Smoking Status: Current every day smoker tobacco type: cigarettes packs per day: 1 smoking status stop date: december 2021 second hand exposure: Yes alcohol intake: former substance use type: denies use current occupational status: disabled Travel in the last 8 weeks?: None household members: children housing: house marital status: current occupational exposures/hazards: No pets and animals: No caffeine: Yes Have you lived/traveled outside [place] in past 30 days?: No Contact w/someone who lives/traveled outside US past 30 days?: No Exposure to someone with infectious disease in past 14 days?: No Do you have a fever (greater than 100.4 F or 38 C)?: No Have you tested positive for COVID-19?: No Exposed to someone with COVID-19 in past 14 days?: No Do you have a sore throat?: No Do you have a cough?: No Do you have any weakness?: No Do you have any diarrhea?: No Are you experiencing any unusual bleeding?: No Do you have any muscle aches/pain?: No Do you have any abdominal pain?: No Are you experiencing loss of taste or smell?: No Other Medical History Have you received the Flu Vaccine for this season: No Have you received the Pneumonia Vaccine: No Review of Systems Review of Systems Review of systems (narrative): 14 point review of systems performed, pertinent positives and negatives as per HPI Meds Home Medications and Allergies Home Medications ?Medication ?Instructions ?Recorded ?Confirmed ?Type albuterol sulfate 90 mcg/actuation 2 inh inhalation QIDP PRN 11/05/23 05/21/25 History aerosol inhaler Shortness Of Breath Or Wheezing oxycodone-acetaminophen 7.5 mg-325 1 tab PO TID 10/20/24 05/21/25 History mg tablet duloxetine 60 mg capsule,delayed 60 mg PO BID 90 days #180 caps 10/23/24 05/21/25 Rx release carvedilol 3.125 mg tablet 3.125 mg PO BID 11/03/24 05/21/25 History furosemide 20 mg tablet (Lasix) 20 mg PO DAILY #90 tabs 02/15/25 05/21/25 Rx ipratropium 0.5 mg-albuterol 3 mg See Rx Instructions .Route 02/17/25 05/21/25 Rx (2.5 mg base)/3 mL nebulization .COMPLEX #180 mL soln gabapentin 600 mg tablet 600 mg PO TID #20 tabs 03/03/25 05/21/25 Rx tiotropium 2.5 mcg-olodaterol 2.5 See Rx Instructions .Route 04/09/25 05/21/25 Rx mcg/actuation mist for inhalation .COMPLEX #12 grams (Stiolto Respimat) atorvastatin 20 mg tablet 20 mg PO DAILY 05/21/25 05/21/25 History buspirone 10 mg tablet 10 mg PO BID #60 tabs 05/21/25 05/21/25 Rx buspirone 5 mg tablet 5 mg PO BID 05/21/25 05/21/25 History New Prescriptions to Start Prescriptions: Allergies Allergy/AdvReac Type Severity Reaction Status Date / Time methocarbamol (From ROBAXIN) Allergy Unknown Shakiness Verified 05/21/25 10:41 pregabalin (From LYRICA) Allergy Unknown Shakiness Verified 05/21/25 10:41 methadone Allergy Difficulty Verified 05/21/25 10:41 Breathing ibuprofen AdvReac Cramping Verified 05/21/25 10:41 of the Muscles Exam Data for Last 24 hours Vital signs and Labs for Last 24 Hours: Temp Pulse Resp BP Pulse Ox O2 Del Method O2 Flow Rate 98.5 F 66 24 105/60 L 95 Nasal Cannula 2 05/25/25 13:02 05/25/25 15:00 05/25/25 15:15 05/25/25 15:15 05/25/25 15:15 05/25/25 13:02 05/25/25 15:15 Laboratory Results - last 24 hr 05/25/25 13:22: WBC 23.7 H*, RBC 3.86 L, Hgb 11.1 L, Hct 35.2 L, MCV 91.2, MCH 28.8, MCHC 31.5 L, RDW 15.9, Plt Count 364, MPV 9.1, Neut % (Auto) 85.9 H, Lymph % (Auto) 5.7 L, [place] % (Auto) 7.3, Eos % (Auto) 0.2, Baso % (Auto) 0.3, Neut # (Auto) 20.4 H, Lymph # (Auto) 1.4, [place] # (Auto) 1.7 H, Eos # (Auto) 0.1, Baso # (Auto) 0.1, Total Counted 100, Neutrophils % (Manual) 82 H, Lymphocytes % (Manual) 14, Monocytes % (Manual) 4, Platelet Estimate Normal, RBC Morphology Normal, Sodium 136, Potassium 4.4, Chloride 95 L, Carbon Dioxide 28, Anion Gap 17.4 H, BUN 23 H, Creatinine 0.90, Estimated Creat Clear 63, Estimated GFR 84, Est GFR ( Amer) 102, Glucose 149 H, Calcium 8.8, Magnesium 1.7, Total Bilirubin 1.2, AST 26, ALT 19, Alkaline Phosphatase 111, Troponin I < 0.01, NT-Pro-B Natriuret Pep 2300 H, Total Protein 7.8, Albumin 4.0, Globulin 3.8 H, Albumin/Globulin Ratio 1.1 05/25/25 13:29: VBG pH 7.30 L, VBG pCO2 57.9 H, VBG pO2 31.9, VBG HCO3 27.7, VBG Total CO2 29.5 H, VBG O2 Saturation 59.3, VBG Base Excess 1.3, VBG Lactic Acid 1.6 05/25/25 13:33: SARS-CoV-2 (PCR) Not detected, Influenza Type A (PCR) Not detected, Influenza Type B (PCR) Not detected, RSV (PCR) Not detected, Rhinovirus (PCR) Detected I & O for Last 24 hours: Intake & Output 05/22/25 05/23/25 05/24/25 05/25/25 23:59 23:59 23:59 23:59 Intake Total 550 / 550 Balance 550 / 550 Weight 61.235 kg Constitutional Constitutional: mild distress, cachectic, chronically ill appearing and cooperative *Routine HEENT Exam Head: Present normocephalic Eye: Present EOMI and PERRL ENT: Present mucous membranes moist Comments: Bitemporal wasting, loss of periorbital and perioral fat *Routine Neck Exam Neck: Present supple; Absent lymphadenopathy *Routine Respiratory Exam Respiratory: Present accessory muscle use, prolonged expiratory phase, rhonchi, wheezes and crackles *Routine Cardiovascular Exam Cardiovascular: Present RRR *Routine Abdominal Exam Abdominal: Present soft and normoactive bowel sounds; Absent tenderness *Routine Rectal Exam Rectal:: deferred *Routine Genitalia Exam Genitalia:: deferred *Routine Extremities Exam Extremities: Absent cyanosis, clubbing or edema *Routine Skin Exam Skin: Present warm; Absent rash *Routine Neurological Exam Neurological: Present alert, oriented X3 and moving all extremities; Absent altered mental status Assessment and Plan *Assessment and plan (1) Septic shock: Status: Acute Category: Medical Code(s): A41.9 - Sepsis, unspecified organism; R65.21 - Severe sepsis with septic shock (2) Pneumonia: Status: Acute Category: Medical Code(s): J18.9 - Pneumonia, unspecified organism (3) (HFpEF) heart failure with preserved ejection fraction: Status: Acute Qualifiers: Heart failure chronicity: acute on chronic Qualified Code(s): I50.33 - Acute on chronic diastolic (congestive) heart failure Category: Medical Code(s): I50.30 - Unspecified diastolic (congestive) heart failure (4) Chronic, continuous use of opioids: Status: Acute Category: Medical Code(s): F11.90 - Opioid use, unspecified, uncomplicated (5) COPD mixed type: Status: Acute Category: Medical Code(s): J44.9 - Chronic obstructive pulmonary disease, unspecified (6) Chronic respiratory failure: Status: Acute Qualifiers: Respiratory failure complication: unspecified whether with hypoxia or hypercapnia Qualified Code(s): J96.10 - Chronic respiratory failure, unspecified whether with hypoxia or hypercapnia Category: Medical Code(s): J96.10 - Chronic respiratory failure, unspecified whether with hypoxia or hypercapnia (7) Protein-calorie malnutrition, moderate: Status: Chronic Category: Medical Code(s): E44.0 - Moderate protein-calorie malnutrition Plan 64-year-old male with severe COPD on chronic oxygen. Increased shortness of breath. Found to be septic shock with initiation of Levophed necessary in the ER. Discussed case with ER provider, request admission to the ICU for further management of septic shock due to respiratory illness. I agreed to admit for further care. Will have pulmonology evaluate in the morning. Anticipate patient will be admitted at least 2 midnights. Problems addressed as follows: Septic shock Multifocal pneumonia secondary to rhino/entero-virus COPD with exacerbation - Continues to require Levophed after arrival to the ICU. Wean as tolerated for MAP greater than 65. - White count severely elevated at 23.7, hemoglobin 11.1. Kidney function acceptable with BUN 23, creatinine 0.9. Does not appear to have EMMA. - Patient positive for rhinovirus on respiratory PCR. CT of the chest per my review showing widespread patchy opacifications bilaterally. Consistent with multifocal pneumonia. - Continue supplemental oxygen for goal sats greater 90%. Currently requiring 4 to 5 L - Blood and sputum culture pending - DuoNebs every 4 hours scheduled - Repeat CBC, CMP, magnesium ordered for the morning Anxiety/depression: Continue home BuSpar 10 mg twice daily, Cymbalta 60 mg twice daily Neuropathy/chronic pain/opiate use disorder: Continue home gabapentin 600 mg 3 times a day, oxycodone 7.5 mg 3 times a day Cardiomyopathy: Holding carvedilol 3.125 mg twice daily, Entresto twice daily in the setting of hypotension and septic shock Full code Lovenox 40 mg subcu daily Regular diet
--- NOTE | 2025-05-25 17:12 | PC.NURSE ---
microbiology supervisor contacted for bed
[2025-05-25 17:58] LABS: Troponin I < 0.01 ng/ml (0.00-0.034)
[2025-05-25 19:54] LABS: Troponin I < 0.01 ng/ml (0.00-0.034)
[2025-05-25] MEDS: GABAPENTIN 400MG CAPSULE 400 MG PO (21:18)
[2025-05-25] MEDS: PANTOPRAZOLE 40MG TABLET 40 MG PO (21:18)
[2025-05-25] MEDS: OXYCODONE 7.5MG W/APAP 325MG TABLET 1 EACH PO (21:27)
[2025-05-26] VITALS (63 sets, daily range): BP systolic 79–117; BP diastolic 33–95; PULSE 47–72; RESP 15–29; TEMP 36.3–37.1; O2SAT 87–97; BMI 16.5
[2025-05-26 07:12] LABS: Hematocrit 34.5 % (42.0-52.0); Hemoglobin 11.2 g/dL (14.1-18.0); Immature Granulocytes % 0.9 %; Mean Corpuscular HGB Conc 32.5 g/dL (31.8-35.4); Mean Corpuscular Hemoglobin 29.2 pg (27.0-31.2); Mean Corpuscular Volume 89.8 fl (80-94); Nucleated Red Blood Cells % 0 %; Platelet Count 403 K/mm3 (142-424); Red Blood Count 3.84 M/mm3 (4.60-6.20); Red Cell Distribution Width-SD 51.9 fL; White Blood Count 23.2 K/mm3 (4.8-10.8)
[2025-05-26 07:24] LABS: Albumin Level 3.6 g/dl (3.5-5.0); Chloride 102 mmol/L (98-107)
[2025-05-26 07:25] LABS: Potassium 4.3 mmoL/L (3.5-5.1); Sodium 138 mmol/L (136-145)
[2025-05-26 07:27] LABS: Alanine Aminotransferase 14 U/L (12-78); Anion Gap 12.3 mEq/L (5-15); Aspartate Amino Transferase 18 U/L (17-59); Blood Urea Nitrogen 31 mg/dl (9-20); Carbon Dioxide 28 mmol/L (22.0-30.0); Creatinine Clearance Estimated 57 mL/min (50-200); Creatinine,Serum 0.90 mg/dl (0.66-1.25); Estimated Glomerular Filt Rate 84 ml/min (>60); GFR (African American) 102 ML/MIN (>60)
[2025-05-26 07:28] LABS: Albumin/Globulin Ratio 1.1 (1.1-1.8); Alkaline Phosphatase 97 U/L (38-126); Bilirubin,Total 0.4 mg/dl (0.2-1.3); Calcium 8.3 mg/dl (8.4-10.2); Globulin 3.4 g/dL (1.3-3.2); Glucose 176 mg/dl (74-100); Magnesium 2.2 mg/dl (1.6-2.3); Total Protein,Serum 7.0 g/dl (6.3-8.2)
--- NOTE | 2025-05-26 08:32 | HMH.PHAINT1 ---
Pharmacy Intervention Comments: MEDICATION RECONCILIATION COMPLETED ON PATIENT USING EXTERNAL FILL HISTORY FROM PHARMACY. -MARGARITA LEO, AMALIAD
[2025-05-26] MEDS: GABAPENTIN 400MG CAPSULE 400 MG PO ×3 (08:34→21:30)
[2025-05-26] MEDS: OXYCODONE 7.5MG W/APAP 325MG TABLET 1 EACH PO (08:42)
[2025-05-26 09:28] LABS: RBC Morphology Normal; Total Cells Counted 100
[2025-05-26] MEDS: SODIUM CHLORIDE 3% 15ML NEB 3 ML IH (09:52)
[2025-05-26] MEDS: IPRATROPIUM/ALBUTEROL 3 ML NEB IH ×4 (10:05→22:17)
--- NOTE | 2025-05-26 10:22 | EXP.ACUTE.PN ---
Subjective *Date: 05/26/25 *Time: 14:37 Interval history: 60 little better this morning. Still on 4 to 5 L overnight. Slowly weaning Levophed. On 2 mics on morning rounds. White count remains elevated at 23. Review of chart shows previous cultures with ESBL Klebsiella. Patient denies nausea or vomiting. Having productive cough. Alert and oriented on exam Medical Exam Vital signs and Labs for Last 24 Hours: Vital Signs Temp Pulse Pulse Resp BP BP Pulse Ox 05/26/25 10:14 59 L 18 05/26/25 10:05 59 L 05/26/25 10:05 59 L 05/26/25 08:00 66 05/26/25 08:00 97.5 F L 64 22 117/90 94 L 05/26/25 07:00 54 L 21 98/58 L 92 L 05/26/25 06:45 05/26/25 06:00 60 22 97/61 L 94 L 05/26/25 05:15 54 L 23 93/62 L 91 L 05/26/25 05:01 54 L 25 H 90/60 L 95 05/26/25 04:56 05/26/25 04:00 98.3 F 60 18 90/60 L 96 05/26/25 04:00 92 L 05/26/25 04:00 60 05/26/25 03:29 05/26/25 03:15 54 L 20 86/50 L 96 05/26/25 03:00 54 L 20 82/55 L 95 05/26/25 02:45 53 L 22 88/52 L 97 05/26/25 02:30 57 L 21 92/55 L 97 05/26/25 02:00 60 21 102/78 L 96 05/26/25 01:01 96 05/26/25 01:00 47 L 24 108/58 L 95 05/26/25 01:00 05/26/25 00:45 47 L 22 97/56 L 95 05/26/25 00:30 48 L 21 104/55 L 95 05/26/25 00:00 50 L 05/26/25 00:00 98.7 F 50 L 24 115/55 L 96 05/25/25 23:00 05/25/25 23:00 54 L 23 106/61 L 96 05/25/25 22:00 58 L 24 97/60 L 93 L 05/25/25 21:00 05/25/25 21:00 57 L 25 H 104/61 L 90 L 05/25/25 20:15 114/64 05/25/25 20:01 97.6 F 74 20 107/59 L 95 05/25/25 20:00 70 05/25/25 20:00 96 05/25/25 19:00 05/25/25 18:07 97.9 F 62 22 123/57 L 05/25/25 18:00 54 L 16 120/65 92 L 05/25/25 17:28 95 05/25/25 17:00 64 19 122/62 97 05/25/25 16:45 22 109/52 L 05/25/25 16:37 22 120/71 05/25/25 16:29 140/68 05/25/25 16:15 81/40 L 95 05/25/25 15:58 22 89/53 L 05/25/25 15:30 28 H 102/62 L 05/25/25 15:15 24 105/60 L 95 05/25/25 15:00 66 23 104/58 L 90 L 05/25/25 14:45 65 25 H 113/64 91 L 05/25/25 14:43 67 22 92/55 L 95 05/25/25 14:09 75 25 H 105/66 L 93 L 05/25/25 13:57 76 24 82/43 L 95 05/25/25 13:52 78 18 77/38 L 96 05/25/25 13:50 24 69/44 L 93 L 05/25/25 13:02 98.5 F 79 16 87/47 L 85 L O2 Del Method O2 Flow Rate 05/26/25 10:14 05/26/25 10:05 05/26/25 10:05 05/26/25 08:00 05/26/25 08:00 Nasal Cannula 4.5 05/26/25 07:00 Nasal Cannula 4.5 05/26/25 06:45 Nasal Cannula 4.5 05/26/25 06:00 Nasal Cannula 4.5 05/26/25 05:15 05/26/25 05:01 05/26/25 04:56 Nasal Cannula 4.5 05/26/25 04:00 Nasal Cannula 4.5 05/26/25 04:00 Nasal Cannula 4.5 05/26/25 04:00 05/26/25 03:29 Nasal Cannula 4.5 05/26/25 03:15 05/26/25 03:00 05/26/25 02:45 05/26/25 02:30 05/26/25 02:00 Nasal Cannula 4.5 05/26/25 01:01 Nasal Cannula 4.5 05/26/25 01:00 05/26/25 01:00 Nasal Cannula 4.5 05/26/25 00:45 05/26/25 00:30 05/26/25 00:00 05/26/25 00:00 Nasal Cannula 4.5 05/25/25 23:00 Nasal Cannula 4.5 05/25/25 23:00 Nasal Cannula 4.5 05/25/25 22:00 Nasal Cannula 4.5 05/25/25 21:00 Nasal Cannula 4.5 05/25/25 21:00 Nasal Cannula 2 05/25/25 20:15 05/25/25 20:01 Nasal Cannula 2 05/25/25 20:00 05/25/25 20:00 Nasal Cannula 4.5 05/25/25 19:00 Nasal Cannula 4.5 05/25/25 18:07 Nasal Cannula 2 05/25/25 18:00 Nasal Cannula 4.5 05/25/25 17:28 Nasal Cannula 2 05/25/25 17:00 2 05/25/25 16:45 05/25/25 16:37 05/25/25 16:29 05/25/25 16:15 05/25/25 15:58 05/25/25 15:30 05/25/25 15:15 2 05/25/25 15:00 05/25/25 14:45 05/25/25 14:43 2 05/25/25 14:09 2 05/25/25 13:57 05/25/25 13:52 05/25/25 13:50 2 05/25/25 13:02 Nasal Cannula 4 Intake and Output 05/25/25 05/26/25 05/26/25 23:59 07:59 15:59 Intake Total 1325.813 / 1875.813 36 / 63.375 27.375 / 63.375 Output Total 250 / 250 250 / 250 Balance 1075.813 / 1625.813 -214 / -186.625 27.375 / -186.625 Intake: Intake, Total IV Amount 1325.813 / 1875.813 36 / 63.375 27.375 / 63.375 0.9 % Sodium Chloride 1000ML 1, 1000 / 1000 000 ml @ 999 mls/hr IV .Q1H1M ONE Rx#:[id number] Azithromycin 500 mg In 0.9 % 250 / 250 Sodium Chloride 250 ml @ 250 mls/hr IV ONCE ONE Rx#:[id number] Norepinephrine Bitartrate/D5w 8 75.813 / 75.813 36 / 63.375 27.375 / 63.375 mg In 250 ml @ 8 MCG/MIN 15 mls/hr IV .[id number] [facility] Rx#: [id number] Output: Output, Urine Amount 250 / 250 250 / 250 Other: Number of Unmeasured Voids 0 Weight 55.5 kg Patient Weight 05/26/25 23:59 Weight 55.5 kg Laboratory Results - last 24 hr 05/25/25 13:22: WBC 23.7 H*, RBC 3.86 L, Hgb 11.1 L, Hct 35.2 L, MCV 91.2, MCH 28.8, MCHC 31.5 L, RDW 15.9, Plt Count 364, MPV 9.1, Neut % (Auto) 85.9 H, Lymph % (Auto) 5.7 L, [place] % (Auto) 7.3, Eos % (Auto) 0.2, Baso % (Auto) 0.3, Neut # (Auto) 20.4 H, Lymph # (Auto) 1.4, [place] # (Auto) 1.7 H, Eos # (Auto) 0.1, Baso # (Auto) 0.1, Total Counted 100, Neutrophils % (Manual) 82 H, Lymphocytes % (Manual) 14, Monocytes % (Manual) 4, Platelet Estimate Normal, RBC Morphology Normal, Sodium 136, Potassium 4.4, Chloride 95 L, Carbon Dioxide 28, Anion Gap 17.4 H, BUN 23 H, Creatinine 0.90, Estimated Creat Clear 63, Estimated GFR 84, Est GFR ( Amer) 102, Glucose 149 H, Calcium 8.8, Magnesium 1.7, Total Bilirubin 1.2, AST 26, ALT 19, Alkaline Phosphatase 111, Troponin I < 0.01, NT-Pro-B Natriuret Pep 2300 H, Total Protein 7.8, Albumin 4.0, Globulin 3.8 H, Albumin/Globulin Ratio 1.1 05/25/25 13:29: VBG pH 7.30 L, VBG pCO2 57.9 H, VBG pO2 31.9, VBG HCO3 27.7, VBG Total CO2 29.5 H, VBG O2 Saturation 59.3, VBG Base Excess 1.3, VBG Lactic Acid 1.6 05/25/25 13:33: SARS-CoV-2 (PCR) Not detected, Influenza Type A (PCR) Not detected, Influenza Type B (PCR) Not detected, RSV (PCR) Not detected, Rhinovirus (PCR) Detected 05/25/25 17:26: Troponin I < 0.01 05/25/25 19:18: Troponin I < 0.01 05/26/25 06:00: WBC 23.2 H*, RBC 3.84 L, Hgb 11.2 L, Hct 34.5 L, MCV 89.8, MCH 29.2, MCHC 32.5, RDW 15.7, Plt Count 403, MPV 9.6, Neut % (Auto) 90.6 H, Lymph % (Auto) 3.9 L, [place] % (Auto) 3.9, Eos % (Auto) 0.5, Baso % (Auto) 0.2, Neut # (Auto) 21.1 H, Lymph # (Auto) 0.9, [place] # (Auto) 0.9, Eos # (Auto) 0.1, Baso # (Auto) 0.1, Total Counted 100, Neutrophils % (Manual) 94 H, Lymphocytes % (Manual) 5 L, Monocytes % (Manual) 1 L, Platelet Estimate Normal, RBC Morphology Normal, Sodium 138, Potassium 4.3, Chloride 102, Carbon Dioxide 28, Anion Gap 12.3, BUN 31 H D, Creatinine 0.90, Estimated Creat Clear 57, Estimated GFR 84, Est GFR ( Amer) 102, Glucose 176 H, Calcium 8.3 L, Magnesium 2.2 D, Total Bilirubin 0.4, AST 18 D, ALT 14 D, Alkaline Phosphatase 97, Total Protein 7.0, Albumin 3.6, Globulin 3.4 H, Albumin/Globulin Ratio 1.1 I & O for Labs for Last 24 Hours: Intake & Output 12/07/25 12/08/25 12/09/25 12/10/25 23:59 23:59 23:59 23:59 Intake Total 1875.813 / 1875.813 63.375 / 63.375 Output Total 250 / 250 250 / 250 Balance 1625.813 / 1625.813 -186.625 / -186.625 Weight 61.235 kg 55.5 kg Microbiology Reports for the Last 24 Hours: Microbiology 05/26/25 09:50 Sputum - Expectorated Sputum Gram Stain - Final Constitutional: Present mild distress, cachectic, chronically ill appearing, disheveled and cooperative Head: Present atraumatic and normocephalic ENT: Present normal exam Neck: Present normal inspection Respiratory: Present prolonged expiratory phase, rhonchi, wheezes, crackles and normal respiratory effort Cardiac: Present Reg Rate and Rhythm GI: Present soft; Absent distention Skin: Present intact Neuro: Present alert, awake, oriented x 3 and moves all extremities Assessment and Plan *Assessment and plan (1) Septic shock: Status: Acute Category: Medical Code(s): A41.9 - Sepsis, unspecified organism; R65.21 - Severe sepsis with septic shock (2) Pneumonia: Status: Acute Category: Medical Code(s): J18.9 - Pneumonia, unspecified organism (3) (HFpEF) heart failure with preserved ejection fraction: Status: Acute Qualifiers: Heart failure chronicity: acute on chronic Qualified Code(s): I50.33 - Acute on chronic diastolic (congestive) heart failure Category: Medical Code(s): I50.30 - Unspecified diastolic (congestive) heart failure (4) Chronic, continuous use of opioids: Status: Acute Category: Medical Code(s): F11.90 - Opioid use, unspecified, uncomplicated (5) COPD mixed type: Status: Acute Category: Medical Code(s): J44.9 - Chronic obstructive pulmonary disease, unspecified (6) Chronic respiratory failure: Status: Acute Qualifiers: Respiratory failure complication: unspecified whether with hypoxia or hypercapnia Qualified Code(s): J96.10 - Chronic respiratory failure, unspecified whether with hypoxia or hypercapnia Category: Medical Code(s): J96.10 - Chronic respiratory failure, unspecified whether with hypoxia or hypercapnia (7) Protein-calorie malnutrition, moderate: Status: Chronic Category: Medical Code(s): E44.0 - Moderate protein-calorie malnutrition (8) Rhinovirus infection: Status: Acute Category: Medical Code(s): B34.8 - Other viral infections of unspecified site Plan 64-year-old male with severe COPD on chronic oxygen. Increased shortness of breath. Found to be septic shock with initiation of Levophed necessary in the ER. Discussed case with ER provider, request admission to the ICU for further management of septic shock due to respiratory illness. I agreed to admit for further care. Will have pulmonology evaluate in the morning. Anticipate patient will be admitted at least 2 midnights. Continuing Levophed. Continues to require ICU level care problems addressed as follows: Septic shock Multifocal pneumonia secondary to rhino/entero-virus COPD with exacerbation - Continues to require Levophed after arrival to the ICU. Wean as tolerated for MAP greater than 65. On 2 mcg during rounds. Continue to wean as tolerated. - White count remains elevated at 23, hemoglobin 11. Kidney function stable with BUN 31, creatinine 0.9. Repeat CBC, CMP, magnesium ordered for the morning - Previous history of Klebsiella pneumonia with resistance to cephalosporins. Transition to Levaquin 750 mg daily awaiting sputum cultures. - Continue supplemental oxygen for goal sats greater 90%. Currently requiring 4 to 5 L - Blood and sputum culture pending - DuoNebs every 4 hours scheduled - Budesonide twice daily Anxiety/depression: Continue home BuSpar 10 mg twice daily, Cymbalta 60 mg twice daily Neuropathy/chronic pain/opiate use disorder: Continue home gabapentin 600 mg 3 times a day, oxycodone 7.5 mg 3 times a day Cardiomyopathy: Holding carvedilol 3.125 mg twice daily, Entresto twice daily in the setting of hypotension and septic shock Full code Lovenox 40 mg subcu daily Regular diet ICU/Critical care attestation This patient is critically ill with 35 minutes devoted solely to this patient managing life/organ supporting interventions that required physician assessment. This includes time spent making adjustments in ventilator settings, IV fluid administration, titration of pressors, adjustments of medications, discussion of patient with consultants and other care providers as well as updating patient and/or family (if patient by virtue of his/her condition is unable to participate in decision making). This does not include time spent performing separately billed procedures. Time is not concurrent with that of other providers.
[2025-05-26] MEDS: LEVOFLOXACIN/D5W 750 MG/150 ML 750 MG/150 ML PIGGYBACK 100 MG IV (10:57)
--- NOTE | 2025-05-26 13:38 | HMH.PHAAMS2 ---
- Antimicrobial Stewardship Review culture & sensitivity review Stewardship interventions: culture & sensitivity review (CURRENTLY ON LEVAQUIN 750 MG, WBC ELEVATED AT 23.2K, AFEBRILE, CX PENDING.)
--- NOTE | 2025-05-26 14:36 | PC.NURSE ---
Notified Dr. Arrington of patient blood pressure running 80s/40s with map of 50s. Patient is sleeping and asymptomatic at this time. Dr. Arrington is okay with not starting patient back on levophen. If patients map drops below 50 he wants to turn the levophed back on at a low dose of 2mcg.
[2025-05-26] MEDS: LACTATED RINGERS 1000ML 1,000 ML 250 ML IV (16:55)
[2025-05-26] MEDS: BUDESONIDE 0.5MG/2ML NEB 0.5 MG IH (18:17)
[2025-05-26] MEDS: ACETAMINOPHEN 325MG TAB 650 MG PO (21:29)
[2025-05-26] MEDS: PANTOPRAZOLE 40MG TABLET 40 MG PO (21:30)
[2025-05-27] VITALS (24 sets, daily range): BP systolic 85–119; BP diastolic 48–69; PULSE 58–82; RESP 16–23; TEMP 36.3–36.8; O2SAT 87–94; BMI 16.0
[2025-05-27] MEDS: IPRATROPIUM/ALBUTEROL 3 ML NEB IH ×6 (02:08→22:23)
[2025-05-27] MEDS: BUDESONIDE 0.5MG/2ML NEB 0.5 MG IH ×2 (06:31→18:27)
[2025-05-27 06:49] LABS: Hematocrit 29.5 % (42.0-52.0); Immature Granulocytes % 0.9 %; Mean Corpuscular HGB Conc 30.8 g/dL (31.8-35.4); Mean Corpuscular Hemoglobin 27.7 pg (27.0-31.2); Mean Corpuscular Volume 89.9 fl (80-94); Nucleated Red Blood Cells % 0 %; Platelet Count 362 K/mm3 (142-424); Red Blood Count 3.28 M/mm3 (4.60-6.20); Red Cell Distribution Width-SD 52.0 fL; White Blood Count 17.4 K/mm3 (4.8-10.8)
[2025-05-27 07:01] LABS: Chloride 98 mmol/L (98-107)
[2025-05-27 07:02] LABS: Albumin Level 3.2 g/dl (3.5-5.0); Potassium 4.2 mmoL/L (3.5-5.1); Sodium 137 mmol/L (136-145)
[2025-05-27 07:05] LABS: Alanine Aminotransferase 13 U/L (12-78); Albumin/Globulin Ratio 0.9 (1.1-1.8); Alkaline Phosphatase 92 U/L (38-126); Anion Gap 14.2 mEq/L (5-15); Aspartate Amino Transferase 21 U/L (17-59); Bilirubin,Total 0.2 mg/dl (0.2-1.3); Blood Urea Nitrogen 32 mg/dl (9-20); Calcium 8.3 mg/dl (8.4-10.2); Carbon Dioxide 29 mmol/L (22.0-30.0); Creatinine Clearance Estimated 55 mL/min (50-200); Creatinine,Serum 0.80 mg/dl (0.66-1.25); Estimated Glomerular Filt Rate 97 ml/min (>60); GFR (African American) 117 ML/MIN (>60); Globulin 3.4 g/dL (1.3-3.2); Glucose 160 mg/dl (74-100); Magnesium 2.4 mg/dl (1.6-2.3); Total Protein,Serum 6.6 g/dl (6.3-8.2)
[2025-05-27 07:25] LABS: Hemoglobin 9.1 g/dL (14.1-18.0)
--- NOTE | 2025-05-27 09:18 | HMH.PHAAMS2 ---
- Antimicrobial Stewardship Review culture & sensitivity review Stewardship interventions: culture & sensitivity review (CURRENTLY ON LEVAQUIN FOR PNA, WBC DECREASED FROM 23.7K TO 17.4K, AFEBRILE. SPUTUM CX PENDING.)
[2025-05-27] MEDS: GABAPENTIN 400MG CAPSULE 400 MG PO ×3 (09:19→20:51)
[2025-05-27] MEDS: OXYCODONE 7.5MG W/APAP 325MG TABLET 1 EACH PO ×2 (10:44→20:51)
[2025-05-27] MEDS: LEVOFLOXACIN/D5W 750 MG/150 ML 750 MG/150 ML PIGGYBACK 100 MG IV (10:44)
--- NOTE | 2025-05-27 10:49 | EXP.PULM.CON ---
History of Present Illness History of present illness: Mr. Turk is a 64-year-old male prior smoker greater than [id number] smoking history carries a diagnosis of COPD presented to the ER with worsening respiratory disease and pulmonary was called for further evaluation and management. [facility] Disclaimer: The information contained in this section may have been updated after the patient was seen, as this information can be updated by other users. Medical History (Updated 05/27/25 @ 10:54 by Cait Marcelo MD) Acute and chronic respiratory failure with hypoxia Viral pneumonia Rhinovirus infection Prediabetes (HFpEF) heart failure with preserved ejection fraction Esophageal thickening Solid nodule of lung greater than 8 mm in diameter COPD mixed type Nodule of left lung SIRS (systemic inflammatory response syndrome) Postherpetic trigeminal neuralgia Encounter for screening for malignant neoplasm of lung in current smoker with 30 pack year history or greater Abnormal screening computed tomography (CT) of chest Nonischemic cardiomyopathy Diastolic dysfunction Elevated left ventricular end-diastolic pressure (LVEDP) Non-STEMI (non-ST elevated myocardial infarction) Emphysema/COPD Pneumonia due to gram-negative bacteria Low body mass index (BMI) COPD (chronic obstructive pulmonary disease) with acute bronchitis Upper respiratory infection HLD (hyperlipidemia) Tobacco dependence syndrome Chest pain Cardiomyopathy Preoperative clearance Poisoning by opiate or related narcotic Atypical pneumonia Postherpetic neuralgia Left against medical advice HTN (hypertension) Elevated C-reactive protein CAP (community acquired pneumonia) COPD (chronic obstructive pulmonary disease) Pain, eye, right Herpes zoster ophthalmicus, right eye Eye pain Shingles Neuropathy Surgical History H/O cervical spine surgery H/O cardiac catheterization Family History Mother Lung cancer Family history of acute congestive heart failure Father Lung cancer Family history of acute congestive heart failure Social History Smoking Status: Current every day smoker tobacco type: cigarettes packs per day: 1 smoking status stop date: december 2021 second hand exposure: Yes alcohol intake: former substance use type: denies use current occupational status: disabled Travel in the last 8 weeks?: None household members: children housing: house marital status: current occupational exposures/hazards: No pets and animals: No caffeine: Yes Have you lived/traveled outside [place] in past 30 days?: No Contact w/someone who lives/traveled outside US past 30 days?: No Exposure to someone with infectious disease in past 14 days?: No Do you have a fever (greater than 100.4 F or 38 C)?: No Have you tested positive for COVID-19?: No Exposed to someone with COVID-19 in past 14 days?: No Do you have a sore throat?: No Do you have a cough?: No Do you have any weakness?: No Do you have any diarrhea?: No Are you experiencing any unusual bleeding?: No Do you have any muscle aches/pain?: No Do you have any abdominal pain?: No Are you experiencing loss of taste or smell?: No Review of Systems Constitutional Constitutional: Reports anorexia, Reports body ache(s) and Reports fatigue Eyes Eyes: Denies eye discharge, Denies dry eyes, Denies irritation and Denies itchy eyes ENT Ears, Nose, Mouth, and Throat: Denies epistaxis, Denies facial pain, Denies lip swelling and Denies throat swelling *Cardiovascular Cardiovascular: Reports dyspnea and Reports dyspnea on exertion *Respiratory Respiratory: Reports change in phlegm color, Reports chest congestion, Reports cough, Reports dyspnea, Reports dyspnea on exertion, Reports excessive phlegm production, Denies hemoptysis, Denies pain on inspiration, Denies pain with cough and Reports wheezing *Gastrointestinal Gastrointestinal: Denies abdominal pain, Denies belching and Denies cramping *Musculoskeletal Musculoskeletal: Reports back pain, Reports myalgias and Reports other (No small joint swelling or Pain) Psychiatric Psychiatric: Denies homicidal ideation and Denies suicidal ideation Endocrine Endocrine: Reports fatigue and Denies heat intolerance Hematologic/Lymphatic Hematologic/Lymphatic: Denies easy bleeding and Denies lymphadenopathy Allergic/Immunologic Allergic/Immunologic: Denies itchy eyes, Denies lip swelling, Denies throat swelling and Reports wheezing Pulmonology Exam Inpatient Vital signs and Labs for Last 24 Hours: Temp Pulse Resp BP Pulse Ox O2 Del Method O2 Flow Rate 97.3 F L 65 22 112/51 L 87 L Nasal Cannula 4.5 05/27/25 08:01 05/27/25 09:21 05/27/25 08:01 05/27/25 08:01 05/27/25 08:01 05/27/25 08:01 05/27/25 08:01 FiO2 36 05/26/25 22:18 Laboratory Results - last 24 hr 05/27/25 05:15: WBC 17.4 H, RBC 3.28 L, Hgb 9.1 L D, Hct 29.5 L, MCV 89.9, MCH 27.7, MCHC 30.8 L, RDW 15.7, Plt Count 362, MPV 9.8, Neut % (Auto) 90.2 H, Lymph % (Auto) 3.7 L, [place] % (Auto) 5.1, Eos % (Auto) 0.0 L, Baso % (Auto) 0.1, Neut # (Auto) 15.7 H, Lymph # (Auto) 0.7, [place] # (Auto) 0.9, Eos # (Auto) 0.0, Baso # (Auto) 0.0, Sodium 137, Potassium 4.2, Chloride 98, Carbon Dioxide 29, Anion Gap 14.2, BUN 32 H, Creatinine 0.80, Estimated Creat Clear 55, Estimated GFR 97, Est GFR ( Amer) 117, Glucose 160 H, Calcium 8.3 L, Magnesium 2.4 H, Total Bilirubin 0.2, AST 21, ALT 13, Alkaline Phosphatase 92, Total Protein 6.6, Albumin 3.2 L D, Globulin 3.4 H, Albumin/Globulin Ratio 0.9 L I & O for Labs for Last 24 Hours: Intake & Output 05/24/25 05/25/25 05/26/25 05/27/25 23:59 23:59 23:59 23:59 Intake Total 1875.813 / 8480.907 3006.973 / 2714.973 240 / 240 Output Total 250 / 250 900 / 900 751 / 751 Balance 1625.813 / 7990.092 9343.973 / 1814.973 -511 / -511 Weight 135 lb 122 lb 5.705 oz 118 lb 13.266 oz Microbiology Reports for the Last 24 Hours: Microbiology 05/25/25 14:30 Blood Blood Culture - Preliminary NO GROWTH AFTER 24 HOURS 05/25/25 14:25 Blood Blood Culture - Preliminary NO GROWTH AFTER 24 HOURS 05/26/25 09:50 Sputum - Expectorated Sputum Gram Stain - Final Constitutional: Present moderate distress Head: Present normocephalic and atraumatic ENT: Present normal exam, normal oropharynx and mucous membranes moist Neck: Present normal inspection and full ROM Respiratory: Present prolonged expiratory phase, respiratory distress, rhonchi, wheezes, crackles and able to speak in complete sentences; Absent normal respiratory effort Cardiac: Present S1/S2, Tachycardia and radial pulses present GI: Present soft and distention; Absent tenderness or guarding Skin: Present intact; Absent cyanosis or jaundice Neuro: Present alert, awake and oriented x 3 Extremities: Present normal inspection; Absent clubbing or cyanosis Psychiatric: Present normal affect and cooperative Meds Home Medications and Allergies Home Medications ?Medication ?Instructions ?Recorded ?Confirmed ?Type oxycodone-acetaminophen 7.5 mg-325 1 tab PO TID 10/20/24 05/26/25 History mg tablet duloxetine 60 mg capsule,delayed 60 mg PO BID 90 days #180 caps 10/23/24 05/26/25 Rx release carvedilol 3.125 mg tablet 3.125 mg PO BID 11/03/24 05/26/25 History furosemide 20 mg tablet (Lasix) 20 mg PO DAILY #90 tabs 02/15/25 05/26/25 Rx gabapentin 600 mg tablet 600 mg PO TID #20 tabs 03/03/25 05/26/25 Rx atorvastatin 20 mg tablet 20 mg PO DAILY 05/21/25 05/26/25 History buspirone 10 mg tablet 10 mg PO BID 05/26/25 05/26/25 History ipratropium 0.5 mg-albuterol 3 mg 3 ml inhalation QIDP PRN Shortness 05/26/25 05/26/25 History (2.5 mg base)/3 mL nebulization Of Breath soln sacubitril 24 mg-valsartan 26 mg 1 tab PO BID 05/26/25 05/26/25 History tablet tiotropium 2.5 mcg-olodaterol 2.5 2 puff inhalation DAILY 05/26/25 05/26/25 History mcg/actuation mist for inhalation (Stiolto Respimat) New Prescriptions to Start Prescriptions: Allergies Allergy/AdvReac Type Severity Reaction Status Date / Time methocarbamol (From ROBAXIN) Allergy Unknown Shakiness Verified 05/21/25 10:41 pregabalin (From LYRICA) Allergy Unknown Shakiness Verified 05/21/25 10:41 methadone Allergy Difficulty Verified 05/21/25 10:41 Breathing ibuprofen AdvReac Cramping Verified 05/21/25 10:41 of the Muscles Results Laboratory Findings 05/27/25 05:15 05/27/25 05:15 Abnormal lab findings: Abnormal Labs 05/25/25 05/25/25 05/26/25 13:22 13:29 06:00 WBC 23.7 H* 23.2 H* RBC 3.86 L 3.84 L Hgb 11.1 L 11.2 L Hct 35.2 L 34.5 L MCHC 31.5 L Neut % (Auto) 85.9 H 90.6 H Lymph % (Auto) 5.7 L 3.9 L Eos % (Auto) Neut # (Auto) 20.4 H 21.1 H [place] # (Auto) 1.7 H Neutrophils % (Manual) 82 H 94 H Lymphocytes % (Manual) 5 L Monocytes % (Manual) 1 L VBG pH 7.30 L VBG pCO2 57.9 H VBG Total CO2 29.5 H Chloride 95 L Anion Gap 17.4 H BUN 23 H 31 H D Glucose 149 H 176 H Calcium 8.3 L Magnesium NT-Pro-B Natriuret Pep 2300 H Albumin Globulin 3.8 H 3.4 H Albumin/Globulin Ratio 05/27/25 05:15 WBC 17.4 H RBC 3.28 L Hgb 9.1 L D Hct 29.5 L MCHC 30.8 L Neut % (Auto) 90.2 H Lymph % (Auto) 3.7 L Eos % (Auto) 0.0 L Neut # (Auto) 15.7 H [place] # (Auto) Neutrophils % (Manual) Lymphocytes % (Manual) Monocytes % (Manual) VBG pH VBG pCO2 VBG Total CO2 Chloride Anion Gap BUN 32 H Glucose 160 H Calcium 8.3 L Magnesium 2.4 H NT-Pro-B Natriuret Pep Albumin 3.2 L D Globulin 3.4 H Albumin/Globulin Ratio 0.9 L Assessment and Plan *Assessment and plan (1) Pneumonia: Status: Acute Category: Medical Code(s): J18.9 - Pneumonia, unspecified organism (2) Acute and chronic respiratory failure with hypoxia: Status: Acute Category: Medical Code(s): J96.21 - Acute and chronic respiratory failure with hypoxia Plan Mr. Turk is a 64-year-old male prior smoker greater than [id number]-iwcr smoking history carries a diagnosis of COPD presented to the ER with worsening respiratory disease and pulmonary was called for further evaluation and management. CT chest upon admission bilateral patchy airspace disease. Prior sputum culture grew Klebsiella and stenotrophomonas sensitive to levofloxacin. Comprehensive respiratory viral PCR panel unable to review. COVID-19 and flu PCR panel and RSV negative. Initially on ceftriaxone that was changed to levofloxacin, currently receiving levofloxacin. Patient also needing vasopressor support upon admission, improving. Patient admits improving respiratory symptoms however continued complaining of cough and productive phlegm. Plan: Continue levofloxacin to complete a total of 7-day course. Follow with final sputum culture results DuoNebs every 4 hours along with Pulmicort every 12 scheduled Incentive spirometry and flutter valve Recommend to discontinue steroids. Continue oxygen supplementation to maintain O2 saturation goal of 90% and above, weaned to 3 L at rest with saturations maintained at 90 to 92%. Continue 3 L at rest and 4-5L NC with exertion # Thank you for involving pulmonary in this patient care. Will continue to follow.
--- NOTE | 2025-05-27 11:42 | EXP.ACUTE.PN ---
Subjective *Date: 05/27/25 *Time: 11:42 Interval history: Feeling little bit better today, oxygen requirement down to 3 L. Improvement in sputum production. Alert and oriented x 4. Afebrile. No nausea or vomiting. Medical Exam Vital signs and Labs for Last 24 Hours: Vital Signs Temp Pulse Pulse Resp BP BP Pulse Ox 05/27/25 11:17 05/27/25 09:35 05/27/25 09:21 65 05/27/25 09:21 64 05/27/25 08:01 97.3 F L 71 22 112/51 L 87 L 05/27/25 08:00 75 90 L 05/27/25 08:00 68 05/27/25 06:55 05/27/25 06:31 61 05/27/25 06:31 59 L 05/27/25 06:00 62 20 103/57 L 94 L 05/27/25 05:04 05/27/25 05:00 58 L 18 97/57 L 90 L 05/27/25 04:00 98.3 F 61 22 85/53 L 92 L 05/27/25 04:00 60 05/27/25 03:17 05/27/25 03:00 68 22 88/52 L 94 L 05/27/25 02:56 64 23 86/51 L 94 L 05/27/25 02:10 61 21 92/48 L 94 L 05/27/25 02:09 91 L 05/27/25 02:08 64 05/27/25 02:08 67 05/27/25 02:00 94 L 05/27/25 01:45 61 22 92 L 05/27/25 01:22 05/27/25 01:00 67 23 106/61 L 91 L 05/27/25 00:04 97.9 F 70 22 104/66 L 92 L 05/27/25 00:00 60 05/26/25 23:11 58 L 90/53 L 91 L 05/26/25 23:07 71 91/57 L 91 L 05/26/25 22:58 05/26/25 22:18 65 05/26/25 22:18 64 05/26/25 22:18 92 L 05/26/25 22:00 64 96/54 L 92 L 05/26/25 21:45 64 91 L 05/26/25 21:00 68 93/57 L 90 L 05/26/25 21:00 05/26/25 20:42 91 L 05/26/25 20:01 65 17 89/59 L 90 L 05/26/25 19:00 97.9 F 64 22 85/54 L 91 L 05/26/25 19:00 05/26/25 18:40 70 05/26/25 18:17 65 05/26/25 18:17 92 L 05/26/25 18:00 59 L 20 87/47 L 91 L 05/26/25 17:02 70 17 89/49 L 95 05/26/25 17:00 05/26/25 16:00 97.4 F L 05/26/25 16:00 65 17 81/46 L 93 L 05/26/25 16:00 97.4 F L 61 18 81/46 L 91 L 05/26/25 16:00 91 L 05/26/25 16:00 66 05/26/25 15:11 87/53 L 05/26/25 15:00 59 L 20 83/39 L 90 L 05/26/25 15:00 05/26/25 14:32 86/44 L 05/26/25 14:30 88/48 L 05/26/25 14:30 61 20 91 L 05/26/25 14:23 86/45 L 05/26/25 14:23 58 L 20 91 L 05/26/25 14:21 83/45 L 05/26/25 14:21 59 L 22 92 L 05/26/25 14:20 81/44 L 05/26/25 14:20 58 L 22 92 L 05/26/25 14:07 64 05/26/25 14:07 64 05/26/25 14:00 60 20 80/43 L 91 L 05/26/25 13:34 94/64 L 05/26/25 13:08 93/45 L 05/26/25 13:00 89/51 L 05/26/25 13:00 62 20 89/51 L 91 L 05/26/25 13:00 05/26/25 12:59 89/54 L 05/26/25 12:57 81/49 L 05/26/25 12:36 86/50 L 05/26/25 12:30 79/48 L 05/26/25 12:00 97.7 F 69 21 98/56 L 91 L 05/26/25 12:00 66 O2 Del Method O2 Flow Rate FiO2 05/27/25 11:17 Nasal Cannula 3 05/27/25 09:35 Nasal Cannula 4.5 05/27/25 09:21 05/27/25 09:21 05/27/25 08:01 Nasal Cannula 4.5 05/27/25 08:00 Nasal Cannula 4.5 05/27/25 08:00 05/27/25 06:55 Nasal Cannula 4.5 05/27/25 06:31 05/27/25 06:31 05/27/25 06:00 05/27/25 05:04 Nasal Cannula 4.5 05/27/25 05:00 05/27/25 04:00 05/27/25 04:00 05/27/25 03:17 Nasal Cannula 4.5 05/27/25 03:00 05/27/25 02:56 05/27/25 02:10 05/27/25 02:09 Nasal Cannula 4 05/27/25 02:08 05/27/25 02:08 05/27/25 02:00 Nasal Cannula 4.5 05/27/25 01:45 05/27/25 01:22 Nasal Cannula 4.5 05/27/25 01:00 05/27/25 00:04 05/27/25 00:00 05/26/25 23:11 05/26/25 23:07 05/26/25 22:58 Nasal Cannula 4.5 05/26/25 22:18 05/26/25 22:18 05/26/25 22:18 Nasal Cannula 4 36 05/26/25 22:00 05/26/25 21:45 05/26/25 21:00 05/26/25 21:00 Nasal Cannula 4.5 05/26/25 20:42 Nasal Cannula 4.5 05/26/25 20:01 05/26/25 19:00 05/26/25 19:00 Nasal Cannula 4.5 05/26/25 18:40 05/26/25 18:17 05/26/25 18:17 Nasal Cannula 4 05/26/25 18:00 Nasal Cannula 4 05/26/25 17:02 Nasal Cannula 4 05/26/25 17:00 Nasal Cannula 4 05/26/25 16:00 05/26/25 16:00 Nasal Cannula 4 05/26/25 16:00 Nasal Cannula 4 05/26/25 16:00 Nasal Cannula 4 05/26/25 16:00 05/26/25 15:11 05/26/25 15:00 Nasal Cannula 4 05/26/25 15:00 Nasal Cannula 4 05/26/25 14:32 05/26/25 14:30 05/26/25 14:30 05/26/25 14:23 05/26/25 14:23 05/26/25 14:21 05/26/25 14:21 05/26/25 14:20 05/26/25 14:20 05/26/25 14:07 05/26/25 14:07 05/26/25 14:00 05/26/25 13:34 05/26/25 13:08 05/26/25 13:00 05/26/25 13:00 05/26/25 13:00 Nasal Cannula 4 05/26/25 12:59 05/26/25 12:57 05/26/25 12:36 05/26/25 12:30 05/26/25 12:00 Nasal Cannula 4 05/26/25 12:00 Intake and Output 05/26/25 05/27/25 05/27/25 23:59 07:59 15:59 Intake Total 1480 / 2714.973 240 / 240 Output Total 650 / 900 750 / 751 Balance 830 / 1814.973 -750 / -511 239 / -511 Intake: Intake, Oral Amount 480 / 1500 240 / 240 Intake, Total IV Amount 1000 / 1214.973 Lactated Ringers 1000ML 1,000 1000 / 1000 ml @ 250 mls/hr IV .Q4H ONE Rx# :[id number] Output: Output, Urine Amount 650 / 900 750 / 751 Other: Number of Unmeasured Voids 0 Number of Bowel Movements 1 1 Weight 53.9 kg Patient Weight 05/27/25 23:59 Weight 53.9 kg Laboratory Results - last 24 hr 05/27/25 05:15: WBC 17.4 H, RBC 3.28 L, Hgb 9.1 L D, Hct 29.5 L, MCV 89.9, MCH 27.7, MCHC 30.8 L, RDW 15.7, Plt Count 362, MPV 9.8, Neut % (Auto) 90.2 H, Lymph % (Auto) 3.7 L, [place] % (Auto) 5.1, Eos % (Auto) 0.0 L, Baso % (Auto) 0.1, Neut # (Auto) 15.7 H, Lymph # (Auto) 0.7, [place] # (Auto) 0.9, Eos # (Auto) 0.0, Baso # (Auto) 0.0, Sodium 137, Potassium 4.2, Chloride 98, Carbon Dioxide 29, Anion Gap 14.2, BUN 32 H, Creatinine 0.80, Estimated Creat Clear 55, Estimated GFR 97, Est GFR ( Amer) 117, Glucose 160 H, Calcium 8.3 L, Magnesium 2.4 H, Total Bilirubin 0.2, AST 21, ALT 13, Alkaline Phosphatase 92, Total Protein 6.6, Albumin 3.2 L D, Globulin 3.4 H, Albumin/Globulin Ratio 0.9 L I & O for Labs for Last 24 Hours: Intake & Output 05/24/25 05/25/25 05/26/25 05/27/25 23:59 23:59 23:59 23:59 Intake Total 1875.813 / 3436.652 8092.973 / 2714.973 240 / 240 Output Total 250 / 250 900 / 900 751 / 751 Balance 1625.813 / 8680.116 6533.973 / 1814.973 -511 / -511 Weight 61.235 kg 55.5 kg 53.9 kg Microbiology Reports for the Last 24 Hours: Microbiology 05/25/25 14:30 Blood Blood Culture - Preliminary NO GROWTH AFTER 24 HOURS 05/25/25 14:25 Blood Blood Culture - Preliminary NO GROWTH AFTER 24 HOURS 05/26/25 09:50 Sputum - Expectorated Sputum Gram Stain - Final Constitutional: Present no acute distress, cachectic, chronically ill appearing, disheveled and cooperative Head: Present atraumatic and normocephalic ENT: Present normal exam Neck: Present normal inspection Respiratory: Present prolonged expiratory phase, rhonchi, wheezes, crackles and normal respiratory effort Cardiac: Present Reg Rate and Rhythm GI: Present soft; Absent distention Skin: Present intact Neuro: Present alert, awake, oriented x 3 and moves all extremities Assessment and Plan *Assessment and plan (1) Septic shock: Problem Comment: present on admission Status: Resolved Category: Medical Code(s): A41.9 - Sepsis, unspecified organism; R65.21 - Severe sepsis with septic shock (2) Pneumonia: Status: Acute Category: Medical Code(s): J18.9 - Pneumonia, unspecified organism (3) (HFpEF) heart failure with preserved ejection fraction: Status: Acute Qualifiers: Heart failure chronicity: acute on chronic Qualified Code(s): I50.33 - Acute on chronic diastolic (congestive) heart failure Category: Medical Code(s): I50.30 - Unspecified diastolic (congestive) heart failure (4) Chronic, continuous use of opioids: Status: Acute Category: Medical Code(s): F11.90 - Opioid use, unspecified, uncomplicated (5) COPD mixed type: Status: Acute Category: Medical Code(s): J44.9 - Chronic obstructive pulmonary disease, unspecified (6) Chronic respiratory failure: Status: Acute Qualifiers: Respiratory failure complication: unspecified whether with hypoxia or hypercapnia Qualified Code(s): J96.10 - Chronic respiratory failure, unspecified whether with hypoxia or hypercapnia Category: Medical Code(s): J96.10 - Chronic respiratory failure, unspecified whether with hypoxia or hypercapnia (7) Protein-calorie malnutrition, moderate: Status: Chronic Category: Medical Code(s): E44.0 - Moderate protein-calorie malnutrition (8) Rhinovirus infection: Status: Acute Category: Medical Code(s): B34.8 - Other viral infections of unspecified site Plan 64-year-old male with severe COPD on chronic oxygen. Increased shortness of breath. Found to be septic shock with initiation of Levophed necessary in the ER. Discussed case with ER provider, request admission to the ICU for further management of septic shock due to respiratory illness. I agreed to admit for further care. Will have pulmonology evaluate in the morning. Anticipate patient will be admitted at least 2 midnights. Continuing Levophed. Continues to require ICU level care problems addressed as follows: Septic shock Multifocal pneumonia secondary to rhino/entero-virus COPD with exacerbation - Continues to require Levophed after arrival to the ICU. Wean as tolerated for MAP greater than 65. On 2 mcg during rounds. Continue to wean as tolerated. - White count remains elevated at 7. Hemoglobin 9. Kidney function stable With BUN 32, creatinine 0.8. Repeat CBC, CMP, magnesium ordered for the morning - Previous history of Klebsiella pneumonia with resistance to cephalosporins. Continue Levaquin 750 mg daily for total of 7 days awaiting sputum cultures. - Blood and sputum culture pending - Discussed case with pulmonology, continue supplemental oxygen for goal sats greater than 90%. Currently on 3 L. Discontinue steroids. Continue incentive spirometry with flutter valve. Continue DuoNebs every 4 hours and Pulmicort twice daily. Anxiety/depression: Continue home BuSpar 10 mg twice daily, Cymbalta 60 mg twice daily Neuropathy/chronic pain/opiate use disorder: Continue home gabapentin 600 mg 3 times a day, oxycodone 7.5 mg 3 times a day Cardiomyopathy: Holding carvedilol 3.125 mg twice daily, Entresto twice daily in the setting of hypotension and septic shock Full code Lovenox 40 mg subcu daily Regular diet
--- NOTE | 2025-05-27 12:11 | PC.NURSE ---
Pt left unit with [facility] staff at 1135
--- NOTE | 2025-05-27 15:58 | PC.NURSE ---
PT IS RESTING IN BED. ALERT AND ORIENTED X4. EATING AND DRINKING WELL. AMBULATES TO THE BATHROOM STANDBY ASSIST. PT WILL GET REALLY SOA WHILE AMBULATING. O2 SATURATION HAS MAINTAINED 90-94% ON 3 L NC. LUNG SOUNDS DIMINISHED. ABDOMEN SOFT/NON TENDER WITH ACTIVE BOWEL SOUNDS. NSR ON TELEMETRY. WILL CONTINUE TO MONITOR.
[2025-05-27] MEDS: PANTOPRAZOLE 40MG TABLET 40 MG PO (20:52)
[2025-05-28] VITALS (7 sets, daily range): BP systolic 117–137; BP diastolic 63–80; PULSE 60–80; RESP 14–20; TEMP 36.4–36.6; O2SAT 93–95; BMI 17.9
[2025-05-28] MEDS: IPRATROPIUM/ALBUTEROL 3 ML NEB IH ×3 (02:08→09:47)
[2025-05-28 06:05] LABS: Hematocrit 31.4 % (42.0-52.0); Hemoglobin 9.7 g/dL (14.1-18.0); Immature Granulocytes % 2.2 %; Mean Corpuscular HGB Conc 30.9 g/dL (31.8-35.4); Mean Corpuscular Hemoglobin 27.6 pg (27.0-31.2); Mean Corpuscular Volume 89.2 fl (80-94); Nucleated Red Blood Cells % 0 %; Platelet Count 376 K/mm3 (142-424); Red Blood Count 3.52 M/mm3 (4.60-6.20); Red Cell Distribution Width-SD 51.8 fL; White Blood Count 14.4 K/mm3 (4.8-10.8)
[2025-05-28 06:12] LABS: Chloride 101 mmol/L (98-107)
[2025-05-28 06:13] LABS: Albumin Level 3.4 g/dl (3.5-5.0); Potassium 4.6 mmoL/L (3.5-5.1); Sodium 140 mmol/L (136-145)
[2025-05-28 06:15] LABS: Blood Urea Nitrogen 20 mg/dl (9-20); Creatinine Clearance Estimated 62 mL/min (50-200); Creatinine,Serum 0.70 mg/dl (0.66-1.25); Estimated Glomerular Filt Rate 113 ml/min (>60); GFR (African American) 137 ML/MIN (>60)
[2025-05-28 06:16] LABS: Alanine Aminotransferase 15 U/L (12-78); Albumin/Globulin Ratio 1.0 (1.1-1.8); Alkaline Phosphatase 81 U/L (38-126); Anion Gap 13.6 mEq/L (5-15); Aspartate Amino Transferase 20 U/L (17-59); Bilirubin,Total 0.2 mg/dl (0.2-1.3); Calcium 8.4 mg/dl (8.4-10.2); Carbon Dioxide 30 mmol/L (22.0-30.0); Globulin 3.3 g/dL (1.3-3.2); Glucose 103 mg/dl (74-100); Total Protein,Serum 6.7 g/dl (6.3-8.2)
[2025-05-28] MEDS: BUDESONIDE 0.5MG/2ML NEB 0.5 MG IH (06:26)
[2025-05-28 06:30] LABS: Magnesium 2.3 mg/dl (1.6-2.3)
--- NOTE | 2025-05-28 08:44 | P.DS_ITS ---
General Admission date:: 05/25/25 Discharge date: 05/28/25 HPI HPI HPI: Mr. Turk is a 64-year-old male with severe COPD on chronic oxygen who continues to smoke. Presented to the ER with complaint of feeling short of breath. Feels like his lungs are full of fluid . Normally wears 2 to 4 L of oxygen at home at baseline. On arrival to the ER, patient found to be hypotensive necessitating 4 to 5 L of oxygen for sats greater 90%. Symptoms have worsened over the past 2 to 3 days. Denies any fever. Workup in the ER, found to be positive for rhinovirus. CT with multifocal airspace disease. White count elevated at 23. Medicine consulted for admission and further management of septic shock secondary to multifocal pneumonia Hospital Course Hospital Course Hospital Course: 64-year-old male with severe COPD on chronic oxygen. Increased shortness of breath. Found to be septic shock with initiation of Levophed necessary in the ER. Discussed case with ER provider, request admission to the ICU for further management of septic shock due to respiratory illness. I agreed to admit for further care. Pulmonology consulted to assist with care. Patient's symptoms defervesced. Blood pressure stabilized and was able to wean off Levophed. Improved to baseline oxygen by day of discharge. Stable discharge home with close follow-up as an outpatient. Problems addressed as follows: Septic shock, present on admission Multifocal pneumonia secondary to rhino/entero-virus with suspected bacterial pneumonia superimposed. Present on admission COPD with exacerbation -Presented with leukocytosis, hypotension, pneumonia on chest imaging, positive respiratory panel for rhinovirus. Initially necessitated Levophed to maintain stable blood pressure. Weaned off pressors at least 36 hours prior to discharge. White count elevated in the 20s on admission. Improved to the teens by discharge. Kidney function and electrolytes remained stable. Previous history of Klebsiella pneumonia with resistance to cephalosporins. -Blood and sputum cultures remained negative at time of discharge, still pending final results. Discussed case with pulmonology, recommend continuing supplemental oxygen for goal sats greater 90%. Patient weaned to his baseline 2 L. Steroids were discontinued. Continue DuoNebs every 4-6 hours at home as needed. Resume Stiolto inhaler. Complete 7 days total of antibiotics with transition to Levaquin based on previous Klebsiella cultures resistant to cephalosporins. Follow-up with pulmonology in a week in the clinic. Anxiety/depression: Continue home BuSpar 10 mg twice daily, Cymbalta 60 mg twice daily Neuropathy/chronic pain/opiate use disorder: Continue home gabapentin 600 mg 3 times a day, oxycodone 7.5 mg 3 times a day Cardiomyopathy: Holding carvedilol 3.125 mg twice daily, Entresto twice daily in the setting of hypotension and septic shock while admitted. Blood pressure normalized by day of discharge resume low-dose carvedilol and Entresto at discharge for cardiomyopathy. Total time spent on discharge 34 minutes in counseling, documentation, chart review, and direct care with patient. Exam Data for Last 24 hours Vital signs and Labs for Last 24 Hours: Temp Pulse Resp BP Pulse Ox O2 Del Method O2 Flow Rate 97.6 F 72 16 128/72 95 Nasal Cannula 3 05/28/25 08:00 05/28/25 08:00 05/28/25 08:00 05/28/25 08:00 05/28/25 08:00 05/28/25 08:00 05/28/25 08:00 FiO2 36 05/26/25 22:18 Laboratory Results - last 24 hr 05/28/25 05:40: WBC 14.4 H, RBC 3.52 L, Hgb 9.7 L, Hct 31.4 L, MCV 89.2, MCH 27.6, MCHC 30.9 L, RDW 15.8, Plt Count 376, MPV 9.3, Neut % (Auto) 85.4 H, Lymph % (Auto) 6.1 L, [place] % (Auto) 6.1, Eos % (Auto) 0.0 L, Baso % (Auto) 0.2, Neut # (Auto) 12.3 H, Lymph # (Auto) 0.9, [place] # (Auto) 0.9, Eos # (Auto) 0.0, Baso # (Auto) 0.0, Sodium 140, Potassium 4.6, Chloride 101, Carbon Dioxide 30, Anion Gap 13.6, BUN 20 D, Creatinine 0.70, Estimated Creat Clear 62, Estimated GFR 113, Est GFR ( Amer) 137, Glucose 103 H, Calcium 8.4, Magnesium 2.3, Total Bilirubin 0.2, AST 20, ALT 15, Alkaline Phosphatase 81, Total Protein 6.7, Albumin 3.4 L, Globulin 3.3 H, Albumin/Globulin Ratio 1.0 L I & O for Last 24 hours: Intake & Output 05/25/25 05/26/25 05/27/25 05/28/25 23:59 23:59 23:59 23:59 Intake Total 1875.813 / 9323.202 7451.973 / 2714.973 750 / 870 120 / 120 Output Total 250 / 250 900 / 900 751 / 751 0 / 0 Balance 1625.813 / 8185.436 5124.973 / 1814.973 -1 / 119 120 / 120 Weight 61.235 kg 55.5 kg 53.9 kg 60.2 kg Microbiology Reports for the Last 24 Hours: Microbiology 05/26/25 09:50 Sputum - Expectorated Sputum Gram Stain - Final 05/26/25 09:50 Sputum - Expectorated Sputum Sputum Culture - Preliminary 05/25/25 14:25 Blood Blood Culture - Preliminary NO GROWTH AFTER 48 HOURS 05/25/25 14:30 Blood Blood Culture - Preliminary NO GROWTH AFTER 48 HOURS Constitutional Constitutional: no acute distress, cachectic, chronically ill appearing and cooperative *Routine HEENT Exam Head: Present normocephalic Eye: Present EOMI and PERRL ENT: Present mucous membranes moist Comments: Loss of periorbital and perioral fat; bitemporal wasting *Routine Neck Exam Neck: Present supple; Absent lymphadenopathy *Routine Respiratory Exam Respiratory: Present prolonged expiratory phase and rhonchi; Absent accessory muscle use, wheezes or crackles *Routine Cardiovascular Exam Cardiovascular: Present RRR *Routine Abdominal Exam Abdominal: Present soft and normoactive bowel sounds; Absent tenderness *Routine Rectal Exam Patient deferred: visual exam *Routine Exam Patient deferred: penile exam *Routine Extremities Exam Extremities: Absent cyanosis, clubbing or edema Comments: Sarcopenia, thin extremities *Routine Skin Exam Skin: Present warm; Absent rash *Routine Neurological Exam Neurological: Present alert, oriented X3 and moving all extremities; Absent altered mental status Results Data Completed and Pending Labs on day of discharge: Labs from last 24 hours 05/28/25 05:40 WBC 14.4 H RBC 3.52 L Hgb 9.7 L Hct 31.4 L MCV 89.2 MCH 27.6 MCHC 30.9 L RDW 15.8 Plt Count 376 MPV 9.3 Neut % (Auto) 85.4 H Lymph % (Auto) 6.1 L [place] % (Auto) 6.1 Eos % (Auto) 0.0 L Baso % (Auto) 0.2 Neut # (Auto) 12.3 H Lymph # (Auto) 0.9 [place] # (Auto) 0.9 Eos # (Auto) 0.0 Baso # (Auto) 0.0 Sodium 140 Potassium 4.6 Chloride 101 Carbon Dioxide 30 Anion Gap 13.6 BUN 20 D Creatinine 0.70 Estimated Creat Clear 62 Estimated GFR 113 Est GFR ( Amer) 137 Glucose 103 H Calcium 8.4 Magnesium 2.3 Total Bilirubin 0.2 AST 20 ALT 15 Alkaline Phosphatase 81 Total Protein 6.7 Albumin 3.4 L Globulin 3.3 H Albumin/Globulin Ratio 1.0 L Preliminary micro results at discharge 05/26/25 09:50 Sputum Culture - Preliminary Sputum - Expectorated Sputum 05/25/25 14:25 Blood Culture - Preliminary Blood NO GROWTH AFTER 48 HOURS 05/25/25 14:30 Blood Culture - Preliminary Blood NO GROWTH AFTER 48 HOURS DS: Diagnosis Discharge Diagnosis (1) Septic shock: Status: Resolved Code(s): A41.9 - Sepsis, unspecified organism; R65.21 - Severe sepsis with septic shock Problem details: present on admission (2) Pneumonia: Status: Acute Code(s): J18.9 - Pneumonia, unspecified organism (3) (HFpEF) heart failure with preserved ejection fraction: Status: Acute Code(s): I50.30 - Unspecified diastolic (congestive) heart failure Qualifiers: Heart failure chronicity: acute on chronic Qualified Code(s): I50.33 - Acute on chronic diastolic (congestive) heart failure (4) Chronic, continuous use of opioids: Status: Acute Code(s): F11.90 - Opioid use, unspecified, uncomplicated (5) COPD mixed type: Status: Acute Code(s): J44.9 - Chronic obstructive pulmonary disease, unspecified (6) Chronic respiratory failure: Status: Acute Code(s): J96.10 - Chronic respiratory failure, unspecified whether with hypoxia or hypercapnia Qualifiers: Respiratory failure complication: unspecified whether with hypoxia or hypercapnia Qualified Code(s): J96.10 - Chronic respiratory failure, unspecif ied whether with hypoxia or hypercapnia (7) Protein-calorie malnutrition, moderate: Status: Chronic Code(s): E44.0 - Moderate protein-calorie malnutrition (8) Rhinovirus infection: Status: Acute Code(s): B34.8 - Other viral infections of unspecified site Meds Home Medications and Allergies Home Medications ?Medication ?Instructions ?Recorded ?Confirmed ?Type oxycodone-acetaminophen 7.5 mg-325 1 tab PO TID 05/26/25 History mg tablet duloxetine 60 mg capsule,delayed 60 mg PO BID 90 days #180 caps 10/23/24 05/26/25 Rx release carvedilol 3.125 mg tablet 3.125 mg PO BID 11/03/24 History furosemide 20 mg tablet (Lasix) 20 mg PO DAILY #90 tab s 02/15/25 05/26/25 Rx Held on 05/28/25. Instructions: Resume on 06/01/25. hold until complete antibiotics gabapentin 600 mg tablet 600 mg PO TID #20 tabs 03/0305/26/25 Rx atorvastatin 20 mg tablet 20 mg PO DAILY 05/21/2505/17 History buspirone 10 mg tablet 10 mg PO BID 05/26/25 History ipratropium 0.5 mg-albuterol 3 mg 3 ml inhalation QIDP PRN Shortness 05/26/25 05/26/25 History (2.5 mg base)/3 mL nebulization Of Breath soln sacubitril 24 mg-valsartan 26 mg 1 tab PO BID 05/26/25 05/26/25 History tablet tiotropium 2.5 mcg-olodaterol 2.5 2 puff inhalation DA MARCELO 05/26/25 05/26/25 History mcg/actuation mist for inhalation (Stiolto Respimat) levofloxacin 750 mg tablet 750 mg PO 1100 4 days #4 ta bs 05/28/25 Rx New Prescriptions to Start Prescriptions: levofloxacin Kota Arrington Allergies Allergy/AdvReac Type Severity Reaction Status Date / Time methocarbamol (From ROBAXIN) Allergy Unknown Shakiness Verified 05/21/25 10:41 pregabalin (From LYRICA) Allergy Unknown Shakiness Verified 05/21/25 10:41 methadone Allergy Difficulty Verified 05/21/25 10:41 Breathing ibuprofen AdvReac Cramping Verified 05/21/25 10:41 of the Muscles Discharge Plan Disposition Patient Disposition: Home, Self-Care Condition: Fair Discharge Order Discharge Orders: Discharge Order (Routine); Ordered 05/28/25 Ordered By: Kota Arrington Follow up Plan Follow up with: Aldo Simmons APRN [Primary Care Provider, [facility]] - Enter time for follow up Cait Marcelo MD [Physician, Pulmonology] - Enter time for follow up Prescriptions/Medication Reconciliation: New levofloxacin 750 mg Tablet 750 mg PO 1100 4 Days Qty: 4 0RF Continued atorvastatin 20 mg tablet 20 mg PO DAILY oxycodone-acetaminophen 7.5-325 mg tablet 1 tab PO TID duloxetine 60 mg capsule,delayed release(DR/EC) 60 mg PO BID 90 Days Qty: 180 3RF carvedilol 3.125 mg tablet 3.125 mg PO BID gabapentin 600 mg tablet 600 mg PO TID Qty: 20 0RF buspirone 10 mg tablet 10 mg PO BID sacubitril-valsartan 24-26 mg tablet 1 tab PO BID ipratropium-albuterol 0.5 mg-3 mg(2.5 mg base)/3 mL solution for nebulization 3 ml inhalation QIDP PRN (Reason: Shortness Of Breath) Stiolto Respimat 2.5-2.5 mcg/actuation mist 2 puff inhalation DAILY Held furosemide [Lasix] 20 mg tablet 20 mg PO DAILY Qty: 90 1RF Hold Instructions: Resume on 06/01/25. hold until complete antibiotics Problem Reconciliation Problems Reviewed?: Yes Patient Discharge Instructions ACTIVITY: Continue current activity DIET: continue same diet Patient Instructions: Pneumonia in Adults, DI for Sepsis in Adults, DI for Respiratory Failure, Stop Light Pneumonia, Stop Light COPD, Stop Light Infection Print Language: Citizen Of [place] Providers Primary Care Provider: Aldo Simmons Admit Provider: Kota Arrington Attending Provider: Kota Arrington
--- NOTE | 2025-05-28 08:58 | HMH.PHAAMS2 ---
- Antimicrobial Stewardship Review culture & sensitivity review Stewardship interventions: culture & sensitivity review (CURRENTLY ON LEVAQUIN FOR PNA, WBC DECREASED FROM 23.7K TO 14.4K TODAY. AFEBRILE.)
--- NOTE | 2025-05-28 09:23 | P.PN_ITS ---
Subjective *Date: 05/28/25 *Time: 10:24 Interval history: No acute respiratory events overnight. Improving oxygen requirements. Pulmonology Exam Inpatient Vital signs and Labs for Last 24 Hours: Temp Pulse Resp BP Pulse Ox O2 Del Method O2 Flow Rate 97.6 F 72 16 128/72 95 Nasal Cannula 3 05/28/25 08:00 05/28/25 08:00 05/28/25 08:00 05/28/25 08:00 05/28/25 08:00 05/28/25 08:00 05/28/25 08:00 FiO2 36 05/26/25 22:18 Laboratory Results - last 24 hr 05/28/25 05:40: WBC 14.4 H, RBC 3.52 L, Hgb 9.7 L, Hct 31.4 L, MCV 89.2, MCH 27.6, MCHC 30.9 L, RDW 15.8, Plt Count 376, MPV 9.3, Neut % (Auto) 85.4 H, Lymph % (Auto) 6.1 L, [place] % (Auto) 6.1, Eos % (Auto) 0.0 L, Baso % (Auto) 0.2, Neut # (Auto) 12.3 H, Lymph # (Auto) 0.9, [place] # (Auto) 0.9, Eos # (Auto) 0.0, Baso # (Auto) 0.0, Sodium 140, Potassium 4.6, Chloride 101, Carbon Dioxide 30, Anion Gap 13.6, BUN 20 D, Creatinine 0.70, Estimated Creat Clear 62, Estimated GFR 113, Est GFR ( Amer) 137, Glucose 103 H, Calcium 8.4, Magnesium 2.3, Total Bilirubin 0.2, AST 20, ALT 15, Alkaline Phosphatase 81, Total Protein 6.7, Albumin 3.4 L, Globulin 3.3 H, Albumin/Globulin Ratio 1.0 L Temp Pulse Resp BP Pulse Ox O2 Del Method O2 Flow Rate 97.3 F L 65 22 112/51 L 87 L Nasal Cannula 4.5 05/27/25 08:01 05/27/25 09:21 05/27/25 08:01 05/27/25 08:01 05/27/25 08:01 05/27/25 08:01 05/27/25 08:01 FiO2 36 05/26/25 22:18 Laboratory Results - last 24 hr 05/27/25 05:15: WBC 17.4 H, RBC 3.28 L, Hgb 9.1 L D, Hct 29.5 L, MCV 89.9, MCH 27.7, MCHC 30.8 L, RDW 15.7, Plt Count 362, MPV 9.8, Neut % (Auto) 90.2 H, Lymph % (Auto) 3.7 L, [place] % (Auto) 5.1, Eos % (Auto) 0.0 L, Baso % (Auto) 0.1, Neut # (Auto) 15.7 H, Lymph # (Auto) 0.7, [place] # (Auto) 0.9, Eos # (Auto) 0.0, Baso # (Auto) 0.0, Sodium 137, Potassium 4.2, Chloride 98, Carbon Dioxide 29, Anion Gap 14.2, BUN 32 H, Creatinine 0.80, Estimated Creat Clear 55, Estimated GFR 97, Est GFR ( Amer) 117, Glucose 160 H, Calcium 8.3 L, Magnesium 2.4 H, Total Bilirubin 0.2, AST 21, ALT 13, Alkaline Phosphatase 92, Total Protein 6.6, Albumin 3.2 L D, Globulin 3.4 H, Albumin/Globulin Ratio 0.9 L I & O for Labs for Last 24 Hours: Intake & Output 05/25/25 05/26/25 05/27/25 05/28/25 23:59 23:59 23:59 23:59 Intake Total 1875.813 / 1002.244 3079.973 / 2714.973 750 / 870 360 / 360 Output Total 250 / 250 900 / 900 751 / 751 0 / 0 Balance 1625.813 / 3958.046 9850.973 / 1814.973 -1 / 119 360 / 360 Weight 135 lb 122 lb 5.705 oz 118 lb 13.266 oz 132 lb 11.492 oz Intake & Output 05/24/25 05/25/25 05/26/25 05/27/25 23:59 23:59 23:59 23:59 Intake Total 1875.813 / 0869.919 2821.973 / 2714.973 240 / 240 Output Total 250 / 250 900 / 900 751 / 751 Balance 1625.813 / 5236.176 2919.973 / 1814.973 -511 / -511 Weight 135 lb 122 lb 5.705 oz 118 lb 13.266 oz Microbiology Reports for the Last 24 Hours: Microbiology 05/26/25 09:50 Sputum - Expectorated Sputum Gram Stain - Final 05/26/25 09:50 Sputum - Expectorated Sputum Sputum Culture - Preliminary 05/25/25 14:25 Blood Blood Culture - Preliminary NO GROWTH AFTER 48 HOURS 05/25/25 14:30 Blood Blood Culture - Preliminary NO GROWTH AFTER 48 HOURS Microbiology 05/25/25 14:30 Blood Blood Culture - Preliminary NO GROWTH AFTER 24 HOURS 05/25/25 14:25 Blood Blood Culture - Preliminary NO GROWTH AFTER 24 HOURS 05/26/25 09:50 Sputum - Expectorated Sputum Gram Stain - Final Constitutional: Present moderate distress Head: Present normocephalic and atraumatic ENT: Present normal exam, normal oropharynx and mucous membranes moist Neck: Present normal inspection and full ROM Respiratory: Present prolonged expiratory phase, respiratory distress, rhonchi, wheezes, crackles and able to speak in complete sentences; Absent normal respiratory effort Cardiac: Present S1/S2, Tachycardia and radial pulses present GI: Present soft and distention; Absent tenderness or guarding Skin: Present intact; Absent cyanosis or jaundice Neuro: Present alert, awake and oriented x 3 Extremities: Present normal inspection; Absent clubbing or cyanosis Psychiatric: Present normal affect and cooperative Assessment and Plan *Assessment and plan (1) Pneumonia: Status: Acute Category: Medical Code(s): J18.9 - Pneumonia, unspecified organism (2) Acute and chronic respiratory failure with hypoxia: Status: Acute Category: Medical Code(s): J96.21 - Acute and chronic respiratory failure with hypoxia Plan Mr. Turk is a 64-year-old male prior smoker greater than [id number] smoking history carries a diagnosis of COPD presented to the ER with worsening respiratory disease and pulmonary was called for further evaluation and management. CT chest upon admission bilateral patchy airspace disease. Prior sputum culture grew Klebsiella and stenotrophomonas sensitive to levofloxacin. Comprehensive respiratory viral PCR panel unable to review. COVID-19 and flu PCR panel and RSV negative. Initially on ceftriaxone that was changed to levofloxacin, currently receiving levofloxacin. Patient also needing vasopressor support upon admission, improving. Patient admits improving respiratory symptoms however continued complaining of cough and productive phlegm. Interval update: No acute respiratory events overnight. Improving leukocytosis. Improving oxygen requirements. Prelim sputum less than 10 WBC, rare gram-positive cocci. Continue to receive levofloxacin. Steroids discontinued. Auscultation continues show wheezing though improved from prior. Improving oxygen comments, 2 L saturating 91 to 92% at rest. Plan: Continue levofloxacin to complete a total of 7-day course. Repeat sputum cult ure today. DuoNebs every 4 hours along with Pulmicort every 12 scheduled, can be weaned from inhaler therapy along with DuoNebs 4 times daily as needed upon Incentive spirometry and flutter valve Continue oxygen supplementation to maintain O2 saturation goal of 90% and above, weaned to 2 L at rest with saturations maintained at 90 to 92%. Continue 2 L at rest and 43-4 L NC with exertion # Thank you for involving pulmonary in this patient care. Will follow the patient in pulmonary clinic 5 to 7 days postdischarge
[2025-05-28] MEDS: GABAPENTIN 400MG CAPSULE 400 MG PO ×2 (09:45→14:33)
[2025-05-28] MEDS: OXYCODONE 7.5MG W/APAP 325MG TABLET 1 EACH PO (09:52)
--- NOTE | 2025-05-28 10:39 | CARE MANAGER ---
Spoke with patient again today. He has Oxygen at home and portable oxgen as well. Someone will bring a tank fo rhim to use going home. He denies any concerns regarding going home at this time.
[2025-05-28] MEDS: ACETAMINOPHEN 325MG TAB 650 MG PO (14:39)
--- NOTE | 2025-06-01 11:13 | SW/DCPLANNER ---
Phoned patient x2. Was not able to leave a message due to his mailbox not being sat up. Wilton Garland
== END 2025-05-28 14:45 | disposition home or self-care (01) | DRG 871 ==
LOC: ER 13:33 → ICU 17:15 → 2ND 05-27 11:17
PROVIDERS: Nurse Practitioner; Admitting Provider Internal Medicine Adolescent Medicine; Emergency Provider Emergency Medicine; PCP Nurse Practitioner Family; Visit Provider Internal Medicine Adolescent Medicine
DX: A41.9 Sepsis, unspecified organism (principal); I50.33 Acute on chronic diastolic (congestive) heart failure; J15.9 Unspecified bacterial pneumonia; R65.21 Severe sepsis with septic shock; J96.21 Acute and chronic respiratory failure with hypoxia; J44.0 Chronic obstructive pulmonary disease with (acute) lower respiratory infection; J44.1 Chronic obstructive pulmonary disease with (acute) exacerbation; I42.9 Cardiomyopathy, unspecified; E44.0 Moderate protein-calorie malnutrition; Z68.1 Body mass index [BMI] 19.9 or less, adult; Z99.81 Dependence on supplemental oxygen; B97.89 Other viral agents as the cause of diseases classified elsewhere; B97.10 Unspecified enterovirus as the cause of diseases classified elsewhere; I95.9 Hypotension, unspecified; F41.9 Anxiety disorder, unspecified; F32.A Depression, unspecified; G62.9 Polyneuropathy, unspecified; G89.29 Other chronic pain; F11.90 Opioid use, unspecified, uncomplicated; E86.0 Dehydration; I11.0 Hypertensive heart disease with heart failure; E78.5 Hyperlipidemia, unspecified; I25.2 Old myocardial infarction; F17.210 Nicotine dependence, cigarettes, uncomplicated
CPT/HCPCS: 36415; 71045; 71260; 80053; 82803; 83735; 83880; 84484; 85007; 85025; 87040; 87070; 87077; 87205; 87631; 89220; 93005; 94640; 94761; 99285; J0456; J0696; J1650; J1956; J2919; J7030; J7050; J7120; Q9967

== ENCOUNTER 2025-06-03 16:04 | Emergency (ER) | payer MEDICARE, MEDICAID, SELFPAY ==
--- OUTSIDE RECORDS SUMMARY | 2025-05-08 02:30 | XMS_ITS | Encounter Summary ---
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 Name Role Phone Provider, No Known Primary Care Provider Unavail able Reason for Visit * Auth/Cert Specialty Diagnoses / Procedures Referred By Contac t Referred To Contact Diagnoses Other (Vertigo) R/O CVA Referral ID Status Reason Start Date Expiration Date Visits Re quested Visits Authorized [id number] 1 1 Encounter Details Date Type Department Care Team (Late st Contact Info) Description 05/08/2025 2:30 AM EST - 05/09/2025 10:21 AM [facility] Hospital Encounter [address] [place] [phone] Ghazala Frost MD [address] [address] Vikas Grossman MD [facility] [address] [id number] Renee Liu MD [address] [phone] Discharge Disposition: Home or Self Care Social History Tobacco Use Types Packs/Day Years Used Date Smoking Tobacco: Former Cigarettes Q uit: 01/2025 Smokeless Tobacco: Never Tobacco Cessation:Counseling Given: No Alcohol Use Standard Drinks/Week Comments Never 0 (1 standard drink = 0.6 oz pur e alcohol) AUDIT-C Answer Date Recorded Q1: How often do you have a drink containing alcohol? Never 05/08/2025 Q2: How many drinks containi ng alcohol do you have on a typical day when you are drinking? Patient does not drink Q3: How often do you have si x or more drinks on one occasion? Never 05/08/2025 Abuse Screen Answer Date Recorded Feels Unsafe at Home or Work/School no 05/08/2025 Feels Threatened by Someone no 04/18 Does Anyone Try to Keep You From Having Contact with Others or Doing Things Outside Your Home? no 05/08/2025 Physical Signs of Abuse Present no 05/08/2025 Housing Stability Answer Date Recorded Current Living Arrangements home 04/18 Potentially Unsafe Housing Conditions Not on ariel e 05/08/2025 Disabilities Answer Date Recorded Difficulty Concentrating, Remembering or Making Decisions no 05/08/2025 Difficulty Managing Errands Independently no 05/08/2025 Sex and Gender Information Value Date Recorded Sex Assigned at Not on file Legal Sex Male 12:29 AM EST Gender Identity Not on file Sexual Orientation Not on file documented as of this encounter Last Filed Vital Signs Vital Sign Reading Time Taken Comments Blood Pressure 130/73 05/09/2025 7:15 AM EST Pulse 80 05/09/2025 10:02 AM EST Temperature 36.2 C (97.2 F) 05/09/2025 7:15 AM EST Respiratory Rate 18 05/09/2025 9:58 AM EST Oxygen Saturation 98% 05/09/2025 10:02 AM EST Inhaled Oxygen Concentration - - Weight 54.1 kg (119 lb 4.8 oz) 05/08/2025 2:31 A M EST Height 188 cm (6' 2 ) 05/08/2025 2:31 AM EST Body Mass Index 15.32 05/08/2025 2:31 AM EST documented in this encounter Functional Status * AUDIT-C (Alcohol Use Disorders Identification Test) Question Answer Date of Assessment Author AUDIT-C Score 0 05/08/2025 3:51 AM Ghazala Anne RN Q1: How often do you have a drink containing alcohol? Never 05/08/2025 3:51 AM Ghazala Conde RN Q2: How many drinks containing alcohol do you have on a typical day when you are drinking? Patient does not drink 05/08/2025 3:51 AM Ghazala Conde RN Q3: How often do you have six or more drinks on one occasion? Never 05/08/2025 3:51 AM Ghazala Conde RN * Suicidal Ideation (Past 1 Month) Question Answer Date of Assessment Author 1. Wish to be (Past 1 Month) No 025 7:48 AM Ghazala Conde RN 2. Non-Specific Active Suici corby Thoughts (Past 1 Month) No 05/08/2025 7:48 AM Terese Conde RN * Calculated C-SSRS Risk Score (Lifetime/Recent) Answer Date of Assessment Author No Risk Indicated 05/08/2025 7:48 AM Ghazala Conde RN * Letts Suicide Severity Rating Scale (Screener/Recent Self-Report) Question Answer Date of Assessment Author 6. Suicidal Behavior (Lifetime) No 7:48 AM Ghazala Conde RN documented as of this encounter Discharge Summaries * Renee Liu MD - 05/09/2025 8:17 AM EST Images from the original note were not included. [facility] DISCHARGE SUMMARY Patient Name: Radu Turk : 1960 Date of Admission: 05/08/2025 2:30 AM Date of Discharge: 05/09/25 Primary Care Physician: Provider, No Known Consults No orders found for last 30 day(s). Hospital Course Presenting Problem: dizziness Active Hospital Problems Diagnosis POA Vertigo [R42] Yes Chronic obstructive pulmonary disease [J44.9] Yes Neuropathy [G62.9] Yes Anemia [D64.9] Yes (HFpEF) heart failure with preserved ejection fraction [I50.30] Yes Resolved Hospital Problems No resolved problems to display. Hospital Course: Radu Turk is a 64 y.o. male with hx of HFpEF, COPD, lung nodule, hypertension, hyperlipidemia, and tobacco use who presented to [facility] ED with concern for vertigo x 1 day. 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 - Stroke team has seen - most likely etiology is BPPV or pre-syncope - PRN meclizine ordered HFpEF, compensated Bradycardia, improved - Continue home meds - Sinus bradycardia noted on telemetry, held Coreg temporarily but can resume at discharge COPD - Stable, continue home inhalers and equivalents Chronic pain Anxiety and depression - Continue home Percocet and Cymbalta - Patient requesting additional treatment for his anxiety - will add low dose Buspar 5 mg BID and have him F/U with PCP closely for further titration/monitoring Discharge Follow Up Recommendations for outpatient labs/diagnostics: F/U with PCP 1 week Day of Discharge HPI: Seen this morning. Feels better. Complains of anxiety and requesting something for it. Review of Systems Gen-no fevers, no chills CV-no chest pain, no palpitations Resp-no cough, no dyspnea GI-no N/V/D, no abd pain Vital Signs: Temp: [97.2 ??F (36.2 ??C)-98 ??F (36.7 ??C)] 97.2 ??F (36.2 ??C) Heart Rate: [61-89] 61 Resp: [18] 18 BP: (109-130)/(61-78) 130/73 Flow (L/min) (Oxygen Therapy): [1-2] 1 Physical Exam: Gen-no acute distress HENT-NCAT, mucous membranes moist CV-RRR, S1 S2 normal, no m/r/g Resp-CTAB, no wheezes or rales Abd-soft, NT, ND, +BS Ext-no edema Neuro-A&Ox3, no focal deficits Skin-no rashes Psych-appropriate mood Pertinent and/or Most Recent Results LAB RESULTS: Lab 05/08/25 0744 WBC 5.68 HEMOGLOBIN 10.9* HEMATOCRIT 34.7* PLATELETS 364 MCV 89.7 Lab 05/08/25 0744 SODIUM 137 POTASSIUM 3.8 CHLORIDE 102 CO2 28.0 ANION GAP 7.0 BUN 11.3 CREATININE 0.71* EGFR 101.2 GLUCOSE 84 CALCIUM 8.5* MAGNESIUM 2.1 HEMOGLOBIN A1C 6.07* Lab 05/08/25 0744 CHOLESTEROL 121 LDL CHOL 64 HDL CHOL 38* TRIGLYCERIDES 100 Brief Urine Lab Results None Microbiology Results (last 10 days) No results found for the last 240 hours. MRI Brain With & Without Contrast Result Date: 05/08/2025 MRI BRAIN W WO CONTRAST Date of Exam: 05/08/2025 11:32 AM EST Indication: Vertigo with gait instability, acute stroke suspected, h/o lung nodule, assess for mets. Comparison: None available. Technique: Routine multiplanar/multisequence sequence images of the brain were obtained before and after theuneventful administration of Vueway. Findings: No acute infarct or focal diffusion restriction. There are couple tiny/punctate scattered T2/FLAIR hyperintense foci in the white matter which are nonspecific and can be seen in the setting of chronic small vessel ischemic change. No intracranial hemorrhage. No intracranial mass. No abnormal intracranial enhancement on the postcontrast sequences. No extra-axial collections. No midline shift or herniation. Normal size and configuration of the ventricles. The major intracranial vascular structures appear unremarkable. Normal appearance of the orbits. The paranasal sinuses and mastoid air cells are clear. The cerebellopontine angles and midline structures are normal. No acute or suspicious bony findings. Impression: No acute intracranial findings. No evidence of intracranial metastatic disease. Electronically Signed: Moisés Schmidt MD 05/08/2025 6:10 PM EST Workstation ID: [id number] Results for orders placed during the hospital encounter of 05/08/25 Adult Transthoracic Echo Complete W/ Cont if Necessary Per Protocol (With Agitated Saline) 05/08/2025 6:28 PM Interpretation Summary Left ventricular systolic function is normal. Calculated left ventricular EF = 56.8% Left ventricular ejection fraction appears to be 56 - 60%. Left ventricular diastolic function was normal. Saline test results are negative. No evidence of intracardiac shunting. No hemodynamically significant valvular abnormalities No prior study for comparison I have personally reviewed the therapy plans: [] PT/OT/ ST Therapy Plans Discharge Details Discharge Medications New Medications Instructions Start Date busPIRone 5 MG tablet Commonly known as: BUSPAR 5 mg, Oral, 2 Times Daily meclizine 25 MG tablet Commonly known as: ANTIVERT 25 mg, Oral, 3 Times Daily PRN Continue These Medications Instructions Start Date atorvastatin 20 MG tablet Commonly known as: LIPITOR 20 mg, Daily buPROPion 75 MG tablet Commonly known as: WELLBUTRIN 75 mg, Daily carvedilol 3.125 MG tablet Commonly known as: COREG 3.125 mg, 2 Times Daily With Meals DULoxetine 60 MG capsule Commonly known as: CYMBALTA 60 mg, 2 Times Daily Entresto 24-26 MG tablet Generic drug: sacubitril-valsartan 1 tablet, Oral, 2 Times Daily, Patient states taking valsartin furosemide 20 MG tablet Commonly known as: LASIX 20 mg, Daily gabapentin 600 MG tablet Commonly known as: NEURONTIN 600 mg, 3 Times Daily ipratropium-albuterol 0.5-2.5 mg/3 ml nebulizer Commonly known as: DUO-NEB 3 mL, 4 Times Daily - RT oxyCODONE-acetaminophen 7.5-325 MG per tablet Commonly known as: PERCOCET 1 tablet, Every 6 Hours PRN Stiolto Respimat 2.5-2.5 MCG/ACT aerosol solution inhaler Generic drug: tiotropium bromide-olodaterol 2 puffs, Daily No Known Allergies Discharge Disposition: Home or Self Care Diet: Hospital: Diet Order Procedures Diet: Regular/House; Fluid Consistency: Thin (IDDSI 0) Standing Status: Standing Number of Occurrences: 1 Diets:: Regular/House Fluid Consistency:: Thin (IDDSI 0) Diet Instructions Diet: Regular/House Diet; Regular (IDDSI 7); Thin (IDDSI 0) Discharge Diet: Regular/House Diet Texture: Regular (IDDSI 7) Fluid Consistency: Thin (IDDSI 0) Activity: Activity Instructions Activity as Tolerated CODE STATUS: Code Status and Medical Interventions: CPR (Attempt to Resuscitate); Full Support Ordered at: 05/08/25 0452 Code Status (Patient has no pulse and is not breathing): CPR (Attempt to Resuscitate) Medical Interventions (Patient has pulse or is breathing): Full Support No future appointments. Additional Instructions for the Follow-ups that You Need to Schedule Discharge Follow-up with PCP As directed Currently Documented PCP: Provider, No Known PCP Phone Number: None Follow Up Details: 1 week Renee Liu MD 05/09/25 Time Spent on Discharge: I spent 40 minutes on this discharge activity which included: okyl-kv-[id number] with the patient, reviewing the data in the system, coordination of the care with the nursing staff as well as consultants, documentation, and entering orders. * Lillian Cage - 05/08/2025 9:32 AM EST Images from the original note were not included. Patient Name: Radu Turk : 1960 Today's Date: 05/08/2025 Admit Date: 05/08/2025 Visit Dx: No diagnosis found. Patient Active Problem List Diagnosis Vertigo Chronic obstructive pulmonary disease Neuropathy Anemia (HFpEF) heart failure with preserved ejection fraction Past Medical History: Diagnosis Date COPD (chronic obstructive pulmonary disease) Past Surgical History: Procedure Laterality Date BACK SURGERY General Information Row Name 05/08/25 1005 Physical Therapy Time and Intention Document Type discharge evaluation/summary -KG Mode of Treatment physical therapy -KG Row Name 05/08/25 100 General Information Patient Profile Reviewed yes -KG Prior Level of Function independent:;all household mobility;ADL's daughter does cooking, cleaning, has walker and cane that he uses occasionally. Limited by back and neck pain -KG Existing Precautions/Restrictions oxygen therapy device and L/min -KG Barriers to Rehab none identified -KG Row Name 05/08/25 100 Living Environment Current Living Arrangements home -KG People in Home child(amber), adult;grandchild(amber);other (see comments) daughter, grandchildren -KG Row Name 05/08/25 100 Home Main Entrance Number of Stairs, Main Entrance none -KG Row Name 05/08/25 1005 Stairs Within Home, Primary Number of Stairs, Within Home, Primary none -KG Row Name 05/08/25 100 Cognition Orientation Status (Cognition) oriented x 3 -KG Row Name 05/08/25 100 Safety Issues/Impairments Affecting Functional Mobility Safety Issues Affecting Function (Mobility) insight into deficits/self-awareness -KG Impairments Affecting Function (Mobility) pain -KG User Timmons (r) = Recorded By, (t) = Taken By, (c) = Cosigned By Initials Name Provider Type KG Lillian Cage Physical Therapist Mobility Row Name 05/08/25 1011 Bed Mobility Bed Mobility [id number] -KG Jjxqbv-Yap-Hawquv Vanderbilt (Bed Mobility) modified independence -KG Assistive Device (Bed Mobility) head of bed elevated -KG Comment, (Bed Mobility) cues line management -KG Row Name 05/08/25 1011 Transfers Comment, (Transfers) modif indep, pt wary dizziness may occur, low back pain and neck pain -KG Row Name 05/08/25 1011 Sit-Stand Transfer Sit-Stand Vanderbilt (Transfers) modified independence -KG Assistive Device (Sit-Stand Transfers) other (see comments) no AD -KG Row Name 05/08/25 1011 Gait/Stairs (Locomotion) Vanderbilt Level (Gait) modified independence -KG Assistive Device (Gait) other (see comments) no AD -KG Patient was able to Ambulate yes -KG Distance in Feet (Gait) 220 -KG Deviations/Abnormal Patterns (Gait) antalgic;gait speed decreased -KG Comment, (Gait/Stairs) Pt able to ambulate 220', modif indep, wary that dizziness may occur but no dizziness present even with including multiple head positions, antalgic gait due to pain in low back, neck -KG User Timmons (r) = Recorded By, (t) = Taken By, (c) = Cosigned By Initials Name Provider Type Lillian Castillo Physical Therapist Obj/Interventions Row Name 05/08/25 1015 Range of Motion Comprehensive General Range of Motion no range of motion deficits identified -KG Row Name 05/08/25 1015 Strength Comprehensive (MMT) General Manual Muscle Testing (MMT) Assessment lower extremity strength deficits identified -KG Comment, General Manual Muscle Testing (MMT) Assessment 4/5 BLE -KG Row Name 05/08/25 1015 Motor Skills Therapeutic Exercise other (see comments) STS, seated lumbar flexion, pelvic tilts -KG Row Name 05/08/25 1015 Balance Balance Assessment standing dynamic balance -KG Dynamic Standing Balance modified independence -KG Position/Device Used, Standing Balance unsupported -KG Balance Interventions standing;sit to stand -KG User Timmons (r) = Recorded By, (t) = Taken By, (c) = Cosigned By Initials Name Provider Type Lillian Castillo Physical Therapist Goals/Plan No documentation. Clinical Impression Row Name 05/08/25 1018 Pain Pretreatment Pain Rating 7/10 -KG Posttreatment Pain Rating 7/10 -KG Pain Location back -KG Pain Side/Orientation lower -KG Pain Management Interventions exercise or physical activity utilized -KG Response to Pain Interventions activity participation with tolerable pain -KG Row Name 05/08/25 1018 Plan of Care Review Plan of Care Reviewed With patient -KG Progress no change -KG Outcome Evaluation PT eval performed: Pt presenting close to baseline. Pt able to ambulate 220', modif indep, wary that dizziness may occur but no dizziness present even with including multiple head positions, antalgic gait due to pain in low back, neck. No dizziness thoughout session. Recommend d/c home with benefit for OP PT to address chronic back/ neck pain. No further IPPT warranted -KG Row Name 05/08/25 1018 Therapy Assessment/Plan (PT) Therapy Frequency (PT) evaluation only -KG Row Name 05/08/25 1018 Vital Signs Pre Systolic BP Rehab 108 -KG Pre Treatment Diastolic BP 53 -KG Post Systolic BP Rehab 125 -KG Post Treatment Diastolic BP 81 -KG Posttreatment Heart Rate (beats/min) 53 -KG Pre SpO2 (%) 93 -KG O2 Delivery Pre Treatment nasal cannula -KG Intra SpO2 (%) 88 -KG O2 Delivery Intra Treatment room air -KG Post SpO2 (%) 94 -KG O2 Delivery Post Treatment nasal cannula -KG Row Name 05/08/25 1018 Positioning and Restraints Pre-Treatment Position in bed -KG Post Treatment Position bed -KG In Bed notified nsg;fowlers;call light within reach;encouraged to call for assist -KG User Timmons (r) = Recorded By, (t) = Taken By, (c) = Cosigned By Initials Name Provider Type KG Lillian Cage Physical Therapist Outcome Measures Row Name 05/08/25 1021 05/08/25 0341 How much help from another person do you currently need... Turning from your back to your side while in flat bed without using bedrails? 3 -KG 3 -JR Moving from lying on back to sitting on the side of a flat bed without bedrails? 3 -KG 3 -JR Moving to and from a bed to a chair (including a wheelchair)? 3 -KG 3 -JR Standing up from a chair using your arms (e.g., wheelchair, bedside chair)? 3 - KG 3 -JR Climbing 3-5 steps with a railing? 3 -KG 3 -JR To walk in hospital room? 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 User Timmons Initials Effective Dates Name Provider Type Discipline KG 05/29/24 - Lillian Cage Physical Therapist PT PT Recommendation and Plan Recommended discharge disposition is based on the functional assessment performed by PT/OT/Speech therapy (as applicable) and may not reflect the medical necessity determined by your provider or services covered by an individual patient's insurance plan or patient resource. Therapy Frequency (PT): evaluation only Progress: no change Outcome Evaluation: PT eval performed: Pt presenting close to baseline. Pt able to ambulate 220', modif indep, wary that dizziness may occur but no dizziness present even with including multiple headpositions, antalgic gait due to pain in low back, neck. No dizziness thoughout session. Recommend d/c home with benefit for OP PT to address chronic back/ neck pain. No further IPPT warranted Time Calculation: PT Charges Row Name 05/08/25 1022 Time Calculation Start Time 0932 -KG PT Received On 05/08/25 -KG PT Goal Re-Cert Due Date 05/18/25 -KG User Timmons (r) = Recorded By, (t) = Taken By, (c) = Cosigned By Initials Name Provider Type KG Lillian Cage Physical Therapist Therapy Charges for Today Code Description Service Date Service Provider Modifiers Qty [id number] HC PT EVAL LOW COMPLEXITY 4 05/08/2025 Lillian Cage GP 1 PT G-Codes Outcome Measure Options: AM-PAC 6 Clicks Basic Mobility (PT) AM-PAC 6 Clicks Score (PT): 18 PT Discharge Summary Anticipated Discharge Disposition (PT): home with assist, home with outpatient therapy services Lillian Cage 05/08/2025 * Keturah, Ghazala Moyer OT - 05/08/2025 9:25 AM EST Images from the original note were not included. Acute Care - Occupational Therapy Discharge [facility] Patient Name: Radu Turk : 1960 Today's Date: 05/08/2025 Admit Date: 05/08/2025 Visit Dx: No diagnosis found. Patient Active Problem List Diagnosis Vertigo Chronic obstructive pulmonary disease Neuropathy Anemia (HFpEF) heart failure with preserved ejection fraction Past Medical History: Diagnosis Date COPD (chronic obstructive pulmonary disease) Past Surgical History: Procedure Laterality Date BACK SURGERY General Information Row Name 05/08/25 1122 OT Time and Intention Document Type discharge evaluation/summary -JR Mode of Treatment occupational therapy - Row Name 05/08/25 1122 General Information Patient Profile Reviewed yes -JR Prior Level of Function independent:;all household mobility;ADL's Dtr completed home management, ptreports he can complete simple shopping trips, Pt reports he has a walker and a cane he can use. Ptis limited with back and neck pain -JR Existing Precautions/Restrictions oxygen therapy device and L/min -JR Barriers to Rehab none identified -JR Row Name 05/08/25 1122 Living Environment Current Living Arrangements home -JR People in Home child(amber), adult;grandchild(amber) -JR Row Name 05/08/25 1122 Home Main Entrance Number of Stairs, Main Entrance none -JR Row Name 05/08/25 1122 Stairs Within Home, Primary Number of Stairs, Within Home, Primary none -JR Row Name 05/08/25 1122 Cognition Orientation Status (Cognition) oriented x 3 - Row Name 05/08/25 1122 Safety Issues/Impairments Affecting Functional Mobility Safety Issues Affecting Function (Mobility) insight into deficits/self-awareness - Impairments Affecting Function (Mobility) pain -JR User Timmons (r) = Recorded By, (t) = Taken By, (c) = Cosigned By Initials Name Provider Type Ghazala Langston, OT Occupational Therapist Mobility/ADL's Row Name 05/08/25 1123 Bed Mobility Bed Mobility supine-sit;sit-supine -JR Supine-Sit Vanderbilt (Bed Mobility) modified independence -JR Sit-Supine Vanderbilt (Bed Mobility) modified independence - Assistive Device (Bed Mobility) head of bed elevated - Row Name 05/08/25 1123 Transfers Transfers sit-stand transfer - Row Name 05/08/25 1123 Sit-Stand Transfer Sit-Stand Vanderbilt (Transfers) modified independence - Assistive Device (Sit-Stand Transfers) other (see comments) none - Row Name 05/08/25 1123 Functional Mobility Functional Mobility- Ind. Level conditional independence - Functional Mobility-Distance (Feet) -- > household distance -JR Functional Mobility- Comment Refer to PT note -JR User Timmons (r) = Recorded By, (t) = Taken By, (c) = Cosigned By Initials Name Provider Type Ghazala Langston, OT Occupational Therapist Obj/Interventions Row Name 05/08/25 1124 Sensory Assessment (Somatosensory) Sensory Assessment Pt repors numbness in B fingertips -[facility] Name 05/08/25 1124 Range of Motion Comprehensive General Range of Motion bilateral upper extremity ROM WFL -[facility] Name 05/08/25 1124 Strength Comprehensive (MMT) Comment, General Manual Muscle Testing (MMT) Assessment B UE functionally 4/5 - Row Name 05/08/25 1124 Motor Skills Motor Skills coordination;muscle tone - Coordination WFL - Muscle Tone WNL -[facility] Name 05/08/25 1124 Balance Balance Assessment sitting static balance;standing dynamic balance -JR Static Sitting Balance modified independence -JR Dynamic Standing Balance modified independence - Position/Device Used, Standing Balance unsupported - User Timmons (r) = Recorded By, (t) = Taken By, (c) = Cosigned By Initials Name Provider Type JR Ghazala Rebollar, OT Occupational Therapist Goals/Plan No documentation. Clinical Impression Row Name 05/08/25 1125 Pain Assessment Pretreatment Pain Rating /10 -JR Posttreatment Pain Rating 10 -JR Pain Location back -JR Pain Management Interventions nursing notified -JR Response to Pain Interventions activity participation with tolerable pain -JR Row Name 05/08/25 1125 Plan of Care Review Plan of Care Reviewed With patient -JR Outcome Evaluation OT initial eval and expanded chart review completed. Pt presents with multiple comorbidities, but appears at or near baseline with mobility and ADL's. No further skilled OT services indicate at this time. Recommend home with family when medically appropriate. -JR Row Name 05/08/25 1125 Therapy Assessment/Plan (OT) Patient/Family Therapy Goal Statement (OT) go home -JR Criteria for Skilled Therapeutic Interventions Met (OT) no;no problems identified which require skilled intervention -JR Therapy Frequency (OT) evaluation only -JR Predicted Duration of Therapy Intervention (OT) 1 day -JR Row Name 05/08/25 1125 Therapy Plan Review/Discharge Plan (OT) Anticipated Discharge Disposition (OT) home with assist -JR Row Name 05/08/25 1125 Vital Signs Pre Systolic BP Rehab 108 -JR Pre Treatment Diastolic BP 53 -JR Post Systolic BP Rehab 125 -JR Post Treatment Diastolic BP 81 -JR Pretreatment Heart Rate (beats/min) 58 -JR Posttreatment Heart Rate (beats/min) 68 -JR Pre SpO2 (%) 91 -JR O2 Delivery Pre Treatment nasal cannula -JR Intra SpO2 (%) 88 -JR O2 Delivery Intra Treatment nasal cannula -JR Post SpO2 (%) 94 -JR O2 Delivery Post Treatment nasal cannula -JR Pre Patient Position Supine -JR Intra Patient Position Standing -JR Post Patient Position Supine -JR Row Name 05/08/25 1125 Positioning and Restraints Pre-Treatment Position in bed -JR Post Treatment Position bed -JR In Bed notified nsg;call light within reach;encouraged to call for assist -JR User Timmons (r) = Recorded By, (t) = Taken By, (c) = Cosigned By Initials Name Provider Type Ghazala Rebollar, OT Occupational Therapist Outcome Measures Row Name 05/08/25 1127 How much help from another is currently needed... Putting on and taking off regular lower body clothing? 3 -JR Bathing (including washing, rinsing, and drying) 3 -JR Toileting (which includes using toilet bed leyva or urinal) 3 -JR Putting on and taking off regular upper body clothing 3 -JR Taking care of personal grooming (such as brushing teeth) 4 -JR Eating meals 4 -JR AM-PAC 6 Clicks Score (OT) 20 -JR Row Name 05/08/25 1021 05/08/25 0800 How much help from another person do you currently need... Turning from your back to your side while in flat bed without using bedrails? 3 -KG 3 -JM (r) ER (t) JM (c) Moving from lying on back to sitting on the side of a flat bed without bedrails? 3 -KG 3 -JM (r) ER(t) JM (c) Moving to and from a bed to a chair (including a wheelchair)? 3 -KG 3 -JM (r) ER (t) JM (c) Standing up from a chair using your arms (e.g., wheelchair, bedside chair)? 3 - KG 3 -JM (r) ER (t) JM (c) Climbing 3-5 steps with a railing? 3 -KG 3 -JM (r) ER (t) JM (c) To walk in hospital room? 3 -KG 3 -JM (r) ER (t) JM (c) AM-PAC 6 Clicks Score (PT) 18 -KG 18 -JM (r) ER (t) Highest Level of Mobility Goal Walk 10 Steps or More-6 -KG Walk 10 Steps or More-6 -JM (r) ER (t) Row Name 05/08/25 0341 How much help from another person do you currently need... Turning from your back to your side while in flat bed without using bedrails? 3 -JR(2) Moving from lying on back to sitting on the side of a flat bed without bedrails? 3 -JR(2) Moving to and from a bed to a chair (including a wheelchair)? 3 -JR(2) Standing up from a chair using your arms (e.g., wheelchair, bedside chair)? 3 -JR(2) Climbing 3-5 steps with a railing? 3 -JR(2) To walk in hospital room? 3 -JR(2) AM-PAC 6 Clicks Score (PT) 18 -JR(2) Highest Level of Mobility Goal Walk 10 Steps or More-6 -JR(2) Row Name 05/08/25 1127 05/08/25 1021 Functional Assessment Outcome Measure Options AM-PAC 6 Clicks Daily Activity (OT) -JR AM-PAC 6 Clicks Basic Mobility (PT)-KG User Timmons (r) = Recorded By, (t) = Taken By, (c) = Cosigned By Initials Name Provider Type Ghazala Rebollar, OT Occupational Therapist Lillian Castillo Physical Therapist Lashawn Ruby, SAHRA Registered Nurse Jolie Aleman RN Animal Care Worker Registered Nurse (2) Ghazala Alvarado, SAHRA Registered Nurse Occupational Therapy Education Title: PT OT KERFER MACHINE OPERATOR Therapies (In Progress) Topic: Occupational Therapy (In Progress) Point: ADL training (Done) Learning Progress Summary Patient Acceptance, E, VU by at 05/08/2025 0925 Comment: role of therapy, discharge recommendations User Timmons Initials Effective Dates Name Provider Type Discipline 07/20/22 - Ghazala Rebollar, OT Occupational Therapist OT OT Recommendation and Plan Recommended discharge disposition is based on the functional assessment performed by PT/OT/Speech therapy (as applicable) and may not reflect the medical necessity determined by your provider or services covered by an individual patient's insurance plan or patient resource. Therapy Frequency (OT): evaluation only Plan of Care Review Plan of Care Reviewed With: patient Outcome Evaluation: OT initial eval and expanded chart review completed. Pt presents with multiple comorbidities, but appears at or near baseline with mobility and ADL's. No further skilled OT services indicate at this time. Recommend home with family when medically appropriate. Plan of Care Reviewed With: patient Outcome Evaluation: OT initial eval and expanded chart review completed. Pt presents with multiple comorbidities, but appears at or near baseline with mobility and ADL's. No further skilled OT services indicate at this time. Recommend home with family when medically appropriate. Time Calculation: Evaluation Complexity (OT) Review Occupational Profile/Medical/Therapy History Complexity: expanded/moderate complexity Assessment, Occupational Performance/Identification of Deficit Complexity: 1-3 performance deficits Clinical Decision Making Complexity (OT): detailed assessment/moderate complexity Overall Complexity of Evaluation (OT): low complexity Time Calculation- OT Row Name 05/08/25 1129 Time Calculation- OT OT Start Time 924 - OT Received On 05/08/25 -JR Untimed Charges OT Eval/Re-eval Minutes 46 -JR Total Minutes Untimed Charges Total Minutes 46 -JR Total Minutes 46 -JR User Timmons (r) = Recorded By, (t) = Taken By, (c) = Cosigned By Initials Name Provider Type JR Ghazala Rebollar OT Occupational Therapist Therapy Charges for Today Code Description Service Date Service Provider Modifiers Qty [id number] OT EVAL LOW COMPLEXITY 4 05/08/2025 Ghazala Rebollar OT GO 1 OT Discharge Summary Anticipated Discharge Disposition (OT): home with assist Reason for Discharge: At baseline function Outcomes Achieved: Refer to plan of care for updates on goals achieved Discharge Destination: Home with assist Ghazala Rebollar OT 05/08/2025 documented in this encounter Discharge Instructions * Attachments The following attachments cannot be sent through Care Everywhere. * Buspirone Tablets (Kiswahili) * Meclizine Tablets (Kiswahili) * Vertigo (Kiswahili) * Dizziness (Kiswahili) documented in this encounter Medications at Time of Discharge atorvastatin (LIPITOR) 20 MG tablet Take 1 tablet by mouth Daily. 01/19/2025 buPROPion (WELLBUTRIN) 75 MG tablet Take 1 tablet by mouth Daily. 11/11/2024 busPIRone (BUSPAR) 5 MG tablet Take 1 tablet by mouth 2 (Two) Times a Day. 60 tablet 05/09/2025 carvedilol (COREG) 3.125 MG tablet Take 1 tablet by mouth 2 (Two) Times a Day With Meals. DULoxetine (CYMBALTA) 60 MG capsule Take 1 capsule by mouth 2 (Two) Times a Day. 04/20/2025 Entresto 24-26 MG tablet Take 1 tablet by mouth 2 (Two) Times a Day. Patient states taking valsartin 11/13/2024 furosemide (LASIX) 20 MG tablet Take 1 tablet by mouth Daily. 02/15/2025 gabapentin (NEURONTIN) 600 MG tablet Take 1 tablet by mouth 3 (Three) Times a Day. 04/11/2025 ipratropium-albu terol (DUO-NEB) 0.5-2.5 mg/3 ml nebulizer Take 3 mL by nebulization 4 (Four) Times a Day. 02/17/2025 meclizine (ANTIVERT) 25 MG tablet Take 1 tablet by mouth 3 (Three) Times a Day As Needed for Dizziness. 15 tablet 05/09/2025 oxyCODONE-acetam inophen (PERCOCET) 7.5-325 MG per tablet Take 1 tablet by mouth Every 6 (Six) Hours As Needed for Moderate Pain. 04/10/2025 Stiolto Respimat 2.5-2.5 MCG/ACT aerosol solution inhaler Inhale 2 puffs Daily. 04/27/2025 documented as of this encounter Progress Notes * Renee Liu MD - 05/08/2025 11:32 AM EST Images from the original note were not included. [facility] ADMISSION FOLLOW-UP NOTE Patient admitted after midnight, H&P by my partner performed earlier on today's date reviewed. Interim findings, labs, and charting also reviewed. The [facility] Hospital Problem List has been managed and updated to include any new diagnoses: Active Hospital Problems Diagnosis POA Vertigo [R42] Yes Chronic obstructive pulmonary disease [J44.9] Yes Neuropathy [G62.9] Yes Anemia [D64.9] Yes (HFpEF) heart failure with preserved ejection fraction [I50.30] Yes Resolved Hospital Problems No resolved problems to display. 64 yo M with hx of HFpEF, COPD, lung nodule, hypertension, hyperlipidemia, and tobacco use who presented to [facility] ED with concern for vertigo x 1 day. This patient's problems and plans were partially entered by my partner and updated as appropriate by me 05/08/25. Copied text in this note has been reviewed and is accurate as of today's date. Vertigo/positional unsteadiness - CT head and CTA H/N from OSH reportedly negative for acute findings - s/p 325 mg ASA load at OSH - continue ASA 81 mg daily, started atorvastatin 80 mg nightly - Stroke team following - MRI brain pending - Echo pending - HbA1c 6.07%, LDL 64 - PT/OT/KERFER MACHINE OPERATOR evaluations HFpEF, compensated Bradycardia - Heart failure appears compensated - HOLD Entresto, Lasix for now - Sinus bradycardia noted on telemetry, HOLD Coreg for now and monitor - Hold Entresto, Lasix for now - Echo pending as above COPD - Stable, continue home inhalers and equivalents Chronic pain - Continue home Percocet and Cymbalta Expected Discharge Expected Discharge Date: 05/09/2025; Expected Discharge Time: Renee Liu MD 05/08/25 documented in this encounter H&P Notes * Vikas Grossman MD - 05/08/2025 3:05 AM EST Images from the original note were not included. [facility] HISTORY AND PHYSICAL Patient Name: Radu Turk : 1960 Primary Care Physician: Provider, No Known Date of admission: 05/08/2025 Subjective Subjective Chief Complaint: Vertigo HPI: Radu Turk is a 64 y.o. male hx HFpEF, COPD, lung nodule, hypertension, hyperlipidemia, and tobacco use who presented to [facility] ED with concern for vertigo which started suddenly yesterday afternoon. He attributes this to change in position he was bending forward and felt room spinning s ensation. He feels back to normal sitting in bed however when he moves he still gets this sensation. He has no other acute focal neurological deficits he was seen initially at outside hospital with negative head imaging but given acute neurological symptoms he was sent here for further workup. Personal History Past Medical History: Diagnosis Date COPD (chronic obstructive pulmonary disease) Past Surgical History: Procedure Laterality Date BACK SURGERY Family History: family history is not on file. Social History: reports that he has quit smoking. His smoking use included cigarettes. He does not have any smokeless tobacco history on file. He reports that he does not drink alcohol. Social History Social History Narrative Not on file Medications: Available home medication information reviewed. DULoxetine, atorvastatin, buPROPion, carvedilol, furosemide, gabapentin, ipratropium-albuterol, oxyCODONE-acetaminophen, sacubitril-valsartan, and tiotropium bromide-olodaterol No Known Allergies Objective Objective Vital Signs: Temp: [97.6 ??F (36.4 ??C)] 97.6 ??F (36.4 ??C) Heart Rate: [49-58] 51 Resp: [16-18] 16 BP: (120)/(67) 120/67 Flow (L/min) (Oxygen Therapy): [2] 2 Total (NIH Stroke Scale): 0 Physical Exam Awake alert and oriented x 3 Resting comfortably in bed Extract movements intact pupils equal and reactive to light, no nystagmus Facial expression intact Neck flexion intact Strength equal and intact throughout, sensation grossly intact Heart bradycardic, regular Lungs with scattered end expiratory wheezes No peripheral edema Result Review: I have personally reviewed the results from the time of this admission to 05/08/2025 07:04 EST and agree with these findings: [x] Laboratory list / accordion [] Microbiology [x] Radiology [x] EKG/Telemetry [x] Cardiology/Vascular [] Pathology [x] Old records [] Other: Most notable findings include: See assessment and plan LAB RESULTS: Microbiology Results (last 10 days) No results found for the last 240 hours. No radiology results from the last 24 hrs Assessment & Plan Assessment & Plan Vertigo Chronic obstructive pulmonary disease Neuropathy Anemia (HFpEF) heart failure with preserved ejection fraction Vertigo/positional unsteadiness - CT imaging unrevealing so far, no other focal deficits. Stroke team is following, MRI and echo are pending. Will defer antiplatelets to them Heart failure with preserved ejection fraction, compensated Bradycardia - Heart failure appears compensated. Sinus bradycardia noted on telemetry overnight. He was prescribed furosemide, Entresto, Coreg. For now we will hold Coreg due to bradycardia and monitor, and holding antihypertensives for now until stroke ruled out by MRI. Echo pending, blood pressure currently acceptable COPD - Stable, continue home inhalers and equivalents Chronic pain - Continue home Percocet and Cymbalta VTE Prophylaxis: Pharmacologic & mechanical VTE prophylaxis orders are present. CODE STATUS: Code Status and Medical Interventions: CPR (Attempt to Resuscitate); Full Support Ordered at: 05/08/25 0452 Code Status (Patient has no pulse and is not breathing): CPR (Attempt to Resuscitate) Medical Interventions (Patient has pulse or is breathing): Full Support Expected Discharge Expected discharge date/ time has not been documented. Vikas Grossman MD 05/08/25 documented in this encounter Consult Notes * Ramez Magallon PA-C - 05/08/2025 12:42 AM EST Stroke Consult Note Patient Name: Radu Turk Age: 64 y.o. Sex: male : 1960 Primary Care Physician: Provider, No Known Referring Physician: Kenneth Alonzo DO, [facility] Handedness: Right Race: Chief Complaint/Reason for Consultation: Vertigo with gait instability HPI Last Known Normal Date/Time: 1400 on 05/07/2025 This patient is a 64-year-old male with past medical history significant for HFrEF, COPD, lung nodule, hypertension, hyperlipidemia, and tobacco use who presented to [facility] ED with concernfor vertigo. Patient states symptoms started when he stood up abruptly after being bent over to empty a trash can. Time of onset was approximately 1400 on 05/07. Patient denied other associated neurologic symptoms to include headache, vision changes, speech difficulty, unilateral weakness, sensory deficits, gait/coordination deficits. ED provider reported NIH score was 0, however states some gaitinstability was noted on exam. CTh and CTA H/N obtained at [facility] ED was reportedly negative for acuteabnormality. Patient was not a candidate for IV thrombolytics or emergent neurointervention based on last known well and no LVO on CT imaging. Patient was loaded with aspirin per ED provider and transferred to [facility] for higher level of care. Patient was seen and examined immediately on arrival to [facility]. On my exam, patient complains of mild dizziness that is tolerable while laying in bed at rest. Patient states dizziness worsens with any movement. NIH score is 0 with no focal neurologic deficits appreciated. Patient will remain admitted to the hospital medicine service for ongoing management and further workup. Review of Systems Constitutional: Negative for chills and fever. HENT: Negative for trouble swallowing. Eyes: Negative for visual disturbance. Respiratory: Negative for shortness of breath. Cardiovascular: Negative for chest pain. Gastrointestinal: Negative for abdominal pain. Musculoskeletal: Negative for myalgias. Neurological: Positive for dizziness. Negative for tremors, facial asymmetry, speech difficulty, weakness, light-headedness, numbness and headaches. Psychiatric/Behavioral: Negative for behavioral problems. The patient is not nervous/anxious. Objective Neurological Exam Mental Status Alert. Oriented to person, place, time and situation. Speech is normal. Language is fluent with no aphasia. Attention and concentration are normal. Fund of knowledge is appropriate for level of education. Cranial Nerves CN II: Visual bui full to confrontation. CN III, IV, : Extraocular movements intact bilaterally. Pupils equal round and reactive to light bilaterally. CN V: Right: Facial sensation is normal. Left: Facial sensation is normal on the left. CN VII: Right: There is no facial weakness. Left: There is no facial weakness. CN VIII: Hearing grossly intact bilaterally. CN IX, X: Palate elevates symmetrically CN XII: Tongue midline without atrophy or fasciculations. Motor Normal muscle bulk throughout. Normal muscle tone. Strength is 5/5 throughout all four extremities. Sensory Light touch is normal in upper and lower extremities. Coordination Right: Dsgfmy-zh-wrof normal. Rapid alternating movement normal.Left: Pnzveb-fb-naon normal. Rapid alternating movement normal. Physical Exam Constitutional: General: He is not in acute distress. HENT: Head: Normocephalic and atraumatic. Eyes: Extraocular Movements: Extraocular movements intact. Pupils: Pupils are equal, round, and reactive to light. Cardiovascular: Rate and Rhythm: Normal rate. Pulmonary: Effort: Pulmonary effort is normal. Musculoskeletal: General: No swelling. Skin: General: Skin is warm and dry. Neurological: Mental Status: He is alert. Motor: Motor strength is normal. Psychiatric: Mood and Affect: Mood normal. Speech: Speech normal. Behavior: Behavior normal. Temp: [97.6 ??F (36.4 ??C)] 97.6 ??F (36.4 ??C) Heart Rate: [49] 49 Resp: [17] 17 BP: (120)/(67) 120/67 No past medical history on file. No past surgical history on file. No family history on file. Social History Socioeconomic History Marital status: Not on File Prior to Admission medications Not on File Acute Stroke Data Thrombolytic Inclusion / Exclusion Criteria Person Administering Scale: Ramez Magallon PA-C YES NO INCLUSION CRITERIA CLASS I [] [] Suspected diagnosis of acute ischemic stroke with measureable neurological deficit. Low NIHSS with disabling stroke symptoms. [] [x] Onset of stroke symptoms < 3 hours before beginning treatment >/ 18 years old Stroke symptom onset = time patient was last seen well or without symptoms (LKW) [] [] Onset of symptoms between 3-4.5 hours: >/= 80 years old (safe Class IIa) with history of both diabetes and prior CVA (reasonable Class IIb) AND NIHSS </= 25 *If not eligible for IV Thrombolytic consider neuro intervention for LKW within 24 hours YES NO EXCLUSION CRITERIA (CONTRAINDICATIONS) CLASS III EVIDENCE HARM [] [] Blood pressure >185/110 medically refractory to IV medications [] [] Active bleeding at a non-compressible site [] [] Active intracranial hemorrhage (ICH) [] [] Symptoms suggestive of subarachnoid hemorrhage (SAH) [] [] GI bleed within 21 days [] [] Ischemic stroke within 3 months [] [] Severe head trauma within 3 months [] [] Intracranial or intraspinal surgery within 3 months [] [] Current GI malignancy [] [] Intracranial neoplasm [] [] Infective endocarditis [] [] Aortic arch dissection [] [] Active coagulopathy with INR >1.7, platelets <100,000, PTT > 40 sec, PT > 15 sec *For warfarin, administration can begin before blood tests resulted. Discontinue for above values. [] [] Treatment dose* of LMWH (Lovenox) in last 24 hours *prophylactic dosages are not a contraindication [] [] Concurrent use of antiplatelet agents' glycoprotein inhibitors IIb/IIIa (Integrilin, etc.) [] [] Thrombin or factor Xa inhibitors (Eliquis, Xarelto, Arixtra) taken in last 48 hours YES NO CLASS II: AIS WITH THE FOLLOWING CONDITIONS - TREATMENT RISKS SHOULD BE WEIGHED AGAINST POSSIBLE BENEFITS. [] [] Major trauma in last 14 days, recent major surgery in last 14 days, intracranial arterial dissection, giant unruptured and unsecured intracranial aneurysm, pericarditis [] [] The risks and benefits have been discussed with the patient or family related to the administration of IV thrombolytic therapy for stroke symptoms. [] [] I have discussed and reviewed the patient's case and imaging with the attending prior to IV thrombolytic therapy. TIME N/A Time IV thrombolytic administered MODIFIED LYNN SCALE (to be assessed for each patient having history of stroke) []Stroke history but not assessed [x]0: No symptoms at all []1: No significant disability despite symptoms []2: Slight disability []3: Moderate disability []4: Moderately severe disability []5: Severe disability []6: NIH Stroke Scale Time: 0245 Person Administering Scale: Ramez Magallon PA-C 1a Level of consciousness: 0=alert; keenly responsive 1b. LOC questions: 0=Performs both tasks correctly 1c. LOC commands: 0=Performs both tasks correctly 2. Best Gaze: 0=normal 3. Visual: 0=No visual loss 4. Facial Palsy: 0=Normal symmetric movement 5a. Motor left arm: 0=No drift, limb holds 90 (or 45) degrees for full 10 seconds 5b. Motor right arm: 0=No drift, limb holds 90 (or 45) degrees for full 10 seconds 6a. motor left le=No drift, limb holds 90 (or 45) degrees for full 10 seconds 6b Motor right le=No drift, limb holds 90 (or 45) degrees for full 10 seconds 7. Limb Ataxia: 0=Absent 8. Sensory: 0=Normal; no sensory loss 9. Best Language: 0=No aphasia, normal 10. Dysarthria: 0=Normal 11. Extinction and Inattention: 0=No abnormality Total: 0 Hospital Meds Scheduled- aspirin, 81 mg, Oral, Daily Or aspirin, 300 mg, Rectal, Daily atorvastatin, 80 mg, Oral, Nightly sodium chloride, 10 mL, Intravenous, Q12H Infusions- PRNs- sodium chloride sodium chloride Results Reviewed I have personally reviewed current lab, radiology, and data and agree with results. Disc with OSH imaging pending upload to chart. [facility] CTh 05/07/2025: No evidence of acute intracranial abnormality, per report OSH CTA H/N 05/07/2025: No evidence of LVO or significant flow-limiting stenosis, per report Assessment and Plan This patient is a 64-year-old male with risk factors significant for HFrEF, COPD, lung nodule, HTN,HLD, and tobacco use who presented to [facility] ED 05/07/2025 with concern for acute onset vertigo that started after he stood up abruptly after bending down to empty a trash can. Initial NIH score was 0, however OSH ED provider reported mild to moderate gait instability on exam. OSH CT imaging was unrevealing. Patient was transferred to [facility] for higher level of care. Patient was not a candidate for IV thrombolytics or emergent neurointervention. Antiplatelet BALLER TENDER: None Anticoagulant BALLER TENDER: None Vertigo with gait instability -Differentials include acute stroke, TIA, metastatic disease (reported h/o lung nodule on OSH ED transfer paperwork) -MRI brain with and without contrast pending -Patient s/p 325 mg aspirin load at OSH ED. Continue aspirin 81 mg daily for now -Allow for autoregulation of blood pressure, SBP goal < 200 -NPO pending bedside swallow eval -TTE pending -LDL pending, start atorvastatin 80 mg nightly -A1c pending -Serial neurochecks per policy, stat CTh for any acute neurological change -PT/OT/KERFER MACHINE OPERATOR as appropriate Disposition: Patient is admitted to the hospital medicine service. Case discussed with the patient and bedside RN. Thank you for the consult. Stroke neurology will continue to follow. Ramez Magallon PA-C [facility] [place] Stroke Neurology Cosigned by Ramez Salamanca MD at 05/08/2025 5:10 PM EST Associated attestation - Ramez Salamanca MD - 05/08/2025 5:10 PM EST I have personally seen and examined this patient. MRI is negative for acute/subacute stroke. Per patient history, his symptoms were positional in nature, particularly when bending over with his head down to shrimp picker objects. Exam is negative for focal neurologic deficits, including any cerebellar findings. Symptom etiology most likely BPPV or pre-syncope. Not current indication for further stroke work up at this time. Otherwise, I have reviewed this documentation and agree. Ramez Salamanca MD Vascular Neurologist [facility] documented in this encounter Nursing Notes * Cristiane Arguelles RN - 05/09/2025 6:46 AM EST Problem: Adult Inpatient Plan of Care Goal: Plan of Care Review Outcome: Progressing Goal: Patient-Specific Goal (Individualized) Outcome: Progressing Goal: Absence of Hospital-Acquired Illness or Injury Outcome: Progressing Intervention: Identify and Manage Fall Risk Recent Flowsheet Documentation Taken 05/09/2025 0600 by Cristiane Arguelles RN Safety Promotion/Fall Prevention: activity supervised assistive device/personal items within reach clutter free environment maintained nonskid shoes/slippers when out of bed room organization consistent safety round/check completed Taken 05/09/2025 0400 by Cristiane Arguelles RN Safety Promotion/Fall Prevention: activity supervised assistive device/personal items within reach clutter free environment maintained nonskid shoes/slippers when out of bed room organization consistent safety round/check completed Taken 05/09/2025 0200 by Cristiane Arguelles RN Safety Promotion/Fall Prevention: activity supervised assistive device/personal items within reach clutter free environment maintained nonskid shoes/slippers when out of bed room organization consistent safety round/check completed Taken 05/09/2025 0000 by Cristiane Arguelles RN Safety Promotion/Fall Prevention: activity supervised assistive device/personal items within reach clutter free environment maintained nonskid shoes/slippers when out of bed room organization consistent safety round/check completed Taken 05/08/2025 2200 by Cristiane Arguelles RN Safety Promotion/Fall Prevention: activity supervised assistive device/personal items within reach clutter free environment maintained nonskid shoes/slippers when out of bed room organization consistent safety round/check completed Taken 05/08/2025 2000 by Cristiane Arguelles RN Safety Promotion/Fall Prevention: activity supervised assistive device/personal items within reach clutter free environment maintained nonskid shoes/slippers when out of bed room organization consistent safety round/check completed Intervention: Prevent Skin Injury Recent Flowsheet Documentation Taken 05/09/2025 0600 by Cristiane Arguelles RN Body Position: position changed independently Skin Protection: incontinence pads utilized Taken 05/09/2025 0400 by Cristiane Arguelles RN Body Position: position changed independently Skin Protection: incontinence pads utilized Taken 05/09/2025 0200 by Cristiane Arguelles RN Body Position: position changed independently Skin Protection: incontinence pads utilized Taken 05/09/2025 0000 by Cristiane Arguelles RN Body Position: position changed independently Skin Protection: incontinence pads utilized Taken 05/08/2025 2200 by Cristiane Arguelles RN Body Position: position changed independently Skin Protection: incontinence pads utilized Taken 05/08/20251999 by Cristiane Arguelles RN Body Position: position changed independently Skin Protection: incontinence pads utilized Intervention: Prevent and Manage VTE (Venous Thromboembolism) Risk Recent Flowsheet Documentation Taken 05/08/20251999 by Cristiane Arguelles RN VTE Prevention/Management: (see MAR) bilateral SCDs (sequential compression devices) off Intervention: Prevent Infection Recent Flowsheet Documentation Taken 05/09/2025 0600 by Cristiane Arguelles RN Infection Prevention: environmental surveillance performed single patient room provided Taken 05/09/2025 0400 by Cristiane Arguelles RN Infection Prevention: environmental surveillance performed single patient room provided Taken 05/09/2025 0200 by Cristiane Arguelles RN Infection Prevention: environmental surveillance performed single patient room provided Taken 05/09/2025 0000 by Cristiane Arguelles RN Infection Prevention: environmental surveillance performed single patient room provided Taken 05/08/2025 2200 by Cristiane Arguelles RN Infection Prevention: environmental surveillance performed single patient room provided Taken 05/08/20251999 by Cristiane Arguelles RN Infection Prevention: environmental surveillance performed single patient room provided Goal: Optimal Comfort and Wellbeing Outcome: Progressing Intervention: Provide Person-Centered Care Recent Flowsheet Documentation Taken 05/09/2025 0600 by Cristiane Arguelles RN Trust Relationship/Rapport: care explained Taken 05/09/2025 0400 by Cristiane Arguelles RN Trust Relationship/Rapport: care explained Taken 05/09/2025 0200 by Cristiane Arguelles RN Trust Relationship/Rapport: care explained Taken 05/09/2025 0000 by Cristiane Arguelles RN Trust Relationship/Rapport: thoughts/feelings acknowledged Taken 05/08/20252199 by Cristiane Arguelles RN Trust Relationship/Rapport: care explained Taken 05/08/20251999 by Cristiane Arguelles RN Trust Relationship/Rapport: thoughts/feelings acknowledged care explained questions answered Goal: Readiness for Transition of Care Outcome: Progressing Problem: Stroke, Ischemic (Includes Transient Ischemic Attack) Goal: Optimal Coping Outcome: Progressing Intervention: Support Psychosocial Response to Stroke Recent Flowsheet Documentation Taken 05/09/2025 0600 by Cristiane Arguelles RN Family/Support System Care: self-care encouraged support provided Taken 05/09/2025 0400 by Cristiane Arguelles RN Family/Support System Care: self-care encouraged support provided Taken 05/09/2025 0200 by Cristiane Arguelles RN Family/Support System Care: self-care encouraged support provided Taken 05/09/2025 0000 by Cristiane Arguelles RN Family/Support System Care: support provided self-care encouraged Taken 05/08/20252199 by Cristiane Arguelles RN Family/Support System Care: self-care encouraged support provided Taken 05/08/20251999 by Cristiane Arguelles RN Supportive Measures: active listening utilized Family/Support System Care: support provided self-care encouraged Goal: Effective Bowel Elimination Outcome: Progressing Goal: Optimal Cerebral Tissue Perfusion Outcome: Progressing Intervention: Protect and Optimize Cerebral Perfusion Recent Flowsheet Documentation Taken 05/09/2025 0600 by Cristiane Arguelles RN Sensory Stimulation Regulation: care clustered Taken 05/09/2025 0400 by Cristiane Arguelles RN Sensory Stimulation Regulation: care clustered Taken 05/09/2025 0200 by Cristiane Arguelles RN Sensory Stimulation Regulation: care clustered Taken 05/09/2025 0000 by Cristiane Arguelles RN Sensory Stimulation Regulation: care clustered Taken 05/08/20252199 by Cristiane Arguelles RN Sensory Stimulation Regulation: care clustered Taken 05/08/20251999 by Cristiane Arguelles RN Sensory Stimulation Regulation: care clustered Goal: Optimal Cognitive Function Outcome: Progressing Intervention: Optimize Cognitive Function Recent Flowsheet Documentation Taken 05/09/2025 0600 by Cristiane Arguelles RN Sensory Stimulation Regulation: care clustered Taken 05/09/2025 0400 by Cristiane Arguelles RN Sensory Stimulation Regulation: care clustered Taken 05/09/2025 0200 by Cristiane Arguelles RN Sensory Stimulation Regulation: care clustered Taken 05/09/2025 0000 by Cristiane Arguelles RN Sensory Stimulation Regulation: care clustered Taken 05/08/2025 2200 by Cristiane Arguelles RN Sensory Stimulation Regulation: care clustered Taken 05/08/20251999 by Cristiane Arguelles RN Sensory Stimulation Regulation: care clustered Goal: Improved Communication Skills Outcome: Progressing Intervention: Optimize Communication Skills Recent Flowsheet Documentation Taken 05/09/2025 0600 by Cristiane Arguelles RN Communication Enhancement Strategies: call light answered in person device use encouraged Taken 05/09/2025 0400 by Cristiane Arguelles RN Communication Enhancement Strategies: call light answered in person device use encouraged Taken 05/09/2025 0200 by Cristiane Arguelles RN Communication Enhancement Strategies: call light answered in person device use encouraged Taken 05/09/2025 0000 by Cristiane Arguelles RN Communication Enhancement Strategies: call light answered in person device use encouraged Taken 05/08/2025 2200 by Cristiane Arguelles RN Communication Enhancement Strategies: call light answered in person device use encouraged Taken 05/08/2025 2000 by Cristiane Arguelles RN Communication Enhancement Strategies: call light answered in person device use encouraged Goal: Optimal Functional Ability Outcome: Progressing Intervention: Optimize Functional Ability Recent Flowsheet Documentation Taken 05/09/2025 0600 by Cristiane Arguelles RN Activity Management: activity encouraged Taken 05/09/2025 0400 by Cristiane Arguelles RN Activity Management: activity encouraged Taken 05/09/2025 0200 by Cristiane Arguelles RN Activity Management: activity encouraged Taken 05/09/2025 0000 by Cristiane Arguelles RN Activity Management: activity encouraged Taken 05/08/2025 2200 by Cristiaen Arguelles RN Activity Management: activity encouraged Taken 05/08/20251999 by Cristiane Arguelles RN Activity Management: activity encouraged Goal: Optimal Nutrition Intake Outcome: Progressing Goal: Effective Oxygenation and Ventilation Outcome: Progressing Intervention: Optimize Oxygenation and Ventilation Recent Flowsheet Documentation Taken 05/09/2025 0600 by Cristiane Arguelles RN Head of Bed (HOB) Positioning: HOB elevated Airway/Ventilation Management: airway patency maintained oxygen therapy provided Taken 05/09/2025 0400 by Cristiane Arguelles RN Head of Bed ([facility]) Positioning: HOB elevated Airway/Ventilation Management: airway patency maintained oxygen therapy provided Taken 05/09/2025 0200 by Cristiane Arguelles RN Head of Bed ([facility]) Positioning: HOB elevated Airway/Ventilation Management: airway patency maintained oxygen therapy provided Taken 05/09/2025 0000 by Cristiane Arguelles RN Head of Bed ([facility]) Positioning: HOB elevated Taken 05/08/20250 by Cristiane Arguelles RN Head of Bed ([facility]) Positioning: HOB elevated Airway/Ventilation Management: airway patency maintained oxygen therapy provided Taken 05/08/20251999 by Cristiane Arguelles RN Head of Bed ([facility]) Positioning: HOB elevated Airway/Ventilation Management: oxygen therapy provided airway patency maintained Goal: Improved Sensorimotor Function Outcome: Progressing Intervention: Optimize Range of Motion, Motor Control and Function Recent Flowsheet Documentation Taken 05/09/2025 0600 by Cristiane Arguelles RN Positioning/Transfer Devices: pillows in use Taken 05/09/2025 0400 by Cristiane Arguelles RN Positioning/Transfer Devices: pillows in use Taken 05/09/2025 0200 by Cristiane Arguelles RN Positioning/Transfer Devices: pillows in use Taken 05/09/2025 0000 by Cristiane Arguelles RN Positioning/Transfer Devices: pillows in use Taken 05/08/2025 2200 by Cristiane Arguelles RN Positioning/Transfer Devices: pillows in use Taken 05/08/20251999 by Cristiane Arguelles RN Positioning/Transfer Devices: pillows in use Intervention: Optimize Sensory and Perceptual Ability Recent Flowsheet Documentation Taken 05/09/2025 0600 by Cristiane Arguelles RN Pressure Reduction Techniques: frequent weight shift encouraged Pressure Reduction Devices: pressure-redistributing mattress utilized positioning supports utilized Taken 05/09/2025 0400 by Cristiane Arguelles RN Pressure Reduction Techniques: frequent weight shift encouraged Pressure Reduction Devices: pressure-redistributing mattress utilized positioning supports utilized Taken 05/09/2025 0200 by Cristiane Arguelles RN Pressure Reduction Techniques: frequent weight shift encouraged Pressure Reduction Devices: pressure-redistributing mattress utilized positioning supports utilized Taken 05/09/2025 0000 by Cristiane Arguelles RN Pressure Reduction Techniques: frequent weight shift encouraged Pressure Reduction Devices: pressure-redistributing mattress utilized positioning supports utilized Taken 05/08/2025 2200 by Cristiane Arguelles RN Pressure Reduction Techniques: frequent weight shift encouraged Pressure Reduction Devices: pressure-redistributing mattress utilized positioning supports utilized Taken 05/08/20251999 by Cristiane Arguelles RN Pressure Reduction Techniques: frequent weight shift encouraged Pressure Reduction Devices: pressure-redistributing mattress utilized positioning supports utilized Goal: Safe and Effective Swallow Outcome: Progressing Intervention: Optimize Eating and Swallowing Recent Flowsheet Documentation Taken 05/08/20251999 by Cristiane Arguelles RN Aspiration Precautions: awake/alert before oral intake Goal: Effective Urinary Elimination Outcome: Progressing Problem: Comorbidity Management Goal: Maintenance of COPD Symptom Control Outcome: Progressing Intervention: Maintain COPD (Chronic Obstructive Pulmonary Disease) Symptom Control Recent Flowsheet Documentation Taken 05/08/20251999 by Cristiane Arguelles RN Medication Review/Management: medications reviewed Problem: Fall Injury Risk Goal: Absence of Fall and Fall-Related Injury Outcome: Progressing Intervention: Identify and Manage Contributors Recent Flowsheet Documentation Taken 05/08/20251999 by Cristiane Arguelles RN Medication Review/Management: medications reviewed Intervention: Promote Injury-Free Environment Recent Flowsheet Documentation Taken 05/09/2025 0600 by Cristiane Arguelles RN Safety Promotion/Fall Prevention: activity supervised assistive device/personal items within reach clutter free environment maintained nonskid shoes/slippers when out of bed room organization consistent safety round/check completed Taken 05/09/2025 0400 by Cristiane Arguelles RN Safety Promotion/Fall Prevention: activity supervised assistive device/personal items within reach clutter free environment maintained nonskid shoes/slippers when out of bed room organization consistent safety round/check completed Taken 05/09/2025 0200 by Cristiane Arguelles RN Safety Promotion/Fall Prevention: activity supervised assistive device/personal items within reach clutter free environment maintained nonskid shoes/slippers when out of bed room organization consistent safety round/check completed Taken 05/09/2025 0000 by Cristiane Arguelles RN Safety Promotion/Fall Prevention: activity supervised assistive device/personal items within reach clutter free environment maintained nonskid shoes/slippers when out of bed room organization consistent safety round/check completed Taken 05/08/2025 2200 by Cristiane Arguelles RN Safety Promotion/Fall Prevention: activity supervised assistive device/personal items within reach clutter free environment maintained nonskid shoes/slippers when out of bed room organization consistent safety round/check completed Taken 05/08/20251999 by Cristiane Arguelles RN Safety Promotion/Fall Prevention: activity supervised assistive device/personal items within reach clutter free environment maintained nonskid shoes/slippers when out of bed room organization consistent safety round/check completed Goal Outcome Evaluation: Patient had no acute events overnight. Patient is on 1L NC, AO x 4, and is in sinus rhythm. Plan of care ongoing. * Lashawn Goyal RN - 05/08/2025 6:20 PM EST Goal Outcome Evaluation: VSS. 1L NC. MRI negative for acute stroke. Echo pending. Pain controlled with PRNs. Discharge anticipated tomorrow. * Brooke Arias, MS CCC-KERFER MACHINE OPERATOR - 05/08/2025 11:20 AM EST Problem: Adult Inpatient Plan of Care Goal: Plan of Care Review Outcome: Progressing Flowsheets (Taken 05/08/2025 1120) Progress: improving Plan of Care Reviewed With: patient Goal Outcome Evaluation: Plan of Care Reviewed With: patient Progress: improving KERFER MACHINE OPERATOR Diagnosis: functional speech/language skills, functional cognitive- linguistic skills (05/08/25 1100) KERFER MACHINE OPERATOR evaluation completed. Will sign-off communication - at baseline. Please see note for further details and recommendations. * Lillian Cage - 05/08/2025 9:32 AM EST Goal Outcome Evaluation: Plan of Care Reviewed With: patient Progress: no change Outcome Evaluation: PT eval performed: Pt presenting close to baseline. Pt able to ambulate 220', modif indep, wary that dizziness may occur but no dizziness present even with including multiple headpositions, antalgic gait due to pain in low back, neck. No dizziness thoughout session. Recommend d/c home with benefit for OP PT to address chronic back/ neck pain. No further IPPT warranted Anticipated Discharge Disposition (PT): home with assist, home with outpatient therapy services * Ghazala Rebollar OT - 05/08/2025 9:25 AM EST Goal Outcome Evaluation: Plan of Care Reviewed With: patient Outcome Evaluation: OT initial eval and expanded chart review completed. Pt presents with multiple comorbidities, but appears at or near baseline with mobility and ADL's. No further skilled OT services indicate at this time. Recommend home with family when medically appropriate. Anticipated Discharge Disposition (OT): home with assist * Ghazala Alvarado RN - 05/08/2025 7:53 AM EST Problem: Adult Inpatient Plan of Care Goal: Plan of Care Review Outcome: Progressing Flowsheets (Taken 05/08/2025 0753) Progress: no change Plan of Care Reviewed With: patient Goal: Patient-Specific Goal (Individualized) Outcome: Progressing Goal: Absence of Hospital-Acquired Illness or Injury Outcome: Progressing Intervention: Identify and Manage Fall Risk Recent Flowsheet Documentation Taken 05/08/2025 0600 by Ghazala Alvarado RN Safety Promotion/Fall Prevention: activity supervised clutter free environment maintained fall prevention program maintained safety round/check completed Taken 05/08/2025 0400 by Ghazala Alvarado RN Safety Promotion/Fall Prevention: activity supervised clutter free environment maintained fall prevention program maintained safety round/check completed room organization consistent Taken 05/08/2025 0232 by Ghazala Alvarado RN Safety Promotion/Fall Prevention: activity supervised clutter free environment maintained fall prevention program maintained safety round/check completed room organization consistent Intervention: Prevent Skin Injury Recent Flowsheet Documentation Taken 05/08/2025 0600 by Ghazala Alvarado RN Body Position: position changed independently Skin Protection: incontinence pads utilized Taken 05/08/2025 0400 by Ghazala Alvarado RN Body Position: position changed independently Skin Protection: incontinence pads utilized Taken 05/08/2025 0232 by Ghazala Alvarado RN Body Position: position changed independently Skin Protection: incontinence pads utilized Intervention: Prevent Infection Recent Flowsheet Documentation Taken 05/08/2025 0600 by Ghazala Alvarado RN Infection Prevention: environmental surveillance performed Taken 05/08/2025 0400 by Ghazala Alvarado RN Infection Prevention: environmental surveillance performed Taken 05/08/2025 0232 by Ghazala Alvarado RN Infection Prevention: environmental surveillance performed Goal: Optimal Comfort and Wellbeing Outcome: Progressing Intervention: Monitor Pain and Promote Comfort Recent Flowsheet Documentation Taken 05/08/2025 0540 by Ghazala Alvarado RN Pain Management Interventions: pain medication given Taken 05/08/2025 0232 by Ghazala Alvarado RN Pain Management Interventions: position adjusted Intervention: Provide Person-Centered Care Recent Flowsheet Documentation Taken 05/08/2025 023 by Ghazala Alvarado RN Trust Relationship/Rapport: care explained questions answered Goal: Readiness for Transition of Care Outcome: Progressing Intervention: Mutually Develop Transition Plan Recent Flowsheet Documentation Taken 05/08/2025 0355 by Ghazala Alvarado RN Transportation Anticipated: family or friend will provide Patient/Family Anticipated Services at Transition: none Patient/Family Anticipates Transition to: home Taken 05/08/2025 035 by Ghazala Alvarado RN Equipment Currently Used at Home: oxygen respiratory supplies nebulizer Problem: Stroke, Ischemic (Includes Transient Ischemic Attack) Goal: Optimal Coping Outcome: Progressing Goal: Effective Bowel Elimination Outcome: Progressing Goal: Optimal Cerebral Tissue Perfusion Outcome: Progressing Goal: Optimal Cognitive Function Outcome: Progressing Goal: Improved Communication Skills Outcome: Progressing Goal: Optimal Functional Ability Outcome: Progressing Intervention: Optimize Functional Ability Recent Flowsheet Documentation Taken 05/08/2025 0600 by Ghazala Alvarado RN Activity Management: activity minimized Taken 05/08/2025 0400 by Ghazala Alvarado RN Activity Management: activity minimized Taken 05/08/2025 0232 by Ghazala Alvarado RN Activity Management: activity minimized Goal: Optimal Nutrition Intake Outcome: Progressing Goal: Effective Oxygenation and Ventilation Outcome: Progressing Intervention: Optimize Oxygenation and Ventilation Recent Flowsheet Documentation Taken 05/08/2025 0600 by Ghazala Alvarado RN Head of Bed ([facility]) Positioning: HOB elevated Taken 05/08/2025 0400 by Ghazala Alvarado RN Head of Bed ([facility]) Positioning: HOB elevated Taken 05/08/2025 0232 by Ghazala Alvarado RN Head of Bed ([facility]) Positioning: HOB elevated Goal: Improved Sensorimotor Function Outcome: Progressing Intervention: Optimize Range of Motion, Motor Control and Function Recent Flowsheet Documentation Taken 05/08/2025 0600 by Ghazala Alvarado RN Positioning/Transfer Devices: pillows in use Taken 05/08/2025 0400 by Ghazala Alvarado RN Positioning/Transfer Devices: pillows in use Taken 05/08/2025 0232 by Ghazala Alvarado RN Positioning/Transfer Devices: pillows in use Intervention: Optimize Sensory and Perceptual Ability Recent Flowsheet Documentation Taken 05/08/2025 0600 by Ghazala Alvarado RN Pressure Reduction Techniques: frequent weight shift encouraged Pressure Reduction Devices: pressure-redistributing mattress utilized Taken 05/08/2025 0400 by Ghazala Alvarado RN Pressure Reduction Techniques: frequent weight shift encouraged Pressure Reduction Devices: pressure-redistributing mattress utilized Taken 05/08/2025 0232 by Ghazala Alvarado RN Pressure Reduction Techniques: frequent weight shift encouraged Pressure Reduction Devices: pressure-redistributing mattress utilized Goal: Safe and Effective Swallow Outcome: Progressing Goal: Effective Urinary Elimination Outcome: Progressing Goal Outcome Evaluation: Plan of Care Reviewed With: patient Progress: no change documented in this encounter Miscellaneous Notes * Therapy Evaluation - Brooke Arias MS [facility]-KERFER MACHINE OPERATOR - 05/08/2025 11:21 AM EST Acute Care - Speech Language Pathology Initial Evaluation [facility] Patient Name: Radu Turk : 1960 Today's Date: 05/08/2025 Admit Date: 05/08/2025 Visit Dx: No diagnosis found. Patient Active Problem List Diagnosis Vertigo Chronic obstructive pulmonary disease Neuropathy Anemia (HFpEF) heart failure with preserved ejection fraction Past Medical History: Diagnosis Date COPD (chronic obstructive pulmonary disease) Past Surgical History: Procedure Laterality Date BACK SURGERY KERFER MACHINE OPERATOR Recommendation and Plan Recommended discharge disposition is based on the functional assessment performed by PT/OT/Speech therapy (as applicable) and may not reflect the medical necessity determined by your provider or services covered by an individual patient's insurance plan or patient resource. KERFER MACHINE OPERATOR Diagnosis: functional speech/language skills, functional cognitive- linguistic skills (05/08/25 1100) [facility] Criteria for Skilled Therapy Interventions Met: no problems identified which require skilled intervention (05/08/25 1100) Therapy Frequency (KERFER MACHINE OPERATOR [facility]): evaluation only (05/08/25 1100) Progress: improving (05/08/25 1120) KERFER MACHINE OPERATOR EVALUATION (Last 72 Hours) KERFER MACHINE OPERATOR [facility]LC Evaluation Row Name 05/08/25 1100 Communication Assessment/Intervention Document Type discharge evaluation/summary -AW Subjective Information no complaints -AW Patient Observations alert;cooperative -AW Patient/Family/Caregiver Comments/Observations none -AW Patient Effort good -AW Symptoms Noted During/After Treatment none -AW General Information Patient Profile Reviewed yes -AW Pertinent History Of Current Problem vertigo -AW Precautions/Limitations, Vision WFL -AW Precautions/Limitations, Hearing WFL -AW Prior Level of Function-Communication WFL -AW Plans/Goals Discussed with patient -AW Barriers to Rehab none identified -AW Patient's Goals for Discharge return to home -AW Comprehension Assessment/Intervention Comprehension Assessment/Intervention Auditory Comprehension -AW Auditory Comprehension Assessment/Intervention Auditory Comprehension (Communication) WFL -AW Able to Identify Objects/Pictures (Communication) WFL -AW Answers Questions (Communication) yes/no;wh questions;simple;personal;WFL -AW Able to Follow Commands (Communication) WFL -AW Narrative Discourse conversational level;WFL -AW Expression Assessment/Intervention Expression Assessment/Intervention verbal expression -AW Verbal Expression Assessment/Intervention Verbal Expression WFL -AW Automatic Speech (Communication) response to greeting -AW Spontaneous/Functional Words simple;WFL -AW Sentence Formulation simple;WFL -AW Conversational Discourse/Fluency WFL -AW Oral Motor Structure and Function Oral Motor Structure and Function WFL -AW Dentition Assessment natural, present and adequate -AW Mucosal Quality moist, healthy -AW Oral Musculature and Cranial Nerve Assessment Oral Motor General Assessment WFL -AW Motor Speech Assessment/Intervention Motor Speech Function WFL -AW Cognitive Assessment Intervention- KERFER MACHINE OPERATOR Cognitive Function (Cognition) WFL -AW Orientation Status (Cognition) awareness of basic personal information;place;person;time;situation;WNL -AW Attention (Cognitive) sustained;WFL -AW KERFER MACHINE OPERATOR Evaluation Clinical Impressions KERFER MACHINE OPERATOR Diagnosis functional speech/language skills;functional cognitive-linguistic skills -AW Rehab Potential/Prognosis good -AW SLC Criteria for Skilled Therapy Interventions Met no problems identified which require skilled intervention -AW Functional Impact no impact on function -AW Recommendations Therapy Frequency (KERFER MACHINE OPERATOR [facility]LC) evaluation only -AW User Timmons (r) = Recorded By, (t) = Taken By, (c) = Cosigned By Initials Name Effective Dates AW Brooke Arias MS [facility]-KERFER MACHINE OPERATOR 07/20/22 - EDUCATION The patient has been educated in the following areas: Communication Impairment. Time Calculation: Time Calculation- KERFER MACHINE OPERATOR Row Name 05/08/25 1120 Time Calculation- KERFER MACHINE OPERATOR KERFER MACHINE OPERATOR Start Time 0950 -AW KERFER MACHINE OPERATOR Stop Time 1015 -AW KERFER MACHINE OPERATOR Time Calculation (min) 25 min -AW KERFER MACHINE OPERATOR Received On 05/08/25 - User Timmons (r) = Recorded By, (t) = Taken By, (c) = Cosigned By Initials Name Provider Type Brooke Arias MS CCC-KERFER MACHINE OPERATOR Speech and Language Pathologist Therapy Charges for Today Code Description Service Date Service Provider Modifiers Qty [id number] [facility] EVAL SPEECH AND PROD W LANG 2 05/08/2025 Brooke Arias, MS CCC-KERFER MACHINE OPERATOR GN 1 Brooke Arias MS CCC-TYLER 05/08/2025 documented in this encounter Plan of Treatment Not on file documented as of this encounter Procedures Procedure Name Priority Date/Time Associated Diagnosis Comments ECHO COMPLETE W/ DOPPLER AND COLOR FLOW Routine 05/08/2025 2:20 PM EST MRI BRAIN W WO CONTRAST Routine 05/08/2025 12:00 PM EST POCT GLUCOSE FINGERSTICK Routine 05/08/2025 8:05 AM EST CBC (NO DIFF) Urgent 05/08/2025 7:44 AM EST MAGNESIUM Urgent 05/08/2025 7:44 AM EST HEMOGLOBIN A1C Urgent 05/08/2025 7:44 AM EST LIPID PANEL Urgent 05/08/2025 7:44 AM EST BASIC METABOLIC PANEL Urgent 05/08/2025 7:44 AM EST ECG 12-LEAD Routine 05/08/2025 5:44 AM EST POCT GLUCOSE FINGERSTICK Routine 05/08/2025 2:46 AM EST SCANNED - IMAGING 05/08/2025 SCANNED - IMAGING 05/08/2025 SCANNED - IMAGING 05/08/2025 SCANNED - IMAGING 05/08/2025 SCANNED - IMAGING 05/08/2025 SCANNED - LABS 05/08/2025 documented in this encounter Results * ECHO COMPLETE W/ DOPPLER AND COLOR FLOW (05/08/2025 2:20 PM EST) [facility] EF(MOD-bp) 56.8 % LVIDd 4.0 cm LVIDs 2.8 cm IVSd 1.00 cm LVPWd 1.00 cm FS 30.0 % IVS/LVPW 1.00 cm ESV(cubed) 22.0 ml LV Sys Vol (BSA corrected) 33.6 cm2 EDV(cubed) 64.0 ml LV Lee Vol (BSA corrected) 68.9 cm2 LV mass(C)d 127.1 grams LVOT area 3.1 cm2 LVOT diam 2.00 cm EDV(MOD-sp2) 111.0 ml EDV(MOD-sp4) 120.0 ml ESV(MOD-sp2) 41.7 ml ESV(MOD-sp4) 58.6 ml SV(MOD-sp2) 69.3 ml SV(MOD-sp4) 61.4 ml SVi(MOD-SP2) 39.8 ml/m2 SVi(MOD-SP4) 35.2 ml/m2 SVi (LVOT) 33.8 ml/m2 EF(MOD-sp2) 62.4 % EF(MOD-sp4) 51.2 % MV E max clifford 69.7 cm/sec MV A max clifford 52.4 cm/sec MV dec time 0.35 sec MV E/A 1.33 Med Peak E' Clifford 12.8 cm/sec Lat Peak E' Clifford 20.9 cm/sec Avg E/e' ratio 4.14 SV(LVOT) 58.9 ml RV Base 3.8 cm TAPSE (>1.6) 1.75 cm RV S' 12.1 cm/sec LA dimension (2D) 3.0 cm LV V1 max 87.3 cm/sec LV V1 max PG 3.1 mmHg LV V1 mean PG 1.50 mmHg LV V1 VTI 18.8 cm Ao pk clifford 128.0 cm/sec Ao max PG 6.6 mmHg Ao mean PG 3.5 mmHg Ao V2 VTI 30.8 cm AIDEN(I,D) 1.91 cm2 Dimensionless Index 0.61 (DI) Ao root diam 3.4 cm Ao root area (BSA corrected) 2.0 cm2 CV ECHO SHUNT ASSESSMENT PERFORMED (HIDDEN SCRIPTING) 1 Anatomical Region Laterality Modality Ultrasound Narrative 05/08/2025 6:28 PM EST Left ventricular systolic function is normal. Calculated left ventricular EF = 56.8% Left ventricular ejection fraction appears to be 56 - 60%. Left ventricular diastolic function was normal. Saline test results are negative. No evidence of intracardiac shunting. No hemodynamically significant valvular abnormalities No prior study for comparison Left Ventricle Left ventricular systolic function is normal. Calculated left ventricular EF = 56.8% Left ventricular ejection fraction appears to be 56 - 60%. Normal left ventricular cavity size and wall thickness noted. All left ventricular wall segments contract normally. Left ventricular diastolic function was normal. Right Ventricle Normal right ventricular cavity size, wall thickness, systolic function and septal motion noted. Left Atrium Normal left atrial size and volume noted. Saline test results are negative. Right Atrium Normal right atrial cavity size noted. The inferior vena cava is normally sized. Normal IVC inspiratory collapse of greater than 50% noted. Mitral Valve The mitral valve is grossly normal in structure. Trace mitral valve regurgitation is present. No significant mitral valve stenosis is present. Tricuspid Valve The tricuspid valve is grossly normal in structure. Physiologic tricuspid valve regurgitation is present. Insufficient TR velocity profile to estimate the right ventricular systolic pressure. No evidence of significant tricuspid valve stenosis is present. Aortic Valve The aortic valve is not well visualized. The aortic valve is grossly normal in structure. No significant aortic valve regurgitation is present. No hemodynamically significant aortic valve stenosis is present. Pulmonic Valve The pulmonic valve is grossly normal in structure. There is no significant pulmonic valve regurgitation present. There is no pulmonic valve stenosis present. Pericardium The pericardium is normal. There is no evidence of pericardial effusion. . Greater Vessels No dilation of the aortic root is present. Aortic root = 3.4 cm Aortic root (corrected for BSA) = 2.0 cm No dilation of the sinuses of Valsalva is present. Study Quality The study is technically difficult for diagnosis. The quality of the study is limited due to patient body habitus . Shunt Assessment Verbal consent was obtained from the patient for use of agitated saline to assess for shunting. A total of 10 mL of agitated saline was administered. Wall Scoring Score Index: 1.00 The left ventricular wall motion is normal. us Ramez Magallon PA-C CV ECHO ORDERABLES Final Result * MRI Brain With & Without Contrast (05/08/2025 12:00 PM EST) Anatomical Region Laterality Modality Head, Neck N/A Magnetic Resonan ce 05/08/2025 6:03 PM EST Impressions 05/08/2025 6:10 PM EST Impression: No acute intracranial findings. No evidence of intracranial metastatic disease. Electronically Signed: Moisés Schmidt MD 05/08/2025 6:10 PM EST Workstation ID: [id number] Narrative 05/08/2025 6:10 PM EST MRI BRAIN W WO CONTRAST Date of Exam: 05/08/2025 11:32 AM EST Indication: Vertigo with gait instability, acute stroke suspected, h/o lung nodule, assess for mets. Comparison: None available. Technique: Routine multiplanar/multisequence sequence images of the brain were obtained before and after the uneventful administration of Vueway. Findings: No acute infarct or focal diffusion restriction. There are couple tiny/punctate scattered T2/FLAIR hyperintense foci in the white matter which are nonspecific and can be seen in the setting of chronic small vessel ischemic change. No intracranial hemorrhage. No intracranial mass. No abnormal intracranial enhancement on the postcontrast sequences. No extra-axial collections. No midline shift or herniation. Normal size and configuration of the ventricles. The major intracranial vascular structures appear unremarkable. Normal appearance of the orbits. The paranasal sinuses and mastoid air cells are clear. The cerebellopontine angles and midline structures are normal. No acute or suspicious bony findings. Procedure Note Moisés Schmidt MD - 05/08/2025 MRI BRAIN W WO CONTRAST Date of Exam: 05/08/2025 11:32 AM EST Indication: Vertigo with gait instability, acute stroke suspected, h/olung nodule, assess for mets. Comparison: None available. Technique: Routine multiplanar/multisequence sequence images of the brainwere obtained before and after the uneventful administration of Vueway. Findings: No acute infarct or focal diffusion restriction. There are coupletiny/punctate scattered T2/FLAIR hyperintense foci in the white matterwhich are nonspecific and can be seen in the setting of chronic smallvessel ischemic change. No intracranial hemorrhage. No intracranial mass. No abnormal intracranial enhancement onthe postcontrast sequences. No extra-axial collections. No midline shiftor herniation. Normal size and configuration of the ventricles. The majorintracranial vascular structures appear unremarkable. Normal appearance of the orbits. The paranasalsinuses and mastoid air cells are clear. The cerebellopontine angles andmidline structures are normal. No acute or suspicious bony findings. IMPRESSION: Impression: No acute intracranial findings. No evidence of intracranial metastaticdisease. Electronically Signed: Moisés Schmidt MD 05/08/2025 6:10 PM EST Workstation ID: [id number] Ramez Magallon PA-C IMG MRI ORDERABLES Final Result * POC Glucose Once (05/08/2025 8:05 AM EST) Glucose 87 70 - 130 mg/dL 05/08/2025 8:08 AM EST [facility] Comment:Serial Number: [id number] Blood 05/08/2025 8:05 AM EST 05/08/2025 8:08 AM EST Renee Lawler MD POINT OF CARE TEST ORDERABLES Final Result [facility]
[address] [place] [address], * Magnesium (05/08/2025 7:44 AM EST) Magnesium 2.1 1.6 - 2.4 mg/dL 05/08/2025 8:41 AM EST [facility] Blood Venipuncture / Unknown 05/08/2025 7:44 AM EST 05/08/2025 8:18 AM EST us Vikas Grossman MD LAB BLOOD ORDERABLES Final Re sult [facility]
[address] [place] [address], * (ABNORMAL) Basic Metabolic Panel (05/08/2025 7:44 AM EST) [facility] Glucose 84 65 - 99 mg/dL 05/08/2025 8:41 AM EST [facility] BUN 11.3 8.0 - 23.0 mg/dL 05/08/2025 8:41 AM EST [facility] Creatinine 0.71(L) 0.76 - 1.27 mg/dL 05/08/2025 8:41 AM EST [facility] Sodium 137 136 - 145 mmol/L 05/08/2025 8:41 AM EST [facility] Potassium 3.8 3.5 - 5.2 mmol/L 05/08/2025 8:41 AM EST [facility] Chloride 102 98 - 107 mmol/L 05/08/2025 8:41 AM EST [facility] CO2 28.0 22.0 - 29.0 mmol/L 05/08/2025 8:41 AM EST [facility] Calcium 8.5(L) 8.6 - 10.5 mg/dL 05/08/2025 8:41 AM EST [facility] BUN/Creatinine Ratio 15.9 7.0 - 25.0 05/08/2025 8:41 AM EST [facility] Anion Gap 7.0 5.0 - 15.0 mmol/L 05/08/2025 8:41 AM EST [facility] eGFR 101.2 >60.0 mL/min/1.7 3 05/08/2025 8:41 AM EST [facility] Blood Venipuncture / Unknown 05/08/2025 7:44 AM EST 05/08/2025 8:18 AM EST [facility] - 05/08/2025 8:41 AM EST GFR Categories in Chronic Kidney Disease (CKD) GFR Category GFR (mL/min/1.73) Interpretation G1 90 or greater Normal or high (1) G2 60-89 Mild decrease (1) G3a 45-59 Mild to moderate decrease G3b 30-44 Moderate to severe decrease G4 15-29 Severe decrease G5 14 or less Kidney failure (1)In the absence of evidence of kidney disease, neither GFR category G1 or G2 fulfill the criteria for CKD. eGFR calculation 2020 CKD-EPI creatinine equation, which does not include race as a factor us Vikas Grossman MD LAB BLOOD ORDERABLES Final Re sult [facility]
[address] [place] [address], * (ABNORMAL) CBC (No Diff) (05/08/2025 7:44 AM EST) WBC 5.68 3.40 - 10.80 10*3/mm3 05/08/2025 8:32 AM EST [facility] RBC 3.87(L) 4.14 - 5.80 10*6/mm3 05/08/2025 8:32 AM EST [facility] Hemoglobin 10.9(L) 13.0 - 17.7 g/dL 05/08/2025 8:32 AM [facility] Hematocrit 34.7(L) 37.5 - 51.0 % 05/08/2025 8:32 AM EST [facility] MCV 89.7 79.0 - 97.0 fL 05/08/2025 8:32 AM EST [facility] MCH 28.2 26.6 - 33.0 pg 05/08/2025 8:32 AM EST [facility] MCHC 31.4(L) 31.5 - 35.7 g/dL 05/08/2025 8:32 AM [facility] RDW 16.5(H) 12.3 - 15.4 % 05/08/2025 8:32 AM EST [facility] RDW-SD 54.1(H) 37.0 - 54.0 fl 05/08/2025 8:32 AM EST [facility] MPV 8.9 6.0 - 12.0 fL 05/08/2025 8:32 AM EST [facility] Platelets 364 140 - 450 10*3/mm3 05/08/2025 8:32 AM EST [facility] Blood Venipuncture / Unknown 05/08/2025 7:44 AM EST 05/08/2025 8:17 AM EST us Vikas Grossman MD LAB BLOOD ORDERABLES Final Re sult [facility]
[address] [place] [address], * (ABNORMAL) Lipid Panel (05/08/2025 7:44 AM EST) Total Cholesterol 121 0 - 200 mg/dL 05/08/2025 8:41 AM EST [facility] Triglycerides 100 0 - 150 mg/dL 05/08/2025 8:41 AM EST [facility] HDL Cholesterol 38(L) 40 - 60 mg/dL 05/08/2025 8:41 AM EST [facility] LDL Cholesterol 64 0 - 100 mg/dL 05/08/2025 8:41 AM EST [facility] VLDL Cholesterol 19 5 - 40 mg/dL 05/08/2025 8:41 AM EST [facility] LDL/HDL Ratio 1.66 05/08/2025 8:41 AM EST [facility] Blood Venipuncture / Unknown 05/08/2025 7:44 AM EST 05/08/2025 8:18 AM EST Narrative [facility] - 05/08/2025 8:41 AM EST Cholesterol Reference Ranges (U.S. Department of Health and Human Services ATP III Classifications) Desirable <200 mg/dL Borderline High 200-239 mg/dL High Risk >240 mg/dL Triglyceride Reference Ranges (U.S. Department of Health and Human Services ATP III Classifications) Normal <150 mg/dL Borderline High 150-199 mg/dL High 200-499 mg/dL Very High >500 mg/dL HDL Reference Ranges (U.S. Department of Health and Human Services ATP III Classifications) Low <40 mg/dl (major risk factor for CHD) High >60 mg/dl ('negative' risk factor for CHD) LDL Reference Ranges (U.S. Department of Health and Human Services ATP III Classifications) Optimal <100 mg/dL Near Optimal 100-129 mg/dL Borderline High 130-159 mg/dL High 160-189 mg/dL Very High >189 mg/dL LDL is calculated using the NIH LDL-C calculation. Ramez Magallon PA-C LAB BLOOD ORDERABLE S Final Result Performing Organization Address [facility] de Phone Number [facility]
[address] [place] [address], * (ABNORMAL) Hemoglobin A1c (05/08/2025 7:44 AM EST) Hemoglobin A1C 6.07(H) 4.80 - 5.60 % 05/08/2025 8:52 AM EST [facility] Blood Venipuncture / Unknown 05/08/2025 7:44 AM EST 05/08/2025 8:17 AM EST Narrative [facility] - 05/08/2025 8:52 AM EST Hemoglobin A1C Ranges: Increased Risk for Diabetes 5.7% to 6.4% Diabetes >= 6.5% Diabetic Goal < 7.0% Ramez Magallon PA-C LAB BLOOD ORDERABLE S Final Result Performing Organization Address [facility]/[employer] de Phone Number [facility]
[address] [place] [address], * ECG 12 Lead Bradycardia (05/08/2025 5:44 AM EST) QT Interval 490 ms ECG QTC Interval 455 ms ECG 05/08/2025 5:44 AM EST 05/09/2025 3:21 PM EST Narrative BH ECG - 05/09/2025 3:21 PM EST Test Reason : Bradycardia Blood Pressure : */* mmHG Vent. Rate : 52 BPM Atrial Rate : 52 BPM P-R Int : 144 ms QRS Dur : 74 ms QT Int : 490 ms P-R-T Axes : 86 76 76 degrees QTcB Int : 455 ms Sinus bradycardia Otherwise normal ECG No previous ECGs available Confirmed by MD Cardoso John ([id number]) on 05/09/2025 3:21:20 PM Referred By: Confirmed By: Vikas Cardoso MD Procedure Note Vikas Cardoso III, MD - 05/09/2025 Test Reason : Bradycardia Blood Pressure : */* mmHG Vent. Rate : 52 BPM Atrial Rate : 52 BPM P-R Int : 144 ms QRS Dur : 74 ms QT Int : 490 ms P-R-T Axes : 86 76 76 degrees QTcB Int : 455 ms Sinus bradycardia Otherwise normal ECG No previous ECGs available Confirmed by MD Cardoso John ([id number]) on 05/09/2025 3:21:20 PM Referred By: Confirmed By: Vikas Cardoso MD Vikas Grossman MD ECG ORDERABLES Final Result ECG * POC Glucose Once (05/08/2025 2:46 AM EST) Glucose 77 70 - 130 mg/dL 05/08/2025 2:48 AM EST [facility] Comment:Serial Number: [id number] Blood 05/08/2025 2:46 AM EST 05/08/2025 2:48 AM EST Ghazala Frost MD POINT OF CARE TEST ORDERABLES Final Result [facility]
[address] [place] [address], [place] [phone] * LABS SCANNED (05/08/2025) Result [facility] LAB BLOOD ORDERABLES Final Re sult * IMAGING SCANNED (05/08/2025) Anatomical Region Laterality Modality Radiographic Renata ging Result [facility] IMG DIAGNOSTIC IMAGING ORDERA BLES Final Result * IMAGING SCANNED (05/08/2025) Anatomical Region Laterality Modality Radiographic Renata ging Result [facility] IMG DIAGNOSTIC IMAGING ORDERA BLES Final Result * IMAGING SCANNED (05/08/2025) Anatomical Region Laterality Modality Radiographic Renata ging Result [facility] IMG DIAGNOSTIC IMAGING ORDERA BLES Final Result * IMAGING SCANNED (05/08/2025) Anatomical Region Laterality Modality Radiographic Renata ging Result [facility] IMG DIAGNOSTIC IMAGING ORDERA BLES Final Result * IMAGING SCANNED (05/08/2025) Anatomical Region Laterality Modality Radiographic Renata ging Result [facility] IMG DIAGNOSTIC IMAGING ORDERA BLES Final Result documented in this encounter Visit Diagnoses Diagnosis Vertigo- Primary Dizziness and giddiness Chronic obstructive pulmonary disease Neuropathy Mononeuritis of unspecified site Anemia Unspecified anemia (HFpEF) heart failure with preserved ejection fraction documented in this encounter Admitting Diagnoses Diagnosis Vertigo Dizziness and giddiness documented in this encounter Administered Medications Inactive Administered Medications - up to 3 most recent administrations Medication Order MAR Action Action Date Dose Rate Site acetaminophen (TYLENOL) 160 MG/5ML oral solution 650 mg 650 mg, Oral, Every 4 Hours PRN, Mild Pain, Starting on 05/08/25 at 0451, If given for fever, use fever parameter: fever greater than 100.4 F Based on patient request - if ordered for moderate or severe pain, provider allows for administration of a medication prescribed for a lower pain scale. Do not exceed 4 grams of acetaminophen in a 24 hr period. Max dose of 2gm for AST/ALT greater than 120 units/L. If given for pain, use the following pain scale: Mild Pain = Pain Score of 1-3, CPOT 1-2 Moderate Pain = Pain Score of 4-6, CPOT 3-4 Severe Pain = Pain Score of 7-10, CPOT 5-8 acetaminophen (TYLENOL) suppository 650 mg 650 mg, Rectal, Every 4 Hours PRN, Mild Pain, Starting on 05/08/25 at 0451, If given for fever, use fever parameter: fever greater than 100.4 F Based on patient request - if ordered for moderate or severe pain, provider allows for administration of a medication prescribed for a lower pain scale. Do not exceed 4 grams of acetaminophen in a 24 hr period. Max dose of 2gm for AST/ALT greater than 120 units/L. If given for pain, use the following pain scale: Mild Pain = Pain Score of 1-3, CPOT 1-2 Moderate Pain = Pain Score of 4-6, CPOT 3-4 Severe Pain = Pain Score of 7-10, CPOT 5-8 acetaminophen (TYLENOL) tablet 650 mg 650 mg, Oral, Every 4 Hours PRN, Mild Pain, Starting on 05/08/25 at 0451, If given for fever, use fever parameter: fever greater than 100.4 F Based on patient request - if ordered for moderate or severe pain, provider allows for administration of a medication prescribed for a lower pain scale. Do not exceed 4 grams of acetaminophen in a 24 hr period. Max dose of 2gm for AST/ALT greater than 120 units/L. If given for pain, use the following pain scale: Mild Pain = Pain Score of 1-3, CPOT 1-2 Moderate Pain = Pain Score of 4-6, CPOT 3-4 Severe Pain = Pain Score of 7-10, CPOT 5-8 Given 05/09/2025 10:07 AM EST 650 mg Given 05/08/2025 10:57 PM EST 650 mg arformoterol (BROVANA) nebulizer solution 15 mcg 15 mcg, Nebulization, 2 Times Daily - RT, First dose on 05/08/25 at 0930, Keep refrigerated. Given 05/09/2025 9:58 AM EST 15 mcg Given 05/08/2025 8:09 PM EST 15 mcg aspirin chewable tablet 81 mg 81 mg, Oral, Daily, First dose on 05/08/25 at 0900, If patient fails dysphagia, ID option MUST be given. Do not exceed 4 grams of aspirin in a 24 hr period. If given for pain, use the following pain scale: Mild Pain = Pain Score of 1-3, CPOT 1-2 Moderate Pain = Pain Score of 4-6, CPOT 3-4 Severe Pain = Pain Score of 7-10, CPOT 5-8 Given 05/09/2025 8:31 AM EST 81 mg Given 05/08/2025 9:01 AM EST 81 mg bisacodyl (DULCOLAX) EC tablet 5 mg 5 mg, Oral, Daily PRN, Constipation, Use if polyethylene glycol is ineffective, Starting on 05/08/25 at 0451, Use if no bowel movement after 12 hours. Swallow whole. Do not crush, split, or chew tablet. bisacodyl (DULCOLAX) suppository 10 mg 10 mg, Rectal, Daily PRN, Constipation, Use if bisacodyl oral is ineffective, Starting on 05/08/25 at 0451, Use if no bowel movement after 12 hours. Hold for diarrhea DULoxetine (CYMBALTA) DR capsule 60 mg 60 mg, Oral, 2 Times Daily, First dose on 05/08/25 at 0900, Do not crush or chew the capsules or tablets. The drug may not work as designed if the capsule or tablet is crushed or chewed. Swallow whole. Caution: Look alike/sound alike drug alert. Capsule may be opened and sprinkled on applesauce or apple juice. Do not crush or chew capsule. Given 05/09/2025 8:32 AM EST 60 mg Given 05/08/2025 10:57 PM EST 60 mg Given 05/08/2025 6:11 PM EST 60 mg Gadopiclenol (VUEWAY) injection 7.5 mL 7.5 mL, Intravenous, Once in Imaging, On 05/08/25 at 1245, For 1 dose, Administer undiluted as intravenous bolus at 2 ml/sec. Flush with NS after injection. Given 05/08/2025 11:47 AM EST 5 mL heparin (porcine) 5000 UNIT/ML injection 5,000 Units 5,000 Units, Subcutaneous, Every 8 Hours Scheduled, First dose on 05/08/25 at 0600, Indications: VTE ProphylaxisIndications:VTE Prophylaxis Given 05/08/2025 10:58 PM EST 5,000 Units Left Lower Abdomen Given 05/08/2025 2:45 PM EST 5,000 Units L eft Arm Given 05/08/2025 5:42 AM EST 5,000 Units L eft Lower Abdomen ipratropium-albuterol (DUO-NEB) nebulizer solution 3 mL 3 mL, Nebulization, Every 4 Hours PRN, Shortness of Air, Wheezing, Starting on 05/08/25 at 0450, Include Respiratory Treatment Education Given 05/08/2025 6:10 AM EST 3 mL oxyCODONE-acetaminophen (PERCOCET) 7.5-325 MG per tablet 1 tablet 1 tablet, Oral, Every 6 Hours PRN, Moderate Pain, Starting on 05/08/25 at 0451, Based on patient request - if ordered for moderate or severe pain, provider allows for administration of a medication prescribed for a lower pain scale. [WENCESLAO] Do not exceed 4 grams of acetaminophen in a 24 hr period. Max dose of 2gm for AST/ALT greater than 120 units/L If given for pain, use the following pain scale: Mild Pain = Pain Score of 1-3, CPOT 1-2 Moderate Pain = Pain Score of 4-6, CPOT 3-4 Severe Pain = Pain Score of 7-10, CPOT 5-8 Given 05/09/2025 8:37 AM EST 1 tablet Given 05/08/2025 6:11 PM EST 1 tablet Given 05/08/2025 11:06 AM EST 1 tablet polyethylene glycol (MIRALAX) packet 17 g 17 g, Oral, Daily PRN, Constipation, Use if senna-docusate is ineffective, Starting on 05/08/25 at 0451, Use if no bowel movement after 12 hours. Mix in 6-8 ounces of water. Use 4-8 ounces of water, tea, or juice for each 17 gram dose. revefenacin (YUPELRI) nebulizer solution 175 mcg 175 mcg, Nebulization, Daily - RT, First dose on 05/08/25 at 0930 Given 05/09/2025 10:02 AM EST 175 mcg Given 05/08/2025 7:44 AM EST 175 mcg sennosides-docusate (PERICOLACE) 8.6-50 MG per tablet 2 tablet 2 tablet, Oral, 2 Times Daily PRN, Constipation, Starting on 05/08/25 at 0451, Start bowel management regimen if patient has not had a bowel movement after 12 hours. sodium chloride 0.9 % flush 10 mL 10 mL, Intravenous, Every 12 Hours Scheduled, First dose on 05/08/25 at 0900 Given 05/09/2025 8:33 AM EST 10 mL Given 05/08/2025 10:58 PM EST 10 mL Given 05/08/2025 9:03 AM EST 10 mL sodium chloride 0.9 % flush 10 mL 10 mL, Intravenous, As Needed, Line Care, Starting on 05/08/25 at 0232 sodium chloride 0.9 % flush 10 mL 10 mL, Intravenous, Every 12 Hours Scheduled, First dose on 05/08/25 at 0900 Given 05/09/2025 8:33 AM EST 10 mL Given 05/08/2025 10:58 PM EST 10 mL Given 05/08/2025 9:02 AM EST 10 mL sodium chloride 0.9 % infusion 40 mL 40 mL, Intravenous, at 100 mL/hr, As Needed, Line Care, Starting on 05/08/25 at 0232, Following administration of an IV intermittent medication, flush line with 40mL NS at 100mL/hr. documented in this encounter Active and Recently Administered Medications Times are shown in EST. Scheduled Medication Order 05/07/2025 05/08/2025 05/09/2025 arformoterol (BROVANA) nebulizer solution 15 mcg(Linked Group 1) 15 mcg, Nebulization, 2 Times Daily - RT, First dose on 05/08/25 at 0930, Keep refrigerated. 1347 (Not Given - Provider: Ana Black, ORE TESTER - Reason: Other)2008 (Given - Provider: Devante Ellis, LAPEL PADDER) 957 (Given - Provider: Ana Black, ORE TESTER) aspirin chewable tablet 81 mg(Linked Group 2) 81 mg, Oral, Daily, First dose on 05/08/25 at 0900, If patient fails dysphagia, ID option MUST be given. Do not exceed 4 grams of aspirin in a 24 hr period. If given for pain, use the following pain scale: Mild Pain = Pain Score of 1-3, CPOT 1-2 Moderate Pain = Pain Score of 4-6, CPOT 3-4 Severe Pain = Pain Score of 7-10, CPOT 5-8 09 (Given - Provider: Jolie Rocha RN Animal Care Worker) 0831 (Given - Provider: Jolie Rocha RN Animal Care Worker) carvedilol (COREG) tablet 3.125 mg 3.125 mg, Oral, 2 Times Daily With Meals, First dose on 05/08/25 at 0800, Hold for SBP less than 100, DBP less than 60, or heart rate less than 50. If a dose is held, please contact the provider. Give with food., On hold since 05/08/2025 at 0451 until manually unheld 0451 (Held by provider - Provider: Vikas Grossman MD - Reason: Abnormal Vitals)0800 (Dose Auto Held)1800 (Dose Auto Held) 0800 (Dose Auto Held)1226 (Unheld by provider - Provider: Automatic Discharge Provider) DULoxetine (CYMBALTA) DR capsule 60 mg 60 mg, Oral, 2 Times Daily, First dose on 05/08/25 at 0900, Do not crush or chew the capsules or tablets. The drug may not work as designed if the capsule or tablet is crushed or chewed. Swallow whole. Caution: Look alike/sound alike drug alert. Capsule may be opened and sprinkled on applesauce or apple juice. Do not crush or chew capsule. 09 (Given - Provider: Jolie Rocha RN Animal Care Worker)1810 (Given - Provider: Lashawn Goyal RN)2256 (Given - Provider: Cristiane Arguelles RN) 0832 (Given - Provider: Jolie Rocha RN Animal Care Worker) furosemide (LASIX) tablet 20 mg 20 mg, Oral, Daily, First dose on 05/08/25 at 0900, On hold since 05/08/2025 at 0451 until manually unheld 0451 (Held by provider - Provider: Vikas Grossman MD - Reason: Abnormal Vitals)0900 (Dose Auto Held) 0900 (Dose Auto Held)1226 (Unheld by provider - Provider: Automatic Discharge Provider) gabapentin (NEURONTIN) capsule 600 mg 600 mg, Oral, Every 8 Hours Scheduled, First dose on 05/08/25 at 0600, (WENCESLAO), On hold since 05/08/2025 at 0451 until manually unheld 0451 (Held by provider - Provider: Vikas Grossman MD - Reason: Abnormal Vitals)0600 (Dose Auto Held)1400 (Dose Auto Held)2200 (Dose Auto Held) 0600 (Dose Auto Held)1226 (Unheld by provider - Provider: Automatic Discharge Provider) Gadopiclenol (VUEWAY) injection 7.5 mL (COMPLETED) 7.5 mL, Intravenous, Once in Imaging, On 05/08/25 at 1245, For 1 dose, Administer undiluted as intravenous bolus at 2 ml/sec. Flush with NS after injection. 1147 (Given - Provider: Vinny Keating) heparin (porcine) 5000 UNIT/ML injection 5,000 Units 5,000 Units, Subcutaneous, Every 8 Hours Scheduled, First dose on 05/08/25 at 0600, Indications: VTE Prophylaxis 0542 (Given - Provider: Ghazala Alvarado RN)1445 (Given - Provider: Jolie Rocha RN Animal Care Worker)2258 (Given - Provider: Cristiane Arguelles RN) 0637 (Not Given - Provider: Cristiane Arguelles RN - Reason: Order parameters not met) revefenacin (YUPELRI) nebulizer solution 175 mcg(Linked Group 1) 175 mcg, Nebulization, Daily - RT, First dose on 05/08/25 at 0930 0744 (Given - Provider: Ana Black, ROBERT)0930 (Canceled Entry - Provider: Ana Black CRT) 1002 (Given - Provider: Ana Black CRT) sacubitril-valsartan (ENTRESTO) 24-26 MG tablet 1 tablet 1 tablet, Oral, 2 Times Daily, First dose on 05/08/25 at 0900, Hold for SBP < 90 mmHg, Is this new therapy for the patient? No, On hold since 05/08/2025 at 0451 until manually unheld 0451 (Held by provider - Provider: Vikas Grossman MD - Reason: Abnormal Vitals)0900 (Dose Auto Held)2100 (Dose Auto Held) 0900 (Dose Auto Held)1226 (Unheld by provider - Provider: Automatic Discharge Provider) sodium chloride 0.9 % flush 10 mL 10 mL, Intravenous, Every 12 Hours Scheduled, First dose on 05/08/25 at 0900 0903 (Given - Provider: Jolie Rocha RN Animal Care Worker)2258 (Given - Provider: Cristiane Arguelles RN) 0833 (Given - Provider: Jolie Rocha RN Animal Care Worker) sodium chloride 0.9 % flush 10 mL 10 mL, Intravenous, Every 12 Hours Scheduled, First dose on 05/08/25 at 0900 0902 (Given - Provider: Jolie Rocha RN Animal Care Worker)2258 (Given - Provider: Cristiane Arguelles RN) 0833 (Given - Provider: Jloie Rocha RN Animal Care Worker) PRN Medication Order 05/07/2025 05/08/2025 05/09/2025 acetaminophen (TYLENOL) 160 MG/5ML oral solution 650 mg(Linked Group 3) 650 mg, Oral, Every 4 Hours PRN, Mild Pain, Starting on 05/08/25 at 0451, If given for fever, use fever parameter: fever greater than 100.4 F Based on patient request - if ordered for moderate or severe pain, provider allows for administration of a medication prescribed for a lower pain scale. Do not exceed 4 grams of acetaminophen in a 24 hr period. Max dose of 2gm for AST/ALT greater than 120 units/L. If given for pain, use the following pain scale: Mild Pain = Pain Score of 1-3, CPOT 1-2 Moderate Pain = Pain Score of 4-6, CPOT 3-4 Severe Pain = Pain Score of 7-10, CPOT 5-8 2257 (Not Given: See Alt - Provider: Cristiane Arguelles RN) 1007 (Not Given: See Alt - Provider: Lashawn Goyal RN) acetaminophen (TYLENOL) suppository 650 mg(Linked Group 3) 650 mg, Rectal, Every 4 Hours PRN, Mild Pain, Starting on 05/08/25 at 0451, If given for fever, use fever parameter: fever greater than 100.4 F Based on patient request - if ordered for moderate or severe pain, provider allows for administration of a medication prescribed for a lower pain scale. Do not exceed 4 grams of acetaminophen in a 24 hr period. Max dose of 2gm for AST/ALT greater than 120 units/L. If given for pain, use the following pain scale: Mild Pain = Pain Score of 1-3, CPOT 1-2 Moderate Pain = Pain Score of 4-6, CPOT 3-4 Severe Pain = Pain Score of 7-10, CPOT 5-8 2257 (Not Given: See Alt - Provider: Cristiane Arguelles RN) 1007 (Not Given: See Alt - Provider: Lashawn Goyal RN) acetaminophen (TYLENOL) tablet 650 mg(Linked Group 3) 650 mg, Oral, Every 4 Hours PRN, Mild Pain, Starting on 05/08/25 at 0451, If given for fever, use fever parameter: fever greater than 100.4 F Based on patient request - if ordered for moderate or severe pain, provider allows for administration of a medication prescribed for a lower pain scale. Do not exceed 4 grams of acetaminophen in a 24 hr period. Max dose of 2gm for AST/ALT greater than 120 units/L. If given for pain, use the following pain scale: Mild Pain = Pain Score of 1-3, CPOT 1-2 Moderate Pain = Pain Score of 4-6, CPOT 3-4 Severe Pain = Pain Score of 7-10, CPOT 5-8 2257 (Given - Provider: Cristiane Arguelles RN) 1007 (Given - Provider: Lashawn Goyal RN) bisacodyl (DULCOLAX) EC tablet 5 mg(Linked Group 4) 5 mg, Oral, Daily PRN, Constipation, Use if polyethylene glycol is ineffective, Starting on 05/08/25 at 0451, Use if no bowel movement after 12 hours. Swallow whole. Do not crush, split, or chew tablet. bisacodyl (DULCOLAX) suppository 10 mg(Linked Group 4) 10 mg, Rectal, Daily PRN, Constipation, Use if bisacodyl oral is ineffective, Starting on 05/08/25 at 0451, Use if no bowel movement after 12 hours. Hold for diarrhea Calcium Replacement - Follow Nurse / BPA Driven Protocol Open Order & [facility] Electrolyte Replacement Protocol Algorithm to View Details ipratropium-albuterol (DUO-NEB) nebulizer solution 3 mL 3 mL, Nebulization, Every 4 Hours PRN, Shortness of Air, Wheezing, Starting on 05/08/25 at 0450, Include Respiratory Treatment Education 0610 (Given - Provider: Ana Marie, LAPEL PADDER) Magnesium Cardiology Dose Replacement - Follow Nurse / BPA Driven Protocol Open Order & [facility] Electrolyte Replacement Protocol Algorithm to View Details oxyCODONE-acetaminophen (PERCOCET) 7.5-325 MG per tablet 1 tablet 1 tablet, Oral, Every 6 Hours PRN, Moderate Pain, Starting on 05/08/25 at 0451, Based on patient request - if ordered for moderate or severe pain, provider allows for administration of a medication prescribed for a lower pain scale. [WENCESLAO] Do not exceed 4 grams of acetaminophen in a 24 hr period. Max dose of 2gm for AST/ALT greater than 120 units/L If given for pain, use the following pain scale: Mild Pain = Pain Score of 1-3, CPOT 1-2 Moderate Pain = Pain Score of 4-6, CPOT 3-4 Severe Pain = Pain Score of 7-10, CPOT 5-8 0540 (Given - Provider: Ghazala Alvarado RN)1106 (Given - Provider: Jolie Rocha RN Animal Care Worker)1811 (Given - Provider: Lashawn Goyal RN) 0837 (Given - Provider: Jolie Rocha RN Animal Care Worker) Phosphorus Replacement - Follow Nurse / BPA Driven Protocol Open Order & [facility] Electrolyte Replacement Protocol Algorithm to View Details polyethylene glycol (MIRALAX) packet 17 g(Linked Group 4) 17 g, Oral, Daily PRN, Constipation, Use if senna-docusate is ineffective, Starting on 05/08/25 at 0451, Use if no bowel movement after 12 hours. Mix in 6-8 ounces of water. Use 4-8 ounces of water, tea, or juice for each 17 gram dose. Potassium Replacement - Follow Nurse / BPA Driven Protocol Open Order & [facility] Electrolyte Replacement Protocol Algorithm to View Details sennosides-docusate (PERICOLACE) 8.6-50 MG per tablet 2 tablet(Linked Group 4) 2 tablet, Oral, 2 Times Daily PRN, Constipation, Starting on 05/08/25 at 0451, Start bowel management regimen if patient has not had a bowel movement after 12 hours. sodium chloride 0.9 % flush 10 mL 10 mL, Intravenous, As Needed, Line Care, Starting on 05/08/25 at 0232 sodium chloride 0.9 % flush 10 mL 10 mL, Intravenous, As Needed, Line Care, Starting on 05/08/25 at 0451 sodium chloride 0.9 % infusion 40 mL 40 mL, Intravenous, at 100 mL/hr, As Needed, Line Care, Starting on 05/08/25 at 0232, Following administration of an IV intermittent medication, flush line with 40mL NS at 100mL/hr. sodium chloride 0.9 % infusion 40 mL 40 mL, Intravenous, at 100 mL/hr, As Needed, Line Care, Starting on 05/08/25 at 0451, Following administration of an IV intermittent medication, flush line with 40mL NS at 100mL/hr. Linked Groups Order Group 1: arformoterol (BROVANA) nebulizer solution 15 mcgJump to med 15 mcg, Nebulization, 2 Times Daily - RT, First dose on 05/08/25 at 0930, Keep refrigerated. And revefenacin (YUPELRI) nebulizer solution 175 mcgJump to med 175 mcg, Nebulization, Daily - RT, First dose on 05/08/25 at 0930 Group 2: aspirin chewable tablet 81 mgJump to med 81 mg, Oral, Daily, First dose on 05/08/25 at 0900, If patient fails dysphagia, ID option MUST be given. Do not exceed 4 grams of aspirin in a 24 hr period. If given for pain, use the following pain scale: Mild Pain = Pain Score of 1-3, CPOT 1-2 Moderate Pain = Pain Score of 4-6, CPOT 3-4 Severe Pain = Pain Score of 7-10, CPOT 5-8 Or aspirin suppository 300 mg (CANCELED) 300 mg, Rectal, Daily, First dose on 05/08/25 at 0900, If patient fails dysphagia, ID option MUST be given. Do not exceed 4 grams of aspirin in a 24 hr period. If given for pain, use the following pain scale: Mild Pain = Pain Score of 1-3, CPOT 1-2 Moderate Pain = Pain Score of 4-6, CPOT 3-4 Severe Pain = Pain Score of 7-10, CPOT 5-8 Group 3: acetaminophen (TYLENOL) tablet 650 mgJump to med 650 mg, Oral, Every 4 Hours PRN, Mild Pain, Starting on 05/08/25 at 0451, If given for fever, use fever parameter: fever greater than 100.4 F Based on patient request - if ordered for moderate or severe pain, provider allows for administration of a medication prescribed for a lower pain scale. Do not exceed 4 grams of acetaminophen in a 24 hr period. Max dose of 2gm for AST/ALT greater than 120 units/L. If given for pain, use the following pain scale: Mild Pain = Pain Score of 1-3, CPOT 1-2 Moderate Pain = Pain Score of 4-6, CPOT 3-4 Severe Pain = Pain Score of 7-10, CPOT 5-8 Or acetaminophen (TYLENOL) 160 MG/5ML oral solution 650 mgJump to med 650 mg, Oral, Every 4 Hours PRN, Mild Pain, Starting on 05/08/25 at 0451, If given for fever, use fever parameter: fever greater than 100.4 F Based on patient request - if ordered for moderate or severe pain, provider allows for administration of a medication prescribed for a lower pain scale. Do not exceed 4 grams of acetaminophen in a 24 hr period. Max dose of 2gm for AST/ALT greater than 120 units/L. If given for pain, use the following pain scale: Mild Pain = Pain Score of 1-3, CPOT 1-2 Moderate Pain = Pain Score of 4-6, CPOT 3-4 Severe Pain = Pain Score of 7-10, CPOT 5-8 Or acetaminophen (TYLENOL) suppository 650 mgJump to med 650 mg, Rectal, Every 4 Hours PRN, Mild Pain, Starting on 05/08/25 at 0451, If given for fever, use fever parameter: fever greater than 100.4 F Based on patient request - if ordered for moderate or severe pain, provider allows for administration of a medication prescribed for a lower pain scale. Do not exceed 4 grams of acetaminophen in a 24 hr period. Max dose of 2gm for AST/ALT greater than 120 units/L. If given for pain, use the following pain scale: Mild Pain = Pain Score of 1-3, CPOT 1-2 Moderate Pain = Pain Score of 4-6, CPOT 3-4 Severe Pain = Pain Score of 7-10, CPOT 5-8 Group 4: sennosides-docusate (PERICOLACE) 8.6-50 MG per tablet 2 tabletJump to med 2 tablet, Oral, 2 Times Daily PRN, Constipation, Starting on 05/08/25 at 0451, Start bowel management regimen if patient has not had a bowel movement after 12 hours. And polyethylene glycol (MIRALAX) packet 17 gJump to med 17 g, Oral, Daily PRN, Constipation, Use if senna-docusate is ineffective, Starting on 05/08/25 at 0451, Use if no bowel movement after 12 hours. Mix in 6-8 ounces of water. Use 4-8 ounces of water, tea, or juice for each 17 gram dose. And bisacodyl (DULCOLAX) EC tablet 5 mgJump to med 5 mg, Oral, Daily PRN, Constipation, Use if polyethylene glycol is ineffective, Starting on 05/08/25 at 0451, Use if no bowel movement after 12 hours. Swallow whole. Do not crush, split, or chew tablet. And bisacodyl (DULCOLAX) suppository 10 mgJump to med 10 mg, Rectal, Daily PRN, Constipation, Use if bisacodyl oral is ineffective, Starting on 05/08/25 at 0451, Use if no bowel movement after 12 hours. 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
[2025-06-03 16:12] VITALS: BP 90/54; PULSE 60; RESP 18; TEMP 36.8; O2SAT 97; BMI 16.9
--- NOTE | 2025-06-03 16:17 | ED_ITS ---
<Statement entered by Celsa Dangelo DO - 06/03/25 17:52> I was consulted by the BRONSON, and we discussed the complexity of problems being addressed. I approve the treatment and management plan for this patient's care in the emergency department, thus performing a substantial portion of the medical decision making. Celsa Dangelo DO Discharge Plan Disposition Patient Disposition: Home, Self-Care Condition: Good Prescriptions Prescriptions: No Action atorvastatin 20 mg tablet 20 mg PO DAILY oxycodone-acetaminophen 7.5-325 mg tablet 1 tab PO TID tizanidine 6 mg capsule 6 mg PO BID Qty: 60 4RF duloxetine 60 mg capsule,delayed release(DR/EC) 60 mg PO BID 90 Days Qty: 180 3RF furosemide [Lasix] 20 mg tablet 20 mg PO DAILY Qty: 90 1RF carvedilol 3.125 mg tablet 3.125 mg PO BID gabapentin 600 mg tablet 600 mg PO TID Qty: 20 0RF sacubitril-valsartan 24-26 mg tablet 1 tab PO BID ipratropium-albuterol 0.5 mg-3 mg(2.5 mg base)/3 mL solution for nebulization 3 ml inhalation QIDP PRN (Reason: Shortness Of Breath) Stiolto Respimat 2.5-2.5 mcg/actuation mist 2 puff inhalation DAILY levofloxacin 750 mg Tablet 750 mg PO 1100 4 Days Qty: 4 0RF buspirone 10 mg tablet 5 mg PO BID Referrals Follow up/Referrals: Aldo Simmons APRN [Nurse Practitioner, Family Practice] - See instructions Clinical Impressions Clinical Impression: Chronic pain Instructions Patient Instructions: DI for Chronic Pain in Adults Print Language Print Language: Amharic Discharge ED Provider: Celsa Dangelo General Adult HPI General Chief complaint: PAIN Stated complaint: Neck and back pain like spasms Time Seen by Provider: 06/03/25 16:17 History of Present Illness HPI narrative: 64-year-old male presents emergency department complaints of ongoing neck and back pain for the past several days. Patient was seen at his primary care provider's office yesterday for follow-up for his recent admission for pneumonia. He had talked to them about his pain and was started on tizanidine. Patient reports he takes the gabapentin and Percocet regularly for pain control. He reports that he has been out of his Percocet for the past 2 to 3 days and is not scheduled to have a refill until next week patient reports he was on oxycodone 15 mg 4 times daily through his primary care provider however when he was sent to pain management they changed it to Percocet 5 mg 3 times a day. Patient reports he takes extra pain medication than what is prescribed and always runs out by the end of the month. Related Data Home Medications ?Medication ?Instructions ?Recorded ?Confirmed oxycodone-acetaminophen 7.5 mg-325 1 tab PO TID 05/26/25 mg tablet carvedilol 3.125 mg tablet 3.125 mg PO BID 11/03/24 atorvastatin 20 mg tablet 20 mg PO DAILY 05/21/2505/17 ipratropium 0.5 mg-albuterol 3 mg 3 ml inhalation QIDP PRN Shortness 05/26/25 05/26/25 (2.5 mg base)/3 mL nebulization Of Breath soln sacubitril 24 mg-valsartan 26 mg 1 tab PO BID 05/26/25 05/26/25 tablet tiotropium 2.5 mcg-olodaterol 2.5 2 puff inhalation DA MARCELO 05/26/25 05/26/25 mcg/actuation mist for inhalation (Stiolto Respimat) buspirone 10 mg tablet 5 mg PO BID 06/02/25 5 Previous Rx's ?Medication ?Instructions ?Recorded duloxetine 60 mg capsule,delayed 60 mg PO BID 90 days #180 caps 10/23/24 release furosemide 20 mg tablet (Lasix) 20 mg PO DAILY #90 tab s 02/15/25 Held on 05/28/25. Instructions: Resume on 06/01/25. hold until complete antibiotics gabapentin 600 mg tablet 600 mg PO TID #20 tabs 03/03 levofloxacin 750 mg tablet 750 mg PO 1100 4 days #4 ta bs 05/28/25 tizanidine 6 mg capsule 6 mg PO BID #60 caps 5 Allergies Allergy/AdvReac Type Severity Reaction Status Date / Time methocarbamol (From ROBAXIN) Allergy Unknown Shakiness Verified 06/02/25 13:52 pregabalin (From LYRICA) Allergy Unknown Shakiness Verified 06/02/25 13:52 methadone Allergy Difficulty Verified 06/02/25 13:52 Breathing ibuprofen AdvReac Cramping Verified 06/02/25 13:52 of the Muscles PFSH PFS Disclaimer: The information contained in this section may have been updated after the patient was seen, as this information can be updated by other users. Medical History Acute and chronic respiratory failure with hypoxia Viral pneumonia Rhinovirus infection Prediabetes (HFpEF) heart failure with preserved ejection fraction Esophageal thickening Solid nodule of lung greater than 8 mm in diameter COPD mixed type Nodule of left lung SIRS (systemic inflammatory response syndrome) Postherpetic trigeminal neuralgia Encounter for screening for malignant neoplasm of lung in current smoker with 30 pack year history or greater Abnormal screening computed tomography (CT) of chest Nonischemic cardiomyopathy Diastolic dysfunction Elevated left ventricular end-diastolic pressure (LVEDP) Non-STEMI (non-ST elevated myocardial infarction) Emphysema/COPD Pneumonia due to gram-negative bacteria Low body mass index (BMI) COPD (chronic obstructive pulmonary disease) with acute bronchitis Upper respiratory infection HLD (hyperlipidemia) Tobacco dependence syndrome Chest pain Cardiomyopathy Preoperative clearance Poisoning by opiate or related narcotic Atypical pneumonia Postherpetic neuralgia Left against medical advice HTN (hypertension) Elevated C-reactive protein CAP (community acquired pneumonia) COPD (chronic obstructive pulmonary disease) Pain, eye, right Herpes zoster ophthalmicus, right eye Eye pain Shingles Neuropathy Surgical History H/O cervical spine surgery H/O cardiac catheterization Family History Mother Lung cancer Family history of acute congestive heart failure Father Lung cancer Family history of acute congestive heart failure Social History Smoking Status: Former smoker tobacco type: cigarettes packs per day: 1 smoking status stop date: december 2021 second hand exposure: Yes alcohol intake: former substance use type: denies use current occupational status: disabled Travel in the last 8 weeks?: None household members: children housing: house marital status: current occupational exposures/hazards: No pets and animals: No caffeine: Yes Have you lived/traveled outside US in past 30 days?: No Contact w/someone who lives/traveled outside US past 30 days?: No Exposure to someone with infectious disease in past 14 days?: No Do you have a fever (greater than 100.4 F or 38 C)?: No Have you tested positive for COVID-19?: No Exposed to someone with COVID-19 in past 14 days?: No Do you have a sore throat?: No Do you have a cough?: No Do you have any weakness?: No Do you have any diarrhea?: No Are you experiencing any unusual bleeding?: No Do you have any muscle aches/pain?: No Do you have any abdominal pain?: No Are you experiencing loss of taste or smell?: No Other Medical History Have you received the Flu Vaccine for this season: No Have you received the Pneumonia Vaccine: No ROS Obtained: Yes other ENT Ears, Nose, Mouth, and Throat: Reports neck pain Respiratory Respiratory: Reports cough and Reports wheezing Musculoskeletal Musculoskeletal: Reports back pain and Reports neck pain Allergic/Immunologic Allergic/Immunologic: Reports wheezing Physical Exam Narrative Physical exam: General: Awake, aware, in no acute distress HEENT: Normocephalic, no evidence of trauma CV: RRR, no murmurs, rubs, or gallops Pulm: Patient with mild wheezing bilaterally. Patient with decreased breath sounds bilaterally. ABD: Nontender, no swelling, guarding, or rebound tenderness Psych, appropriate mood and affect Musculoskeletal: Patient reports tenderness on palpation of posterior and bilateral sides of his neck as well as throughout his entire back. Sensations intact with 2+ pulses in all extremity. Patient moving all extremities without difficulty. General General appearance: alert Respiratory Respiratory exam: Present wheezes Cardiovascular Cardiovascular exam: Present regular rate Neurological Exam Neurological exam: Present alert Medical Decision Making Medical Records Screening: Per USPSTF and CDC recommendations, given the prevalence of disease in our region, it is our hospital?s policy to screen for HIV and viral Hepatitis for all patients aged 18 and over and those with ongoing risk factors. Marck Inquiry Pt receiving controlled substance: No Vital Signs: 06/03/25 16:12 06/03/25 16:23 06/03/25 16:30 Temperature 98.2 F Temperature Source Oral Pulse Rate 70 65 Pulse Rate [Right] 60 Respiratory Rate 18 Blood Pressure 84/51 L 85/54 L Blood Pressure [Right Arm] 90/54 L Blood Pressure Mean [Right Arm] 66 Blood Pressure Source [Right Arm] Automatic Cuff Blood Pressure Position [Right Arm] Sitting 02 Sat by Pulse Oximetry 97 97 96 Oxygen Delivery Method Room Air Nasal Cannula Nasal Cannula Oxygen Flow Rate (LPM) 2 2 06/03/25 16:37 Temperature Temperature Source Pulse Rate 62 Pulse Rate [Right] Respiratory Rate Blood Pressure 84/53 L Blood Pressure [Right Arm] Blood Pressure Mean [Right Arm] Blood Pressure Source [Right Arm] Blood Pressure Position [Right Arm] 02 Sat by Pulse Oximetry 97 Oxygen Delivery Method Nasal Cannula Oxygen Flow Rate (LPM) 2 Orders (Tests/Meds): ED MEDICATIONS Discontinued Medications Generic Name Dose Route Start Last Admin Trade Name Freq PRN Reason Stop Dose Admin Albuterol/Ipratropium 3 ml 06/03/25 16:31 06/03/25 16:35 Ipratropium/Albuterol 3 Ml Neb IH 06/03/25 16:32 3 ml ONCE ONE Administration Medical Decision Narrative: Initial impression of presenting illness: 64-year-old male presents the emergency department complaints of neck and back pain. Patient reports he was seen his primary care provider yesterday with similar complaints and started on tizanidine. He reports that he also takes Percocet 5 mg 3 times daily that is prescribed through pain management as well as gabapentin. Patient states he ran out of his Percocets approximately 2 to 3 days ago. Patient reports when he was prescribed narcotics through her primary care provider he was given oxycodone 15 mg 4 times daily. He reports when he was referred to pain management they changed his prescription to Percocet 5 mg 3 times daily. He reports that he runs out every month before his next refill. He denies any new injury to the area. Differential diagnosis includes but is not limited to: Chronic pain, opioid abuse, musculoskeletal strain Patient arrives hemodynamically stable, afebrile, without respiratory distress with vital signs interpreted by myself. Initial physical exam reveals decreased breath sounds with minimal wheezing bilaterally. Patient reports tenderness on palpation of all of his neck as well as all of his back. No pinpoint tenderness in any 1 location. Sensations intact with 2+ pulses. Patient was able to ambulate with steady gait. Patient with 5 out of 5 strength in all extremities as well. Initial diagnostic plan: DuoNeb for wheezing, Percocet for pain control Disposition: Advised patient that I was only able to give him a one-time dose of Percocet as he does have an ongoing prescription and is followed by pain management. Encouraged him to continue with his previously prescribed medications including the tizanidine and gabapentin. Recommended he reach out to his pain management provider for further evaluation of his ongoing pain. Advised him he can return to the emergency department any new or worsening symptoms. Patient is agreeable to plan of care. Critical Care Critical Care Time Critical Care Time: No
[2025-06-03 16:23] VITALS: BP 84/51; PULSE 70; O2SAT 97
[2025-06-03 16:30] VITALS: BP 85/54; PULSE 65; O2SAT 96
--- OUTSIDE RECORDS SUMMARY | 2025-06-03 16:31 | XMS_ITS | Encounter Summary ---
[facility] Address [address] [place] [address] Care Team Providers Care Lighthouse Keeper Name Role Phone Provider, No Known Primary Care Provider Unavail able Encounter Details Date Type Department Care Team (Late st Contact Info) Description 05/18/2025 Readmission Management [facility] [address] [place] [phone] Tiana Monk RN Social History Tobacco Use Types Packs/Day Years Used Date Smoking Tobacco: Former Cigarettes Q uit: 01/2025 Smokeless Tobacco: Never Alcohol Use Standard Drinks/Week Comments Never 0 [...] on file documented as of this encounter Miscellaneous Notes * Outreach Note - Tiana Monk RN - 05/18/2025 3:27 PM EST CHF Week 1 Survey Flowsheet Row Responses [facility] patient discharged from? [place] Does the patient have one of the following disease processes/diagnoses(primary or secondary)? CHF CHF Week 1 attempt successful? No Unsuccessful attempts Attempt 1 Tiana Cook - Registered Nurse documented in this encounter Plan of Treatment Not on file documented as of this encounter Visit Diagnoses Not on filedocumented in this encounter Care Teams Lighthouse Keeper Relationship Specialty Start Date End Date Provider, [place] [address] PCP - General 05/08/25 documented as of this encounter
--- OUTSIDE RECORDS SUMMARY | 2025-06-03 16:31 | XMS_ITS | CCD ---
Author Organization Unknown Care Team Providers Care Cannoneer Name Role Phone Unavailable Primary Care Provider Unavailabl e Unavailable Chronic Care Management Unavaila ble Summary Purpose DataExchange Insurance Providers Payer name Policy type / Coverage type Covered republican ID Effective Begin Date Effective End Date [facility] [id number] Unknown Unknown Family History Family History data not found Medication Administered No Medication Administered data Reason For Visit No Reason For Visit data Medical Equipment No Medical Equipment data Advance Directives No Advance Directive data
--- OUTSIDE RECORDS SUMMARY | 2025-06-03 16:31 | XMS_ITS | Data Portability ---
Author Organization [facility] Address [address] [place] [address] Care Team Providers Care Mail Deliverer Name Role Phone DEWEY BAEZA Primary Care [...] By Organization Details Last Modified Time 08/31/2024 [id number] 1. Laryngoscopy flex performed in office today. [...] barium swallow, can likely do locally at [facility]. Discussed saline irrigations for the nose. duke Not available 08/31/2024 17:23:11 Reason for Referral None Reported. Problems Name Problem SNOMED Code Status Onset Date Resolution Date Notes Provider Name and Address Organization Details Recorded Time Low back pain 266422018 Active 2015 Provider: Daniel Bailey;Patrick owenss: Active Not Available [facility] 6 05:53:24 Lumbar spondylos is 802268868 Active 2015 From Automated Load;[facility] [place]: Daniel Bailey;Patrick tus: Active Not Available [facility] 6 05:53:24 Problem Notes None recorded. Procedures Surgical History Date Name Laterality Status Provider Name and Address Organization Details Recorded Time 09/01/19 25 Laryngoscopy Flex completed SERA PHAN MD [address] [place] [address], [id number] 08/31/2024 17:22:06 surgical procedure on cervical spine completed Brittaney Godwin [facility] 08/31/2024 15:13:56 Imaging Results None recorded. Procedure Notes None recorded. Medical Equipment None Reported. Allergies Allergen ID Allergen Name Allergen Category Reaction Reaction Severity Criticality Documentation Date Start Date Code Code System Note Provider Name and Address Organization Details Recorded Time 165351 Lyrica medicatio n Not available Not available Not available 08/31/2024 40087 1 RxNorm Ezio Bojang [facility] 5 15:05:47 882413 ibuprofen medicatio n Not available Not available Not available 08/31/2024 5640 RxNorm Ezio Bojang [facility] 5 15:05:57 329972 reboxetin e Not available Not available Not available Not available 08/31/2024 46369 RxNorm Ezio Bojang [facility] 5 15:06:08 Medications Name Sig Start Date [...] Address Organization Details Last Updated DateTime 08/31/2024 44272.86 g 15.8 kg/m2 187.96 cm 98 [degF] 114/62 mm[Hg] Ezio Mcduffie [facility] 15:06:39 Social History None recorded. Functional Status None recorded. Mental Status None recorded. Family History Relationship Description Onset Age of this Age Resolved Age Notes LastModified by Organization Details LastModified Time Father Complication of anesthesia [email or web address] Not available 08/31 15:11:43 Father Malignant neoplastic disease LUNG [email or web address] Not available 2024 15:12:21 Father Heart disease Not available 2024 15:12:40 Father Hypertensive disorder [email or web address] Not available 2024 15:13:03 Mother Complication of anesthesia [email or web address] Not available 08/31 15:11:43 Mother Malignant neoplastic disease LUNG [email or web address] Not available 2024 15:12:21 Mother Heart disease [email or web address] Not available 2024 15:12:41 Mother Hypertensive disorder Not available 2024 15:13:03 Brother Malignant neoplastic disease THROAT [email or web address] Not available 2024 15:12:21 Brother Heart disease Not available 2024 15:12:41 Brother Hypertensive disorder [email or web address] Not available 2024 15:13:03 Medical History Condition Response Depression Y Anxiety Disorder Y Arthritis Y Heart Problems Y Migraines Y Past Encounters Encounter ID Performer Location Encounter Start Date Encounter Closed Date Diagnosis/Indication Diagnosis SNOMED-CT Code Diagnosis ICD10 Code Diagnosis IMO Codes Diagnosis Note [id number] MD [facility] [address] [place] [address] 08/31/2024 14:30:17 08/31/2024 16:10:53 Head and neck swelling 440318050 R22.0 possible cyst vs lipoma on scalp seen on [address] [facility] Chronic hoarseness 73525 68836 105 R49.0 Dysphagia 43010446 R13.1 0 Health Concerns Section Related Observation LastModified by Organization Detai ls LastModified Time None Recorded Concern Status LastModified by Organization Details LastModified Time None Recorded Advance Directives Directive None Recorded Payers Insurance Date Sequence Insurance Name Policy Number Policy Saab Covered Member ID Saab Member ID Guarantor Name 09/07/2024 1 [employer] (MEDICARE REPLACEMENT/AD VANTAGE - HMO) Radu Sharif [place] [id number] Radu Chante [place] 08/31/2024 1 [place]MEDICARE REPLACEMENT HMO) [id number] Radu Turk [id number] Radu Turk Notes Date Note Type [...] smoking for 48 years SERA PHAN MD [address] [place] [address], [id number], [facility] 08/31/2024 17:23:33
--- OUTSIDE RECORDS SUMMARY | 2025-06-03 16:31 | XMS_ITS | Clinical Summary ---
Author Organization Healthcare Address [address] [id number] Care Team Providers Care Greaser Operator Name Role Phone Unavailable Primary Care [...] 2008 UKY-Zoster Vaccines (1 of 2) 2008 [id number]-[id number]-87 Vaccine (1 - 20 25-26 season) 2025 UKY-Influenza Vaccine (#1) 2025 05/04/2019 UKY-RSV Vaccine: 60+ Years o r (1 - 1-dose 75+ series) 2033 HPV Vaccines (No Doses Required) Completed UKY-HIB Vaccines Aged Out No longer e [...]
--- OUTSIDE RECORDS SUMMARY | 2025-06-03 16:31 | XMS_ITS | Encounter Summary ---
[facility] Address [address] [place] [address] Care Team Providers Care Fisher Weir Name Role Phone Provider, No Known Primary Care Provider Unavail able Encounter Details Date Type Department Care Team (Late st Contact Info) Description 05/26/2025 Readmission Management [facility] [address] [place] [phone] Macey Bartlett RN Social History Tobacco Use Types Packs/Day [...] encounter Miscellaneous Notes * Outreach Note - Macey Barteltt RN - 05/26/2025 2:39 PM EST Images from the original note were not included. [facility] Week 1 Survey Flowsheet Row Responses [facility] patient discharged from? [place] Does the patient have one of the following disease processes/diagnoses(primary or secondary)? CHF CHF Week 1 attempt successful? No [No VR] Unsuccessful attempts Attempt 2 [Not in service area to leave ] Macey Joya - Registered Nurse documented in this encounter Plan of Treatment Not on file documented as of this encounter Visit Diagnoses Not on filedocumented in this encounter Care Teams Fisher Weir Relationship Specialty Start Date End Date Provider, [place] [address] PCP - General 05/08/25 documented as of this encounter
--- OUTSIDE RECORDS SUMMARY | 2025-06-03 16:31 | XMS_ITS | Referral Summary ---
Author Organization [facility] ([place], [place], [place], [place], [place]) Address [address] [place] [address] Care Team Providers Care Concrete Finisher Apprentice Name Role Phone SallieVikas Semaj JADE Primary Care Provider [phone] Allergies Active Allergy Reactions Criticality Noted Date [...] Date Ismael rded Speak language other than Ugandan at home Not on file 11/02/2023 Want [...] Plan of Treatment Not on file Insurance ACCESS PPO MAP Care Teams Concrete Finisher Apprentice Relationship Specialty Start Date End Date Vikas Rizo DO PCP - General Internal Medicine 04/16/24
--- OUTSIDE RECORDS SUMMARY | 2025-06-03 16:31 | XMS_ITS | Encounter Summary ---
Author Organization [facility] Address [address] [place] [address] Care Team Providers Care Pre Press Manager Name Role Phone Provider, No Known Primary Care Provider Unavail able Encounter Details Date Type Department Care Team (Latest Contact Info) Description 05/08/2025 Travel Social History Tobacco Use Types Packs/Day Years [...] on file documented as of this encounter Plan of Treatment Not on file documented as of this encounter Visit Diagnoses Not on filedocumented in this encounter Care Teams Pre Press Manager Relationship Specialty Start Date End Date Provider, [place] [address] PCP - General 05/08/25 documented as of this encounter
--- OUTSIDE RECORDS SUMMARY | 2025-06-03 16:31 | XMS_ITS | Encounter Summary ---
[facility] [address] [place] [address] Care Team Providers Care Shearing Shed Worker Name Role Phone Provider, No Known Primary Care Provider Unavail able Encounter Details Date Type Department Care Team (Late st Contact Info) Description 06/02/2025 Readmission Management [facility] [address] [place] [phone] Macey Bartlett RN Social History Tobacco [...] Miscellaneous Notes * Outreach Note - Macey Bartlett RN - 06/02/2025 11:33 AM EST CHF Week 1 Survey Flowsheet Row Responses [facility] patient discharged from? [place] Does the patient have one of the following disease processes/diagnoses(primary or secondary)? CHF CHF Week 1 attempt successful? No Unsuccessful attempts Attempt 3 Macey Joya - Registered Nurse documented in this encounter Plan of Treatment Not on file documented as of this encounter Visit Diagnoses Not on filedocumented in this encounter Care Teams Shearing Shed Worker Relationship Specialty Start Date End Date Provider, [place] [address] PCP - General 05/08/25 documented as of this encounter
--- OUTSIDE RECORDS SUMMARY | 2025-06-03 16:31 | XMS_ITS | Encounter Summary ---
[facility] Address [address] [place] [address] Care Team Providers Care Commis Chef Name Role Phone Provider, No Known Primary Care Provider Unavail able Encounter Details Date Type Department Care Team (Late st Contact Info) Description 05/10/2025 Readmission Management [facility] [address] [place] [phone] Ivett Armstrong Social History Tobacco Use Types Packs/Day Years [...] encounter Miscellaneous Notes * Outreach Note - Ivett Armstrong - 05/10/2025 7:51 AM EST Prep Survey Flowsheet Row Responses [facility] patient discharged from? [place] Is LACE score less than 10 ? Yes Eligibility Readm Mgmt Discharge diagnosis Vertigo Does the patient have one of the following disease processes/diagnoses(primary or secondary)? CHF Does the patient have Home health ordered? No Is there a DME ordered? No Prep survey completed? Yes Ivett M - Coordinator documented in this encounter Plan of Treatment Not on file documented as of this encounter Visit Diagnoses Not on filedocumented in this encounter Care Teams Commis Chef Relationship Specialty Start Date End Date Provider, No Known [facility] [place] [address] PCP - General 05/08/25 documented as of this encounter
--- OUTSIDE RECORDS SUMMARY | 2025-06-03 16:32 | XMS_ITS | Clinical Summary ---
Author Organization [employer] ([place], [place], [place], [place], [place]) Address [address] [place] [address] Care Team Providers Care Head Inspector Name Role Phone SallieVikas Primary Care Provider [phone] Allergies Active Allergy Reactions Criticality Noted Date [...] Date Ismael rded Speak language other than Peruvian at home Not on file 11/02/2023 Want [...] years (2 of 2 - PCV) 07/03/2020 Falls Risk Screening 06/17/2024 Medicare Initial AWV [id number] 06/18/2024 COVID-19 VACCINE (3 - season) 02/15/202504/2021, 01/12/2021 Influenza Vaccine (#1) 2025 Respiratory Syncytial Virus (RSV) Adult or (1 - 1-dose 75+ series) 2033 Shingles Vaccine (Zoster) Completed 01/17/2022, 04/2021 Insurance ACCESS PPO MAP Care Teams Head Inspector Relationship Specialty Start Date End Date Vikas Rizo DO PCP - General Internal Medicine 04/16/24
--- OUTSIDE RECORDS SUMMARY | 2025-06-03 16:32 | XMS_ITS | Clinical Summary ---
Author Organization [facility] Address [address] [place] [address] Care Team Providers Care Manufacturing Test Technician Name Role Phone Provider, No Known Primary Care Provider Unavail able Allergies No known active allergies Medications atorvastatin (LIPITOR) 20 MG tablet Take 1 tablet by mouth Daily. 5 Active buPROPion (WELLBUTRIN) 75 MG tablet Take 1 tablet by mouth Daily. 5 Active carvedilol (COREG) 3.125 MG tablet Take 1 tablet by mouth 2 (Two) Times a Day With Meals. Active DULoxetine (CYMBALTA) 60 MG capsule Take 1 capsule by mouth 2 (Two) Times a Day. 5 Active furosemide (LASIX) 20 MG tablet Take 1 tablet by mouth Daily. 5 Active gabapentin (NEURONTIN) 600 MG tablet Take 1 tablet by mouth 3 (Three) Times a Day. 5 Active ipratropium-alb uterol (DUO-NEB) 0.5-2.5 mg/3 ml nebulizer Take 3 mL by nebulization 4 (Four) Times a Day. 5 Active oxyCODONE-aceta minophen (PERCOCET) 7.5-325 MG per tablet Take 1 tablet by mouth Every 6 (Six) Hours As Needed for Moderate Pain. 5 Active Stiolto Respimat 2.5-2.5 MCG/ACT aerosol solution inhaler Inhale 2 puffs Daily. 5 Active Entresto 24-26 MG tablet Take 1 tablet by mouth 2 (Two) Times a Day. Patient states taking valsartin 5 Active meclizine (ANTIVERT) 25 MG tablet Take 1 tablet by mouth 3 (Three) Times a Day As Needed for Dizziness. 15 tablet 5 Active busPIRone (BUSPAR) 5 MG tablet Take 1 tablet by mouth 2 (Two) Times a Day. 60 tablet 5 06/08/20 25 Active Active Problems Problem Noted Date Diagnosed Date Vertigo 05/08/2025 Chronic obstructive pulmonary disease 05/08/2025 Neuropathy 05/08/2025 Anemia 05/08/2025 (HFpEF) heart failure with preserved ejection fr action 05/08/2025 Encounters Date Type Department Care Team Description 06/02/2025 Readmission Management [facility] [address] [place] [phone] Macey Bartlett, SAHRA 05/26/2025 Readmission Management [facility] [address] [place] [phone] Macey Bartlett, SAHRA 05/18/2025 Readmission Management [facility] [address] [place] [phone] Tiana Monk RN 05/10/2025 Readmission Management [facility] [address] [place] [phone] Ivett Armstrong 05/08/2025 2:30 AM EST - 05/09/2025 10:21 AM EST Hospital Encounter [address] [place] [phone] Ghazala Frost MD Frandina, John L, MD Reddy, Mayuri V, MD Discharge Disposition: Home or Self Care 05/08/2025 Travel from Last 3 Months Social History Tobacco Use Types Packs/Day Years [...] Mass Index 15.32 05/08/2025 2:31 AM EST Plan of Treatment Health Maintenance Due Date Last Done Comments ANNUAL WELLNESS VISIT 1958 HEPATITIS C SCREENING 1958 TDAP/TD VACCINES (1 - Tdap) 1977 COLOGUARD 2003 COLON CANCER SCREENING 5 YEA R SIGMOIDOSCOPY 2003 COLONOSCOPY 2003 [address] CANCER SCREENING 2003 CT COLONOGRAPHY 2003 FECAL OCCULT BLOOD TEST 2003 FIT Testing (1 year) 2003 Pneumococcal Vaccine 50+ (2 of 2 - PCV) 07/03/2020 0 07/03/2019 AAA SCREEN ONCE 2023 INFLUENZA VACCINE 01/15/2025 05/04/2019 COVID-19 Vaccine (3 - season) 02/15/202504/2021, 01/12/2021 ZOSTER VACCINE Completed 01/17/2022, 04/27/2021 Procedures Procedure Name Priority Date/Time Associated Diagnosis Comments ECHO COMPLETE W/ DOPPLER AND COLOR FLOW Routine 05/08/2025 2:20 PM EST MRI BRAIN W WO CONTRAST Routine 05/08/2025 12:00 PM EST POCT GLUCOSE FINGERSTICK Routine 05/08/2025 8:05 AM EST MAGNESIUM Urgent 05/08/2025 7:44 AM EST BASIC METABOLIC PANEL Urgent 05/08/2025 7:44 AM EST CBC (NO DIFF) Urgent 05/08/2025 7:44 AM EST LIPID PANEL Urgent 05/08/2025 7:44 AM EST HEMOGLOBIN A1C Urgent 05/08/2025 7:44 AM EST ECG 12-LEAD Routine 05/08/2025 5:44 AM EST POCT GLUCOSE FINGERSTICK Routine 05/08/2025 2:46 AM EST SCANNED - LABS 05/08/2025 SCANNED - IMAGING 05/08/2025 SCANNED - IMAGING 05/08/2025 SCANNED - IMAGING 05/08/2025 SCANNED - IMAGING 05/08/2025 SCANNED - IMAGING 05/08/2025 XR OUTSIDE CHEST Routine 05/07/2025 12:[address] OUTSIDE HEAD Routine 05/07/2025 12:[address] OUTSIDE SPINE Routine 05/07/2025 12:[address] OUTSIDE NECK Routine 05/07/2025 12:[address] OUTSIDE HEAD Routine 05/07/2025 12:00 AM EST from Last 3 Months Results * ECHO COMPLETE W/ DOPPLER AND COLOR FLOW (05/08/2025 2:20 PM EST) Pathologist [facility] EF(MOD-bp) 56.8 % LVIDd 4.0 cm [...] MD 05/08/2025 6:10 PM EST Workstation ID: [id number] Narrative 05/08/2025 6:10 PM EST MRI BRAIN [...] MD 05/08/2025 6:10 PM EST Workstation ID: [id number] Ramez Magallon PA-C IMG MRI ORDERABLES Final Result * POC Glucose Once (05/08/2025 8:05 AM EST) Only the most recent of2 resultswithin the time period is included. Pathologist [facility] Glucose 87 70 - 130 mg/dL 05/08/2025 8:08 AM EST [facility] Comment:Serial Number: [id number]: [id number] Blood 05/08/2025 8:0 5 AM EST 05/08/2025 8:08 AM EST Renee Lawler MD POINT OF CARE TEST ORDERABLES Final Result [facility]
[address] [place] [address], * (ABNORMAL) CBC (No Diff) (05/08/2025 7:44 AM EST) Pathologist [facility] WBC 5.68 3.40 - 10.80 10*3/mm3 05/08/2025 8:32 AM EST [facility] RBC 3.87(L) 4.14 - 5.80 10*6/mm3 05/08/2025 8:32 AM EST [facility] Hemoglobin 10.9(L) 13.0 - 17.7 g/dL 05/08/2025 8:32 AM EST [facility] Hematocrit 34.7(L) 37.5 - 51.0 % 05/08/2025 8:32 AM EST [facility] MCV 89.7 79.0 - 97.0 fL 05/08/2025 8:32 AM EST [facility] MCH 28.2 26.6 - 33.0 pg 05/08/2025 8:32 AM EST [facility] MCHC 31.4(L) 31.5 - 35.7 g/dL 05/08/2025 8:32 AM EST [facility] RDW 16.5(H) 12.3 - 15.4 % 05/08/2025 8:32 AM [facility] RDW-SD 54.1(H) 37.0 - 54.0 fl 05/08/2025 8:32 AM EST [facility] MPV 8.9 6.0 - 12.0 fL 05/08/2025 8:32 AM EST [facility] Platelets 364 140 - 450 10*3/mm3 05/08/2025 8:32 AM EST [facility] Blood Venipuncture / Unknown 05/08/2025 7:44 AM EST 05/08/2025 8:17 AM EST us Vikas Grossman MD LAB BLOOD ORDERABLES Final Re sult [facility]
[address] [place] [address], * Magnesium (05/08/2025 7:44 AM EST) Pathologist [facility] Magnesium 2.1 1.6 - 2.4 mg/dL 05/08/2025 8:41 AM EST [facility] Blood Venipuncture / Unknown 05/08/2025 7:44 AM EST 05/08/2025 8:18 AM EST Vikas Grossman MD LAB BLOOD ORDERABLES Final Re sult Performing Organization Address City/[facility]/ZIP Co de Phone Number [facility]
[address] [place] [address], * (ABNORMAL) Hemoglobin A1c (05/08/2025 7:44 AM EST) [facility] Hemoglobin A1C 6.07(H) 4.80 - 5.60 % 05/08/2025 8:52 AM EST [facility] Blood Venipuncture / Unknown 05/08/2025 7:44 AM EST 05/08/2025 8:17 AM EST Narrative [facility] - 05/08/2025 8:52 AM EST Hemoglobin A1C Ranges: Increased Risk for Diabetes 5.7% to 6.4% Diabetes >= 6.5% Diabetic Goal < 7.0% Ramez Magallon PA-C LAB BLOOD ORDERABLE S Final Result Performing Organization Address City/[facility] Co de Phone Number [facility]
[address] [place] [address], * (ABNORMAL) Lipid Panel (05/08/2025 7:44 AM EST) [facility] Total Cholesterol 121 0 - 200 mg/dL 05/08/2025 8:41 AM EST [facility] Triglycerides 100 0 - 150 mg/dL 05/08/2025 8:41 AM EST [facility] HDL Cholesterol 38(L) 40 - 60 mg/dL 05/08/2025 8:41 AM EST [facility] LDL Cholesterol 64 0 - 100 mg/dL 05/08/2025 8:41 AM EST [facility] VLDL Cholesterol 19 5 - 40 mg/dL 05/08/2025 8:41 AM EST [facility] LDL/HDL Ratio 1.66 05/08/2025 8:41 AM EST [facility] Blood Venipuncture / Unknown 05/08/2025 7:44 AM EST 05/08/2025 8:18 AM EST [facility] - 05/08/2025 8:41 AM EST Cholesterol [...] PA-C LAB BLOOD ORDERABLE S Final Result [facility]
[address] [place] [address], * (ABNORMAL) Basic Metabolic Panel (05/08/2025 7:44 AM EST) [facility] Glucose 84 65 - 99 mg/dL 05/08/2025 8:41 AM EST [facility] BUN 11.3 8.0 - 23.0 mg/dL 05/08/2025 8:41 AM EST [facility] Creatinine 0.71(L) 0.76 - 1.27 mg/dL 05/08/2025 8:41 AM EST [facility] Sodium 137 136 - 145 mmol/L 05/08/2025 8:41 AM EST [facility] Potassium 3.8 3.5 - 5.2 mmol/L 05/08/2025 8:41 AM EST [facility] Chloride 102 98 - 107 mmol/L 05/08/2025 8:41 AM EST [facility] CO2 28.0 22.0 - 29.0 mmol/L 05/08/2025 8:41 AM EST [facility] Calcium 8.5(L) 8.6 - 10.5 mg/dL 05/08/2025 8:41 AM EST [facility] BUN/Creatinine Ratio 15.9 7.0 - 25.0 05/08/2025 8:41 AM EST [facility] Anion Gap 7.0 5.0 - 15.0 mmol/L 05/08/2025 8:41 AM [facility] eGFR 101.2 >60.0 mL/min/1.7 3 05/08/2025 8:41 AM [facility] Blood Venipuncture / Unknown 05/08/2025 7:44 AM EST 05/08/2025 8:18 AM EST [facility] - 05/08/2025 8:41 AM EST [...] MD LAB BLOOD ORDERABLES Final Re sult [facility]
[address] [place] [address], * ECG 12 Lead Bradycardia (05/08/2025 5:44 AM EST) QT Interval 490 ms ECG QTC Interval 455 ms ECG 05/08/2025 5:44 AM EST 05/09/2025 3:21 PM EST Narrative ECG - 05/09/2025 3:21 PM EST Test [...] MD ECG ORDERABLES Final Result ECG * IMAGING SCANNED (05/08/2025) Only the most recent of5 resultswithin the time period is included. Anatomical Region Laterality Modality Radiographic Renata ging [facility] IMG DIAGNOSTIC IMAGING ORDERA BLES Final Result * LABS SCANNED (05/08/2025) us [facility] Onbase LAB BLOOD ORDERABLES Final Re sult * XR Outside Chest (05/07/2025 12:20 AM EST) Narrative SYSTEMGENERATED, DOCUMENTATION - 05/12/2025 12:06 PM EST This procedure was auto-finalized with no dictation required. us [employer] IMG DIAGNOSTIC IMAGING ORD ERABLES Final Result * CT Outside Head (05/07/2025 12:15 AM EST) Only the most recent of2 resultswithin the time period is included. Narrative SYSTEMGENERATED, DOCUMENTATION - 05/12/2025 12:03 PM EST This procedure was auto-finalized with no dictation required. us [employer] IMG CT ORDERABLES Final Re sult * CT Outside Spine (05/07/2025 12:10 AM EST) Narrative SYSTEMGENERATED, DOCUMENTATION - 05/12/2025 11:59 AM EST This procedure was auto-finalized with no dictation required. us [employer] IMG CT ORDERABLES Final Re sult * CT Outside Neck (05/07/2025 12:05 AM EST) Narrative SYSTEMGENERATED, DOCUMENTATION - 05/12/2025 11:53 AM EST This procedure was auto-finalized with no dictation required. us [employer] Outside Films IMG CT ORDERABLES Final Re sult from Last 3 Months Insurance [employer] FORMERLY [facility] HMO Advance Directives * CPR (Attempt to Resuscitate) (Latest Code Status on File) Date Activated Date Inactivated Comments 05/08/2025 4:52 AM 05/09/2025 12:26 PM Question Answer Comments Code Status (Patient has no pulse and is not breathing): CPR (Attempt to Resuscitate) Medical Interventions (Patie nt has pulse or is breathing): Full Support Care Teams Manufacturing Test Technician Relationship Specialty Start Date End Date Provider, [place] [address] PCP - General 05/08/25
--- OUTSIDE RECORDS SUMMARY | 2025-06-03 16:32 | XMS_ITS | CCD ---
Author Organization Unknown Care Team Providers Care Customer Solutions Representative Name Role Phone Unavailable Primary Care Provider Unavailabl e Unavailable Chronic Care Management Unavaila ble Summary Purpose DataExchange Insurance Providers Payer name Policy type / Coverage type Covered democrat ID Effective Begin Date Effective End Date [facility] [id number] Unknown Unknown Family History Family History data not found Medication Administered No Medication Administered data Reason For Visit No Reason For Visit data Medical Equipment No Medical Equipment data Advance Directives No Advance Directive data
[2025-06-03] MEDS: IPRATROPIUM/ALBUTEROL 3 ML NEB IH (16:35)
[2025-06-03 16:37] VITALS: BP 84/53; PULSE 62; O2SAT 97
[2025-06-03] MEDS: OXYCODONE 5MG W/APAP 325MG TABLET 1 EACH PO (17:13)
[2025-06-03 17:15] VITALS: BP 101/61; PULSE 67; RESP 20; TEMP 36.6; O2SAT 97
== END 2025-06-03 17:15 | disposition home or self-care (01) ==
PROVIDERS: Emergency Provider Student in an Organized Health Care Education/Training Program; PCP Family Medicine
DX: M62.838 Other muscle spasm (principal)
CPT/HCPCS: 99283; 99284